=== PATIENT | female | born 1950 | race Caucasian/White ===

== ENCOUNTER 2019-12-23 17:07 | Outpatient (REF) | payer SELFPAY ==
[2019-12-23 19:35] LABS: Abs Immature Grans 0.08 10^3/uL (0.0-0.06); Absolute Basophil Count 0.04 10^3/uL (0.0-0.2); Absolute Eosinophil Count 0.35 10^3/uL (0.0-0.7); Absolute Lymphocyte Count 2.16 10^3/uL (1.2-3.4); Absolute Monocyte Count 0.66 10^3/uL (0.1-0.8); Absolute Neutrophil Count 5.67 10^3/uL (1.2-6.7); Basophils % 0.4; Eosinophils % 3.9; HCT 31.8 % (36.0-46.0); HGB 8.8 g/dL (11.2-15.7); Immature Grans % 0.9; Lymphocytes % 24.1; MCH 26.3 pg (27.0-33.0); MCHC 27.7 % (32.0-36.0); MCV 95.2 fL (80-95); MPV 9.4 fL (8.0-11.0); Monocytes % 7.4; Neutrophils % 63.3; Nucleated RBC 0 %; Platelet Count 336 10^3/uL (130-400); RBC 3.34 10^6/uL (3.93-5.22); RDW 15.7 % (11.7-14.6); RDW-SD 54.4 fL; WBC 8.96 10^3/uL (4.4-10.8)
[2019-12-23 19:51] LABS: Anion Gap 1.3 mmol/L (3-11); BUN 11 mg/dL (7-18); CO2 37.7 mmol/L (21.0-32.0); CREATININE 0.79 mg/dL (0.55-1.02); Calcium 8.9 mg/dL (8.5-10.1); Chloride 99 mmol/L (98-107); Glucose 111 mg/dL (74-106); Potassium 4.7 mmol/L (3.5-5.1); Sodium 138 mmol/L (136-145); TSH (W/Ref FT4) 18.04 uIU/mL (0.36-3.74)
[2019-12-23 20:14] LABS: FREE T4 0.56 ng/dL (0.76-1.46)
[2019-12-23 20:16] LABS: Hypochromasia 2+
[2019-12-24 17:57] LABS: COVID-19 RT-PCR Result Not Detected ((See Note))
== END 2019-12-23 17:27 ==
LOC: LBN 17:07
PROVIDERS: Visit Provider Family Medicine
DX: E11.9 Type 2 diabetes mellitus without complications (principal); R53.1 Weakness; F39 Unspecified mood [affective] disorder; L03.115 Cellulitis of right lower limb; J44.1 Chronic obstructive pulmonary disease with (acute) exacerbation; E66.01 Morbid (severe) obesity due to excess calories; Z11.59 Encounter for screening for other viral diseases
CPT/HCPCS: 80048; U0003; 83036; 84439; 84443; 85025

== ENCOUNTER 2019-12-31 16:10 | Outpatient (REF) | payer SELFPAY ==
[2020-01-01 18:57] LABS: COVID-19 RT-PCR Result Not detected ((See Note))
== END 2019-12-31 16:30 ==
LOC: LBO 16:10
PROVIDERS: Visit Provider Family Medicine
DX: Z11.59 Encounter for screening for other viral diseases (principal)
CPT/HCPCS: U0003

== ENCOUNTER 2020-01-14 11:32 | Inpatient (IN) | payer MEDICARE, MEDICAID, SELFPAY ==
[2020-01-14] VITALS (82 sets, daily range): BP systolic 94–148; BP diastolic 36–122; PULSE 62–111; RESP 10–28; TEMP 36.4–37.4; O2SAT 80–100
--- NOTE | 2020-01-14 11:45 | RT.EKG_ITS ---
APPROVED REPORT Exam: Resting ECG Patient Location: E HR:70 bpm ECG Measurements Heart Rate 70 AXIS LA 203 P 84 QRSd 130 QRS 78 QT 504 T 100 QTc 543 Conclusion Sinus rhythm...normal P axis, V-rate 60- 99 IVCD, consider RBBB...QRSd>120mS, terminal axis(90,270) Consider anterior infarct...Q >30mS in V2-V5 Repol abnrm suggests ischemia, lateral leads...ST dep, T neg, I aVL V5 V6. No old EKG to compare. No acute ST elevation or depression. I have reviewed and interpreted ECG and agree with software generated interpretation.
--- NOTE | 2020-01-14 11:49 | DI.CT_ITS ---
EXAM: CT HEAD WO CLINICAL HISTORY: AMS. TECHNIQUE: Imaging Protocol: Axial computed tomography images with coronal and sagittal reformatted images were created and reviewed COMPARISON: No exams were available for comparison FINDINGS: The examination is limited due to patient motion artifact. Ventricles and Extra axial spaces: Normal in size and morphology for the patient's age. Hemorrhage: None. Cerebral parenchyma: There are areas of decreased attenuation in the white matter most consistent wit h chronic microvascular ischemic change. No evidence of an acute territorial infarct. Midline shift: None. Brainstem/Cerebellum: Normal. Calvarium: Normal. Visualized Paranasal sinuses/Mastoids: Clear. Soft Tissues: Unremarkable. IMPRESSION: No acute intracranial process. Findings were discussed with the emergency department on the date of the examination. RADIATION DOSE DELIVERED: Total DLP DATA REPOSITORY: All CT scans at this facility are submitted to the National Radiology Data Registry (NRDR) Dose Index Registry (DIR) with the [employer] (ACR). RADIATION OPTIMIZATION: All CT scans at this facility use at least one of these dose optimization te chniques: automated exposure control; mA and/or kV adjustment per patient size (includes targeted exa ms where dose is matched to clinical indication); or iterative reconstruction.
[2020-01-14] MEDS: Normal Saline Flush 10 ML SYR IVP (11:50)
--- NOTE | 2020-01-14 11:55 | ED.GENADUL_ITS ---
Discharge Plan Disposition Patient Disposition: [facility] INPATIENT Condition: Serious Discharge Details Clinical Impression: Altered mental status, Pneumonia, Cellulitis Primary Care Provider: Unknown,Unknown ED Provider: Marcel Hadley Home Meds and New Rx's Prescriptions: No Action aspirin [Aspir-Low] 81 mg Tablet,Delayed Release (Dr/Ec) 81 mg PO QAM RF: 0 citalopram 40 mg tablet 40 mg PO QAM RF: 0 diltiazem HCl [DILT-XR] 240 mg capsule,ext.rel 24h degradable 240 mg PO QAM RF: 0 folic acid 1 mg Tablet 1 mg PO QAM RF: 0 omeprazole 40 mg capsule,delayed release(DR/EC) 40 mg PO QAM RF: 0 Spiriva Respimat 2.5 mcg/actuation mist 1 inh INHALATION DAILY RF: 0 tolterodine 4 mg capsule,extended release 24hr 4 mg PO QAM RF: 0 cyanocobalamin (vitamin B-12) [Vitamin B-12] 100 mcg Tablet 100 mcg PO QAM RF: 0 amiodarone 200 mg tablet 200 mg PO BID RF: 0 budesonide-formoterol [Symbicort] 160-4.5 mcg/actuation HFA aerosol inhaler 2 inh INHALATION BID RF: 0 Eliquis 5 mg tablet 5 mg PO BID RF: 0 metoprolol tartrate 25 mg tablet 25 mg PO BID RF: 0 levothyroxine 75 mcg Tablet 37.5 mcg PO QAM RF: 0 furosemide [Lasix] 20 mg Tablet 20 mg PO QAM RF: 0 albuterol sulfate 90 mcg/actuation HFA aerosol inhaler 2 inh INHALATION Q4H PRNRF: 0 tramadol 50 mg Tablet 50 mg PO QID PRNRF: 0 triamcinolone acetonide 0.5 % cream 1 applic TOPICAL BID PRNRF: 0 acetaminophen [Tylenol] 325 mg Tablet 650 mg PO Q4H PRNRF: 0 sodium chloride [Saline Nasal Mist] 0.65 % Aerosol,[place] 2 spray INTRANASAL Q2H PRNRF: 0 Saline Nasal (aloe vera) Gel 1 applic intranasal TID PRNRF: 0 epinephrine [Epi E-Z Pen] 0.3 mg/0.3 mL Auto-Injector 0.3 mg IM PRN PRNRF: 0 polyethylene glycol 3350 [Miralax] 17 gram/dose Powder 17 g PO DIRECTED RF: 0 metformin [Glucophage] 1,000 mg Tablet 1,000 mg PO BID RF: 0 Medical Decision Making This is a 69-year-old female with past medical history that includes diabetes, morbid obesity, COPD, atrial fibrillation, on Eliquis. She has recently been placed into a penitentiary and did complete a 14-day quarantine. Presents to the ER today for decreased mental status that began this morning, did vomit x1 this morning after taking medications, and staff reports low-grade fever of 99.8 and no bowel movement in the past 5 days. Patient currently awake, alert to self, knows that she is at a hospital, and has no complaints. She denies any pain whatsoever. HPI and physical are both limited secondary to her mental status and her body habitus. Will initiate a septic and cardiac work-up. We will give a single liter IV fluid. Clinically she does appear to have mild left lower extremity cellulitis. Will obtain CT of head for altered mental status. Laboratory values reveal a white blood cell count of 34.05 hemoglobin 8.3 hematocrit 28.7 platelet count 295. INR 1.2 potassium 3.9 BUN 18 creatinine 0.94 with a GFR of 58.70. Glucose 177. Magnesium 1.6, will give 1 g IV. BNP 1645. Troponin less than 0.05. TSH 4.91 Free T4 0.74. Urine is clear, negative for blood, negative nitrate, negative leuk esterase. Patient has remained hemodynamically stable under my care. Clinically she does have a mild cellulitis that left lower extremity, it is certainly not impressive, difficult to believe that it explains her white blood cell count of 34.05. Given the limited HPI and physical, will add on CT imaging with contrast of chest, abdomen, pelvis. We will be able to better evaluate for potential infectious process, pneumonia, small bowel obstruction, etc. The CT of head read as no acute intracranial process. CT imaging of chest, abdomen, pelvis read as no acute abdominal or pelvic process. Colonic diverticulosis but no evidence of acute diverticulitis. Mildly enlarged lymph nodes in the axilla and pelvis, these are nonspecific. Small infiltrate medially in the right middle lobe and left lingula, this may represent atelectasis, pneumonia, scarring. Given her decreased mental status, elevated white count, I do believe that admission is prudent. Case was discussed with Dr. Mayfield, potential source of cellulitis and/or pneumonia. She recommends both vancomycin and ceftriaxone, I did write for both of antibiotics. She is agreeable to admission. Medical Records Medical records reviewed: Yes I reviewed the patient's medical records. Lab Data Lab results reviewed: Yes I reviewed the patient's lab results. Lab results narrative: 01/14/20 12:55 Blood Blood Culture - Pending 01/14/20 11:50 Blood Blood Culture - Pending 01/14/20 12:12 Nose MRSA Screen - Pending Laboratory Tests Range/Units 01/14/20 01/14/20 01/14/20 11:50 11:50 11:50 WBC (4.4-10.8) 10^3/uL 34.05 H* RBC (3.93-5.22) 10^6/uL 3.31 L Hgb (11.2-15.7) g/dL 8.3 L Hct (36.0-46.0) % 28.7 L MCV (80-95) fL 86.7 MCH (27.0-33.0) pg 25.1 L MCHC (32.0-36.0) % 28.9 L RDW (11.7-14.6) % 17.5 H Plt Count (130-400) 10^3/uL 295 MPV (8.0-11.0) fL 8.9 Immature Gran % See Differential Neutrophils % 94.0 Lymphocytes % 1.0 Monocytes % 3.0 Eosinophils % 0.0 Basophils % 0.0 Metamyelocytes % 1 Myelocytes % 1 Nucleated RBC % % 0 Absolute Neutrophils (1.2-6.7) 10^3/uL 32.01 H Absolute Lymphocytes (1.2-3.4) 10^3/uL 0.34 L Absolute Monocytes (0.1-0.8) 10^3/uL 1.02 H Absolute Eosinophils (0.0-0.7) 10^3/uL 0.00 Absolute Basophils (0.0-0.2) 10^3/uL 0.00 RBC Morphology See below Polychromasia Present Hypochromasia 2+ Anisocytosis 1+ PT (9.3-11.0) sec 12.1 H INR (0.9-1.1) 1.2 H VBG Lactate (0.6-1.4) mmol/L Sodium (136-145) mmol/L 136 Potassium (3.5-5.1) mmol/L 3.9 Chloride (98-107) mmol/L 96 L Carbon Dioxide (21.0-32.0) mmol/L 32.2 H Anion Gap (3-11) mmol/L 7.8 BUN (7-18) mg/dL 18 Creatinine (0.55-1.02) mg/dL 0.94 Estimated GFR/1.73 m2 (mL/min/1.73m2) 58.70 Glucose (74-106) mg/dL 177 H Calcium (8.5-10.1) mg/dL 8.5 Magnesium (1.8-2.4) mg/dL 1.6 L Total Bilirubin (0.2-1.0) mg/dL 0.3 AST (15-37) U/L 24 ALT (14-59) U/L 21 Alkaline Phosphatase (46-116) U/L 75 Troponin I (<0.06) ng/mL < 0.05 NT-Pro-B Natriuret Pep (<300) pg/mL Total Protein (6.4-8.2) g/dL 6.7 Albumin (3.4-5.0) g/dL 2.7 L TSH (0.36-3.74) uIU/mL 4.62 H Free T4 (0.76-1.46) ng/dL Urine Color (Yellow) Urine Clarity (Clear) Urine pH (5-8) Ur Specific [place] (1.005-1.025) Urine Protein (Negative) mg/dL Urine Ketones (Negative) mg/dL Urine Blood (Negative) Urine Nitrite (Negative) Urine Bilirubin (Negative) Urine Urobilinogen (Up TO 0.2) EU/dL Ur Leukocyte Esterase (Negative) Urine RBC (0-2) HPF Urine WBC (0-5) HPF Ur Epithelial Cells (Negative) HPF Urine Crystals (Negative) HPF Urine Bacteria (Negative) HPF Urine Casts (Negative) LPF Urine Mucus (Negative) Ur Culture Indicated? Urine Glucose (Negative) mg/dL COVID-19 PCR Nasopharyn COVID-19 PCR Ref Test Perform Site Range/Units 01/14/20 01/14/20 01/14/20 11:50 12:12 12:12 WBC (4.4-10.8) 10^3/uL RBC (3.93-5.22) 10^6/uL Hgb (11.2-15.7) g/dL Hct (36.0-46.0) % MCV (80-95) fL MCH (27.0-33.0) pg MCHC (32.0-36.0) % RDW (11.7-14.6) % Plt Count (130-400) 10^3/uL MPV (8.0-11.0) fL Immature Gran % Neutrophils % Lymphocytes % Monocytes % Eosinophils % Basophils % Metamyelocytes % Myelocytes % Nucleated RBC % % Absolute Neutrophils (1.2-6.7) 10^3/uL Absolute Lymphocytes (1.2-3.4) 10^3/uL Absolute Monocytes (0.1-0.8) 10^3/uL Absolute Eosinophils (0.0-0.7) 10^3/uL Absolute Basophils (0.0-0.2) 10^3/uL RBC Morphology Polychromasia Hypochromasia Anisocytosis PT (9.3-11.0) sec INR (0.9-1.1) VBG Lactate (0.6-1.4) mmol/L Sodium (136-145) mmol/L Potassium (3.5-5.1) mmol/L Chloride (98-107) mmol/L Carbon Dioxide (21.0-32.0) mmol/L Anion Gap (3-11) mmol/L BUN (7-18) mg/dL Creatinine (0.55-1.02) mg/dL Estimated GFR/1.73 m2 (mL/min/1.73m2) Glucose (74-106) mg/dL Calcium (8.5-10.1) mg/dL Magnesium (1.8-2.4) mg/dL Total Bilirubin (0.2-1.0) mg/dL AST (15-37) U/L ALT (14-59) U/L Alkaline Phosphatase (46-116) U/L Troponin I (<0.06) ng/mL NT-Pro-B Natriuret Pep (<300) pg/mL 1645 H Total Protein (6.4-8.2) g/dL Albumin (3.4-5.0) g/dL TSH (0.36-3.74) uIU/mL Free T4 (0.76-1.46) ng/dL Urine Color (Yellow) Yellow Urine Clarity (Clear) Clear Urine pH (5-8) 8.5 H Ur Specific [place] (1.005-1.025) 1.020 Urine Protein (Negative) mg/dL Trace H Urine Ketones (Negative) mg/dL Trace H Urine Blood (Negative) Negative Urine Nitrite (Negative) Negative Urine Bilirubin (Negative) Negative Urine Urobilinogen (Up TO 0.2) EU/dL 0.2 Ur Leukocyte Esterase (Negative) Negative Urine RBC (0-2) HPF Negative Urine WBC (0-5) HPF 0-2 Ur Epithelial Cells (Negative) HPF Moderate Urine Crystals (Negative) HPF Negative Urine Bacteria (Negative) HPF Negative Urine Casts (Negative) LPF Negative Urine Mucus (Negative) Trace Ur Culture Indicated? No/sq. contamination Urine Glucose (Negative) mg/dL Negative COVID-19 PCR Cancelled Nasopharyn COVID-19 PCR Cancelled Ref Test Perform Site Cancelled Range/Units 01/14/20 01/14/20 12:55 12:55 WBC (4.4-10.8) 10^3/uL RBC (3.93-5.22) 10^6/uL Hgb (11.2-15.7) g/dL Hct (36.0-46.0) % MCV (80-95) fL MCH (27.0-33.0) pg MCHC (32.0-36.0) % RDW (11.7-14.6) % Plt Count (130-400) 10^3/uL MPV (8.0-11.0) fL Immature Gran % Neutrophils % Lymphocytes % Monocytes % Eosinophils % Basophils % Metamyelocytes % Myelocytes % Nucleated RBC % % Absolute Neutrophils (1.2-6.7) 10^3/uL Absolute Lymphocytes (1.2-3.4) 10^3/uL Absolute Monocytes (0.1-0.8) 10^3/uL Absolute Eosinophils (0.0-0.7) 10^3/uL Absolute Basophils (0.0-0.2) 10^3/uL RBC Morphology Polychromasia Hypochromasia Anisocytosis PT (9.3-11.0) sec INR (0.9-1.1) VBG Lactate (0.6-1.4) mmol/L 1.9 H Sodium (136-145) mmol/L Potassium (3.5-5.1) mmol/L Chloride (98-107) mmol/L Carbon Dioxide (21.0-32.0) mmol/L Anion Gap (3-11) mmol/L BUN (7-18) mg/dL Creatinine (0.55-1.02) mg/dL Estimated GFR/1.73 m2 (mL/min/1.73m2) Glucose (74-106) mg/dL Calcium (8.5-10.1) mg/dL Magnesium (1.8-2.4) mg/dL Total Bilirubin (0.2-1.0) mg/dL AST (15-37) U/L ALT (14-59) U/L Alkaline Phosphatase (46-116) U/L Troponin I (<0.06) ng/mL NT-Pro-B Natriuret Pep (<300) pg/mL Total Protein (6.4-8.2) g/dL Albumin (3.4-5.0) g/dL TSH (0.36-3.74) uIU/mL 4.91 H Free T4 (0.76-1.46) ng/dL 0.74 L Urine Color (Yellow) Urine Clarity (Clear) Urine pH (5-8) Ur Specific [place] (1.005-1.025) Urine Protein (Negative) mg/dL Urine Ketones (Negative) mg/dL Urine Blood (Negative) Urine Nitrite (Negative) Urine Bilirubin (Negative) Urine Urobilinogen (Up TO 0.2) EU/dL Ur Leukocyte Esterase (Negative) Urine RBC (0-2) HPF Urine WBC (0-5) HPF Ur Epithelial Cells (Negative) HPF Urine Crystals (Negative) HPF Urine Bacteria (Negative) HPF Urine Casts (Negative) LPF Urine Mucus (Negative) Ur Culture Indicated? Urine Glucose (Negative) mg/dL COVID-19 PCR Nasopharyn COVID-19 PCR Ref Test Perform Site ECG Data Attestation: I personally reviewed and interpreted this ECG (s) as follows: Interpretation: Please see official report by Dr. Davis. Sinus rhythm, ventricular to 70. No STEMI. HPI General Mode of arrival: EMS . Date/Time Provider Initiated Documentation: 01/14/20 11:49 . Limitations to Documentation: altered mental status . Information obtained by: patient, EMS and old records reviewed . HPI Narrative: This is a 69-year-old female with past medical history atrial fibrillation, bilateral lower extremity cellulitis, COPD, diabetes, mood disorder, obesity, generalized muscle weakness presenting from local [facility] for evaluation. Patient sent to the ER for evaluation of altered mental status that began this morning associate with a temperature of 99.8. Patient is a fairly new resident of this penitentiary and did have to do a 14-day quarantine before going into the general population. Patient at this time denies any pain, is unsure why she is here. She is able to tell me that she does have frequent falls but denies any fall over the past 24 hours or recent injuries from her falls. She denies headache, neck pain, chest pain. She reports that her breathing status is at baseline, typically on 4 L nasal cannula. Denies abdominal pain, nausea, vomiting. Patient is only able to partially partake in her HPI and examination. I did need to review records from her penitentiary. Apparently the patient has been on doxycycline for bilateral lower extremity cellulitis. She is also on Eliquis. We were told from the penitentiary that she has not had a normal bowel movement in 5 days and did vomit once this morning after taking her medications. Related Data Home Medications Medication Instructions Recorded Confirmed acetaminophen [Tylenol] 650 mg PO Q4H PRN 01/14/20 01/14/20 albuterol sulfate 2 inh INHALATION Q4H PRN 01/14/20 01/14/20 amiodarone 200 mg PO BID 01/14/20 01/14/20 apixaban [Eliquis] 5 mg PO BID 01/14/20 01/14/20 aspirin [Aspir-Low] 81 mg PO QAM 01/14/20 01/14/20 budesonide-formoterol [Symbicort] 2 inh INHALATION BID 01/14/20 01/14/20 citalopram 40 mg PO QAM 01/14/20 01/14/20 cyanocobalamin (vitamin B-12) 100 mcg PO QAM 01/14/20 01/14/20 [Vitamin B-12] diltiazem HCl [DILT-XR] 240 mg PO QAM 01/14/20 01/14/20 epinephrine [Epi E-Z Pen] 0.3 mg IM PRN PRN 01/14/20 01/14/20 folic acid 1 mg PO QAM 01/14/20 01/14/20 furosemide [Lasix] 20 mg PO QAM 01/14/20 01/14/20 levothyroxine 37.5 mcg PO QAM 01/14/20 01/14/20 metformin [Glucophage] 1,000 mg PO BID 01/14/20 01/14/20 metoprolol tartrate 25 mg PO BID 01/14/20 01/14/20 omeprazole 40 mg PO QAM 01/14/20 01/14/20 polyethylene glycol 3350 [Miralax] 17 g PO DIRECTED 01/14/20 01/14/20 sodium chloride [Saline Nasal Mist] 2 spray INTRANASAL Q2H PRN 01/14/20 01/14/20 sodium chloride-aloe vera [Saline 1 applic INTRANASAL TID PRN 01/14/20 01/14/20 Nasal (aloe vera)] tiotropium bromide [Spiriva 1 inh INHALATION DAILY 01/14/20 01/14/20 Respimat] tolterodine 4 mg PO QAM 01/14/20 01/14/20 tramadol 50 mg PO QID PRN 01/14/20 01/14/20 triamcinolone acetonide 1 applic TOPICAL BID PRN 01/14/20 01/14/20 Allergies Allergy/AdvReac Type Severity Reaction Status Date / Time bee venom protein (honey bee) Allergy Unknown Unverified 01/14/20 11:44 Penicillins Allergy Unknown Unverified 01/14/20 11:43 strawberry Allergy Unknown Unverified 01/14/20 11:43 General Stated Complaint: AMS/LOC KENDRICK: 2 Review of Systems Constitutional Constitutional: Denies fatigue, Reports fever(s) and Denies headache(s) Eyes Eyes: Denies change in vision ENT Ears, Nose, Mouth, and Throat: Denies headache(s) and Denies neck pain Cardiovascular Cardiovascular: Denies chest pain and Reports dyspnea (At baseline) Respiratory Respiratory: Denies cough and Reports dyspnea (At baseline) Gastrointestinal Gastrointestinal: Denies abdominal pain, Reports constipation, Denies nausea and Reports vomiting Genitourinary Genitourinary: Denies dysuria Musculoskeletal Musculoskeletal: Denies back pain and Denies neck pain Integumentary/Breasts Skin/Breast: Reports erythema and Reports rash Neurologic Neurologic: Denies headache(s) Endocrine Endocrine: Denies fatigue [facility] Medical History Atrial fibrillation Cellulitis bilateral lower extremities COPD (chronic obstructive pulmonary disease) Diabetes mellitus Mood disorder Muscle weakness (generalized) Obesity Social History Smoking risk assessment performed?: No Exam Const General: cooperative, comfortable, in distress, disheveled and ill appearing Nutritional Appearance: obese morbidly obese Orientation: alert, awake, oriented to person, oriented to place (Patient notes that she is in a hospital, [place] [facility] [place] and not oriented to time Limitations: altered mental status HENMT Head: normal to inspection, normocephalic and atraumatic Face and sinus: normal facial exam Mouth: moist mucous membranes Throat: posterior oropharynx normal Eyes General: appearance normal, both eyes and all related structures Alignment and Position: alignment normal Periorbital: periorbital findings normal Eyelids: eyelids normal Conjunctivae: conjunctivae normal Sclera: sclerae normal Cornea: corneas normal Pupils: PERRL EOM: EOM intact bilaterally Direct ophthalmoscopy: normal light reflex Neck Neck: normal visual inspection, full ROM, no lymphadenopathy, no meningeal signs, trachea midline, supple and nontender Resp Effort & Inspection: normal respiratory effort and able to speak in complete sentences Auscultation: diminished lung sounds bilaterally in the lower lung askew Cardio Rate: regular rate Rhythm: regular rhythm GI Inspection: large pannus and obesity Palpation: soft, no guarding and nontender Auscultation: normal bowel sounds Back/Spine/Pelvis Back: No back tenderness Skin Other: Patient does have a rash consistent with candidiasis in her skin folds. Neuro General: patient alert, patient awake, oriented Patient Orientation: Person, Place (Aware this is a hospital, believed [facility] [place] and Time, moves all extremities, no meningeal signs and no focal motor deficits Cranial Nerves: CN's II-XI intact bilaterally Motor: muscle tone normal throughout and strength 5/5 throughout Sensory Exam: no sensory deficits noted Extrem Right upper extremity: normal to inspection, full ROM and normal capillary refill Left upper extremity: normal to inspection, full ROM and normal capillary refill Right lower extremity: full ROM, normal capillary refill and edema Details: 2+ Left lower extremity: full ROM, normal capillary refill and edema Details: 3+ (With weeping and mild surrounding erythema-no warmth) Psych Appearance: grossly normal Mental Status: mental status grossly normal Course Vital Signs Vital signs: Vital Signs Temperature 37.4 C 01/14/20 11:33 Pulse 76 01/14/20 11:33 Respiratory Rate 24 01/14/20 11:33 Blood Pressure 122/54 L 01/14/20 11:33 Pulse Oximetry 97 01/14/20 11:33 Temperature 37.4 C 01/14/20 11:33 Temperature Source Skin 01/14/20 11:33 Pulse 76 01/14/20 11:33 Respiratory Rate 24 01/14/20 11:33 Blood Pressure 122/54 L 01/14/20 11:33 Pulse Oximetry 97 01/14/20 11:33 Oxygen Delivery Method Non-Rebreather 01/14/20 11:33 Pain Level 0 01/14/20 11:33 Comment cellulitis bilateral lower legs 01/14/20 11:33
[2020-01-14 12:24] LABS: Bilirubin Negative (Negative); Blood Negative (Negative); Clarity Clear (Clear); Glucose Negative (Negative); Ketones Trace mg/dL (Negative); Leukocyte Esterase Negative (Negative); Nitrite Negative (Negative); Urobilinogen 0.2 EU/dL (Up TO 0.2); pH 8.5 (5-8)
[2020-01-14 12:28] LABS: Abs Immature Grans 0.64 10^3/uL (0.0-0.06); HCT 28.7 % (36.0-46.0); HGB 8.3 g/dL (11.2-15.7); MCH 25.1 pg (27.0-33.0); MCHC 28.9 % (32.0-36.0); MCV 86.7 fL (80-95); MPV 8.9 fL (8.0-11.0); Nucleated RBC 0 %; Platelet Count 295 10^3/uL (130-400); RBC 3.31 10^6/uL (3.93-5.22); RDW 17.5 % (11.7-14.6); RDW-SD 55.4 fL
[2020-01-14 12:41] LABS: INR 1.2 (0.9-1.1); Prothrombin Time 12.1 sec (9.3-11.0)
[2020-01-14 12:47] LABS: NT-proBNP 1645 pg/mL (<300)
[2020-01-14 12:50] LABS: ALT 21 U/L (14-59); AST 24 U/L (15-37); Albumin 2.7 g/dL (3.4-5.0); Alkaline Phosphatase 75 U/L (46-116); Anion Gap 7.8 mmol/L (3-11); BUN 18 mg/dL (7-18); Bilirubin, Total 0.3 mg/dL (0.2-1.0); CO2 32.2 mmol/L (21.0-32.0); CREATININE 0.94 mg/dL (0.55-1.02); Calcium 8.5 mg/dL (8.5-10.1); Chloride 96 mmol/L (98-107); Glucose 177 mg/dL (74-106); Magnesium 1.6 mg/dL (1.8-2.4); Potassium 3.9 mmol/L (3.5-5.1); Sodium 136 mmol/L (136-145); TSH 4.62 uIU/mL (0.36-3.74); Total Protein 6.7 g/dL (6.4-8.2)
[2020-01-14 12:54] LABS: WBC 34.05 10^3/uL (4.4-10.8)
[2020-01-14 12:55] LABS: Absolute Lymphocyte Count 0.34 10^3/uL (1.2-3.4); Absolute Monocyte Count 1.02 10^3/uL (0.1-0.8); Absolute Neutrophil Count 32.01 10^3/uL (1.2-6.7); Anisocytosis 1+; Diff Comment Manual Differential; Metamyelocytes % 1; Myelocytes % 1
[2020-01-14 12:56] LABS: Hypochromasia 2+; Polychromasia Present
--- NOTE | 2020-01-14 12:59 | DI.CT_ITS ---
EXAM: CT CHEST/ABD/PEL W CLINICAL HISTORY: AMS, WBC 34 TECHNIQUE: Imaging Protocol: Axial computed tomography images with coronal and sagittal reformatted images were created and reviewed CONTRAST MATERIAL: Intravenous: Omnipaque 350 Contrast volume:100 mL Oral: No COMPARISON: No exams were available for comparison FINDINGS: The examination is limited due to patient motion artifact. CHEST: Tracheobronchial tree: Patent where visualized. Mediastinum and Kirsten: No dominant adenopathy or fluid collection. Pulmonary parenchyma: Small infiltrates are seen in the medial aspects of the right middle lobe and t he left lingula. This may represent atelectasis, pneumonia or scarring. No architectural distortion . Pleura: No effusion or pneumothorax. Heart: Cardiomegaly. No coronary artery calcifications are seen. No pericardial effusion. Aorta: Thoracic aorta non-dilated. Atherosclerosis. Calcification of the aortic valve. Lymph nodes: Mildly enlarged lymph nodes in the axilla. Bones:Degenerative changes. Soft tissues: Unremarkable. ABDOMEN: Liver: Normal density. No measurable mass. Portal, Superior Mesenteric, and Splenic Veins: Unremarkable. Gallbladder and Biliary Tract: No radiodense calculus or dilation. Pancreas: Normal density, no abnormal calcifications or inflammatory process. Spleen: Normal. Adrenals: No masses seen. Kidneys: Normal size, contour and axis. No radiodense stones or obstructive uropathy. Simple left nida al cysts. Abdominal Aorta: Abdominal portion non-dilated. Atherosclerosis. Bowel: No obstruction or bowel wall thickening. No evidence of acute appendicitis. Colonic diverticu losis but no evidence of acute diverticulitis. Peritoneal Cavity: No ascites, collection or mesenteric inflammatory response. Lymph Nodes: Mildly enlarged lymph nodes in the pelvis. The largest measures 2.3 x 1.3 cm. It is lo cated in the left external iliac chain. Mildly enlarged lymph nodes in the inguinal region bilateral ly. Bones: Degenerative changes Soft Tissues: Mild edema in the in the subcutaneous tissues of the anterior abdominal wall. PELVIS: Bladder: A Hoffmann catheter within the urinary bladder. Reproductive Organs: Status post hysterectomy. Lymph Nodes: See above. Bones: Within normal limits. IMPRESSION: 1. No acute abdominal or pelvic process. 2. Colonic diverticulosis but no evidence of acute diverticulitis. 3. Mildly enlarged lymph loads in the axilla and pelvis. These are nonspecific. 4. Small infiltrates medially in the right middle lobe and left lingula. This may represent atelecta sis, pneumonia or scarring. 5. Findings were discussed with the emergency department on the date of the examination. RADIATION DOSE DELIVERED: Total DLP DATA REPOSITORY: All CT scans at this facility are submitted to the National Radiology Data Registry (NRDR) Dose Index Registry (DIR) with the [employer] ([employer]). RADIATION OPTIMIZATION: All CT scans at this facility use at least one of these dose optimization te chniques: automated exposure control; mA and/or kV adjustment per patient size (includes targeted exa ms where dose is matched to clinical indication); or iterative reconstruction.
[2020-01-14 13:03] LABS: Troponin I < 0.05 ng/mL (<0.06)
[2020-01-14 13:05] LABS: Bacteria Negative HPF (Negative); C & S Indicated? No/Sq. Contamination; Casts Negative LPF (Negative); Crystals Negative HPF (Negative); Epithelial Cells Moderate HPF (Negative); Mucus Trace (Negative); RBC Negative HPF (0-2); WBC 0-2 HPF (0-5)
[2020-01-14 13:18] LABS: Lactate 1.9 mmol/L (0.6-1.4)
[2020-01-14] MEDS: Omnipaque 350 MG/ML 100 ML BTL IV (13:21)
[2020-01-14 13:43] LABS: TSH (W/Ref FT4) 4.91 uIU/mL (0.36-3.74)
[2020-01-14] MEDS: Normal Saline 1,000 ML 1000 ML IV (13:48)
[2020-01-14] MEDS: MAGNESIUM SULFATE 1 GM/100 ML BAG IVPB ×2 (13:49→17:53)
[2020-01-14 14:00] LABS: FREE T4 0.74 ng/dL (0.76-1.46)
[2020-01-14 15:32] LABS: Procalcitonin 1.8 ng/mL
[2020-01-14] MEDS: cefTRIAXone 2 GM/50 ML BAG IVPB (15:34)
--- NOTE | 2020-01-14 15:56 | W.PM.HP.N ---
Date of service: 01/14/20 Time of Service: 15:56 Assessment and Plan Assessment and plan (1) Sepsis: Status: Acute Assessment and plan: Likely multifactorial, due to PNA and cellulitis LLE, present on admission. Blood cultures are pending. Continue empiric vancomycin/ceftriaxone. Clinically the patient cannot tolerate IVF at this time as she is requiring diuresis. Will attempt to obtain/review past medical records to help guide further antibiotic therapy. (2) Acute on chronic respiratory failure with hypoxia and hypercapnia: Status: Acute Assessment and plan: Due to PNA, acute exacerbation of COPD, suspected OHS. Checking ABG. Admit to the ICU on BiPAP with steroids, scheduled and prn nebs. Repeat ABG in 1 hour. Diurese, treat PNA. (3) Pneumonia: Status: Acute Assessment and plan: As above (4) Cellulitis: Status: Acute Assessment and plan: As above (5) Toxic metabolic encephalopathy: Status: Acute Assessment and plan: Likely combination of septic + CO2 retention (ABG pending to confirm). Monitor mental status with above measures. (6) CHF (congestive heart failure): Status: Chronic Assessment and plan: Acute on chronic. Diurese with IV lasix. Check echo. MOnitor I/O's, daily weights. Has a kebede. Cardiac monitoring to ensure that does not have rapid afib. (7) Hypomagnesemia: Status: Acute Assessment and plan: Replete and recheck in am (8) Obesity: Status: Chronic Assessment and plan: Likely has underlying OHS. ABG is being checked, but it is possible that the patient should not just be on oxygen, but also on BiPAP at night, based on her appearance. (9) DVT prophylaxis: Status: Acute Assessment and plan: On therapeutic eliquis (10) Discharge planning issues: Status: Acute Assessment and plan: Full code per records at the [facility]. Patient cannot cooperate with this conversation at this time Patient is being admitted to the ICU as a PUI. Total Critical Care Time - 1 hour. 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 In the ED, her temperature is 37.4, and reportedly she is A&Ox3. Her imaging shows a possible right middle lobe and left lingular pneumonia. Her WBC count was 34.05, and procalcitonin is 1.8, warranting initiation of empiric antibiotics (vancomycin, ceftriaxone; she is allergic to penicillins). Her UA is negative; blood cultures are pending. We were asked to admit the patient for further care. On my exam, the patient is shaking, lethargic. She arouses with difficulty to both verbal and painful stimuli. She answers yes to feeling cold and being short of breath. She does not answer my other questions. I am unable to get her PMHx from her. She cannot have a code status discussion with me at this time. Review of Systems Narrative: The patient does report feeling cold and short of breath. She is not answering my other questions. All systems reviewed & are unremarkable except as noted in HPI and below and Unobtainable due to mental condition [facility] Medical History Atrial fibrillation Cellulitis bilateral lower extremities Chronic respiratory failure with hypoxia COPD (chronic obstructive pulmonary disease) Diabetes mellitus Family history unobtainable due to patient's condition Mood disorder Muscle weakness (generalized) Obesity Surgical History Surgical history unknown Family History (Updated 01/14/20 @ 16:28 by Tawnya Mayfield MD) Other Family history unobtainable due to patient's condition Social History Smoking risk assessment performed?: No Meds Home Medications and Allergies Home Medications Medication Instructions Recorded Confirmed Type acetaminophen [Tylenol] 650 mg PO Q4H PRN 01/14/20 01/14/20 History albuterol sulfate 2 inh INHALATION Q4H PRN 01/14/20 01/14/20 History amiodarone 200 mg PO BID 01/14/20 01/14/20 History apixaban [Eliquis] 5 mg PO BID 01/14/20 01/14/20 History aspirin [Aspir-Low] 81 mg PO QAM 01/14/20 01/14/20 History budesonide-formoterol [Symbicort] 2 inh INHALATION BID 01/14/20 01/14/20 History citalopram 40 mg PO QAM 01/14/20 01/14/20 History cyanocobalamin (vitamin B-12) 100 mcg PO QAM 01/14/20 01/14/20 History [Vitamin B-12] diltiazem HCl [DILT-XR] 240 mg PO QAM 01/14/20 01/14/20 History epinephrine [Epi E-Z Pen] 0.3 mg IM PRN PRN 01/14/20 01/14/20 History folic acid 1 mg PO QAM 01/14/20 01/14/20 History furosemide [Lasix] 20 mg PO QAM 01/14/20 01/14/20 History levothyroxine 37.5 mcg PO QAM 01/14/20 01/14/20 History metformin [Glucophage] 1,000 mg PO BID 01/14/20 01/14/20 History metoprolol tartrate 25 mg PO BID 01/14/20 01/14/20 History omeprazole 40 mg PO QAM 01/14/20 01/14/20 History polyethylene glycol 3350 [Miralax] 17 g PO DIRECTED 01/14/20 01/14/20 History sodium chloride [Saline Nasal Mist] 2 spray INTRANASAL Q2H PRN 01/14/20 01/14/20 History sodium chloride-aloe vera [Saline 1 applic INTRANASAL TID PRN 01/14/20 01/14/20 History Nasal (aloe vera)] tiotropium bromide [Spiriva 1 inh INHALATION DAILY 01/14/20 01/14/20 History Respimat] tolterodine 4 mg PO QAM 01/14/20 01/14/20 History tramadol 50 mg PO QID PRN 01/14/20 01/14/20 History triamcinolone acetonide 1 applic TOPICAL BID PRN 01/14/20 01/14/20 History Allergies Allergy/AdvReac Type Severity Reaction Status Date / Time bee venom protein (honey bee) Allergy Unknown Unverified 01/14/20 11:44 Penicillins Allergy Unknown Unverified 01/14/20 11:43 strawberry Allergy Unknown Unverified 01/14/20 11:43 Exam Narrative Exam Narrative: General: Obese, tremulous female, confused, lethargic, arousable after some painful/loud verbal stimuli, answers very few questions, grunting on exhalation, tachypneic Neurological: lethargic, arousable, A&Ox1, difficult to perform a full neurological examination due to mental status, but no obvious focal deficits Psychiatric: difficult to examine due to mental status Skin: LLE erythema c/w mild cellulitis HEENT: [place], normocephalic, EOMI, dry MM, patient not coopeartive with opening mouth for exam, large neck diameter, unable to truly tell if she has a goiter or JVD, no lymphadenopathy Cardiovascular: RRR, no m/r/g Lungs: tachypenic, quiet rhonchi/rales on expiration Gastrointestinal: soft, nontender,nondistended Genitourinary: has a kebede Extremities: 2+ BLE edema, no c/c, no lesions on B feet; LLE erythematous c/w cellulitis, 1+ pedal pulses B Results Imaging Additional studies: CT head: No acute intracranial process. CT chest/abdomen/pelvis: 1. No acute abdominal or pelvic process. 2. Colonic diverticulosis but no evidence of acute diverticulitis. 3. Mildly enlarged lymph loads in the axilla and pelvis. These are nonspecific. 4. Small infiltrates medially in the right middle lobe and left lingula. This may represent atelectasis, pneumonia or scarring. 5. Findings were discussed with the emergency department on the date of the examination. EKG: HR 70, RBBB, no acute ischemia, no prior to compare Labs Result diagrams: 01/14/20 11:50 01/14/20 11:50 Labs: Laboratory Results - last 24 hr 01/14/20 01/14/20 01/14/20 11:50 11:50 11:50 WBC 34.05 H* RBC 3.31 L Hgb 8.3 L Hct 28.7 L MCV 86.7 MCH 25.1 L MCHC 28.9 L RDW 17.5 H Plt Count 295 MPV 8.9 Immature Gran % See Differential Neutrophils % 94.0 Lymphocytes % 1.0 Monocytes % 3.0 Eosinophils % 0.0 Basophils % 0.0 Metamyelocytes % 1 Myelocytes % 1 Nucleated RBC % 0 Absolute Neutrophils 32.01 H Absolute Lymphocytes 0.34 L Absolute Monocytes 1.02 H Absolute Eosinophils 0.00 Absolute Basophils 0.00 RBC Morphology See below Polychromasia Present Hypochromasia 2+ Anisocytosis 1+ PT 12.1 H INR 1.2 H VBG Lactate Sodium 136 Potassium 3.9 Chloride 96 L Carbon Dioxide 32.2 H Anion Gap 7.8 BUN 18 Creatinine 0.94 Estimated GFR/1.73 m2 58.70 Glucose 177 H Calcium 8.5 Magnesium 1.6 L Total Bilirubin 0.3 AST 24 ALT 21 Alkaline Phosphatase 75 Troponin I < 0.05 NT-Pro-B Natriuret Pep Total Protein 6.7 Albumin 2.7 L Procalcitonin TSH 4.62 H Free T4 Urine Color Urine Clarity Urine pH Ur Specific [place] Urine Protein Urine Ketones Urine Blood Urine Nitrite Urine Bilirubin Urine Urobilinogen Ur Leukocyte Esterase Urine RBC Urine WBC Ur Epithelial Cells Urine Crystals Urine Bacteria Urine Casts Urine Mucus Ur Culture Indicated? Urine Glucose COVID-19 PCR Nasopharyn COVID-19 PCR Ref Test Perform Site 01/14/20 01/14/20 01/14/20 11:50 12:12 12:12 WBC RBC Hgb Hct MCV MCH MCHC RDW Plt Count MPV Immature Gran % Neutrophils % Lymphocytes % Monocytes % Eosinophils % Basophils % Metamyelocytes % Myelocytes % Nucleated RBC % Absolute Neutrophils Absolute Lymphocytes Absolute Monocytes Absolute Eosinophils Absolute Basophils RBC Morphology Polychromasia Hypochromasia Anisocytosis PT INR VBG Lactate Sodium Potassium Chloride Carbon Dioxide Anion Gap BUN Creatinine Estimated GFR/1.73 m2 Glucose Calcium Magnesium Total Bilirubin AST ALT Alkaline Phosphatase Troponin I NT-Pro-B Natriuret Pep 1645 H Total Protein Albumin Procalcitonin TSH Free T4 Urine Color Yellow Urine Clarity Clear Urine pH 8.5 H Ur Specific [place] 1.020 Urine Protein Trace H Urine Ketones Trace H Urine Blood Negative Urine Nitrite Negative Urine Bilirubin Negative Urine Urobilinogen 0.2 Ur Leukocyte Esterase Negative Urine RBC Negative Urine WBC 0-2 Ur Epithelial Cells Moderate Urine Crystals Negative Urine Bacteria Negative Urine Casts Negative Urine Mucus Trace Ur Culture Indicated? No/sq. contamination Urine Glucose Negative COVID-19 PCR Cancelled Nasopharyn COVID-19 PCR Cancelled Ref Test Perform Site Cancelled 01/14/20 01/14/20 01/14/20 12:55 12:55 12:55 WBC RBC Hgb Hct MCV MCH MCHC RDW Plt Count MPV Immature Gran % Neutrophils % Lymphocytes % Monocytes % Eosinophils % Basophils % Metamyelocytes % Myelocytes % Nucleated RBC % Absolute Neutrophils Absolute Lymphocytes Absolute Monocytes Absolute Eosinophils Absolute Basophils RBC Morphology Polychromasia Hypochromasia Anisocytosis PT INR VBG Lactate 1.9 H Sodium Potassium Chloride Carbon Dioxide Anion Gap BUN Creatinine Estimated GFR/1.73 m2 Glucose Calcium Magnesium Total Bilirubin AST ALT Alkaline Phosphatase Troponin I NT-Pro-B Natriuret Pep Total Protein Albumin Procalcitonin 1.8 TSH 4.91 H Free T4 0.74 L Urine Color Urine Clarity Urine pH Ur Specific [place] Urine Protein Urine Ketones Urine Blood Urine Nitrite Urine Bilirubin Urine Urobilinogen Ur Leukocyte Esterase Urine RBC Urine WBC Ur Epithelial Cells Urine Crystals Urine Bacteria Urine Casts Urine Mucus Ur Culture Indicated? Urine Glucose COVID-19 PCR Nasopharyn COVID-19 PCR Ref Test Perform Site Last Vital Signs Temp 37.2 C 01/14/20 15:00 Pulse 68 01/14/20 15:46 Resp 21 01/14/20 15:50 BP 112/54 L 01/14/20 15:46 Pulse Ox 100 01/14/20 15:50 COVID-19 Screening Have you,or household,traveled outside [place] in last 14 days?: No Had IN PERSON contact w/suspected or confirmed C-19 person: No
[2020-01-14 16:02] LABS: Troponin I < 0.05 ng/mL (<0.06)
[2020-01-14] MEDS: VANCOMYCIN/WATER (PEG) 2 GM/400 ML BAG IVPB (16:31)
[2020-01-14 16:43] LABS: BE 9 mmol/L (-2-3); HCO3 34 mmol/L (22-26); pCO2 58 mmHg (35-45); pH 7.38 (7.35-7.45); pO2 91 mmHg (80-105); sO2 97 % (95-98); tCO2 33 mmol/L (23-27)
[2020-01-14 16:45] LABS: FIO2L 4 L; Site Right Radial
[2020-01-14] MEDS: LORazepam 2 MG/ML VIAL 0.5 MG IVP (17:50)
[2020-01-14] MEDS: methylPREDNISolone SUCC 125 MG VIAL IVP (17:51)
[2020-01-14] MEDS: Furosemide 40 MG/4 ML VIAL IVP (17:54)
[2020-01-14] MEDS: Insulin Aspart 300 UNITS/3 ML PEN SC (18:30)
[2020-01-14 22:55] LABS: Troponin I < 0.05 ng/mL (<0.06)
--- NOTE | 2020-01-14 23:03 | NUR.NOTE ---
evening meds brought into room and attempt made to give to pt but was too sleepy and meds held
[2020-01-15] VITALS (103 sets, daily range): BP systolic 89–146; BP diastolic 45–73; PULSE 67–88; RESP 1–36; TEMP 36.3–37.4; O2SAT 81–100
--- NOTE | 2020-01-15 | DI.US_ITS ---
EXAM: US EXTREMITY VENOUS BI CLINICAL HISTORY: BLE edema, r/o DVT. TECHNIQUE: Bilateral lower extremity venous ultrasound performed using grayscale, color-flow, and sp ectral Doppler analysis. COMPARISON: No exams were available for comparison FINDINGS: The bilateral common femoral, femoral and popliteal veins demonstrate normal compressibility, augment ation, and color Doppler. The posterior tibial veins are patent. The saphenofemoral junctions are unr emarkable. There is no evidence of a Morrissey's cyst. The soft tissues are unremarkable. IMPRESSION: Right: Negative for DVT Left: Negative for DVT DATA REPOSITORY:
[2020-01-15] MEDS: Insulin Aspart 300 UNITS/3 ML PEN SC ×5 (00:15→21:21)
[2020-01-15] MEDS: Albuterol/Ipratropium 3 ML UPD VIAL UPD ×4 (00:16→18:48)
[2020-01-15] MEDS: methylPREDNISolone SUCC 125 MG VIAL 80 MG IVP ×2 (01:13→09:23)
[2020-01-15] MEDS: Normal Saline Flush 10 ML SYR IVP ×6 (01:14→21:53)
[2020-01-15] MEDS: VANCOMYCIN/WATER (PEG) 1.25 GM/250 ML BAG IV ×2 (04:05→16:21)
[2020-01-15] MEDS: Levothyroxine 25 MCG TAB 37.5 MCG PO (05:47)
[2020-01-15 06:46] LABS: Abs Immature Grans 0.78 10^3/uL (0.0-0.06); HGB 8.7 g/dL (11.2-15.7); MCH 24.8 pg (27.0-33.0); MCHC 28.1 % (32.0-36.0); MCV 88.3 fL (80-95); Nucleated RBC 0 %; Platelet Count 299 10^3/uL (130-400); RBC 3.51 10^6/uL (3.93-5.22); RDW 17.3 % (11.7-14.6); RDW-SD 56.1 fL
[2020-01-15 07:11] LABS: Troponin I < 0.05 ng/mL (<0.06)
[2020-01-15 07:12] LABS: Anion Gap 3.7 mmol/L (3-11); BUN 15 mg/dL (7-18); CO2 36.3 mmol/L (21.0-32.0); CREATININE 0.76 mg/dL (0.55-1.02); Calcium 8.8 mg/dL (8.5-10.1); Chloride 101 mmol/L (98-107); Glucose 191 mg/dL (74-106); Potassium 3.5 mmol/L (3.5-5.1); Sodium 141 mmol/L (136-145)
[2020-01-15 07:23] LABS: Absolute Lymphocyte Count 1.91 10^3/uL (1.2-3.4); Absolute Monocyte Count 0.32 10^3/uL (0.1-0.8); Absolute Neutrophil Count 29.28 10^3/uL (1.2-6.7); Bands % 9; WBC 31.83 10^3/uL (4.4-10.8)
[2020-01-15 07:24] LABS: Anisocytosis 1+; Diff Comment Manual Differential; Hypochromasia 2+; Metamyelocytes % 1; Polychromasia Present
--- NOTE | 2020-01-15 08:21 | PGE_ITS ---
Date of Service Date of service: 01/15/20 Time of Service: 11:56 Assessment and Plan Assessment and plan (1) Sepsis: Status: Acute Assessment and plan: Likely multifactorial, due to PNA and cellulitis LLE, present on admission. Has GPC bacteremia. Repeat ordered; echo pending. I think we need to rule out osteomyelitis LLE - ordering XR for tomorrow. If negative, would need an MRI. Continue empiric vancomycin/ceftriaxone. Await blood culture results. No culture data available in [facility] records to help guide our therapy, but she did have cellulitis there and got better with vancomycin. (2) Acute on chronic respiratory failure with hypoxia and hypercapnia: Status: Resolved Assessment and plan: Due to PNA, acute exacerbation of COPD, suspected OHS. The patient is also a PUI for COVID-19 (test pending). The patient tolerated 1 hour of BiPAP last night, but then no longer required it. ABG showed preserved pH, so BiPAP was used primarily because of impending respiratory fatigue and not for CO2 narcosis (which the patient ended up not having). REmains stable on her 4L of O2 by VT, which is her basesline. (3) Pneumonia: Status: Acute Assessment and plan: As above (4) Cellulitis: Status: Acute Assessment and plan: As above (5) Toxic metabolic encephalopathy: Status: Resolved Assessment and plan: Resolved - as above (6) CHF (congestive heart failure): Status: Chronic Assessment and plan: Now appears euvolemic. Echo pending. Continue to monitor I/O's, daily weights. Ok to d/c cardiac monitoring. (7) Hypomagnesemia: Status: Resolved Assessment and plan: Recheck in am (8) Obesity: Status: Chronic Assessment and plan: Likely has underlying OHS. Needs a sleep study as outpatient if she has not had one. (9) DVT prophylaxis: Status: Acute Assessment and plan: On therapeutic eliquis (10) Discharge planning issues: Status: Acute Assessment and plan: Full code. Remains a PUI. Ok to transfer out of ICU. Length of antibiotics and disposition depending on whether this is bacteremia alone or +endocarditis and/or osteomyelitis. Best case scenario: 2 weeks of antibiotics from today. Worst: 6 weeks. Antibiotics may be able to be administered PO, depending on the results of blood culture. Subjective Subjective Interval history since last seen: The patient states she is doing much better today - because she cannot even remember yesterday. She denies dizziness, chest pain, shortness of breath, cough, nausea. Her LLE hurts - that is her biggest complaint today. Afebrile. Wore bipap x 1 hr. Constipated. UOP 4100 cc. Exam Narrative Exam Narrative: General: Obese, slightly tremulous female, A&Ox3, very alert, cooperative, pleasant, looks significantly better than yesterday. HEENT: EOMI, MMM Cardiovascular: RRR, no m/r/g Lungs: Coarse breath sounds B, no rales, slight rhonchi on expiration B Gastrointestinal: soft, nontender,nondistended Genitourinary: has a kebede Extremities: 1+ BLE edema with wrinkles, R>L, erythema LLE is significantly improved from yesterday; chronic venous stasis dermatitis. Objective Last Vital Signs Temp 36.5 C 01/15/20 04:05 Pulse 79 01/15/20 06:30 Resp 17 01/15/20 06:30 BP 124/63 01/15/20 06:30 Pulse Ox 89 L 01/15/20 06:30 Laboratory Results - last 24 hr 01/14/20 01/14/20 01/14/20 11:50 11:50 11:50 WBC 34.05 H* RBC 3.31 L Hgb 8.3 L Hct 28.7 L MCV 86.7 MCH 25.1 L MCHC 28.9 L RDW 17.5 H Plt Count 295 MPV 8.9 Immature Gran % See Differential Neutrophils % 94.0 Band Neutrophils % Lymphocytes % 1.0 Monocytes % 3.0 Eosinophils % 0.0 Basophils % 0.0 Metamyelocytes % 1 Myelocytes % 1 Nucleated RBC % 0 Absolute Neutrophils 32.01 H Absolute Lymphocytes 0.34 L Absolute Monocytes 1.02 H Absolute Eosinophils 0.00 Absolute Basophils 0.00 RBC Morphology See below Polychromasia Present Hypochromasia 2+ Anisocytosis 1+ PT 12.1 H INR 1.2 H ABG Sample Site ABG pH ABG pCO2 ABG pO2 ABG HCO3 ABG Total CO2 ABG O2 Saturation ABG Base Excess VBG Lactate Oxygen Liter Flow FiO2 Sodium 136 Potassium 3.9 Chloride 96 L Carbon Dioxide 32.2 H Anion Gap 7.8 BUN 18 Creatinine 0.94 Estimated GFR/1.73 m2 58.70 Glucose 177 H Calcium 8.5 Magnesium 1.6 L Total Bilirubin 0.3 AST 24 ALT 21 Alkaline Phosphatase 75 Troponin I < 0.05 NT-Pro-B Natriuret Pep Total Protein 6.7 Albumin 2.7 L Procalcitonin TSH 4.62 H Free T4 Urine Color Urine Clarity Urine pH Ur Specific [place] Urine Protein Urine Ketones Urine Blood Urine Nitrite Urine Bilirubin Urine Urobilinogen Ur Leukocyte Esterase Urine RBC Urine WBC Ur Epithelial Cells Urine Crystals Urine Bacteria Urine Casts Urine Mucus Ur Culture Indicated? Urine Glucose COVID-19 PCR Nasopharyn COVID-19 PCR Ref Test Perform Site 01/14/20 01/14/20 01/14/20 11:50 12:12 12:12 WBC RBC Hgb Hct MCV MCH MCHC RDW Plt Count MPV Immature Gran % Neutrophils % Band Neutrophils % Lymphocytes % Monocytes % Eosinophils % Basophils % Metamyelocytes % Myelocytes % Nucleated RBC % Absolute Neutrophils Absolute Lymphocytes Absolute Monocytes Absolute Eosinophils Absolute Basophils RBC Morphology Polychromasia Hypochromasia Anisocytosis PT INR ABG Sample Site ABG pH ABG pCO2 ABG pO2 ABG HCO3 ABG Total CO2 ABG O2 Saturation ABG Base Excess VBG Lactate Oxygen Liter Flow FiO2 Sodium Potassium Chloride Carbon Dioxide Anion Gap BUN Creatinine Estimated GFR/1.73 m2 Glucose Calcium Magnesium Total Bilirubin AST ALT Alkaline Phosphatase Troponin I NT-Pro-B Natriuret Pep 1645 H Total Protein Albumin Procalcitonin TSH Free T4 Urine Color Yellow Urine Clarity Clear Urine pH 8.5 H Ur Specific [place] 1.020 Urine Protein Trace H Urine Ketones Trace H Urine Blood Negative Urine Nitrite Negative Urine Bilirubin Negative Urine Urobilinogen 0.2 Ur Leukocyte Esterase Negative Urine RBC Negative Urine WBC 0-2 Ur Epithelial Cells Moderate Urine Crystals Negative Urine Bacteria Negative Urine Casts Negative Urine Mucus Trace Ur Culture Indicated? No/sq. contamination Urine Glucose Negative COVID-19 PCR Cancelled Nasopharyn COVID-19 PCR Cancelled Ref Test Perform Site Cancelled 01/14/20 01/14/20 01/14/20 12:55 12:55 12:55 WBC RBC Hgb Hct MCV MCH MCHC RDW Plt Count MPV Immature Gran % Neutrophils % Band Neutrophils % Lymphocytes % Monocytes % Eosinophils % Basophils % Metamyelocytes % Myelocytes % Nucleated RBC % Absolute Neutrophils Absolute Lymphocytes Absolute Monocytes Absolute Eosinophils Absolute Basophils RBC Morphology Polychromasia Hypochromasia Anisocytosis PT INR ABG Sample Site ABG pH ABG pCO2 ABG pO2 ABG HCO3 ABG Total CO2 ABG O2 Saturation ABG Base Excess VBG Lactate 1.9 H Oxygen Liter Flow FiO2 Sodium Potassium Chloride Carbon Dioxide Anion Gap BUN Creatinine Estimated GFR/1.73 m2 Glucose Calcium Magnesium Total Bilirubin AST ALT Alkaline Phosphatase Troponin I NT-Pro-B Natriuret Pep Total Protein Albumin Procalcitonin 1.8 TSH 4.91 H Free T4 0.74 L Urine Color Urine Clarity Urine pH Ur Specific [place] Urine Protein Urine Ketones Urine Blood Urine Nitrite Urine Bilirubin Urine Urobilinogen Ur Leukocyte Esterase Urine RBC Urine WBC Ur Epithelial Cells Urine Crystals Urine Bacteria Urine Casts Urine Mucus Ur Culture Indicated? Urine Glucose COVID-19 PCR Nasopharyn COVID-19 PCR Ref Test Perform Site 01/14/20 01/14/20 01/14/20 15:27 16:37 17:30 WBC RBC Hgb Hct MCV MCH MCHC RDW Plt Count MPV Immature Gran % Neutrophils % Band Neutrophils % Lymphocytes % Monocytes % Eosinophils % Basophils % Metamyelocytes % Myelocytes % Nucleated RBC % Absolute Neutrophils Absolute Lymphocytes Absolute Monocytes Absolute Eosinophils Absolute Basophils RBC Morphology Polychromasia Hypochromasia Anisocytosis PT INR ABG Sample Site Right radial Cancelled ABG pH 7.38 Cancelled ABG pCO2 58 H Cancelled ABG pO2 91 Cancelled ABG HCO3 34 H Cancelled ABG Total CO2 33 H Cancelled ABG O2 Saturation 97 Cancelled ABG Base Excess 9 H Cancelled VBG Lactate Oxygen Liter Flow 4 Cancelled FiO2 Cancelled Sodium Potassium Chloride Carbon Dioxide Anion Gap BUN Creatinine Estimated GFR/1.73 m2 Glucose Calcium Magnesium Total Bilirubin AST ALT Alkaline Phosphatase Troponin I < 0.05 NT-Pro-B Natriuret Pep Total Protein Albumin Procalcitonin TSH Free T4 Urine Color Urine Clarity Urine pH Ur Specific [place] Urine Protein Urine Ketones Urine Blood Urine Nitrite Urine Bilirubin Urine Urobilinogen Ur Leukocyte Esterase Urine RBC Urine WBC Ur Epithelial Cells Urine Crystals Urine Bacteria Urine Casts Urine Mucus Ur Culture Indicated? Urine Glucose COVID-19 PCR Nasopharyn COVID-19 PCR Ref Test Perform Site 01/14/20 01/15/20 01/15/20 22:20 06:20 06:20 WBC RBC Hgb Hct MCV MCH MCHC RDW Plt Count MPV Immature Gran % Neutrophils % Band Neutrophils % Lymphocytes % Monocytes % Eosinophils % Basophils % Metamyelocytes % Myelocytes % Nucleated RBC % Absolute Neutrophils Absolute Lymphocytes Absolute Monocytes Absolute Eosinophils Absolute Basophils RBC Morphology Polychromasia Hypochromasia Anisocytosis PT INR ABG Sample Site ABG pH ABG pCO2 ABG pO2 ABG HCO3 ABG Total CO2 ABG O2 Saturation ABG Base Excess VBG Lactate Oxygen Liter Flow FiO2 Sodium 141 Potassium 3.5 Chloride 101 Carbon Dioxide 36.3 H Anion Gap 3.7 BUN 15 Creatinine 0.76 Estimated GFR/1.73 m2 >= 60.00 Glucose 191 H Calcium 8.8 Magnesium 2.0 Total Bilirubin AST ALT Alkaline Phosphatase Troponin I < 0.05 < 0.05 NT-Pro-B Natriuret Pep Total Protein Albumin Procalcitonin TSH Free T4 Urine Color Urine Clarity Urine pH Ur Specific [place] Urine Protein Urine Ketones Urine Blood Urine Nitrite Urine Bilirubin Urine Urobilinogen Ur Leukocyte Esterase Urine RBC Urine WBC Ur Epithelial Cells Urine Crystals Urine Bacteria Urine Casts Urine Mucus Ur Culture Indicated? Urine Glucose COVID-19 PCR Nasopharyn COVID-19 PCR Ref Test Perform Site 01/15/20 06:20 WBC 31.83 H* RBC 3.51 L Hgb 8.7 L Hct 31.0 L MCV 88.3 MCH 24.8 L MCHC 28.1 L RDW 17.3 H Plt Count 299 MPV 9.0 Immature Gran % See Differential Neutrophils % 83.0 Band Neutrophils % 9 Lymphocytes % 6.0 Monocytes % 1.0 Eosinophils % 0.0 Basophils % 0.0 Metamyelocytes % 1 Myelocytes % Nucleated RBC % 0 Absolute Neutrophils 29.28 H Absolute Lymphocytes 1.91 Absolute Monocytes 0.32 Absolute Eosinophils 0.00 Absolute Basophils 0.00 RBC Morphology See below Polychromasia Present Hypochromasia 2+ Anisocytosis 1+ PT INR ABG Sample Site ABG pH ABG pCO2 ABG pO2 ABG HCO3 ABG Total CO2 ABG O2 Saturation ABG Base Excess VBG Lactate Oxygen Liter Flow FiO2 Sodium Potassium Chloride Carbon Dioxide Anion Gap BUN Creatinine Estimated GFR/1.73 m2 Glucose Calcium Magnesium Total Bilirubin AST ALT Alkaline Phosphatase Troponin I NT-Pro-B Natriuret Pep Total Protein Albumin Procalcitonin TSH Free T4 Urine Color Urine Clarity Urine pH Ur Specific [place] Urine Protein Urine Ketones Urine Blood Urine Nitrite Urine Bilirubin Urine Urobilinogen Ur Leukocyte Esterase Urine RBC Urine WBC Ur Epithelial Cells Urine Crystals Urine Bacteria Urine Casts Urine Mucus Ur Culture Indicated? Urine Glucose COVID-19 PCR Nasopharyn COVID-19 PCR Ref Test Perform Site Objective Narrative Objective Narrative: Venous doppler BLE's: Right: Negative for DVT Left: Negative for DVT Echo done; read pending
--- NOTE | 2020-01-15 08:23 | DI.US_ITS ---
APPROVED REPORT EXAM: Comprehensive 2D, Doppler, and color-flow Echocardiogram Patient Location: In-Patient Room/Bed: BWD[facility] Laborer: Katiana Mcpherson RDCS (AE) Indications: Respiratory failure, CHF, A Fib Other Information Technically limited study due to inability to position patient, body habitus. Conclusion This is a technically limited study. Left Ventricle : Left ventricle is mildly dilated. The left ventricular systolic function is normal. The left ventricular ejection fraction is within the normal range. Borderline concentric left ventric ular hypertrophy. LVOT peak gradient is 12 mmHg. There is normal LV segmental wall motion. The left ventricular diastolic function is normal. LVEF is 60%. Right Ventricle : The right ventricle is normal size. The right ventricular systolic function is norm al. The RVSP is 24.8mmHg. Atria : The left atrium size is normal. The right atrium size is normal. Valves: There are no hemodynamically significant valvular lesions. Great Vessels : The aortic root is normal in size. The ascending aorta is moderately dilated (4cm). A ortic arch is normal in caliber. IVC is normal in size and collapses >50% with inspiration. Wall motion Left Ventricle Left ventricle is mildly dilated. The left ventricular systolic function is normal. The left ventricu lar ejection fraction is within the normal range. Borderline concentric left ventricular hypertrophy. LVOT peak gradient is 12 mmHg. The patient was unable to perform Valsalva. There is normal LV segmen elizabeth wall motion. The left ventricular diastolic function is normal. There is no ventricular septal de fect visualized. LVEF is 60%. Right Ventricle The right ventricle is normal size. The right ventricular systolic function is normal. The RVSP is 24 .8mmHg. Atria The left atrium size is normal. The right atrium size is normal. The interatrial septum is intact wit h no evidence for an atrial septal defect. Aortic Valve Aortic valve is calcified. Mild aortic stenosis. Peak aortic valve gradient is 33.1mmHg. Highest mean aortic valve gradient is 16.7mmHg. Calculated KAT by the continuity equation is 1.74cm2. No aortic r egurgitation is present. Mitral Valve Mild mitral annular calcification. No evidence of mitral valve stenosis. Trace mitral regurgitation. Tricuspid Valve The tricuspid valve is normal in structure. There is no tricuspid valve stenosis. Mild tricuspid regu rgitation. Pulmonic Valve The pulmonary valve is normal in structure. There is no pulmonic valvular stenosis. Mild pulmonic reg urgitation. Great Vessels The aortic root is normal in size. The ascending aorta is moderately dilated (4cm). Aortic arch is no rmal in caliber. IVC is normal in size and collapses >50% with inspiration. Pericardium There is no pericardial effusion. 2D Dimensions IVSD d PLAX 1.09 cm F: 0.6-1.0 LV Vol A2C d MOD 157.4 mL LVPW d PLAX 1.10 cm F: 0.6 - 1.0 LV Vol A4C d MOD 167.8 mL LVID d PLAX 5.48 cm F: 3.8 - 5.2 LA vol/ BSA A2C s A-L 30.8 mL/m2 LVDs 3.60 cm F: 2.2 - 3.5 LA vol/ BSA A4C s A-L 26.2 mL/m2 Ao Root d 2.64 cm F: 2.7 - 3.3 LA Vol/ BSA Biplane s A-L 28.8 mL/m2 RA Area A4C 21.53 cm2 LA Area A4C s MOD 22.02 cm2 RA Vol/ BSA A4C s A-L 24.8 mL/m2 LA Area A2C s MOD 24.13 cm2 Ao Asc Diam d 4.04 cm F: 2.3 - 3.1 LV EF A4C MOD 59.5 % LV EF Teichholz 61.6 % LV EF A2C MOD 57.4 % LVEF (Villavicencio's) 57.16 % F: 54 - 74 LV EF Biplane MOD 57.2 % LV Volume 114.20 mL F: 46 - 106 SV 92.53 mL LV Volume Index 46.99 mL/m2 F: 29 - 61 SV Index 38.04 mL/m2 LV Vol Biplane MOD 161.9 mL FS 33.40 % M-Mode TAPSE 3.19 cm (M/F) >1.7 LV Diastology MV E' medial 0.098 (>0.07 m/s) E/A Ratio 0.8 LV E/e MED 15.90 (<14) MV E Vmax 1.56 (0.4-1.3 m/s) MV E' lateral 0.114 (>0.1 m/s) MV A Vmax 2.00 (0.4-1.3 m/s) LV E/e LAT 13.65 (<14) MV E/A Ratio 0.77 MV E/E' medial 15.94 MV E/E' lateral 13.66 Aortic Valve LVOT Area 2.91 cm2 AoV Area Vmax 1.74 cm2 LVOT Vmax 1.72 m/s AoV Area/ BSA (Vmax) 0.72 cm2/m2 LVOT Mean Hollis. 1.20 m/s KAT Mean Hollis. 1.86 cm2 LVOT Peak Grad 11.9 mmHg KAT Mean Hollis. Index 0.76 cm2/m2 LVOT Mean Grad 6.6 mmHg LVOT VTI 0.375 m LVOT Diam s 1.90 cm AoV Vmax 2.88 m/s Velocity Ratio 0.59 AoV Mean Hollis. 1.87 m/s AoV Peak Grad 33.1 mmHg LVOT SV 109.06 mL AoV Mean Grad 16.7 mmHg AoV VTI 0.595 m AoV Area VTI 1.83 cm2 AoV Area/ BSA (VTI) 0.75 cm/m2 Mitral Valve MV DT 180 (160-240 msec) MV PHT 52 msec MV Area PHT 4.21 cm2 MV VTI 0.411 m MV VTI Annulus 0.427 m MV Area VTI 2.75 (4.0-6.0 cm2) Pulmonary Valve PV Vmax 1.66 (0.5-1.5 m/s) RVOT Peak Gr. 5.98 mmHg PV Peak Grad 11.0 mmHg RVOT Mean Gr. 3.05 mmHg PV Mean Grad 5.8 mmHg RVOT VTI 0.224 m PV VTI 0.328 m RVOT Vmax 1.22 m/s Tricuspid Valve TR Peak Grad 21.7 mmHg TR Vmax 2.33 m/s RA Pressure 3.00 mmHg RVSP (TR) 24.8 mmHg
--- NOTE | 2020-01-15 08:48 | NUR.NOTE ---
Medical records requested from [facility]- last admission was 12/14/19 to 12/18/19. Spoke to Selin in medical records.
[2020-01-15] MEDS: Citalopram 20 MG TAB 40 MG PO (09:15)
[2020-01-15] MEDS: Amiodarone 200 MG TAB PO ×2 (09:16→19:39)
[2020-01-15] MEDS: Aspirin E.C. 81 MG TABEC PO (09:16)
[2020-01-15] MEDS: Cyanocobalamin 100 MCG TABLET PO (09:16)
[2020-01-15] MEDS: dilTIAZem CD 120 MG CAPCR 240 MG PO (09:17)
[2020-01-15] MEDS: Folic Acid 1 MG TAB PO (09:17)
[2020-01-15] MEDS: Senna TAB 1 TAB PO ×2 (09:17→19:40)
[2020-01-15] MEDS: Polyethylene Glycol 3350 17 GM PACKET PO (09:17)
[2020-01-15] MEDS: Metoprolol 25 MG TAB PO ×2 (09:17→19:39)
[2020-01-15] MEDS: Furosemide 20 MG TAB PO (09:17)
[2020-01-15] MEDS: Omeprazole 20 MG CAPCR 40 MG PO (09:18)
[2020-01-15] MEDS: Apixaban 5 MG TAB PO ×2 (09:18→19:39)
[2020-01-15] MEDS: Tolterodine 2 MG CAPCR 4 MG PO (09:18)
[2020-01-15] MEDS: Docusate Sodium 100 MG CAP PO ×2 (09:18→19:39)
[2020-01-15] MEDS: Budesonide/Formoterol 160/4.5 6 GM 60 PUFF INH IH ×2 (10:05→19:42)
[2020-01-15] MEDS: Tiotropium Bromide-Respimat 10 PUFF INH IH (10:05)
[2020-01-15] MEDS: cefTRIAXone 2 GM/50 ML BAG IVPB (13:49)
[2020-01-15] MEDS: Nystatin POWDER 60 GM JAR TP ×2 (13:50→19:40)
--- NOTE | 2020-01-15 14:48 | PDOC.CMIN ---
- If Service Date Differs Date of service: 01/15/20 Time of Service: 14:48 Care Management Initial Assess REASON FOR HOSPITALIZATION:: Pneumonia PAST MEDICAL HISTORY/PAST SURGICAL HISTORY:: CHF, COPD, DM, GERD, obsesity, generalized weakness, arthritis, afib. Surgical Hx: hand surgery, hysterectomy, carpal tunnel, appendectomy PREVIOUS FUNCTIONAL STATUS/SOCIAL/FAMILY SUPPORTS:: Marlen is currently at the [facility] for Rehab as a resident she was in an assisted living prior to her admission at the [facility]. Marlen has a daughter and per the [facility] has been notified of admission. CM contacted the [facility] and reviewed her care. CURRENT FUNCTIONAL STATUS:: Marlen is currently in the ICU she is being ruled out for COVID, CM will meet with patient when she is medically clear. CM did contact the [facility] and reviewed her plan, and needs, CM also reviewed plan with MD, and primary nurse. ADVANCE DIRECTIVES:: None on file - CM will request copy from the [facility] Has patient been provided with info about the portal/API?: No Did the patient sign up for the portal?: No CODE STATUS:: Full Code INSURANCE COVERAGE / FINANCIAL ISSUES:: Medicare and Medicaid CURRENT HOME/COMMUNITY SERVICES/EQUIPMENT:: Current services through the [facility] she is on oxygen 2l there and uses a walker and wheelchair for mobility. PRIMARY CARE PHYSICIAN:: at [facility] rehab POTENTIAL DISCHARGE NEEDS:: Return to the [facility], she will need a repeat COVID on Sunday PATIENT/FAMILY EDUCATION NEEDS:: Discharge education, limitations and follow up plan of care ANTICIPATED BARRIERS TO DISCHARGE:: Pending blood cultures and course of abx to be determined. TRANSPORTATION:: Via ambulance vs RCT return to the [facility] PLAN:: Marlen is receiving IV abx, she will return to the [facility] when medically ready. CM contacted the [facility] provided update. CM will continue to assess for discharge needs. She will return to the [facility] as level 1.
[2020-01-15 14:49] LABS: SARS-CoV-2 RNA Not Detected (NotDetected); SARS-CoV-2 RNA Source Nasal/Nares
--- NOTE | 2020-01-15 15:20 | PHA.REVIEW ---
Pharmacy Admission Review - Admission Clinical Review (Last Updated 01/15/20 @ 11:20 by Tawnya Mayfield MD) Discharge planning issues (Acute) DVT prophylaxis (Acute) Sepsis (Acute) Altered mental status (Acute) Pneumonia (Acute) Cellulitis (Acute) bee venom protein (honey bee) Allergy (Unknown, Unverified 01/14/20 11:44) Penicillins Allergy (Unknown, Unverified 01/14/20 11:43) strawberry Allergy (Unknown, Unverified 01/14/20 11:43) Height 5 ft 6 in Weight 139.2 kg SEPSIS, Pneumonia, cellulitis, toxic metabolic encephalopathy - Comments Comments/Follow Ups: Check on Micro results, I/O and weights daily. Follow Procalcitonin, CHF, QTC. Will r/o Osteomyelitis of LLE on Sunday, possible MRI, will transfer to M/S. May need extended duration of Antibiotics because treating Bacteremia, Pneumonia and possible Osteomyelitis, therefore could be 2-6 weeks treatment. Is a resident of The [facility]. Follow WBC, but patient is also on IV Steroids - Renal Dosing Renal Dosing: BUN 15 mg/dL (7-18) 01/15/20 06:20 Creatinine 0.76 mg/dL (0.55-1.02) 01/15/20 06:20 Medications needing adjustments: Reviewed (CrCl~60ml/min) - Anticoagulation Anticoagulation: Hgb 8.7 g/dL (11.2-15.7) L 01/15/20 06:20 Hct 31.0 % (36.0-46.0) L 01/15/20 06:20 Plt Count 299 10^3/uL (130-400) 01/15/20 06:20 INR 1.2 (0.9-1.1) H 01/14/20 11:50 Creatinine 0.76 mg/dL (0.55-1.02) 01/15/20 06:20 DVT Prohphylaxis: Reviewed Therapeutic Anticoagulation: Reviewed Medications: Aspirin (Apixiban for A-fib) - Relevant Labs Sodium 141 mmol/L (136-145) 01/15/20 06:20 Potassium 3.5 mmol/L (3.5-5.1) 01/15/20 06:20 Chloride 101 mmol/L (98-107) 01/15/20 06:20 Magnesium 2.0 mg/dL (1.8-2.4) 01/15/20 06:20 Electrolytes, C-Reactive P, ESR: Reviewed (Procalcitonin 1.8, TSH high-no dose adjustment at this time, WBC 31.83) - DM Control DM Control: Glucose 191 mg/dL (74-106) H 01/15/20 06:20 Finger Stick Blood Glucose 212 Finger Stick Blood Glucose 212 Finger Stick Blood Glucose 191 Finger Stick Blood Glucose 191 Insulin Dosing: Reviewed (Novolog AC&HS) - Heart Failure/ME Heart Failure/ME: Troponin I < 0.05 ng/mL (<0.06) 01/15/20 06:20 NT-Pro-B Natriuret Pep 1645 pg/mL (<300) H 01/14/20 11:50 EF%, FLORI's, B-Blockers, Diuretics: Reviewed (Amiodarone, Diltiazem, Lasix) - BP Control BP Control: Blood Pressure 102/45 Blood Pressure 111/58 Blood Pressure 117/56 Blood Pressure 117/61 Blood Pressure 120/68 Blood Pressure 102/51 Blood Pressure 89/54 Blood Pressure 117/55 Blood Pressure 104/48 Blood Pressure 122/59 Blood Pressure 131/61 Blood Pressure 124/63 Blood Pressure 118/54 Blood Pressure 98/46 Blood Pressure 105/48 Blood Pressure 101/46 Blood Pressure 123/58 Blood Pressure 122/55 If elevated: Reviewed - Qtc Review If Elevated: Intervened (QTC 543 on EKG in ER (meds: Amiodarone, Celexa, Tramadol), notified MD, Patient on continuous monitor and QTC is low today) - IV to PO Switch IV Medications: Reviewed (IV Steroids, Antibiotics) - Home Meds Home Med List reviewed: Reviewed (Metformin not ordered-has Novolog scale) Antibiotic Activity - Pharmacy Antibiotic Review Pharmacy Antibiotic Activity: C/S review (Gram positive cocci bacteremia-Empiric Vanco/Rocephin started 01/14/20) - Antibiotic Information Antibiotic Review Info: Gram positive cocci bacteremia-Empiric Vanco/Rocephin started 01/14/20, in addition to cellulitis of LLE and Pneumonia
[2020-01-15] MEDS: methylPREDNISolone SUCC 40 MG VIAL IVP (16:22)
[2020-01-16] VITALS (15 sets, daily range): BP systolic 114–130; BP diastolic 41–66; PULSE 70–83; RESP 1–22; TEMP 36.4–37.1; O2SAT 95–99
[2020-01-16] MEDS: methylPREDNISolone SUCC 40 MG VIAL IVP ×3 (00:37→16:06)
[2020-01-16] MEDS: Albuterol/Ipratropium 3 ML UPD VIAL UPD ×4 (00:37→17:42)
[2020-01-16] MEDS: Normal Saline Flush 10 ML SYR IVP ×3 (00:37→16:29)
[2020-01-16 04:20] LABS: Abs Immature Grans 0.48 10^3/uL (0.0-0.06); Basophils % 0.1; HGB 7.7 g/dL (11.2-15.7); MCH 24.9 pg (27.0-33.0); MCHC 28.5 % (32.0-36.0); MCV 87.4 fL (80-95); MPV 9.4 fL (8.0-11.0); Nucleated RBC 0 %; Platelet Count 304 10^3/uL (130-400); RBC 3.09 10^6/uL (3.93-5.22); RDW 17.3 % (11.7-14.6); RDW-SD 55.5 fL
[2020-01-16 04:31] LABS: Vancomycin, Trough 10.6 ug/mL (10.0-20.0)
[2020-01-16 04:32] LABS: Iron 7 ug/dL (50-170); Total Iron Binding Capacity 254 ug/dL (250-450); Transferrin Sat 3 % (15-50)
[2020-01-16 04:38] LABS: Hemoglobin A1C 5.8 % (<5.7)
[2020-01-16 04:45] LABS: Absolute Basophil Count 0.03 10^3/uL (0.0-0.2)
[2020-01-16 04:46] LABS: WBC 29.49 10^3/uL (4.4-10.8)
[2020-01-16 04:52] LABS: Absolute Lymphocyte Count 0.59 10^3/uL (1.2-3.4); Absolute Monocyte Count 0.29 10^3/uL (0.1-0.8); Absolute Neutrophil Count 28.31 10^3/uL (1.2-6.7); Anisocytosis 2+; Diff Comment Manual Differential; Metamyelocytes % 1
[2020-01-16 04:53] LABS: Hypochromasia 2+; Polychromasia Present
[2020-01-16 05:02] LABS: Anion Gap 1.3 mmol/L (3-11); BUN 17 mg/dL (7-18); CO2 36.7 mmol/L (21.0-32.0); CREATININE 0.83 mg/dL (0.55-1.02); Calcium 8.6 mg/dL (8.5-10.1); Chloride 100 mmol/L (98-107); Ferritin 90 ng/mL (8-252); Glucose 254 mg/dL (74-106); Potassium 3.4 mmol/L (3.5-5.1); Sodium 138 mmol/L (136-145)
[2020-01-16 05:14] LABS: Folate > 20.0 ng/mL (8.6-20.0); Vitamin B12 > 2000 pg/mL (193-986)
[2020-01-16] MEDS: Levothyroxine 25 MCG TAB 37.5 MCG PO (05:28)
[2020-01-16] MEDS: Water,Injection,Sterile 10 ML VIAL (05:55)
[2020-01-16] MEDS: VANCOMYCIN/WATER (PEG) 1.75 GM/350 ML BAG IV (05:55)
[2020-01-16 05:58] LABS: C-Reactive Protein 13.77 mg/dL (0.0-0.3)
--- NOTE | 2020-01-16 06:45 | DI.RAD_ITS ---
EXAM: XR TIB/FIB LT CLINICAL HISTORY: suspected osteomyelitis. TECHNIQUE: 2D digital imaging was performed COMPARISON: No exams were available for comparison FINDINGS: BONES: No acute fracture is present. No bony destructive lesion is seen. Mild degenerative changes ar e seen in the left knee. The ankle is unremarkable. No radiographic evidence to suggest osteomyelit is. SOFT TISSUE: Edema seen in the soft tissues of the lower leg. IMPRESSION: No radiographic evidence to suggest osteomyelitis. DATA REPOSITORY: RADIATION DOSE DELIVERED:
[2020-01-16] MEDS: Docusate Sodium 100 MG CAP PO ×2 (07:59→20:59)
[2020-01-16] MEDS: Apixaban 5 MG TAB PO ×2 (07:59→20:59)
[2020-01-16] MEDS: Tolterodine 2 MG CAPCR 4 MG PO (07:59)
[2020-01-16] MEDS: dilTIAZem CD 120 MG CAPCR 240 MG PO (08:00)
[2020-01-16] MEDS: Citalopram 20 MG TAB 40 MG PO (08:00)
[2020-01-16] MEDS: Senna TAB 1 TAB PO ×2 (08:00→20:58)
[2020-01-16] MEDS: Folic Acid 1 MG TAB PO (08:00)
[2020-01-16] MEDS: Metoprolol 25 MG TAB PO ×2 (08:00→20:58)
[2020-01-16] MEDS: Furosemide 20 MG TAB PO ×2 (08:00→16:05)
[2020-01-16] MEDS: Budesonide/Formoterol 160/4.5 6 GM 60 PUFF INH IH ×2 (08:00→21:00)
[2020-01-16] MEDS: Omeprazole 20 MG CAPCR 40 MG PO (08:00)
[2020-01-16] MEDS: Cyanocobalamin 100 MCG TABLET PO (08:00)
[2020-01-16] MEDS: Aspirin E.C. 81 MG TABEC PO (08:00)
[2020-01-16] MEDS: Amiodarone 200 MG TAB PO ×2 (08:00→20:59)
[2020-01-16] MEDS: Tiotropium Bromide-Respimat 10 PUFF INH IH (08:01)
[2020-01-16] MEDS: Insulin Aspart 300 UNITS/3 ML PEN SC ×4 (08:04→22:45)
[2020-01-16] MEDS: Nystatin POWDER 60 GM JAR TP ×3 (08:15→21:01)
[2020-01-16] MEDS: Potassium Chloride 20 MEQ TABCR 40 MEQ PO (08:16)
--- NOTE | 2020-01-16 09:31 | PDOC.CMPRO ---
- If Service Date Differs Date of service: 01/16/20 Time of Service: 09:31 Care Management Progress Note S/O: Marlen was sitting up in her chair when CM met with her. She reported that she was doing well, and she was being cared for well since she has been at [facility]. She was moved from the ICU to Med/Surge today. She was working with RT while CM was in the room. CM will continue to follow. A: Marlen is a 69 year old female admitted to [facility] on 01/14/20 with PNA, cellulitis. P: Marlen is receiving IV abx, she will return to the [facility] when medically ready. CM contacted the [facility] provided update. CM will continue to assess for discharge needs. She will return to the [facility] as level 1. She will likely transport via ambulance.
--- NOTE | 2020-01-16 09:44 | DM INPTCON_ITS ---
Date of service: 01/16/20 Time of Service: 09:50 Diabetes Inpatient Consult DESCRIPTION/ASSESSMENT: 69 year old female admitted from The [facility] into ICU for respiratory failure, sepsis, PNA, cellulitis with CHF, COPD, morbid obesity and NIDDM. Following Diabetic diet with excellent intake (>75%) and meeting nutrient and fluid needs. Blood sugars elevated (>250 mg/dl) since admit, correct with sliding scale insulin. A1C wnl at 5.8% (01/16/20). Nutrition education not warranted at this time as will return to SNF and have diabetes management taken care of by nursing. Dm Meds used prior to admit was 1000 mg metformin BID, regime appears to be providing tight glucose control. INTERVENTION: Diabetic Diet Sliding scale insulin PLAN: continue above. Will monitor po intake, labs and weight. Time Spent in Nutritional Counseling and Treatment: 0
--- NOTE | 2020-01-16 14:39 | PGE_ITS ---
Date of Service Date of service: 01/16/20 Time of Service: 14:39 Assessment and Plan Assessment and plan (1) Sepsis: Status: Acute Assessment and plan: Likely multifactorial, due to PNA and cellulitis LLE, present on admission. Original blood cultures with Group A strep. Repeat negative to date. Echo without valvular pathology. LLE XR without osteomyelitis. MRI ordered. D/c vancomycin. Continue ceftriaxone. Await MRI. Continue to monitor CRP, procalcitonin. (2) Streptococcal bacteremia: Status: Acute Assessment and plan: As above (3) Acute on chronic respiratory failure with hypoxia and hypercapnia: Status: Resolved Assessment and plan: Due to PNA, acute exacerbation of COPD, suspected OHS. COVID-19 ruled out by PCR. Back to her 4L of O2 by NC. Will need a sleep study as outpatient. (4) Pneumonia: Status: Acute Assessment and plan: As above (5) Cellulitis: Status: Acute Assessment and plan: As above (6) Toxic metabolic encephalopathy: Status: Resolved Assessment and plan: Resolved - as above (7) CHF (congestive heart failure): Status: Acute Assessment and plan: Acute on chronic diastolic CHF. Now appears e uvolemic. EF 60 % on echo, does have mild-moderate pulmonary hypertension with RVSP of 24.8 mmHg. Continue to monitor I/O's, daily weights. I increased her lasix to BID for now as she does seem slightly more fluid overloaded today. (8) Hypomagnesemia: Status: Resolved Assessment and plan: Recheck in am (9) Obesity: Status: Chronic Assessment and plan: Likely has underlying OHS. Needs a sleep study as outpatient if she has not had one. (10) DVT prophylaxis: Status: Acute Assessment and plan: On therapeutic eliquis (11) Discharge planning issues: Status: Acute Assessment and plan: Full code. COVID-19 ruled out. Ok to transfer out of ICU. Length of antibiotics and disposition depend on whether MRI is positive for osteomyelitis. If negative, will need 14 days of antibiotics from 01/15/2020 - choice would depend on ID recommendations. Subjective Subjective Interval history since last seen: Ms King feels overall better, but her legs hurts more today. Her calf is now weeping yellowish secretions. She denies dizziness, chest pain, states her breathing is 100% back to normal, denies n/v. Exam Narrative Exam Narrative: General: Obese, slightly tremulous female, A&Ox3, sitting up in a chair, looks even better than yesterday HEENT: EOMI, MMM Cardiovascular: RRR, no m/r/g Lungs: slightly coarse breath sounds B, better than yesterday Gastrointestinal: soft, nontender,nondistended Genitourinary: has a kebede Extremities: 2+ BLE edema with wrinkles, R>L, erythema LLE is significantly improved from yesterday; a portion of left lower leg/ankle is dressed - c/d/i; chronic venous stasis dermatitis. Objective Last Vital Signs Temp 36.4 C L 01/16/20 11:10 Pulse 77 01/16/20 13:27 Resp 18 01/16/20 13:27 BP 128/64 01/16/20 11:10 Pulse Ox 99 01/16/20 13:27 Laboratory Results - last 24 hr 01/14/20 01/16/20 01/16/20 12:12 04:00 04:00 WBC RBC Hgb Hct MCV MCH MCHC RDW Plt Count MPV Immature Gran % Neutrophils % Lymphocytes % Monocytes % Eosinophils % Basophils % Metamyelocytes % Nucleated RBC % Absolute Neutrophils Absolute Lymphocytes Absolute Monocytes Absolute Eosinophils Absolute Basophils RBC Morphology Polychromasia Hypochromasia Anisocytosis Sodium 138 Potassium 3.4 L Chloride 100 Carbon Dioxide 36.7 H Anion Gap 1.3 L BUN 17 Creatinine 0.83 Estimated GFR/1.73 m2 >= 60.00 Glucose 254 H Hemoglobin A1c Calcium 8.6 Magnesium 2.0 Iron 7 L TIBC 254 Transferrin % Sat 3 L Ferritin 90 C-Reactive Protein 13.77 H Vitamin B12 > 2000 H Folate > 20.0 H Vancomycin Trough SARS-CoV-2 Source Nasal/nares SARS-CoV-2 (PCR) Not detected 01/16/20 01/16/20 01/16/20 04:00 04:00 04:00 WBC 29.49 H* RBC 3.09 L Hgb 7.7 L Hct 27.0 L MCV 87.4 MCH 24.9 L MCHC 28.5 L RDW 17.3 H Plt Count 304 MPV 9.4 Immature Gran % See Differential Neutrophils % 96.0 Lymphocytes % 2.0 Monocytes % 1.0 Eosinophils % 0.0 Basophils % 0.1 Metamyelocytes % 1 Nucleated RBC % 0 Absolute Neutrophils 28.31 H Absolute Lymphocytes 0.59 L Absolute Monocytes 0.29 Absolute Eosinophils 0.00 Absolute Basophils 0.03 RBC Morphology See below Polychromasia Present Hypochromasia 2+ Anisocytosis 2+ Sodium Potassium Chloride Carbon Dioxide Anion Gap BUN Creatinine Estimated GFR/1.73 m2 Glucose Hemoglobin A1c 5.8 H Calcium Magnesium Iron TIBC Transferrin % Sat Ferritin C-Reactive Protein Vitamin B12 Folate Vancomycin Trough 10.6 SARS-CoV-2 Source SARS-CoV-2 (PCR) XR L tib/fib: No radiographic evidence to suggest osteomyelitis.
[2020-01-16] MEDS: cefTRIAXone 2 GM/50 ML BAG IVPB (14:51)
[2020-01-16] MEDS: Insulin Glargine 300 UNITS/3 ML PEN 10 UNITS SC (20:59)
[2020-01-17] VITALS (8 sets, daily range): BP systolic 111–146; BP diastolic 56–71; PULSE 67–80; RESP 2–20; TEMP 36–36.8; O2SAT 92–97
[2020-01-17] MEDS: methylPREDNISolone SUCC 40 MG VIAL IVP ×2 (00:11→08:39)
[2020-01-17] MEDS: Albuterol/Ipratropium 3 ML UPD VIAL UPD ×4 (00:11→18:50)
[2020-01-17] MEDS: Normal Saline Flush 10 ML SYR IVP ×3 (00:11→17:16)
[2020-01-17] MEDS: Levothyroxine 25 MCG TAB 37.5 MCG PO (06:17)
[2020-01-17 07:37] LABS: Abs Immature Grans 0.37 10^3/uL (0.0-0.06); Basophils % 0.1; HCT 26.7 % (36.0-46.0); HGB 7.6 g/dL (11.2-15.7); Lymphocytes % 6.2; MCHC 28.5 % (32.0-36.0); MCV 87.8 fL (80-95); MPV 9.4 fL (8.0-11.0); Monocytes % 1.7; Nucleated RBC 0 %; Platelet Count 325 10^3/uL (130-400); RBC 3.04 10^6/uL (3.93-5.22); RDW 17.3 % (11.7-14.6); RDW-SD 56.4 fL; WBC 18.44 10^3/uL (4.4-10.8)
[2020-01-17 07:40] LABS: Absolute Basophil Count 0.02 10^3/uL (0.0-0.2); Absolute Lymphocyte Count 1.14 10^3/uL (1.2-3.4); Absolute Monocyte Count 0.31 10^3/uL (0.1-0.8)
[2020-01-17 07:49] LABS: Anion Gap 0.7 mmol/L (3-11); BUN 17 mg/dL (7-18); CO2 38.3 mmol/L (21.0-32.0); CREATININE 0.74 mg/dL (0.55-1.02); Calcium 8.8 mg/dL (8.5-10.1); Chloride 98 mmol/L (98-107); Glucose 316 mg/dL (74-106); Magnesium 1.8 mg/dL (1.8-2.4); Potassium 3.6 mmol/L (3.5-5.1); Sodium 137 mmol/L (136-145)
[2020-01-17 08:10] LABS: Procalcitonin 0.4 ng/mL
[2020-01-17] MEDS: Polyethylene Glycol 3350 17 GM PACKET PO (08:35)
[2020-01-17] MEDS: Acetaminophen 325 MG TAB 650 MG PO (08:35)
[2020-01-17] MEDS: Omeprazole 20 MG CAPCR 40 MG PO (08:36)
[2020-01-17] MEDS: Docusate Sodium 100 MG CAP PO ×2 (08:37→21:01)
[2020-01-17] MEDS: Senna TAB 1 TAB PO ×2 (08:37→21:01)
[2020-01-17] MEDS: Tolterodine 2 MG CAPCR 4 MG PO (08:37)
[2020-01-17] MEDS: Furosemide 20 MG TAB PO (08:37)
[2020-01-17] MEDS: Cyanocobalamin 100 MCG TABLET PO (08:37)
[2020-01-17] MEDS: Amiodarone 200 MG TAB PO ×2 (08:37→21:01)
[2020-01-17] MEDS: dilTIAZem CD 120 MG CAPCR 240 MG PO (08:37)
[2020-01-17] MEDS: Metoprolol 25 MG TAB PO ×2 (08:38→21:01)
[2020-01-17] MEDS: Aspirin E.C. 81 MG TABEC PO (08:38)
[2020-01-17] MEDS: Citalopram 20 MG TAB 40 MG PO (08:38)
[2020-01-17] MEDS: Folic Acid 1 MG TAB PO (08:38)
[2020-01-17] MEDS: Apixaban 5 MG TAB PO ×2 (08:38→21:01)
[2020-01-17] MEDS: Insulin Aspart 300 UNITS/3 ML PEN SC ×5 (08:38→21:03)
[2020-01-17] MEDS: Nystatin POWDER 60 GM JAR TP ×3 (08:39→21:02)
[2020-01-17] MEDS: Budesonide/Formoterol 160/4.5 6 GM 60 PUFF INH IH ×2 (09:24→21:02)
--- NOTE | 2020-01-17 10:39 | PDOC.CMPRO ---
Care Management Progress Note S/O: Marlen remains acute; awaiting medical clearance to return to [facility]. CM will continue to follow. A: Marlen is a 69 year old female admitted to [facility] on 01/14/20 with PNA, cellulitis. P: Marlen is receiving IV abx, she will return to the [facility] when medically ready. CM contacted the [facility] provided update. CM will continue to assess for discharge needs. She will return to the [facility] as level 1. She will likely transport via ambulance.
[2020-01-17] MEDS: traMADol 50 MG TAB PO (12:31)
[2020-01-17] MEDS: cefTRIAXone 2 GM/50 ML BAG IVPB (14:26)
--- NOTE | 2020-01-17 16:33 | PGE_ITS ---
Date of Service Date of service: 01/17/20 Time of Service: 16:33 Assessment and Plan Assessment and plan (1) Sepsis: Status: Acute Assessment and plan: While this may be multifactorial due to underlying pneumonia I think the primary causes secondary to her left leg cellulitis which is led to a group a streptococcal bacteremia. I have added clindamycin to her Rocephin regimen. We will continue to monitor her inflammatory markers. Her sepsis seems to have resolved at this point. She is no longer hypoxemic and she is alert and oriented. Her white count has come down to 18,000. Her procalcitonin remains elevated at 0.4 but is down from the admission level 1.8. Repeat blood cultures taken from January 15, 2020 shows no growth at 48 hours. Initial blood culture from January 14, 2020 had 1 out of 2 cultures positive for group A streptococcus. Patient will require at least 2 weeks of parenteral antibiotics targeted towards group A strep. (2) Streptococcal bacteremia: Status: Acute Assessment and plan: As above (3) Acute on chronic respiratory failure with hypoxia and hypercapnia: Status: Resolved Assessment and plan: Due to PNA, acute exacerbation of COPD, suspected OHS. COVID-19 ruled out by PCR. Back to her 4L of O2 by NC. Will need a sleep study as outpatient. (4) Pneumonia: Status: Acute Assessment and plan: As above (5) Cellulitis: Status: Acute Assessment and plan: As above (6) Toxic metabolic encephalopathy: Status: Resolved Assessment and plan: Resolved - as above (7) CHF (congestive heart failure): Status: Acute Assessment and plan: Acute on chronic diastolic CHF. Now appears euvolemic. EF 60 % on echo, does have mild-moderate pulmonary hypertension with RVSP of 24.8 mmHg. Continue to monitor I/O's, daily weights. I have changed her oral Lasix to IV Lasix 20 mg twice a day. Will monitor her daily weight and intake and output. Will check a BNP in the morning. (8) Hypomagnesemia: Status: Resolved Assessment and plan: Recheck in am (9) Obesity: Status: Chronic Assessment and plan: Likely has underlying OHS. Needs a sleep study as outpatient if she has not had one. (10) DVT prophylaxis: Status: Acute Assessment and plan: On therapeutic eliquis (11) Discharge planning issues: Status: Acute Assessment and plan: Full code. COVID-19 ruled out. Ok to transfer out of ICU. Length of antibiotics and disposition depend on whether MRI is positive for osteomyelitis. If negative, will need 14 days of antibiotics from 01/15/2020 - choice would depend on ID recommendations. Subjective Subjective Interval history since last seen: Patient is afebrile. She is responding to ceftriaxone 2 g IV daily. She has group a strep bacteremia probably due to cellulitis of her left leg. I am adding clindamycin to her regimen to reduce the risk of developing resistance. Per [place] antimicrobial guidelines group A streptococci are rarely resistant to clindamycin. Her diabetes is getting out of control her glucoses in the mid 300s probably exacerbated both by her infection as well as the high-dose IV corticosteroids she has been receiving. I am going to discontinue her methylprednisolone in favor of prednisone. Presumably she was put on the steroids for COPD exacerbation. Patient had presented with acute on chronic respiratory failure with both hypoxemic and hypercapnic respiratory failure. She was treated with BiPAP as well as nebulized aerosol treatments and steroids. We did discontinue the methylprednisolone and put her on prednisone 40 mg daily. As for her CHF patient has gained over 6-1/2 kg since yesterday going up from 139.7 kg to today's weight of 146.4 kg. I will put her on some IV Lasix. Exam Narrative Exam Narrative: Morbidly obese female sitting up in her chair in no acute distress. She is alert and oriented person place time circumstance. Lungs reveal bibasilar rales. Heart is regular Abdomen is obese soft and nontender. Normal active bowel sounds. Left leg is erythematous and tender. She has chronic venous stasis pebbly skin changes. Right leg has a shallow pressure ulcer over the posterior calf for which wound care nurses made some dressing changes. Objective Last Vital Signs Temp 36.8 C 01/17/20 15:25 Pulse 67 01/17/20 15:25 Resp 19 01/17/20 15:25 BP 123/69 01/17/20 15:25 Pulse Ox 96 01/17/20 15:25 Laboratory Results - last 24 hr 01/17/20 01/17/20 01/17/20 07:08 07:08 07:08 WBC 18.44 H D RBC 3.04 L Hgb 7.6 L Hct 26.7 L MCV 87.8 MCH 25.0 L MCHC 28.5 L RDW 17.3 H Plt Count 325 MPV 9.4 Immature Gran % 2.0 Neutrophils % 90.0 Lymphocytes % 6.2 Monocytes % 1.7 Eosinophils % 0.0 Basophils % 0.1 Nucleated RBC % 0 Absolute Neutrophils 16.60 H Absolute Lymphocytes 1.14 L Absolute Monocytes 0.31 Absolute Eosinophils 0.00 Absolute Basophils 0.02 Sodium 137 Potassium 3.6 Chloride 98 Carbon Dioxide 38.3 H Anion Gap 0.7 L BUN 17 Creatinine 0.74 Estimated GFR/1.73 m2 >= 60.00 Glucose 316 H Calcium 8.8 Magnesium 1.8 Procalcitonin 0.4
[2020-01-17] MEDS: Furosemide 20 MG/2 ML VIAL IVP (17:16)
--- NOTE | 2020-01-17 18:46 | WOUNDCONS_ITS ---
- If Service Date Differs Date of service: 01/17/20 Time of Service: 17:06 Wound Initial Evaluation Narrative: 01/17/20- Pt seen for l posterior calf wound. Pt states she has had a problem with that leg for about a year. Pt stated she had an open area on the left posterior calf for about six months. Wound on posterior calf measures 6 cm x 1.3 cm x 0.1 cm. The wound bed is approx 40 percent firmly adherent slough on posterior end. Other 60 percent of wound is red tissue. Skin around periphery of wound is pink, no induration noted, slight increase in warmth on left calf ve rsus right. MD in to see wound at time of this assessment. Second wound is a blister on left great toe. Patient states has been there for a while. Edges slightly pink/ purple. No drainage noted. - Wound Left Posterior Calf Wound Type: Full Thickness Wound General Appearance: Unapproximated Percent of Wound Bed Granulated/Red: 60 Percent of Wound Bed Slough/Yellow: 40 Wound Length: 6 cm Wound Width: 1.3 cm Wound Depth: 0.1 cm Wound Drainage Amount: Minimal Wound Drainage Odor: None/Absent Wound Drainage Description: Serous Wound Topical Solution/Irrigant: Saline Irrigant Wound Debridement Method: Mechanical Wound Debridement Result: Healthy Tissue Revealed Wound Debridement Amount of Tissue Removed: Minimal Left Great toe Wound Type: Partial Thickness - Circulation, Sensation, Motion Edema Degree: 3+ Peripheral Pulse Strength: Normal Capillary Refill: Less than 3 seconds Sensation Description: Pain Skin Temperature: Warm Skin Color: Normal - ROCK Comment:: pt unable to tolerate ROCK - Pain Pain Level: 4 (premedicated with tramadol) Left posterior calf cleaned with NS and debrisoft, revealing more of a red wound base. Attempted ABIs with pt permission, but pt asked to stop d/t pain before result obtained. Pt expressed pain level increased during debridement, however pt was able to tolerate approximately 5 minutes of cleaning with debrisoft. Left great toe blister cleaned with ns, pat dry, dressing applied. Adalberto wraps applied with light tension to secure dressing on left. - Treatment/Dressing Change Topicals/Ointments: None Dressing Types: Other - Recomendation Recomendation:: Left posterior calf- Apply polymem to left posterior calf, wrap with cling wrap and adalberto wrap to secure. Change every other day and PRN. Left great toe- Cleanse with ns, pat dry, apply telfa, wrap with cling to secure. Change daily and PRN. Physcian/Nurse Practioner Notified: Yes (Dr. Willett)
[2020-01-17] MEDS: CLINDAMYCIN 900 MG/50 ML BAG 50 MG IVPB (21:01)
[2020-01-17] MEDS: Potassium Chloride Liquid 20 MEQ PKT PO (21:01)
[2020-01-17] MEDS: Insulin Glargine 300 UNITS/3 ML PEN 20 UNITS SC (21:03)
[2020-01-18] MEDS: Levothyroxine 25 MCG TAB 37.5 MCG PO (05:34)
[2020-01-18] MEDS: traMADol 50 MG TAB PO ×2 (05:35→15:46)
[2020-01-18] MEDS: Albuterol/Ipratropium 3 ML UPD VIAL UPD ×4 (05:45→18:06)
[2020-01-18 07:45] LABS: Absolute Basophil Count 0.03 10^3/uL (0.0-0.2); Absolute Neutrophil Count 12.51 10^3/uL (1.2-6.7); Basophils % 0.2; HCT 28.7 % (36.0-46.0); HGB 8.3 g/dL (11.2-15.7); Immature Grans % 3.1; Lymphocytes % 13.6; MCH 24.8 pg (27.0-33.0); MCHC 28.9 % (32.0-36.0); MCV 85.7 fL (80-95); MPV 9.5 fL (8.0-11.0); Monocytes % 5.9; Neutrophils % 77.2; Nucleated RBC 0 %; Platelet Count 353 10^3/uL (130-400); RBC 3.35 10^6/uL (3.93-5.22); RDW 17.2 % (11.7-14.6); RDW-SD 54.4 fL
[2020-01-18 07:53] LABS: Absolute Monocyte Count 0.96 10^3/uL (0.1-0.8)
[2020-01-18] MEDS: Cyanocobalamin 100 MCG TABLET PO (07:55)
[2020-01-18] MEDS: Amiodarone 200 MG TAB PO ×2 (07:55→19:09)
[2020-01-18] MEDS: Tolterodine 2 MG CAPCR 4 MG PO (07:55)
[2020-01-18] MEDS: Omeprazole 20 MG CAPCR 40 MG PO (07:55)
[2020-01-18] MEDS: Folic Acid 1 MG TAB PO (07:56)
[2020-01-18] MEDS: Apixaban 5 MG TAB PO ×2 (07:56→19:09)
[2020-01-18] MEDS: Citalopram 20 MG TAB 40 MG PO (07:56)
[2020-01-18] MEDS: Aspirin E.C. 81 MG TABEC PO (07:56)
[2020-01-18] MEDS: Metoprolol 25 MG TAB PO ×2 (07:56→19:09)
[2020-01-18] MEDS: Senna TAB 1 TAB PO ×2 (07:56→19:09)
[2020-01-18] MEDS: Docusate Sodium 100 MG CAP PO ×2 (07:56→19:09)
[2020-01-18] MEDS: Budesonide/Formoterol 160/4.5 6 GM 60 PUFF INH IH ×2 (08:01→19:09)
[2020-01-18 08:09] LABS: Anion Gap 3.8 mmol/L (3-11); BUN 16 mg/dL (7-18); CO2 38.2 mmol/L (21.0-32.0); CREATININE 0.79 mg/dL (0.55-1.02); Calcium 9.2 mg/dL (8.5-10.1); Chloride 95 mmol/L (98-107); Glucose 261 mg/dL (74-106); Potassium 3.9 mmol/L (3.5-5.1); Sodium 137 mmol/L (136-145)
[2020-01-18 08:13] VITALS: BP 116/70; PULSE 70; RESP 19; TEMP 36.6; O2SAT 97
[2020-01-18 08:18] LABS: C-Reactive Protein 7.23 mg/dL (0.0-0.3); Magnesium 1.8 mg/dL (1.8-2.4); NT-proBNP 1802 pg/mL (<300)
[2020-01-18] MEDS: diazePAM 10 MG/2 ML SYR 5 MG IM (08:24)
[2020-01-18] MEDS: Insulin Aspart 300 UNITS/3 ML PEN SC ×7 (08:25→21:35)
[2020-01-18] MEDS: dilTIAZem CD 120 MG CAPCR 240 MG PO (09:22)
[2020-01-18] MEDS: predniSONE 20 MG TAB 40 MG PO (09:22)
[2020-01-18] MEDS: Potassium Chloride Liquid 20 MEQ PKT PO ×3 (09:22→17:25)
[2020-01-18] MEDS: Polyethylene Glycol 3350 17 GM PACKET PO (09:22)
[2020-01-18] MEDS: Insulin NPH-Human 300 UNITS/3 ML PEN 20 UNIT SC (09:23)
[2020-01-18] MEDS: Nystatin POWDER 60 GM JAR TP ×2 (09:24→19:10)
--- NOTE | 2020-01-18 09:36 | DI.RAD_ITS ---
EXAM: XR LINE PLACEMENT PICC/CVA INDICATION: post picc line placement. COMPARISON: CT CT CHEST/ABD/PEL W from 01/14/2020 TECHNIQUE: 2D digital imaging was performed. FINDINGS: The heart is enlarged. There may be a small left pleural effusion a question of adjacent atelectasis . Infiltrate is not excluded. A PICC line has been inserted via the right arm. The tip lies in the expected location of the SVC. There is no pneumothorax. The right lung appears clear. IMPRESSION: Satisfactory placement of PICC. DATA REPOSITORY: RADIATION DOSE DELIVERED:
--- NOTE | 2020-01-18 09:39 | DI.VRAD_ITS ---
PROCEDURE INFORMATION: Exam: XR Chest, 1 View Exam date and time: 01/18/2020 9:31 AM Age: 69 years old Clinical indication: Device placement; Patient HX: Picc line TECHNIQUE: Imaging protocol: XR of the chest Views: 1 view. COMPARISON: CT CHEST/ABD/PEL W 01/14/2020 1:20 PM FINDINGS: Tubes, catheters and devices: A right peripherally inserted central venous catheter lies with its tip in the superior vena cava.. Lungs: Opacity in the left base may represent atelectasis or pneumonia. . Pleural space: There may be small left pleural effusion Heart/Mediastinum: Cardiomegaly Bones/joints: Unremarkable. IMPRESSION: 1. A right peripherally inserted central venous catheter lies with its tip in the superior vena cava.. 2. Opacity in the left base may represent atelectasis or pneumonia. . Dictated and Authenticated by: Shukri Hernandez MD. Ordering:WANDA Bowling MD
[2020-01-18] MEDS: Furosemide 20 MG/2 ML VIAL IVP ×2 (09:48→15:41)
[2020-01-18] MEDS: Normal Saline Flush 10 ML SYR IVP ×4 (09:49→17:24)
[2020-01-18] MEDS: CLINDAMYCIN 900 MG/50 ML BAG 50 MG IVPB ×2 (10:13→17:25)
[2020-01-18 12:39] VITALS: PULSE 67; RESP 2; RESP 20; O2SAT 95
[2020-01-18 12:46] VITALS: PULSE 66; RESP 2; RESP 20; O2SAT 95
[2020-01-18] MEDS: cefTRIAXone 2 GM/50 ML BAG IVPB (13:38)
[2020-01-18 15:44] VITALS: BP 121/71; PULSE 63; RESP 18; TEMP 36.3; O2SAT 96
--- NOTE | 2020-01-18 17:19 | W.PM.PROGNOT ---
Date of Service Date of service: 01/18/20 Time of Service: 17:19 Assessment and Plan Assessment and plan (1) Sepsis: Status: Resolved Assessment and plan: She is no longer septic but has been responding to parenteral antibiotics. I do not feel that her sepsis was from pneumonia but rather from strep bacteremia caused by a cellulitis of her left leg. Because of her penicillin allergy she was placed on Rocephin but did not seem to improve significantly until she got started on the clindamycin. She will need it total of 14 days of antibiotic treatment from her first negative blood culture. End date of her antibiotics is January 29, 2020. (2) Cellulitis: Status: Acute Assessment and plan: As above (3) Streptococcal bacteremia: Status: Acute Assessment and plan: As above (4) Acute on chronic respiratory failure with hypoxia and hypercapnia: Status: Resolved Assessment and plan: I believe her acute on chronic respiratory failure with hypoxemia and hypercapnia was secondary to underlying COPD as well as CHF. Since receiving aggressive IV diuretics there is been a significant decrease in her leg edema. She also probably has obstructive sleep apnea and should have an outpatient sleep study. (5) CHF (congestive heart failure): Status: Acute Assessment and plan: Acute on chronic diastolic CHF. Now appears euvolemic. EF 60 % on echo, does have mild-moderate pulmonary hypertension with RVSP of 24.8 mmHg. Continue to monitor I/O's, daily weights. I have changed her oral Lasix to IV Lasix 20 mg twice a day. Will monitor her daily weight and intake and output. Will check a BNP in the morning. (6) DVT prophylaxis: Status: Acute Assessment and plan: On therapeutic eliquis (7) Discharge planning issues: Status: Acute Assessment and plan: Full code. COVID-19 ruled out. Ok to transfer out of ICU. Length of antibiotics and disposition depend on whether MRI is positive for osteomyelitis. If negative, will need 14 days of antibiotics from 01/15/2020 - choice would depend on ID recommendations. Subjective Subjective Interval history since last seen: Patient underwent placement of PICC line for long-term treatment of group A strep bacteremia. Overall she is doing much better. She is afebrile. Leukocytosis continues to improve. White count is down to 16,000. She is currently on Rocephin 2 g IV daily along with clindamycin 900 mg IV every 8 hours. PICC line was placed today after having had repeat negative blood cultures. She will need a minimum of 2 weeks of parenteral antibiotics from the date of her last negative blood culture. Blood cultures were negative on January 15, 2020 therefore her completion date will be January 29, 2020. Because of the frequency of her clindamycin she will likely need swing bed status rather than transfer to a SNF. Exam Narrative Exam Narrative: Morbidly obese female sitting up in her chair in no acute distress. She is alert and oriented person place time circumstance. Lungs clear to auscultation Heart is regular Abdomen is obese soft and nontender. Normal active bowel sounds. Left leg nonedematous and with marked improvement in her erythema. She has a pebbly chronic venous stasis skin changes to both legs. Objective Last Vital Signs Temp 36.3 C L 01/18/20 15:44 Pulse 63 01/18/20 15:44 Resp 18 01/18/20 15:44 BP 121/71 01/18/20 15:44 Pulse Ox 96 01/18/20 15:44 Laboratory Results - last 24 hr 01/18/20 01/18/20 01/18/20 07:00 07:00 07:00 WBC 16.20 H RBC 3.35 L Hgb 8.3 L Hct 28.7 L MCV 85.7 MCH 24.8 L MCHC 28.9 L RDW 17.2 H Plt Count 353 MPV 9.5 Immature Gran % 3.1 Neutrophils % 77.2 Lymphocytes % 13.6 Monocytes % 5.9 Eosinophils % 0.0 Basophils % 0.2 Nucleated RBC % 0 Absolute Neutrophils 12.51 H Absolute Lymphocytes 2.20 Absolute Monocytes 0.96 H Absolute Eosinophils 0.00 Absolute Basophils 0.03 Sodium 137 Potassium 3.9 Chloride 95 L Carbon Dioxide 38.2 H Anion Gap 3.8 BUN 16 Creatinine 0.79 Estimated GFR/1.73 m2 >= 60.00 Glucose 261 H Calcium 9.2 Magnesium 1.8 C-Reactive Protein 7.23 H NT-Pro-B Natriuret Pep 1802 H
[2020-01-18 18:06] VITALS: PULSE 97; RESP 2; O2SAT 62
--- NOTE | 2020-01-18 18:13 | PDOC.CMPRO ---
Care Management Progress Note S/O: Marlen remains acute at this time. Per MD, she will need it total of 14 days of antibiotic treatment from her first negative blood culture. End date of her antibiotics is anticipated as January 29, 2020. [facility] is unlikely to be able to accommodate IV ABX therapy (Q24, Q8). Anticipate she will enter [facility] under her MCR benefit to complete. will continue to follow. A: Marlen is a 69 year old female admitted to [facility] on 01/14/20 with PNA, cellulitis. P: Marlen is receiving IV abx, she will return to the [facility] when medically ready. Anticipate she will enter [facility] under her MCR benefit to complete IV ABX treatment. She will eventually return to the [facility], [facility] for S/T rehab prior to transitioning to LTC. She will transport via EMS.
[2020-01-18] MEDS: Insulin Glargine 300 UNITS/3 ML PEN 20 UNITS SC (21:40)
[2020-01-18 23:20] VITALS: BP 145/68; PULSE 64; RESP 18; TEMP 36.4; O2SAT 97
[2020-01-19] VITALS (8 sets, daily range): BP systolic 95–106; BP diastolic 60–63; PULSE 56–70; RESP 2–20; TEMP 36.3–36.4; O2SAT 96–100
[2020-01-19] MEDS: Albuterol/Ipratropium 3 ML UPD VIAL UPD ×3 (00:27→18:14)
[2020-01-19] MEDS: CLINDAMYCIN 900 MG/50 ML BAG 50 MG IVPB ×3 (02:12→21:06)
[2020-01-19] MEDS: Levothyroxine 25 MCG TAB 37.5 MCG PO (05:45)
[2020-01-19] MEDS: Budesonide/Formoterol 160/4.5 6 GM 60 PUFF INH IH ×2 (08:01→21:06)
--- NOTE | 2020-01-19 08:30 | DI.RAD_ITS ---
EXAM: XR PORTABLE CHEST AP CLINICAL HISTORY: Follow-up CHF TECHNIQUE: COMPARISON: CR,XR XR LINE PLACEMENT PICC/CVA from 01/18/2020 FINDINGS: Single portable view was obtained. A PICC line is again noted, the tip of the PICC line is difficult to visualize but probably lies in the SVC. Previously noted areas of increased radiodensity at the left lung base are again seen, probably slightly less prominent than on prior examination of January 17, this may represent decreasing pleural effusion and/or atelectasis. Again, consolidation not ex cluded. IMPRESSION: Apparent interval improvement in left basilar radiodensities. PA and lateral chest may be obtained f or follow up when clinically indicated. RADIATION DOSE DELIVERED: Total DLP
[2020-01-19] MEDS: Normal Saline Flush 10 ML SYR IVP ×3 (09:21→13:32)
[2020-01-19] MEDS: Furosemide 20 MG/2 ML VIAL IVP ×2 (09:23→15:50)
[2020-01-19] MEDS: Acetaminophen 325 MG TAB 650 MG PO ×2 (09:24→13:31)
[2020-01-19] MEDS: Cyanocobalamin 100 MCG TABLET PO (09:24)
[2020-01-19] MEDS: dilTIAZem CD 120 MG CAPCR 240 MG PO (09:24)
[2020-01-19] MEDS: Tolterodine 2 MG CAPCR 4 MG PO (09:24)
[2020-01-19] MEDS: Docusate Sodium 100 MG CAP PO ×2 (09:25→21:04)
[2020-01-19] MEDS: Amiodarone 200 MG TAB PO ×2 (09:25→21:07)
[2020-01-19] MEDS: Senna TAB 1 TAB PO ×2 (09:25→21:03)
[2020-01-19] MEDS: Citalopram 20 MG TAB 40 MG PO (09:25)
[2020-01-19] MEDS: Omeprazole 20 MG CAPCR 40 MG PO (09:25)
[2020-01-19] MEDS: Potassium Chloride Liquid 20 MEQ PKT PO ×3 (09:25→17:49)
[2020-01-19] MEDS: predniSONE 20 MG TAB 40 MG PO (09:25)
[2020-01-19] MEDS: Apixaban 5 MG TAB PO ×2 (09:26→21:04)
[2020-01-19] MEDS: Metoprolol 25 MG TAB PO ×2 (09:26→21:06)
[2020-01-19] MEDS: Folic Acid 1 MG TAB PO (09:26)
[2020-01-19] MEDS: Polyethylene Glycol 3350 17 GM PACKET PO (09:26)
[2020-01-19] MEDS: Aspirin E.C. 81 MG TABEC PO (09:26)
[2020-01-19] MEDS: Insulin NPH-Human 300 UNITS/3 ML PEN 20 UNIT SC (09:55)
[2020-01-19] MEDS: diazePAM 10 MG/2 ML SYR 5 MG IM (10:50)
[2020-01-19] MEDS: Gadoterate meglumine 20 ML VIAL IVP (11:26)
--- NOTE | 2020-01-19 12:30 | DI.MRI_ITS ---
EXAM: MR LOWER EXTREMITY LT WO/W CLINICAL HISTORY: suspected osteomyelitis tib/fib. TECHNIQUE: Multiplanar multisequence MRI was performed. COMPARISON: No exams were available for comparison FINDINGS: MR examination the lower extremity was performed with multiplanar imaging including pre and post cont rast imaging. Patient reportedly has suspected osteomyelitis of the mid leg. Note is made of an apparent bony defect seen on a couple of images at the extreme superior portion of the imaging field which appears to be associated with the posterior tibia near the posterior cruciat e ligament attachment, correlation requested regarding any acute injury in this region. There is very prominent cellular marrow to the level of the distal tibial diaphysis, in this age grou p the possibility of marrow reconversion or a malignant marrow process would have to be considered, p lease correlate clinically. No cortical signal abnormality seen. No enhancing lesion identified in the bone or soft tissues. No subcutaneous or deep tissue abscess. Unremarkable muscular and tendinous signal throughout. IMPRESSION: No evidence of osteomyelitis at this time. Prominent red marrow in the distal femur and proximal 2/3 of the tibia, question marrow reconversion or malignant process, please correlate clinically. Possible injury of the posterior aspect of the tibia, uncertain age, please correlate clinically, kne e CT or radiographs may be considered for further evaluation if clinically indicated. DATA REPOSITORY:
--- NOTE | 2020-01-19 13:15 | W.PM.PROGNOT ---
Date of Service Date of service: 01/19/20 Time of Service: 13:16 Assessment and Plan Assessment and plan (1) Cellulitis: Status: Acute Assessment and plan: Patient remains on Ceftriaxone 2 gm iv daily along w/ Clindamycin 900 mg IV q8hr to treat Group A Strep bacteremia and cellulitis of her left leg. MRI of her left leg is pending to rule to rule out osteomyelitis. Patient has a pick line and will need to complete at least 14 days of parenteral antibiotics from her last negative blood culture. Projected end date of her antibiotics is 01/29/2020. She probably can enter into swing bed status soon. (2) Streptococcal bacteremia: Status: Acute Assessment and plan: As above (3) Acute on chronic respiratory failure with hypoxia and hypercapnia: Status: Resolved Assessment and plan: I believe her acute on chronic respiratory failure with hypoxemia and hypercapnia was secondary to underlying COPD as well as CHF. Since receiving aggressive IV diuretics there is been a significant decrease in her leg edema. She also probably has obstructive sleep apnea and should have an outpatient sleep study. Patient was on iv corticosteroids, now on oral prednisone at 40 mg daily. Begin to taper to 20 mg daily. (4) CHF (congestive heart failure): Status: Acute Assessment and plan: Acute on chronic diastolic CHF. Now appears euvolemic. EF 60 % on echo, does have mild-moderate pulmonary hypertension with RVSP of 24.8 mmHg. Continue to monitor I/O's, daily weights. Continue Lasix 20 mg twice a day. Will monitor her daily weight and intake and output. Will check a BNP in the morning. Qualifiers: Heart failure type: right-sided Heart failure chronicity: acute on chronic Qualified Code(s): I50.813 - Acute on chronic right heart failure (5) DVT prophylaxis: Status: Acute Assessment and plan: On therapeutic eliquis (6) Type 2 diabetes mellitus: Status: Acute Assessment and plan: On outpatient basis patient is on metformin but d/t her initial presentation w/ sepsis and RAQUEL her metformin was witheld. She is now on high dose sliding scale novolog along w/ CHO coverage and NPH (while she is on steroids). Her glucose is running high probably d/t her bacteremia/cellulitis but also d/t her steroids. I am tapering her off her prednisone. Will continue her NPH while she is on prednisone. I have adjusted her novolog CHO coverage. with her improved renal function, she could go back on metformin. Her CHF is not d/t systolic failure therefore no contraindications to her metformin. She was given iv contrast for her CT of her chest/abdomen/pelvis but this was done on 01/13. Qualifiers: Diabetes mellitus watermaster insulin use: without chcf use Diabetes mellitus complication status: without complication Qualified Code(s): E11.9 - Type 2 diabetes mellitus without complications (7) Discharge planning issues: Status: Acute Assessment and plan: Ok to transfer to swing bed status tomorrow if renal function remains stable. She will need to complete 14 days of parenteral antibiotics for Strep Group A bacteremia and cellulitis. Subjective Subjective Patient reports: no new complaints, feels better, pain is less and no bowel movement; denies shortness of breath Interval history since last seen: Patient underwent placement of PICC line for long-term treatment of group A strep bacteremia. Overall she is doing much better. She is afebrile. Leukocytosis continues to improve. White count is down to 16,000. She is currently on Rocephin 2 g IV daily along with clindamycin 900 mg IV every 8 hours. PICC line was placed today after having had repeat negative blood cultures. She will need a minimum of 2 weeks of parenteral antibiotics from the date of her last negative blood culture. Blood cultures were negative on January 15, 2020 therefore her completion date will be January 29, 2020. Because of the frequency of her clindamycin she will likely need swing bed status rather than transfer to a SNF. Exam Narrative Exam Narrative: Morbidly obese female sitting up in her chair in no acute distress. She is alert and oriented person place time circumstance. Lungs clear to auscultation Heart is regular Abdomen is obese soft and nontender. Normal active bowel sounds. Left leg nonedematous and with marked improvement in her erythema. She has a pebbly chronic venous stasis skin changes to both legs. Objective Last Vital Signs Temp 36.3 C L 01/19/20 07:48 Pulse 62 01/19/20 07:48 Resp 18 01/19/20 07:48 BP 106/63 01/19/20 07:48 Pulse Ox 96 01/19/20 08:00
[2020-01-19] MEDS: Insulin Aspart 300 UNITS/3 ML PEN SC ×5 (13:31→21:05)
[2020-01-19] MEDS: cefTRIAXone 2 GM/50 ML BAG IVPB (13:33)
[2020-01-19] MEDS: Nystatin POWDER 60 GM JAR TP ×2 (14:51→21:07)
[2020-01-19] MEDS: traMADol 50 MG TAB PO (15:50)
[2020-01-19 17:54] LABS: Abs Immature Grans 0.53 10^3/uL (0.0-0.06); MCH 24.5 pg (27.0-33.0); MCHC 27.8 % (32.0-36.0); Nucleated RBC 0 %; Platelet Count 419 10^3/uL (130-400); RBC 3.68 10^6/uL (3.93-5.22); RDW 17.2 % (11.7-14.6); RDW-SD 55.9 fL; WBC 17.32 10^3/uL (4.4-10.8)
[2020-01-19 17:58] LABS: HCT 32.4 % (36.0-46.0)
[2020-01-19 18:04] LABS: Absolute Eosinophil Count 0.17 10^3/uL (0.0-0.7); Absolute Lymphocyte Count 1.04 10^3/uL (1.2-3.4); Absolute Monocyte Count 0.35 10^3/uL (0.1-0.8); Absolute Neutrophil Count 15.76 10^3/uL (1.2-6.7); Bands % 1; Diff Comment Manual Differential; Hypochromasia 2+; Polychromasia Present
[2020-01-19 18:14] LABS: Anion Gap 0.3 mmol/L (3-11); BUN 20 mg/dL (7-18); CO2 41.7 mmol/L (21.0-32.0); CREATININE 0.93 mg/dL (0.55-1.02); Chloride 94 mmol/L (98-107); Estimated GFR 59.43 (mL/min/1.73m2); Glucose 204 mg/dL (74-106); NT-proBNP 1408 pg/mL (<300); Potassium 4.6 mmol/L (3.5-5.1); Sodium 136 mmol/L (136-145)
--- NOTE | 2020-01-19 18:32 | CMPROGNOTE_ITS ---
- If Service Date Differs Date of service: 01/19/20 Time of Service: 18:32 Care Management Progress Note S/O: Marlen was sitting up in her chair when CM met with her. She reported that she was feeling ok, and that she has received excellent care at [facility]. CM discussed Marlen's need for abx therapy, likely for 2 weeks, which she will remain at [facility] for. She is agreeable to transitioning to [facility] once medically cleared. CM will continue to follow. A: Marlen is a 69 year old female admitted to [facility] on 01/14/20 with PNA, cellulitis. P: Marlen is receiving IV abx, she will return to the [facility] when medically ready. Anticipate she will enter [facility] under her MCR benefit to complete IV ABX treatment. She will eventually return to the [facility], [facility] for S/T rehab prior to transitioning to LTC. She will transport via EMS.
--- NOTE | 2020-01-19 18:32 | PDOC.CMPRO ---
- If Service Date Differs Date of service: 01/19/20 Time of Service: 18:32 Care Management Progress Note S/O: Marlen was sitting up in her chair when CM met with her. She reported that she was feeling ok, and that she has received excellent care at [facility]. CM discussed Marlen's need for abx therapy, likely for 2 weeks, which she will remain at [facility] for. She is agreeable to transitioning to [facility] once medically cleared. CM will continue to follow. A: Marlen is a 69 year old female admitted to [facility] on 01/14/20 with PNA, cellulitis. P: Marlen is receiving IV abx, she will return to the [facility] when medically ready. Anticipate she will enter [facility] under her MCR benefit to complete IV ABX treatment. She will eventually return to the [facility], [facility] for S/T rehab prior to transitioning to LTC. She will transport via EMS.
[2020-01-19] MEDS: Insulin Glargine 300 UNITS/3 ML PEN 20 UNITS SC (21:04)
[2020-01-20] VITALS (8 sets, daily range): BP systolic 93–128; BP diastolic 54–67; PULSE 52–70; RESP 1–19; TEMP 35.5–36.6; O2SAT 96–99
[2020-01-20] MEDS: Albuterol/Ipratropium 3 ML UPD VIAL UPD ×2 (00:45→06:11)
[2020-01-20] MEDS: Mylanta Suspension 30 ML CUP PO (04:49)
[2020-01-20] MEDS: traMADol 50 MG TAB PO ×2 (04:49→20:14)
[2020-01-20] MEDS: CLINDAMYCIN 900 MG/50 ML BAG 50 MG IVPB ×3 (06:10→22:18)
[2020-01-20] MEDS: Levothyroxine 25 MCG TAB 37.5 MCG PO (06:10)
[2020-01-20 06:59] LABS: Abs Immature Grans 0.51 10^3/uL (0.0-0.06); Absolute Basophil Count 0.02 10^3/uL (0.0-0.2); Absolute Lymphocyte Count 3.01 10^3/uL (1.2-3.4); Absolute Monocyte Count 1.22 10^3/uL (0.1-0.8); Absolute Neutrophil Count 11.01 10^3/uL (1.2-6.7); Basophils % 0.1; Eosinophils % 0.6; HCT 30.3 % (36.0-46.0); HGB 8.6 g/dL (11.2-15.7); Immature Grans % 3.2; MCH 24.7 pg (27.0-33.0); MCHC 28.4 % (32.0-36.0); MCV 87.1 fL (80-95); MPV 8.9 fL (8.0-11.0); Monocytes % 7.7; Neutrophils % 69.4; Nucleated RBC 0 %; Platelet Count 393 10^3/uL (130-400); RBC 3.48 10^6/uL (3.93-5.22); RDW 17.4 % (11.7-14.6); WBC 15.86 10^3/uL (4.4-10.8)
[2020-01-20 07:13] LABS: Anion Gap -2.4 mmol/L (3-11); BUN 16 mg/dL (7-18); CO2 43.4 mmol/L (21.0-32.0); CREATININE 0.67 mg/dL (0.55-1.02); Chloride 97 mmol/L (98-107); Glucose 122 mg/dL (74-106); Potassium 4.1 mmol/L (3.5-5.1); Sodium 138 mmol/L (136-145)
[2020-01-20] MEDS: Budesonide/Formoterol 160/4.5 6 GM 60 PUFF INH IH ×2 (07:42→20:12)
[2020-01-20] MEDS: Polyethylene Glycol 3350 17 GM PACKET PO (08:59)
[2020-01-20] MEDS: Potassium Chloride Liquid 20 MEQ PKT PO ×2 (08:59→12:11)
[2020-01-20] MEDS: Furosemide 20 MG/2 ML VIAL IVP ×2 (08:59→16:33)
[2020-01-20] MEDS: Omeprazole 20 MG CAPCR 40 MG PO (09:00)
[2020-01-20] MEDS: Tolterodine 2 MG CAPCR 4 MG PO (09:00)
[2020-01-20] MEDS: Cyanocobalamin 100 MCG TABLET PO (09:00)
[2020-01-20] MEDS: Amiodarone 200 MG TAB PO ×2 (09:00→20:14)
[2020-01-20] MEDS: predniSONE 20 MG TAB PO (09:00)
[2020-01-20] MEDS: Senna TAB 1 TAB PO ×2 (09:00→20:13)
[2020-01-20] MEDS: dilTIAZem CD 120 MG CAPCR 240 MG PO (09:00)
[2020-01-20] MEDS: Metoprolol 25 MG TAB PO ×2 (09:00→20:15)
[2020-01-20] MEDS: Docusate Sodium 100 MG CAP PO ×2 (09:00→20:13)
[2020-01-20] MEDS: Apixaban 5 MG TAB PO ×2 (09:01→20:13)
[2020-01-20] MEDS: Citalopram 20 MG TAB 40 MG PO (09:01)
[2020-01-20] MEDS: Folic Acid 1 MG TAB PO (09:01)
[2020-01-20] MEDS: Aspirin E.C. 81 MG TABEC PO (09:01)
[2020-01-20] MEDS: Insulin NPH-Human 300 UNITS/3 ML PEN 20 UNIT SC (09:01)
[2020-01-20] MEDS: Insulin Aspart 300 UNITS/3 ML PEN SC ×5 (09:03→22:19)
[2020-01-20] MEDS: Normal Saline Flush 10 ML SYR IVP ×3 (09:04→16:33)
[2020-01-20] MEDS: Nystatin POWDER 60 GM JAR TP ×3 (09:06→20:15)
--- NOTE | 2020-01-20 10:11 | IN_ITS ---
Date of service: 01/20/20 Time of Service: 09:10 PT Notes Visit Reasons: PNEUMONIA,CELLULITIS,TOXIC METABOLIC ENCEPHALOPATH Inpatient Physical Therapy Evaluation Date: 01/20/20 Referring Doctor: Dr. Willett PT Orders: PT CONSULT: extended stay- weakness Precautions: fall, standard Patient Profile/Admitting Diagnosis: Patient admitted 01/14/20 from the [facility]. She was diagnosed with sepsis, pneumonia, and cellulitis. PMHX: Atrial fibrillation Cellulitis bilateral lower extremities Chronic respiratory failure with hypoxia COPD (chronic obstructive pulmonary disease) Diabetes mellitus Family history unobtainable due to patient's condition Mood disorder Muscle weakness (generalized) Obesity Social History/Home Situation: Patient is a residence of the [facility]. She's been in [facility] supervisor care for approx 8 months. States that she's had multiple falls, estimating about 7 in the past year. She typically ambulates short distances with a FWW, stating she was able to walk about 10 feet with nursing yesterday, which she states felt great. She uses a wheel chair for longer distances. Equipment Owned/DME: FWW, wheelchair, resident of LTC facility Subjective: Marlen is sitting up in her chair at initiation of session. She reports that she is feeling good, and that she has been doing exercises in her chair. She demonstrates shoulder punches, ankle pumps and LAQ. States that she does these every day on her own. Objective: General Observation: Resting in chair, with Hoffmann catheter and nasal cannula for 4LPM supplemental O2. She has both calves bandaged for wound management. Mental Status: A&Ox3 Pain: denies Vital Signs: SaO2 97% on 4LPM ROM: Right Upper Extremity: WFL Left Upper Extremity: WFL Right Lower Extremity: WFL Left Lower Extremity: WFL Strength: Right Upper Extremity: Shoulder flexion 4/5. Biceps 4+/5. Triceps 4/5. Family Practice Physician Assistant strong and equal. Left Upper Extremity: Shoulder flexion 4/5. Biceps 4+/5. Triceps 4/5. Family Practice Physician Assistant strong and equal. Right Lower Extremity: Hip flexion 4+/5. Quads 4/5. Ankle DF 4/5. Left Lower Extremity: Hip flexion 4+/5. Quads 4/5. Ankle DF 4/5. Bed Mobility/Transfers: sit-stand: min A stand-sit: min Ax1 to EOB. Patient requests to sit in chair, and during transfer from standing to sitting to chair, experiences a controlled fall to the ground. She requires max A transfer via Ken lift to bed. Nursing was alerted and was able to assist with transfer and perform patient evaluation. rolling: mod A Gait: Patient ambulates 20' with min A, FWW, WBAT. Balance: Static Sitting: good Dynamic Sitting: fair Static Standing: poor Dynamic Standing: poor Special Tests: Mobility Limitations Standardized Measure [facility] AM-PAC 6 clicks Basic Mobility Inpatient Short Form: Raw Score: 13 CMS Score: 65% deficit Informed Consent/Education: Patient instructed in purpose of PT consult and plan of care. Assessment: Patient is a 69 year old female referred to physical therapy services with the diagnosis of sepsis. Patient presents with clinical signs and symptoms consistent with weakness related to acute medical condition in combination with chronic underlying health conditions, as demonstrated by the following impairment level findings: 1. Decreased UE and LE strength 2. Decreased activity tolerance 3. Decreased safety with transfers 4. High fall risk Impairments are contributing to the following functional limitations: 1. High fall risk 2. decreased safety with transfers 3. unable to ambulate community distances Patient is assessed as Moderate [id number] complexity based on the following: History: 69 year old female admitted for medical management of sepsis. Patient has underlying mobility deficits, and a history of multiple falls. She is currently a resident of LTC facility. She additionally has multiple underlying health conditions. Examination: functional limitations as noted above Presentation: evolving Decision Making: moderate complexity Goals: Goals X1 week 1. Supine-Sit : CGA 2. Sit-Supine : CGA 3. Sit-Stand : CGA 4. Stand-Sit : CGA 5. Bed-Chair : CGA with FWW 6. Chair-Bed : CGA with FWW 7. Gait : CGA with FWW x 25' Plan of Care/Treatment Plan: 1x/day, 7 days/week x 1 week. Plan of care has been reviewed with the [employer] providing the service under Physical Therapy direction. Initiate Physical Therapy intervention for strengthening, bed mobility, transfers, gait, stairs, balance training, use of assistive device. DISCHARGE RECOMMENDATIONS: return to LTC TREATMENT CODE/TIME: 9:20 - 10:10 ([id number]) Lisette Monreal, PT, DPT [facility]
--- NOTE | 2020-01-20 13:05 | W.PM.PROGNOT ---
Date of Service Date of service: 01/20/20 Time of Service: 13:05 Assessment and Plan Assessment and plan (1) Streptococcal bacteremia: Status: Acute Assessment and plan: Day6 of anitibiotics with planned 2 week course of IV tx Clindamycin and Rocephin. Repeat blood cxs have been negative. (2) Type 2 diabetes mellitus: Status: Acute Assessment and plan: Showing improved control today Elevations may in part be due to prednisone; now on 20mg daily. Taper. Cont current insulin regimen Qualifiers: Diabetes mellitus terminal superintendent insulin use: without terminal superintendent use Diabetes mellitus complication status: without complication Qualified Code(s): E11.9 - Type 2 diabetes mellitus without complications (3) CHF (congestive heart failure): Status: Acute Assessment and plan: R heart failure. Stable. Qualifiers: Heart failure type: right-sided Heart failure chronicity: acute on chronic Qualified Code(s): I50.813 - Acute on chronic right heart failure (4) Cellulitis: Status: Acute Assessment and plan: Improving. Resulted in group a strep bacteremia; on Rocephin and Clindamycin. Cont to elevate LLE above heart level as much as possible and FLORI wrap Qualifiers: Site of cellulitis: extremity Site of cellulitis of extremity: lower extremity Laterality: left Qualified Code(s): L03.116 - Cellulitis of left lower limb (5) Acute on chronic respiratory failure with hypoxia and hypercapnia: Status: Resolved Assessment and plan: Resolved acute component Subjective Subjective Patient reports: no new complaints, feels better, tolerating a regular diet, bowel movement and afebrile Exam Const General: cooperative and no acute distress Nutritional Appearance: obese Orientation: alert and oriented x3 Resp Effort & Inspection: normal respiratory effort Auscultation: clear to auscultation bilaterally Cardio Rate: regular rate Rhythm: regular rhythm Heart Sounds: S1 normal and S2 normal GI Palpation: soft and nontender Auscultation: normal bowel sounds Skin General skin exam: other (venous stasis discoloration of BLEs) Other: L ankle with bandage/FLORI in place. Extrem General: edema Laterality: left (LLE) Objective Last Vital Signs Temp 36.1 C L 01/20/20 11:44 Pulse 58 L 01/20/20 11:44 Resp 16 01/20/20 11:44 BP 99/65 L 01/20/20 11:44 Pulse Ox 98 01/20/20 11:44 Laboratory Results - last 24 hr 01/19/20 01/19/20 01/20/20 17:29 17:29 06:06 WBC 17.32 H RBC 3.68 L Hgb 9.0 L Hct 32.4 L MCV 88.0 MCH 24.5 L MCHC 27.8 L RDW 17.2 H Plt Count 419 H MPV 9.0 Immature Gran % See Differential Neutrophils % 90.0 Band Neutrophils % 1 Lymphocytes % 6.0 Monocytes % 2.0 Eosinophils % 1.0 Basophils % 0.0 Nucleated RBC % 0 Absolute Neutrophils 15.76 H Absolute Lymphocytes 1.04 L Absolute Monocytes 0.35 Absolute Eosinophils 0.17 Absolute Basophils 0.00 RBC Morphology See below Polychromasia Present Hypochromasia 2+ Sodium 136 138 Potassium 4.6 4.1 Chloride 94 L 97 L Carbon Dioxide 41.7 H 43.4 H Anion Gap 0.3 L -2.4 L BUN 20 H 16 Creatinine 0.93 0.67 Estimated GFR/1.73 m2 59.43 >= 60.00 Glucose 204 H 122 H D Calcium 9.0 9.0 NT-Pro-B Natriuret Pep 1408 H 01/20/20 06:06 WBC 15.86 H RBC 3.48 L Hgb 8.6 L Hct 30.3 L MCV 87.1 MCH 24.7 L MCHC 28.4 L RDW 17.4 H Plt Count 393 MPV 8.9 Immature Gran % 3.2 Neutrophils % 69.4 Band Neutrophils % Lymphocytes % 19.0 Monocytes % 7.7 Eosinophils % 0.6 Basophils % 0.1 Nucleated RBC % 0 Absolute Neutrophils 11.01 H Absolute Lymphocytes 3.01 Absolute Monocytes 1.22 H Absolute Eosinophils 0.10 Absolute Basophils 0.02 RBC Morphology Polychromasia Hypochromasia Sodium Potassium Chloride Carbon Dioxide Anion Gap BUN Creatinine Estimated GFR/1.73 m2 Glucose Calcium NT-Pro-B Natriuret Pep
[2020-01-20] MEDS: cefTRIAXone 2 GM/50 ML BAG IVPB (13:27)
--- NOTE | 2020-01-20 15:47 | CHAPLAIN ---
Marlen was sitting up in bed when I visited. She told me about a recent fall and said primarily her pride was injured. She said she has received great care. I will continue to visit.
--- NOTE | 2020-01-20 18:15 | CMPROGNOTE_ITS ---
- If Service Date Differs Date of service: 01/20/20 Time of Service: 18:15 Care Management Progress Note S/O: Marlen was sitting up in her chair when CM met with her. She reported that she had a fall today, but was not hurt. Per report, Marlen was not ready to transition to [facility] today, but may be medically ready tomorrow. She will remain at [facility] to complete her IV abx course. CM will continue to follow. A: Marlen is a 69 year old female admitted to [facility] on 01/14/20 with PNA, cellulitis. P: Marlen is receiving IV abx, she will return to the [facility] when medically ready. Anticipate she will enter [facility] under her MCR benefit to complete IV ABX treatment. She will eventually return to the [facility], [facility] for S/T rehab prior to transitioning to LTC. She will transport via EMS.
--- NOTE | 2020-01-20 18:15 | PDOC.CMPRO ---
- If Service Date Differs Date of service: 01/20/20 Time of Service: 18:15 Care Management Progress Note S/O: Marlen was sitting up in her chair when CM met with her. She reported that she had a fall today, but was not hurt. Per report, Marlen was not ready to transition to [facility] today, but may be medically ready tomorrow. She will remain at [facility] to complete her IV abx course. CM will continue to follow. A: Marlen is a 69 year old female admitted to [facility] on 01/14/20 with PNA, cellulitis. P: Marlen is receiving IV abx, she will return to the [facility] when medically ready. Anticipate she will enter [facility] under her MCR benefit to complete IV ABX treatment. She will eventually return to the [facility], [facility] for S/T rehab prior to transitioning to LTC. She will transport via EMS.
[2020-01-20] MEDS: Acetaminophen 325 MG TAB 650 MG PO (20:14)
[2020-01-20] MEDS: Insulin Glargine 300 UNITS/3 ML PEN 20 UNITS SC (22:19)
[2020-01-21] MEDS: Levothyroxine 25 MCG TAB 37.5 MCG PO (05:59)
[2020-01-21] MEDS: Normal Saline Flush 10 ML SYR IVP ×3 (06:00→14:57)
[2020-01-21] MEDS: CLINDAMYCIN 900 MG/50 ML BAG 50 MG IVPB ×2 (06:00→16:17)
[2020-01-21 07:11] VITALS: BP 93/55; PULSE 50; RESP 17; TEMP 36; O2SAT 100
[2020-01-21 07:32] VITALS: BP 110/70
[2020-01-21] MEDS: Insulin NPH-Human 300 UNITS/3 ML PEN 20 UNIT SC (07:37)
[2020-01-21] MEDS: Furosemide 20 MG/2 ML VIAL IVP (07:37)
[2020-01-21] MEDS: Docusate Sodium 100 MG CAP PO (07:38)
[2020-01-21] MEDS: Polyethylene Glycol 3350 17 GM PACKET PO (07:38)
[2020-01-21] MEDS: Omeprazole 20 MG CAPCR 40 MG PO (07:38)
[2020-01-21] MEDS: Senna TAB 1 TAB PO (07:38)
[2020-01-21] MEDS: predniSONE 20 MG TAB PO (07:38)
[2020-01-21] MEDS: Tolterodine 2 MG CAPCR 4 MG PO (07:38)
[2020-01-21] MEDS: Cyanocobalamin 100 MCG TABLET PO (07:38)
[2020-01-21] MEDS: dilTIAZem CD 120 MG CAPCR 240 MG PO (07:39)
[2020-01-21] MEDS: Apixaban 5 MG TAB PO (07:39)
[2020-01-21] MEDS: metFORMIN 500 MG TAB 1000 MG PO (07:39)
[2020-01-21] MEDS: Aspirin E.C. 81 MG TABEC PO (07:39)
[2020-01-21] MEDS: Citalopram 20 MG TAB 40 MG PO (07:39)
[2020-01-21] MEDS: Folic Acid 1 MG TAB PO (07:39)
[2020-01-21] MEDS: Amiodarone 200 MG TAB PO (07:39)
[2020-01-21] MEDS: Nystatin POWDER 60 GM JAR TP ×2 (07:41→14:58)
[2020-01-21] MEDS: Potassium Chloride 10 MEQ CAPCR 20 MEQ PO (07:42)
[2020-01-21] MEDS: Tiotropium Bromide-Respimat 10 PUFF INH IH (08:00)
[2020-01-21] MEDS: Budesonide/Formoterol 160/4.5 6 GM 60 PUFF INH IH (08:02)
[2020-01-21] MEDS: Insulin Aspart 300 UNITS/3 ML PEN SC ×3 (10:31→12:07)
--- NOTE | 2020-01-21 12:33 | W.PM.DS.N ---
Date of service: 01/21/20 Time of Service: 12:34 DS: Diagnosis Discharge Diagnosis (1) Streptococcal bacteremia: Status: Acute (2) Type 2 diabetes mellitus: Status: Acute (3) CHF (congestive heart failure): Status: Acute (4) Cellulitis: Status: Acute (5) Acute on chronic respiratory failure with hypoxia and hypercapnia: Status: Resolved Discharge Plan Disposition Patient Disposition: [facility] SWING BED LEVEL 1 Condition: Fair Discharge Details Reason For Visit: PNEUMONIA,CELLULITIS,TOXIC METABOLIC ENCEPHALOPATH Admit Date/Time: 01/14/20 14:45 Admit Provider: Tawnya Mayfield Attending Provider: Tawnya Mayfield Primary Care Provider: Unknown,Unknown Hospital Course Hospital Course: Ms King is a 69 year old female from the [facility] who has a PMHx of NIDDM2, 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 In the ED, her temperature is 37.4, and reportedly she is A&Ox3. Her imaging shows a possible right middle lobe and left lingular pneumonia. Her WBC count was 34.05, and procalcitonin of 1.8, warranting initiation of empiric antibiotics (vancomycin, ceftriaxone; she is allergic to penicillins). Her UA was negative; blood cultures are pending. We were asked to admit the patient for further care. She was noted to have cellulitis of the LLE/ankle dorsum of foot. On initial exam, she was shaking, lethargic. She aroused with difficulty to both verbal and painful stimuli. She answered yes to feeling cold and being short of breath. She did not answer my other questions. Echocardiogram showed Mildly dilated left ventricular with normal EF of 60%. Mild aortic stenosis otherwise valves were normal. MRI of LLE w/o evidence of osteomyelitis. Blood culture grew Group A strep. Rocephin continued. Vancomycin d/c'd. Clindamycin initiated. She received agressive diuresis and the LE edema improved. Her cellulitis also showed resolution. FLORI wrap to the left ankle employed. Initially, for COPD exacerbation and acute on chronic resp failure with hypoxemia and hypercapnia, IV steroids used. She was subsequently changed to po prednisone, then steroids stopped. Her WBC count improved and was 15.86 on last check and will be monitored while swingbed status. She will continued the IV antibiotics for a total of 14 days. Home Meds and New Rx's Prescriptions: No Action aspirin [Aspir-Low] 81 mg Tablet,Delayed Release (Dr/Ec) 81 mg PO QAM RF: 0 citalopram 40 mg tablet 40 mg PO QAM RF: 0 diltiazem HCl [DILT-XR] 240 mg capsule,ext.rel 24h degradable 240 mg PO QAM RF: 0 folic acid 1 mg Tablet 1 mg PO QAM RF: 0 omeprazole 40 mg capsule,delayed release(DR/EC) 40 mg PO QAM RF: 0 Spiriva Respimat 2.5 mcg/actuation mist 1 inh INHALATION DAILY RF: 0 tolterodine 4 mg capsule,extended release 24hr 4 mg PO QAM RF: 0 cyanocobalamin (vitamin B-12) [Vitamin B-12] 100 mcg Tablet 100 mcg PO QAM RF: 0 amiodarone 200 mg tablet 200 mg PO BID RF: 0 budesonide-formoterol [Symbicort] 160-4.5 mcg/actuation HFA aerosol inhaler 2 inh INHALATION BID RF: 0 Eliquis 5 mg tablet 5 mg PO BID RF: 0 metoprolol tartrate 25 mg tablet 25 mg PO BID RF: 0 levothyroxine 75 mcg Tablet 37.5 mcg PO QAM RF: 0 furosemide [Lasix] 20 mg Tablet 20 mg PO QAM RF: 0 albuterol sulfate 90 mcg/actuation HFA aerosol inhaler 2 inh INHALATION Q4H PRNRF: 0 tramadol 50 mg Tablet 50 mg PO QID PRNRF: 0 triamcinolone acetonide 0.5 % cream 1 applic TOPICAL BID PRNRF: 0 acetaminophen [Tylenol] 325 mg Tablet 650 mg PO Q4H PRNRF: 0 sodium chloride [Saline Nasal Mist] 0.65 % Aerosol,[place] 2 spray INTRANASAL Q2H PRNRF: 0 Saline Nasal (aloe vera) Gel 1 applic intranasal TID PRNRF: 0 epinephrine [Epi E-Z Pen] 0.3 mg/0.3 mL Auto-Injector 0.3 mg IM PRN PRNRF: 0 polyethylene glycol 3350 [Miralax] 17 gram/dose Powder 17 g PO DIRECTED RF: 0 metformin [Glucophage] 1,000 mg Tablet 1,000 mg PO BID RF: 0 Discharge Instructions Activity:: Activity as Tolerated Equipment/Supplies:: No Equipment Needed Diet:: diabetic and low Na DS: Summary Status at Discharge Functional status at discharge: uses cane/walker Overall status at discharge: patient is progressing back to baseline Mental Status: mental status grossly normal Speech and Movement: speech and movement normal Mood: congruent mood Affect: normal affect Exam Const General: cooperative and no acute distress Nutritional Appearance: obese Orientation: alert and oriented x3 Eyes Sclera: sclerae normal Pupils: PERRL Resp Effort & Inspection: normal respiratory effort Auscultation: clear to auscultation bilaterally and diminished lung sounds Cardio Rate: regular rate Rhythm: regular rhythm Heart Sounds: S1 normal, S2 normal and other (distant breath sounds) GI Inspection: obesity Palpation: soft and nontender Auscultation: normal bowel sounds Extrem Right lower extremity: edema Left lower extremity: ankle (FLORI wrap in place. + edema) Psych Mental Status: mental status grossly normal Speech and Movement: speech and movement normal Mood: congruent mood Affect: normal affect DS: Data Vitals/I&O Vitals and I&O: Vital Signs Temperature 36 C L 01/21/20 07:11 Temperature Source Tympanic 01/21/20 07:11 Pulse 50 L 01/21/20 07:11 Pulse Rhythm Regular 01/21/20 07:30 Pulse 78 01/15/20 12:30 Respiratory Rate 17 01/21/20 07:11 Respiratory Effort Non-Labored 01/21/20 07:30 Respiratory Depth Normal 01/21/20 07:30 Respiratory Pattern Normal 01/21/20 07:30 Blood Pressure 110/70 01/21/20 07:32 Blood Pressure Mean 58 01/16/20 09:00 Blood Pressure Position Supine 01/15/20 08:30 Pulse Oximetry 100 01/21/20 07:11 Oxygen Delivery Method Nasal Cannula 01/21/20 07:11 Oxygen Flow Rate 5 01/21/20 07:11 Fraction of Inspired Oxygen (FIO2) 30 01/14/20 19:06 Pain Level 5 01/21/20 07:11 Comment 01/20/20 11:44 Intake & Output 01/20/20 01/21/20 01/21/20 23:59 11:59 23:59 Intake Total 630 / 1470 480 / 480 Output Total 1850 / 4025 1874 Balance -1220 / -2555 -1395 / -1395 Weight 144.8 kg Intake: IV 150 / 200 Oral 480 / 1270 480 / 480 Output: Urine 1849 Other: Urine Color Yellow Dark Milli Urine Appearance Clear Clear Clots Urine Odor Normal Stool Size Moderate Stool Characteristics Soft Formed Brown Voiding Methods Toilet [facility] Medical History Arthritis Atrial fibrillation Cellulitis bilateral lower extremities CHF (congestive heart failure) Chronic respiratory failure with hypoxia COPD (chronic obstructive pulmonary disease) Diabetes mellitus Family history unobtainable due to patient's condition GERD (gastroesophageal reflux disease) Hypercholesterolemia Mood disorder Muscle weakness (generalized) Obesity Plaque psoriasis Type 2 diabetes mellitus Surgical History H/O hand surgery right index finger removal of tendon sheath ganglion H/O: hysterectomy History of carpal tunnel surgery of right wrist History of excision of lesion abdominal cyst removed S/P appendectomy Family History Father Heart disease 2 [place], at 62 Mother Heart disease Social History Smoking/Tobacco Use Status: Unknown Smoking risk assessment performed?: Yes
--- NOTE | 2020-01-21 14:56 | PTTR_ITS ---
Date of service: 01/21/20 Time of Service: 14:57 PT Notes Visit Reasons: PNEUMONIA,CELLULITIS,TOXIC METABOLIC ENCEPHALOPATH 01/21/2020 SUBJECTIVE: Marlen stating she feels fatigued today. She has minor soreness in her knee from fall yesterday but this is minimal. She is agreeable to PT zen atment. She also complains of lightheadedness throughout treatment today. OBJECTIVE: [id number] TRANSFERS Sit to stand: CGA Stand to sit: CGA GAIT Device: FWW Weight bearing: AT Assist: CGA Distance: 15'x2 Deviation: 1 sit rest break THEREX: Light LE strengthening performed in seated position. Discontinued when pt has increased lightheadedness. VITALS: 93% Sa92 ASSESSMENT: Tolerates gait well without LOB. She fatigues quickly through her LE's. She notes she does not walk long distances at baseline. PLAN: Continue to progress mobility and strength as she is able to tolerate. Treatment time: 15 minutes Nubia Jensen PTA Clinic location: [facility] [place], [place]
[2020-01-21] MEDS: cefTRIAXone 2 GM/50 ML BAG IVPB (14:57)
[2020-01-21] MEDS: Acetaminophen 325 MG TAB 650 MG PO (14:58)
--- NOTE | 2020-01-21 15:13 | CMPROGNOTE_ITS ---
- If Service Date Differs Date of service: 01/21/20 Time of Service: 15:13 Care Management Progress Note S/O: Marlen was sitting up in her chair when CM met with her. She reported that she was doing well. CM went over the Swing bed contract and packet, answering any questions she had regarding the change of status. CM called the [facility] and reported that Marlen will remain at [facility] for the duration of her IV antibiotic course, which will be complete on 01/29/20. CM offered cart items to help Marlen pass the time. She reported that she doesn't have her glasses in order to participate in activities. CM will CM will continue to follow. A: Marlen is a 69 year old female admitted to [facility] on 01/14/20 with PNA, Cellulitis. P: Marlen will transition to SWB 1 to complete her IV abx course. She will remain at [facility] through her last dose, which is expected to be 01/29/20. She will return to the [facility] following her abx treatment. She will transport via [facility] w/c van, coordinated by RYAN. CM will continue to follow and support discharge planning considerations.
[2020-01-21] MEDS: Furosemide 20 MG TAB PO (15:44)
--- NOTE | 2020-01-22 08:00 | PT.INDS ---
Date of service: 01/22/20 Time of Service: 08:39 PT Notes Visit Reasons: PNEUMONIA,CELLULITIS,TOXIC METABOLIC ENCEPHALOPATH Physical Therapy Inpatient Discharge Summary Date: 01/22/20 Referring Doctor: Dr. Willett PT Orders: PT CONSULT: extended stay- weakness Precautions: fall, standard Patient Profile/Admitting Diagnosis: Converts to swing bed level 1 as of 01/22/2020 and will be reevaluated for continued physical therapy services. Patient admitted 01/14/20 from the [facility]. She was diagnosed with sepsis, pneumonia, and cellulitis. PMHX: Atrial fibrillation Cellulitis bilateral lower extremities Chronic respiratory failure with hypoxia COPD (chronic obstructive pulmonary disease) Diabetes mellitus Family history unobtainable due to patient's condition Mood disorder Muscle weakness (generalized) Obesity Social History/Home Situation: Patient is a residence of the [facility]. 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 States that she's had multiple falls, estimating about 7 in the past year. She typically ambulates short distances with a FWW, stating she was able to walk about 10 feet with nursing yesterday, which she states felt great. She uses a wheel chair for longer distances. Equipment Owned/DME: FWW, wheelchair, resident of LTC facility Subjective: NT. See most recent CONSTRUCTION PROJECT COORDINATOR notes. Objective: General Observation: NT. See most recent CONSTRUCTION PROJECT COORDINATOR notes. Mental Status: NT. See most recent CONSTRUCTION PROJECT COORDINATOR notes. Pain: NT. See most recent CONSTRUCTION PROJECT COORDINATOR notes. ROM: Right Upper Extremity: WFL Left Upper Extremity: WFL Right Lower Extremity: WFL Left Lower Extremity: WFL Strength: Right Upper Extremity: Shoulder flexion 4/5. Biceps 4+/5. Triceps 4/5. Data Warehousing Specialist strong and equal. Left Upper Extremity: Shoulder flexion 4/5. Biceps 4+/5. Triceps 4/5. Data Warehousing Specialist strong and equal. Right Lower Extremity: Hip flexion 4+/5. Quads 4/5. Ankle DF 4/5. Left Lower Extremity: Hip flexion 4+/5. Quads 4/5. Ankle DF 4/5. Bed Mobility/Transfers: sit-stand: CGA stand-sit: CGA Gait: Patient ambulates 15 feet x 2 with CGA, FWW, WBAT. Balance: Static Sitting: good Dynamic Sitting: fair Static Standing: poor Dynamic Standing: poor Assessment: Patient is a 69 year old female referred to physical therapy services with the diagnosis of sepsis. Patient presents with clinical signs and symptoms consistent with weakness related to acute medical condition in combination with chronic underlying health conditions, as demonstrated by the following impairment level findings: 1. Decreased UE and LE strength 2. Decreased activity tolerance 3. Decreased safety with transfers 4. High fall risk Impairments are continuing to contributing to the following functional limitations: 1. High fall risk 2. decreased safety with transfers 3. unable to ambulate community distances Goals: Goals X1 week 1. Supine-Sit : CGA MET 2. Sit-Supine : CGA MET 3. Sit-Stand : CGA MET 4. Stand-Sit : CGA MET 5. Bed-Chair : CGA with FWW MET 6. Chair-Bed : CGA with FWW MET 7. Gait : CGA with FWW x 25' NOT MET DISCHARGE RECOMMENDATIONS: Return to SNF when medically cleared by hospitalist. TREATMENT CODE/TIME: NC. Thank you for the opportunity to participate in the care of this patient. Pily Myrick PT, DPT, CLT [facility] [place], [place]
--- NOTE | 2020-01-29 17:30 | CMDISCH_ITS ---
- If Service Date Differs Date of service: 01/29/20 Time of Service: 17:30 LACE Index Scoring Tool - Questions: Length of Stay (in days): 14 or more Acuity (Admit via E.D.?): Yes Comorbidities: Diabetes w/o Complication, Congestive Heart Failure E.D. Visits: 1 - Answers: Total Score: 14 Risk of Readmission: High Risk Care Management Discharge Reason for Hospitalization: Pneumonia Discharge Plan: Marlen will return to the [facility], where she resides. She will transfer for short term rehab prior to transitioning to level three residence. She will transport via [employer] wheelchair van, coordinated by CM. She will follow up with her PCP and discharge plan of care. She is happy to be going back, but was very pleased with the care she received at [facility]. Patient/Family Education Needs: Review discharge instructions regarding activity levels and medications with Marlen and staff at the [facility], discussion of self care needs and goals of care. Services Needed at Discharge: Custodial Facility ([facility]), Transportation ([facility] w/c van)
== END 2020-01-21 15:40 | disposition swing bed (61) | DRG 871 ==
LOC: ER 17:02 → ICU 17:23 → MS 01-16 11:45
PROVIDERS: Internal Medicine; Admitting Provider Internal Medicine; Emergency Provider Physician Assistant; Visit Provider Internal Medicine
DX: A40.0 Sepsis due to streptococcus, group A (principal); J96.21 Acute and chronic respiratory failure with hypoxia; J96.22 Acute and chronic respiratory failure with hypercapnia; J18.9 Pneumonia, unspecified organism; G92 Toxic encephalopathy; I50.33 Acute on chronic diastolic (congestive) heart failure; Z68.43 Body mass index [BMI] 50.0-59.9, adult; J44.0 Chronic obstructive pulmonary disease with (acute) lower respiratory infection; L03.116 Cellulitis of left lower limb; J44.1 Chronic obstructive pulmonary disease with (acute) exacerbation; L97.221 Non-pressure chronic ulcer of left calf limited to breakdown of skin; E66.01 Morbid (severe) obesity due to excess calories; I48.91 Unspecified atrial fibrillation; Z79.01 Long term (current) use of anticoagulants; E11.9 Type 2 diabetes mellitus without complications; M62.81 Muscle weakness (generalized); E83.42 Hypomagnesemia; Z11.59 Encounter for screening for other viral diseases; I87.2 Venous insufficiency (chronic) (peripheral); L97.521 Non-pressure chronic ulcer of other part of left foot limited to breakdown of skin; Z99.81 Dependence on supplemental oxygen; I11.0 Hypertensive heart disease with heart failure
CPT/HCPCS: 36569; 36410; 36415; 36573; 74177; 77001; 80048; 80053; 82805; 84145; 87040; 87077; 87081; 93005; 93306; 94640; 96361; 96365; 96366; 96368; 96375; 97162; 99232; 99233; 99239; 99285; 99291; U0003; 36600; 70450; 71045; 71260; 73590; 73720; 80202; 81003; 81015; 82607; 82728; 82746; 83036; 83540; 83550; 83605; 83735; 83880; 84439; 84443; 84484; 85025; 85610; 86140; 93010; 93970; 94660; J1940; J1941; J2060; J2930; J3360; J3475; J3490; J7512; J7620

== ENCOUNTER 2020-01-21 12:55 | Inpatient (IN) | payer MEDICARE, MEDICAID, SELFPAY ==
--- NOTE | 2020-01-21 13:00 | HPE_ITS ---
Date of service: 01/21/20 Time of Service: 13:01 Assessment and Plan Assessment and plan (1) Streptococcal bacteremia: Status: Acute Assessment and plan: 14 days of IV antibiotics planned; Rocephin and Clindamycin Today is day 8. (2) Type 2 diabetes mellitus: Status: Acute Assessment and plan: glucose readings improving; no longer on steroids. Cont Lantus, NPH and SS insulin corrective dose. Cont diabetic diet. 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 Low Na diet. Qualifiers: Heart failure type: right-sided Heart failure chronicity: acute on chronic Qualified Code(s): I50.813 - Acute on chronic right heart failure (4) Acute on chronic respiratory failure with hypoxia and hypercapnia: Status: Resolved Assessment and plan: Acute componenet has resolved. Now on 4 L supplemental O2; baseline. (5) Cellulitis: Status: Acute Assessment and plan: Resolved. Continuing on antibiotics for group A strep bacteremia. 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 ED today for decreased level of alertness/altered mental status. In the ED, her temperature is 37.4, and reportedly she is A&Ox3. Her imaging shows a possible right middle lobe and left lingular pneumonia. Her WBC count was 34.05, and procalcitonin of 1.8, warranting initiation of empiric antibiotics (vancomycin, ceftriaxone; she is allergic to penicillins). Her UA was negative; blood cultures are pending. We were asked to admit the patient for further care. She was noted to have cellulitis of the LLE/ankle dorsum of foot. On initial exam, she was shaking, lethargic. She aroused with difficulty to both verbal and painful stimuli. She answered yes to feeling cold and being short of breath. She did not answer my other questions. Echocardiogram showed Mildly dilated left ventricular with normal EF of 60%. Mild aortic stenosis otherwise valves were normal. MRI of LLE w/o evidence of osteomyelitis. Blood culture grew Group A strep. Rocephin continued. Vancomycin d/c'd. Clindamycin initiated. She received agressive diuresis and the LE edema improved. Her cellulitis also showed resolution. FLORI wrap to the left ankle employed. Initially, for COPD exacerbation and acute on chronic resp failure with hypoxemia and hypercapnia, IV steroids used. She was subsequently changed to po prednisone, then steroids stopped. Her WBC count improved and was 15.86 on last check and will be monitored while swingbed status. She will continued the IV antibiotics for a total of 14 days. She currently endorses feeling better overall. No CP, palpitations, F/C. Stools more frequent and softner than usual. Review of Systems Constitutional Constitutional: Reports as per [facility] Medical History Arthritis Atrial fibrillation Cellulitis bilateral lower extremities CHF (congestive heart failure) Chronic respiratory failure with hypoxia COPD (chronic obstructive pulmonary disease) Diabetes mellitus Family history unobtainable due to patient's condition GERD (gastroesophageal reflux disease) Hypercholesterolemia Mood disorder Muscle weakness (generalized) Obesity Plaque psoriasis Type 2 diabetes mellitus Surgical History H/O hand surgery right index finger removal of tendon sheath ganglion H/O: hysterectomy History of carpal tunnel surgery of right wrist History of excision of lesion abdominal cyst removed S/P appendectomy Family History Father Heart disease 2 [place], at 62 Mother Heart disease Social History Smoking/Tobacco Use Status: Unknown Smoking risk assessment performed?: Yes Meds Home Medications and Allergies Home Medications Medication Instructions Recorded Confirmed Type acetaminophen [Tylenol] 650 mg PO Q4H PRN 01/14/20 01/14/20 History albuterol sulfate 2 inh INHALATION Q4H PRN 01/14/20 01/14/20 History amiodarone 200 mg PO BID 01/14/20 01/14/20 History apixaban [Eliquis] 5 mg PO BID 01/14/20 01/14/20 History aspirin [Aspir-Low] 81 mg PO QAM 01/14/20 01/14/20 History budesonide-formoterol [Symbicort] 2 inh INHALATION BID 01/14/20 01/14/20 History citalopram 40 mg PO QAM 01/14/20 01/14/20 History cyanocobalamin (vitamin B-12) 100 mcg PO QAM 01/14/20 01/14/20 History [Vitamin B-12] diltiazem HCl [DILT-XR] 240 mg PO QAM 01/14/20 01/14/20 History epinephrine [Epi E-Z Pen] 0.3 mg IM PRN PRN 01/14/20 01/14/20 History folic acid 1 mg PO QAM 01/14/20 01/14/20 History furosemide [Lasix] 20 mg PO QAM 01/14/20 01/14/20 History levothyroxine 37.5 mcg PO QAM 01/14/20 01/14/20 History metformin [Glucophage] 1,000 mg PO BID 01/14/20 01/14/20 History metoprolol tartrate 25 mg PO BID 01/14/20 01/14/20 History omeprazole 40 mg PO QAM 01/14/20 01/14/20 History polyethylene glycol 3350 [Miralax] 17 g PO DIRECTED 01/14/20 01/14/20 History sodium chloride [Saline Nasal Mist] 2 spray INTRANASAL Q2H PRN 01/14/20 01/14/20 History sodium chloride-aloe vera [Saline 1 applic INTRANASAL TID PRN 01/14/20 01/14/20 History Nasal (aloe vera)] tiotropium bromide [Spiriva 1 inh INHALATION DAILY 01/14/20 01/14/20 History Respimat] tolterodine 4 mg PO QAM 01/14/20 01/14/20 History tramadol 50 mg PO QID PRN 01/14/20 01/14/20 History triamcinolone acetonide 1 applic TOPICAL BID PRN 01/14/20 01/14/20 History Allergies Allergy/AdvReac Type Severity Reaction Status Date / Time bee venom protein (honey bee) Allergy Unknown Unverified 01/14/20 11:44 Penicillins Allergy Unknown Unverified 01/14/20 11:43 strawberry Allergy Unknown Unverified 01/14/20 11:43 Exam Const General: cooperative and no acute distress Nutritional Appearance: obese Orientation: alert and oriented x3 Eyes Sclera: sclerae normal Pupils: PERRL Resp Effort & Inspection: normal respiratory effort Auscultation: clear to auscultation bilaterally and diminished lung sounds Cardio Rate: regular rate Rhythm: regular rhythm Heart Sounds: S1 normal and S2 normal Other: Distant heart sounds. GI Palpation: soft and nontender Auscultation: normal bowel sounds Skin Full body images: 1. FLORI wrap in place. Extrem General: no calf tenderness and edema (LLE with edema / 1+.) COVID-19 Screening Have you, or household traveled for leisure in last 14 days?: No
[2020-01-21 15:30] VITALS: BP 105/66; PULSE 62; RESP 16; TEMP 36.6; O2SAT 96
[2020-01-21] MEDS: CLINDAMYCIN 900 MG/50 ML BAG 50 MG IVPB ×2 (16:18→21:48)
--- NOTE | 2020-01-21 16:58 | PDOC.CMPRO ---
- If Service Date Differs Date of service: 01/21/20 Time of Service: 16:59 Care Management Progress Note S/O: Marlen was sitting up in her chair when CM met with her. She reported that she was doing well. CM went over the Swing bed contract and packet, answering any questions she had regarding the change of status. CM called the [facility] and reported that Marlen will remain at [facility] for the duration of her IV antibiotic course, which will be complete on 01/29/20. CM offered cart items to help Marlen pass the time. She reported that she doesn't have her glasses in order to participate in activities. CM will CM will continue to follow. A: Marlen is a 69 year old female admitted to [facility] on 01/14/20 with PNA, Cellulitis. P: Marlen will transition to SWB 1 to complete her IV abx course. She will remain at [facility] through her last dose, which is expected to be 01/29/20. She will return to the [facility] following her abx treatment. She will transport via [facility] w/c van, coordinated by RYAN. CM will continue to follow and support discharge planning considerations.
--- NOTE | 2020-01-21 16:59 | CMSCP_ITS ---
- If Service Date Differs Date of service: 01/21/20 Time of Service: 16:59 Swingbed Plan of Care Plan of care: SWING BED PROGRAM ACTIVITIES/DISCHARGE PLAN OF CARE ACTIVITIES PLAN Date: 01/21/20 Identified Need: Individualized plan for activities while Marlen remains on SWB1 for her abx course. Intervention/Plan: CM will offer cart items, TV in room. Initials KM DISCHARGE PLAN Date: 01/21/20 Identified Need: Marlen is at [facility] with cellulitis which requires IV abx for two weeks. Intervention/Plan: Marlen will remain on swb1 for the duration of her IV abx course. Her last dose is expected to be 01/29/20. She will also receive PT/OT during her swb stay. Initials MILADIS
--- NOTE | 2020-01-21 17:03 | CMSA_ITS ---
- If Service Date Differs Date of service: 01/21/20 Time of Service: 17:03 SB Psychosocial/Act.Assessment - Hospital Admission Admission Date: 01/14/20 Admission From:: The [facility] Diagnosis:: Pneumonia, Cellulitis - Swing Bed Admission Swing Bed Admit Date:: 01/21/20 Swing Bed Level of Care: Level 1/SNF - Social Supports PREVIOUS FUNCTIONAL STATUS/SOCIAL/FAMILY SUPPORTS:: Marlen is currently at the [facility] for Rehab as a resident she was in an assisted living prior to her admission at the [facility]. Marlen has a daughter and per the [facility] has been notified of admission. CM contacted the [facility] and reviewed her care. - Prior to Admission Living Arrangements/Environment Prior to Admission:: Marlen has been at the [facility] for approximately three weeks. She was previously at a level three facility in [place], [place], but it recently closed. She was moved to the [facility], which she states that she is still adjusting to. - Education Highest Grade Completed:: 12th - Work History Employment Status:: Retired [employer]:: Marlen's most recent job was at the [employer], which she enjoyed. - : No 's Spouse: No - Benefits Financial: Social Security, Medicare, Medicaid - Mu-Ism Active Jewish Member:: No - Advance Directives for Healthcare If no AD, do you want more information:: Yes - Community Community Supports/Involvement: Marlen likes to play Bingo but she hasn't had the opportunity to since being at the [facility], due to Covid. - Present Functional Status Physical Abilities:: Per PT, Poor/Fair ability. Cognitive:: Intact, AOx3 Communication:: Very good Behavior:: Appropriate, pleasant - Medical History PAST MEDICAL HISTORY/PAST SURGICAL HISTORY:: CHF, COPD, DM, GERD, obsesity, generalized weakness, arthritis, afib. Surgical Hx: hand surgery, hysterectomy, carpal tunnel, appendectomy - Admission Data Reason for Swing Bed Admission:: IV abx course, two weeks total Discharge Plan:: Marlen will return to the [facility] once her abx treatment is complete. She will be transported home via [facility] w/c van, coordinated by CM. CM will continue to update the [facility] as needed. Assessment: Marlen will remain at [facility] on SWB1 for IV abx, her last dose expected to be 01/29/20. She will also receive PT/OT. Once her abx course is complete, she will return to the [facility], where she will be level 1 before transitioning to level 3. She will transport via [facility] w/c van, which CM will coordinate. CM will continue to follow and support discharge planning considerations. Child Life Assistant: Sameera Hendricks Date Assessment was completed:: 01/21/20
[2020-01-21] MEDS: metFORMIN 500 MG TAB 1000 MG PO (17:57)
[2020-01-21] MEDS: Insulin Aspart 300 UNITS/3 ML PEN SC ×3 (17:58→21:49)
[2020-01-21] MEDS: traMADol 50 MG TAB PO (18:02)
[2020-01-21] MEDS: Senna TAB 1 TAB PO (19:43)
[2020-01-21] MEDS: Amiodarone 200 MG TAB PO (19:43)
[2020-01-21] MEDS: Docusate Sodium 100 MG CAP PO (19:43)
[2020-01-21] MEDS: Metoprolol 25 MG TAB PO (19:43)
[2020-01-21] MEDS: Apixaban 5 MG TAB PO (19:43)
[2020-01-21] MEDS: Budesonide/Formoterol 160/4.5 6 GM 60 PUFF INH IH (19:44)
[2020-01-21] MEDS: Nystatin POWDER 60 GM JAR TP (19:44)
[2020-01-21] MEDS: Normal Saline Flush 10 ML SYR 20 ML IVP (19:54)
[2020-01-21] MEDS: Insulin Glargine 300 UNITS/3 ML PEN 20 UNITS SC (21:49)
[2020-01-21 23:32] VITALS: BP 96/58; PULSE 74; RESP 18; TEMP 36.7; O2SAT 99
[2020-01-22] MEDS: Acetaminophen 325 MG TAB 650 MG PO (02:39)
[2020-01-22] MEDS: traMADol 50 MG TAB PO ×2 (02:39→10:27)
[2020-01-22 05:05] VITALS: BP 114/61; PULSE 54; RESP 18; TEMP 36; O2SAT 97
[2020-01-22] MEDS: CLINDAMYCIN 900 MG/50 ML BAG 50 MG IVPB ×3 (05:58→22:02)
[2020-01-22] MEDS: Levothyroxine 25 MCG TAB 37.5 MCG PO (05:58)
[2020-01-22] MEDS: Normal Saline Flush 10 ML SYR IVP ×2 (05:59→14:32)
--- NOTE | 2020-01-22 07:05 | OT.INIE ---
Occupational Therapy Notes Inpatient Occupational Therapy Evaluation Date: 01/23/20 Referring Doctor:Navin Davidson MD OT Orders: Non-URgent Precautions: Fall, Standard, Full PATIENT PROFILE/ADMITTING DIAGNOSIS: Pt is a 69 year old female who was admitted throughout the ED on 01/14/20 after presenting with altered mental status, pneumonia and cellulitis. She is admitted to Med Surg with a dx of CHF, cellulitis, TYpe II DM. Past Medical History: Medical History Arthritis Atrial fibrillation Cellulitis bilateral lower extremities CHF (congestive heart failure) Chronic respiratory failure with hypoxia COPD (chronic obstructive pulmonary disease) Diabetes mellitus Family history unobtainable due to patient's condition GERD (gastroesophageal reflux disease) Hypercholesterolemia Mood disorder Muscle weakness (generalized) Obesity Plaque psoriasis Type 2 diabetes mellitus Surgical History H/O hand surgery right index finger removal of tendon sheath ganglion H/O: hysterectomy History of carpal tunnel surgery of right wrist History of excision of lesion abdominal cyst removed S/P appendectomy Social History/Home Situation: Pt is a resident of the [facility]. She states that she has (A) with bathing and dressing at baseline. She also reports that she has had multiple frequent falls 5+ in the past couple months. She is discouraged with this and notes that she would like to be more functionally (I) with her walking. Equipment owned/DME: DME needs met per SNF SUBJECTIVE: Pt was going into chair when OT arrived. She was agreeable to OT session and reports that she is at her baseline level of function at this time in terms of her ADL routines. OBJECTIVE: General Observation: Pleasant and agreeable, willing to participate and receptive to training, IV (R) UE Mental Status: A&Ox3 Pain: no c/o pain ROM: RUE AROM WFL L UE AROM WFL STRENGTH: RUE 5/5 throughout globally LUE 5/5 throughout globally SENSATION: Intact (B) UE FUNCTIONAL MOBILITY/ADLS: Transfers with FWW Supine-sit (I) Sit-supine (I) BATHING Pt had just finished performing this prior to OT arrival which she was able to perform (I) with max (A) set up/clean up and max (A) for (B) feet. DRESSING sitting in bed Dressing UE (I) don [facility] gown Dressing LE OT educates and trains pt in use of sock aid as pt reports that she is typically max (A) at baseline with socks. PT was an active participant and receptive to this training. OT also trains pt in long handled shoe horn to facilitate (I). GROOMING Sitting in bed pt was (I) with brushing her hair and teeth with ideal techniques. She does require set up (A) but notes that this is her baseline. TOILETING NT EATING Pt denies any issues with hand ot mouth translation, chewing, swallowing or using utensils to cut her food. BALANCE: Static sitting Normal Dynamic Sitting Normal SPECIAL TESTS: Daily Activity Limitations Standardized Measure [facility] AM -PAC ?6 clicks? Daily Activity Inpatient Short Form: Raw score: 22 Standardized score: 47.10 CMS score: 25.80% INFORMED CONSENT/EDUCATION: Pt instructed in purpose of OT Consult and plan of care. ASSESSMENT: Patient is a 69-year-old female referred to occupational therapy services with diagnosis of CHF, Cellulitis, Type II DM, streptococcal Bact. Patient presents with clinical signs and symptoms consistent with dx. OT went in to consult with pt who reports that she is at her baseline level of function. She notes that she requires (A) with her ADLs and uses adaptive equipment at baseline to increase her functional activity tolerance. OT was able to provide and educate pt with sock aid and long handled shoe horn which she was an active participant in. Pt denies the need for skilled OT services and notes that her biggest limitation at this time is her functional mobility and her frequent falls. AMPAC score 22 Patient is assessed as a Moderate 45991 complexity based on the following: History: see above Examination:see functional limitations as noted above Presentation: evolving Decision Making: AMPAC score 22 GOALS N/A PLAN OF CARE/TREATMENT PLAN: Seen for OT consult only as pt denies the need for further skilled services at this time. DISCHARGE RECOMMENDATIONS REturn to SNF when medically cleared per MD. TREATMENT TIME/MINUTES/CODES 59932, 15 minutes (07:05) [facility]
[2020-01-22 07:40] VITALS: BP 121/67; PULSE 72; RESP 18; TEMP 36.8; O2SAT 96
[2020-01-22] MEDS: Budesonide/Formoterol 160/4.5 6 GM 60 PUFF INH IH ×2 (07:55→19:24)
[2020-01-22 08:01] VITALS: O2SAT 96
[2020-01-22] MEDS: Cyanocobalamin 100 MCG TABLET PO (08:37)
[2020-01-22] MEDS: Potassium Chloride 10 MEQ CAPCR 20 MEQ PO (08:37)
[2020-01-22] MEDS: dilTIAZem CD 120 MG CAPCR 240 MG PO (08:37)
[2020-01-22] MEDS: Apixaban 5 MG TAB PO ×2 (08:38→19:23)
[2020-01-22] MEDS: Metoprolol 25 MG TAB PO ×2 (08:38→19:23)
[2020-01-22] MEDS: metFORMIN 500 MG TAB 1000 MG PO ×2 (08:38→17:14)
[2020-01-22] MEDS: Folic Acid 1 MG TAB PO (08:38)
[2020-01-22] MEDS: Amiodarone 200 MG TAB PO ×2 (08:39→19:23)
[2020-01-22] MEDS: Furosemide 20 MG TAB PO ×2 (08:39→15:41)
[2020-01-22] MEDS: Tolterodine 2 MG CAPCR 4 MG PO (08:39)
[2020-01-22] MEDS: Senna TAB 1 TAB PO ×2 (08:39→19:24)
--- NOTE | 2020-01-22 08:39 | PT.INIE ---
Date of service: 01/22/20 Time of Service: 08:39 PT Notes Visit Reasons: SB1 Inpatient Physical Swing Bed Level 1 Physical Therapy Evaluation Date: 01/22/20 Referring Doctor: Navin Davidson MD PT Orders: PT CONSULT: extended stay- weakness Precautions: Fall. Standard. Activity as tolearted. Patient Profile/Admitting Diagnosis: Marlen converted to swing bed level 1 as of 01/22/2020 and is re-evalauted today for continued physical therapy services. Patient admitted 01/14/20 from the [facility]. She was diagnosed with sepsis, pneumonia, and cellulitis. PMHX: Medical History Arthritis Atrial fibrillation Cellulitis bilateral lower extremities CHF (congestive heart failure) Chronic respiratory failure with hypoxia COPD (chronic obstructive pulmonary disease) Diabetes mellitus Family history unobtainable due to patient's condition GERD (gastroesophageal reflux disease) Hypercholesterolemia Mood disorder Muscle weakness (generalized) Obesity Plaque psoriasis Type 2 diabetes mellitus Surgical History H/O hand surgery right index finger removal of tendon sheath ganglion H/O: hysterectomy History of carpal tunnel surgery of right wrist History of excision of lesion abdominal cyst removed S/P appendectomy Social History/Home Situation: Patient is a residence of the [facility]. She's been in care home care for approx 8 months. States that she's had multiple falls, estimating about 7 in the past year. She typically ambulates short distances with a FWW, stating she was able to walk about 10 feet with nursing yesterday, which she states felt great. She uses a wheel chair for longer distances. Equipment Owned/DME: FWW, wheelchair, resident of LTC facility Subjective: Reports feeling a lot better today. Agreeable to PT consult. Hopes to go back to the [facility] whenever she is ready to. Objective: General Observation: Resting in chair, with Hoffmann catheter and nasal cannula for 4LPM supplemental O2. FLORI wraps to B legs. Patchy erythema seen on bilateral thighs. Mental Status: Comes for Pain: None reported Vital Signs: 97% on 4 L of oxygen per minute ROM: Right Upper Extremity: WFL Left Upper Extremity: WFL Right Lower Extremity: WFL Left Lower Extremity: WFL Strength: Right Upper Extremity: Shoulder flexion 4/5. Biceps 4+/5. Triceps 4/5. Contracting Analyst strong and equal. Left Upper Extremity: Shoulder flexion 4/5. Biceps 4+/5. Triceps 4/5. Contracting Analyst strong and equal. Right Lower Extremity: Hip flexion 3-/5. Quads 4/5. Ankle DF 4/5. Left Lower Extremity: Hip flexion 3-/5. Quads 4/5. Ankle DF 4/5. Bed Mobility/Transfers: Sit to stand standby assist Stand to sit standby assist Bed to chair standby assist Chair to bed standby assist Gait: 250 feet using front wheeled walker with full weightbearing requiring only standby assist demonstrating reciprocal gait pattern but with decreased josh and decreased step height on the left. SaO2 at 96% on 5 L of oxygen per minute with reduction to 91% on 4 liters of oxygen per minute at rest. Balance: Static Sitting: Normal Dynamic Sitting: Normal Static Standing: Fair Dynamic Standing: Fair Special Tests: Mobility Limitations Standardized Measure [facility] AM-PAC 6 clicks Basic Mobility Inpatient Short Form: Raw Score: 22 CMS Score: 21% deficit Informed Consent/Education: Patient instructed in purpose of PT consult and plan of care. Assessment: Marlen ortega with Singh requiring the use of wheeled walker and assistance of 1. Referral mobility ADL performance, impairment in gait, decreased balance skills, difficulty with walking, and increased risk of falls due to admitting diagnoses and co-morbidities. Patient continues to present with clinical signs and symptoms consistent with weakness related to acute medical condition in combination with chronic underlying health conditions, as demonstrated by the following impairment level findings: 1. Decreased UE and LE strength 2. Decreased activity tolerance 3. Decreased safety with transfers 4. High fall risk 5. Swelling in B legs Impairments are continuing to contributing to the following functional limitations: 1. High fall risk 2. decreased safety with transfers 3. unable to ambulate community distances Patient is assessed as Moderate 97485 complexity based on the following: History: 69-year-old female with functional limitations, impairment level findings, and medical history as listed above Examination: Demonstrable impairment in strength, balance, and mobility level with underlying impairments and functional limitations as documented above Presentation: Evolving Decision Making: moderate complexity Goals: Goals X1 week 1. Supine-Sit independent 2. Sit-Supine independent 3. Sit-Stand independent 4. Stand-Sit independent 5. Bed-Chair independent 6. Chair-Bed independent 7. Independent gait on level surface with use of least restrictive device for at least 300 feet without report of pain nor dyspnea 8. Good static and dynamic standing balance/tolerance Plan of Care/Treatment Plan: 1x/day, 7 days/week x 1 week. Plan of care has been reviewed with the CARE MANAGEMENT ASSOCIATE providing the service under Physical Therapy direction. Initiate Physical Therapy intervention for strengthening, bed mobility, transfers, gait, stairs, balance training, use of assistive device. DISCHARGE RECOMMENDATIONS: Return to SNF when medically cleared by hospitalist. TREATMENT CODE/TIME: 04986 x 25 minutes, 47347 x 16 minutes beginning at 8:39 AM. Thank you for the opportunity to participate in the care of this patient. Pily Myrick PT, DPT, CLT [facility] [place], [place]
[2020-01-22] MEDS: predniSONE 20 MG TAB PO (08:40)
[2020-01-22] MEDS: Docusate Sodium 100 MG CAP PO ×2 (08:40→19:23)
[2020-01-22] MEDS: Aspirin E.C. 81 MG TABEC PO (08:40)
[2020-01-22] MEDS: Citalopram 20 MG TAB 40 MG PO (08:40)
[2020-01-22] MEDS: Insulin Aspart 300 UNITS/3 ML PEN SC ×5 (08:41→22:02)
[2020-01-22] MEDS: Normal Saline Flush 10 ML SYR 20 ML IVP ×2 (08:42→19:23)
[2020-01-22] MEDS: Nystatin POWDER 60 GM JAR TP ×2 (08:43→19:24)
[2020-01-22] MEDS: Insulin NPH-Human 300 UNITS/3 ML PEN 20 UNIT SC (08:45)
[2020-01-22] MEDS: Tiotropium Bromide-Respimat 10 PUFF INH IH (09:57)
--- NOTE | 2020-01-22 13:10 | PT.INTREAT ---
Date of service: 01/22/20 Time of Service: 13:10 PT Notes Visit Reasons: SB1 Inpatient Physical Therapy Swing Bed Level 1 Treatment Note Date: 01/22/20 Precautions: Fall. Standard. Activity as tolearted. Subjective: Feel very sleepy but is agreeable to finishing Pt session first. Reported good response from this morning's session. Bed Mobility/Transfers: Sit to stand standby assist Stand to sit standby assist Bed to chair standby assist Chair to bed standby assist Gait: 250 feet using front wheeled walker with full weight bearing requiring only standby assist demonstrating reciprocal gait pattern but with decreased josh and decreased step height on the left. SaO2 at 94% on 5 L of oxygen per minute with reduction to 90% on 4 liters of oxygen per minute at rest. Balance: Static Sitting: Normal Dynamic Sitting: Normal Static Standing: Fair Dynamic Standing: Fair Assessment: Marlen malhotra has performed her best today so far since day of admission with distance covered during ambulation activity with minimal shortness of breath. DISCHARGE RECOMMENDATIONS: Return to SNF when medically cleared by hospitalist. TREATMENT CODE/TIME: 43588 x 20 minutes beginning at 13:10 PM.
[2020-01-22] MEDS: cefTRIAXone 2 GM/50 ML BAG IVPB (15:41)
[2020-01-22 15:59] VITALS: BP 117/69; PULSE 55; RESP 17; TEMP 36.2; O2SAT 96
[2020-01-22 16:08] LABS: Absolute Basophil Count 0.01 10^3/uL (0.0-0.2); Absolute Lymphocyte Count 1.66 10^3/uL (1.2-3.4); Absolute Monocyte Count 0.53 10^3/uL (0.1-0.8); Basophils % 0.1; Eosinophils % 2.2; HCT 31.3 % (36.0-46.0); HGB 8.8 g/dL (11.2-15.7); Immature Grans % 2.9; Lymphocytes % 11.9; MCH 24.4 pg (27.0-33.0); MCHC 28.1 % (32.0-36.0); MCV 86.7 fL (80-95); MPV 9.1 fL (8.0-11.0); Monocytes % 3.8; Neutrophils % 79.1; Nucleated RBC 0 %; Platelet Count 382 10^3/uL (130-400); RBC 3.61 10^6/uL (3.93-5.22); RDW 17.8 % (11.7-14.6); RDW-SD 56.4 fL; WBC 13.95 10^3/uL (4.4-10.8)
[2020-01-22 16:27] LABS: Absolute Eosinophil Count 0.31 10^3/uL (0.0-0.7); Absolute Neutrophil Count 11.03 10^3/uL (1.2-6.7)
[2020-01-22 19:28] VITALS: PULSE 72
[2020-01-22] MEDS: Insulin Glargine 300 UNITS/3 ML PEN 20 UNITS SC (22:03)
[2020-01-22 23:15] VITALS: BP 130/68; PULSE 63; RESP 17; TEMP 36.2; O2SAT 99
[2020-01-23] MEDS: Levothyroxine 25 MCG TAB 37.5 MCG PO (06:14)
[2020-01-23] MEDS: CLINDAMYCIN 900 MG/50 ML BAG 50 MG IVPB ×3 (06:15→21:45)
[2020-01-23] MEDS: Normal Saline Flush 10 ML SYR IVP ×2 (06:15→15:15)
[2020-01-23] MEDS: Acetaminophen 325 MG TAB 650 MG PO (06:15)
[2020-01-23] MEDS: traMADol 50 MG TAB PO ×2 (06:15→21:59)
[2020-01-23 07:47] VITALS: BP 109/60; PULSE 55; RESP 16; TEMP 36; O2SAT 98
[2020-01-23] MEDS: Tiotropium Bromide-Respimat 10 PUFF INH IH (07:49)
[2020-01-23] MEDS: Budesonide/Formoterol 160/4.5 6 GM 60 PUFF INH IH ×2 (07:49→19:41)
[2020-01-23] MEDS: Insulin Aspart 300 UNITS/3 ML PEN SC ×2 (08:37→17:03)
[2020-01-23] MEDS: Insulin NPH-Human 300 UNITS/3 ML PEN 20 UNIT SC (08:39)
[2020-01-23] MEDS: Normal Saline Flush 10 ML SYR 20 ML IVP ×2 (08:43→19:42)
[2020-01-23] MEDS: Citalopram 20 MG TAB 40 MG PO (08:43)
[2020-01-23] MEDS: Potassium Chloride 10 MEQ CAPCR 20 MEQ PO (08:43)
[2020-01-23] MEDS: Aspirin E.C. 81 MG TABEC PO (08:43)
[2020-01-23] MEDS: Apixaban 5 MG TAB PO ×2 (08:43→19:41)
[2020-01-23] MEDS: metFORMIN 500 MG TAB 1000 MG PO ×2 (08:44→17:01)
[2020-01-23] MEDS: dilTIAZem CD 120 MG CAPCR 240 MG PO (08:44)
[2020-01-23] MEDS: Docusate Sodium 100 MG CAP PO ×2 (08:44→19:41)
[2020-01-23] MEDS: Tolterodine 2 MG CAPCR 4 MG PO (08:44)
[2020-01-23] MEDS: Amiodarone 200 MG TAB PO ×2 (08:44→19:41)
[2020-01-23] MEDS: Senna TAB 1 TAB PO ×2 (08:45→19:41)
[2020-01-23] MEDS: Furosemide 20 MG TAB PO ×2 (08:45→17:01)
[2020-01-23] MEDS: Folic Acid 1 MG TAB PO (08:45)
[2020-01-23] MEDS: Cyanocobalamin 100 MCG TABLET PO (08:46)
--- NOTE | 2020-01-23 11:52 | PT.INTREAT ---
Date of service: 01/23/20 Time of Service: 10:30 PT Notes Visit Reasons: SB1 Inpatient Physical Therapy Treatment Note [facility] Date: 01/23/2020 PRECAUTIONS: Fall SUBJECTIVE: Marlen is pleasant and agreeable to participating in PT. OBJECTIVE: PAIN: No c/o pain BED MOBILITY/TRANSFERS Sit-stand: S Stand-sit: S GAIT Assistive Device: FWW Weight bearing: Full Assist: SBA Distance: 200' Deviation: 4L O2 via NC THEREX: Patient was instructed in a resisted UE and LE strengthening program, completed in a seated position, as per flow sheet. TOILETING: Patient toileted with assist ASSESSMENT: Patient tolerated session well, with complaint of fatigue. She was able to tolerate a progression in ther ex program. She would benefit from continued global strengthening for continued progression toward baseline level of function. PLAN: Continue with global strengthening for continued progression toward baseline level of function TREATMENT CODE/TIME: Session 1: 30 minutes; 05787, 75875
[2020-01-23 12:02] VITALS: BP 97/55; PULSE 65; TEMP 36.6; O2SAT 97
--- NOTE | 2020-01-23 12:21 | RESPIRATORY ---
Pt has home o2 order currently for 2-4L. Pt does admit that she does not always wear o2 for work, and upon ambulation she drops to mid 80's on 6L nc. Ear probe and finger probe give varying results even on different machines.(pt's hands are warm, nothing seems to help with a good reading) ABG was done at 1130am 01/23/20 on 4L nc at rest to get a baseline. While resting and not moving pulse ox read 90% spo2 and abg correlated perfectly.
--- NOTE | 2020-01-23 13:01 | PHA.REVIEW ---
Pharmacy Admission Review - Admission Clinical Review (Last Reviewed 01/21/20 @ 13:01 by Navin Davidson MD) Streptococcal bacteremia (Acute) Type 2 diabetes mellitus (Acute) CHF (congestive heart failure) (Acute) Cellulitis (Acute) bee venom protein (honey bee) Allergy (Unknown, Unverified 01/14/20 11:44) Penicillins Allergy (Unknown, Unverified 01/14/20 11:43) strawberry Allergy (Unknown, Unverified 01/14/20 11:43) Height 5 ft 6.14 in Weight 138.9 kg - Renal Dosing Medications needing adjustments: Reviewed List of meds needing interventions: eCrCl is ~111ml/min using adjusted bodyweight - Anticoagulation Anticoagulation: Hgb 8.8 g/dL (11.2-15.7) L 01/22/20 15:38 Hct 31.3 % (36.0-46.0) L 01/22/20 15:38 Plt Count 382 10^3/uL (130-400) 01/22/20 15:38 Therapeutic Anticoagulation: Reviewed Medications: Apixaban - Opiate Usage Evaluate Pain Scale/Pains Meds: Reviewed - Relevant Labs Electrolytes, C-Reactive P, ESR: N/A - DM Control DM Control: Finger Stick Blood Glucose 118 Finger Stick Blood Glucose 127 Finger Stick Blood Glucose 93 Finger Stick Blood Glucose 93 Finger Stick Blood Glucose 93 Finger Stick Blood Glucose 93 Insulin Dosing: Reviewed (aspart per ss, glargine 10u HS, NPH 20u AM) - Heart Failure/WA EF%, FLORI's, B-Blockers, Diuretics: Reviewed - BP Control BP Control: Blood Pressure 97/55 Blood Pressure 109/60 If elevated: Reviewed (some soft pressures - 97/55 today @1202) - Qtc Review If Elevated: N/A - IV to PO Switch IV Medications: Reviewed - Home Meds Home Med List reviewed: Intervened (weren't confirmed -- verified against current orders and ext med hx) Relevent Home Meds Not ordered & why?: all ordered - Current meds Current Medication Order Review: Reviewed
[2020-01-23 13:52] VITALS: BP 119/66; PULSE 63; RESP 19; TEMP 37; O2SAT 96
[2020-01-23 15:17] VITALS: BP 100/60; PULSE 62; RESP 18; TEMP 36.1; O2SAT 98
[2020-01-23] MEDS: Nystatin POWDER 60 GM JAR TP ×2 (15:30→19:42)
[2020-01-23] MEDS: cefTRIAXone 2 GM/50 ML BAG IVPB (17:01)
[2020-01-23] MEDS: Metoprolol 25 MG TAB PO (19:41)
[2020-01-23 19:43] VITALS: BP 106/68; PULSE 66; RESP 19; TEMP 36.8; O2SAT 94
[2020-01-23] MEDS: Insulin Glargine 300 UNITS/3 ML PEN 20 UNITS SC (21:45)
[2020-01-23 23:25] VITALS: BP 119/68; PULSE 62; RESP 18; TEMP 36.3; O2SAT 97
[2020-01-24] MEDS: CLINDAMYCIN 900 MG/50 ML BAG 50 MG IVPB ×3 (06:20→21:58)
[2020-01-24] MEDS: Levothyroxine 25 MCG TAB 37.5 MCG PO (06:20)
[2020-01-24] MEDS: Budesonide/Formoterol 160/4.5 6 GM 60 PUFF INH IH ×2 (07:45→20:16)
[2020-01-24] MEDS: Tiotropium Bromide-Respimat 10 PUFF INH IH (07:46)
[2020-01-24 07:53] VITALS: BP 102/60; PULSE 62; RESP 18; TEMP 36.6; O2SAT 94
[2020-01-24] MEDS: Insulin Aspart 300 UNITS/3 ML PEN SC ×2 (08:06→16:54)
[2020-01-24] MEDS: Potassium Chloride 10 MEQ CAPCR 20 MEQ PO (08:08)
[2020-01-24] MEDS: Insulin NPH-Human 300 UNITS/3 ML PEN 20 UNIT SC (08:08)
[2020-01-24] MEDS: Aspirin E.C. 81 MG TABEC PO (08:10)
[2020-01-24] MEDS: Cyanocobalamin 100 MCG TABLET PO (08:11)
[2020-01-24] MEDS: Tolterodine 2 MG CAPCR 4 MG PO (08:11)
[2020-01-24] MEDS: Docusate Sodium 100 MG CAP PO ×2 (08:11→20:16)
[2020-01-24] MEDS: dilTIAZem CD 120 MG CAPCR 240 MG PO (08:11)
[2020-01-24] MEDS: Citalopram 20 MG TAB 40 MG PO (08:11)
[2020-01-24] MEDS: metFORMIN 500 MG TAB 1000 MG PO ×2 (08:11→16:54)
[2020-01-24] MEDS: Senna TAB 1 TAB PO ×2 (08:11→20:16)
[2020-01-24] MEDS: Folic Acid 1 MG TAB PO (08:12)
[2020-01-24] MEDS: Normal Saline Flush 10 ML SYR 20 ML IVP ×2 (08:12→20:17)
[2020-01-24] MEDS: Furosemide 20 MG TAB PO ×2 (08:12→16:08)
[2020-01-24] MEDS: Amiodarone 200 MG TAB PO ×2 (08:12→20:16)
[2020-01-24] MEDS: Apixaban 5 MG TAB PO ×2 (08:12→20:16)
[2020-01-24] MEDS: Nystatin POWDER 60 GM JAR TP ×3 (08:14→20:16)
--- NOTE | 2020-01-24 10:34 | PT.INTREAT ---
Date of service: 01/24/20 Time of Service: 10:34 PT Notes Visit Reasons: STREP BACTEREMIA 01/24/2020 SUBJECTIVE: Marlen stating that her throat is very sore today and she feels she has sores in her mouth. This is making it difficult for her to eat. She is fatigued today. OBJECTIVE: [id number] TRANSFERS SIt to stand: CGA Stand to sit: CGA GAIT Device: FWW Weight bearing: Full Assist: CGA Distance: 200' Deviation: 4 L NC, wheel chair follow and 2 rest breaks required. THEREX: Defer due to pt's fatigue level and throat discomfort. ASSESSMENT: Does appear more fatigued today and requires several sit rest breaks during our treatment. She continually complains of throat soreness. PLAN: Continue current POC. Treatment time: 20 minutes Nubia Jensen PTA Clinic location: [facility] [place], [place]
--- NOTE | 2020-01-24 10:40 | WOUNDCONS_ITS ---
- If Service Date Differs Date of service: 01/24/20 Time of Service: 10:40 Wound Initial Evaluation Narrative: this a follow up to a wound consult that was performed by the [facility] team last week. Patients H&P, allergies, Labs and other data were reviewed, and patient consented to the follow up. Patient stated that the injury to the left calf has been ongoing for up to a year. there is rafael blood in the base of the wound, with granulation noted, and a significant decrease in the amount of slough noted in the base of the wound. Wound is still very sensitive to touch, and patient declined rock d/t pain in the extremity. - Wound Left Posterior Calf Wound Type: Statis Ulcer Wound General Appearance: Draining, Bleeding, Healing Well Wound Bed Greatest Portion: Red (Granulation) Wound Bed Lesser Portion: Yellow (Slough) Wound Surrounding Tissue Appearance: [place] Percent of Wound Bed Granulated/Red: 90 Percent of Wound Bed Slough/Yellow: 10 Wound Length: 3.2 cm Wound Width: 1.3 cm Wound Depth: 0.1 cm Wound Drainage Amount: Moderate (with debridement) Wound Drainage Odor: None/Absent Wound Drainage Description: Bloody Wound Topical Solution/Irrigant: Saline Irrigant Wound Debridement Method: Mechanical Wound Debridement Result: Healthy Tissue Revealed, Yellow Sloughing Remains Wound Debridement Amount of Tissue Removed: Minimal Left Great toe Wound Type: Other (blister) Wound General Appearance: Clean/Dry, Healing Well Wound Bed Greatest Portion: Pale [place] Percent of Wound Bed Granulated/Red: 100 Percent of Wound Bed Slough/Yellow: 0 Wound Length: 0.6 cm Wound Width: 1.2 cm Wound Depth: 0.1 cm (less than) Wound Drainage Odor: None/Absent Wound Drainage Description: No drainage Wound Topical Solution/Irrigant: Saline Irrigant Wound Debridement Method: Mechanical Wound Debridement Result: Healthy Tissue Revealed Wound Debridement Amount of Tissue Removed: None - Circulation, Sensation, Motion Edema Degree: 2+ Peripheral Pulse Strength: Weak (present bilaterally equally weak) Capillary Refill: Less than 3 seconds Skin Temperature: Warm Skin Color: [place] - ROCK Comment:: refused ROCK D/T pain - Pain Pain Level: 6 (with debridement) Pain Scale Used: Visual Analog Scale 0-10 Pain Description: Sharp Pain Duration/Frequency: With Palpation Wound bed shows sharp improvement when compared to the picture taken last week. While pain noted with debridement patient is tolerating treatment and compression applied with the carlton wrap. - Treatment/Dressing Change Topicals/Ointments: None Cleanse With: Saline Dressing Types: Elastic Bandage, Other (polymem) - Recomendation Recomendation:: Continue current ordered treatment for another week. Physcian/Nurse Practioner Notified: Yes () Treatment Time - Time Total Time Spent with Patient: 30 minutes - Patient Will be Seen Weekly Treatment: daily - For: For:: 1 week
[2020-01-24] MEDS: traMADol 50 MG TAB PO ×2 (11:12→22:18)
[2020-01-24 16:01] VITALS: BP 109/63; PULSE 68; RESP 18; TEMP 36.4; O2SAT 97
[2020-01-24] MEDS: Normal Saline Flush 10 ML SYR IVP (16:09)
[2020-01-24] MEDS: cefTRIAXone 2 GM/50 ML BAG IVPB (16:09)
[2020-01-24] MEDS: Metoprolol 25 MG TAB PO (20:16)
[2020-01-24] MEDS: Insulin Glargine 300 UNITS/3 ML PEN 15 UNITS SC (21:59)
[2020-01-24 23:18] VITALS: BP 107/67; PULSE 72; RESP 19; TEMP 36.1; O2SAT 98
[2020-01-25] MEDS: Levothyroxine 25 MCG TAB 37.5 MCG PO (06:31)
[2020-01-25] MEDS: CLINDAMYCIN 900 MG/50 ML BAG 50 MG IVPB ×3 (06:32→22:14)
[2020-01-25] MEDS: Normal Saline Flush 10 ML SYR IVP ×2 (06:32→16:11)
[2020-01-25] MEDS: Budesonide/Formoterol 160/4.5 6 GM 60 PUFF INH IH ×2 (07:36→20:08)
[2020-01-25] MEDS: Tiotropium Bromide-Respimat 10 PUFF INH IH (07:36)
[2020-01-25 07:45] VITALS: BP 115/70; PULSE 64; RESP 18; TEMP 36; O2SAT 97
[2020-01-25] MEDS: Normal Saline Flush 10 ML SYR 20 ML IVP ×2 (08:06→20:09)
[2020-01-25] MEDS: Nystatin POWDER 60 GM JAR TP ×3 (08:06→20:10)
[2020-01-25] MEDS: Insulin Aspart 300 UNITS/3 ML PEN SC ×3 (08:06→17:01)
[2020-01-25] MEDS: Insulin NPH-Human 300 UNITS/3 ML PEN 10 UNIT SC (08:08)
[2020-01-25] MEDS: Potassium Chloride 10 MEQ CAPCR 20 MEQ PO (08:08)
[2020-01-25] MEDS: Aspirin E.C. 81 MG TABEC PO (08:09)
[2020-01-25] MEDS: Tolterodine 2 MG CAPCR 4 MG PO (08:09)
[2020-01-25] MEDS: Cyanocobalamin 100 MCG TABLET PO (08:09)
[2020-01-25] MEDS: dilTIAZem CD 120 MG CAPCR 240 MG PO (08:09)
[2020-01-25] MEDS: Metoprolol 25 MG TAB PO ×2 (08:09→20:08)
[2020-01-25] MEDS: Docusate Sodium 100 MG CAP PO ×2 (08:09→20:08)
[2020-01-25] MEDS: Senna TAB 1 TAB PO ×2 (08:10→20:08)
[2020-01-25] MEDS: Amiodarone 200 MG TAB PO ×2 (08:10→20:08)
[2020-01-25] MEDS: metFORMIN 500 MG TAB 1000 MG PO ×2 (08:10→17:06)
[2020-01-25] MEDS: Apixaban 5 MG TAB PO ×2 (08:10→20:08)
[2020-01-25] MEDS: Folic Acid 1 MG TAB PO (08:10)
[2020-01-25] MEDS: Citalopram 20 MG TAB 40 MG PO (08:10)
[2020-01-25] MEDS: Furosemide 20 MG TAB PO ×2 (08:10→16:11)
--- NOTE | 2020-01-25 10:45 | PTTR_ITS ---
Date of service: 01/25/20 Time of Service: 10:45 PT Notes Visit Reasons: STREP BACTEREMIA 01/25/2020 SUBJECTIVE: Marlen stating she is doing okay today. Her throat and mouth continues to be uncomfortable. OBJECTIVE: [id number] TRANSFERS Sit to stand: SBA Stand to sit: SBA GAIT Device: FWW Weight bearing: Full Assist: SBA Distance: 200' Deviation: 1 seated rest break, 4 L NC THEREX: Defer as nursing is present and needing to assist pt with washing. ASSESSMENT: Tolerating ambulation well today with only 1 seated rest break required due to LE fatigue. Pt could benefit from continued physical therapy services to increase her LE strength and endurance. PLAN: Continue per POC. Treatment time: 15 minutes Nubia Jensen PTA Clinic location: [facility] [place], [place]
[2020-01-25] MEDS: traMADol 50 MG TAB PO (14:00)
[2020-01-25 15:16] VITALS: BP 95/60; PULSE 58; RESP 18; TEMP 36.7; O2SAT 98
[2020-01-25] MEDS: cefTRIAXone 2 GM/50 ML BAG IVPB (16:11)
[2020-01-25] MEDS: Insulin Glargine 300 UNITS/3 ML PEN 15 UNITS SC (22:15)
[2020-01-25 23:35] VITALS: BP 103/59; PULSE 63; RESP 18; TEMP 36.9; O2SAT 98
[2020-01-26] MEDS: Levothyroxine 25 MCG TAB 37.5 MCG PO (06:19)
[2020-01-26] MEDS: CLINDAMYCIN 900 MG/50 ML BAG 50 MG IVPB ×3 (06:20→22:01)
[2020-01-26] MEDS: traMADol 50 MG TAB PO (06:39)
[2020-01-26 07:29] VITALS: BP 103/65; PULSE 61; RESP 18; TEMP 36.8; O2SAT 98
[2020-01-26] MEDS: Potassium Chloride 10 MEQ CAPCR 20 MEQ PO (08:02)
[2020-01-26] MEDS: Docusate Sodium 100 MG CAP PO ×2 (08:02→19:51)
[2020-01-26] MEDS: metFORMIN 500 MG TAB 1000 MG PO ×2 (08:03→16:37)
[2020-01-26] MEDS: Cyanocobalamin 100 MCG TABLET PO (08:03)
[2020-01-26] MEDS: Tolterodine 2 MG CAPCR 4 MG PO (08:03)
[2020-01-26] MEDS: Senna TAB 1 TAB PO ×2 (08:04→19:52)
[2020-01-26] MEDS: dilTIAZem CD 120 MG CAPCR 240 MG PO (08:04)
[2020-01-26] MEDS: Metoprolol 25 MG TAB PO ×2 (08:04→19:52)
[2020-01-26] MEDS: Folic Acid 1 MG TAB PO (08:04)
[2020-01-26] MEDS: Furosemide 20 MG TAB PO ×2 (08:05→16:37)
[2020-01-26] MEDS: Apixaban 5 MG TAB PO ×2 (08:05→19:52)
[2020-01-26] MEDS: Citalopram 20 MG TAB 40 MG PO (08:05)
[2020-01-26] MEDS: Amiodarone 200 MG TAB PO ×2 (08:05→19:52)
[2020-01-26] MEDS: Aspirin E.C. 81 MG TABEC PO (08:06)
[2020-01-26] MEDS: Insulin Aspart 300 UNITS/3 ML PEN SC ×3 (08:10→17:18)
[2020-01-26] MEDS: Insulin NPH-Human 300 UNITS/3 ML PEN 10 UNIT SC (08:12)
[2020-01-26] MEDS: Budesonide/Formoterol 160/4.5 6 GM 60 PUFF INH IH ×2 (08:16→19:50)
[2020-01-26] MEDS: Tiotropium Bromide-Respimat 10 PUFF INH IH (08:16)
[2020-01-26] MEDS: Normal Saline Flush 10 ML SYR 20 ML IVP ×2 (09:22→19:51)
[2020-01-26] MEDS: Nystatin POWDER 60 GM JAR TP ×3 (10:32→19:51)
--- NOTE | 2020-01-26 11:08 | W.NUTRFU ---
Date of service: 01/26/20 Time of Service: 11:08 Nutritional Follow up NOTE: Marlen remains on Diabetic Diet with excellent intake. Meeting nutrient and fluid needs by mouth. Not at nutritional risk. Will continue to follow. Time Spent in Nutritional Counseling and Treatment: 0
--- NOTE | 2020-01-26 11:22 | CMPROGNOTE_ITS ---
- If Service Date Differs Date of service: 01/26/20 Time of Service: 11:22 Care Management Progress Note S/O: Marlen was sitting up in her chair when CM met with her today. She reported that she had an uneventful weekend, and she is very pleased with the care she is receiving at [facility]. CM discussed her discharge plan, which is for her to receive her last dose of abx on 01/29/20 at 10am. She will then return to the [facility], around 11:30 am. CM to coordinate [facility] w/c van transportation. CM called the [facility] to update them and discuss discharge. The [facility] requested early discharge, before lunch if possible. CM will continue to follow. A: Marlen is a 69 year old female admitted to [facility] on 01/14/20 with PNA, Cellulitis. P: Marlen will remain in B 1 to complete her IV abx course. She will remain at [facility] through her last dose, which is expected to be 01/29/20. She will return to the [facility] following her abx treatment. She will transport via [facility] w/c van, coordinated by CM. CM will continue to follow and support discharge planning considerations.
--- NOTE | 2020-01-26 11:22 | PDOC.CMPRO ---
- If Service Date Differs Date of service: 01/26/20 Time of Service: 11:22 Care Management Progress Note S/O: Marlen was sitting up in her chair when CM met with her today. She reported that she had an uneventful weekend, and she is very pleased with the care she is receiving at [facility]. CM discussed her discharge plan, which is for her to receive her last dose of abx on 01/29/20 at 10am. She will then return to the [facility], around 11:30 am. CM to coordinate [facility] [[email or web address] w/c van transportation. CM called the [facility] to update them and discuss discharge. The [facility] requested early discharge, before lunch if possible. CM will continue to follow. A: Marlen is a 69 year old female admitted to [facility] on 01/14/20 with PNA, Cellulitis. P: Marlen will remain in B 1 to complete her IV abx course. She will remain at [facility] through her last dose, which is expected to be 01/29/20. She will return to the [facility] following her abx treatment. She will transport via [facility] w/[facility] van, coordinated by CM. CM will continue to follow and support discharge planning considerations.
[2020-01-26] MEDS: cefTRIAXone 2 GM/50 ML BAG IVPB (13:56)
[2020-01-26] MEDS: Normal Saline Flush 10 ML SYR IVP ×2 (14:29→22:04)
--- NOTE | 2020-01-26 15:26 | CHAPLAIN ---
Marlen was sitting up in the chair when I visited. She didn't remember me from last week. She said she expects to return to the [facility] on unless it is determined that she needs another six weeks of IV antibiotics that the [facility] can't administer. Marlen thinks she'll hear today if that is the case. She shared some personal history, telling me about all the places she's lived, [place], [place], [facility], [place], [place].
[2020-01-26 15:32] VITALS: BP 101/51; PULSE 63; RESP 18; TEMP 37.2; O2SAT 99
--- NOTE | 2020-01-26 15:54 | PT.INTREAT ---
Date of service: 01/26/20 Time of Service: 11:30 PT Notes Visit Reasons: STREP BACTEREMIA Inpatient Physical Therapy Treatment Note [facility] Date: 01/26/2020 PRECAUTIONS: Fall SUBJECTIVE: Marlen reports that she is feeling a little better than yesterday, although continues to have stiff and sore lower extremities. OBJECTIVE: PAIN: Patient complained of soreness in the LE with gait training BED MOBILITY/TRANSFERS Sit-stand: S Stand-sit: SBA GAIT Assistive Device: FWW Weight bearing: Full Assist: SBA Distance: 100' Deviation: 4L O2 via NC, complained of B LE stiffness, soreness, and weakness THEREX: Patient was instructed in a lower extremity and resisted upper extremity strengthening program, in a seated position, as per flow sheet. She utilized 3#dumbbells with upper extremity exercises. ASSESSMENT: Patient tolerated session with complaint of increased soreness in B LE with gait training. She would benefit from continued global strengthening as well as gait training for improved mobility and continued progression towards baseline level of function. PLAN: Continue with global strengthening and gait training TREATMENT CODE/TIME: 25 minutes; 37702, [id number]
[2020-01-26] MEDS: Insulin Glargine 300 UNITS/3 ML PEN 15 UNITS SC (22:01)
[2020-01-26 23:10] VITALS: BP 106/55; PULSE 64; RESP 20; TEMP 36.1; O2SAT 97
[2020-01-27] MEDS: Normal Saline Flush 10 ML SYR IVP ×3 (00:16→11:53)
[2020-01-27] MEDS: traMADol 50 MG TAB PO ×3 (00:33→22:22)
[2020-01-27] MEDS: Levothyroxine 25 MCG TAB 37.5 MCG PO (05:22)
[2020-01-27] MEDS: CLINDAMYCIN 900 MG/50 ML BAG 50 MG IVPB ×3 (05:22→22:24)
[2020-01-27 07:37] VITALS: BP 112/60; PULSE 62; RESP 15; TEMP 36.3; O2SAT 98
[2020-01-27] MEDS: Budesonide/Formoterol 160/4.5 6 GM 60 PUFF INH IH ×2 (08:29→20:04)
[2020-01-27] MEDS: Tiotropium Bromide-Respimat 10 PUFF INH IH (08:29)
[2020-01-27] MEDS: Aspirin E.C. 81 MG TABEC PO (08:37)
[2020-01-27] MEDS: Cyanocobalamin 100 MCG TABLET PO (08:37)
[2020-01-27] MEDS: Folic Acid 1 MG TAB PO (08:37)
[2020-01-27] MEDS: Docusate Sodium 100 MG CAP PO ×2 (08:37→20:04)
[2020-01-27] MEDS: Tolterodine 2 MG CAPCR 4 MG PO (08:38)
[2020-01-27] MEDS: Metoprolol 25 MG TAB PO ×2 (08:38→20:04)
[2020-01-27] MEDS: dilTIAZem CD 120 MG CAPCR 240 MG PO (08:38)
[2020-01-27] MEDS: Potassium Chloride 10 MEQ CAPCR 20 MEQ PO (08:38)
[2020-01-27] MEDS: Normal Saline Flush 10 ML SYR 20 ML IVP ×2 (08:38→20:04)
[2020-01-27] MEDS: Furosemide 20 MG TAB PO ×2 (08:38→17:05)
[2020-01-27] MEDS: metFORMIN 500 MG TAB 1000 MG PO ×2 (08:38→17:04)
[2020-01-27] MEDS: Apixaban 5 MG TAB PO ×2 (08:38→20:04)
[2020-01-27] MEDS: Amiodarone 200 MG TAB PO ×2 (08:38→20:04)
[2020-01-27] MEDS: Insulin Aspart 300 UNITS/3 ML PEN SC ×3 (08:39→17:05)
[2020-01-27] MEDS: Insulin NPH-Human 300 UNITS/3 ML PEN 10 UNIT SC (08:48)
[2020-01-27] MEDS: Senna TAB 1 TAB PO ×2 (09:11→20:04)
[2020-01-27] MEDS: Nystatin POWDER 60 GM JAR TP ×3 (09:24→20:04)
[2020-01-27] MEDS: Citalopram 20 MG TAB 40 MG PO (09:25)
--- NOTE | 2020-01-27 10:26 | PT.INTREAT ---
Date of service: 01/28/20 Time of Service: 10:26 PT Notes Visit Reasons: STREP BACTEREMIA Inpatient Physical Therapy Treatment Note [facility] Date: 01/27/2020 PRECAUTIONS: Fall. Standard. Activity as tolerated. SUBJECTIVE: Complained about B knees being tiff and B legs being in pain with L more painful than the R. [facility] [place] [facility]. OBJECTIVE: PAIN: Complained of soreness in the LE with gait training with 4-5/10. BED MOBILITY LEVELS/TRANSFERS: Rolling supervision Supine to sit supervision Sit to supine supervision Sit to stand supervision Stand to sit supervision Bed to chair supervision Chair to bed supervision GAIT Assistive Device: FWW Weight bearing: Full Assist: SBA Distance: 250 feet Deviation: 4L O2 via NC, complained of B LE stiffness initially but subsided with ambulation activity. Reported mild shortness of breath at end of activity but was able to tolerate seated exercises after about 3-5 minutes of rest. THEREX: Instructed and trained on seated level exercises using 3 lb DB for UE exercises and orange theraband for LE exercises with intermittent deep breathing exercises: 1. Seated LAQs x 15 with TB around thighs 2. Seated hip fexion x 15 with TB around thighs 3. Seated hip abduction x 15 with TB around distal legs 4. Alternate punch ups x 10 5. Alternate punch outs x 10 6. Alternate elbow flexion and extension ASSESSMENT: Shortness of breath subsided with rest. No undue fatigue with today's activity. Also rewrapped FLORI wraps in B legs to minimize pain. Nurse Sagar aware. Progressing well. PLAN: Progress mobility ADL level with FWW and strength level. TREATMENT CODE/TIME: 30623 x 25 minutes, 50442 x 14 minutes beginning at 10:26 AM.
[2020-01-27] MEDS: Acetaminophen 325 MG TAB 650 MG PO (10:41)
[2020-01-27] MEDS: cefTRIAXone 2 GM/50 ML BAG IVPB (11:52)
[2020-01-27 15:18] VITALS: BP 108/56; PULSE 59; RESP 14; TEMP 35.7; O2SAT 98
[2020-01-27] MEDS: Insulin Glargine 300 UNITS/3 ML PEN 10 UNITS SC (22:23)
[2020-01-27 23:20] VITALS: BP 108/64; PULSE 70; RESP 18; TEMP 36.8; O2SAT 98
[2020-01-28] MEDS: CLINDAMYCIN 900 MG/50 ML BAG 50 MG IVPB ×3 (06:29→21:04)
[2020-01-28] MEDS: Levothyroxine 25 MCG TAB 37.5 MCG PO (06:29)
[2020-01-28 07:30] VITALS: BP 131/69; PULSE 63; RESP 18; TEMP 36.2; O2SAT 98
[2020-01-28] MEDS: Budesonide/Formoterol 160/4.5 6 GM 60 PUFF INH IH ×2 (07:53→19:47)
[2020-01-28] MEDS: Tiotropium Bromide-Respimat 10 PUFF INH IH (07:53)
[2020-01-28] MEDS: Normal Saline Flush 10 ML SYR 20 ML IVP ×2 (08:27→19:49)
[2020-01-28] MEDS: Nystatin POWDER 60 GM JAR TP ×3 (08:28→19:52)
[2020-01-28] MEDS: Insulin Aspart 300 UNITS/3 ML PEN SC ×5 (08:28→17:31)
[2020-01-28] MEDS: metFORMIN 500 MG TAB 1000 MG PO ×2 (08:30→17:02)
[2020-01-28] MEDS: dilTIAZem CD 120 MG CAPCR 240 MG PO (08:30)
[2020-01-28] MEDS: Tolterodine 2 MG CAPCR 4 MG PO (08:30)
[2020-01-28] MEDS: Potassium Chloride 10 MEQ CAPCR 20 MEQ PO (08:30)
[2020-01-28] MEDS: Aspirin E.C. 81 MG TABEC PO (08:31)
[2020-01-28] MEDS: Folic Acid 1 MG TAB PO (08:31)
[2020-01-28] MEDS: Apixaban 5 MG TAB PO ×2 (08:31→19:48)
[2020-01-28] MEDS: Senna TAB 1 TAB PO ×2 (08:31→19:48)
[2020-01-28] MEDS: Citalopram 20 MG TAB 40 MG PO (08:31)
[2020-01-28] MEDS: Cyanocobalamin 100 MCG TABLET PO (08:31)
[2020-01-28] MEDS: Docusate Sodium 100 MG CAP PO ×2 (08:31→19:48)
[2020-01-28] MEDS: Metoprolol 25 MG TAB PO ×2 (08:31→19:48)
[2020-01-28] MEDS: Furosemide 20 MG TAB PO ×2 (08:32→17:02)
[2020-01-28] MEDS: Amiodarone 200 MG TAB PO ×2 (08:32→19:48)
[2020-01-28 09:20] LABS: COVID-19 RT-PCR UVMMC Result Negative (Negative)
[2020-01-28] MEDS: Normal Saline Flush 10 ML SYR IVP (09:47)
[2020-01-28] MEDS: cefTRIAXone 2 GM/50 ML BAG IVPB (09:47)
--- NOTE | 2020-01-28 10:19 | DSE_ITS ---
Date of service: 01/29/20 Time of Service: 16:12 DS: Diagnosis Discharge Diagnosis (1) Streptococcal bacteremia: Status: Acute (2) Type 2 diabetes mellitus: Status: Acute (3) CHF (congestive heart failure): Status: Acute (4) Acute on chronic respiratory failure with hypoxia and hypercapnia: Status: Resolved (5) Cellulitis: Status: Acute Discharge Plan Disposition Patient Disposition: SNF (LEVEL 1) [facility] Condition: Improving Discharge Details Reason For Visit: STREP BACTEREMIA Admit Date/Time: 01/21/20 12:55 Admit Provider: Navin Davidson Attending Provider: Navin Davidson Primary Care Provider: Unknown,Unknown Hospital Course Hospital Course: This is a 69 year old female from the [facility] who has a history of diabetes mellitus type II, 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 In the ED, her work up concerning for pneu monia. She was started on empiric antibiotics (vancomycin, ceftriaxone; she is allergic to penicillins). Her UA was negative; blood cultures are pending. She was noted to have cellulitis of the LLE/ankle dorsum of foot. Blood culture grew Group A strep. Rocephin continued. Vancomycin d/c'd. Clindamycin initiated. Echocardiogram showed Mildly dilated left ventricular with normal EF of 60%. M ild aortic stenosis otherwise valves were normal. MRI of LLE w/o evidence of osteomyelitis. She received agressive diuresis and the LE edema improved. Her cellulitis also showed resolution. FLORI wrap to the left ankle employed. Initially, for COPD exacerbation and acute on chronic resp failure with hypoxemia and hypercapnia, IV steroids used. She was subsequently changed to po prednisone, then steroids stopped. Her WBC count improved and was 13.95 on last check on 01/21, thought to be elevated d/t steroid use. She completed the IV antibiotics for a total of 14 days to treat her bacteremia. She reports feeling back to baseline. No ongoing respiratory symptoms, hemodynamically stable with no fevers. She has had no abdominal pain or nausea. she is tolerating a regular diet. plan is for discharge to the [facility] on level 1 rehab today. Her kebede will be discontinued prior to discharge. she should be observed for signs of urinary retention. discharge plan discussed with DR Mayfield. Home Meds and New Rx's Prescriptions: Continued aspirin 81 mg Tablet,Delayed Release (Dr/Ec) 81 mg PO QAM RF: 0 citalopram 40 mg tablet 40 mg PO QAM RF: 0 diltiazem HCl [DILT-XR] 240 mg capsule,ext.rel 24h degradable 240 mg PO QAM RF: 0 folic acid 1 mg Tablet 1 mg PO QAM RF: 0 omeprazole 40 mg capsule,delayed release(DR/EC) 40 mg PO QAM RF: 0 Spiriva Respimat 2.5 mcg/actuation mist 1 inh INHALATION DAILY RF: 0 tolterodine 4 mg capsule,extended release 24hr 4 mg PO QAM RF: 0 cyanocobalamin (vitamin B-12) [Vitamin B-12] 100 mcg Tablet 100 mcg PO QAM RF: 0 amiodarone 200 mg tablet 200 mg PO BID RF: 0 budesonide-formoterol [Symbicort] 160-4.5 mcg/actuation HFA aerosol inhaler 2 inh INHALATION BID RF: 0 Eliquis 5 mg tablet 5 mg PO BID RF: 0 metoprolol tartrate 25 mg tablet 25 mg PO BID RF: 0 levothyroxine 75 mcg Tablet 37.5 mcg PO QAM RF: 0 furosemide [Lasix] 20 mg Tablet 20 mg PO BID RF: 0 albuterol sulfate 90 mcg/actuation HFA aerosol inhaler 2 inh INHALATION Q4H PRNRF: 0 tramadol 50 mg Tablet 50 mg PO QID PRNRF: 0 triamcinolone acetonide 0.5 % cream 1 applic TOPICAL BID PRNRF: 0 acetaminophen [Tylenol] 325 mg Tablet 650 mg PO Q4H PRNRF: 0 sodium chloride [Saline Nasal Mist] 0.65 % Aerosol,[place] 2 spray INTRANASAL Q2H PRNRF: 0 Saline Nasal (aloe vera) Gel 1 applic intranasal TID PRNRF: 0 epinephrine 0.3 mg/0.3 mL Auto-Injector 0.3 mg IM PRN PRNRF: 0 polyethylene glycol 3350 [Miralax] 17 gram/dose Powder 17 g PO DIRECTED RF: 0 metformin [Glucophage] 1,000 mg Tablet 1,000 mg PO BID RF: 0 glyburide 5 mg tablet 5 mg PO BID RF: 0 celecoxib 200 mg capsule 200 mg PO BID RF: 0 Discharge Instructions Instructions: Bacteremia (DC) Additional Instructions: resume usual medications as directed. drink at least 6-8 glasses daily to stay well hydrated. Stand Alone Forms: Nursing Discharge Form Referrals: Unknown,Unknown [Primary Care Provider] - (pcp follow up on discharge) Activity:: Activity as Tolerated Equipment/Supplies:: No Equipment Needed Diet:: Carb Counting Discharge Orders Discharge Orders: Discharge Order (Routine); Ordered 01/29/20 Ordered By: Shalini George Discharge Data Discharge Date/Time-TO BE ENTERED AT DEPARTURE: 01/29/20 11:50 DS: Summary Status at Discharge Functional status at discharge: uses cane/walker Overall status at discharge: patient is progressing back to baseline Mental Status: mental status grossly normal Speech and Movement: speech and movement normal Mood: congruent mood Affect: normal affect Exam Const General: cooperative and no acute distress Nutritional Appearance: obese Orientation: alert and oriented x3 Eyes Sclera: sclerae normal Pupils: PERRL Resp Effort & Inspection: normal respiratory effort Auscultation: clear to auscultation bilaterally and diminished lung sounds Cardio Rate: regular rate Rhythm: regular rhythm Heart Sounds: S1 normal and S2 normal GI Palpation: soft and nontender Auscultation: normal bowel sounds Extrem General: no calf tenderness and edema (LLE with edema / 1+.) Psych Mental Status: mental status grossly normal Speech and Movement: speech and movement normal Mood: congruent mood Affect: normal affect DS: Data Vitals/I&O Vitals and I&O: Vital Signs Temperature 36.2 C L 01/28/20 07:30 Temperature Source Temporal Artery Scan 01/28/20 07:30 Pulse 63 01/28/20 07:30 Pulse Rhythm Regular 01/28/20 09:04 Respiratory Rate 18 01/28/20 07:30 Respiratory Effort Non-Labored 01/28/20 09:04 Respiratory Depth Normal 01/28/20 09:04 Respiratory Pattern Normal 01/28/20 09:04 Blood Pressure 131/69 01/28/20 07:30 Pulse Oximetry 98 01/28/20 07:30 Oxygen Delivery Method Nasal Cannula 01/28/20 07:30 Oxygen Flow Rate 4 01/28/20 07:30 Pain Level 0 01/27/20 23:20 Comment 01/27/20 15:18 Intake & Output 01/27/20 01/27/20 01/28/20 11:59 23:59 11:59 Intake Total 310 / 940 630 / 940 240 / 240 Output Total 1300 / 3150 1850 / 3150 Balance -990 / -2210 -1220 / -2210 240 / 240 Weight 131.8 kg 131.1 kg Intake: IV 70 / 220 150 / 220 Oral 240 / 720 480 / 720 240 / 240 Output: Urine 1300 / 3150 1850 / 3150 Other: Urine Color Light [place] Yellow Fish Urine Appearance Clear Hematuria Hematuria Comment urine in tubing yellow, bag is pink/fish blood saw in line, urine collected was clear Stool Size Moderate Stool Characteristics Soft Formed Data Completed and Pending Labs on day of discharge: Labs from last 24 hours 01/27/20 07:35 COVID-19 PCR Negative Nasopharyn COVID-19 PCR Not Applicable Ref Test Perform Site [facility] Medical History Arthritis Atrial fibrillation Cellulitis bilateral lower extremities CHF (congestive heart failure) Chronic respiratory failure with hypoxia COPD (chronic obstructive pulmonary disease) Diabetes mellitus Family history unobtainable due to patient's condition GERD (gastroesophageal reflux disease) Hypercholesterolemia Mood disorder Muscle weakness (generalized) Obesity Plaque psoriasis Type 2 diabetes mellitus Surgical History H/O hand surgery right index finger removal of tendon sheath ganglion H/O: hysterectomy History of carpal tunnel surgery of right wrist History of excision of lesion abdominal cyst removed S/P appendectomy Family History Father Heart disease 2 LA, at 62 Mother Heart disease Social History Smoking/Tobacco Use Status: Unknown Smoking risk assessment performed?: Yes
[2020-01-28 11:06] LABS: Abs Immature Grans 0.09 10^3/uL (0.0-0.06); Absolute Basophil Count 0.03 10^3/uL (0.0-0.2); Absolute Eosinophil Count 0.33 10^3/uL (0.0-0.7); Absolute Lymphocyte Count 1.83 10^3/uL (1.2-3.4); Basophils % 0.4; Eosinophils % 4.5; HCT 28.3 % (36.0-46.0); Immature Grans % 1.2; Lymphocytes % 24.8; MCH 24.5 pg (27.0-33.0); MCHC 28.3 % (32.0-36.0); MCV 86.5 fL (80-95); MPV 9.2 fL (8.0-11.0); Monocytes % 9.5; Neutrophils % 59.6; Nucleated RBC 0 %; Platelet Count 290 10^3/uL (130-400); RBC 3.27 10^6/uL (3.93-5.22); RDW 18.5 % (11.7-14.6); RDW-SD 59.1 fL; WBC 7.38 10^3/uL (4.4-10.8)
[2020-01-28 11:13] LABS: Anion Gap 7.8 mmol/L (3-11); BUN 10 mg/dL (7-18); CO2 36.2 mmol/L (21.0-32.0); Calcium 8.8 mg/dL (8.5-10.1); Chloride 94 mmol/L (98-107); Glucose 163 mg/dL (74-106); Potassium 3.9 mmol/L (3.5-5.1); Sodium 138 mmol/L (136-145)
[2020-01-28 11:27] LABS: Anisocytosis 2+; Diff Comment RBC Morph Reviewed; Hypochromasia 2+; Macrocytosis 1+
[2020-01-28 11:28] LABS: Poikilocytes 1+; Polychromasia Present; Stomatocytes 2+
[2020-01-28 15:08] VITALS: BP 101/66; PULSE 60; RESP 19; TEMP 36.7; O2SAT 98
--- NOTE | 2020-01-28 15:38 | PT.INTREAT ---
Date of service: 01/28/20 Time of Service: 11:30 PT Notes Visit Reasons: STREP BACTEREMIA Inpatient Physical Therapy Treatment Note [facility] Date: 01/28/2020 PRECAUTIONS: Fall SUBJECTIVE: Marlen states that she is very tired today, and that she would like to hold on walking today. She is agreeable to chair-level exercises. OBJECTIVE: PAIN: No c/o pain BED MOBILITY/TRANSFERS/GAIT: Refused THEREX: Patient was instructed in a resisted UE and LE strengthening program, completed in a seated position, as per flow sheet. She utilizes 3# dumbbells for UE exercise completion and orange Theraband for LE exercise completion. She tolerated a progression in her ther ex program, tolerating increased reps for each exercise. ASSESSMENT: Patient was able to tolerate a progression in her ther ex program, tolerating increased reps. She would benefit from continued gait training and global strengthening for improved mobility and continued progression towards baseline level of function. PLAN: Continue with gait and stair trainin TREATMENT CODE/TIME: 15 minutes; [id number]
[2020-01-28] MEDS: Insulin Glargine 300 UNITS/3 ML PEN 10 UNITS SC (21:06)
[2020-01-28] MEDS: traMADol 50 MG TAB PO (22:56)
[2020-01-28 23:35] VITALS: BP 110/58; PULSE 65; RESP 17; TEMP 37.1; O2SAT 99
[2020-01-29] MEDS: Levothyroxine 25 MCG TAB 37.5 MCG PO (05:36)
[2020-01-29] MEDS: Normal Saline Flush 10 ML SYR IVP (05:37)
[2020-01-29] MEDS: CLINDAMYCIN 900 MG/50 ML BAG 50 MG IVPB (05:37)
[2020-01-29 07:38] VITALS: BP 133/55; PULSE 64; RESP 16; TEMP 36.7; O2SAT 98
[2020-01-29] MEDS: Tiotropium Bromide-Respimat 10 PUFF INH IH (07:57)
[2020-01-29] MEDS: Budesonide/Formoterol 160/4.5 6 GM 60 PUFF INH IH (07:57)
[2020-01-29] MEDS: Insulin Aspart 300 UNITS/3 ML PEN SC ×2 (08:09)
[2020-01-29] MEDS: Senna TAB 1 TAB PO (08:10)
[2020-01-29] MEDS: Metoprolol 25 MG TAB PO (08:10)
[2020-01-29] MEDS: Apixaban 5 MG TAB PO (08:10)
[2020-01-29] MEDS: Nystatin POWDER 60 GM JAR TP (08:10)
[2020-01-29] MEDS: Furosemide 20 MG TAB PO (08:11)
[2020-01-29] MEDS: Citalopram 20 MG TAB 40 MG PO (08:11)
[2020-01-29] MEDS: Potassium Chloride 10 MEQ CAPCR 20 MEQ PO (08:11)
[2020-01-29] MEDS: dilTIAZem CD 120 MG CAPCR 240 MG PO (08:11)
[2020-01-29] MEDS: Folic Acid 1 MG TAB PO (08:11)
[2020-01-29] MEDS: Aspirin E.C. 81 MG TABEC PO (08:11)
[2020-01-29] MEDS: metFORMIN 500 MG TAB 1000 MG PO (08:11)
[2020-01-29] MEDS: Tolterodine 2 MG CAPCR 4 MG PO (08:12)
[2020-01-29] MEDS: Cyanocobalamin 100 MCG TABLET PO (08:12)
[2020-01-29] MEDS: Docusate Sodium 100 MG CAP PO (08:12)
[2020-01-29] MEDS: Amiodarone 200 MG TAB PO (08:12)
[2020-01-29] MEDS: Normal Saline Flush 10 ML SYR 20 ML IVP (08:13)
[2020-01-29] MEDS: cefTRIAXone 2 GM/50 ML BAG IVPB (09:23)
--- NOTE | 2020-01-30 13:04 | INDS_ITS ---
Date of service: 01/30/20 Time of Service: 13:04 PT Notes Visit Reasons: STREP BACTEREMIA Physical Therapy Inpatient Discharge Summary Date: 01/30/20 Dates of Service: 01/22/2020 through 01/28/2020 This is a clinical summary of care provided on the duration of dates listed above. No charge was made in the completion of this documentation. Referring Doctor: Navin Davidson MD PT Orders: PT CONSULT: extended stay- weakness Precautions: Fall. Standard. Activity as tolearted. Patient Profile/Admitting Diagnosis: Marlen converted to swing bed level 1 as of 01/22/2020 and is re-evalauted today for continued physical therapy services. Patient admitted 01/14/20 from the [facility]. She was diagnosed with sepsis, pneumonia, and cellulitis. PMHX: Medical History Arthritis Atrial fibrillation Cellulitis bilateral lower extremities CHF (congestive heart failure) Chronic respiratory failure with hypoxia COPD (chronic obstructive pulmonary disease) Diabetes mellitus Family history unobtainable due to patient's condition GERD (gastroesophageal reflux disease) Hypercholesterolemia Mood disorder Muscle weakness (generalized) Obesity Plaque psoriasis Type 2 diabetes mellitus Surgical History H/O hand surgery right index finger removal of tendon sheath ganglion H/O: hysterectomy History of carpal tunnel surgery of right wrist History of excision of lesion abdominal cyst removed S/P appendectomy Social History/Home Situation: Patient is a residence of the [facility]. 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 States that she's had multiple falls, estimating about 7 in the past year. She typically ambulates short distances with a FWW, stating she was able to walk about 10 feet with nursing yesterday, which she states felt great. She uses a wheel chair for longer distances. Equipment Owned/DME: FWW, wheelchair, resident of LTC facility Subjective: NT. See most recent ASSISTANT PROFESSOR OF ANTHROPOLOGY notes. Objective: General Observation: NT. See most recent ASSISTANT PROFESSOR OF ANTHROPOLOGY notes. Mental Status: NT. See most recent ASSISTANT PROFESSOR OF ANTHROPOLOGY notes. Pain: NT. See most recent ASSISTANT PROFESSOR OF ANTHROPOLOGY notes. Vital Signs: NT. See most recent ASSISTANT PROFESSOR OF ANTHROPOLOGY notes. ROM: Right Upper Extremity: WFL Left Upper Extremity: WFL Right Lower Extremity: WFL Left Lower Extremity: WFL Strength: Right Upper Extremity: Shoulder flexion 4/5. Biceps 4+/5. Triceps 4/5. Alarm Investigator strong and equal. Left Upper Extremity: Shoulder flexion 4/5. Biceps 4+/5. Triceps 4/5. Alarm Investigator strong and equal. Right Lower Extremity: Hip flexion 3-/5. Quads 4/5. Ankle DF 4/5. Left Lower Extremity: Hip flexion 3-/5. Quads 4/5. Ankle DF 4/5. Bed Mobility/Transfers: Sit to stand supervision Stand to sit supervision Bed to chair supervision Chair to bed supervision Gait: 250 feet using front wheeled walker with full weight bearing requiring onl y standby assist demonstrating reciprocal gait pattern but with decreased josh and decreased step height on the left. O2 supplementation of 4 L/minute. Reported B leg stiffness initially but subsided with activity. Balance: Static Sitting: Normal Dynamic Sitting: Normal Static Standing: Fair Dynamic Standing: Fair Assessment: Marlen has demonstrated functional mobility improvement for this e pisode of care as evidenced by the current mobility level above. She will continue to benefit from PT services at the SNF in order to facilitate return to independent mobility level using the FWW. Goals: Goals X1 week 1. Supine-Sit independent NOT MET 2. Sit-Supine independent NOT MET 3. Sit-Stand independent NOT MET 4. Stand-Sit independent NOT MET 5. Bed-Chair independent NOT MET 6. Chair-Bed independent NOT MET 7. Independent gait on level surface with use of least restrictive device for at least 300 feet without report of pain nor dyspnea NOT MET 8. Good static and dynamic standing balance/tolerance NOT MET DISCHARGE RECOMMENDATIONS: Return to SNF when medically cleared by hospitalist. TREATMENT CODE/TIME: NC. Thank you for the opportunity to participate in the care of this patient. Pily Myrick PT, DPT, CLT [facility] [place], [place]
== END 2020-01-29 11:50 | disposition skilled nursing facility (03) | DRG 871 ==
PROVIDERS: Internal Medicine; Nurse Practitioner Acute Care; Admitting Provider Family Medicine; Visit Provider Family Medicine
DX: R78.81 Bacteremia (principal); J96.22 Acute and chronic respiratory failure with hypercapnia; J96.21 Acute and chronic respiratory failure with hypoxia; L03.116 Cellulitis of left lower limb; Z68.42 Body mass index [BMI] 45.0-49.9, adult; Z99.81 Dependence on supplemental oxygen; I48.91 Unspecified atrial fibrillation; Z79.01 Long term (current) use of anticoagulants; B95.0 Streptococcus, group A, as the cause of diseases classified elsewhere; Z79.4 Long term (current) use of insulin; I50.813 Acute on chronic right heart failure; K21.9 Gastro-esophageal reflux disease without esophagitis; E78.00 Pure hypercholesterolemia, unspecified; E66.9 Obesity, unspecified; L40.0 Psoriasis vulgaris; M62.81 Muscle weakness (generalized); I11.0 Hypertensive heart disease with heart failure
CPT/HCPCS: 36415; 80048; 90662; 94640; 97110; 97162; 97166; 97530; 97535; 99305; 99316; U0003; 85025; 94667; J7512

== ENCOUNTER 2020-02-09 11:17 | Outpatient (REF) | payer SELFPAY ==
[2020-02-09 13:21] LABS: Anion Gap 0.9 mmol/L (3-11); BUN 11 mg/dL (7-18); CO2 36.1 mmol/L (21.0-32.0); CREATININE 0.74 mg/dL (0.55-1.02); Calcium 8.8 mg/dL (8.5-10.1); Chloride 103 mmol/L (98-107); Glucose 121 mg/dL (74-106); Potassium 4.2 mmol/L (3.5-5.1); Sodium 140 mmol/L (136-145)
[2020-02-09 13:44] LABS: Abs Immature Grans 0.06 10^3/uL (0.0-0.06); Absolute Basophil Count 0.05 10^3/uL (0.0-0.2); Absolute Lymphocyte Count 2.46 10^3/uL (1.2-3.4); Absolute Neutrophil Count 3.37 10^3/uL (1.2-6.7); Basophils % 0.7; HCT 30.6 % (36.0-46.0); HGB 8.6 g/dL (11.2-15.7); Immature Grans % 0.8; Lymphocytes % 34.5; MCH 24.5 pg (27.0-33.0); MCHC 28.1 % (32.0-36.0); MCV 87.2 fL (80-95); MPV 9.8 fL (8.0-11.0); Monocytes % 9.8; Neutrophils % 47.2; Nucleated RBC 0 %; Platelet Count 335 10^3/uL (130-400); RBC 3.51 10^6/uL (3.93-5.22); RDW 18.7 % (11.7-14.6); RDW-SD 58.7 fL; WBC 7.14 10^3/uL (4.4-10.8)
== END 2020-02-09 11:37 ==
LOC: NCHCN 11:17
PROVIDERS: Visit Provider Family Medicine
DX: I10 Essential (primary) hypertension (principal); I87.302 Chronic venous hypertension (idiopathic) without complications of left lower extremity; J44.1 Chronic obstructive pulmonary disease with (acute) exacerbation; B95.0 Streptococcus, group A, as the cause of diseases classified elsewhere
CPT/HCPCS: 80048; 85025

== ENCOUNTER 2020-02-19 21:41 | Outpatient (REF) | payer SELFPAY ==
[2020-02-19 16:19] LABS: Anion Gap 4.8 mmol/L (3-11); BUN 12 mg/dL (7-18); CO2 33.2 mmol/L (21.0-32.0); CREATININE 0.73 mg/dL (0.55-1.02); Chloride 100 mmol/L (98-107); Glucose 119 mg/dL (74-106); Potassium 4.2 mmol/L (3.5-5.1); Sodium 138 mmol/L (136-145)
== END 2020-02-19 22:01 ==
LOC: LBN 21:41
PROVIDERS: PCP Family Medicine; Visit Provider Family Medicine
DX: E11.9 Type 2 diabetes mellitus without complications (principal); I50.9 Heart failure, unspecified; I87.302 Chronic venous hypertension (idiopathic) without complications of left lower extremity; J44.1 Chronic obstructive pulmonary disease with (acute) exacerbation
CPT/HCPCS: 80048

== ENCOUNTER 2020-03-07 07:10 | Outpatient (REF) | payer MEDICARE, MEDICAID, SELFPAY ==
[2020-03-07 07:25] LABS: Abs Immature Grans 0.25 10^3/uL (0.0-0.06); HCT 30.8 % (36.0-46.0); HGB 9.4 g/dL (11.2-15.7); MCHC 30.5 % (32.0-36.0); MCV 88.5 fL (80-95); MPV 9.7 fL (8.0-11.0); Nucleated RBC 0 %; RBC 3.48 10^6/uL (3.93-5.22); RDW 20.3 % (11.7-14.6); RDW-SD 66.3 fL; WBC 23.91 10^3/uL (4.4-10.8)
[2020-03-07 07:31] LABS: BUN 32 mg/dL (7-18); CREATININE 1.05 mg/dL (0.55-1.02); Calcium 8.9 mg/dL (8.5-10.1); Estimated GFR 51.66 (mL/min/1.73m2); Glucose 154 mg/dL (74-106)
[2020-03-07 07:50] LABS: Anion Gap 4.4 mmol/L (3-11); CO2 33.6 mmol/L (21.0-32.0); Chloride 97 mmol/L (98-107); Potassium 4.8 mmol/L (3.5-5.1); Sodium 135 mmol/L (136-145)
[2020-03-07 07:58] LABS: Platelet Count 307 10^3/uL (130-400)
[2020-03-07 07:59] LABS: Absolute Eosinophil Count 0.48 10^3/uL (0.0-0.7); Absolute Lymphocyte Count 1.43 10^3/uL (1.2-3.4); Absolute Monocyte Count 0.48 10^3/uL (0.1-0.8); Absolute Neutrophil Count 21.04 10^3/uL (1.2-6.7); Anisocytosis 3+; Bands % 8; Hypochromasia 2+; Metamyelocytes % 2; Microcytosis 1+
[2020-03-07 08:00] LABS: Polychromasia Present
[2020-03-07 08:01] LABS: Diff Comment Manual Differential
== END 2020-03-07 07:30 ==
LOC: LBN 07:10
PROVIDERS: PCP Family Medicine; Visit Provider Family Medicine
DX: L03.116 Cellulitis of left lower limb (principal); I50.9 Heart failure, unspecified; I87.302 Chronic venous hypertension (idiopathic) without complications of left lower extremity; E66.01 Morbid (severe) obesity due to excess calories; M62.81 Muscle weakness (generalized)
CPT/HCPCS: 80048; 85025

== ENCOUNTER 2020-03-07 08:09 | Inpatient (IN) | payer MEDICARE, MEDICAID, SELFPAY ==
--- NOTE | 2020-03-07 | DI.CT_ITS ---
EXAM: CT LOWER EXTREMITY LT W CLINICAL HISTORY: cellulitis, r/o osteo. TECHNIQUE: Imaging Protocol: Axial computed tomography images with coronal and sagittal reformatted images were created and reviewed. CONTRAST MATERIAL: Intravenous: Omnipaque 350 Contrast volume:100 contrast route:IV - Oral: No COMPARISON: MR MR LOWER EXTREMITY LT WO/W from 01/19/2020 MR MR LOWER EXTREMITY LT WO/W from 01/19/2020 FINDINGS: Cutaneous/soft tissues: There is thickening of the skin over the anterior and medial aspect of the le ft thigh. This extends inferiorly beyond the knee into the anterior calf to the lower field of view of this study which is region of the ankle and this extends into the for foot. Subcutaneous edema is noted and this becomes more confluent on the anterior-lateral aspect of left knee and extending down anterior to the patellar ligament. Also noted to be somewhat confluent fluid intensity in the deep anterior calf just anterior to the tibialis anterior muscle. There appears to be a small left knee joint effusion in the lateral aspect of the suprapatellar bursa . There is no heard cyst in the popliteal fossa. There are a few slightly prominent lymph nodes in the ipsilateral groin. Osseous: There is no obvious hip fracture.. No other fractures identified, including the visualized ipsilateral foot and ankle. Degenerative changes in the knee noted almost evident in the medial comp artment. There are no lytic osseous lesions identified on CT scan. IMPRESSION: There is extensive left lower extremity skin thickening and edema which is somewhat confluent in the pretibial region. No fractures nor obvious bone lesions evident. However, please note the abnormal osseous findings on recent MRI scan of 01/19/2020. RADIATION DOSE DELIVERED: 1,020.48mGy.cm Total DLP DATA REPOSITORY: All CT scans at this facility are submitted to the National Radiology Data Registry (NRDR) Dose Index Registry (DIR) with the [employer] ([employer]). RADIATION OPTIMIZATION: All CT scans at this facility use at least one of these dose optimization te chniques: automated exposure control; mA and/or kV adjustment per patient size (includes targeted exa ms where dose is matched to clinical indication); or iterative reconstruction.
[2020-03-07 08:17] VITALS: BP 117/40; PULSE 79; RESP 20; TEMP 37.8; O2SAT 97
--- NOTE | 2020-03-07 08:27 | ED.GENADUL_ITS ---
Discharge Plan Disposition Patient Disposition: [facility] INPATIENT Condition: Serious Discharge Details Chief Complaint: Cellulitis Clinical Impression: Cellulitis of left lower leg Primary Care Provider: Evi Cloud ED Provider: Marcel Hadley [place] Meds and New Rx's Prescriptions: No Action aspirin 81 mg Tablet,Delayed Release (Dr/Ec) 81 mg PO QAM RF: 0 citalopram 40 mg tablet 40 mg PO QAM RF: 0 diltiazem HCl [DILT-XR] 240 mg capsule,ext.rel 24h degradable 240 mg PO QAM RF: 0 folic acid 1 mg Tablet 1 mg PO QAM RF: 0 omeprazole 40 mg capsule,delayed release(DR/EC) 40 mg PO QAM RF: 0 Spiriva Respimat 2.5 mcg/actuation mist 1 inh INHALATION DAILY RF: 0 tolterodine 4 mg capsule,extended release 24hr 4 mg PO QAM RF: 0 cyanocobalamin (vitamin B-12) [Vitamin B-12] 100 mcg Tablet 100 mcg PO QAM RF: 0 amiodarone 200 mg tablet 200 mg PO BID RF: 0 budesonide-formoterol [Symbicort] 160-4.5 mcg/actuation HFA aerosol inhaler 2 inh INHALATION BID RF: 0 Eliquis 5 mg tablet 5 mg PO BID RF: 0 metoprolol tartrate 25 mg tablet 25 mg PO BID RF: 0 levothyroxine 75 mcg Tablet 37.5 mcg PO QAM RF: 0 furosemide [Lasix] 20 mg Tablet 20 mg PO DAILY RF: 0 albuterol sulfate 90 mcg/actuation HFA aerosol inhaler 2 inh INHALATION Q4H PRNRF: 0 tramadol 50 mg Tablet 50 mg PO QID PRNRF: 0 triamcinolone acetonide 0.5 % cream 1 applic TOPICAL BID PRNRF: 0 acetaminophen [Tylenol] 325 mg Tablet 650 mg PO Q4H PRNRF: 0 sodium chloride [Saline Nasal Mist] 0.65 % Aerosol,Raymond 2 spray INTRANASAL Q2H PRNRF: 0 Saline Nasal (aloe vera) Gel 1 applic intranasal TID PRNRF: 0 epinephrine 0.3 mg/0.3 mL Auto-Injector 0.3 mg IM PRN PRNRF: 0 metformin [Glucophage] 1,000 mg Tablet 1,000 mg PO BID RF: 0 celecoxib 200 mg capsule 200 mg PO BID RF: 0 sulfamethoxazole-trimethoprim [Bactrim DS] 800-160 mg Tablet 1 tab PO BID RF: 0 ascorbic acid (vitamin C) [Vitamin C] 500 mg Tablet 500 mg PO BID RF: 0 ferrous sulfate 325 mg (65 mg iron) Tablet 325 mg PO BID RF: 0 hydrocortisone acetate [Javier Dricort] 1 % Cream 1 applic TOPICAL .SUNDAY RF: 0 Eucerin Cream 1 applic TOPICAL BID RF: 0 T Gel Shampoo 1 applic topical .SUNDAY RF: 0 nystatin 100,000 unit/gram powder 1 applic TOPICAL TID RF: 0 Medical Decision Making 69-year-old female with past medical history of diabetes, COPD, obesity, CHF, A. fib, anticoagulation, presents for worsening cellulitis to the left lower leg. She was admitted to our facility on January 13 for a similar presentation and was admitted for over 2 weeks. She states her symptoms have been worsening over the past few days, initiated Bactrim oral therapy this morning around 2:30 AM. She was noted to have a low-grade fever. Denies any headache, chest pain, shortness of breath, abdominal pain, dysuria, diarrhea. CBC and CMP were drawn as an outpatient already today, white blood cell count noted to be 23.91, creatinine 1.05 with a estimated GFR of 51.66. Patient appears ill but not toxic at the moment. Heart rate in the 70s, blood pressure was 117/40. Temperature of 37.8. Will initiate IV access, give 250 cc/h of normal saline, add on a chest x-ray, urinalysis, lactate, blood cultures, and Covid test. Unfortunately, unable to obtain ultrasound today however leg appears clinically to be infected, likely can obtain ultrasound tomorrow if indicated. Reviewing her recent admission it appears as though she screened negative for MRSA, blood cultures grew out Streptococcus. Initially vancomycin had been started but then discontinued for clindamycin. Will initiate 2 g IV Rocephin and contact our hospitalist team for admission. Lactate of 1.1. Urinalysis unremarkable. Chest x-ray one-view portable reviewed by radiology and read as demonstrated left lower lung opacities and possible small left pleural effusion along with cardiomegaly. Findings may represent pneumonia, atelectasis, and/or pulmonary edema. I was able to discuss the case with Dr. Willett recommend adding on vancomycin, obtaining CRP and procalcitonin. Laboratory values were obtained and vancomycin given per pharmacy protocol. Medical Records Medical records reviewed: Yes I reviewed the patient's medical records. Lab Data Lab results reviewed: Yes I reviewed the patient's lab results. Labs: 03/07/20 09:16 Nose MRSA Screen - Pending 03/07/20 09:09 Blood Blood Culture - Pending 03/07/20 08:50 Blood Blood Culture - Pending Laboratory Tests Range/Units 03/07/20 03/07/20 03/07/20 08:40 08:50 09:18 VBG Lactate (0.6-1.4) mmol/L 1.1 C-Reactive Protein (0.0-0.3) mg/dL > 25.00 H Urine Color (Yellow) Yellow Urine Clarity (Clear) Clear Urine pH (5-8) 5.5 Ur Specific Mead (1.005-1.025) 1.020 Urine Protein (Negative) mg/dL Negative Urine Ketones (Negative) mg/dL Negative Urine Blood (Negative) Negative Urine Nitrite (Negative) Negative Urine Bilirubin (Negative) Negative Urine Urobilinogen (Up TO 0.2) EU/dL 0.2 Ur Leukocyte Esterase (Negative) Negative Urine Glucose (Negative) mg/dL Negative HPI General Mode of arrival: EMS . Date/Time Provider Initiated Documentation: 03/07/20 08:24 . Limitations to Documentation: no limitations . Information obtained by: patient and EMS . HPI Narrative: This is a 69-year-old female, full code, who has a past medical history that includes A. fib, anticoagulation, CHF, COPD, O2 dependent at baseline 4 L nasal cannula, diabetes, obesity, presenting for evaluation. She was admitted to our facility on January 13 and subsequently discharged on the . She states that she has been doing well up until the last few days when she noticed left leg swelling, pain, fever. She denies any headache, neck pain, chest pain, shortness of breath abdominal pain, nausea, vomiting, dysuria, diarrhea, weakness or numbness. They initiated a single dose of p.o. Bactrim at 0230 this morning and she had blood work as an outpatient completed. Her white blood cell count was noted to be elevated. Subsequently sent to the ER for further evaluation. Related Data Home Medications Medication Instructions Recorded Confirmed Eliquis 5 mg PO BID 01/14/20 03/07/20 Saline Nasal (aloe vera) 1 applic INTRANASAL TID PRN 01/14/20 03/07/20 Spiriva Respimat 1 inh INHALATION DAILY 01/14/20 03/07/20 acetaminophen [Tylenol] 650 mg PO Q4H PRN 01/14/20 03/07/20 albuterol sulfate 2 inh INHALATION Q4H PRN 01/14/20 03/07/20 amiodarone 200 mg PO BID 01/14/20 03/07/20 aspirin 81 mg PO QAM 01/14/20 03/07/20 budesonide-formoterol [Symbicort] 2 inh INHALATION BID 01/14/20 03/07/20 citalopram 40 mg PO QAM 01/14/20 03/07/20 cyanocobalamin (vitamin B-12) 100 mcg PO QAM 01/14/20 03/07/20 [Vitamin B-12] diltiazem HCl [DILT-XR] 240 mg PO QAM 01/14/20 03/07/20 epinephrine 0.3 mg IM PRN PRN 01/14/20 03/07/20 folic acid 1 mg PO QAM 01/14/20 03/07/20 furosemide [Lasix] 20 mg PO DAILY 01/14/20 03/07/20 levothyroxine 37.5 mcg PO QAM 01/14/20 03/07/20 metformin [Glucophage] 1,000 mg PO BID 01/14/20 03/07/20 metoprolol tartrate 25 mg PO BID 01/14/20 03/07/20 omeprazole 40 mg PO QAM 01/14/20 03/07/20 sodium chloride [Saline Nasal Mist] 2 spray INTRANASAL Q2H PRN 01/14/20 03/07/20 tolterodine 4 mg PO QAM 01/14/20 03/07/20 tramadol 50 mg PO QID PRN 01/14/20 03/07/20 triamcinolone acetonide 1 applic TOPICAL BID PRN 01/14/20 03/07/20 celecoxib 200 mg PO BID 01/23/20 03/07/20 T Gel Shampoo 1 applic TOPICAL .Sunday03/07/20 ascorbic acid (vitamin C) [Vitamin 500 mg PO BID 03/07/20 03/07/20 C] ferrous sulfate 325 mg PO BID 03/07/20 03/07/20 hydrocortisone acetate [Javier 1 applic TOPICAL .Sunday03/07/20 03/07/20 Dricort] lanolin [id number]-a.pet-ceres 1 applic TOPICAL BID 03/07/20 03/07/20 [Eucerin] nystatin 1 applic TOPICAL TID 03/07/20 03/07/20 sulfamethoxazole-trimethoprim 1 tab PO BID 03/07/20 03/07/20 [Bactrim DS] Allergies Allergy/AdvReac Type Severity Reaction Status Date / Time bee venom protein (honey bee) Allergy Unknown Unverified 03/07/20 08:45 Penicillins Allergy Unknown Unverified 03/07/20 08:45 strawberry Allergy Unknown Unverified 03/07/20 08:45 General Stated Complaint: Cellulitis KENDRICK: 2 Review of Systems Constitutional Constitutional: Denies fatigue, Denies fever(s) and Denies headache(s) Eyes Eyes: Denies eye discharge ENT Ears, Nose, Mouth, and Throat: Denies headache(s) and Denies neck pain Cardiovascular Cardiovascular: Denies chest pain and Denies dyspnea Respiratory Respiratory: Denies cough and Denies dyspnea Gastrointestinal Gastrointestinal: Denies abdominal pain, Denies diarrhea, Denies nausea and Denies vomiting Genitourinary Genitourinary: Denies dysuria Musculoskeletal Musculoskeletal: Denies back pain and Denies neck pain Integumentary/Breasts Skin/Breast: Reports erythema Neurologic Neurologic: Denies headache(s) Endocrine Endocrine: Denies fatigue Hematologic/Lymphatic Hematologic/Lymphatic: Reports easy bleeding and Reports easy bruising [facility] Medical History (Updated 03/07/20 @ 09:52 by JOEL Stokes) Acute on chronic respiratory failure with hypoxia and hypercapnia Altered mental status Arthritis Atrial fibrillation Cellulitis bilateral lower extremities Cellulitis CHF (congestive heart failure) Chronic respiratory failure with hypoxia COPD (chronic obstructive pulmonary disease) Diabetes mellitus Family history unobtainable due to patient's condition GERD (gastroesophageal reflux disease) Hypercholesterolemia Mood disorder Muscle weakness (generalized) Obesity Plaque psoriasis Pneumonia Streptococcal bacteremia Toxic metabolic encephalopathy Type 2 diabetes mellitus Surgical History H/O hand surgery right index finger removal of tendon sheath ganglion H/O: hysterectomy History of carpal tunnel surgery of right wrist History of excision of lesion abdominal cyst removed S/P appendectomy Family History Father Heart disease 2 SD, at 62 Mother Heart disease Social History Smoking/Tobacco Use Status: Former Tobacco Use Smoking risk assessment performed?: Yes Alcohol Intake: never Drug use: Never Exam Const General: cooperative and other (Appears uncomfortable. ) Nutritional Appearance: obese Orientation: alert, awake and oriented x3 HENMT Head: normal to inspection, normocephalic and atraumatic Face and sinus: normal facial exam Mouth: moist mucous membranes abnormal (Slightly dry) Eyes General: appearance normal, both eyes and all related structures Conjunctivae: conjunctivae normal Sclera: sclerae normal Neck Neck: normal visual inspection, full ROM, no lymphadenopathy, no meningeal signs, trachea midline, supple and nontender Resp Effort & Inspection: normal respiratory effort and able to speak in complete sentences Auscultation: diminished lung sounds bilaterally (Bases, more so on the left) Cardio Rate: regular rate Rhythm: regular rhythm GI Inspection: obesity Palpation: soft and nontender Auscultation: normal bowel sounds Back/Spine/Pelvis Back: No back tenderness Skin General skin exam: erythema Other: Below breast and the bilateral skin folds, there is diffuse erythema, weeping, tenderness. Neuro General: patient alert, patient awake, moves all extremities and no focal motor deficits Cognition: normal cognition Speech: speech normal Motor: muscle tone normal throughout Sensory Exam: no sensory deficits noted Extrem Right upper extremity: normal to inspection, full ROM and normal capillary refill Left upper extremity: normal to inspection, full ROM and normal capillary refill Right lower extremity: full ROM, normal capillary refill and edema Details: 1+ (Baseline per patient.) Other: The left lower extremity is most impressively circumferentially erythematous, swollen, tender, warm below the knee all the way to the toes however does extend up the leg and to the groin. I am able to feel a pedal pulse and capillary refill does appear to be normal. She does have a couple intact blisters to her lower leg. Psych Appearance: grossly normal Mental Status: mental status grossly normal Course Vital Signs Vital signs: Vital Signs Temperature 37.8 C H 03/07/20 08:17 Pulse 79 03/07/20 08:17 Respiratory Rate 20 03/07/20 08:17 Blood Pressure 117/40 L 03/07/20 08:17 Pulse Oximetry 97 03/07/20 08:17 Temperature 37.8 C H 03/07/20 08:17 Temperature Source Oral 03/07/20 08:17 Pulse 79 03/07/20 08:17 Respiratory Rate 20 03/07/20 08:17 Respiratory Effort Non-Labored 03/07/20 08:21 Blood Pressure 117/40 L 03/07/20 08:17 Blood Pressure Position Supine 03/07/20 08:17 Pulse Oximetry 97 03/07/20 08:17 Oxygen Delivery Method Nasal Cannula 03/07/20 08:17 Oxygen Flow Rate 4 03/07/20 08:17 Pain Level 8 03/07/20 08:17
--- NOTE | 2020-03-07 08:30 | DI.RAD_ITS ---
EXAM: XR PORTABLE CHEST AP CLINICAL HISTORY: cellulitis TECHNIQUE: 2D digital imaging was performed. COMPARISON: CT CT CHEST/ABD/PEL W from 01/14/2020 CR,XR XR LINE PLACEMENT PICC/CVA from 01/18/2020 CR XR PORTABLE CHEST AP from 01/19/2020 CR XR PORTABLE CHEST AP from 01/19/2020 FINDINGS: The exam is limited by patient body habitus and rotation. The heart is again noted to be enlarged, n ot grossly changed. The lungs appear clear where visualized. The left lower lung field is obscured by the cardiac silhouette. There is a prominent epicardial fat pad. IMPRESSION: No acute pulmonary findings. DATA REPOSITORY: RADIATION DOSE DELIVERED:
[2020-03-07 08:47] LABS: Bilirubin Negative (Negative); Blood Negative (Negative); Clarity Clear (Clear); Glucose Negative (Negative); Ketones Negative (Negative); Leukocyte Esterase Negative (Negative); Nitrite Negative (Negative); Urobilinogen 0.2 EU/dL (Up TO 0.2); pH 5.5 (5-8)
[2020-03-07 09:21] LABS: Lactate 1.1 mmol/L (0.6-1.4)
[2020-03-07 09:42] LABS: C-Reactive Protein > 25.00 mg/dL (0.0-0.3)
[2020-03-07] MEDS: cefTRIAXone 2 GM/50 ML BAG IVPB (09:46)
[2020-03-07] MEDS: Normal Saline 1,000 ML 250 ML IV (09:47)
--- NOTE | 2020-03-07 09:49 | DI.VRAD_ITS ---
PROCEDURE INFORMATION: Exam: XR Chest, 1 View Exam date and time: 03/07/2020 8:37 AM Age: 69 years old Clinical indication: Other: Cellulitis TECHNIQUE: Imaging protocol: XR of the chest Views: 1 view. COMPARISON: CR XR PORTABLE CHEST AP 01/19/2020 12:36 PM FINDINGS: Lungs: Redemonstrated left lower lung opacities. Pleural space: Possibly small left pleural effusion. Heart/Mediastinum: Cardiomegaly. Bones/joints: Unremarkable. IMPRESSION: Redemonstrated left lower lung opacities and possibly small left pleural effusion along with cardiomegaly. Findings may represent pneumonia, atelectasis and/or pulmonary edema. Dictated and Authenticated by: Omid Chirinos MD. Ordering:ABDI Rod MD
[2020-03-07] MEDS: Normal Saline 1,000 ML 100 ML IV ×2 (10:43→23:38)
[2020-03-07 10:47] VITALS: BP 93/61; PULSE 70; RESP 24; TEMP 37.2; O2SAT 95
--- NOTE | 2020-03-07 10:51 | HPE_ITS ---
Date of service: 03/07/20 Time of Service: 10:51 Assessment and Plan Assessment and plan (1) Cellulitis of left lower leg: Start date: 03/07/20 Start time: 11:58 Status: Acute Assessment and plan: LLE cellulities with erythema, warmth, edema, blistering, WBC 23.91, CRP greater 25 with procal 4.0. Initiated on vanco and ceftrixone 2 gm. Blood cultures pending, wound culture pending, Will consult wound, Trend CRP, CBC, CT scan to r/o osteo or abscess due to reoccurrence pending at this time (2) RAQUEL (acute kidney injury): Start date: 03/07/20 Start time: 12:21 Status: Acute Assessment and plan: Elevated BUN and Creatinine, will hold nephrotoxic medication IVF overnight and monitor renal function (3) Atrial fibrillation: Start date: 03/07/20 Start time: 12:20 Status: Chronic Assessment and plan: On eliquis, regular rate and rhythm continue BB, CCB Qualifiers: Atrial fibrillation type: unspecified Qualified Code(s): I48.91 - Unspecified atrial fibrillation (4) GERD (gastroesophageal reflux disease): Start date: 03/07/20 Start time: 12:23 Status: Chronic Assessment and plan: Continue omeprazole Qualifiers: Esophagitis presence: esophagitis presence not specified Qualified Code(s): K21.9 - Gastro-esophageal reflux disease without esophagitis (5) Type 2 diabetes mellitus: Start date: 03/07/20 Start time: 12:24 Status: Acute Assessment and plan: Will hold metformin and glipizide while in the hospital SSI with AChs fingersticks Sensitive sliding scale Qualifiers: Diabetes mellitus jail insulin use: without manager long term care use Diabetes mellitus complication status: without complication Qualified Code(s): E11.9 - Type 2 diabetes mellitus without complications (6) CHF (congestive heart failure): Start date: 03/07/20 Start time: 12:25 Status: Chronic Assessment and plan: Does not appear to be in failure at this time, will monitor for volume overload Qualifiers: Heart failure type: right-sided Heart failure chronicity: acute on chronic Qualified Code(s): I50.813 - Acute on chronic right heart failure (7) Obesity: Start date: 03/07/20 Start time: 12:27 Status: Chronic Assessment and plan: Nutrition consult Qualifiers: Body mass index: BMI 45.0-49.9 Obesity type: due to excess calories Obesity classification: adult class 3 (BMI >= 40) Serious obesity comorbidity presence: with serious comorbidity Qualified Code(s): E66.01 - Morbid (severe) obesity due to excess calories; Z68.42 - Body mass index [BMI] 45.0-49.9, adult (8) Discharge planning issues: Start date: 03/07/20 Start time: 12: Status: Acute Assessment and plan: Will be discharged back to [facility] when medically cleared (9) DVT prophylaxis: Start date: 03/07/20 Start time: 12: Status: Acute Assessment and plan: Eliquis above case discussed with Dr. 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 She presented to ED today after noticing her LLE turning erythemic with labs drawn yesterday revealing an elevated WBC count of 23.91. B/C of 32/1.05, in the ED procalcitonin was 4.0 and CRP greater than 25. She was asked to be admitted for further management. She is being admitted for antibiotic therapy, ceftriaxone 2 gm with vanco, wound culture pending, blood culture pending, will obtain CT of LLE to evaluate for osteo in a type 2 diabetic with reoccurring cellulitis. She denies CP, SOB other than baseline. Review of Systems All systems reviewed & are unremarkable except as noted in HPI and below PFSH Medical History Acute on chronic respiratory failure with hypoxia and hypercapnia Altered mental status Arthritis Atrial fibrillation Cellulitis bilateral lower extremities Cellulitis CHF (congestive heart failure) Chronic respiratory failure with hypoxia COPD (chronic obstructive pulmonary disease) Diabetes mellitus Family history unobtainable due to patient's condition GERD (gastroesophageal reflux disease) Hypercholesterolemia Mood disorder Muscle weakness (generalized) Obesity Plaque psoriasis Pneumonia Streptococcal bacteremia Toxic metabolic encephalopathy Type 2 diabetes mellitus Surgical History H/O hand surgery right index finger removal of tendon sheath ganglion H/O: hysterectomy History of carpal tunnel surgery of right wrist History of excision of lesion abdominal cyst removed S/P appendectomy Family History Father Heart disease 2 [place], at 62 Mother Heart disease Social History Smoking/Tobacco Use Status: Former Tobacco Use Smoking risk assessment performed?: Yes Alcohol Intake: never Drug use: Never Meds Home Medications and Allergies Home Medications Medication Instructions Recorded Confirmed Type Eliquis 5 mg PO BID 01/14/20 03/07/20 History Saline Nasal (aloe vera) 1 applic INTRANASAL TID PRN 01/14/20 03/07/20 History Spiriva Respimat 1 inh INHALATION DAILY 01/14/20 03/07/20 History acetaminophen [Tylenol] 650 mg PO Q4H PRN 01/14/20 03/07/20 History albuterol sulfate 2 inh INHALATION Q4H PRN 01/14/20 03/07/20 History amiodarone 200 mg PO BID 01/14/20 03/07/20 History aspirin 81 mg PO QAM 01/14/20 03/07/20 History budesonide-formoterol [Symbicort] 2 inh INHALATION BID 01/14/20 03/07/20 History citalopram 40 mg PO QAM 01/14/20 03/07/20 History cyanocobalamin (vitamin B-12) 100 mcg PO QAM 01/14/20 03/07/20 History [Vitamin B-12] diltiazem HCl [DILT-XR] 240 mg PO QAM 01/14/20 03/07/20 History epinephrine 0.3 mg IM PRN PRN 01/14/20 03/07/20 History folic acid 1 mg PO QAM 01/14/20 03/07/20 History furosemide [Lasix] 20 mg PO DAILY 01/14/20 03/07/20 History levothyroxine 37.5 mcg PO QAM 01/14/20 03/07/20 History metformin [Glucophage] 1,000 mg PO BID 01/14/20 03/07/20 History metoprolol tartrate 25 mg PO BID 01/14/20 03/07/20 History omeprazole 40 mg PO QAM 01/14/20 03/07/20 History sodium chloride [Saline Nasal Mist] 2 spray INTRANASAL Q2H PRN 01/14/20 03/07/20 History tolterodine 4 mg PO QAM 01/14/20 03/07/20 History tramadol 50 mg PO QID PRN 01/14/20 03/07/20 History triamcinolone acetonide 1 applic TOPICAL BID PRN 01/14/20 03/07/20 History celecoxib 200 mg PO BID 01/23/20 03/07/20 History T Gel Shampoo 1 applic TOPICAL .Sunday03/07/20 History ascorbic acid (vitamin C) [Vitamin 500 mg PO BID 03/07/20 03/07/20 History C] ferrous sulfate 325 mg PO BID 03/07/20 03/07/20 History hydrocortisone acetate [[place] 1 applic TOPICAL .Sunday03/07/20 03/07/20 History Dricort] lanolin jvvmshc-vr-j.pet-ceres 1 applic TOPICAL BID 03/07/20 03/07/20 History [Eucerin] nystatin 1 applic TOPICAL TID 03/07/20 03/07/20 History sulfamethoxazole-trimethoprim 1 tab PO BID 03/07/20 03/07/20 History [Bactrim DS] Allergies Allergy/AdvReac Type Severity Reaction Status Date / Time bee venom protein (honey bee) Allergy Unknown Unverified 03/07/20 08:45 Penicillins Allergy Unknown Unverified 03/07/20 08:45 strawberry Allergy Unknown Unverified 03/07/20 08:45 Exam Const General: cooperative, comfortable, no acute distress and ill appearing chronically Nutritional Appearance: obese morbidly obese Orientation: alert, awake and oriented x3 HENMT Head: normal to inspection, normocephalic and atraumatic Ears: hearing grossly normal bilaterally Eyes Sclera: sclerae normal Pupils: PERRL EOM: EOM intact bilaterally Neck Neck: normal visual inspection, full ROM and no JVD Lymphatic: no lymphadenopathy noted and no lymphedema noted Chest Chest: normal inspection of the chest Resp Effort & Inspection: able to speak in complete sentences and abnormal respiratory pattern (baseline SOB) Auscultation: clear to auscultation bilaterally Cardio Jugular venous pressure: no JVD Rate: regular rate Rhythm: regular rhythm GI Inspection: large pannus and obesity Palpation: soft and no hepatosplenomegaly Auscultation: normal bowel sounds General: deferred Back/Spine/Pelvis Back: no CVA tenderness Skin General skin exam: erythema and excoriation Wounds: wound noted and wounds noted (large blister to wound on calf with small areas below distal to ankle ) left lower leg drainage, without odor and with surrounding erythema Other: excoriation to periarea and pannus with erythema and warmth surrounding Neuro General: patient alert, patient awake and patient oriented x3 Cognition: normal cognition Speech: speech normal Extrem General: normal to inspection, full ROM and clubbing, cyanosis or edema noted Right lower extremity: normal to inspection Psych Appearance: grossly normal Mental Status: mental status grossly normal Speech and Movement: speech and movement normal Mood: congruent mood Affect: normal affect Attitude: cooperative Results Labs Labs: Laboratory Results - last 24 hr 03/07/20 03/07/20 03/07/20 08:40 08:50 09:18 VBG Lactate 1.1 C-Reactive Protein > 25.00 H Procalcitonin 4.0 Urine Color Yellow Urine Clarity Clear Urine pH 5.5 Ur Specific Sargeant 1.020 Urine Protein Negative Urine Ketones Negative Urine Blood Negative Urine Nitrite Negative Urine Bilirubin Negative Urine Urobilinogen 0.2 Ur Leukocyte Esterase Negative Urine Glucose Negative Last Vital Signs Temp 37.8 C H 03/07/20 08:17 Pulse 79 03/07/20 08:17 Resp 20 03/07/20 08:17 BP 117/40 L 03/07/20 08:17 Pulse Ox 97 03/07/20 08:17 COVID-19 Screening Have you, or household traveled for leisure in last 14 days?: No Had IN PERSON contact w/suspected or confirmed C-19 person: No
[2020-03-07 11:10] VITALS: BP 93/61; PULSE 70; RESP 24; TEMP 37.2; O2SAT 95
[2020-03-07] MEDS: VANCOMYCIN/WATER (PEG) 2 GM/400 ML BAG IVPB (11:13)
[2020-03-07] MEDS: Normal Saline - Diluent 50 ML VIAL IV (12:20)
[2020-03-07] MEDS: Omnipaque 350 MG/ML 100 ML BTL IJ (12:20)
[2020-03-07] MEDS: Insulin Aspart 300 UNITS/3 ML PEN SC ×2 (12:30→17:03)
[2020-03-07] MEDS: Polyethylene Glycol 3350 17 GM PACKET PO (12:30)
[2020-03-07] MEDS: traMADol 50 MG TAB PO ×2 (12:30→20:45)
--- NOTE | 2020-03-07 13:16 | DI.VRAD_ITS ---
PROCEDURE INFORMATION: Exam: CT Left Lower Extremity With Contrast Exam date and time: 03/07/2020 12:08 PM Age: 69 years old Clinical indication: Pain; Other: Hip to toe per PT TECHNIQUE: Imaging protocol: CT of the Left lower extremity with intravenous contrast was performed. Contrast material: OMNI 350; Contrast volume: 100 ml; Contrast route: INTRAVENOUS (IV); COMPARISON: MR LOWER EXTREMITY LT WO/W 01/19/2020 11:10 AM FINDINGS: Please note that the distal tibia and fibula are excluded from the field of view on axial images. There is extensive surrounding distal lower extremity edema (predominant pretibial) with surrounding skin thickening. There is no definitive cortical erosion of the visualized anterior tibia. No fracture. There are moderate degenerative changes of the knee joint, predominantly involving the medial joint compartment. Left inguinal and iliac chain lymph nodes are present. Several morphologically unusual lymph nodes are demonstrated and are prominent (series 4, images 113 and image 43; for example). Sagittal imaging demonstrates an exophytic skin lesion measuring almost 4.8 cm in the craniocaudal dimension. There is no mention of this on history and excluded from the field of view on axial images. Prominent greater saphenous vein. Moderate fat containing umbilical hernia. Decompressed urinary bladder with Hoffmann catheter. IMPRESSION: Given history/indication is pretty nonspecific. Limited evaluation as the distal tibia and fibula are excluded from the field of view on axial images. Previous MRI of the left lower extremity dated 01/19/2020 characterizes the bone marrow of the distal femur and proximal tibia with mention of marrow reconversion or malignant process (clinical correlation was requested). There is extensive surrounding distal lower extremity edema (predominantly pretibial) with significant surrounding skin thickening throughout the lower extremity without any particular areas of osseous cortical erosion within the visualized bones. Recommend clinical correlation for cellulitis/edema. Sagittal imaging demonstrates an exophytic skin lesion measuring almost 4.8 cm in the craniocaudal dimension. There is no mention of this on history and excluded from the field of view on axial images. Recommend physical examination correlation. Left inguinal and iliac chain lymph nodes are prominent with several morphologically unusual lymph nodes described above. Other findings as above. Dictated and Authenticated by: Omid Chirinos MD. Ordering:LASHONDA Barrow MD
[2020-03-07] MEDS: Nystatin POWDER 15 GM JAR TP ×2 (13:53→20:17)
[2020-03-07] MEDS: CLINDAMYCIN 900 MG/50 ML BAG 50 MG IVPB ×2 (14:34→21:40)
--- NOTE | 2020-03-07 14:43 | WOUNDCONS ---
- If Service Date Differs Date of service: 03/07/20 Time of Service: 13:30 Wound Initial Evaluation Narrative: Patient is a 69 yof, who has been a patient here before. She presents to the ED today, after the left extremity started becoming more painful and swollen starting on Javy Teresita. Patient stated she has been in bed for roughly 2 weeks to this point. Her allergies, labs and H&P and anything else pertinent to the wound was reviewed prior to the consult. Patient agreed that she understood what needed to be done, and signed the consent - Wound Left Lower Tib/Fib(lower leg) Wound Type: Other (left loer leg cellulitis) Wound General Appearance: Reddened, Draining Wound Bed Greatest Portion: Dusky Red Wound Surrounding Tissue Appearance: Dark Red, Edematous, Weeping Percent of Wound Bed Granulated/Red: 100 Wound Length: 47.5 cm Wound Width: 44 cm Wound Depth: 0.1 cm Wound Drainage Amount: Moderate Wound Drainage Odor: Foul Odor Wound Drainage Description: Serous Wound Topical Solution/Irrigant: Antibiotic Irrigant Wound Debridement Method: Mechanical Wound Debridement Result: Healthy Tissue Revealed Wound Debridement Amount of Tissue Removed: Minimal - Circulation, Sensation, Motion Edema Degree: 2+ Peripheral Pulse Strength: Weak Capillary Refill: Less than 3 seconds Sensation Description: Numbness, Tingling, Pain Skin Temperature: Hot Skin Color: Pale (Patient is pale other than affected area) - Pain Pain Level: 8 (with cleaning) Pain Scale Used: Visual Analog Scale 0-10 Pain Description: Burning Patient who has been treated here before for cellulitis, returns again with a left lower extremity cellulitis. Posterior aspect has a large oozing blister, and a small open area that is oozing as well. Area is warm to hot to touch, and very painful with cleaning. Current plan is too clean wound daily with a topical fish cleaner machine tender to knockdown the surface bacteria, and dressings to control the exudate. - Treatment/Dressing Change Cleanse With: Anasept, Debrisoft Dressing Types: Adaptic (Contact Layer), Kerlix (Gauze Roll), Opti-Lock - Recomendation Recomendation:: Clean with Anasept spray and Debrisoft sponge, then pat dry. Apply Optiloc dressing to the open and blistered area on the posterior aspect of the leg. Secure dressings with Sandra. Change daily or PRN. Physcian/Nurse Practioner Notified: Yes (Pushpa Levy NP) Treatment Time - Time Total Time Spent with Patient: 60 minutes - Patient Will be Seen Weekly Treatment: daily - For: For:: 1 week
[2020-03-07 16:20] VITALS: BP 95/56; PULSE 69; RESP 22; TEMP 36.6; O2SAT 96
[2020-03-07] MEDS: CEFEPIME 2 GM in Normal Saline 100 ML IVPB ×2 (17:03→23:38)
[2020-03-07] MEDS: Amiodarone 200 MG TAB PO (20:15)
[2020-03-07] MEDS: Acetaminophen 500 MG TAB 1000 MG PO (20:15)
[2020-03-07] MEDS: Metoprolol 25 MG TAB PO (20:15)
[2020-03-07] MEDS: Apixaban 5 MG TAB PO (20:15)
[2020-03-07] MEDS: Ferrous Sulfate 325 MG TAB PO (20:15)
[2020-03-07] MEDS: Ascorbic Acid 500 MG TAB PO (20:16)
[2020-03-07] MEDS: Budesonide/Formoterol 160/4.5 6 GM 60 PUFF INH IH (20:16)
[2020-03-07 23:25] VITALS: BP 132/73; PULSE 72; RESP 20; TEMP 37.1; O2SAT 96
[2020-03-08] VITALS (8 sets, daily range): BP systolic 101–131; BP diastolic 57–74; PULSE 54–74; RESP 17–22; TEMP 36–37.4; O2SAT 93–96
[2020-03-08] MEDS: CLINDAMYCIN 900 MG/50 ML BAG 50 MG IVPB ×3 (05:27→21:38)
[2020-03-08] MEDS: Levothyroxine 75 MCG TAB 37.5 MCG PO (05:27)
[2020-03-08 07:05] LABS: Abs Immature Grans 0.31 10^3/uL (0.0-0.06); Absolute Eosinophil Count 0.43 10^3/uL (0.0-0.7); Basophils % 0.3; Eosinophils % 1.9; HCT 30.9 % (36.0-46.0); HGB 9.1 g/dL (11.2-15.7); Immature Grans % 1.4; Lymphocytes % 8.3; MCHC 29.4 % (32.0-36.0); MCV 88.3 fL (80-95); MPV 9.5 fL (8.0-11.0); Monocytes % 4.6; Neutrophils % 83.5; Nucleated RBC 0 %; Platelet Count 309 10^3/uL (130-400); RDW 20.5 % (11.7-14.6); RDW-SD 66.6 fL; WBC 22.84 10^3/uL (4.4-10.8)
[2020-03-08 07:11] LABS: Anion Gap 4.3 mmol/L (3-11); BUN 25 mg/dL (7-18); CO2 32.7 mmol/L (21.0-32.0); Calcium 8.7 mg/dL (8.5-10.1); Chloride 100 mmol/L (98-107); Glucose 126 mg/dL (74-106); Magnesium 1.8 mg/dL (1.8-2.4); Potassium 4.8 mmol/L (3.5-5.1); Sodium 137 mmol/L (136-145)
[2020-03-08 07:35] LABS: Absolute Basophil Count 0.07 10^3/uL (0.0-0.2); Absolute Monocyte Count 1.05 10^3/uL (0.1-0.8); Absolute Neutrophil Count 19.07 10^3/uL (1.2-6.7)
[2020-03-08 07:36] LABS: Anisocytosis 1+; Microcytosis 1+; Polychromasia Present
[2020-03-08] MEDS: Budesonide/Formoterol 160/4.5 6 GM 60 PUFF INH IH ×2 (08:04→19:59)
[2020-03-08] MEDS: Tiotropium Bromide-Respimat 10 PUFF INH IH (08:05)
[2020-03-08] MEDS: Polyethylene Glycol 3350 17 GM PACKET PO (08:43)
[2020-03-08] MEDS: dilTIAZem CD 120 MG CAPCR 240 MG PO (08:43)
[2020-03-08] MEDS: Tolterodine 2 MG CAPCR 4 MG PO (08:43)
[2020-03-08] MEDS: Amiodarone 200 MG TAB PO ×2 (08:44→20:02)
[2020-03-08] MEDS: Ascorbic Acid 500 MG TAB PO ×2 (08:44→19:59)
[2020-03-08] MEDS: Apixaban 5 MG TAB PO ×2 (08:44→20:01)
[2020-03-08] MEDS: Aspirin E.C. 81 MG TABEC PO (08:44)
[2020-03-08] MEDS: Metoprolol 25 MG TAB PO ×2 (08:44→21:37)
[2020-03-08] MEDS: Folic Acid 1 MG TAB PO (08:44)
[2020-03-08] MEDS: Docusate Sodium 100 MG CAP PO (08:44)
[2020-03-08] MEDS: Citalopram 20 MG TAB 40 MG PO (08:44)
[2020-03-08] MEDS: Cyanocobalamin 100 MCG TABLET PO (08:44)
[2020-03-08] MEDS: Omeprazole 20 MG CAPCR 40 MG PO (08:44)
[2020-03-08] MEDS: Ferrous Sulfate 325 MG TAB PO ×2 (08:45→20:02)
[2020-03-08] MEDS: CEFEPIME 2 GM in Normal Saline 100 ML IVPB ×3 (08:45→23:35)
[2020-03-08] MEDS: Acetaminophen 500 MG TAB 1000 MG PO (08:45)
[2020-03-08] MEDS: Nystatin POWDER 15 GM JAR TP ×3 (08:57→21:37)
[2020-03-08] MEDS: traMADol 50 MG TAB PO ×2 (09:36→18:33)
--- NOTE | 2020-03-08 11:19 | W.PM.PROGNOT ---
Date of Service Date of service: 03/08/20 Time of Service: 11:19 Assessment and Plan Assessment and plan (1) Cellulitis of left lower leg: Start date: 03/08/20 Start time: 11:24 Status: Acute Assessment and plan: LLE cellulities with erythema, warmth, edema, blistering, WBC 23.91 on admission 22.84 today , CRP greater 25 with procal 4.0; will continue to monitor .Wound culture with group A strep. Dcd vanco initiated on cefepime with ceftriaxone 2 gm. Day 2 Wound nurse to care for wound. Trend CRP, CBC, Procal CT scan reveals: FINDINGS: Cutaneous/soft tissues: There is thickening of the skin over the anterior and medial aspect of the left thigh. This extends inferiorly beyond the knee into the anterior calf to the lower field of view of this study which is region of the ankle and this extends into the for foot. Subcutaneous edema is noted and this becomes more confluent on the anterior-lateral aspect of left knee and extending down anterior to the patellar ligament. Also noted to be somewhat confluent fluid intensity in the deep anterior calf just anterior to the tibialis anterior muscle. There appears to be a small left knee joint effusion in the lateral aspect of the suprapatellar bursa. There is no heard cyst in the popliteal fossa. There are a few slightly prominent lymph nodes in the ipsilateral groin. Osseous: There is no obvious hip fracture.. No other fractures identified, including the visualized ipsilateral foot and ankle. Degenerative changes in the knee noted almost evident in the medial compartment. There are no lytic osseous lesions identified on CT scan. IMPRESSION: There is extensive left lower extremity skin thickening and edema which is somewhat confluent in the pretibial region. No fractures nor obvious bone lesions evident. However, please note the abnormal osseous findings on recent MRI scan of 01/19/2020. She did have an MRI on 01/13 without evidence osteomyelitis. (2) RAQUEL (acute kidney injury): Start date: 03/08/20 Start time: Status: Resolved Assessment and plan: Renal function improved. Continue to monitor (3) Atrial fibrillation: Start date: 03/08/20 Start time: : Status: Chronic Assessment and plan: On eliquis, regular rate and rhythm continue BB, CCB Qualifiers: Atrial fibrillation type: unspecified Qualified Code(s): I48.91 - Unspecified atrial fibrillation (4) GERD (gastroesophageal reflux disease): Start date: 03/08/20 Start time: : Status: Chronic Assessment and plan: Continue omeprazole Qualifiers: Esophagitis presence: esophagitis presence not specified Qualified Code(s): K21.9 - Gastro-esophageal reflux disease without esophagitis (5) Type 2 diabetes mellitus: Start date: 03/08/20 Start time: 11: Status: Acute Assessment and plan: Will hold metformin and glipizide while in the hospital bgl this am 89 SSI with AChs fingersticks Sensitive sliding scale Qualifiers: Diabetes mellitus correction insulin use: without computer terminal operator use Diabetes mellitus complication status: without complication Qualified Code(s): E11.9 - Type 2 diabetes mellitus without complications (6) CHF (congestive heart failure): Start date: 03/08/20 Start time: Status: Chronic Assessment and plan: Does not appear to be in failure at this time, will monitor for volume overload daily wts, low sodium diet Qualifiers: Heart failure type: right-sided Heart failure chronicity: acute on chronic Qualified Code(s): I50.813 - Acute on chronic right heart failure (7) Obesity: Start date: 03/08/20 Start time: 11: Status: Chronic Assessment and plan: Nutrition consult Qualifiers: Obesity type: due to excess calories Obesity classification: adult class 3 (BMI >= 40) Serious obesity comorbidity presence: with serious comorbidity Body mass index: BMI 45.0-49.9 Qualified Code(s): E66.01 - Morbid (severe) obesity due to excess calories; Z68.42 - Body mass index [BMI] 45.0-49.9, adult (8) Discharge planning issues: Start date: 03/08/20 Start time: : Status: Acute Assessment and plan: Will be discharged back to [facility] when medically cleared Palliative care consult to discuss goals of care (9) DVT prophylaxis: Start date: 03/08/20 Start time: : Status: Acute Assessment and plan: Janeth above case discussed with Dr. Willett who is in agreement Subjective Subjective Patient reports: still having pain and other Interval history since last seen: Ms. King states she felt better today, she slept overall well last night with one episode of waking up feeling like she could not breath. She takes 4 L at all times. Will order ativan for increasing anxiety and SOB. Otherwise wound appears the same, WBC slight improvement. Wound culture with strep A. Continue cefepime and Rocephin 2 gm. Afebrile. continue to trend CRP, cbc. she denies CP, worsening SOB, n/v/d Exam Const General: cooperative, comfortable, no acute distress and ill appearing chronically Nutritional Appearance: obese morbidly obese Orientation: alert, awake and oriented x3 HENMT Head: normal to inspection, normocephalic and atraumatic Ears: hearing grossly normal bilaterally Eyes Sclera: sclerae normal Pupils: PERRL EOM: EOM intact bilaterally Neck Neck: normal visual inspection, full ROM and no JVD Lymphatic: no lymphadenopathy noted and no lymphedema noted Chest Chest: normal inspection of the chest Resp Effort & Inspection: able to speak in complete sentences and abnormal respiratory pattern (baseline SOB) Auscultation: clear to auscultation bilaterally and diminished lung sounds Cardio Jugular venous pressure: no JVD Rate: regular rate Rhythm: regular rhythm GI Inspection: large pannus and obesity Palpation: soft and no hepatosplenomegaly Auscultation: normal bowel sounds General: deferred Back/Spine/Pelvis Back: no CVA tenderness Skin General skin exam: erythema and excoriation Wounds: wound noted and wounds noted (large blister to wound on calf with small areas below distal to ankle ) Neuro General: patient alert, patient awake and patient oriented x3 Cognition: normal cognition Speech: speech normal Extrem General: normal to inspection, full ROM and clubbing, cyanosis or edema noted Right lower extremity: normal to inspection Psych Appearance: grossly normal Mental Status: mental status grossly normal Speech and Movement: speech and movement normal Mood: congruent mood Affect: normal affect Attitude: cooperative Objective Last Vital Signs Temp 36.9 C 03/08/20 11:12 Pulse 73 03/08/20 11:12 Resp 17 03/08/20 11:12 BP 111/61 03/08/20 11:12 Pulse Ox 94 03/08/20 11:12 Laboratory Results - last 24 hr 03/08/20 03/08/20 06:25 06:25 WBC 22.84 H RBC 3.50 L Hgb 9.1 L Hct 30.9 L MCV 88.3 MCH 26.0 L MCHC 29.4 L RDW 20.5 H Plt Count 309 MPV 9.5 Immature Gran % 1.4 Neutrophils % 83.5 Lymphocytes % 8.3 Monocytes % 4.6 Eosinophils % 1.9 Basophils % 0.3 Nucleated RBC % 0 Absolute Neutrophils 19.07 H Absolute Lymphocytes 1.90 Absolute Monocytes 1.05 H Absolute Eosinophils 0.43 Absolute Basophils 0.07 RBC Morphology See below Polychromasia Present Anisocytosis 1+ Microcytosis 1+ Sodium 137 Potassium 4.8 Chloride 100 Carbon Dioxide 32.7 H Anion Gap 4.3 BUN 25 H Creatinine 0.90 Estimated GFR/1.73 m2 >= 60.00 Glucose 126 H Calcium 8.7 Magnesium 1.8
[2020-03-08] MEDS: Insulin Aspart 300 UNITS/3 ML PEN SC ×2 (11:37→16:53)
--- NOTE | 2020-03-08 12:23 | W.NUTCONSULT ---
Date of service: 03/08/20 Time of Service: 12:23 Nutritional Consult ASSESSMENT: 69 year old female admitted with RAQUEL, cellulitis of left lower leg with hx of DM2, morbid obesity (BMI 45) and CHF. Medical chart indicates 24 lbs weight loss in last 8 weeks (-8% weight loss) which may be due to fluid fluctuations/medications for CHF or from poor po intake. Unable to meet with pt today due to covid 19 precautions. Home meds include metformin 1000 mg BID, most recent A1C: 5.8% (01/30/20) indicates well controlled DM.Will meet with pt when able to discuss recent weight loss and to ascertain if she needs education for DM management. Following diabetic diet. No information available on po intake. NUTRITIONAL DIAGNOSIS: Morbid obesity as evidenced by BMI of 45- class 3 obesity INTERVENTION: Diabetic Diet MONITORING AND EVALUATION: po intake, labs, wound healing, weight Time Spent in Nutritional Counseling and Treatment: 0 time
[2020-03-08] MEDS: Normal Saline 500 ML 100 ML IV (14:16)
--- NOTE | 2020-03-08 14:45 | CHAPLAIN ---
Marlen was sitting up in her chair when I visited. She said she is waiting the results of several tests to know what the plan will be for her care, and that it's frustrating waiting to learn what the care plan will be. She said she has three wounds on her stomach which are painful when the nurses do wound care, but she knows they are not purposefully hurting her, she said, and she tells them that when they apologize. Marlen asked how to reach me if she'd like further visits and I let her know that nurses can page me at anytime.
[2020-03-08] MEDS: Normal Saline Flush 10 ML SYR IVP ×3 (16:53→23:34)
--- NOTE | 2020-03-08 17:47 | INITIAL_ITS ---
- If Service Date Differs Date of service: 03/08/20 Time of Service: 17:47 Care Management Initial Assess REASON FOR HOSPITALIZATION:: Cellulitis PAST MEDICAL HISTORY/PAST SURGICAL HISTORY:: Medical History. Acute on chronic respiratory failure with hypoxia and hypercapnia. Altered mental status. Arthritis. Atrial fibrillation. Cellulitis. bilateral lower extremities. Cellulitis. CHF (congestive heart failure). Chronic respiratory failure with h ypoxia. COPD (chronic obstructive pulmonary disease). Diabetes mellitus. Family history unobtainable due to patient's condition. GERD (gastroesophageal reflux disease). Hypercholesterolemia. Mood disorder. Muscle weakness (generalized). Obesity. Plaque psoriasis. Pneumonia. Streptococcal bacteremia. Toxic metabolic encephalopathy. Type 2 diabetes mellitus. Surgical History. H/O hand surgery. right index finger removal of tendon sheath ganglion. H/O: hysterectomy. History of carpal tunnel surgery of right wrist. History of excision of lesion. abdominal cyst removed. S/P london endectomy PREVIOUS FUNCTIONAL STATUS/SOCIAL/FAMILY SUPPORTS:: Marlen is a resident of the [facility]. She previously was living in a level three facility in [place], [place], but when it closed she was relocated. 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 She has a daughter, Karlie, who lives locally and is supportive. She needs assistance with her ADL's CURRENT FUNCTIONAL STATUS:: Marlen was sitting up in her chair when CM met with her. She stated that unlike her previous admission, she has more pain in her leg, in the area of her infection today. She reported that she is still settling in to the [facility], but overall it has been a nice place to live. She stated that she is unclear of how long her admission will be at this point. CM discussed scenarios, including the possibility of halfway antibiotics, given the fact that she recently was admitted for 2+ weeks of IV abx, and is now back in such a short time. CM will continue to follow. ADVANCE DIRECTIVES:: COLST on file Has patient been provided with info about the portal/API?: Yes Did the patient sign up for the portal?: No CODE STATUS:: Full Code INSURANCE COVERAGE / FINANCIAL ISSUES:: [facility] CURRENT HOME/COMMUNITY SERVICES/EQUIPMENT:: Marlen currently lives at the [facility] where she receives assistance with her care. PRIMARY CARE PHYSICIAN:: Evi Radha[facility] POTENTIAL DISCHARGE NEEDS:: Possible remote computer terminal operator IV abx, may need B stay, follow up appointments. PATIENT/FAMILY EDUCATION NEEDS:: Review discharge instructions with pt and staff at the [facility], discussion of self care needs including ask me three and goals of care. ANTICIPATED BARRIERS TO DISCHARGE:: Need for IV abx, possibly halfway TRANSPORTATION:: Via [facility] w/c van when ready. PLAN:: Marlen continues to be closely monitored and her abx course was adjusted today. She may need remote computer terminal operator abx treatment, which she will likely remain at [facility] for, depending on the course. She will return to the [facility] when medically cleared. She will transport via [facility] w/[facility] van, coordinated by CM. CM will continue to follow.
[2020-03-08] MEDS: LORazepam 0.5 MG TAB PO (20:01)
--- NOTE | 2020-03-08 20:14 | PCNE_ITS ---
Date of service: 03/08/20 Time of Service: 18:14 History of Present Illness Narrative: Marlen is a 69-year-old woman who lives at the [facility]. She has left leg cellulitis. She was in [facility] went back to the [facility] and then returned recently. She is now on IV antibiotics. Her long-range plan is to stay at the [facility]. She is unable to live at home alone. She does have an involved daughte r. Unfortunately her daughter has a sick and she herself has MS. Marlen's care is complicated by morbid obesity, atrial fibrillation, reflux, type 2 diabetes, congestive heart failure. I was asked by hospitalist to speak with Marlen about her goals of care. Her main goal is to return to the [facility]. She does not know if she has designated anyone as her DPOA legally. She is willing to do that today. She feels that her daughter Karlie Salazar would be the best at determining what how 1 would want if Marlen was not able to speak for herself. Marlen is also a full code. She understands that full code means that she would receive CPR if her heart was not beating or she was not breathing. In discussing CPR she was quite vocal saying she would not want intubation, she does not want electricity to restart her heart, and she does not want people pushing on her chest to move the blood around. Still she would like to talk to her daughter about this before she signs any legal documents stating this. 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 She is a 69-year-old vibrant woman who has capacity and knows her own mind. She enjoys her life at the [facility] and plans to live out her life at the [facility]. Her mom lived into her 90s and she is expecting the same. Regarding DPOA?we did fill out the appropriate forms and Karlie Salazar is her DPOA. This was signed and witnessed. She was not able to do an alternative agent. Regarding COLST?she was very vocal that she does not want intubation, electrical impulses to restart her heart or changed rhythm, or chest compressions. Still she would like to talk to her daughter prior to putting this down in writing. She does not want to overburden her daughter because of her daughters problems at home. She does think that she could have this done by Sunday. I plan to return at that time and hopefully she will be ready to complete the COLST form I reviewed the present COVID 19 protocol with the patient. Review of Systems Narrative: States that she has multiple body aches. She also has pain from what she thinks is a yeast infection under her breasts and in her groin from the IV antibiotics. It is difficult for her to move at baseline. She now has a catheter which makes it even more difficult to move. Her leg pain from the cellulitis is better but not good. Constitutional Constitutional: Reports body ache(s) Cardiovascular Cardiovascular: Reports dyspnea Respiratory Respiratory: Reports dyspnea Integumentary/Breasts Skin/Breast: Reports change in pigmentation, Reports skin swelling and Reports skin ulcer PFSH Medical History Acute on chronic respiratory failure with hypoxia and hypercapnia Altered mental status Arthritis Atrial fibrillation Cellulitis bilateral lower extremities Cellulitis CHF (congestive heart failure) Chronic respiratory failure with hypoxia COPD (chronic obstructive pulmonary disease) Diabetes mellitus Family history unobtainable due to patient's condition GERD (gastroesophageal reflux disease) Hypercholesterolemia Mood disorder Muscle weakness (generalized) Obesity Plaque psoriasis Pneumonia Streptococcal bacteremia Toxic metabolic encephalopathy Type 2 diabetes mellitus Surgical History H/O hand surgery right index finger removal of tendon sheath ganglion H/O: hysterectomy History of carpal tunnel surgery of right wrist History of excision of lesion abdominal cyst removed S/P appendectomy Family History Father Heart disease 2 DC, at 62 Mother Heart disease Social History Smoking/Tobacco Use Status: Former Tobacco Use Smoking risk assessment performed?: Yes Alcohol Intake: never Drug use: Never Exam Narrative Exam Narrative: I did not take down her dressing that was around her left leg. It is quite edematous. There are blisters that show through the dressing. Her toes are swollen and red. She does have redness which extends above the proximal line drawn previously for her cellulitis. Const General: cooperative and no acute distress Nutritional Appearance: obese Orientation: oriented x3 HENMT Head: normal to inspection Ears: hearing grossly normal bilaterally General nose exam: external nose normal Eyes Alignment and Position: alignment normal Chest Other: skin under the breasts was red w/ white cream Resp Effort & Inspection: normal respiratory effort and able to speak in complete sentences Auscultation: crackles on the left in the lower lung askew and 1/[address] up Cardio Heart Sounds: murmur GI Palpation: soft and no hepatosplenomegaly Auscultation: normal bowel sounds Rectal Exam - female: visual inspection normal Results Last Vital Signs Temp 96.8 F L 03/08/20 19:53 Pulse 65 03/08/20 19:53 Resp 22 03/08/20 19:53 BP 101/64 03/08/20 19:53 Pulse Ox 96 03/08/20 19:53 Labs Result diagrams: 03/09/20 06:29 03/09/20 06:29 Labs: Laboratory Results - last 24 hr 03/08/20 03/08/20 06:25 06:25 WBC 22.84 H RBC 3.50 L Hgb 9.1 L Hct 30.9 L MCV 88.3 MCH 26.0 L MCHC 29.4 L RDW 20.5 H Plt Count 309 MPV 9.5 Immature Gran % 1.4 Neutrophils % 83.5 Lymphocytes % 8.3 Monocytes % 4.6 Eosinophils % 1.9 Basophils % 0.3 Nucleated RBC % 0 Absolute Neutrophils 19.07 H Absolute Lymphocytes 1.90 Absolute Monocytes 1.05 H Absolute Eosinophils 0.43 Absolute Basophils 0.07 RBC Morphology See below Polychromasia Present Anisocytosis 1+ Microcytosis 1+ Sodium 137 Potassium 4.8 Chloride 100 Carbon Dioxide 32.7 H Anion Gap 4.3 BUN 25 H Creatinine 0.90 Estimated GFR/1.73 m2 >= 60.00 Glucose 126 H Calcium 8.7 Magnesium 1.8
--- NOTE | 2020-03-08 21:04 | NUR.NOTE ---
reviewed scheduled cardiac meds and vitals with pts RN d/t pt RN's concerns about risk of low HR BP after admin. Nursing Note:
[2020-03-09 00:33] LABS: COVID-19 RT-PCR UVMMC Result Negative (Negative)
[2020-03-09] MEDS: Levothyroxine 75 MCG TAB 37.5 MCG PO (06:23)
[2020-03-09] MEDS: CLINDAMYCIN 900 MG/50 ML BAG 50 MG IVPB ×3 (06:24→22:02)
[2020-03-09] MEDS: Normal Saline Flush 10 ML SYR IVP (06:24)
[2020-03-09 06:52] LABS: Abs Immature Grans 0.66 10^3/uL (0.0-0.06); HCT 31.5 % (36.0-46.0); HGB 9.4 g/dL (11.2-15.7); MCHC 29.8 % (32.0-36.0); MCV 87.3 fL (80-95); Nucleated RBC 0 %; Platelet Count 346 10^3/uL (130-400); RBC 3.61 10^6/uL (3.93-5.22); RDW 20.2 % (11.7-14.6); RDW-SD 64.5 fL; WBC 16.77 10^3/uL (4.4-10.8)
[2020-03-09 06:57] LABS: Anion Gap 2.4 mmol/L (3-11); BUN 18 mg/dL (7-18); CO2 32.6 mmol/L (21.0-32.0); CREATININE 0.84 mg/dL (0.55-1.02); Calcium 8.8 mg/dL (8.5-10.1); Chloride 100 mmol/L (98-107); Glucose 127 mg/dL (74-106); Potassium 4.6 mmol/L (3.5-5.1); Sodium 135 mmol/L (136-145)
[2020-03-09 07:11] LABS: C-Reactive Protein 14.25 mg/dL (0.0-0.3)
[2020-03-09 07:23] LABS: Absolute Eosinophil Count 0.67 10^3/uL (0.0-0.7); Absolute Lymphocyte Count 2.18 10^3/uL (1.2-3.4); Absolute Monocyte Count 1.01 10^3/uL (0.1-0.8); Absolute Neutrophil Count 12.41 10^3/uL (1.2-6.7); Atypical Lymphocytes % 1
[2020-03-09 07:24] LABS: Anisocytosis 2+; Diff Comment Manual Differential; Hypochromasia 2+; Metamyelocytes % 3; Myelocytes % 1; Poikilocytes 1+; Polychromasia Present
[2020-03-09 07:30] VITALS: O2SAT 97
[2020-03-09 07:35] VITALS: BP 103/62; PULSE 69; RESP 18; TEMP 36.5; O2SAT 96
[2020-03-09] MEDS: Tiotropium Bromide-Respimat 10 PUFF INH IH (07:36)
[2020-03-09] MEDS: Budesonide/Formoterol 160/4.5 6 GM 60 PUFF INH IH ×2 (07:36→20:34)
[2020-03-09] MEDS: Citalopram 20 MG TAB 40 MG PO (08:00)
[2020-03-09] MEDS: Apixaban 5 MG TAB PO ×2 (08:01→20:20)
[2020-03-09] MEDS: traMADol 50 MG TAB PO (08:01)
[2020-03-09] MEDS: Aspirin E.C. 81 MG TABEC PO (08:01)
[2020-03-09] MEDS: Cyanocobalamin 100 MCG TABLET PO (08:01)
[2020-03-09] MEDS: Tolterodine 2 MG CAPCR 4 MG PO (08:02)
[2020-03-09] MEDS: Folic Acid 1 MG TAB PO (08:03)
[2020-03-09] MEDS: Metoprolol 25 MG TAB PO ×2 (08:03→20:20)
[2020-03-09] MEDS: Ascorbic Acid 500 MG TAB PO ×2 (08:03→20:20)
[2020-03-09] MEDS: dilTIAZem CD 120 MG CAPCR 240 MG PO (08:03)
[2020-03-09] MEDS: Ferrous Sulfate 325 MG TAB PO ×2 (08:04→20:20)
[2020-03-09] MEDS: Amiodarone 200 MG TAB PO ×2 (08:04→20:20)
[2020-03-09] MEDS: Omeprazole 20 MG CAPCR 40 MG PO (08:04)
[2020-03-09] MEDS: Nystatin POWDER 15 GM JAR TP ×3 (10:09→20:35)
--- NOTE | 2020-03-09 10:40 | W.NUTRFU ---
Date of service: 03/09/20 Time of Service: 10:40 Nutritional Follow up NOTE: Met with Marlen today. PO intake has been excellent. Educated pt on importance of protein intake for optimal healing. Marlen refuses to take protein supplements, ensure or glucerna to supplement intake. Willing to eat cottage cheese daily with high protein meals. Will meet nutrient intake if able to consume 3 meals daily and extra serving of cottage cheese daily. Will continue to follow. Time Spent in Nutritional Counseling and Treatment: 15
--- NOTE | 2020-03-09 11:15 | DI.RAD_ITS ---
EXAM: XR PORTABLE CHEST AP POST LINE CLINICAL HISTORY: post picc TECHNIQUE: 2D digital imaging was performed. COMPARISON: CR,XR XR PORTABLE CHEST AP from 03/07/2020 FINDINGS: A PICC line has been inserted via the left arm. The tip projects in the SVC. There is no pneumothor ax. The heart is again noted to be enlarged. The lung bases suboptimally penetrated. No gross infi ltrate is seen. IMPRESSION: Satisfactory position of PICC line. DATA REPOSITORY: RADIATION DOSE DELIVERED:
--- NOTE | 2020-03-09 11:57 | PGE_ITS ---
Date of Service Date of service: 03/09/20 Time of Service: 11:57 Assessment and Plan Assessment and plan (1) Cellulitis of left lower leg: Status: Acute Assessment and plan: feeling better with decreased pain redness and swelling Wound culture with group A strep. On cefepime and clindamycin Day 3 Wound care referral for dressing changes/recs placed Continue to trend CRP, CBC CT scan reveals: There is extensive left lower extremity skin thickening and edema which is somewhat confluent in the pretibial region. No fractures nor obvious bone lesions evident. However, please note the abnormal osseous findings on recent MRI scan of 01/19/2020. She did have an MRI on 01/13 without evidence osteomyelitis. (2) Atrial fibrillation: Status: Chronic Assessment and plan: On eliquis, regular rate and rhythm continue BB, CCB Qualifiers: Atrial fibrillation type: unspecified Qualified Code(s): I48.91 - Unspecified atrial fibrillation (3) Type 2 diabetes mellitus: Status: Acute Assessment and plan: Will hold metformin and glipizide while in the hospital bgl this am 123 SSI with AChs fingersticks Sensitive sliding scale Qualifiers: Diabetes mellitus complication status: without complication Diabetes mellitus alf insulin use: without alf use Qualified Code(s): E11.9 - Type 2 diabetes mellitus without complications (4) Discharge planning issues: Status: Acute Assessment and plan: case management following for discharge planning discussed with Dr Lane Subjective Subjective Patient reports: no new complaints, feels better, pain is less, tolerating liquids well, tolerating a regular diet and afebrile Interval history since last seen: continues with kebede to gravity drainage, white count and inflammatory markers improving. Exam Const General: cooperative, comfortable, no acute distress and ill appearing chronically Nutritional Appearance: obese morbidly obese Orientation: alert, awake and oriented x3 HENMT Head: normal to inspection, normocephalic and atraumatic Eyes Sclera: sclerae normal Pupils: PERRL EOM: EOM intact bilaterally Neck Neck: normal visual inspection, full ROM and no JVD Chest Chest: normal inspection of the chest Resp Effort & Inspection: normal respiratory effort and able to speak in complete sentences Auscultation: clear to auscultation bilaterally, crackles on the left in the lower lung askew and 1/[address] up and diminished lung sounds Cardio Jugular venous pressure: no JVD Rate: regular rate Rhythm: regular rhythm Heart Sounds: murmur GI Inspection: large pannus and obesity Palpation: soft and no hepatosplenomegaly Auscultation: normal bowel sounds Skin General skin exam: erythema and excoriation Lesions: other (sacral wound not assessed. ) Wounds: wound noted and wounds noted (large blister to wound on calf with small areas below distal to ankle ) Neuro General: patient alert, patient awake and patient oriented x3 Cognition: normal cognition Speech: speech normal Extrem General: normal to inspection, full ROM and clubbing, cyanosis or edema noted Right lower extremity: normal to inspection Psych Appearance: grossly normal Mental Status: mental status grossly normal Speech and Movement: speech and movement normal Mood: congruent mood Affect: normal affect Attitude: cooperative Objective Last Vital Signs Temp 36.5 C 03/09/20 07:35 Pulse 69 03/09/20 07:35 Resp 18 03/09/20 07:35 BP 103/62 03/09/20 07:35 Pulse Ox 96 03/09/20 07:35 Laboratory Results - last 24 hr 03/07/20 03/09/20 03/09/20 09:30 06:29 06:29 WBC 16.77 H RBC 3.61 L Hgb 9.4 L Hct 31.5 L MCV 87.3 MCH 26.0 L MCHC 29.8 L RDW 20.2 H Plt Count 346 MPV 9.0 Immature Gran % See Differential Neutrophils % 74.0 Lymphocytes % 12.0 Atypical Lymphs % 1 Monocytes % 6.0 Eosinophils % 4.0 Basophils % 0.0 Metamyelocytes % 3 Myelocytes % 1 Nucleated RBC % 0 Absolute Neutrophils 12.41 H Absolute Lymphocytes 2.18 Absolute Monocytes 1.01 H Absolute Eosinophils 0.67 Absolute Basophils 0.00 RBC Morphology See below Polychromasia Present Hypochromasia 2+ Poikilocytosis 1+ Anisocytosis 2+ Sodium 135 L Potassium 4.6 Chloride 100 Carbon Dioxide 32.6 H Anion Gap 2.4 L BUN 18 D Creatinine 0.84 Estimated GFR/1.73 m2 >= 60.00 Glucose 127 H Calcium 8.8 C-Reactive Protein 14.25 H SARS-CoV-2 (PCR) Negative Nasopharyn COVID-19 PCR Not Applicable Ref Test Perform Site [place] [facility]
[2020-03-09] MEDS: Normal Saline 500 ML 30 ML IV (12:04)
[2020-03-09] MEDS: CEFEPIME 2 GM in Normal Saline 100 ML IVPB ×2 (12:04→20:34)
[2020-03-09] MEDS: Insulin Aspart 300 UNITS/3 ML PEN SC (12:14)
--- NOTE | 2020-03-09 15:07 | PDOC.CMPRO ---
- If Service Date Differs Date of service: 03/09/20 Time of Service: 15:07 Care Management Progress Note S/O: Marlen was sitting up in her chair when CM met with her. She stated that she was starting to feel better, but it is very painful when she has dressing changes. She said that she is hoping to see the MD soon about her plan, as she would like to know how long she will need to be on antibiotics before she will return to the [facility]. CM spoke to AWILDA Guerrero at the [facility], who expressed concern about a comment from Marlen that she has been in bed for two weeks. Yolanda stated that she has been up walking with PT and has been doing well. CM reassured her, stating that Marlen reported things going well at the [facility], although she is still adjusting to being there. CM will continue to follow. A: Marlen is a 69 year old female admitted to [facility] on 03/07/20 with Cellulitis. P: Marlen continues to be closely monitored. She may need long-term abx treatment, which she will likely remain at [facility] for, depending on the course. She will return to the [facility] when medically cleared. She will transport via [facility] w/c van, coordinated by CM. CM will continue to follow.
[2020-03-09 15:20] VITALS: BP 116/58; PULSE 66; RESP 20; TEMP 36.6; O2SAT 96
[2020-03-09] MEDS: Normal Saline Flush 10 ML SYR 20 ML IVP (20:19)
[2020-03-09 23:33] VITALS: BP 124/70; PULSE 68; RESP 20; TEMP 36.6; O2SAT 94
[2020-03-10] MEDS: CEFEPIME 2 GM in Normal Saline 100 ML IVPB ×3 (03:46→19:56)
[2020-03-10] MEDS: Levothyroxine 75 MCG TAB 37.5 MCG PO (06:06)
[2020-03-10] MEDS: CLINDAMYCIN 900 MG/50 ML BAG 50 MG IVPB ×3 (06:07→21:42)
[2020-03-10 07:37] VITALS: BP 105/51; PULSE 69; RESP 17; TEMP 37.2; O2SAT 97
[2020-03-10] MEDS: Budesonide/Formoterol 160/4.5 6 GM 60 PUFF INH IH ×2 (07:53→20:01)
[2020-03-10] MEDS: Tiotropium Bromide-Respimat 10 PUFF INH IH (07:53)
[2020-03-10] MEDS: Nystatin POWDER 15 GM JAR TP ×3 (08:09→20:02)
[2020-03-10] MEDS: Omeprazole 20 MG CAPCR 40 MG PO (08:09)
[2020-03-10] MEDS: Folic Acid 1 MG TAB PO (08:10)
[2020-03-10] MEDS: Apixaban 5 MG TAB PO ×2 (08:10→20:00)
[2020-03-10] MEDS: Ferrous Sulfate 325 MG TAB PO ×2 (08:10→20:00)
[2020-03-10] MEDS: Amiodarone 200 MG TAB PO ×2 (08:10→20:00)
[2020-03-10] MEDS: dilTIAZem CD 120 MG CAPCR 240 MG PO (08:10)
[2020-03-10] MEDS: Tolterodine 2 MG CAPCR 4 MG PO (08:10)
[2020-03-10] MEDS: Cyanocobalamin 100 MCG TABLET PO (08:10)
[2020-03-10] MEDS: Metoprolol 25 MG TAB PO ×2 (08:10→20:51)
[2020-03-10] MEDS: Aspirin E.C. 81 MG TABEC PO (08:10)
[2020-03-10] MEDS: Ascorbic Acid 500 MG TAB PO ×2 (08:10→19:59)
[2020-03-10] MEDS: Citalopram 20 MG TAB 40 MG PO (08:11)
[2020-03-10] MEDS: Normal Saline Flush 10 ML SYR 20 ML IVP ×2 (08:11→20:02)
[2020-03-10] MEDS: traMADol 50 MG TAB PO ×2 (09:06→20:51)
[2020-03-10] MEDS: Insulin Aspart 300 UNITS/3 ML PEN SC (11:42)
--- NOTE | 2020-03-10 13:59 | PHACLINREV_ITS ---
Pharmacy Admission Review - Admission Clinical Review (Last Reviewed 03/07/20 @ 11:11 by Pushpa Levy NP) Palliative care patient (Acute) Cellulitis of left lower leg (Acute) Type 2 diabetes mellitus (Acute) Discharge planning issues (Acute) DVT prophylaxis (Acute) bee venom protein (honey bee) Allergy (Unknown, Unverified 03/07/20 08:45) Penicillins Allergy (Unknown, Unverified 03/07/20 08:45) strawberry Allergy (Unknown, Unverified 03/07/20 08:45) Height 5 ft 5.35 in Weight 134.3 kg - Renal Dosing Renal Dosing: BUN 18 mg/dL (7-18) D 03/09/20 06: Creatinine 0.84 mg/dL (0.55-1.02) 03/09/20 06:29 Medications needing adjustments: Reviewed (eCrCl 85.8ml/min using adjusted body weight) - Anticoagulation Anticoagulation: Hgb 9.4 g/dL (11.2-15.7) L 03/09/20 06:29 Hct 31.5 % (36.0-46.0) L 03/09/20 06:29 Plt Count 346 10^3/uL (130-400) 03/09/20 06: Creatinine 0.84 mg/dL (0.55-1.02) 03/09/20 06:29 DVT Prohphylaxis: Reviewed Medications: Aspirin Therapeutic Anticoagulation: Reviewed Medications: Apixaban - Opiate Usage Evaluate Pain Scale/Pains Meds: N/A - Relevant Labs Sodium 135 mmol/L (136-145) L 03/09/20 06:29 Potassium 4.6 mmol/L (3.5-5.1) 03/09/20 06:29 Chloride 100 mmol/L (98-107) 03/09/20 06: Magnesium 1.8 mg/dL (1.8-2.4) 03/08/20 06:25 C-Reactive Protein 14.25 mg/dL (0.0-0.3) H 03/09/20 06:29 Electrolytes, C-Reactive P, ESR: Reviewed - DM Control DM Control: Glucose 127 mg/dL (74-106) H 03/09/20 06:29 Finger Stick Blood Glucose 166 Finger Stick Blood Glucose 166 Finger Stick Blood Glucose 136 Finger Stick Blood Glucose 132 Insulin Dosing: Reviewed (aspart per SS) - Heart Failure/MO EF%, FLORI's, B-Blockers, Diuretics: Reviewed - BP Control BP Control: Blood Pressure 105/51 If elevated: Reviewed - IV to PO Switch IV Medications: Reviewed - Home Meds Home Med List reviewed: Intervened Relevent Home Meds Not ordered & why?: Celecoxib, furosemide, metformin (aspart ordered); Confirmed med list with MAR sent from the [employer]. - Current meds Current Medication Order Review: Reviewed - Comments Comments/Follow Ups: Cefepime 2mg q8h + Clindamycin 900mg q8h for cellulitis
--- NOTE | 2020-03-10 14:17 | PCPN_ITS ---
Date of service: 03/10/20 Time of Service: 08:17 Assessment and Plan Assessment and plan (1) Cellulitis of left lower leg: Status: Acute (2) Atrial fibrillation: Status: Chronic Qualifiers: Atrial fibrillation type: unspecified Qualified Code(s): I48.91 - Unspecified atrial fibrillation (3) Type 2 diabetes mellitus: Status: Acute Qualifiers: Diabetes mellitus contract processor insulin use: without longterm use Diabetes mellitus complication status: without complication Qualified Code(s): E11.9 - Type 2 diabetes mellitus without complications (4) Palliative care patient: Status: Acute Assessment and plan: We did speak about her diabetes. Her most recent A1c is 5.8 which is excellent. Today's blood sugar was 130 6 in the morning. We talked about the reasoning behind staff keeping such a close eye on it and how it was very important to keep her sugars down in order to heal Herson and I did go over her wound. He is going to remark the new area on the lateral aspect. She may feel less discomfort with a little bit of triamcinolone to help to reduce some of the inflammation. Discussion again about COLST form. She has not yet had a good discussion with her daughter although she knows its important and actually use the words that it is a gift to her daughter. Her daughter does not want her mom to and so wants to do everything possible. 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 she really does not want anything to do with chest compressions, electricity, or intubation. She does not yet want to sign this because she wants to first of all discussed this with her daughter. I will stop back in a few days. Please note there were 2 nurses in the room while we had the discussion about what she wanted on her COLST form I have spent more than 50% of time in counseling with this patient. Subjective Subjective Interval history since last seen: Marlen is a 69-year-old woman who is in the hospital due to cellulitis. She is presently on IV antibiotics. She does have a Hoffmann in place due to immobility. She also has yeast infection under both breasts and in the groin. She states that she is feeling better. She has less pain with her rashes. She still has a lot of pain in the back of her leg. At one point when she got up from the bed she felt that her catheter had come loose because of the amount of drainage she had in the back of her leg. She states that she has not yet had a conversation with her daughter. When she broached the conversation regarding CODE STATUS her daughter said she did not want to talk about it at that time. Marlen states that one of her fears is that she might lose her leg. She was happy to hear that her leg did not have osteomyelitis and was less likely to lose it at this point. Exam Narrative Exam Narrative: Laboratory Tests 01/16/20 04:00 Hemoglobin A1c 5.8 H Marlen is sitting in her chair. She is quite uncomfortable as she just moved over from the bed and the pillows were not adjusted quite right. She has less redness in the leg, but there is extension of above the marker line in the lateral aspect. It is still fiery red distally. She does have a large 10 cm blister on the back of her leg and several other small blisters on the front of her leg. There is oozing of serous fluid. Her feet do not look as swollen as they did 2 days ago. Objective Last Vital Signs Temp 99.0 F 03/10/20 07:37 Pulse 69 03/10/20 07:37 Resp 17 03/10/20 07:37 BP 105/51 L 03/10/20 07:37 Pulse Ox 97 03/10/20 07:37
--- NOTE | 2020-03-10 14:44 | PGE_ITS ---
Date of Service Date of service: 03/10/20 Time of Service: 14:44 Assessment and Plan Assessment and plan (1) Cellulitis of left lower leg: Status: Acute Assessment and plan: feeling better with decreased pain redness and swelling Wound culture with group A strep. On cefepime and clindamycin Day 4 Wound care referral for dressing changes/recs placed Continue to trend CRP, CBC weekly CT scan reveals: There is extensive left lower extremity skin thickening and edema which is somewhat confluent in the pretibial region. No fractures nor obvious bone lesions evident. However, please note the abnormal osseous findings on recent MRI scan of 01/19/2020. She did have an MRI on 01/13 without evidence osteomyelitis. (2) Atrial fibrillation: Status: Chronic Assessment and plan: On eliquis, regular rate and rhythm continue BB, CCB Qualifiers: Atrial fibrillation type: unspecified Qualified Code(s): I48.91 - Unspecified atrial fibrillation (3) Type 2 diabetes mellitus: Status: Acute Assessment and plan: Will hold metformin and glipizide while in the hospital bgl this am 132-166 SSI with ACHS fingersticks Sensitive sliding scale Qualifiers: Diabetes mellitus exterminator helper termite insulin use: without exterminator helper termite use Diabetes mellitus complication status: without complication Qualified Code(s): E11.9 - Type 2 diabetes mellitus without complications (4) Discharge planning issues: Status: Acute Assessment and plan: case management following for discharge planning discussed with Dr Lane Subjective Subjective Patient reports: no new complaints, feels better, tolerating liquids well, tolerating a regular diet and afebrile; denies shortness of breath Interval history since last seen: continues to maintain kebede, no BM which she states is typical to go 4-5 days, today day 5. Exam Const General: cooperative, comfortable, no acute distress and ill appearing chronically Nutritional Appearance: obese morbidly obese Orientation: alert, awake and oriented x3 HENMT Head: normal to inspection, normocephalic and atraumatic Eyes Sclera: sclerae normal Pupils: PERRL EOM: EOM intact bilaterally Neck Neck: normal visual inspection, full ROM and no JVD Chest Chest: normal inspection of the chest Resp Effort & Inspection: normal respiratory effort and able to speak in complete sentences Auscultation: clear to auscultation bilaterally, crackles on the left in the lower lung askew and 1/[address] up and diminished lung sounds Cardio Jugular venous pressure: no JVD Rate: regular rate Rhythm: regular rhythm Heart Sounds: murmur GI Inspection: large pannus and obesity Palpation: soft and no hepatosplenomegaly Auscultation: normal bowel sounds Skin General skin exam: erythema and excoriation Lesions: other (sacral wound not assessed. ) Wounds: wound noted and wounds noted (large blister to wound on calf with small areas below distal to ankle ) Neuro General: patient alert, patient awake and patient oriented x3 Cognition: normal cognition Speech: speech normal Extrem General: normal to inspection, full ROM and clubbing, cyanosis or edema noted Right lower extremity: normal to inspection Psych Appearance: grossly normal Mental Status: mental status grossly normal Speech and Movement: speech and movement normal Mood: congruent mood Affect: normal affect Attitude: cooperative Objective Last Vital Signs Temp 37.2 C 03/10/20 07:37 Pulse 69 03/10/20 07:37 Resp 17 03/10/20 07:37 BP 105/51 L 03/10/20 07:37 Pulse Ox 97 03/10/20 07:37
[2020-03-10 15:43] VITALS: BP 138/57; PULSE 69; RESP 16; TEMP 36.8; O2SAT 98
--- NOTE | 2020-03-10 16:06 | CHAPLAIN ---
Marlen was in bed when I visited. We didn't discuss her health or her emotions about her health issues, although she said she believes she 'll be here a while. From Dr. Shetty's Palliative Care note, Marlen has been struggling to talk with her daughter about Marlen's code status. I haven't talked with Marlen about her daughter, but will approach that topic on my next visit.
--- NOTE | 2020-03-10 17:22 | PDOC.CMPRO ---
- If Service Date Differs Date of service: 03/10/20 Time of Service: 17:22 Care Management Progress Note S/O: Marlen was sitting up in her chair when CM met with her. She stated that she continues to have pain in her leg, and that her dressing changes are very painful. She stated that she is worried about losing her leg, so she is willing to deal with the pain that she is experiencing in order to properly treat her cellulitis. She met with Dr. Shetty regarding her goals of care, and she would like to consult her daughter before signing a COLST form, but she does not want chest compressions, electricity, or intubation. She remains on IV abx, the course of this treatment has yet to be identified. If she needs terminal block assembler IV abx, she will transition to [facility], but at this time she is not medically cleared for that transition, as she still requires daily visits from the provider. CM will continue to follow. A: Marlen is a 69 year old female admitted to [facility] on 03/07/20 with Cellulitis. P: Marlen continues to be closely monitored. She may need group home abx treatment, which she will likely remain at [facility] for, depending on the course. She will return to the [facility] when medically cleared. She will transport via [facility] w/c van, coordinated by CM. CM will continue to follow.
[2020-03-10] MEDS: Normal Saline Flush 10 ML SYR IVP ×2 (21:43→22:51)
[2020-03-10 21:51] VITALS: BP 101/60; PULSE 68; RESP 20; TEMP 36.8; O2SAT 98
[2020-03-11] MEDS: Acetaminophen 500 MG TAB 1000 MG PO ×2 (00:02→04:48)
[2020-03-11] MEDS: traMADol 50 MG TAB PO ×3 (02:05→18:48)
[2020-03-11] MEDS: Normal Saline Flush 10 ML SYR IVP ×2 (04:48→16:30)
[2020-03-11] MEDS: CEFEPIME 2 GM in Normal Saline 100 ML IVPB ×3 (04:49→19:21)
[2020-03-11 05:03] VITALS: BP 115/69; PULSE 63; RESP 16; TEMP 36; O2SAT 94
[2020-03-11] MEDS: Levothyroxine 75 MCG TAB 37.5 MCG PO (05:43)
[2020-03-11] MEDS: CLINDAMYCIN 900 MG/50 ML BAG 50 MG IVPB ×3 (05:44→21:29)
[2020-03-11] MEDS: Budesonide/Formoterol 160/4.5 6 GM 60 PUFF INH IH ×2 (08:07→19:21)
[2020-03-11] MEDS: Tiotropium Bromide-Respimat 10 PUFF INH IH (08:07)
[2020-03-11 08:18] VITALS: BP 105/62; PULSE 64; RESP 20; TEMP 35.9; O2SAT 97
[2020-03-11] MEDS: Ferrous Sulfate 325 MG TAB PO ×2 (08:21→19:20)
[2020-03-11] MEDS: Apixaban 5 MG TAB PO ×2 (08:21→19:20)
[2020-03-11] MEDS: Tolterodine 2 MG CAPCR 4 MG PO (08:22)
[2020-03-11] MEDS: dilTIAZem CD 120 MG CAPCR 240 MG PO (08:22)
[2020-03-11] MEDS: Aspirin E.C. 81 MG TABEC PO (08:23)
[2020-03-11] MEDS: Omeprazole 20 MG CAPCR 40 MG PO (08:23)
[2020-03-11] MEDS: Ascorbic Acid 500 MG TAB PO ×2 (08:23→19:20)
[2020-03-11] MEDS: Citalopram 20 MG TAB 40 MG PO (08:23)
[2020-03-11] MEDS: Cyanocobalamin 100 MCG TABLET PO (08:23)
[2020-03-11] MEDS: Metoprolol 25 MG TAB PO ×2 (08:23→19:20)
[2020-03-11] MEDS: Folic Acid 1 MG TAB PO (08:24)
[2020-03-11] MEDS: Amiodarone 200 MG TAB PO ×2 (08:24→19:20)
--- NOTE | 2020-03-11 08:25 | CMPROGNOTE_ITS ---
Care Management Progress Note S/O: Marlen remains on IV abx, with a plan of switching to oral antibiotics on 03/14/20. She will return to the [facility] on 03/15/20, if oral coverage proves to be adequate. Covid to be re-swabbed on Sunday for anticipated return to the [facility]. CM notified [facility] admissions personnel; Lizbeth of current discharge plan. CM will continue to follow. A: Marlen is a 69 year old female admitted to [facility] on 03/07/20 with Cellulitis. P: Marlen continues to be closely monitored. She will return to the [facility] when medically cleared. She will transport via [facility] w/c van, coordinated by RYAN. CM will continue to follow.
--- NOTE | 2020-03-11 08:25 | PDOC.CMPRO ---
Care Management Progress Note S/O: Marlen remains on IV abx, with a plan of switching to oral antibiotics on 03/14/20. She will return to the [facility] on 03/15/20, if oral coverage proves to be adequate. Covid to be re-swabbed on Sunday for anticipated return to the [facility]. CM notified [facility] admissions personnel; Lizbeth of current discharge plan. CM will continue to follow. A: Marlen is a 69 year old female admitted to [facility] on 03/07/20 with Cellulitis. P: Malren continues to be closely monitored. She will return to the [facility] when medically cleared. She will transport via [facility] w/c van, coordinated by RYAN. CM will continue to follow.
[2020-03-11] MEDS: Normal Saline Flush 10 ML SYR 20 ML IVP ×2 (09:46→19:21)
[2020-03-11] MEDS: Nystatin POWDER 15 GM JAR TP ×3 (09:46→19:23)
--- NOTE | 2020-03-11 09:52 | PGE_ITS ---
Date of Service Date of service: 03/11/20 Time of Service: 09:52 Assessment and Plan Assessment and plan (1) Cellulitis of left lower leg: Status: Acute Assessment and plan: continues feeling better with decreased pain redness and swelling Wound culture growing group A strep and MRSA On cefepime and clindamycin Day 5, will downstep to augmentin and oral clinda on day 7 (Sunday) and if remains improved on orals will discharge back to the [facility] on Sunday. Wound care referral for dressing changes/recs placed Continue to trend CRP, CBC weekly CT scan reveals: There is extensive left lower extremity skin thickening and edema which is somewhat confluent in the pretibial region. No fractures nor obvious bone lesions evident. However, please note the abnormal osseous findings on recent MRI scan of 01/19/2020. She did have an MRI on 01/13 without evidence osteomyelitis. (2) Atrial fibrillation: Status: Chronic Assessment and plan: On eliquis, regular rate and rhythm continue BB, CCB Qualifiers: Atrial fibrillation type: unspecified Qualified Code(s): I48.91 - Unspecified atrial fibrillation (3) Type 2 diabetes mellitus: Status: Acute Assessment and plan: metformin and glipizide on hold while in the hospital, will resume at discharge blood sugars last 24 hours 129-166 SSI with ACHS fingersticks Sensitive sliding scale Qualifiers: Diabetes mellitus complication status: without complication Diabetes mellitus intermediate insulin use: without intermediate use Qualified Code(s): E11.9 - Type 2 diabetes mellitus without complications (4) Discharge planning issues: Status: Acute Assessment and plan: case management following for discharge planning plan to discharge Sunday if stable on oral antibiotics Covid testing ordered for SundayMar 14 in anticipation of discharge SundayMar [address] Subjective Subjective Patient reports: no new complaints, feels better, tolerating liquids well, tolerating a regular diet and afebrile Interval history since last seen: continues to improve. Exam Const General: cooperative, comfortable, no acute distress and ill appearing chronically Nutritional Appearance: obese morbidly obese Orientation: alert, awake and oriented x3 HENMT Head: normal to inspection, normocephalic and atraumatic Eyes Sclera: sclerae normal Pupils: PERRL EOM: EOM intact bilaterally Neck Neck: normal visual inspection, full ROM and no JVD Chest Chest: normal inspection of the chest Resp Effort & Inspection: normal respiratory effort and able to speak in complete sentences Auscultation: clear to auscultation bilaterally, crackles on the left in the lower lung askew and 1/3 way up and diminished lung sounds Cardio Jugular venous pressure: no JVD Rate: regular rate Rhythm: regular rhythm Heart Sounds: murmur GI Inspection: large pannus and obesity Palpation: soft and no hepatosplenomegaly Auscultation: normal bowel sounds Skin General skin exam: erythema and excoriation Lesions: other (sacral wound not assessed. ) Wounds: wound noted and wounds noted (large blister to wound on calf with small areas below distal to ankle ) Neuro General: patient alert, patient awake and patient oriented x3 Cognition: normal cognition Speech: speech normal Extrem General: normal to inspection, full ROM and clubbing, cyanosis or edema noted Right lower extremity: normal to inspection Psych Appearance: grossly normal Mental Status: mental status grossly normal Speech and Movement: speech and movement normal Mood: congruent mood Affect: normal affect Attitude: cooperative Objective Last Vital Signs Temp 35.9 C L 03/11/20 08:18 Pulse 64 03/11/20 08:18 Resp 20 03/11/20 08:18 BP 105/62 03/11/20 08:18 Pulse Ox 97 03/11/20 08:18
[2020-03-11 10:28] VITALS: O2SAT 37
[2020-03-11] MEDS: Docusate Sodium 100 MG CAP PO ×2 (10:44→19:20)
[2020-03-11] MEDS: Polyethylene Glycol 3350 17 GM PACKET PO (10:44)
[2020-03-11] MEDS: Insulin Aspart 300 UNITS/3 ML PEN SC (11:36)
--- NOTE | 2020-03-11 12:37 | W.NUTRFU ---
Date of service: 03/11/20 Time of Service: 12:37 Nutritional Follow up NOTE: Met with Marlen today to discuss meal options and ways to increase protein intake. She continues to refuse liquid protein, ensure clear, glucerna and double protein portions. She is wiling to complete most of her meals and add a 1/2 cup portion daily of cottage cheese (23 g protein). Reviewed increased nutrient needs for optimal healing. Taking MVI for repletion. Blood sugars have been in good control and should support healing. will continue to follow. Time Spent in Nutritional Counseling and Treatment: 15
[2020-03-11 15:44] VITALS: BP 111/57; PULSE 62; RESP 15; TEMP 36.7; O2SAT 98
[2020-03-11] MEDS: Milk of Magnesia 30 ML CUP PO (16:30)
[2020-03-11 23:48] VITALS: BP 123/71; PULSE 64; RESP 18; TEMP 36.4; O2SAT 96
[2020-03-12] MEDS: CEFEPIME 2 GM in Normal Saline 100 ML IVPB ×3 (03:35→20:45)
[2020-03-12] MEDS: Levothyroxine 75 MCG TAB 37.5 MCG PO (05:23)
[2020-03-12] MEDS: CLINDAMYCIN 900 MG/50 ML BAG 50 MG IVPB ×3 (05:23→21:48)
[2020-03-12 07:37] VITALS: BP 135/60; PULSE 66; RESP 16; TEMP 37; O2SAT 98
[2020-03-12] MEDS: Tiotropium Bromide-Respimat 10 PUFF INH IH (07:48)
[2020-03-12] MEDS: Budesonide/Formoterol 160/4.5 6 GM 60 PUFF INH IH ×2 (07:49→20:46)
[2020-03-12] MEDS: Apixaban 5 MG TAB PO ×2 (08:33→20:45)
[2020-03-12] MEDS: Docusate Sodium 100 MG CAP PO ×2 (08:33→20:45)
[2020-03-12] MEDS: Amiodarone 200 MG TAB PO ×2 (08:33→20:45)
[2020-03-12] MEDS: Cyanocobalamin 100 MCG TABLET PO (08:33)
[2020-03-12] MEDS: Folic Acid 1 MG TAB PO (08:33)
[2020-03-12] MEDS: Metoprolol 25 MG TAB PO ×2 (08:33→20:45)
[2020-03-12] MEDS: Tolterodine 2 MG CAPCR 4 MG PO (08:33)
[2020-03-12] MEDS: Ascorbic Acid 500 MG TAB PO ×2 (08:33→20:45)
[2020-03-12] MEDS: Ferrous Sulfate 325 MG TAB PO ×2 (08:33→20:45)
[2020-03-12] MEDS: Omeprazole 20 MG CAPCR 40 MG PO (08:34)
[2020-03-12] MEDS: Citalopram 20 MG TAB 40 MG PO (08:34)
[2020-03-12] MEDS: Aspirin E.C. 81 MG TABEC PO (08:34)
[2020-03-12] MEDS: dilTIAZem CD 120 MG CAPCR 240 MG PO (08:34)
[2020-03-12] MEDS: Polyethylene Glycol 3350 17 GM PACKET PO (08:34)
[2020-03-12] MEDS: Normal Saline Flush 10 ML SYR 20 ML IVP ×2 (08:35→20:45)
[2020-03-12] MEDS: Nystatin POWDER 15 GM JAR TP ×3 (08:40→20:50)
[2020-03-12] MEDS: Acetaminophen 500 MG TAB 1000 MG PO (11:50)
[2020-03-12] MEDS: traMADol 50 MG TAB PO ×3 (11:51→21:48)
[2020-03-12] MEDS: Insulin Aspart 300 UNITS/3 ML PEN SC (11:54)
[2020-03-12] MEDS: Normal Saline Flush 10 ML SYR IVP (14:00)
--- NOTE | 2020-03-12 14:25 | CMPROGNOTE_ITS ---
- If Service Date Differs Date of service: 03/12/20 Time of Service: 14:25 Care Management Progress Note S/O: Marlen is on day 6 of a 7 day course of IV abx. The plan is to switch her to oral antibiotics on 03/14/20, and for her to return to the [facility] on 03/15/2020, as long as oral abx coverage proves to be adequate. A covid test is to be done on Sunday for anticipated return to the [facility]. CM will continue to follow. A: Marlen is a 69 year old female admitted to [facility] on 03/07/20 with cellulitis. P: Plan remains for Marlen to return to the [facility] when medically cleared. She will transport via [facility] wheelchair van, coordinated by CM. CM will continue to support patient and discharge planning needs.
--- NOTE | 2020-03-12 15:20 | W.PM.PROGNOT ---
Date of Service Date of service: 03/12/20 Time of Service: 15:20 Assessment and Plan Assessment and plan (1) Cellulitis of left lower leg: Status: Acute Assessment and plan: continues feeling better with decreased pain redness and swelling Wound culture growing group A strep and MRSA On cefepime and clindamycin Day 6 of 7, will transition to augmentin and oral clindamycin on day 7 (Sunday) and if remains improved on orals will discharge back to the [facility] on Sunday. Wound care referral for dressing changes/recs placed Continue to trend CRP, CBC weekly CT scan reveals: There is extensive left lower extremity skin thickening and edema which is somewhat confluent in the pretibial region. No fractures nor obvious bone lesions evident. However, please note the abnormal osseous findings on recent MRI scan of 01/19/2020. She did have an MRI on 01/13 without evidence osteomyelitis. (2) Atrial fibrillation: Status: Chronic Assessment and plan: On eliquis, regular rate and rhythm continue BB, CCB (diltiazem CD 240 mg every morning and Lopressor 25 mg p.o. twice daily) Qualifiers: Atrial fibrillation type: unspecified Qualified Code(s): I48.91 - Unspecified atrial fibrillation (3) Type 2 diabetes mellitus: Status: Acute Assessment and plan: metformin and glipizide on hold while in the hospital, will resume at discharge blood sugars last 24 hours 129-166 SSI with ACHS fingersticks Sensitive sliding scale Qualifiers: Diabetes mellitus assistant terminal manager insulin use: without assistant terminal manager use Diabetes mellitus complication status: without complication Qualified Code(s): E11.9 - Type 2 diabetes mellitus without complications (4) Discharge planning issues: Status: Acute Assessment and plan: case management following for discharge planning plan to discharge Sunday if stable on oral antibiotics Covid testing ordered for SundayMar 14 in anticipation of discharge SundayMar [address] Subjective Subjective Interval history since last seen: Patient continues to improve she remains afebrile. 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 She is tolerating her diet. She has no other complaints. Exam Narrative Exam Narrative: Nursing reports improvement in her cellulitis. I examined her leg with the patient's primary nurse and the wound care nurse as they were changing the dressing and debriding the skin. The area of erythema has receded considerably. At its peak it was just below the patella and leading down to the dorsum of her foot to her toes. The area of intense erythema has receded to about half the size but it had been. She is having some desquamation of the skin blisters. She still have some induration of the skin but her wound care nurse is reluctant to start Adalberto wraps yet just yet Objective Last Vital Signs Temp 37 C 03/12/20 07:37 Pulse 66 03/12/20 07:37 Resp 16 03/12/20 07:37 BP 135/60 03/12/20 07:37 Pulse Ox 98 03/12/20 07:37
--- NOTE | 2020-03-12 16:05 | WOUNDCONS ---
- If Service Date Differs Date of service: 03/12/20 Time of Service: 15:30 Wound Initial Evaluation Narrative: This is a follow up to the wound consult of March 07. Patient still c/o pain in the leg, and it is apparent that pain is present with palpation and debridement. Rationale for follow up with wound consult is discussed with patient and she agrees to have this wound nurse look at the leg. - Wound Left Lower Tib/Fib(lower leg) Wound Type: Other (cellulitis) Wound General Appearance: Unapproximated, Healing Well Wound Bed Greatest Portion: Blanched/Dull Wound Bed Lesser Portion: Red (Granulation) Wound Surrounding Tissue Appearance: Bright Red Percent of Wound Bed Granulated/Red: 0 Percent of Wound Bed Slough/Yellow: 0 Percent of Wound Bed Eschar/Black: 0 Wound Length: 23.5 cm Wound Width: 42 cm Wound Depth: 0.3 cm Wound Drainage Amount: Large Wound Drainage Odor: Strong Wound Drainage Description: Serous Wound Topical Solution/Irrigant: Saline Irrigant Wound Debridement Method: Mechanical Wound Debridement Result: Healthy Tissue Revealed Wound Debridement Amount of Tissue Removed: Moderate ( and calloused skin removed) - Circulation, Sensation, Motion Edema Degree: 2+ Peripheral Pulse Strength: Weak Capillary Refill: Less than 3 seconds Sensation Description: [place], Pain Skin Color: Erythema (erythema greatly decreased) - Pain Pain Level: 7 Pain Scale Used: Visual Analog Scale 0-10 Pain Description: Acute Pain Duration (Hours): 1 (with palpation and debridement) Pain Duration/Frequency: Intermittent, With Palpation area of erythema has decreased, and diameter of leg decreasing. Still needs to have prn medication for pain , pins and needles, very intense with debriding and palpation. Dr. Willett agrees nd/t blister still present on the back of the leg though open with depth, that manual compression should still not be applied yet.He agrees that current treatment is working, he suggested increasing elevation with pillows - Treatment/Dressing Change Topicals/Ointments: None Cleanse With: Anasept, Debrisoft Dressing Types: Kerlix (Gauze Roll), Opti-Lock - Recomendation Recomendation:: continue current dressing change for one more week Physcian/Nurse Practioner Notified: Yes (Dr. Willett) Treatment Time - Time Total Time Spent with Patient: 30 minute - Patient Will be Seen Weekly Treatment: daily - For: For:: 1 week
[2020-03-12 16:29] VITALS: BP 127/77; PULSE 59; RESP 17; TEMP 36.8; O2SAT 97
[2020-03-12 20:45] VITALS: O2SAT 97
[2020-03-12 23:56] VITALS: BP 129/60; PULSE 64; RESP 18; TEMP 36.7; O2SAT 94
[2020-03-13] MEDS: CEFEPIME 2 GM in Normal Saline 100 ML IVPB ×3 (03:37→20:06)
[2020-03-13] MEDS: Normal Saline Flush 10 ML SYR IVP ×3 (03:38→07:42)
[2020-03-13] MEDS: Levothyroxine 75 MCG TAB 37.5 MCG PO (05:57)
[2020-03-13] MEDS: CLINDAMYCIN 900 MG/50 ML BAG 50 MG IVPB ×3 (05:57→21:32)
[2020-03-13 06:14] VITALS: BP 114/65; PULSE 64; RESP 16; TEMP 36.2; O2SAT 97
[2020-03-13 07:39] VITALS: BP 116/66; PULSE 70; RESP 14; TEMP 37.2; O2SAT 93
[2020-03-13] MEDS: Aspirin E.C. 81 MG TABEC PO (07:41)
[2020-03-13] MEDS: Apixaban 5 MG TAB PO ×2 (07:41→20:04)
[2020-03-13] MEDS: dilTIAZem CD 120 MG CAPCR 240 MG PO (07:41)
[2020-03-13] MEDS: Metoprolol 25 MG TAB PO ×2 (07:41→20:04)
[2020-03-13] MEDS: Docusate Sodium 100 MG CAP PO ×2 (07:41→20:04)
[2020-03-13] MEDS: Citalopram 20 MG TAB 40 MG PO (07:41)
[2020-03-13] MEDS: Ascorbic Acid 500 MG TAB PO ×2 (07:41→20:04)
[2020-03-13] MEDS: Omeprazole 20 MG CAPCR 40 MG PO (07:41)
[2020-03-13] MEDS: Amiodarone 200 MG TAB PO ×2 (07:41→20:05)
[2020-03-13] MEDS: Folic Acid 1 MG TAB PO (07:41)
[2020-03-13] MEDS: Ferrous Sulfate 325 MG TAB PO ×2 (07:41→20:04)
[2020-03-13] MEDS: Tolterodine 2 MG CAPCR 4 MG PO (07:41)
[2020-03-13] MEDS: Cyanocobalamin 100 MCG TABLET PO (07:41)
[2020-03-13] MEDS: Nystatin POWDER 15 GM JAR TP ×3 (07:42→20:06)
[2020-03-13] MEDS: Normal Saline Flush 10 ML SYR 20 ML IVP ×2 (07:42→20:05)
[2020-03-13 08:11] VITALS: O2SAT 98
[2020-03-13] MEDS: Tiotropium Bromide-Respimat 10 PUFF INH IH (08:11)
[2020-03-13] MEDS: Budesonide/Formoterol 160/4.5 6 GM 60 PUFF INH IH ×2 (08:11→20:05)
--- NOTE | 2020-03-13 10:48 | W.PM.PROGNOT ---
Date of Service Date of service: 03/13/20 Time of Service: 10:48 Assessment and Plan Assessment and plan (1) Cellulitis of left lower leg: Start date: 03/13/20 Start time: 11:15 Status: Acute Assessment and plan: continues feeling better with decreased pain redness and swelling Wound culture growing group A strep and MRSA On cefepime and clindamycin Day 7 of 7, will transition to augmentin and oral clindamycin on day 7 (Sunday) and if remains improved on orals will discharge back to the [facility] on Sunday. Wound care referral for dressing changes/recs placed Continue to trend CRP, CBC weekly CT scan reveals: There is extensive left lower extremity skin thickening and edema which is somewhat confluent in the pretibial region. No fractures nor obvious bone lesions evident. However, please note the abnormal osseous findings on recent MRI scan of 01/19/2020. (2) Atrial fibrillation: Start date: 03/13/20 Start time: 11:16 Status: Chronic Assessment and plan: On eliquis, regular rate and rhythm continue BB, CCB Qualifiers: Atrial fibrillation type: unspecified Qualified Code(s): I48.91 - Unspecified atrial fibrillation (3) GERD (gastroesophageal reflux disease): Start date: 03/13/20 Start time: 11:17 Status: Chronic Assessment and plan: Continue omeprazole Qualifiers: Esophagitis presence: esophagitis presence not specified Qualified Code(s): K21.9 - Gastro-esophageal reflux disease without esophagitis (4) Type 2 diabetes mellitus: Start date: 03/13/20 Start time: 11:17 Status: Acute Assessment and plan: Will hold metformin and glipizide while in the hospital SSI with AChs fingersticks Sensitive sliding scale Qualifiers: Diabetes mellitus complication status: without complication Diabetes mellitus terminal make up operator insulin use: without senior care use Qualified Code(s): E11.9 - Type 2 diabetes mellitus without complications (5) Discharge planning issues: Start date: 03/13/20 Start time: 11:17 Status: Acute Assessment and plan: case management following for discharge planning plan to discharge Sunday if stable on oral antibiotics Covid testing ordered for SundayMar 13 in anticipation of discharge SundayMar [address] Davidson Subjective Subjective Patient reports: feels better Interval history since last seen: Feels great looks well sitting up in chair. Nursing concerned for rash she does have plaque psoriasis which is broken out on her back, otherwise no erythema or itching. Repeat covid for the [place] on Sunday Exam Narrative Exam Narrative: Nursing reports improvement in her cellulitis. Did not examine wound. The area of erythema has receded considerably. At its peak it was just below the patella and leading down to the dorsum of her foot to her toes. The area of intense erythema has receded to about half the size it had been. She is having some desquamation of the skin blisters. She still have some induration of the skin but her wound care nurse is reluctant to start Adalberto wraps just yet. Objective Last Vital Signs Temp 37.2 C 03/13/20 07:39 Pulse 70 03/13/20 07:39 Resp 14 03/13/20 07:39 BP 116/66 03/13/20 07:39 Pulse Ox 98 03/13/20 08:11
[2020-03-13] MEDS: traMADol 50 MG TAB PO ×2 (11:38→20:03)
[2020-03-13] MEDS: Acetaminophen 500 MG TAB 1000 MG PO (11:38)
--- NOTE | 2020-03-13 14:08 | PDOC.CMPRO ---
- If Service Date Differs Date of service: 03/13/20 Time of Service: 14:08 Care Management Progress Note S/O: Marlen was sleeping when CM attempted to visit with her. Per report, her IV abx course will be completed today, and she will be changed to oral abx today. If she continues to improve on oral abx, she will be ready for discharge on Sunday, and will return to the [facility]. CM will continue to follow. A: Marlen is a 69 year old female admitted to [facility] on 03/07/20 with cellulitis. P: Plan remains for Marlen to return to the [facility] when medically cleared. She will transport via [facility] wheelchair van, coordinated by CM. CM will continue to support patient and discharge planning needs.
[2020-03-13 15:25] VITALS: BP 111/62; PULSE 60; RESP 16; TEMP 36.1; O2SAT 96
[2020-03-14] VITALS: BP 142/67; PULSE 66; RESP 17; TEMP 36.2; O2SAT 92
[2020-03-14 02:30] LABS: COVID-19 RT-PCR UVMMC Result Negative (Negative)
[2020-03-14] MEDS: Levothyroxine 75 MCG TAB 37.5 MCG PO (06:17)
[2020-03-14 08:01] VITALS: BP 125/77; PULSE 72; RESP 17; TEMP 36; O2SAT 96
[2020-03-14] MEDS: Amoxicillin 875/Clav. 125 TAB PO ×2 (08:05→21:08)
[2020-03-14] MEDS: Omeprazole 20 MG CAPCR 40 MG PO (08:05)
[2020-03-14] MEDS: Aspirin E.C. 81 MG TABEC PO (08:05)
[2020-03-14] MEDS: Tolterodine 2 MG CAPCR 4 MG PO (08:05)
[2020-03-14] MEDS: Apixaban 5 MG TAB PO ×2 (08:06→21:09)
[2020-03-14] MEDS: Folic Acid 1 MG TAB PO (08:06)
[2020-03-14] MEDS: Amiodarone 200 MG TAB PO ×2 (08:06→21:09)
[2020-03-14] MEDS: Docusate Sodium 100 MG CAP PO ×2 (08:06→21:09)
[2020-03-14] MEDS: Ferrous Sulfate 325 MG TAB PO ×2 (08:06→21:10)
[2020-03-14] MEDS: Ascorbic Acid 500 MG TAB PO ×2 (08:06→21:09)
[2020-03-14] MEDS: Citalopram 20 MG TAB 40 MG PO (08:06)
[2020-03-14] MEDS: dilTIAZem CD 120 MG CAPCR 240 MG PO (08:06)
[2020-03-14] MEDS: Cyanocobalamin 100 MCG TABLET PO (08:06)
[2020-03-14] MEDS: Clindamycin 150 MG CAP 450 MG PO ×3 (08:06→21:11)
[2020-03-14] MEDS: Metoprolol 25 MG TAB PO ×2 (08:06→21:10)
[2020-03-14] MEDS: Acetaminophen 500 MG TAB 1000 MG PO (08:06)
[2020-03-14] MEDS: Normal Saline Flush 10 ML SYR IVP (08:07)
[2020-03-14] MEDS: Normal Saline Flush 10 ML SYR 20 ML IVP ×2 (08:07→21:11)
[2020-03-14] MEDS: Nystatin POWDER 15 GM JAR TP ×3 (08:07→21:11)
[2020-03-14 08:23] LABS: Abs Immature Grans 1.98 10^3/uL (0.0-0.06); HCT 32.4 % (36.0-46.0); HGB 9.5 g/dL (11.2-15.7); MCH 26.4 pg (27.0-33.0); MCHC 29.3 % (32.0-36.0); MPV 8.4 fL (8.0-11.0); Nucleated RBC 0 %; Platelet Count 427 10^3/uL (130-400); RDW 20.8 % (11.7-14.6); RDW-SD 67.9 fL; WBC 14.14 10^3/uL (4.4-10.8)
[2020-03-14 08:33] LABS: Anion Gap 0 mmol/L (3-11); BUN 11 mg/dL (7-18); CREATININE 0.64 mg/dL (0.55-1.02); Calcium 9.3 mg/dL (8.5-10.1); Chloride 99 mmol/L (98-107); Glucose 136 mg/dL (74-106); Potassium 4.5 mmol/L (3.5-5.1); Sodium 136 mmol/L (136-145)
[2020-03-14 08:52] LABS: C-Reactive Protein 4.63 mg/dL (0.0-0.3)
[2020-03-14 08:59] LABS: Absolute Neutrophil Count 9.47 10^3/uL (1.2-6.7); Bands % 4
[2020-03-14 09:00] LABS: Absolute Monocyte Count 0.99 10^3/uL (0.1-0.8)
[2020-03-14 09:01] LABS: Absolute Eosinophil Count 0.99 10^3/uL (0.0-0.7)
[2020-03-14 09:03] LABS: Anisocytosis 1+; Diff Comment Manual Differential; Hypochromasia 1+; Metamyelocytes % 2; Myelocytes % 5; Polychromasia Present
[2020-03-14] MEDS: Budesonide/Formoterol 160/4.5 6 GM 60 PUFF INH IH ×2 (09:03→21:13)
[2020-03-14] MEDS: Tiotropium Bromide-Respimat 10 PUFF INH IH (09:04)
[2020-03-14 09:06] VITALS: O2SAT 97
[2020-03-14 09:46] LABS: Procalcitonin 0.1 ng/mL
[2020-03-14] MEDS: traMADol 50 MG TAB PO ×2 (10:30→21:08)
--- NOTE | 2020-03-14 10:47 | W.PM.PROGNOT ---
Date of Service Date of service: 03/14/20 Time of Service: 10:47 Assessment and Plan Assessment and plan (1) Cellulitis of left lower leg: Start date: 03/14/20 Start time: 10:50 Status: Acute Assessment and plan: Finished 7 day course clindamycin with cefepime, tranistioned to augmentin today. Wound culture with group A strep. Recommend 14 day course of augmentin and with possible subsequent 1-2 week dosing will defer to PCP for further antibiotic regimen as wound heals. Continue wound care CRP trending down nicely from greater than 25 to 4.63, with procal from 4.0 to 0.1 Discharge to [facility] tomorrow Repeat COVID negative (2) Atrial fibrillation: Start date: 03/14/20 Start time: 10:53 Status: Chronic Assessment and plan: On eliquis, regular rate and rhythm continue BB, CCB Qualifiers: Atrial fibrillation type: unspecified Qualified Code(s): I48.91 - Unspecified atrial fibrillation (3) GERD (gastroesophageal reflux disease): Start date: 03/14/20 Start time: 10:54 Status: Chronic Assessment and plan: Continue omeprazole Qualifiers: Esophagitis presence: esophagitis presence not specified Qualified Code(s): K21.9 - Gastro-esophageal reflux disease without esophagitis (4) Type 2 diabetes mellitus: Start date: 03/14/20 Start time: 10:54 Status: Acute Assessment and plan: Will hold metformin and glipizide while in the hospital SSI with AChs fingersticks Sensitive sliding scale Qualifiers: Diabetes mellitus shelter insulin use: without shelter use Diabetes mellitus complication status: without complication Qualified Code(s): E11.9 - Type 2 diabetes mellitus without complications (5) Discharge planning issues: Start date: 03/14/20 Start time: 10:54 Status: Acute Assessment and plan: case management following for discharge planning plan to discharge Sunday if stable on oral antibiotics discussed with Dr. Davidson Subjective Subjective Patient reports: feels better Interval history since last seen: Feeling well. Sitting up in chair. BM yesterday. Looking forward to going back to the [facility] tomorrow. Transitioned to oral today. Labs improving, would obtain CRP and CBC weekly to trend, denies CP, SOB, N/V/D. Negative COVID Exam Narrative Exam Narrative: Nursing reports improvement in her cellulitis. The area of erythema has receded considerably. At its peak it was just below the patella and leading down to the dorsum of her foot to her toes. The area of intense erythema has receded to about half the size it had been. She is having some desquamation of the skin blisters. She still does have some induration of the skin but her wound care nurse is reluctant to start Adalberto wraps just yet. LSC on oxygen at baseline RRR, no JVD, GI obese with BS x 4 quads Objective Last Vital Signs Temp 36.0 C L 03/14/20 08:01 Pulse 72 03/14/20 08:01 Resp 17 03/14/20 08:01 BP 125/77 03/14/20 08:01 Pulse Ox 97 03/14/20 09:06 Laboratory Results - last 24 hr 03/13/20 03/14/20 03/14/20 09:30 08:15 08:15 WBC 14.14 H RBC 3.60 L Hgb 9.5 L Hct 32.4 L MCV 90.0 MCH 26.4 L MCHC 29.3 L RDW 20.8 H Plt Count 427 H MPV 8.4 Immature Gran % Neutrophils % 63.0 Band Neutrophils % 4 Lymphocytes % 12.0 Monocytes % 7.0 Eosinophils % 7.0 Basophils % 0.0 Metamyelocytes % 2 Myelocytes % 5 Nucleated RBC % 0 Absolute Neutrophils 9.47 H Absolute Lymphocytes 1.70 Absolute Monocytes 0.99 H Absolute Eosinophils 0.99 H Absolute Basophils 0.00 RBC Morphology See below Polychromasia Present Hypochromasia 1+ Anisocytosis 1+ Sodium 136 Potassium 4.5 Chloride 99 Carbon Dioxide 37.0 H Anion Gap 0 L BUN 11 Creatinine 0.64 Estimated GFR/1.73 m2 >= 60.00 Glucose 136 H Calcium 9.3 C-Reactive Protein 4.63 H Procalcitonin SARS-CoV-2 (PCR) Negative Nasopharyn COVID-19 PCR Not Applicable Ref Test Perform Site [facility] 03/14/20 08:15 WBC RBC Hgb Hct MCV MCH MCHC RDW Plt Count MPV Immature Gran % Neutrophils % Band Neutrophils % Lymphocytes % Monocytes % Eosinophils % Basophils % Metamyelocytes % Myelocytes % Nucleated RBC % Absolute Neutrophils Absolute Lymphocytes Absolute Monocytes Absolute Eosinophils Absolute Basophils RBC Morphology Polychromasia Hypochromasia Anisocytosis Sodium Potassium Chloride Carbon Dioxide Anion Gap BUN Creatinine Estimated GFR/1.73 m2 Glucose Calcium C-Reactive Protein Procalcitonin 0.1 SARS-CoV-2 (PCR) Nasopharyn COVID-19 PCR Ref Test Perform Site
[2020-03-14] MEDS: Insulin Aspart 300 UNITS/3 ML PEN SC (11:56)
--- NOTE | 2020-03-14 15:01 | CMPROGNOTE_ITS ---
- If Service Date Differs Date of service: 03/14/20 Time of Service: 15:01 Care Management Progress Note S/O: Marlen was sitting up in her chair when CM met with her. She reported that her abx have been changed to oral, and she is so happy that this means she will return home, to the [facility], soon. She reported that she has had her repeat Covid test, and shared how many times she has been tested at this point. She is very understanding about the protocols that are in place for her safety, and the safety of others. She shared that she is feeling much better, and that her wounds have been healing, although she still has pain in her leg. CM will coordinate her transportation via [facility] van tomorrow, if she is ready for discharge. CM will continue to follow. A: Marlen is a 69 year old female admitted to [facility] on 03/07/20 with cellulitis. P: Plan remains for Marlen to return to the [facility] when medically cleared. She will transport via [facility] wheelchair van, coordinated by CM. CM will continue to support patient and discharge planning needs.
[2020-03-14 15:16] VITALS: BP 132/73; PULSE 58; RESP 17; TEMP 36.5; O2SAT 98
--- NOTE | 2020-03-14 18:41 | WOUNDCARE ---
Wound Care Report Pt's primary nurse asked this scribe to assess LLE. Leg has 3-4+ edema, redness and open area on posterior calf from blister that has popped. Recommend changing treatment plan r/t dressing orders @ this time to help manage edema and subsequent serous drainage coming from LLE. Dr. Willett called, discussed with him who is in agreement and gave verbal order to change dressing to the following: Cleanse LLE with Anasept spray. Pat dry. Apply foam w/Ag WITHOUT border to open area. Apply 2 layer compression to LLE. Change Q3 days and PRN.
[2020-03-14 21:05] VITALS: O2SAT 98
[2020-03-14 21:27] VITALS: BP 136/79; PULSE 65; RESP 18; TEMP 36.5; O2SAT 98
[2020-03-15 02:49] VITALS: O2SAT 97
[2020-03-15 03:25] VITALS: BP 114/64; PULSE 63; RESP 18; TEMP 36; O2SAT 94
[2020-03-15] MEDS: Levothyroxine 75 MCG TAB 37.5 MCG PO (05:54)
[2020-03-15] MEDS: Tiotropium Bromide-Respimat 10 PUFF INH IH (07:48)
[2020-03-15] MEDS: Budesonide/Formoterol 160/4.5 6 GM 60 PUFF INH IH (07:48)
[2020-03-15 07:54] VITALS: BP 118/67; PULSE 65; RESP 20; TEMP 36.8; O2SAT 94
[2020-03-15] MEDS: Polyethylene Glycol 3350 17 GM PACKET PO (08:20)
[2020-03-15] MEDS: Normal Saline Flush 10 ML SYR 20 ML IVP (08:20)
[2020-03-15] MEDS: Insulin Aspart 300 UNITS/3 ML PEN SC (08:21)
[2020-03-15] MEDS: Nystatin POWDER 15 GM JAR TP (08:21)
[2020-03-15] MEDS: Tolterodine 2 MG CAPCR 4 MG PO (08:22)
[2020-03-15] MEDS: Amoxicillin 875/Clav. 125 TAB PO (08:22)
[2020-03-15] MEDS: Omeprazole 20 MG CAPCR 40 MG PO (08:22)
[2020-03-15] MEDS: dilTIAZem CD 120 MG CAPCR 240 MG PO (08:22)
[2020-03-15] MEDS: Apixaban 5 MG TAB PO (08:22)
[2020-03-15] MEDS: Ascorbic Acid 500 MG TAB PO (08:22)
[2020-03-15] MEDS: Citalopram 20 MG TAB 40 MG PO (08:22)
[2020-03-15] MEDS: Clindamycin 150 MG CAP 450 MG PO (08:22)
[2020-03-15] MEDS: Docusate Sodium 100 MG CAP PO (08:22)
[2020-03-15] MEDS: Amiodarone 200 MG TAB PO (08:23)
[2020-03-15] MEDS: Metoprolol 25 MG TAB PO (08:23)
[2020-03-15] MEDS: Aspirin E.C. 81 MG TABEC PO (08:23)
[2020-03-15] MEDS: Folic Acid 1 MG TAB PO (08:23)
[2020-03-15] MEDS: Cyanocobalamin 100 MCG TABLET PO (08:23)
[2020-03-15] MEDS: Ferrous Sulfate 325 MG TAB PO (08:23)
--- NOTE | 2020-03-15 08:29 | W.PM.DS.N ---
Date of service: 03/15/20 Time of Service: 08:30 DS: Diagnosis Discharge Diagnosis (1) Cellulitis of left lower leg: Start date: 03/15/20 Start time: 09:03 Status: Acute Asessment and Plan: Patient was admitted for cellulitis, wound culture grew strep A. Wound is improving with receding erythema, edema. WBC are improving. CRP down from 25 to 4 on admission with procal down from 4.0 to 0.1 from admission. She finished a 7 day course of cefepime with clindamycin. She was transitioned to augmentin BID and oral clindamycin, will treat for 2 weeks with possible additional 2 week course following initial 2 weeks. Trend weekly labs, cbc, crp Will defer to outpatient provider if Marlen needs additional antibiotics after 2 weeks of oral augmentin/clindamycin as they will be following her wound care. Continue wound care at [facility] per wound orders: *Sacrum- apply mepilex sacral for protection, change every 7 days or prn. *Left lower leg- 03/14-Cleanse LLE with Anasept spray. Pat dry. Apply foam w/Ag WITHOUT border to open area. Apply 2 layer compression to LLE. Change Q3 days and PRN. (2) Atrial fibrillation: Start date: 03/15/20 Start time: 09:07 Status: Chronic Asessment and Plan: RRR while inpatient. will continue outpatient BB and CCB, asa and elliquis (3) GERD (gastroesophageal reflux disease): Start date: 03/15/20 Start time: 09:07 Status: Chronic Asessment and Plan: Continue omeprazole (4) Type 2 diabetes mellitus: Start date: 03/15/20 Start time: 09:07 Status: Acute Asessment and Plan: Restart glipizide and metformin as an outpatient, continue Carb counting/heart healthy diet. above case discussed with Dr. Davidson who is in agreement. 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 She presented to ED on 03/07 after noticing her LLE turning erythemic with labs drawn 02/04 revealing an elevated WBC count of 23.91. ED procalcitonin was 4.0 and CRP greater than 25. She was asked to be admitted for further management. CT revealed here is extensive left lower extremity skin thickening and edema which is somewhat confluent in the pretibial region.No fractures nor obvious bone lesions evident. However, please note the abnormal osseous findings on recent MRI scan of 01/19/2020.She did have an MRI on 01/13 without evidence osteomyelitis. During course of hospitalization wound Culture grew strep A; she completed a 7 day regimen of clindamycin and cefepime IV. She was transitioned to augmentin and clindamycin PO on day 8 and doing well. CRP trended down from 25 to 4 and procal from 4.0 to 0.1. Her wound is improving with erythema receding from thigh to below the knee. She is having desquamation of the skin blisters and wound nurse now recommends compression wraps that have helped with pain. She is being discharged home to the [facility], will trend weekly CRP and CBC with procal. Continue wound orders: *Sacrum- apply mepilex sacral for protection, change every 7 days or prn. *Left lower leg- 03/14-Cleanse LLE with Anasept spray. Pat dry. Apply foam w/Ag WITHOUT border to open area. Apply 2 layer compression to LLE. Change Q3 days and PRN. Will prescribe 2 weeks additional augmentin/clindamycin, however she may require an additional 1-2 weeks following her 2 week course depending on labs and improvement of wound; I will defer the additional 1-2 weeks of antibiotics to her PCP as this will be followed as an outpatient and her wound will be monitored at the [facility]. Also she has a fungual rash to periarea and under breasts, continue compound of zinc, clotrimazole and a/d to helga area with nystatin under breasts. She denies CP, worsening SOB, n/v/d. She is in good spirits and ready to be home. Total time discharging with patient evaluation and plan approx 60 mins Home Meds and New Rx's Prescriptions: New nystatin 100,000 unit/gram Powder 1 applic topical TID Qty: 30 RF: 0 amoxicillin-pot clavulanate 875-125 mg Tablet 1 tab PO BID Qty: 25 RF: 0 clindamycin HCl 150 mg Capsule 450 mg PO TID Qty: 25 RF: 0 Bio-K plus 50 billion cell Capsule,Delayed Release(Dr/Ec) 1 cap PO DAILY Qty: 60 RF: 0 lorazepam 0.5 mg Tablet 0.5 mg PO TID PRN PRNQty: 10 RF: 0 Continued aspirin 81 mg Tablet,Delayed Release (Dr/Ec) 81 mg PO QAM RF: 0 citalopram 40 mg tablet 40 mg PO QAM RF: 0 diltiazem HCl [DILT-XR] 240 mg capsule,ext.rel 24h degradable 240 mg PO QAM RF: 0 folic acid 1 mg Tablet 1 mg PO QAM RF: 0 omeprazole 40 mg capsule,delayed release(DR/EC) 40 mg PO QAM RF: 0 Spiriva Respimat 2.5 mcg/actuation mist 1 inh INHALATION DAILY RF: 0 tolterodine 4 mg capsule,extended release 24hr 4 mg PO QAM RF: 0 cyanocobalamin (vitamin B-12) [Vitamin B-12] 100 mcg Tablet 1,000 mcg PO QAM RF: 0 amiodarone 200 mg tablet 200 mg PO BID RF: 0 budesonide-formoterol [Symbicort] 160-4.5 mcg/actuation HFA aerosol inhaler 2 inh INHALATION BID RF: 0 Eliquis 5 mg tablet 5 mg PO BID RF: 0 metoprolol tartrate 25 mg tablet 25 mg PO BID RF: 0 levothyroxine 75 mcg Tablet 37.5 mcg PO QAM RF: 0 furosemide [Lasix] 20 mg Tablet 20 mg PO DAILY RF: 0 albuterol sulfate 90 mcg/actuation HFA aerosol inhaler 2 inh INHALATION Q4H PRNRF: 0 tramadol 50 mg Tablet 50 mg PO QID PRNRF: 0 acetaminophen [Tylenol] 325 mg Tablet 650 mg PO Q4H PRNRF: 0 sodium chloride [Saline Nasal Mist] 0.65 % Aerosol,Ferriday 2 spray INTRANASAL Q2H PRNRF: 0 epinephrine 0.3 mg/0.3 mL Auto-Injector 0.3 mg IM PRN PRNRF: 0 metformin [Glucophage] 1,000 mg Tablet 1,000 mg PO BID RF: 0 celecoxib 200 mg capsule 200 mg PO BID RF: 0 ascorbic acid (vitamin C) [Vitamin C] 500 mg Tablet 500 mg PO BID RF: 0 ferrous sulfate 325 mg (65 mg iron) Tablet 325 mg PO BID RF: 0 T Gel Shampoo 1 applic topical .SUNDAY RF: 0 Discontinued sulfamethoxazole-trimethoprim [Bactrim DS] 800-160 mg Tablet 1 tab PO BID RF: 0 Discharge Instructions Instructions: Antifungals (On the skin), Cellulitis (DC), Antibiotic Resistant Bacteria (GEN) Additional Instructions: See note Wound care instructions and antibiotic plan with weekly lab trends Stand Alone Forms: Nursing Discharge Form Referrals: Evi Cloud [Primary Care Provider] - Activity:: Activity as Tolerated Equipment/Supplies:: No Equipment Needed Diet:: Carb Counting Discharge Orders Discharge Orders: Discharge Order (Routine); Ordered 03/15/20 Ordered By: Pushpa Levy Other Ambulatory Orders: Complete Blood Count w/Diff (Routine) Location: None Selected Ordered By: Pushpa Levy Procalcitonin (DAILY AM) Location: None Selected Ordered By: Pushpa Levy C-Reactive Protein (Routine) Location: None Selected Ordered By: Pushpa Levy DS: Summary Status at Discharge Functional status at discharge: independent ambulation Overall status at discharge: patient is progressing back to baseline Mental Status: mental status grossly normal Speech and Movement: speech and movement normal Mood: congruent mood Affect: normal affect Exam Narrative Exam Narrative: improvement in her cellulitis. The area of erythema has receded considerably below the knee down below the patella and leading down to the dorsum of her foot to her toes. The area of intense erythema has receded to about half the size it had been. She is having desquamation of the skin blisters. Compression started today LSC/ diminished on oxygen at baseline RRR, no JVD, GI obese with BS x 4 quads AAOx3. Feeling well. Looking well Psych Mental Status: mental status grossly normal Speech and Movement: speech and movement normal Mood: congruent mood Affect: normal affect DS: Data Vitals/I&O Vitals and I&O: Vital Signs Temperature 36.8 C 03/15/20 07:54 Temperature Source Tympanic 03/15/20 07:54 Pulse 65 03/15/20 07:54 Pulse Rhythm Regular 03/15/20 02:49 Respiratory Rate 20 03/15/20 07:54 Respiratory Effort Non-Labored 03/15/20 02:49 Respiratory Depth Normal 03/15/20 02:49 Respiratory Pattern Normal 03/15/20 02:49 Blood Pressure 118/67 03/15/20 07:54 Blood Pressure Position Supine 03/07/20 08:17 Pulse Oximetry 94 03/15/20 07:54 Oxygen Delivery Method Nasal Cannula 03/15/20 07:54 Oxygen Flow Rate 3 03/15/20 07:54 Fraction of Inspired Oxygen (FIO2) 3 03/10/20 07:37 Pain Level 5 03/15/20 07:54 Comment 03/11/20 23:48 Intake & Output 03/14/20 03/14/20 03/15/20 11:59 23:59 11:59 Intake Total 410 / 910 500 / 910 Output Total 900 / 1900 1000 / 1900 1750 / 1750 Balance -490 / -990 -500 / -990 -1750 / -1750 Weight 132.7 kg 127.4 kg Intake: IV Oral 390 / 890 500 / 890 Output: Urine 900 / 1900 1000 / 1900 1750 / 1750 Other: Urine Color Pale Straw Pale Yellow Yellow Urine Appearance Clear Cloudy Clear Comment Sediment was found in catheter bag. Stool Size Moderate Stool Characteristics Soft Data Completed and Pending Completed studies during hospitalization [Text1]: FINDINGS: Cutaneous/soft tissues: There is thickening of the skin over the anterior and medial aspect of the left thigh. This extends inferiorly beyond the knee into the anterior calf to the lower field of view of this study which is region of the ankle and this extends into the for foot. Subcutaneous edema is noted and this becomes more confluent on the anterior-lateral aspect of left knee and extending down anterior to the patellar ligament. Also noted to be somewhat confluent fluid intensity in the deep anterior calf just anterior to the tibialis anterior muscle. There appears to be a small left knee joint effusion in the lateral aspect of the suprapatellar bursa. There is no heard cyst in the popliteal fossa. There are a few slightly prominent lymph nodes in the ipsilateral groin. Osseous: There is no obvious hip fracture.. No other fractures identified, including the visualized ipsilateral foot and ankle. Degenerative changes in the knee noted almost evident in the medial compartment. There are no lytic osseous lesions identified on CT scan. IMPRESSION: There is extensive left lower extremity skin thickening and edema which is somewhat confluent in the pretibial region. No fractures nor obvious bone lesions evident. However, please note the abnormal osseous findings on recent MRI scan of 01/19/2020. RADIATION DOSE DELIVERED: 1,020.48mGy.cm Total DLP DATA REPOSITORY: All CT scans at this facility are submitted to the National Radiology Data Registry (NRDR) Dose Index Registry (DIR) with the [employer] (A[employer]). TECHNIQUE: 2D digital imaging was performed. COMPARISON: CT CT CHEST/ABD/PEL W from 01/14/2020 CR,XR XR LINE PLACEMENT PICC/CVA from 01/18/2020 CR XR PORTABLE CHEST AP from 01/19/2020 CR XR PORTABLE CHEST AP from 01/19/2020 FINDINGS: The exam is limited by patient body habitus and rotation. The heart is again noted to be enlarged, not grossly changed. The lungs appear clear where visualized. The left lower lung field is obscured by the cardiac silhouette. There is a prominent epicardial fat pad. IMPRESSION: No acute pulmonary findings. COMPARISON: CR XR PORTABLE CHEST AP 01/19/2020 12:36 PM FINDINGS: Lungs: Redemonstrated left lower lung opacities. Pleural space: Possibly small left pleural effusion. Heart/Mediastinum: Cardiomegaly. Bones/joints: Unremarkable. IMPRESSION: Redemonstrated left lower lung opacities and possibly small left pleural effusion along with cardiomegaly. Findings may represent pneumonia, atelectasis and/or pulmonary edema. Dictated and Authenticated by: Omid Chirinos MD. Labs on day of discharge: Labs from last 24 hours 03/14/20 03/14/20 03/14/20 08:15 08:15 08:15 Immature Gran % Neutrophils % 63.0 Band Neutrophils % 4 Lymphocytes % 12.0 Monocytes % 7.0 Eosinophils % 7.0 Basophils % 0.0 Metamyelocytes % 2 Myelocytes % 5 Absolute Neutrophils 9.47 H Absolute Lymphocytes 1.70 Absolute Monocytes 0.99 H Absolute Eosinophils 0.99 H Absolute Basophils 0.00 RBC Morphology See below Polychromasia Present Hypochromasia 1+ Anisocytosis 1+ Sodium 136 Potassium 4.5 Chloride 99 Carbon Dioxide 37.0 H Anion Gap 0 L BUN 11 Creatinine 0.64 Estimated GFR/1.73 m2 >= 60.00 Glucose 136 H Calcium 9.3 C-Reactive Protein 4.63 H Procalcitonin 0.1 PFSH Medical History Acute on chronic respiratory failure with hypoxia and hypercapnia Altered mental status Arthritis Atrial fibrillation Cellulitis bilateral lower extremities Cellulitis CHF (congestive heart failure) Chronic respiratory failure with hypoxia COPD (chronic obstructive pulmonary disease) Diabetes mellitus Family history unobtainable due to patient's condition GERD (gastroesophageal reflux disease) Hypercholesterolemia Mood disorder Muscle weakness (generalized) Obesity Plaque psoriasis Pneumonia Streptococcal bacteremia Toxic metabolic encephalopathy Type 2 diabetes mellitus Surgical History H/O hand surgery right index finger removal of tendon sheath ganglion H/O: hysterectomy History of carpal tunnel surgery of right wrist History of excision of lesion abdominal cyst removed S/P appendectomy Family History Father Heart disease 2 ND, at 62 Mother Heart disease Social History Smoking/Tobacco Use Status: Former Tobacco Use Smoking risk assessment performed?: Yes Alcohol Intake: never Drug use: Never
[2020-03-15] MEDS: Bacitracin 1 PACKET (09:03)
--- NOTE | 2020-03-15 14:26 | PDOC.CMDIS ---
- If Service Date Differs Date of service: 03/15/20 Time of Service: 14:26 LACE Index Scoring Tool - Questions: Length of Stay (in days): 7 - 13 Acuity (Admit via E.D.?): Yes Comorbidities: Diabetes w/o Complication, Congestive Heart Failure E.D. Visits: 2 - Answers: Total Score: 13 Risk of Readmission: High Risk Care Management Discharge Reason for Hospitalization: Cellulitis Discharge Plan: Marlen will return to the [facility], where she resides. She will continue her oral abx course, as well as the dressing changes that were initiated at [facility]. She will transport via [employer] w/c [employer], coordinated by CM. She will follow up with her PCP and discharge plan of care. She is happy to be going back home. Patient/Family Education Needs: Review discharge instructions regarding activity levels and medications, discussion of self care needs and goals of care. Services Needed at Discharge: Long Term Facility (The [facility]), Transportation ([employer] w[facility] [employer])
== END 2020-03-15 10:52 | disposition intermediate care facility (04) | DRG 603 ==
LOC: ER 09:55 → MS 09:57
PROVIDERS: Nurse Practitioner Family; Admitting Provider Internal Medicine; Emergency Provider Physician Assistant; PCP Family Medicine; Visit Provider Internal Medicine
DX: L03.116 Cellulitis of left lower limb (principal); N17.9 Acute kidney failure, unspecified; I48.20 Chronic atrial fibrillation, unspecified; Z68.42 Body mass index [BMI] 45.0-49.9, adult; J96.11 Chronic respiratory failure with hypoxia; J96.12 Chronic respiratory failure with hypercapnia; I50.813 Acute on chronic right heart failure; K21.9 Gastro-esophageal reflux disease without esophagitis; E11.9 Type 2 diabetes mellitus without complications; E66.01 Morbid (severe) obesity due to excess calories; J44.9 Chronic obstructive pulmonary disease, unspecified; I11.0 Hypertensive heart disease with heart failure; F39 Unspecified mood [affective] disorder; L40.0 Psoriasis vulgaris; Z99.81 Dependence on supplemental oxygen; Z79.01 Long term (current) use of anticoagulants; Z79.84 Long term (current) use of oral hypoglycemic drugs; B95.0 Streptococcus, group A, as the cause of diseases classified elsewhere; B95.62 Methicillin resistant Staphylococcus aureus infection as the cause of diseases classified elsewhere; B37.2 Candidiasis of skin and nail
CPT/HCPCS: 36415; 36573; 51702; 71045; 80048; 84145; 87040; 87077; 87081; 94640; 96374; 99223; 99232; 99233; 99239; 99255; 99285; U0003; 73701; 81003; 83605; 83735; 85025; 86140; 87070; 87186; 87205; J3490

== ENCOUNTER 2020-03-17 18:14 | Outpatient (REF) | payer MEDICARE, MEDICAID, SELFPAY ==
[2020-03-19 08:19] LABS: COVID-19 RT-PCR Result Not Detected ((See Note))
== END 2020-03-17 18:34 ==
LOC: LBN 18:14
PROVIDERS: PCP Family Medicine; Visit Provider Family Medicine
DX: Z11.59 Encounter for screening for other viral diseases (principal)
CPT/HCPCS: U0003

== ENCOUNTER 2020-03-23 10:55 | Outpatient (REF) | payer SELFPAY ==
[2020-03-24 15:33] LABS: Anion Gap 5.4 mmol/L (3-11); BUN 10 mg/dL (7-18); C-Reactive Protein 0.73 mg/dL (0.0-0.3); CO2 33.6 mmol/L (21.0-32.0); CREATININE 0.69 mg/dL (0.55-1.02); Calcium 9.2 mg/dL (8.5-10.1); Chloride 100 mmol/L (98-107); Glucose 107 mg/dL (74-106); Potassium 4.4 mmol/L (3.5-5.1); Sodium 139 mmol/L (136-145)
== END 2020-03-23 11:15 ==
LOC: NCHCN 10:55
PROVIDERS: PCP Family Medicine; Visit Provider Family Medicine
DX: L03.116 Cellulitis of left lower limb (principal); B95.62 Methicillin resistant Staphylococcus aureus infection as the cause of diseases classified elsewhere; J96.22 Acute and chronic respiratory failure with hypercapnia
CPT/HCPCS: 80048; 85025; 86140

== ENCOUNTER 2020-03-24 14:42 | Outpatient (REF) | payer MEDICARE, MEDICAID, SELFPAY ==
[2020-03-25 16:47] LABS: COVID-19 RT-PCR Result Not Detected ((See Note))
== END 2020-03-24 15:02 ==
LOC: LBN 14:42
PROVIDERS: PCP Family Medicine; Visit Provider Family Medicine
DX: Z11.52 Encounter for screening for COVID-19 (principal)
CPT/HCPCS: U0003

== ENCOUNTER 2020-03-30 12:22 | Outpatient (REF) | payer SELFPAY ==
[2020-03-30 12:43] LABS: Abs Immature Grans 0.04 10^3/uL (0.0-0.06); Absolute Basophil Count 0.08 10^3/uL (0.0-0.2); Absolute Eosinophil Count 0.96 10^3/uL (0.0-0.7); Absolute Lymphocyte Count 2.43 10^3/uL (1.2-3.4); Absolute Monocyte Count 0.74 10^3/uL (0.1-0.8); Absolute Neutrophil Count 4.04 10^3/uL (1.2-6.7); Eosinophils % 11.6; HCT 33.4 % (36.0-46.0); HGB 9.8 g/dL (11.2-15.7); Immature Grans % 0.5; Lymphocytes % 29.3; MCH 27.2 pg (27.0-33.0); MCHC 29.3 % (32.0-36.0); MCV 92.8 fL (80-95); MPV 9.8 fL (8.0-11.0); Monocytes % 8.9; Neutrophils % 48.7; Nucleated RBC 0 %; Platelet Count 308 10^3/uL (130-400); RDW 20.6 % (11.7-14.6); WBC 8.29 10^3/uL (4.4-10.8)
[2020-03-30 12:52] LABS: Anion Gap 1.4 mmol/L (3-11); BUN 14 mg/dL (7-18); C-Reactive Protein 1.02 mg/dL (0.0-0.3); CO2 35.6 mmol/L (21.0-32.0); CREATININE 0.68 mg/dL (0.55-1.02); Calcium 9.2 mg/dL (8.5-10.1); Chloride 101 mmol/L (98-107); Glucose 109 mg/dL (74-106); Potassium 4.2 mmol/L (3.5-5.1); Sodium 138 mmol/L (136-145)
== END 2020-03-30 12:42 ==
LOC: LBN 12:22
PROVIDERS: PCP Family Medicine; Visit Provider Family Medicine
DX: L03.116 Cellulitis of left lower limb (principal); B95.62 Methicillin resistant Staphylococcus aureus infection as the cause of diseases classified elsewhere; I50.813 Acute on chronic right heart failure; I87.302 Chronic venous hypertension (idiopathic) without complications of left lower extremity
CPT/HCPCS: 80048; 85025; 86140

== ENCOUNTER 2020-04-07 20:02 | Outpatient (REF) | payer SELFPAY ==
[2020-04-07 15:40] LABS: Abs Immature Grans 0.12 10^3/uL (0.0-0.06); Absolute Eosinophil Count 0.73 10^3/uL (0.0-0.7); Absolute Lymphocyte Count 2.87 10^3/uL (1.2-3.4); Absolute Monocyte Count 0.85 10^3/uL (0.1-0.8); Absolute Neutrophil Count 7.16 10^3/uL (1.2-6.7); Basophils % 0.8; Eosinophils % 6.2; HCT 34.5 % (36.0-46.0); HGB 10.3 g/dL (11.2-15.7); Lymphocytes % 24.3; MCH 28.4 pg (27.0-33.0); MCHC 29.9 % (32.0-36.0); MPV 9.9 fL (8.0-11.0); Monocytes % 7.2; Neutrophils % 60.5; Nucleated RBC 0 %; Platelet Count 317 10^3/uL (130-400); RBC 3.63 10^6/uL (3.93-5.22); RDW 19.4 % (11.7-14.6); RDW-SD 68.1 fL; WBC 11.83 10^3/uL (4.4-10.8)
[2020-04-07 15:41] LABS: Absolute Basophil Count 0.09 10^3/uL (0.0-0.2)
[2020-04-07 16:01] LABS: BUN 15 mg/dL (7-18); C-Reactive Protein 0.94 mg/dL (0.0-0.3); CREATININE 0.85 mg/dL (0.55-1.02); Chloride 98 mmol/L (98-107); Glucose 184 mg/dL (74-106); Potassium 4.4 mmol/L (3.5-5.1); Sodium 138 mmol/L (136-145)
== END 2020-04-07 20:22 ==
LOC: NCHCN 20:02
PROVIDERS: PCP Family Medicine; Visit Provider Family Medicine
DX: L03.116 Cellulitis of left lower limb (principal); J96.22 Acute and chronic respiratory failure with hypercapnia; B95.62 Methicillin resistant Staphylococcus aureus infection as the cause of diseases classified elsewhere; I50.813 Acute on chronic right heart failure
CPT/HCPCS: 80048; 85025; 86140

== ENCOUNTER 2020-04-14 20:43 | Outpatient (REF) | payer MEDICARE, MEDICAID, SELFPAY ==
[2020-04-14 17:55] LABS: Abs Immature Grans 0.13 10^3/uL (0.0-0.06); Absolute Basophil Count 0.06 10^3/uL (0.0-0.2); Absolute Eosinophil Count 0.76 10^3/uL (0.0-0.7); Absolute Lymphocyte Count 2.63 10^3/uL (1.2-3.4); Absolute Monocyte Count 0.82 10^3/uL (0.1-0.8); Absolute Neutrophil Count 6.66 10^3/uL (1.2-6.7); Basophils % 0.5; Eosinophils % 6.9; HCT 31.4 % (36.0-46.0); HGB 9.5 g/dL (11.2-15.7); Immature Grans % 1.2; Lymphocytes % 23.8; MCH 28.5 pg (27.0-33.0); MCHC 30.3 % (32.0-36.0); MCV 94.3 fL (80-95); Monocytes % 7.4; Neutrophils % 60.2; Nucleated RBC 0 %; Platelet Count 268 10^3/uL (130-400); RBC 3.33 10^6/uL (3.93-5.22); RDW 18.7 % (11.7-14.6); RDW-SD 64.9 fL; WBC 11.06 10^3/uL (4.4-10.8)
[2020-04-14 17:56] LABS: Anion Gap 4.9 mmol/L (3-11); BUN 16 mg/dL (7-18); C-Reactive Protein 0.68 mg/dL (0.0-0.3); CO2 33.1 mmol/L (21.0-32.0); CREATININE 0.8 mg/dL (0.55-1.02); Calcium 9.1 mg/dL (8.5-10.1); Chloride 100 mmol/L (98-107); Glucose 159 mg/dL (74-106); Potassium 4.3 mmol/L (3.5-5.1); Sodium 138 mmol/L (136-145)
== END 2020-04-14 20:44 | disposition home or self-care (01) ==
LOC: NCHCN 20:43
PROVIDERS: PCP Family Medicine; Visit Provider Family Medicine
DX: L03.116 Cellulitis of left lower limb (principal); B95.62 Methicillin resistant Staphylococcus aureus infection as the cause of diseases classified elsewhere; J96.22 Acute and chronic respiratory failure with hypercapnia
CPT/HCPCS: 80048; 85025; 86140

== ENCOUNTER 2020-04-15 11:03 | Outpatient (REF) | payer MEDICARE, MEDICAID, SELFPAY ==
[2020-04-15 11:15] LABS: Abs Immature Grans 0.11 10^3/uL (0.0-0.06); Absolute Basophil Count 0.08 10^3/uL (0.0-0.2); Absolute Eosinophil Count 0.78 10^3/uL (0.0-0.7); Absolute Lymphocyte Count 2.72 10^3/uL (1.2-3.4); Absolute Monocyte Count 0.61 10^3/uL (0.1-0.8); Absolute Neutrophil Count 5.93 10^3/uL (1.2-6.7); Basophils % 0.8; Eosinophils % 7.6; HCT 33.2 % (36.0-46.0); HGB 9.9 g/dL (11.2-15.7); Immature Grans % 1.1; Lymphocytes % 26.6; MCH 28.5 pg (27.0-33.0); MCHC 29.8 % (32.0-36.0); MCV 95.7 fL (80-95); MPV 9.7 fL (8.0-11.0); Neutrophils % 57.9; Nucleated RBC 0 %; Platelet Count 268 10^3/uL (130-400); RBC 3.47 10^6/uL (3.93-5.22); RDW 18.4 % (11.7-14.6); WBC 10.23 10^3/uL (4.4-10.8)
== END 2020-04-15 11:04 | disposition home or self-care (01) ==
LOC: LBN 11:03
PROVIDERS: PCP Family Medicine; Visit Provider Family Medicine
DX: L03.116 Cellulitis of left lower limb (principal); B95.62 Methicillin resistant Staphylococcus aureus infection as the cause of diseases classified elsewhere; J96.22 Acute and chronic respiratory failure with hypercapnia; J44.9 Chronic obstructive pulmonary disease, unspecified
CPT/HCPCS: 85025

== ENCOUNTER 2020-04-21 21:54 | Outpatient (REF) | payer MEDICARE, MEDICAID, SELFPAY ==
[2020-04-21 15:08] LABS: Abs Immature Grans 0.09 10^3/uL (0.0-0.06); Absolute Basophil Count 0.05 10^3/uL (0.0-0.2); Absolute Eosinophil Count 0.68 10^3/uL (0.0-0.7); Absolute Lymphocyte Count 2.32 10^3/uL (1.2-3.4); Absolute Monocyte Count 0.73 10^3/uL (0.1-0.8); Absolute Neutrophil Count 4.83 10^3/uL (1.2-6.7); Basophils % 0.6; Eosinophils % 7.8; HCT 33.1 % (36.0-46.0); HGB 9.8 g/dL (11.2-15.7); Lymphocytes % 26.7; MCH 28.3 pg (27.0-33.0); MCHC 29.6 % (32.0-36.0); MCV 95.7 fL (80-95); MPV 9.7 fL (8.0-11.0); Monocytes % 8.4; Neutrophils % 55.5; Nucleated RBC 0 %; Platelet Count 292 10^3/uL (130-400); RBC 3.46 10^6/uL (3.93-5.22); RDW 17.5 % (11.7-14.6); RDW-SD 61.1 fL
[2020-04-21 15:18] LABS: Anion Gap 6.2 mmol/L (3-11); BUN 14 mg/dL (7-18); C-Reactive Protein 0.81 mg/dL (0.0-0.3); CO2 33.8 mmol/L (21.0-32.0); CREATININE 0.6 mg/dL (0.55-1.02); Calcium 8.8 mg/dL (8.5-10.1); Chloride 100 mmol/L (98-107); Glucose 124 mg/dL (74-106); Potassium 4.5 mmol/L (3.5-5.1); Sodium 140 mmol/L (136-145); TSH (W/Ref FT4) 5.51 uIU/mL (0.36-3.74)
[2020-04-21 15:28] LABS: Hemoglobin A1C 5.6 % (<5.7)
[2020-04-21 15:34] LABS: FREE T4 0.68 ng/dL (0.76-1.46)
== END 2020-04-21 21:55 | disposition home or self-care (01) ==
LOC: LBN 21:54
PROVIDERS: PCP Family Medicine; Visit Provider Family Medicine
DX: L03.116 Cellulitis of left lower limb (principal); B95.62 Methicillin resistant Staphylococcus aureus infection as the cause of diseases classified elsewhere; E11.9 Type 2 diabetes mellitus without complications; I10 Essential (primary) hypertension; I50.813 Acute on chronic right heart failure; I48.91 Unspecified atrial fibrillation; I87.302 Chronic venous hypertension (idiopathic) without complications of left lower extremity; Z51.81 Encounter for therapeutic drug level monitoring
CPT/HCPCS: 80048; 80151; 83036; 84439; 84443; 85025; 86140

== ENCOUNTER 2020-04-27 15:21 | Outpatient (REF) | payer MEDICARE, MEDICAID, SELFPAY ==
[2020-04-27 15:56] LABS: Abs Immature Grans 0.14 10^3/uL (0.0-0.06); Absolute Basophil Count 0.05 10^3/uL (0.0-0.2); Absolute Eosinophil Count 0.71 10^3/uL (0.0-0.7); Absolute Lymphocyte Count 2.79 10^3/uL (1.2-3.4); Basophils % 0.5; Eosinophils % 6.7; HGB 9.9 g/dL (11.2-15.7); Immature Grans % 1.3; Lymphocytes % 26.3; MCV 96.8 fL (80-95); MPV 9.8 fL (8.0-11.0); Monocytes % 7.6; Neutrophils % 57.6; Nucleated RBC 0 %; Platelet Count 304 10^3/uL (130-400); RBC 3.41 10^6/uL (3.93-5.22); RDW 17.1 % (11.7-14.6); RDW-SD 59.7 fL
[2020-04-27 15:58] LABS: WBC 10.59 10^3/uL (4.4-10.8)
[2020-04-27 16:41] LABS: BUN 13 mg/dL (7-18); C-Reactive Protein 0.94 mg/dL (0.0-0.3); CREATININE 0.7 mg/dL (0.55-1.02); Chloride 99 mmol/L (98-107); Glucose 135 mg/dL (74-106); Potassium 4.2 mmol/L (3.5-5.1); Sodium 140 mmol/L (136-145)
== END 2020-04-27 15:22 | disposition home or self-care (01) ==
LOC: LBN 15:21
PROVIDERS: PCP Family Medicine; Visit Provider Family Medicine
DX: L03.116 Cellulitis of left lower limb (principal); I50.813 Acute on chronic right heart failure; I87.302 Chronic venous hypertension (idiopathic) without complications of left lower extremity; J96.22 Acute and chronic respiratory failure with hypercapnia
CPT/HCPCS: 80048; 85025; 86140

== ENCOUNTER 2020-04-29 14:22 | Outpatient (REF) | payer MEDICARE, MEDICAID, SELFPAY ==
[2020-04-29 15:32] LABS: Absolute Basophil Count 0.06 10^3/uL (0.0-0.2); Absolute Eosinophil Count 0.59 10^3/uL (0.0-0.7); Absolute Lymphocyte Count 2.46 10^3/uL (1.2-3.4); Absolute Monocyte Count 0.74 10^3/uL (0.1-0.8); Absolute Neutrophil Count 4.17 10^3/uL (1.2-6.7); Basophils % 0.7; Eosinophils % 7.3; HCT 31.9 % (36.0-46.0); HGB 9.5 g/dL (11.2-15.7); Immature Grans % 1.2; Lymphocytes % 30.3; MCH 29.1 pg (27.0-33.0); MCHC 29.8 % (32.0-36.0); MCV 97.9 fL (80-95); MPV 9.7 fL (8.0-11.0); Monocytes % 9.1; Neutrophils % 51.4; Nucleated RBC 0 %; Platelet Count 279 10^3/uL (130-400); RBC 3.26 10^6/uL (3.93-5.22); RDW 17.1 % (11.7-14.6); RDW-SD 60.8 fL; WBC 8.12 10^3/uL (4.4-10.8)
[2020-04-29 15:51] LABS: Anion Gap 4.3 mmol/L (3-11); BUN 11 mg/dL (7-18); C-Reactive Protein 1.81 mg/dL (0.0-0.3); CO2 33.7 mmol/L (21.0-32.0); CREATININE 0.7 mg/dL (0.55-1.02); Calcium 9.3 mg/dL (8.5-10.1); Chloride 101 mmol/L (98-107); Glucose 164 mg/dL (74-106); Potassium 4.3 mmol/L (3.5-5.1); Sodium 139 mmol/L (136-145)
== END 2020-04-29 14:23 | disposition home or self-care (01) ==
LOC: LBN 14:22
PROVIDERS: PCP Family Medicine; Visit Provider Family Medicine
DX: L03.116 Cellulitis of left lower limb (principal); B95.62 Methicillin resistant Staphylococcus aureus infection as the cause of diseases classified elsewhere; I50.813 Acute on chronic right heart failure; E66.01 Morbid (severe) obesity due to excess calories
CPT/HCPCS: 80048; 85025; 86140

== ENCOUNTER 2020-05-13 17:07 | Outpatient (REF) | payer MEDICARE, MEDICAID, SELFPAY ==
[2020-05-13 17:23] LABS: Abs Immature Grans 0.07 10^3/uL (0.0-0.06); Absolute Basophil Count 0.06 10^3/uL (0.0-0.2); Absolute Eosinophil Count 0.53 10^3/uL (0.0-0.7); Absolute Lymphocyte Count 2.57 10^3/uL (1.2-3.4); Absolute Monocyte Count 0.75 10^3/uL (0.1-0.8); Absolute Neutrophil Count 5.56 10^3/uL (1.2-6.7); Basophils % 0.6; Eosinophils % 5.6; HCT 35.4 % (36.0-46.0); HGB 10.7 g/dL (11.2-15.7); Immature Grans % 0.7; Lymphocytes % 26.9; MCH 30.1 pg (27.0-33.0); MCHC 30.2 % (32.0-36.0); MCV 99.7 fL (80-95); MPV 9.9 fL (8.0-11.0); Monocytes % 7.9; Neutrophils % 58.3; Nucleated RBC 0 %; Platelet Count 290 10^3/uL (130-400); RBC 3.55 10^6/uL (3.93-5.22); RDW 16.1 % (11.7-14.6); RDW-SD 58.7 fL; WBC 9.54 10^3/uL (4.4-10.8)
[2020-05-13 17:38] LABS: Hemoglobin A1C 5.6 % (<5.7)
[2020-05-13 17:59] LABS: Anion Gap 6.8 mmol/L (3-11); BUN 14 mg/dL (7-18); CO2 32.2 mmol/L (21.0-32.0); CREATININE 0.7 mg/dL (0.55-1.02); Chloride 101 mmol/L (98-107); Glucose 163 mg/dL (74-106); Potassium 4.7 mmol/L (3.5-5.1); Sodium 140 mmol/L (136-145); TSH (W/Ref FT4) 4.01 uIU/mL (0.36-3.74); Vitamin B12 1453 pg/mL (193-986)
[2020-05-13 18:26] LABS: C-Reactive Protein 1.08 mg/dL (0.0-0.3); FREE T4 0.73 ng/dL (0.76-1.46)
== END 2020-05-13 17:08 | disposition home or self-care (01) ==
LOC: LBN 17:07
PROVIDERS: PCP Family Medicine; Visit Provider Family Medicine
DX: I10 Essential (primary) hypertension (principal); E11.9 Type 2 diabetes mellitus without complications; E03.9 Hypothyroidism, unspecified; L03.116 Cellulitis of left lower limb; B95.62 Methicillin resistant Staphylococcus aureus infection as the cause of diseases classified elsewhere; I50.812 Chronic right heart failure; I48.91 Unspecified atrial fibrillation
CPT/HCPCS: 80048; 82607; 83036; 84439; 84443; 85025; 86140

== ENCOUNTER 2020-06-02 16:14 | Outpatient (REF) | payer MEDICARE, MEDICAID, SELFPAY ==
[2020-06-02 15:54] LABS: Abs Immature Grans 0.17 10^3/uL (0.0-0.06); Absolute Basophil Count 0.08 10^3/uL (0.0-0.2); Absolute Eosinophil Count 0.61 10^3/uL (0.0-0.7); Absolute Lymphocyte Count 2.39 10^3/uL (1.2-3.4); Absolute Monocyte Count 0.73 10^3/uL (0.1-0.8); Absolute Neutrophil Count 6.25 10^3/uL (1.2-6.7); Basophils % 0.8; HCT 36.7 % (36.0-46.0); HGB 11.3 g/dL (11.2-15.7); Immature Grans % 1.7; Lymphocytes % 23.4; MCH 30.6 pg (27.0-33.0); MCHC 30.8 % (32.0-36.0); MCV 99.5 fL (80-95); MPV 9.6 fL (8.0-11.0); Monocytes % 7.1; Nucleated RBC 0 %; Platelet Count 294 10^3/uL (130-400); RBC 3.69 10^6/uL (3.93-5.22); RDW 14.4 % (11.7-14.6); RDW-SD 51.8 fL; WBC 10.23 10^3/uL (4.4-10.8)
[2020-06-02 16:04] LABS: Anion Gap 4.5 mmol/L (3-11); BUN 18 mg/dL (7-18); C-Reactive Protein 0.66 mg/dL (0.0-0.3); CO2 34.5 mmol/L (21.0-32.0); CREATININE 0.6 mg/dL (0.55-1.02); Chloride 99 mmol/L (98-107); Glucose 177 mg/dL (74-106); Potassium 4.3 mmol/L (3.5-5.1); Sodium 138 mmol/L (136-145)
== END 2020-06-02 16:15 | disposition home or self-care (01) ==
LOC: LBN 16:14
PROVIDERS: PCP Family Medicine; Visit Provider Family Medicine
DX: I50.813 Acute on chronic right heart failure (principal); E03.9 Hypothyroidism, unspecified; E66.8 Other obesity; E11.9 Type 2 diabetes mellitus without complications; L03.116 Cellulitis of left lower limb
CPT/HCPCS: 80048; 85025; 86140

== ENCOUNTER 2020-06-04 09:49 | Outpatient (CLI) | payer MEDICARE, MEDICAID, SELFPAY ==
--- NOTE | 2020-06-04 09:45 | RT.EKG_ITS ---
APPROVED REPORT Exam: Resting ECG Patient Location: O HR:61 bpm ECG Measurements Heart Rate 61 AXIS RI 213 P 40 QRSd 111 QRS -67 QT 459 T 42 QTc 463 Conclusion Sinus rhythm...normal P axis, V-rate 50- 99 Borderline prolonged RI interval...RI >212, V-rate 50- 90 Incomplete RBBB and LAFB...axis(240,-40), S>R II III aVF Probable lateral infarct, old...Q>35mS, abnormal ST-T, V5-6 I aVL Anteroseptal infarct, old...Q >40mS, V1-V2
== END 2020-06-04 09:50 | disposition home or self-care (01) ==
LOC: DI.CARD 09:51
PROVIDERS: PCP Family Medicine; Referring Provider Family Medicine; Visit Provider Internal Medicine Cardiovascular Disease
DX: I48.91 Unspecified atrial fibrillation (principal)
CPT/HCPCS: 93010

== ENCOUNTER → 2020-06-04 09:49 | Outpatient (BNVA) | payer MEDICARE, MEDICAID, SELFPAY | PROVIDERS: PCP Family Medicine; Referring Provider Family Medicine; Visit Provider Internal Medicine Cardiovascular Disease | DX: I48.91 Unspecified atrial fibrillation (principal); J44.9 Chronic obstructive pulmonary disease, unspecified; Z99.81 Dependence on supplemental oxygen; I50.813 Acute on chronic right heart failure | CPT/HCPCS: 99204; 99215 ==

== ENCOUNTER 2020-06-08 10:33 | Outpatient (REF) | payer MEDICARE, MEDICAID, SELFPAY ==
[2020-06-08 10:48] LABS: Abs Immature Grans 0.13 10^3/uL (0.0-0.06); Absolute Basophil Count 0.06 10^3/uL (0.0-0.2); Absolute Eosinophil Count 0.64 10^3/uL (0.0-0.7); Absolute Lymphocyte Count 2.39 10^3/uL (1.2-3.4); Absolute Neutrophil Count 6.75 10^3/uL (1.2-6.7); Basophils % 0.6; HCT 34.6 % (36.0-46.0); HGB 10.6 g/dL (11.2-15.7); Immature Grans % 1.2; Lymphocytes % 22.4; MCHC 30.6 % (32.0-36.0); MCV 101.2 fL (80-95); MPV 9.2 fL (8.0-11.0); Monocytes % 6.6; Neutrophils % 63.2; Nucleated RBC 0 %; Platelet Count 263 10^3/uL (130-400); RBC 3.42 10^6/uL (3.93-5.22); RDW 14.5 % (11.7-14.6); RDW-SD 52.7 fL; WBC 10.67 10^3/uL (4.4-10.8)
[2020-06-08 10:53] LABS: Anion Gap 2.9 mmol/L (3-11); BUN 17 mg/dL (7-18); C-Reactive Protein 1.06 mg/dL (0.0-0.3); CO2 35.1 mmol/L (21.0-32.0); CREATININE 0.8 mg/dL (0.55-1.02); Calcium 8.7 mg/dL (8.5-10.1); Chloride 100 mmol/L (98-107); Glucose 207 mg/dL (74-106); Potassium 4.3 mmol/L (3.5-5.1); Sodium 138 mmol/L (136-145)
== END 2020-06-08 10:34 | disposition home or self-care (01) ==
LOC: LBN 10:33
PROVIDERS: PCP Family Medicine; Visit Provider Family Medicine
DX: L03.116 Cellulitis of left lower limb (principal); E03.9 Hypothyroidism, unspecified; I50.813 Acute on chronic right heart failure; J96.22 Acute and chronic respiratory failure with hypercapnia
CPT/HCPCS: 80048; 85025; 86140

== ENCOUNTER 2020-06-14 13:43 | Outpatient (REF) | payer MEDICARE, MEDICAID, SELFPAY ==
[2020-06-14 14:40] LABS: Abs Immature Grans 0.13 10^3/uL (0.0-0.06); Absolute Basophil Count 0.07 10^3/uL (0.0-0.2); Absolute Eosinophil Count 0.58 10^3/uL (0.0-0.7); Absolute Lymphocyte Count 2.14 10^3/uL (1.2-3.4); Absolute Monocyte Count 0.75 10^3/uL (0.1-0.8); Absolute Neutrophil Count 5.95 10^3/uL (1.2-6.7); Basophils % 0.7; HCT 35.8 % (36.0-46.0); HGB 10.9 g/dL (11.2-15.7); Immature Grans % 1.4; Lymphocytes % 22.2; MCH 30.6 pg (27.0-33.0); MCHC 30.4 % (32.0-36.0); MCV 100.6 fL (80-95); MPV 9.5 fL (8.0-11.0); Monocytes % 7.8; Neutrophils % 61.9; Nucleated RBC 0 %; Platelet Count 296 10^3/uL (130-400); RBC 3.56 10^6/uL (3.93-5.22); RDW 14.6 % (11.7-14.6); RDW-SD 53.4 fL; WBC 9.62 10^3/uL (4.4-10.8)
[2020-06-14 14:46] LABS: Anion Gap 4.2 mmol/L (3-11); BUN 17 mg/dL (7-18); C-Reactive Protein 1.32 mg/dL (0.0-0.3); CO2 36.8 mmol/L (21.0-32.0); CREATININE 0.7 mg/dL (0.55-1.02); Calcium 8.9 mg/dL (8.5-10.1); Chloride 99 mmol/L (98-107); Glucose 177 mg/dL (74-106); Potassium 4.2 mmol/L (3.5-5.1); Sodium 140 mmol/L (136-145)
== END 2020-06-14 13:44 | disposition home or self-care (01) ==
LOC: LBN 13:43
PROVIDERS: PCP Family Medicine; Visit Provider Family Medicine
DX: L03.116 Cellulitis of left lower limb (principal); E03.9 Hypothyroidism, unspecified; I50.813 Acute on chronic right heart failure
CPT/HCPCS: 80048; 85025; 86140

== ENCOUNTER 2020-06-22 13:31 | Outpatient (REF) | payer MEDICARE, MEDICAID, SELFPAY ==
[2020-06-22 13:48] LABS: Abs Immature Grans 0.12 10^3/uL (0.0-0.06); Absolute Basophil Count 0.08 10^3/uL (0.0-0.2); Absolute Lymphocyte Count 1.86 10^3/uL (1.2-3.4); Absolute Monocyte Count 0.75 10^3/uL (0.1-0.8); Absolute Neutrophil Count 6.85 10^3/uL (1.2-6.7); Basophils % 0.8; Eosinophils % 5.8; HCT 36.9 % (36.0-46.0); HGB 11.1 g/dL (11.2-15.7); Immature Grans % 1.2; Lymphocytes % 18.1; MCH 30.9 pg (27.0-33.0); MCHC 30.1 % (32.0-36.0); MCV 102.8 fL (80-95); MPV 9.1 fL (8.0-11.0); Monocytes % 7.3; Neutrophils % 66.8; Nucleated RBC 0 %; Platelet Count 306 10^3/uL (130-400); RBC 3.59 10^6/uL (3.93-5.22); RDW 14.5 % (11.7-14.6); RDW-SD 54.4 fL; WBC 10.26 10^3/uL (4.4-10.8)
[2020-06-22 13:51] LABS: Anion Gap 1.6 mmol/L (3-11); BUN 17 mg/dL (7-18); C-Reactive Protein 1.53 mg/dL (0.0-0.3); CO2 38.4 mmol/L (21.0-32.0); CREATININE 0.8 mg/dL (0.55-1.02); Chloride 100 mmol/L (98-107); Glucose 168 mg/dL (74-106); Potassium 4.3 mmol/L (3.5-5.1); Sodium 140 mmol/L (136-145)
[2020-06-22 14:00] LABS: ESR 22 mm//hr (0-30)
== END 2020-06-22 13:32 | disposition home or self-care (01) ==
LOC: LBN 13:31
PROVIDERS: PCP Family Medicine; Visit Provider Family Medicine
DX: I50.22 Chronic systolic (congestive) heart failure (principal); R60.0 Localized edema; L03.116 Cellulitis of left lower limb; E66.01 Morbid (severe) obesity due to excess calories
CPT/HCPCS: 80048; 85652; 85025; 86140

== ENCOUNTER 2020-06-25 10:56 | Outpatient (REF) | payer MEDICARE, MEDICAID, SELFPAY ==
[2020-06-25 11:15] LABS: BUN 16 mg/dL (7-18); CREATININE 0.8 mg/dL (0.55-1.02); Calcium 8.6 mg/dL (8.5-10.1); Chloride 101 mmol/L (98-107); Glucose 262 mg/dL (74-106); Potassium 4.4 mmol/L (3.5-5.1); Sodium 139 mmol/L (136-145)
[2020-06-25 11:17] LABS: Abs Immature Grans 0.13 10^3/uL (0.0-0.06); Absolute Basophil Count 0.08 10^3/uL (0.0-0.2); Absolute Eosinophil Count 0.52 10^3/uL (0.0-0.7); Absolute Lymphocyte Count 1.85 10^3/uL (1.2-3.4); Absolute Neutrophil Count 5.38 10^3/uL (1.2-6.7); Basophils % 0.9; Eosinophils % 6.1; HCT 35.1 % (36.0-46.0); HGB 10.5 g/dL (11.2-15.7); Immature Grans % 1.5; Lymphocytes % 21.6; MCH 30.9 pg (27.0-33.0); MCHC 29.9 % (32.0-36.0); MCV 103.2 fL (80-95); MPV 9.4 fL (8.0-11.0); Neutrophils % 62.9; Nucleated RBC 0 %; RDW 14.6 % (11.7-14.6); RDW-SD 55.2 fL; WBC 8.56 10^3/uL (4.4-10.8)
[2020-06-25 11:41] LABS: Platelet Count 229 10^3/uL (130-400)
[2020-06-25 11:42] LABS: Diff Comment Diff Reviewed; Macrocytosis 1+
== END 2020-06-25 10:57 | disposition home or self-care (01) ==
LOC: LBN 10:56
PROVIDERS: PCP Family Medicine; Visit Provider Family Medicine
DX: L03.116 Cellulitis of left lower limb (principal); E03.9 Hypothyroidism, unspecified; R60.0 Localized edema; I50.22 Chronic systolic (congestive) heart failure; E66.01 Morbid (severe) obesity due to excess calories
CPT/HCPCS: 80048; 85025; 86140

== ENCOUNTER 2020-06-28 10:18 | Outpatient (REF) | payer MEDICARE, MEDICAID, SELFPAY ==
[2020-06-28 11:14] LABS: Absolute Basophil Count 0.08 10^3/uL (0.0-0.2); Absolute Eosinophil Count 0.68 10^3/uL (0.0-0.7); Absolute Lymphocyte Count 2.89 10^3/uL (1.2-3.4); Absolute Monocyte Count 0.63 10^3/uL (0.1-0.8); Anion Gap 0 mmol/L (3-11); BUN 15 mg/dL (7-18); Basophils % 0.7; C-Reactive Protein 1.35 mg/dL (0.0-0.3); CREATININE 0.7 mg/dL (0.55-1.02); Chloride 101 mmol/L (98-107); Eosinophils % 6.2; Glucose 230 mg/dL (74-106); HCT 36.9 % (36.0-46.0); HGB 11.1 g/dL (11.2-15.7); Immature Grans % 1.8; Lymphocytes % 26.3; MCH 31.4 pg (27.0-33.0); MCHC 30.1 % (32.0-36.0); MCV 104.5 fL (80-95); MPV 9.2 fL (8.0-11.0); Monocytes % 5.7; Neutrophils % 59.3; Nucleated RBC 0 %; Platelet Count 283 10^3/uL (130-400); Potassium 4.4 mmol/L (3.5-5.1); RBC 3.53 10^6/uL (3.93-5.22); RDW 14.7 % (11.7-14.6); RDW-SD 56.9 fL; Sodium 139 mmol/L (136-145); WBC 10.97 10^3/uL (4.4-10.8)
[2020-06-28 11:17] LABS: Absolute Neutrophil Count 6.51 10^3/uL (1.2-6.7)
== END 2020-06-28 10:19 | disposition home or self-care (01) ==
LOC: LBN 10:18
PROVIDERS: PCP Family Medicine; Visit Provider Family Medicine
DX: L03.116 Cellulitis of left lower limb (principal); E11.9 Type 2 diabetes mellitus without complications; I50.813 Acute on chronic right heart failure; B95.62 Methicillin resistant Staphylococcus aureus infection as the cause of diseases classified elsewhere
CPT/HCPCS: 80048; 85025; 86140

== ENCOUNTER 2020-06-29 09:59 | Emergency (ER) | payer MEDICARE, MEDICAID, SELFPAY ==
--- NOTE | 2020-06-29 09:45 | RT.EKG_ITS ---
APPROVED REPORT Exam: Resting ECG Patient Location: E HR:82 bpm ECG Measurements Heart Rate 82 AXIS TX 222 P 78 QRSd 115 QRS -65 QT 433 T 28 QTc 507 Conclusion Sinus rhythm...normal P axis, V-rate 60- 99 Prolonged TX interval...TX >220, V-rate 50- 90 Probable left atrial enlargement...P >50mS, <-0.10mV V1 Incomplete RBBB and LAFB...axis(240,-40), S>R II III aVF Low voltage, extremity and precordial leads...extremity<0.5mV, precordial<1.0mV Consider anterior infarct...Q >30mS in V2-V5 Prolonged QT interval...QTc >500mS I have reviewed and interpreted ECG and agree with software generated interpretation.
--- NOTE | 2020-06-29 09:51 | ED.GENADUL_ITS ---
Discharge Plan Disposition Patient Disposition: HOME Condition: Stable Discharge Details Clinical Impression: Acute exacerbation of chronic obstructive pulmonary disease, Bilateral cellulitis of lower leg Primary Care Provider: Evi Cloud ED Provider: Isabel Davis Home Meds and New Rx's Prescriptions: New prednisone 20 mg tablet See Rx Instructions .ROUTE .COMPLEX Qty: 12 RF: 0 Continued aspirin 81 mg Tablet,Delayed Release (Dr/Ec) 81 mg PO QAM RF: 0 citalopram 40 mg tablet 40 mg PO QAM RF: 0 diltiazem HCl [DILT-XR] 240 mg capsule,ext.rel 24h degradable 240 mg PO QAM RF: 0 folic acid 1 mg Tablet 1 mg PO QAM RF: 0 omeprazole 40 mg capsule,delayed release(DR/EC) 40 mg PO QAM RF: 0 Spiriva Respimat 2.5 mcg/actuation mist 1 inh INHALATION DAILY RF: 0 tolterodine 4 mg capsule,extended release 24hr 4 mg PO QAM RF: 0 cyanocobalamin (vitamin B-12) [Vitamin B-12] 100 mcg Tablet 1,000 mcg PO QAM RF: 0 amiodarone 200 mg tablet 200 mg PO BID RF: 0 budesonide-formoterol [Symbicort] 160-4.5 mcg/actuation HFA aerosol inhaler 2 inh INHALATION BID RF: 0 Eliquis 5 mg tablet 5 mg PO BID RF: 0 metoprolol tartrate 25 mg tablet 25 mg PO BID RF: 0 albuterol sulfate 90 mcg/actuation HFA aerosol inhaler 2 inh INHALATION Q4H PRNRF: 0 tramadol 50 mg Tablet 50 mg PO QID PRNRF: 0 acetaminophen [Tylenol] 325 mg Tablet 650 mg PO Q4H PRNRF: 0 sodium chloride [Saline Nasal Mist] 0.65 % Aerosol,[employer] 2 spray INTRANASAL Q2H PRNRF: 0 epinephrine 0.3 mg/0.3 mL Auto-Injector 0.3 mg IM PRN PRNRF: 0 metformin [Glucophage] 1,000 mg Tablet 1,000 mg PO BID RF: 0 furosemide [Lasix] 20 mg tablet 40 mg PO AC RF: 0 levothyroxine 75 mcg tablet 50 mcg PO QAM RF: 0 celecoxib 200 mg capsule 200 mg PO BID RF: 0 furosemide [Lasix] 20 mg Tablet 30 mg PO QACLUNCH RF: 0 ascorbic acid (vitamin C) [Vitamin C] 500 mg Tablet 500 mg PO BID RF: 0 ferrous sulfate 325 mg (65 mg iron) Tablet 325 mg PO BID RF: 0 T Gel Shampoo 1 applic topical .SUNDAY RF: 0 nystatin 100,000 unit/gram Powder 1 applic topical TID Qty: 30 RF: 0 amoxicillin-pot clavulanate 875-125 mg Tablet 1 tab PO BID Qty: 25 RF: 0 clindamycin HCl 150 mg Capsule 450 mg PO TID Qty: 25 RF: 0 Bio-K plus 50 billion cell Capsule,Delayed Release(Dr/Ec) 1 cap PO DAILY Qty: 60 RF: 0 Discharge Instructions Instructions: Cellulitis (ED), COPD (Chronic Obstructive Pulmonary Disease) (ED) Additional Instructions: Use your albuterol inhaler as needed and directed for shortness of breath. Take the steroids as directed until finished. Take your antibiotics as directed until finished. Follow-up with your primary care doctor within the next few days for reevaluation of your shortness of breath and leg cellulitis. Follow-up with wound care for recommendations for dressings on your legs as ne eded. Continue the Coflex TLC as directed for now. Continue to elevate your legs as much as possible. You can try compression stockings to help with edema. Return to the emergency department with any worsening or new concerning symptoms. Discharge Data Discharge Date/Time-TO BE ENTERED AT DEPARTURE: 06/29/20 15:09 Discharge Physician: Isabel Davis Medical Decision Making 69-year-old female with a history of morbid obesity, COPD chronically on 2 L nasal cannula oxygen, GERD, CHF, chronic leg cellulitis currently on oral antibiotics presents for worsening shortness of breath and left leg pain for the past 5 days. EKG on arrival notes a rate of 82, sinus, no STEMI, nondiagnostic. Patient appears comfortable and nontoxic. Respiratory rate and oxygen saturation within normal limits, on 2 L nasal cannula oxygen. She has diminished breath sounds throughout but no wheezing or crackles. She has bilateral lower extremity edema and erythema, worse on the left side, appears consistent with chronic venous status changes with potentially an overlying cellulitis. Differential diagnosis includes acute COPD exacerbation, pneumonia, CHF, ACS, electrolyte abnormality, arrhythmia, leg cellulitis. We will check screening labs, bilateral leg Doppler ultrasounds, CT chest to rule out PE, pneumonia, CHF. Labs and imaging reviewed. White blood cell count 11. No bands. Lactate normal at 1.1. Troponin negative. Covid negative. Doppler ultrasound negative. CT chest negative for PE or pneumonia. Patient reassessed and she feels better. Oxygen saturation 98% on 2 L. Breath sounds improved with improved movement throughout and some scattered wheezing. Patient is declining any additional neb treatments. Patient is currently on clindamycin and Augmentin x 48 hours per Yolanda nurse practitioner at the [facility]. Plan is to continue these oral antibiotics as directed until finished. We will add oral steroids for potential COPD exacerbation. Case also discussed any recommendations for dressing of patient's legs, as they were using Coflex TLC per her last admission and discharge. Discussed with second-floor regarding any potential wound care recommendations. Incidentally there was noted a 7 mm nodule in the right lower lobe with recommendation for follow-up CT chest in 12 months. This report was faxed to patient's primary care provider Dr. Lynn at the [facility]. Medical Records Medical records reviewed: Yes I reviewed the patient's medical records. Imaging Data Radiologic Study: Radiologist's impression: US EXTREMITY VENOUS BI CLINICAL HISTORY: b/l leg swelling, redness, r/o dvt. TECHNIQUE: Ultrasound performed using standard protocol. COMPARISON: US US ECHOCARDIOGRAM from 01/15/2020 FINDINGS: Duplex venous ultrasound was performed according to the usual protocol. The deep veins are freely compressible throughout and there is normal flow augmentation with manual calf compression. 2D and Doppler evaluation are unremarkable. IMPRESSION: No evidence of deep venous thrombosis of the right or left lower extremity. CT CHEST PE CTA CLINICAL HISTORY: shortness of breath, r/o PE, pneumonia. TECHNIQUE: Imaging Protocol: Axial CT angiography was performed with multi- slice acquisition and multi-planar and/or 3D reconstructions. CONTRAST MATERIAL: Intravenous: Omnipaque 350 Contrast volume:structured data in ml COMPARISON: CT CT CHEST/ABD/PEL W from 01/14/2020 FINDINGS: CT angiography of the chest was performed with intravenous infusion of 125 cc of Omnipaque 350. The heart is enlarged. There is probable coronary artery calcification. There is no pericardial effusion. There are multiple calcified thyroid nodules. The lungs are predominantly clear. Note is made of a 7 millimeter in diameter noncalcified well-circumscribed right lower lobe pulmonary nodule, unchanged from January 2020. Follow-up chest CT recommended in 12 months.. No pleural effusion. Tracheobronchial tree appears intact. No evidence of pulmonary embolic disease. Thoracic aorta is of normal diameter, no thoracic aortic aneurysm or dissection, major branch vessels appear intact. No mediastinal or hilar adenopathy. Images obtained through the upper abdomen show unremarkable appearance of the visualized portions of the liver, spleen, pancreas, adrenals, and kidneys. IMPRESSION: No evidence of pulmonary embolic disease. 7 millimeter in diameter right lower lobe noncalcified intrapulmonary nodule, follow-up chest CT recommended in 12 months. Lab Data Lab results reviewed: Yes I reviewed the patient's lab results. ECG Data Attestation: I personally reviewed and interpreted this ECG (s) as follows: Interpretation: Rate of 82, sinus, prolonged VT 222. Prolonged QT at 507. QRS 115. No STEMI. HPI General Mode of arrival: EMS . Date/Time Provider Initiated Documentation: 06/29/20 10:20 . Limitations to Documentation: no limitations . Information obtained by: patient . HPI Narrative: Patient is a 69-year-old female with a history of morbid obesity, COPD chronically on 2 L nasal cannula oxygen, CHF, atrial fibrillation on Eliquis, diabetes, GERD presents to the ED with a complaint of worsening shortness of breath and left leg pain and redness for the past 5 days. She is currently on 2 oral antibiotics, clindamycin and ceftriaxone for her leg cellulitis. She finished treatment with Augmentin prior to this dual antibiotic regimen. She states her shortness of breath is worse with exertion. She states she does ambulate with a walker. she denies any known fever, cough, chest pain, nausea, vomiting, diarrhea, abdominal pain or urinary symptoms. Related Data Home Medications Medication Instructions Recorded Confirmed Eliquis 5 mg PO BID 01/14/20 06/29/20 Spiriva Respimat 1 inh INHALATION DAILY 01/14/20 06/29/20 acetaminophen [Tylenol] 650 mg PO Q4H PRN 01/14/20 06/29/20 albuterol sulfate 2 inh INHALATION Q4H PRN 01/14/20 06/29/20 amiodarone 200 mg PO BID 01/14/20 06/29/20 aspirin 81 mg PO QAM 01/14/20 06/29/20 budesonide-formoterol [Symbicort] 2 inh INHALATION BID 01/14/20 06/29/20 citalopram 40 mg PO QAM 01/14/20 06/29/20 cyanocobalamin (vitamin B-12) 1,000 mcg PO QAM 01/14/20 06/29/20 [Vitamin B-12] diltiazem HCl [DILT-XR] 240 mg PO QAM 01/14/20 06/29/20 epinephrine 0.3 mg IM PRN PRN 01/14/20 06/29/20 folic acid 1 mg PO QAM 01/14/20 06/29/20 metformin [Glucophage] 1,000 mg PO BID 01/14/20 03/07/20 metoprolol tartrate 25 mg PO BID 01/14/20 06/29/20 omeprazole 40 mg PO QAM 01/14/20 06/29/20 sodium chloride [Saline Nasal Mist] 2 spray INTRANASAL Q2H PRN 01/14/20 06/29/20 tolterodine 4 mg PO QAM 01/14/20 06/29/20 tramadol 50 mg PO QID PRN 01/14/20 03/07/20 celecoxib 200 mg PO BID 01/23/20 06/29/20 T Gel Shampoo 1 applic TOPICAL .Sunday03/07/20 ascorbic acid (vitamin C) [Vitamin 500 mg PO BID 03/07/20 06/29/20 C] ferrous sulfate 325 mg PO BID 03/07/20 06/29/20 Bio-K plus 1 cap PO DAILY #60 cap 03/15/20 06/29/20 amoxicillin-pot clavulanate 1 tab PO BID #25 tab 03/15/20 clindamycin HCl 450 mg PO TID #25 cap 03/15/20 06/29/20 nystatin 1 applic TOPICAL TID #30 g 03/15/20 06/29/20 furosemide 20 mg tablet 40 mg PO AC tab 06/04/20 levothyroxine 75 mcg tablet 50 mcg PO QAM tab 06/04/20 06/29/20 furosemide [Lasix] 30 mg PO QACLUNCH 06/29/20 06/29/20 prednisone See Rx Instructions .ROUTE 06/29/20 .COMPLEX #12 tab Previous Rx's Medication Instructions Recorded Bio-K plus 1 cap PO DAILY #60 cap 03/15/20 amoxicillin-pot clavulanate 1 tab PO BID #25 tab 03/15/20 clindamycin HCl 450 mg PO TID #25 cap 03/15/20 nystatin 1 applic TOPICAL TID #30 g 03/15/20 prednisone See Rx Instructions .ROUTE 06/29/20 .COMPLEX #12 tab Allergies Allergy/AdvReac Type Severity Reaction Status Date / Time bee venom protein (honey bee) Allergy Unknown Unverified 06/04/20 10:07 Penicillins Allergy Unknown Unverified 06/04/20 10:07 strawberry Allergy Unknown Unverified 06/04/20 10:07 General KENDRICK: 2 Review of Systems All systems reviewed & are unremarkable except as noted in HPI and below Constitutional Constitutional: Reports as per HPI, Denies chills and Denies fever(s) Eyes Eyes: Denies blurry vision ENT Ears, Nose, Mouth, and Throat: Denies dizziness, Denies sore throat and Denies throat swelling Cardiovascular Cardiovascular: Denies chest pain and Reports dyspnea Respiratory Respiratory: Reports cough and Reports dyspnea Gastrointestinal Gastrointestinal: Denies abdominal pain, Denies diarrhea and Denies vomiting Genitourinary Genitourinary: Denies hematuria and Denies dysuria Musculoskeletal Musculoskeletal: Denies back pain, Denies numbness and Reports other (b/l leg pain, swelling) Integumentary/Breasts Skin/Breast: Denies lesions and Denies rash Neurologic Neurologic: Denies dizziness, Denies localized weakness and Denies numbness Allergic/Immunologic Allergic/Immunologic: Denies throat swelling [facility] Medical History Acute on chronic respiratory failure with hypoxia and hypercapnia Altered mental status Arthritis Atrial fibrillation Cellulitis bilateral lower extremities Cellulitis CHF (congestive heart failure) Chronic respiratory failure with hypoxia COPD (chronic obstructive pulmonary disease) Diabetes mellitus Family history unobtainable due to patient's condition GERD (gastroesophageal reflux disease) Hypercholesterolemia Mood disorder Muscle weakness (generalized) Obesity Plaque psoriasis Pneumonia Streptococcal bacteremia Toxic metabolic encephalopathy Type 2 diabetes mellitus Surgical History H/O hand surgery right index finger removal of tendon sheath ganglion H/O: hysterectomy History of carpal tunnel surgery of right wrist History of excision of lesion abdominal cyst removed S/P appendectomy Family History Father Heart disease 2 NH, at 62 Mother Heart disease Social History Smoking/Tobacco Use Status: Former Tobacco Use Smoking risk assessment performed?: Yes Alcohol Intake: never Drug use: Never Do you feel safe at home: Yes Do you feel safe in your relationship?: Yes Exam Const General: cooperative and no acute distress Nutritional Appearance: obese morbidly obese [facility] Head: normal to inspection Face and sinus: normal facial exam Eyes General: appearance normal, both eyes and all related structures EOM: EOM intact bilaterally Neck Neck: normal visual inspection and No submandibular swelling Lymphatic: no lymphadenopathy noted Chest Chest: normal inspection of the chest and no tenderness Resp Effort & Inspection: normal respiratory effort and able to speak in complete sentences Auscultation: diminished lung sounds bilaterally throughout Cardio Rate: regular rate Rhythm: regular rhythm GI Inspection: obesity Palpation: soft, not firm, not rigid and nontender Skin General skin exam: no rashes or lesions noted Neuro General: patient alert, patient awake and patient oriented x3 Cognition: normal cognition Speech: speech normal Motor: muscle tone normal throughout Sensory Exam: no sensory deficits noted Psych Appearance: grossly normal Mental Status: mental status grossly normal Speech and Movement: speech and movement normal Affect: normal affect
[2020-06-29 10:06] VITALS: BP 115/73; PULSE 89; RESP 17; TEMP 36.5; O2SAT 99
[2020-06-29 10:43] LABS: Abs Immature Grans 0.16 10^3/uL (0.0-0.06); Absolute Basophil Count 0.08 10^3/uL (0.0-0.2); Absolute Eosinophil Count 0.67 10^3/uL (0.0-0.7); Absolute Neutrophil Count 7.84 10^3/uL (1.2-6.7); Basophils % 0.7; Eosinophils % 5.8; HGB 11.4 g/dL (11.2-15.7); Immature Grans % 1.4; Lymphocytes % 18.1; MCH 31.5 pg (27.0-33.0); MCHC 30.8 % (32.0-36.0); MCV 102.2 fL (80-95); MPV 8.6 fL (8.0-11.0); Monocytes % 6.5; Neutrophils % 67.5; Nucleated RBC 0 %; Platelet Count 279 10^3/uL (130-400); RBC 3.62 10^6/uL (3.93-5.22); RDW 14.3 % (11.7-14.6); RDW-SD 53.9 fL; WBC 11.61 10^3/uL (4.4-10.8)
[2020-06-29 10:44] LABS: Absolute Monocyte Count 0.75 10^3/uL (0.1-0.8)
[2020-06-29 10:46] LABS: Lactate 1.1 mmol/L (0.6-1.4)
[2020-06-29 10:51] VITALS: PULSE 82; RESP 22; O2SAT 99
[2020-06-29 10:59] LABS: INR 0.9 (0.9-1.1); PTT Activated 22.3 sec (21.0-27.5); Prothrombin Time 9.5 sec (9.3-11.0)
--- NOTE | 2020-06-29 11:00 | DI.CT_ITS ---
EXAM: CT CHEST PE CTA CLINICAL HISTORY: shortness of breath, r/o PE, pneumonia. TECHNIQUE: Imaging Protocol: Axial CT angiography was performed with multi-slice acquisition and mu lti-planar and/or 3D reconstructions. CONTRAST MATERIAL: Intravenous: Omnipaque 350 Contrast volume:structured data in ml COMPARISON: CT CT CHEST/ABD/PEL W from 01/14/2020 FINDINGS: CT angiography of the chest was performed with intravenous infusion of 125 cc of Omnipaque 350. The heart is enlarged. There is probable coronary artery calcification. There is no pericardial eff usion. There are multiple calcified thyroid nodules. The lungs are predominantly clear. Note is made of a 7 millimeter in diameter noncalcified well-circ umscribed right lower lobe pulmonary nodule, unchanged from January 2020. Follow-up chest CT recomm ended in 12 months.. No pleural effusion. Tracheobronchial tree appears intact. No evidence of pulmonary embolic disease. Thoracic aorta is of normal diameter, no thoracic aortic an eurysm or dissection, major branch vessels appear intact. No mediastinal or hilar adenopathy. Images obtained through the upper abdomen show unremarkable appearance of the visualized portions of the liver, spleen, pancreas, adrenals, and kidneys. IMPRESSION: No evidence of pulmonary embolic disease. 7 millimeter in diameter right lower lobe noncalcified intrapulmonary nodule, follow-up chest CT esha mmended in 12 months. RADIATION DOSE DELIVERED: 716.38mGy.cm Total DLP 716.38mGy.cm Total DLP DATA REPOSITORY: All CT scans at this facility are submitted to the National Radiology Data Registry (NRDR) Dose Index Registry (DIR) with the [employer] ([employer]). RADIATION OPTIMIZATION: All CT scans at this facility use at least one of these dose optimization te chniques: automated exposure control; mA and/or kV adjustment per patient size (includes targeted exa ms where dose is matched to clinical indication); or iterative reconstruction.
--- NOTE | 2020-06-29 11:00 | DI.US_ITS ---
EXAM: US EXTREMITY VENOUS BI CLINICAL HISTORY: b/l leg swelling, redness, r/o dvt. TECHNIQUE: Ultrasound performed using standard protocol. COMPARISON: US US ECHOCARDIOGRAM from 01/15/2020 FINDINGS: Duplex venous ultrasound was performed according to the usual protocol. The deep veins are freely com pressible throughout and there is normal flow augmentation with manual calf compression. 2D and Doppl er evaluation are unremarkable. IMPRESSION: No evidence of deep venous thrombosis of the right or left lower extremity. DATA REPOSITORY:
[2020-06-29 11:06] LABS: ALT 27 U/L (14-59); AST 16 U/L (15-37); Albumin 2.6 g/dL (3.4-5.0); Alkaline Phosphatase 53 U/L (46-116); BUN 17 mg/dL (7-18); Bilirubin, Total 0.2 mg/dL (0.2-1.0); CREATININE 0.8 mg/dL (0.55-1.02); Calcium 8.7 mg/dL (8.5-10.1); Chloride 97 mmol/L (98-107); Glucose 211 mg/dL (74-106); Magnesium 1.8 mg/dL (1.8-2.4); Potassium 4.2 mmol/L (3.5-5.1); Sodium 140 mmol/L (136-145); Total Protein 5.9 g/dL (6.4-8.2)
[2020-06-29 11:09] LABS: Troponin I < 0.05 ng/mL (<0.06)
[2020-06-29] MEDS: methylPREDNISolone SUCC 125 MG VIAL IVP (11:15)
[2020-06-29 11:30] LABS: COVID-19 PCR Negative (Negative)
[2020-06-29] MEDS: Normal Saline - Diluent 50 ML VIAL IV (11:51)
[2020-06-29] MEDS: Albuterol/Ipratropium 3 ML UPD VIAL UPD (12:18)
[2020-06-29 13:04] VITALS: BP 126/47; PULSE 79; O2SAT 94
[2020-06-29 13:10] VITALS: O2SAT 94
[2020-06-29 14:58] VITALS: BP 132/59; PULSE 83; RESP 16; TEMP 36.8; O2SAT 95
--- NOTE | 2020-06-30 08:31 | NUR.NOTE ---
Nursing Note: Per Dr. Davis, an incidental finding on CT for PE report to fax to the [facility]. Spoke with BENNIE Taylor and he will forward this to Dr. Cloud. Report was faxed. Stephanie Urbina
== END 2020-06-29 15:09 | disposition home or self-care (01) ==
PROVIDERS: Emergency Provider Physician Assistant; PCP Family Medicine
DX: J44.1 Chronic obstructive pulmonary disease with (acute) exacerbation (principal); L03.115 Cellulitis of right lower limb; L03.116 Cellulitis of left lower limb; Z99.81 Dependence on supplemental oxygen; Z03.818 Encounter for observation for suspected exposure to other biological agents ruled out
CPT/HCPCS: 36415; 71275; 80053; 87635; 93005; 94640; 96374; 99285; 83605; 83735; 84484; 85025; 85610; 85730; 93010; 93970; J2930; J7620

== ENCOUNTER 2020-07-02 13:17 | Outpatient (REF) | payer MEDICARE, MEDICAID, SELFPAY ==
[2020-07-02 14:26] LABS: Abs Immature Grans 0.14 10^3/uL (0.0-0.06); Absolute Basophil Count 0.07 10^3/uL (0.0-0.2); Absolute Lymphocyte Count 1.58 10^3/uL (1.2-3.4); Absolute Neutrophil Count 11.88 10^3/uL (1.2-6.7); Basophils % 0.5; Eosinophils % 0.8; HCT 36.1 % (36.0-46.0); HGB 11.2 g/dL (11.2-15.7); Lymphocytes % 10.9; MCH 31.5 pg (27.0-33.0); MCV 101.7 fL (80-95); MPV 9.2 fL (8.0-11.0); Monocytes % 4.6; Neutrophils % 82.2; Nucleated RBC 0 %; Platelet Count 309 10^3/uL (130-400); RBC 3.55 10^6/uL (3.93-5.22); RDW 14.6 % (11.7-14.6); RDW-SD 54.4 fL; WBC 14.45 10^3/uL (4.4-10.8)
[2020-07-02 14:29] LABS: Absolute Eosinophil Count 0.12 10^3/uL (0.0-0.7); Absolute Monocyte Count 0.66 10^3/uL (0.1-0.8)
[2020-07-02 15:41] LABS: Anion Gap 3.6 mmol/L (3-11); BUN 22 mg/dL (7-18); C-Reactive Protein 0.54 mg/dL (0.0-0.3); CO2 36.4 mmol/L (21.0-32.0); CREATININE 0.9 mg/dL (0.55-1.02); Calcium 8.9 mg/dL (8.5-10.1); Chloride 99 mmol/L (98-107); Glucose 213 mg/dL (74-106); Potassium 3.9 mmol/L (3.5-5.1); Sodium 139 mmol/L (136-145)
== END 2020-07-02 13:18 | disposition home or self-care (01) ==
LOC: LBN 13:17
PROVIDERS: PCP Family Medicine; Visit Provider Family Medicine
DX: L03.116 Cellulitis of left lower limb (principal); E11.9 Type 2 diabetes mellitus without complications; B95.62 Methicillin resistant Staphylococcus aureus infection as the cause of diseases classified elsewhere; I50.813 Acute on chronic right heart failure
CPT/HCPCS: 80048; 85025; 86140

== ENCOUNTER 2020-07-08 09:04 | Outpatient (REF) | payer MEDICARE, MEDICAID, SELFPAY ==
[2020-07-08 09:30] LABS: Absolute Basophil Count 0.09 10^3/uL (0.0-0.2); Absolute Eosinophil Count 0.63 10^3/uL (0.0-0.7); Absolute Lymphocyte Count 2.76 10^3/uL (1.2-3.4); Absolute Monocyte Count 1.18 10^3/uL (0.1-0.8); Absolute Neutrophil Count 10.03 10^3/uL (1.2-6.7); Basophils % 0.6; Eosinophils % 4.2; HCT 31.4 % (36.0-46.0); HGB 9.7 g/dL (11.2-15.7); Lymphocytes % 18.4; MCH 31.7 pg (27.0-33.0); MCHC 30.9 % (32.0-36.0); MCV 102.6 fL (80-95); MPV 9.1 fL (8.0-11.0); Monocytes % 7.9; Neutrophils % 66.9; Nucleated RBC 0 %; Platelet Count 320 10^3/uL (130-400); RBC 3.06 10^6/uL (3.93-5.22); RDW 14.4 % (11.7-14.6); WBC 14.99 10^3/uL (4.4-10.8)
[2020-07-08 09:44] LABS: Anion Gap 3.2 mmol/L (3-11); BUN 17 mg/dL (7-18); C-Reactive Protein 1.65 mg/dL (0.0-0.3); CO2 39.8 mmol/L (21.0-32.0); CREATININE 0.7 mg/dL (0.55-1.02); Calcium 8.8 mg/dL (8.5-10.1); Chloride 96 mmol/L (98-107); Creatine Kinase 34 U/L (26-192); Glucose 168 mg/dL (74-106); Potassium 4.2 mmol/L (3.5-5.1); Sodium 139 mmol/L (136-145)
== END 2020-07-08 09:05 | disposition home or self-care (01) ==
LOC: LBN 09:04
PROVIDERS: PCP Family Medicine; Visit Provider Family Medicine
DX: L03.116 Cellulitis of left lower limb (principal); E11.9 Type 2 diabetes mellitus without complications; B95.62 Methicillin resistant Staphylococcus aureus infection as the cause of diseases classified elsewhere; I50.813 Acute on chronic right heart failure
CPT/HCPCS: 80048; 82550; 85025; 86140

== ENCOUNTER 2020-07-12 19:08 | Outpatient (REF) | payer MEDICARE, MEDICAID, SELFPAY ==
[2020-07-12 20:02] LABS: Abs Immature Grans 0.31 10^3/uL (0.0-0.06); Absolute Basophil Count 0.05 10^3/uL (0.0-0.2); Absolute Eosinophil Count 0.54 10^3/uL (0.0-0.7); Absolute Lymphocyte Count 1.89 10^3/uL (1.2-3.4); Absolute Monocyte Count 0.78 10^3/uL (0.1-0.8); Absolute Neutrophil Count 8.96 10^3/uL (1.2-6.7); Basophils % 0.4; Eosinophils % 4.3; HCT 33.5 % (36.0-46.0); HGB 9.9 g/dL (11.2-15.7); Immature Grans % 2.5; Lymphocytes % 15.1; MCH 31.4 pg (27.0-33.0); MCHC 29.6 % (32.0-36.0); MCV 106.3 fL (80-95); MPV 9.4 fL (8.0-11.0); Monocytes % 6.2; Neutrophils % 71.5; Nucleated RBC 0 %; Platelet Count 363 10^3/uL (130-400); RBC 3.15 10^6/uL (3.93-5.22); RDW 14.7 % (11.7-14.6); RDW-SD 57.2 fL; WBC 12.53 10^3/uL (4.4-10.8)
[2020-07-12 20:06] LABS: Anion Gap 6.4 mmol/L (3-11); BUN 13 mg/dL (7-18); CO2 36.6 mmol/L (21.0-32.0); CREATININE 0.7 mg/dL (0.55-1.02); Calcium 8.6 mg/dL (8.5-10.1); Chloride 98 mmol/L (98-107); Glucose 234 mg/dL (74-106); Potassium 4.3 mmol/L (3.5-5.1); Sodium 141 mmol/L (136-145)
[2020-07-12 20:29] LABS: Anisocytosis 1+; Diff Comment Agrees w/ Instrument; Macrocytosis 1+
== END 2020-07-12 19:09 | disposition home or self-care (01) ==
LOC: LBN 19:08
PROVIDERS: PCP Family Medicine; Visit Provider Family Medicine
DX: E11.9 Type 2 diabetes mellitus without complications (principal); L03.116 Cellulitis of left lower limb; B95.62 Methicillin resistant Staphylococcus aureus infection as the cause of diseases classified elsewhere; I50.813 Acute on chronic right heart failure
CPT/HCPCS: 80048; 85025

== ENCOUNTER 2020-07-19 15:40 | Outpatient (REF) | payer MEDICARE, MEDICAID, SELFPAY ==
[2020-07-19 14:18] LABS: Abs Immature Grans 0.21 10^3/uL (0.0-0.06); Absolute Basophil Count 0.07 10^3/uL (0.0-0.2); Absolute Eosinophil Count 0.55 10^3/uL (0.0-0.7); Absolute Monocyte Count 0.62 10^3/uL (0.1-0.8); Absolute Neutrophil Count 6.79 10^3/uL (1.2-6.7); Basophils % 0.7; Eosinophils % 5.4; HGB 9.7 g/dL (11.2-15.7); Immature Grans % 2.1; Lymphocytes % 19.5; MCH 30.5 pg (27.0-33.0); MCHC 29.4 % (32.0-36.0); MCV 103.8 fL (80-95); MPV 8.9 fL (8.0-11.0); Monocytes % 6.1; Neutrophils % 66.2; Nucleated RBC 0 %; Platelet Count 328 10^3/uL (130-400); RBC 3.18 10^6/uL (3.93-5.22); RDW 14.7 % (11.7-14.6); RDW-SD 55.3 fL; WBC 10.24 10^3/uL (4.4-10.8)
[2020-07-19 14:40] LABS: Anion Gap 2.6 mmol/L (3-11); BUN 12 mg/dL (7-18); C-Reactive Protein 2.59 mg/dL (0.0-0.3); CO2 40.4 mmol/L (21.0-32.0); CREATININE 0.8 mg/dL (0.55-1.02); Calcium 8.4 mg/dL (8.5-10.1); Chloride 98 mmol/L (98-107); Glucose 197 mg/dL (74-106); Potassium 3.9 mmol/L (3.5-5.1); Sodium 141 mmol/L (136-145)
== END 2020-07-19 15:41 | disposition home or self-care (01) ==
LOC: LBN 15:40
PROVIDERS: PCP Family Medicine; Visit Provider Family Medicine
DX: L03.116 Cellulitis of left lower limb (principal); B95.62 Methicillin resistant Staphylococcus aureus infection as the cause of diseases classified elsewhere; E11.9 Type 2 diabetes mellitus without complications; I50.9 Heart failure, unspecified
CPT/HCPCS: 80048; 85025; 86140

== ENCOUNTER 2020-07-26 15:42 | Outpatient (REF) | payer MEDICARE, MEDICAID, SELFPAY ==
[2020-07-26 15:55] LABS: Abs Immature Grans 0.11 10^3/uL (0.0-0.06); Absolute Basophil Count 0.06 10^3/uL (0.0-0.2); Absolute Eosinophil Count 0.42 10^3/uL (0.0-0.7); Absolute Lymphocyte Count 1.97 10^3/uL (1.2-3.4); Absolute Monocyte Count 0.64 10^3/uL (0.1-0.8); Absolute Neutrophil Count 5.62 10^3/uL (1.2-6.7); Basophils % 0.7; Eosinophils % 4.8; HCT 34.6 % (36.0-46.0); HGB 10.1 g/dL (11.2-15.7); Immature Grans % 1.2; Lymphocytes % 22.3; MCH 31.2 pg (27.0-33.0); MCHC 29.2 % (32.0-36.0); MCV 106.8 fL (80-95); MPV 8.9 fL (8.0-11.0); Monocytes % 7.3; Neutrophils % 63.7; Nucleated RBC 0 %; Platelet Count 317 10^3/uL (130-400); RBC 3.24 10^6/uL (3.93-5.22); RDW 15.4 % (11.7-14.6); RDW-SD 60.8 fL; WBC 8.82 10^3/uL (4.4-10.8)
[2020-07-26 16:10] LABS: Anion Gap 2.3 mmol/L (3-11); BUN 13 mg/dL (7-18); C-Reactive Protein 1.84 mg/dL (0.0-0.3); CO2 37.7 mmol/L (21.0-32.0); CREATININE 0.9 mg/dL (0.55-1.02); Calcium 8.8 mg/dL (8.5-10.1); Chloride 99 mmol/L (98-107); Glucose 243 mg/dL (74-106); Potassium 4.2 mmol/L (3.5-5.1); Sodium 139 mmol/L (136-145)
[2020-07-26 16:14] LABS: Diff Comment RBC Morph Reviewed; Macrocytosis 1+; Polychromasia Present
== END 2020-07-26 15:43 | disposition home or self-care (01) ==
LOC: LBN 15:42
PROVIDERS: PCP Family Medicine; Visit Provider Family Medicine
DX: L03.116 Cellulitis of left lower limb (principal); E11.9 Type 2 diabetes mellitus without complications; I50.813 Acute on chronic right heart failure; J96.22 Acute and chronic respiratory failure with hypercapnia; B95.62 Methicillin resistant Staphylococcus aureus infection as the cause of diseases classified elsewhere
CPT/HCPCS: 80048; 85025; 86140

== ENCOUNTER 2020-08-05 15:11 | Outpatient (REF) | payer MEDICARE, MEDICAID, SELFPAY ==
[2020-08-05 15:47] LABS: Abs Immature Grans 0.17 10^3/uL (0.0-0.06); Absolute Eosinophil Count 0.38 10^3/uL (0.0-0.7); Absolute Lymphocyte Count 2.76 10^3/uL (1.2-3.4); Absolute Neutrophil Count 8.44 10^3/uL (1.2-6.7); Basophils % 0.8; HCT 38.7 % (36.0-46.0); HGB 11.8 g/dL (11.2-15.7); Immature Grans % 1.3; Lymphocytes % 21.8; MCH 31.1 pg (27.0-33.0); MCHC 30.5 % (32.0-36.0); MCV 101.8 fL (80-95); MPV 9.5 fL (8.0-11.0); Monocytes % 6.3; Neutrophils % 66.8; Nucleated RBC 0 %; Platelet Count 366 10^3/uL (130-400); RDW 14.5 % (11.7-14.6); RDW-SD 53.6 fL; WBC 12.64 10^3/uL (4.4-10.8)
[2020-08-05 17:10] LABS: Anion Gap 3.9 mmol/L (3-11); BUN 15 mg/dL (7-18); C-Reactive Protein 2.16 mg/dL (0.0-0.3); CO2 38.1 mmol/L (21.0-32.0); CREATININE 0.9 mg/dL (0.55-1.02); Calcium 9.3 mg/dL (8.5-10.1); Chloride 98 mmol/L (98-107); Glucose 200 mg/dL (74-106); Potassium 4.2 mmol/L (3.5-5.1); Sodium 140 mmol/L (136-145)
== END 2020-08-05 15:12 | disposition home or self-care (01) ==
LOC: LBN 15:11
PROVIDERS: PCP Family Medicine; Visit Provider Family Medicine
DX: I50.813 Acute on chronic right heart failure (principal); L03.116 Cellulitis of left lower limb; E11.9 Type 2 diabetes mellitus without complications; B95.62 Methicillin resistant Staphylococcus aureus infection as the cause of diseases classified elsewhere
CPT/HCPCS: 80048; 85025; 86140

== ENCOUNTER 2020-08-10 14:13 | Outpatient (REF) | payer MEDICARE, MEDICAID, SELFPAY ==
[2020-08-10 14:20] LABS: Abs Immature Grans 0.12 10^3/uL (0.0-0.06); Absolute Basophil Count 0.08 10^3/uL (0.0-0.2); Absolute Eosinophil Count 0.33 10^3/uL (0.0-0.7); Absolute Monocyte Count 0.69 10^3/uL (0.1-0.8); Basophils % 0.7; Eosinophils % 2.9; HCT 37.9 % (36.0-46.0); HGB 11.4 g/dL (11.2-15.7); Lymphocytes % 18.3; MCH 30.8 pg (27.0-33.0); MCHC 30.1 % (32.0-36.0); MCV 102.4 fL (80-95); MPV 9.3 fL (8.0-11.0); Neutrophils % 71.1; Nucleated RBC 0 %; Platelet Count 321 10^3/uL (130-400); RDW 14.2 % (11.7-14.6); RDW-SD 54.1 fL
[2020-08-10 14:21] LABS: Absolute Neutrophil Count 8.18 10^3/uL (1.2-6.7)
[2020-08-10 14:48] LABS: C-Reactive Protein 1.59 mg/dL (0.0-0.3)
== END 2020-08-10 14:14 | disposition home or self-care (01) ==
LOC: LBN 14:13
PROVIDERS: Nurse Practitioner Gerontology; PCP Family Medicine; Visit Provider Family Medicine
DX: L03.116 Cellulitis of left lower limb (principal); E11.9 Type 2 diabetes mellitus without complications; B95.62 Methicillin resistant Staphylococcus aureus infection as the cause of diseases classified elsewhere; I50.813 Acute on chronic right heart failure
CPT/HCPCS: 85025; 86140

== ENCOUNTER 2020-09-14 17:01 | Outpatient (REF) | payer MEDICARE, MEDICAID, SELFPAY ==
[2020-09-14 15:06] LABS: Absolute Basophil Count 0.08 10^3/uL (0.0-0.2); Absolute Eosinophil Count 0.29 10^3/uL (0.0-0.7); Absolute Lymphocyte Count 2.03 10^3/uL (1.2-3.4); Absolute Monocyte Count 0.66 10^3/uL (0.1-0.8); Absolute Neutrophil Count 6.45 10^3/uL (1.2-6.7); Basophils % 0.8; HCT 39.1 % (36.0-46.0); HGB 11.5 g/dL (11.2-15.7); Lymphocytes % 21.1; MCH 30.8 pg (27.0-33.0); MCHC 29.4 % (32.0-36.0); MCV 104.8 fL (80-95); MPV 9.4 fL (8.0-11.0); Monocytes % 6.9; Neutrophils % 67.2; Nucleated RBC 0 %; Platelet Count 337 10^3/uL (130-400); RBC 3.73 10^6/uL (3.93-5.22); RDW 13.6 % (11.7-14.6); RDW-SD 52.8 fL; WBC 9.61 10^3/uL (4.4-10.8)
[2020-09-14 15:18] LABS: BUN 14 mg/dL (7-18); CREATININE 0.9 mg/dL (0.55-1.02); Chloride 97 mmol/L (98-107); Glucose 202 mg/dL (74-106); Potassium 4.3 mmol/L (3.5-5.1); Sodium 140 mmol/L (136-145)
== END 2020-09-14 17:02 | disposition home or self-care (01) ==
LOC: LBN 17:01
PROVIDERS: PCP Family Medicine; Visit Provider Nurse Practitioner Gerontology
DX: L03.116 Cellulitis of left lower limb (principal); I50.813 Acute on chronic right heart failure; R60.0 Localized edema
CPT/HCPCS: 80048; 85025; 86140

== ENCOUNTER 2020-09-28 12:55 | Outpatient (REF) | payer MEDICARE, MEDICAID, SELFPAY ==
[2020-09-28 13:41] LABS: Absolute Basophil Count 0.08 10^3/uL (0.0-0.2); Absolute Eosinophil Count 0.29 10^3/uL (0.0-0.7); Absolute Lymphocyte Count 2.03 10^3/uL (1.2-3.4); Absolute Monocyte Count 0.68 10^3/uL (0.1-0.8); Absolute Neutrophil Count 8.47 10^3/uL (1.2-6.7); Basophils % 0.7; Eosinophils % 2.5; HCT 39.6 % (36.0-46.0); HGB 11.9 g/dL (11.2-15.7); Immature Grans % 0.9; Lymphocytes % 17.4; MCHC 30.1 % (32.0-36.0); MCV 103.1 fL (80-95); MPV 9.2 fL (8.0-11.0); Monocytes % 5.8; Neutrophils % 72.7; Nucleated RBC 0 %; Platelet Count 333 10^3/uL (130-400); RBC 3.84 10^6/uL (3.93-5.22); RDW 13.2 % (11.7-14.6); RDW-SD 50.4 fL; WBC 11.65 10^3/uL (4.4-10.8)
[2020-09-28 13:58] LABS: Anion Gap 2.1 mmol/L (3-11); BUN 17 mg/dL (7-18); C-Reactive Protein 2.01 mg/dL (0.0-0.3); CO2 39.9 mmol/L (21.0-32.0); CREATININE 0.8 mg/dL (0.55-1.02); Calcium 8.8 mg/dL (8.5-10.1); Chloride 98 mmol/L (98-107); Glucose 184 mg/dL (74-106); Potassium 3.9 mmol/L (3.5-5.1); Sodium 140 mmol/L (136-145)
== END 2020-09-28 12:56 | disposition home or self-care (01) ==
LOC: LBN 12:55
PROVIDERS: PCP Family Medicine; Visit Provider Internal Medicine
DX: L03.116 Cellulitis of left lower limb (principal); I48.91 Unspecified atrial fibrillation; Z79.01 Long term (current) use of anticoagulants
CPT/HCPCS: 80048; 85025; 86140

== ENCOUNTER 2020-09-30 21:02 | Outpatient (REF) | payer MEDICARE, MEDICAID, SELFPAY ==
[2020-09-30 13:04] LABS: Absolute Basophil Count 0.08 10^3/uL (0.0-0.2); Absolute Eosinophil Count 0.36 10^3/uL (0.0-0.7); Absolute Monocyte Count 0.77 10^3/uL (0.1-0.8); Basophils % 0.7; Eosinophils % 3.1; HCT 39.8 % (36.0-46.0); HGB 11.9 g/dL (11.2-15.7); Immature Grans % 0.9; Lymphocytes % 19.8; MCH 30.8 pg (27.0-33.0); MCHC 29.9 % (32.0-36.0); MCV 103.1 fL (80-95); MPV 9.5 fL (8.0-11.0); Monocytes % 6.6; Neutrophils % 68.9; Nucleated RBC 0 %; Platelet Count 335 10^3/uL (130-400); RBC 3.86 10^6/uL (3.93-5.22); RDW 13.2 % (11.7-14.6); RDW-SD 50.5 fL; WBC 11.61 10^3/uL (4.4-10.8)
== END 2020-09-30 21:03 | disposition home or self-care (01) ==
LOC: LBN 21:02
PROVIDERS: PCP Family Medicine; Visit Provider Nurse Practitioner Gerontology
DX: L03.116 Cellulitis of left lower limb (principal)
CPT/HCPCS: 85025

== ENCOUNTER 2020-10-01 04:39 | Outpatient (CLI) | payer MEDICARE, MEDICAID, SELFPAY ==
--- NOTE | 2020-10-01 14:32 | DI.RAD_ITS ---
Exam(s) XR ABDOMEN FLAT PLATE EXAM: 2D digital imaging was performed. CLINICAL HISTORY: RT SIDED PAIN, ? KIDNEY STONE. COMPARISON: CT CT CHEST PE CTA from 06/29/[address] CHEST PE CTA from 06/29/2020 TECHNIQUE: Upright views of the abdomen performed. FINDINGS: Exam is severely limited by patient body habitus. The patient could not lie flat. The entire abdome n is not included on the exam. There is a large quantity of stool seen throughout the colon. There is no abnormal small bowel distention or evidence of free air. The heart appears enlarged. The visu alized portions of the lung bases are clear. No large renal calcifications are seen. Exam is quite limited for evaluation of renal calculi IMPRESSION: 1. Nonobstructive bowel gas pattern. Large quantity of stool. 2. No radiopaque calculi are visible however the exam is quite limited.. DATA REPOSITORY: RADIATION DOSE DELIVERED:
== END 2020-10-01 04:59 ==
PROVIDERS: PCP Family Medicine; Visit Provider Nurse Practitioner Gerontology
DX: R10.9 Unspecified abdominal pain (principal)
CPT/HCPCS: 74018

== ENCOUNTER 2020-10-26 18:35 | Outpatient (REF) | payer MEDICARE, MEDICAID, SELFPAY ==
[2020-10-26 19:31] LABS: Absolute Basophil Count 0.07 10^3/uL (0.0-0.2); Absolute Monocyte Count 0.77 10^3/uL (0.1-0.8); Absolute Neutrophil Count 6.21 10^3/uL (1.2-6.7); Basophils % 0.7; Eosinophils % 3.1; HCT 39.3 % (36.0-46.0); HGB 11.6 g/dL (11.2-15.7); Lymphocytes % 22.8; MCHC 29.5 % (32.0-36.0); MCV 105.1 fL (80-95); MPV 9.4 fL (8.0-11.0); Neutrophils % 64.4; Nucleated RBC 0 %; Platelet Count 315 10^3/uL (130-400); RBC 3.74 10^6/uL (3.93-5.22); RDW-SD 54.8 fL; WBC 9.65 10^3/uL (4.4-10.8)
[2020-10-26 20:04] LABS: Anion Gap -0.1 mmol/L (3-11); BUN 16 mg/dL (7-18); C-Reactive Protein 2.18 mg/dL (0.0-0.3); CO2 42.1 mmol/L (21.0-32.0); CREATININE 0.8 mg/dL (0.55-1.02); Calcium 9.3 mg/dL (8.5-10.1); Chloride 101 mmol/L (98-107); Glucose 142 mg/dL (74-106); NT-proBNP 114 pg/mL (<300); Potassium 4.4 mmol/L (3.5-5.1); Sodium 143 mmol/L (136-145); TSH (W/Ref FT4) 7.03 uIU/mL (0.36-3.74)
[2020-10-26 20:32] LABS: FREE T4 0.76 ng/dL (0.76-1.46)
== END 2020-10-26 18:36 | disposition home or self-care (01) ==
LOC: LBN 18:35
PROVIDERS: PCP Family Medicine; Visit Provider Nurse Practitioner Gerontology
DX: E03.9 Hypothyroidism, unspecified (principal); I50.813 Acute on chronic right heart failure; B95.62 Methicillin resistant Staphylococcus aureus infection as the cause of diseases classified elsewhere
CPT/HCPCS: 80048; 83880; 84439; 84443; 85025; 86140

== ENCOUNTER 2020-10-27 11:25 | Emergency (ER) | payer MEDICARE, MEDICAID, SELFPAY ==
--- NOTE | 2020-10-27 11:45 | DI.US_ITS ---
Exam(s) US EXTREMITY VENOUS BI EXAM: US EXTREMITY VENOUS BI CLINICAL HISTORY: leg swelling TECHNIQUE: Grayscale, color, and doppler imaging of the deep venous system of both lower extremities was performed. COMPARISON: US US EXTREMITY VENOUS BI from 06/29/2020 FINDINGS: There is no evidence of intraluminal thrombus and there is normal compression and augmentation demons trated within the common femoral veins, femoral veins, and popliteal veins of both lower extremities. In the calves the interrogated veins also exhibit normal compression/ augmentation properties. The greater saphenous veins also appear patent as do the saphenofemoral junctions bilaterally.. IMPRESSION: 1. No ultrasound evidence of DVT in either lower extremity. DATA REPOSITORY:
--- NOTE | 2020-10-27 11:46 | ED.GENADUL_ITS ---
Discharge Plan Disposition Patient Disposition: [facility] (LEVEL 2) [facility] Condition: Stable Discharge Details Chief Complaint: Orthopedic Clinical Impression: Localized swelling of both lower legs Primary Care Provider: Evi Cloud ED Provider: Andrew England [place] Meds and New Rx's Prescriptions: Continued aspirin 81 mg Tablet,Delayed Release (Dr/Ec) 81 mg PO QAM RF: 0 citalopram 40 mg tablet 40 mg PO QAM RF: 0 diltiazem HCl [DILT-XR] 240 mg capsule,ext.rel 24h degradable 240 mg PO QAM RF: 0 folic acid 1 mg Tablet 1 mg PO QAM RF: 0 omeprazole 40 mg capsule,delayed release(DR/EC) 40 mg PO QAM RF: 0 Spiriva Respimat 2.5 mcg/actuation mist 1 inh INHALATION DAILY RF: 0 tolterodine 4 mg capsule,extended release 24hr 4 mg PO QAM RF: 0 cyanocobalamin (vitamin B-12) [Vitamin B-12] 100 mcg Tablet 1,000 mcg PO QAM RF: 0 amiodarone 200 mg tablet 200 mg PO BID RF: 0 budesonide-formoterol [Symbicort] 160-4.5 mcg/actuation HFA aerosol inhaler 2 inh INHALATION BID RF: 0 Eliquis 5 mg tablet 5 mg PO BID RF: 0 metoprolol tartrate 25 mg tablet 25 mg PO BID RF: 0 albuterol sulfate 90 mcg/actuation HFA aerosol inhaler 2 inh INHALATION Q4H PRNRF: 0 tramadol 50 mg Tablet 50 mg PO QID PRNRF: 0 acetaminophen [Tylenol] 325 mg Tablet 650 mg PO Q4H PRNRF: 0 sodium chloride [Saline Nasal Mist] 0.65 % Aerosol,[place] 2 spray INTRANASAL Q2H PRNRF: 0 epinephrine 0.3 mg/0.3 mL Auto-Injector 0.3 mg IM PRN PRNRF: 0 metformin [Glucophage] 1,000 mg Tablet 1,000 mg PO BID RF: 0 furosemide [Lasix] 20 mg tablet 40 mg PO AC RF: 0 levothyroxine 75 mcg tablet 50 mcg PO QAM RF: 0 celecoxib 200 mg capsule 200 mg PO BID RF: 0 furosemide [Lasix] 20 mg Tablet 30 mg PO QACLUNCH RF: 0 prednisone 20 mg tablet See Rx Instructions .ROUTE .COMPLEX Qty: 12 RF: 0 ascorbic acid (vitamin C) [Vitamin C] 500 mg Tablet 500 mg PO BID RF: 0 ferrous sulfate 325 mg (65 mg iron) Tablet 325 mg PO BID RF: 0 T Gel Shampoo 1 applic topical .SUNDAY RF: 0 nystatin 100,000 unit/gram Powder 1 applic topical TID Qty: 30 RF: 0 amoxicillin-pot clavulanate 875-125 mg Tablet 1 tab PO BID Qty: 25 RF: 0 clindamycin HCl 150 mg Capsule 450 mg PO TID Qty: 25 RF: 0 Bio-K plus 50 billion cell Capsule,Delayed Release(Dr/Ec) 1 cap PO DAILY Qty: 60 RF: 0 Discharge Instructions Additional Instructions: your ultrasound did not show a blot clot follow up with your primary care provider within a week if you feel more ill, have severe worsening pain or shortness of breath return to the emergency department Medical Decision Making 70 yo female who has numerous medical problems and resides at the [facility] comes in with calf pain. She has chronic swelling of her legs and apparently started augmentin yesterday for a left leg cellulitis. She has had pain in her right calf intermittent the past month and was sent here for an u/s. Her legs both have edema to the knees bilaterally. Has no erythema or warmth on exam to suggest cellulitis at this time or more serious infections such as nec fasc. She does have right calf tenderness. No dyspnea or chest pain. I suspect this is chronic lymphedema but will obtain u/s to evaluate for dvt u/s negative for dvt remains stable and still no erythema or warmth of the legs. Stable for d/c and return precautions given Differential Diagnosis Differential Diagnosis: lymphedema, dvt, venous stasis Medical Records Medical records reviewed: Yes I reviewed the patient's medical records. Imaging Data Radiologic Study: Attestation: I personally reviewed and interpreted this imaging study as follows: Imaging: Ultrasound Radiologist's impression: no dvt HPI General Mode of arrival: EMS . Date/Time Provider Initiated Documentation: 10/27/20 11:41 . Limitations to Documentation: no limitations . Information obtained by: patient . History of Present Illness 70 year old F presents to the emergency department with the chief complaint of right calf pain, described as moderate, Quality is described as aching, and is localized to the left, right and lower extremity. Patient reports no radiation. Patient started experiencing this week(s) (4) and it has been intermittent. No relieving factors improve symptom(s), No exacerbating factors reported . Patient notes no other symptoms.. Related Data Home Medications Medication Instructions Recorded Confirmed Eliquis 5 mg PO BID 01/14/20 06/29/20 Spiriva Respimat 1 inh INHALATION DAILY 01/14/20 06/29/20 acetaminophen [Tylenol] 650 mg PO Q4H PRN 01/14/20 06/29/20 albuterol sulfate 2 inh INHALATION Q4H PRN 01/14/20 06/29/20 amiodarone 200 mg PO BID 01/14/20 06/29/20 aspirin 81 mg PO QAM 01/14/20 06/29/20 budesonide-formoterol [Symbicort] 2 inh INHALATION BID 01/14/20 06/29/20 citalopram 40 mg PO QAM 01/14/20 06/29/20 cyanocobalamin (vitamin B-12) 1,000 mcg PO QAM 01/14/20 06/29/20 [Vitamin B-12] diltiazem HCl [DILT-XR] 240 mg PO QAM 01/14/20 06/29/20 epinephrine 0.3 mg IM PRN PRN 01/14/20 06/29/20 folic acid 1 mg PO QAM 01/14/20 06/29/20 metformin [Glucophage] 1,000 mg PO BID 01/14/20 03/07/20 metoprolol tartrate 25 mg PO BID 01/14/20 06/29/20 omeprazole 40 mg PO QAM 01/14/20 06/29/20 sodium chloride [Saline Nasal Mist] 2 spray INTRANASAL Q2H PRN 01/14/20 06/29/20 tolterodine 4 mg PO QAM 01/14/20 06/29/20 tramadol 50 mg PO QID PRN 01/14/20 03/07/20 celecoxib 200 mg PO BID 01/23/20 06/29/20 T Gel Shampoo 1 applic TOPICAL .Sunday03/07/20 ascorbic acid (vitamin C) [Vitamin 500 mg PO BID 03/07/20 06/29/20 C] ferrous sulfate 325 mg PO BID 03/07/20 06/29/20 Bio-K plus 1 cap PO DAILY #60 cap 03/15/20 06/29/20 amoxicillin-pot clavulanate 1 tab PO BID #25 tab 03/15/20 clindamycin HCl 450 mg PO TID #25 cap 03/15/20 06/29/20 nystatin 1 applic TOPICAL TID #30 g 03/15/20 06/29/20 furosemide 20 mg tablet 40 mg PO AC tab 06/04/20 levothyroxine 75 mcg tablet 50 mcg PO QAM tab 06/04/20 06/29/20 furosemide [Lasix] 30 mg PO QACLUNCH 06/29/20 06/29/20 prednisone See Rx Instructions .ROUTE 06/29/20 .COMPLEX #12 tab Previous Rx's Medication Instructions Recorded Bio-K plus 1 cap PO DAILY #60 cap 03/15/20 amoxicillin-pot clavulanate 1 tab PO BID #25 tab 03/15/20 clindamycin HCl 450 mg PO TID #25 cap 03/15/20 nystatin 1 applic TOPICAL TID #30 g 03/15/20 prednisone See Rx Instructions .ROUTE 06/29/20 .COMPLEX #12 tab Allergies Allergy/AdvReac Type Severity Reaction Status Date / Time bee venom protein (honey bee) Allergy Unknown Unverified 10/27/20 11:41 Penicillins Allergy Unknown Unverified 10/27/20 11:41 strawberry Allergy Unknown Unverified 10/27/20 11:41 General Stated Complaint: Orthopedic KENDRICK: 3 Review of Systems All systems reviewed & are unremarkable except as noted in HPI and below Constitutional Constitutional: Denies chills, Denies fever(s) and Denies weakness Cardiovascular Cardiovascular: Denies chest pain and Denies dyspnea Respiratory Respiratory: Denies cough and Denies dyspnea Gastrointestinal Gastrointestinal: Denies abdominal pain, Denies nausea and Denies vomiting Neurologic Neurologic: Denies weakness [facility] [place] Medical History Acute on chronic respiratory failure with hypoxia and hypercapnia Altered mental status Arthritis Atrial fibrillation Cellulitis bilateral lower extremities Cellulitis CHF (congestive heart failure) Chronic respiratory failure with hypoxia COPD (chronic obstructive pulmonary disease) Diabetes mellitus Family history unobtainable due to patient's condition GERD (gastroesophageal reflux disease) Hypercholesterolemia Mood disorder Muscle weakness (generalized) Obesity Plaque psoriasis Pneumonia Streptococcal bacteremia Toxic metabolic encephalopathy Type 2 diabetes mellitus Surgical History H/O hand surgery right index finger removal of tendon sheath ganglion H/O: hysterectomy History of carpal tunnel surgery of right wrist History of excision of lesion abdominal cyst removed S/P appendectomy Family History Father Heart disease 2 [place], at 62 Mother Heart disease Social History Smoking/Tobacco Use Status: Former Tobacco Use Smoking risk assessment performed?: Yes Alcohol Intake: never Drug use: Never Do you feel safe at home: Yes Do you feel safe in your relationship?: Yes Exam Const General: no acute distress Orientation: alert HENMT Head: normal to inspection Ears: external ears normal General nose exam: external nose normal Mouth: moist mucous membranes Eyes General: appearance normal, both eyes and all related structures Neck Neck: normal visual inspection Resp Effort & Inspection: normal respiratory effort and able to speak in complete sentences Cardio Rate: regular rate Skin General skin exam: no rashes or lesions noted Neuro General: patient alert and patient oriented x3 Extrem General: full ROM and capillary refill normal Psych Mental Status: mental status grossly normal Course Vital Signs Vital signs: Vital Signs Temperature 36.4 C L 10/27/20 11:32 Pulse 69 10/27/20 11:32 Respiratory Rate 14 10/27/20 11:32 Blood Pressure 157/74 H 10/27/20 11:32 Pulse Oximetry 98 10/27/20 11:32 Temperature 36.4 C L 10/27/20 11:32 Temperature Source Skin 10/27/20 11:32 Pulse 69 10/27/20 11:32 Respiratory Rate 14 10/27/20 11:32 Respiratory Effort Non-Labored 10/27/20 11:43 Blood Pressure 157/74 H 10/27/20 11:32 Blood Pressure Position Supine 10/27/20 11:32 Pulse Oximetry 98 10/27/20 11:32 Oxygen Delivery Method Room Air 10/27/20 11:32 Oxygen Flow Rate 0 10/27/20 11:32 Pain Level 6 10/27/20 11:43
[2020-10-27 11:54] VITALS: BP 123/54; PULSE 78; RESP 20; TEMP 36.6; O2SAT 97
[2020-10-27 12:47] VITALS: BP 130/55; PULSE 79; TEMP 36.8; O2SAT 96
== END 2020-10-27 13:05 | disposition intermediate care facility (04) ==
LOC: ER 12:48
PROVIDERS: Emergency Provider Emergency Medicine; PCP Family Medicine
DX: M79.661 Pain in right lower leg (principal); R60.0 Localized edema; E11.9 Type 2 diabetes mellitus without complications; J44.9 Chronic obstructive pulmonary disease, unspecified; Z79.84 Long term (current) use of oral hypoglycemic drugs
CPT/HCPCS: 99284; 93970; 99283

== ENCOUNTER 2020-11-03 14:42 | Outpatient (REF) | payer MEDICARE, MEDICAID, SELFPAY ==
[2020-11-03 16:52] LABS: Abs Immature Grans 0.12 10^3/uL (0.0-0.06); Absolute Basophil Count 0.07 10^3/uL (0.0-0.2); Absolute Eosinophil Count 0.29 10^3/uL (0.0-0.7); Absolute Lymphocyte Count 1.99 10^3/uL (1.2-3.4); Absolute Monocyte Count 0.61 10^3/uL (0.1-0.8); Absolute Neutrophil Count 6.46 10^3/uL (1.2-6.7); Basophils % 0.7; HCT 40.2 % (36.0-46.0); HGB 11.8 g/dL (11.2-15.7); Immature Grans % 1.3; Lymphocytes % 20.9; MCH 30.6 pg (27.0-33.0); MCHC 29.4 % (32.0-36.0); MCV 104.4 fL (80-95); MPV 9.8 fL (8.0-11.0); Monocytes % 6.4; Neutrophils % 67.7; Nucleated RBC 0 %; Platelet Count 278 10^3/uL (130-400); RBC 3.85 10^6/uL (3.93-5.22); RDW 14.4 % (11.7-14.6); RDW-SD 55.2 fL; WBC 9.54 10^3/uL (4.4-10.8)
[2020-11-03 17:09] LABS: Anion Gap 3.3 mmol/L (3-11); BUN 14 mg/dL (7-18); CO2 40.7 mmol/L (21.0-32.0); CREATININE 0.9 mg/dL (0.55-1.02); Calcium 8.9 mg/dL (8.5-10.1); Chloride 97 mmol/L (98-107); Glucose 237 mg/dL (74-106); Potassium 4.1 mmol/L (3.5-5.1); Sodium 141 mmol/L (136-145)
[2020-11-03 18:13] LABS: Hemoglobin A1C 6.9 % (<5.7)
[2020-11-04 01:56] LABS: Vitamin D 25 Total < 5 ng/mL (30-100)
== END 2020-11-03 14:43 | disposition home or self-care (01) ==
LOC: LBN 14:42
PROVIDERS: PCP Family Medicine; Visit Provider Nurse Practitioner Gerontology
DX: E11.9 Type 2 diabetes mellitus without complications (principal); I50.813 Acute on chronic right heart failure; M62.81 Muscle weakness (generalized); L03.116 Cellulitis of left lower limb; Z79.4 Long term (current) use of insulin
CPT/HCPCS: 80048; 82306; 83036; 85025

== ENCOUNTER 2020-12-01 18:10 | Outpatient (REF) | payer MEDICARE, MEDICAID, SELFPAY ==
[2020-12-01 19:01] LABS: TSH (W/Ref FT4) 2.02 uIU/mL (0.36-3.74)
== END 2020-12-01 18:11 | disposition home or self-care (01) ==
LOC: LBN 18:10
PROVIDERS: PCP Family Medicine; Visit Provider Internal Medicine
DX: E11.9 Type 2 diabetes mellitus without complications (principal); E03.9 Hypothyroidism, unspecified; E66.01 Morbid (severe) obesity due to excess calories; E21.3 Hyperparathyroidism, unspecified
CPT/HCPCS: 84443

== ENCOUNTER → 2020-12-02 09:55 | Outpatient (BNVA) | payer MEDICARE, MEDICAID, SELFPAY | PROVIDERS: PCP Family Medicine; Referring Provider Family Medicine; Visit Provider Internal Medicine Cardiovascular Disease | DX: I48.91 Unspecified atrial fibrillation (principal); I50.813 Acute on chronic right heart failure; J96.21 Acute and chronic respiratory failure with hypoxia; J96.22 Acute and chronic respiratory failure with hypercapnia; R22.43 Localized swelling, mass and lump, lower limb, bilateral; Z79.01 Long term (current) use of anticoagulants; J44.9 Chronic obstructive pulmonary disease, unspecified; Z99.81 Dependence on supplemental oxygen | CPT/HCPCS: 99214 ==

== ENCOUNTER 2020-12-08 18:41 | Outpatient (REF) | payer MEDICARE, MEDICAID, SELFPAY ==
[2020-12-08 19:06] LABS: Abs Immature Grans 0.09 10^3/uL (0.0-0.06); Absolute Basophil Count 0.04 10^3/uL (0.0-0.2); Absolute Eosinophil Count 0.01 10^3/uL (0.0-0.7); Absolute Lymphocyte Count 1.03 10^3/uL (1.2-3.4); Absolute Monocyte Count 0.22 10^3/uL (0.1-0.8); Absolute Neutrophil Count 10.78 10^3/uL (1.2-6.7); Basophils % 0.3; Eosinophils % 0.1; HCT 39.8 % (36.0-46.0); HGB 11.7 g/dL (11.2-15.7); Immature Grans % 0.7; Lymphocytes % 8.5; MCH 30.9 pg (27.0-33.0); MCHC 29.4 % (32.0-36.0); MPV 9.5 fL (8.0-11.0); Monocytes % 1.8; Neutrophils % 88.6; Nucleated RBC 0 %; Platelet Count 274 10^3/uL (130-400); RBC 3.79 10^6/uL (3.93-5.22); RDW-SD 54.6 fL; WBC 12.17 10^3/uL (4.4-10.8)
== END 2020-12-08 18:42 | disposition home or self-care (01) ==
LOC: LBN 18:41
PROVIDERS: PCP Family Medicine; Visit Provider Internal Medicine
DX: L03.116 Cellulitis of left lower limb (principal); J96.21 Acute and chronic respiratory failure with hypoxia
CPT/HCPCS: 85025

== ENCOUNTER 2020-12-12 20:07 | Inpatient (IN) | payer MEDICARE, MEDICAID, SELFPAY ==
[2020-12-12] VITALS (30 sets, daily range): BP systolic 90–178; BP diastolic 43–138; PULSE 81–109; RESP 15–58; TEMP 36.8–39.3; O2SAT 88–98
--- NOTE | 2020-12-12 20:15 | DI.RAD_ITS ---
Exam(s) XR PORTABLE CHEST AP EXAM: XR PORTABLE CHEST AP CLINICAL HISTORY: sob, hypoxic, febrile, chf. copd TECHNIQUE: 2D digital imaging was performed. COMPARISON: CR XR PORTABLE CHEST AP POST LINE from 03/09/2020 CR XR PORTABLE CHEST AP POST LINE from 03/09/[address] CHEST PE CTA from 06/29/2020 FINDINGS: Exam is extremely limited due to positioning and patient body habitus. Soft tissues overlie the left lung base. The lungs are not well inflated. There is vascular prominence and question of increased interstitial markings bilaterally which could indicate CHF. IMPRESSION: Severely limited exam. Probable CHF. DATA REPOSITORY: RADIATION DOSE DELIVERED:
--- NOTE | 2020-12-12 20:22 | W.ED.GENAD ---
Discharge Plan Disposition Patient Disposition: [facility] INPATIENT Condition: Serious Discharge Details Clinical Impression: Sepsis, HCAP (healthcare-associated pneumonia), Acute respiratory distress Primary Care Provider: Evi Cloud ED Provider: Ruperto Manning Home Meds and New Rx's Prescriptions: No Action pantoprazole 20 mg tablet,delayed release (DR/EC) 20 mg PO BID RF: 0 aspirin 81 mg Tablet,Delayed Release (Dr/Ec) 81 mg PO QAM RF: 0 diltiazem HCl [DILT-XR] 240 mg capsule,ext.rel 24h degradable 240 mg PO QAM RF: 0 folic acid 1 mg Tablet 1 mg PO QAM RF: 0 Spiriva Respimat 2.5 mcg/actuation mist 1 inh INHALATION DAILY RF: 0 tolterodine 4 mg capsule,extended release 24hr 4 mg PO QAM RF: 0 cyanocobalamin (vitamin B-12) [Vitamin B-12] 100 mcg Tablet 1,000 mcg PO QAM RF: 0 budesonide-formoterol [Symbicort] 160-4.5 mcg/actuation HFA aerosol inhaler 2 inh INHALATION BID RF: 0 Eliquis 5 mg tablet 5 mg PO BID RF: 0 albuterol sulfate 90 mcg/actuation HFA aerosol inhaler 2 inh INHALATION Q4H PRNRF: 0 tramadol 50 mg Tablet 50 mg PO QID PRNRF: 0 acetaminophen [Tylenol] 325 mg Tablet 650 mg PO Q4H PRNRF: 0 sodium chloride [Saline Nasal Mist] 0.65 % Aerosol,[place] 2 spray INTRANASAL Q2H PRNRF: 0 epinephrine 0.3 mg/0.3 mL Auto-Injector 0.3 mg IM PRN PRNRF: 0 amiodarone 200 mg tablet 200 mg PO DAILY RF: 0 citalopram 40 mg tablet 20 mg PO QAM RF: 0 levothyroxine 75 mcg tablet 100 mcg PO QAM RF: 0 metformin [Glucophage] 1,000 mg tablet 750 mg PO TID RF: 0 celecoxib 200 mg capsule 100 mg PO BID RF: 0 furosemide [Lasix] 20 mg tablet 80 mg PO BID RF: 0 ascorbic acid (vitamin C) [Vitamin C] 500 mg Tablet 500 mg PO BID RF: 0 ferrous sulfate 325 mg (65 mg iron) Tablet 325 mg PO BID RF: 0 T Gel Shampoo 1 applic topical .SUNDAY RF: 0 nystatin 100,000 unit/gram Powder 1 applic topical TID Qty: 30 RF: 0 Bio-K plus 50 billion cell Capsule,Delayed Release(Dr/Ec) 1 cap PO DAILY Qty: 60 RF: 0 Medical Decision Making This is a 70-year-old female with a past medical history of COPD, A. fib on Eliquis, CHF, diabetes mellitus, GERD, high cholesterol, morbid obesity, psoriasis, appendectomy, who presents today from the [facility] for shortness of breath, fever, cough. Patient states that for the last 3 days she has had a cough and has had increased difficulty breathing. She does have positional dyspnea, stating she feels much worse when she lies back. She has chronic edema of the lower extremities, as well as chronic leg binders to help with the swelling and is uncertain if she has had increased swelling lately. She developed a fever today. She denies any hemoptysis. She denies any abdominal pain, vomiting, or chest pain. No urinary complaints. Physical exam demonstrates notably concerning lung sounds with crackles rales and rhonchi. Mild pitting edema in the lower extremities however she is wearing her leg wraps. She is febrile. Mildly hypoxic but she is on chronic oxygen. Patient's lactate is elevated at 2.3, PCO2 of 74 but pH is 7.43, she is currently saturating at 95 at 3 L. pH is stable though suggestive of a chronic component. However her work of breathing is notably increased, which I feel secondary to a combination of pneumonia and potential CHF. As the patient is septic, with the elevated lactate and elevated white count and fever we will start broad-spectrum antibiotics with vancomycin, aztreonam, and doxycycline. We will test for Covid. Chest x-ray shows notable infiltrate and edema. We will hold off on large fluid boluses out of concern for CHF component as well. We will get a proBNP for further evaluation. Will monitor closely and reassess. 10:03 PM Patient's laboratory work-up has returned, patient demonstrate white count of 14, notable left shift, electrolytes are stable aside for potassium being slightly low at 3.3, troponin negative, proBNP is normal. Explains an atypical clinical picture with her notable peripheral edema, her positional dyspnea, and her infiltrative versus edematous appearing lungs. Review of echo demonstrates a good ejection fraction last year, perhaps we can gently rehydrate moving forward, that being said she has received 3 antibiotics and no commands which is a fluid volume in itself. Covid test is negative, influenza is negative. Patient will be started on BiPAP for work of breathing, oxygenation remained stable currently. She did have minimal improvement of her breathing with DuoNeb. Discussed the case with hospitalist Dr. Toussaint, he agrees with the assessment and plan. Patient will be admitted for healthcare associated pneumonia, sepsis, and difficulty breathing. I have extensively reviewed the treatment plan with the patient. I have addressed all patient concerns at this time. I have also discussed the plan with the admitting physician and they agree with the current assessment and plan and have agreed to assume responsibility for the patient. All parties demonstrate verbal understanding and agreement with our assessment and plan at this time. The documentation in this chart was dictated using [employer] dictation software. Please excuse any dictation errors. FINDINGS: Lungs: There are bilateral interstitial and airspace opacities. Pleural spaces: No pleural effusion. No pneumothorax. Heart/Mediastinum: The heart and mediastinum are stable in appearance. Diaphragm: There is elevation of the left hemidiaphragm. Bones/joints: Unremarkable. IMPRESSION: Bilateral infiltrates or edema. Thank you for allowing us to participate in the care of your patient. Dictated and Authenticated by: Westley Mejia MD 12/12/2020 9:18 PM Eastern Time ([place] & [place]) HPI General Date/Time Provider Initiated Documentation: 12/12/20 20:20. HPI Narrative: This is a 70-year-old female with a past medical history of COPD, A. fib on Eliquis, CHF, diabetes mellitus, GERD, high cholesterol, morbid obesity, psoriasis, appendectomy, who presents today from the [facility] for shortness of breath, fever, cough. Patient states that for the last 3 days she has had a cough and has had increased difficulty breathing. She does have positional dyspnea, stating she feels much worse when she lies back. She has chronic edema of the lower extremities, as well as chronic leg binders to help with the swelling and is uncertain if she has had increased swelling lately. She developed a fever today. She denies any hemoptysis. She denies any abdominal pain, vomiting, or chest pain. No urinary complaints. Related Data Home Medications Medication Instructions Recorded Confirmed Eliquis 5 mg PO BID 01/14/20 12/02/20 Spiriva Respimat 1 inh INHALATION DAILY 01/14/20 12/02/20 acetaminophen [Tylenol] 650 mg PO Q4H PRN 01/14/20 12/02/20 albuterol sulfate 2 inh INHALATION Q4H PRN 01/14/20 12/02/20 aspirin 81 mg PO QAM 01/14/20 12/02/20 budesonide-formoterol [Symbicort] 2 inh INHALATION BID 01/14/20 12/02/20 cyanocobalamin (vitamin B-12) 1,000 mcg PO QAM 01/14/20 12/02/20 [Vitamin B-12] diltiazem HCl [DILT-XR] 240 mg PO QAM 01/14/20 12/02/20 epinephrine 0.3 mg IM PRN PRN 01/14/20 12/02/20 folic acid 1 mg PO QAM 01/14/20 12/02/20 sodium chloride [Saline Nasal Mist] 2 spray INTRANASAL Q2H PRN 01/14/20 12/02/20 tolterodine 4 mg PO QAM 01/14/20 12/02/20 tramadol 50 mg PO QID PRN 01/14/20 12/02/20 T Gel Shampoo 1 applic TOPICAL .Sunday03/07/20 12/02/20 ascorbic acid (vitamin C) [Vitamin 500 mg PO BID 03/07/20 12/02/20 C] ferrous sulfate 325 mg PO BID 03/07/20 12/02/20 Bio-K plus 1 cap PO DAILY #60 cap 03/15/20 12/02/20 nystatin 1 applic TOPICAL TID #30 g 03/15/20 12/02/20 amiodarone 200 mg tablet 200 mg PO DAILY tab 12/02/20 12/02/20 celecoxib 200 mg capsule 100 mg PO BID cap 12/02/20 12/02/20 citalopram 40 mg tablet 20 mg PO QAM tab 12/02/20 12/02/20 furosemide 20 mg tablet 80 mg PO BID tab 12/02/20 12/02/20 levothyroxine 75 mcg tablet 100 mcg PO QAM tab 12/02/20 12/02/20 metformin 1,000 mg tablet 750 mg PO TID tab 12/02/20 12/02/20 pantoprazole 20 mg tablet,delayed 20 mg PO BID tab 12/02/20 12/02/20 release Previous Rx's Medication Instructions Recorded Bio-K plus 1 cap PO DAILY #60 cap 03/15/20 nystatin 1 applic TOPICAL TID #30 g 03/15/20 Allergies Allergy/AdvReac Type Severity Reaction Status Date / Time bee venom protein (honey bee) Allergy Unknown Verified 12/12/20 20:22 Penicillins Allergy Unknown Verified 12/12/20 20:22 strawberry Allergy Unknown Verified 12/12/20 20:22 Review of Systems All systems reviewed & are unremarkable except as noted in HPI and below PFSH Medical History Acute on chronic respiratory failure with hypoxia and hypercapnia Altered mental status Arthritis Atrial fibrillation Cellulitis bilateral lower extremities Cellulitis CHF (congestive heart failure) Chronic respiratory failure with hypoxia COPD (chronic obstructive pulmonary disease) Diabetes mellitus Family history unobtainable due to patient's condition GERD (gastroesophageal reflux disease) Hypercholesterolemia Mood disorder Muscle weakness (generalized) Obesity Plaque psoriasis Pneumonia Streptococcal bacteremia Toxic metabolic encephalopathy Type 2 diabetes mellitus Surgical History H/O hand surgery right index finger removal of tendon sheath ganglion H/O: hysterectomy History of carpal tunnel surgery of right wrist History of excision of lesion abdominal cyst removed S/P appendectomy Family History Father Heart disease 2 [place], at 62 Mother Heart disease Social History Smoking/Tobacco Use Status: Former Tobacco Use Smoking risk assessment performed?: Yes Alcohol Intake: never Drug use: Never Do you feel safe at home: Yes Do you feel safe in your relationship?: Yes Exam Narrative Exam Narrative: 1.Const: Well-nourished, Well-developed, appearing stated age 2.Eyes: PERRL, no conjunctival injection, and symmetrical lids. 3.ENT: Atraumatic external nose and ears. Moist MM. Neck: Symmetric, trachea midline, No thyromegaly. 4.CVS: +S1/S2, No murmurs or gallops. Peripheral pulses 2+ and equal in all extremities. Brisk capillary refill in all extremities. 5.RESP: Crackles throughout, mild wheezes throughout. Mild rhonchi throughout. 6.GI: Soft, Nontender/Nondistended, No hepatosplenomegaly. No guarding or rebound. 7.MSK: Normocephalic/Atraumatic, Extremities w/o deformity or ttp No cyanosis or clubbing, Normal movement of all extremities, chronic pitting edema in vascular congestion of the lower extremities. Chronic venous stasis is present. +1 pitting edema bilaterally. 8.Skin: Warm, Dry. No rashes or lesions. 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 Sensation grossly intact, no focal neurologic deficits. 10.Psych: (AAO) x3. Appropriate mood and affect
[2020-12-12 20:52] LABS: Source Nasal/Nares
[2020-12-12 20:59] LABS: Abs Immature Grans 0.09 10^3/uL (0.0-0.06); Absolute Basophil Count 0.04 10^3/uL (0.0-0.2); Absolute Eosinophil Count 0.19 10^3/uL (0.0-0.7); Absolute Monocyte Count 0.79 10^3/uL (0.1-0.8); Absolute Neutrophil Count 11.23 10^3/uL (1.2-6.7); Basophils % 0.3; Eosinophils % 1.3; HCT 38.3 % (36.0-46.0); HGB 11.5 g/dL (11.2-15.7); Immature Grans % 0.6; Lymphocytes % 14.4; MCH 31.3 pg (27.0-33.0); MCV 104.1 fL (80-95); Monocytes % 5.5; Neutrophils % 77.9; Nucleated RBC 0 %; Platelet Count 252 10^3/uL (130-400); RBC 3.68 10^6/uL (3.93-5.22); RDW 14.4 % (11.7-14.6); RDW-SD 55.5 fL; WBC 14.41 10^3/uL (4.4-10.8)
[2020-12-12 21:00] LABS: HCO3 (Venous) 49 mmol/L (23-28); O2 Sat (Venous) 86 %; TCO2 (Venous) 44 mmol/L (24-29); pH (Venous) 7.43 (7.31-7.41); pO2 (Venous) 52 mmHg
[2020-12-12] MEDS: ACETAMINOPHEN 1,000 MG/100 ML BTL 400 MG IVPB (21:02)
[2020-12-12 21:04] LABS: pCO2 (Venous) 74 mmHg (41-51)
[2020-12-12 21:05] LABS: BE (Venous) > 15 mmol/L (-2-3)
[2020-12-12 21:06] LABS: Lactate 2.3 mmol/L (0.6-1.4)
[2020-12-12 21:07] LABS: Absolute Lymphocyte Count 2.08 10^3/uL (1.2-3.4)
[2020-12-12] MEDS: DOXYCYCLINE 100 MG in Normal Saline 100 ML IVPB (21:12)
--- NOTE | 2020-12-12 21:19 | DI.VRAD_ITS ---
PROCEDURE INFORMATION: Exam: XR Chest Exam date and time: 12/12/2020 8:24 PM Age: 70 years old Clinical indication: Other: SOB, hypoxic, febrile, chf. Copd TECHNIQUE: Imaging protocol: XR of the chest. Views: 1 view. COMPARISON: CR XR PORTABLE CHEST AP POST LINE 03/09/2020 11:26 AM FINDINGS: Lungs: There are bilateral interstitial and airspace opacities. Pleural spaces: No pleural effusion. No pneumothorax. Heart/Mediastinum: The heart and mediastinum are stable in appearance. Diaphragm: There is elevation of the left hemidiaphragm. Bones/joints: Unremarkable. IMPRESSION: Bilateral infiltrates or edema. Dictated and Authenticated by: Westley Mejia MD. Ordering:KRISTINE Hickey MD
[2020-12-12] MEDS: Albuterol/Ipratropium 3 ML UPD VIAL UPD (21:26)
[2020-12-12 21:27] LABS: ALT 16 U/L (14-59); AST 15 U/L (15-37); Albumin 2.7 g/dL (3.4-5.0); Alkaline Phosphatase 68 U/L (46-116); BUN 16 mg/dL (7-18); Bilirubin, Total 0.3 mg/dL (0.2-1.0); Calcium 8.9 mg/dL (8.5-10.1); Chloride 97 mmol/L (98-107); Glucose 205 mg/dL (74-106); Potassium 3.3 mmol/L (3.5-5.1); Sodium 140 mmol/L (136-145); Total Protein 6.2 g/dL (6.4-8.2)
[2020-12-12 21:31] LABS: Anion Gap -2.00001 mmol/L (3-11); CO2 > 45.0 mmol/L (21.0-32.0)
[2020-12-12 21:38] LABS: NT-proBNP 117 pg/mL (<300)
[2020-12-12 21:39] LABS: Troponin I < 0.05 ng/mL (<0.06)
[2020-12-12 22:01] LABS: COVID-19 PCR Negative (Negative)
[2020-12-12] MEDS: AZTREONAM 2,000 MG in Normal Saline 100 ML 200 MG IVPB (22:07)
--- NOTE | 2020-12-12 22:11 | NUR.NOTE ---
pt insisted on sitting on the commode, she was too big and weak and it took 4 people to get her back on the bed Nursing Note:
--- NOTE | 2020-12-12 22:19 | W.PM.HP.N ---
Date of service: 12/12/20 Time of Service: 22:19 Assessment and Plan Assessment and plan (1) HCAP (healthcare-associated pneumonia): Status: Acute Assessment and plan: HCAP with COPD exacerbation. Will continue triple antibiotics as above, with scheduled duonebs and steroids. Will target O2 sats to low 90s due to evident chronic CO2 retention. History of Present Illness History of Present Illness Chief Complaint: SOB, cough Narrative: 70 female resident of [facility] with multiple problems, including COPD, morbid obesity and chronic hypoventilation on home O2. Here with several days of cough and one day SOB. In ER findings of note for fever (39.3), leukocytosis and CXR shoing bilateral infiltrates. Lactate 2.3. Started on Vanco, Aztreonam and Doxy. States she feels a little better, and as long as she keeps head of bed up. VBG of note for pCO2 74, but pH 7.43, with HCO3 pegged on high end -- indicating hypoventilation as chronic. Review of Systems All systems reviewed & are unremarkable except as noted in HPI and below PFSH Medical History Acute on chronic respiratory failure with hypoxia and hypercapnia Altered mental status Arthritis Atrial fibrillation Cellulitis bilateral lower extremities Cellulitis CHF (congestive heart failure) Chronic respiratory failure with hypoxia COPD (chronic obstructive pulmonary disease) Diabetes mellitus Family history unobtainable due to patient's condition GERD (gastroesophageal reflux disease) Hypercholesterolemia Mood disorder Muscle weakness (generalized) Obesity Plaque psoriasis Pneumonia Streptococcal bacteremia Toxic metabolic encephalopathy Type 2 diabetes mellitus Surgical History H/O hand surgery right index finger removal of tendon sheath ganglion H/O: hysterectomy History of carpal tunnel surgery of right wrist History of excision of lesion abdominal cyst removed S/P appendectomy Family History Father Heart disease 2 HI, at 62 Mother Heart disease Social History Smoking/Tobacco Use Status: Former Tobacco Use Smoking risk assessment performed?: Yes Alcohol Intake: never Drug use: Never Do you feel safe at home: Yes Do you feel safe in your relationship?: Yes Meds Allergies and Home Medications Allergies Allergy/AdvReac Type Severity Reaction Status Date / Time bee venom protein (honey bee) Allergy Unknown Verified 12/12/20 20:22 Penicillins Allergy Unknown Verified 12/12/20 20:22 strawberry Allergy Unknown Verified 12/12/20 20:22 Home Medications Medication Instructions Recorded Confirmed Type Eliquis 5 mg PO BID 01/14/20 12/02/20 History Spiriva Respimat 1 inh INHALATION DAILY 01/14/20 12/02/20 History acetaminophen [Tylenol] 650 mg PO Q4H PRN 01/14/20 12/02/20 History albuterol sulfate 2 inh INHALATION Q4H PRN 01/14/20 12/02/20 History aspirin 81 mg PO QAM 01/14/20 12/02/20 History budesonide-formoterol [Symbicort] 2 inh INHALATION BID 01/14/20 12/02/20 History cyanocobalamin (vitamin B-12) 1,000 mcg PO QAM 01/14/20 12/02/20 History [Vitamin B-12] diltiazem HCl [DILT-XR] 240 mg PO QAM 01/14/20 12/02/20 History epinephrine 0.3 mg IM PRN PRN 01/14/20 12/02/20 History folic acid 1 mg PO QAM 01/14/20 12/02/20 History sodium chloride [Saline Nasal Mist] 2 spray INTRANASAL Q2H PRN 01/14/20 12/02/20 History tolterodine 4 mg PO QAM 01/14/20 12/12/20 History tramadol 50 mg PO QID PRN 01/14/20 12/02/20 History T Gel Shampoo 1 applic TOPICAL .Sunday03/07/20 12/02/20 History ascorbic acid (vitamin C) [Vitamin 500 mg PO BID 03/07/20 12/02/20 History C] ferrous sulfate 325 mg PO BID 03/07/20 12/02/20 History Bio-K plus 1 cap PO DAILY #60 cap 03/15/20 12/02/20 Rx nystatin 1 applic TOPICAL TID #30 g 03/15/20 12/02/20 Rx amiodarone 200 mg tablet 200 mg PO DAILY tab 12/02/20 12/02/20 History celecoxib 200 mg capsule 100 mg PO BID cap 12/02/20 12/02/20 History citalopram 40 mg tablet 20 mg PO QAM tab 12/02/20 12/02/20 History furosemide 20 mg tablet 80 mg PO BID tab 12/02/20 12/12/20 History levothyroxine 75 mcg tablet 100 mcg PO QAM tab 12/02/20 12/02/20 History metformin 1,000 mg tablet 750 mg PO TID tab 12/02/20 12/02/20 History pantoprazole 20 mg tablet,delayed 20 mg PO BID tab 12/02/20 12/02/20 History release tolterodine 4 mg PO DAILY AM 12/12/20 12/12/20 History Exam Narrative Exam Narrative: 127/80, 90, 36.8 (39.3 max), 19, 96% 3L. HEENT atraumatic; neck supple; lungs diffuse wheeze, heart distant/RRR; abdomen soft and NT; extremities LEs wrapped, chronic lymphedema; neuro Ox3, lucid, moves all 4s Results Labs Result diagrams: 12/12/20 20:45 12/12/20 20:45 Labs: Laboratory Results - last 24 hr 12/12/20 12/12/20 12/12/20 20:40 20:45 20:45 WBC RBC Hgb Hct MCV MCH MCHC RDW Plt Count MPV Immature Gran % Neutrophils % Lymphocytes % Monocytes % Eosinophils % Basophils % Nucleated RBC % Absolute Neutrophils Absolute Lymphocytes Absolute Monocytes Absolute Eosinophils Absolute Basophils VBG pH 7.43 H VBG pCO2 74 H* VBG pO2 52 VBG HCO3 49 H VBG Total CO2 44 H VBG O2 Saturation 86 VBG Base Excess > 15 H VBG Lactate Sodium Potassium Chloride Carbon Dioxide Anion Gap BUN Creatinine Estimated GFR/1.73 m2 Glucose Calcium Total Bilirubin AST ALT Alkaline Phosphatase Troponin I < 0.05 NT-Pro-B Natriuret Pep 117 Total Protein Albumin COVID-19 Source Nasal/Nares SARS-CoV-2 (PCR) Negative 12/12/20 12/12/20 12/12/20 20:45 20:45 20:45 WBC 14.41 H RBC 3.68 L Hgb 11.5 Hct 38.3 MCV 104.1 H MCH 31.3 MCHC 30.0 L RDW 14.4 Plt Count 252 MPV 9.0 Immature Gran % 0.6 Neutrophils % 77.9 Lymphocytes % 14.4 Monocytes % 5.5 Eosinophils % 1.3 Basophils % 0.3 Nucleated RBC % 0 Absolute Neutrophils 11.23 H Absolute Lymphocytes 2.08 Absolute Monocytes 0.79 Absolute Eosinophils 0.19 Absolute Basophils 0.04 VBG pH VBG pCO2 VBG pO2 VBG HCO3 VBG Total CO2 VBG O2 Saturation VBG Base Excess VBG Lactate 2.3 H* Sodium 140 Potassium 3.3 L Chloride 97 L Carbon Dioxide > 45.0 H Anion Gap -2.78314 L BUN 16 Creatinine 1.0 Estimated GFR/1.73 m2 54.50 Glucose 205 H Calcium 8.9 Total Bilirubin 0.3 AST 15 ALT 16 Alkaline Phosphatase 68 Troponin I NT-Pro-B Natriuret Pep Total Protein 6.2 L Albumin 2.7 L COVID-19 Source SARS-CoV-2 (PCR) Last Vital Signs Temp 36.8 C 12/12/20 21:48 Pulse 90 12/12/20 21:48 Resp 19 12/12/20 22:09 BP 127/80 12/12/20 21:48 Pulse Ox 96 12/12/20 22:12 PAWSS Pt Consumed Any Amount of Alcohol Within the Last 30 days OR had positive GRAYSON Upon Admission: No
[2020-12-12] MEDS: VANCOMYCIN 2,000 MG in Normal Saline 500 ML 333.3333 MG IVPB (22:42)
[2020-12-12] MEDS: LORazepam 2 MG/ML VIAL 0.5 MG IVP (22:42)
[2020-12-12 23:33] LABS: Bilirubin Negative (Negative); Blood Moderate (Negative); Clarity Sl Cloudy (Clear); Glucose Negative (Negative); Ketones Negative (Negative); Leukocyte Esterase Negative (Negative); Nitrite Negative (Negative); Urobilinogen 0.2 EU/dL (Up TO 0.2); pH 5.5 (5-8)
[2020-12-12 23:40] LABS: Bacteria Few HPF (Negative); Crystals Negative HPF (Negative); Epithelial Cells Few HPF (Negative); Mucus Negative (Negative); WBC 0-2 HPF (0-5)
[2020-12-12 23:41] LABS: C & S Indicated? No; Casts Negative LPF (Negative)
[2020-12-12 23:48] LABS: Troponin I < 0.05 ng/mL (<0.06)
[2020-12-13] VITALS (11 sets, daily range): BP systolic 102–142; BP diastolic 57–74; PULSE 71–91; RESP 1–20; TEMP 36.3–37.3; O2SAT 90–902
--- NOTE | 2020-12-13 | DI.US_ITS ---
Exam(s) US EXTREMITY VENOUS BI EXAM: US EXTREMITY VENOUS BI CLINICAL HISTORY: BLE edema. TECHNIQUE: Bilateral lower extremity venous ultrasound performed using grayscale, color-flow, and sp ectral Doppler analysis. COMPARISON: No exams were available for comparison FINDINGS: Exam is limited by patient body habitus and lower extremity edema. The bilateral common femoral, fem oral and popliteal veins demonstrate normal compressibility, augmentation, and color Doppler. The pos terior tibial veins are patent where visualized. IMPRESSION: Right: Negative for DVT Left: Negative for DVT DATA REPOSITORY:
[2020-12-13] MEDS: methylPREDNISolone SUCC 40 MG VIAL IVP ×3 (01:17→15:35)
[2020-12-13 01:32] LABS: Lactate 1.8 mmol/L (0.6-1.4)
[2020-12-13] MEDS: Normal Saline 500 ML 100 ML IV ×2 (04:30→15:36)
[2020-12-13] MEDS: Albuterol/Ipratropium 3 ML UPD VIAL UPD ×2 (05:52→19:43)
[2020-12-13] MEDS: Levothyroxine 100 MCG TAB PO (05:52)
[2020-12-13] MEDS: Nystatin POWDER 60 GM JAR TP ×3 (08:03→19:43)
[2020-12-13] MEDS: Normal Saline Flush 10 ML SYR (08:04)
[2020-12-13] MEDS: Aspirin E.C. 81 MG TABEC PO (08:05)
[2020-12-13] MEDS: Ferrous Sulfate 325 MG TAB PO ×2 (08:05→19:43)
[2020-12-13] MEDS: Amiodarone 200 MG TAB PO (08:05)
[2020-12-13] MEDS: Apixaban 5 MG TAB PO ×2 (08:05→19:43)
[2020-12-13] MEDS: dilTIAZem CD 120 MG CAPCR 240 MG PO (08:05)
[2020-12-13] MEDS: Furosemide 20 MG TAB 80 MG PO (08:05)
[2020-12-13] MEDS: metFORMIN 500 MG TAB 750 MG PO ×3 (08:05→16:41)
[2020-12-13] MEDS: Pantoprazole 20 MG TABCR PO ×2 (08:05→19:43)
[2020-12-13] MEDS: Folic Acid 1 MG TAB PO (08:05)
[2020-12-13] MEDS: Citalopram 20 MG TAB PO (08:05)
[2020-12-13] MEDS: Insulin Aspart 300 UNITS/3 ML PEN SC ×3 (08:16→16:41)
[2020-12-13] MEDS: Tolterodine 2 MG CAPCR 4 MG PO (09:05)
--- NOTE | 2020-12-13 09:52 | PDOC.CMIN ---
- If Service Date Differs Date of service: 12/13/20 Time of Service: 09:52 Care Management Initial Assess REASON FOR HOSPITALIZATION:: Pneumonia, COPD PAST MEDICAL HISTORY/PAST SURGICAL HISTORY:: Medical History . Acute on chronic respiratory failure with hypoxia and hypercapnia. Altered mental status. Arthritis. Atrial fibrillation. Cellulitis. bilateral lower extremities. Cellulitis. CHF (congestive heart failure). Chronic respiratory failure with hypoxia. COPD (chronic obstructive pulmonary disease). Diabetes mellitus. Family history unobtainable due to patient's condition. GERD (gastroesophageal reflux disease). Hypercholesterolemia. Mood disorder. Muscle weakness (generalized). Obesity. Plaque psoriasis. Pneumonia. Streptococcal bacteremia. Toxic metabolic encephalopathy. Type 2 diabetes mellitus. Surgical History . H/O hand surgery. right index finger removal of tendon sheath ganglion. H/O: hysterectomy. History of carpal tunnel surgery of right wrist. History of excision of lesion. abdominal cyst removed. S/P appendectomy PREVIOUS FUNCTIONAL STATUS/SOCIAL/FAMILY SUPPORTS:: Marlen is a resident of the [facility]. She previously was living in a level three facility in [place], [place], but when it closed she was relocated. She has a daughter, Karlie, who lives locally and is supportive. She needs assistance with her ADL's which is provided by the [facility]. CURRENT FUNCTIONAL STATUS:: spoke with Marlen over the phone due her precautions. She was pleasant and eaily engaged in conversation. Marlen reports that she is feeling better but is exhausted and is hoping to get some rest tonight. Marlen has no concerns at this time and is content watching TV and has a phone at her bedside. ADVANCE DIRECTIVES:: [facility]- Karlie Salazar. [facility] on file, wants CPR Has patient been provided with info about the portal/API?: Yes Did the patient sign up for the portal?: No CODE STATUS:: Full Code ([facility] on File) INSURANCE COVERAGE / FINANCIAL ISSUES:: Medicaid. Medicare CURRENT HOME/COMMUNITY SERVICES/EQUIPMENT:: Goes between a front wheeled walker and wheelchair. She currently lives at the [facility] where she receives assistance with her care. PRIMARY CARE PHYSICIAN:: Evi Cloud PATIENT/FAMILY EDUCATION NEEDS:: Review discharge instructions, limitations and plan to follow up with community providers. ask me three. TRANSPORTATION:: via RCT w/c van PLAN:: Marlen will remain inpatient on triple antibiotic therapy, duonebs and steroids while cultures are pending for pneumonia and COPD exaceration. Anticipate Marlen will discharge back to the [facility] when medically cleared by MD via RCT w/c van. Follow up with discharge plan of care and community providers.
[2020-12-13 10:34] LABS: Abs Immature Grans 0.11 10^3/uL (0.0-0.06); Absolute Basophil Count 0.03 10^3/uL (0.0-0.2); Absolute Lymphocyte Count 0.57 10^3/uL (1.2-3.4); Absolute Monocyte Count 0.06 10^3/uL (0.1-0.8); Absolute Neutrophil Count 10.79 10^3/uL (1.2-6.7); Basophils % 0.3; HCT 41.9 % (36.0-46.0); HGB 12.5 g/dL (11.2-15.7); Lymphocytes % 4.9; MCH 31.1 pg (27.0-33.0); MCHC 29.8 % (32.0-36.0); MCV 104.2 fL (80-95); MPV 8.8 fL (8.0-11.0); Monocytes % 0.5; Neutrophils % 93.3; Nucleated RBC 0 %; Platelet Count 251 10^3/uL (130-400); RBC 4.02 10^6/uL (3.93-5.22); RDW 14.1 % (11.7-14.6); RDW-SD 54.9 fL; WBC 11.56 10^3/uL (4.4-10.8)
[2020-12-13] MEDS: Senna TAB 1 TAB PO ×2 (10:39→19:43)
[2020-12-13] MEDS: Docusate Sodium 100 MG CAP PO ×2 (10:39→19:43)
[2020-12-13 10:41] LABS: Anion Gap 1.5 mmol/L (3-11); BUN 16 mg/dL (7-18); CO2 43.5 mmol/L (21.0-32.0); CREATININE 1.1 mg/dL (0.55-1.02); Calcium 8.8 mg/dL (8.5-10.1); Chloride 95 mmol/L (98-107); Estimated GFR 48.82 (mL/min/1.73m2); Glucose 383 mg/dL (74-106); Magnesium 1.9 mg/dL (1.8-2.4); Potassium 3.6 mmol/L (3.5-5.1); Sodium 140 mmol/L (136-145)
[2020-12-13] MEDS: Normal Saline Flush 10 ML SYR IVP ×5 (10:44→21:11)
[2020-12-13] MEDS: DOXYCYCLINE 100 MG in Normal Saline 100 ML IVPB ×2 (10:45→21:08)
--- NOTE | 2020-12-13 14:41 | PGE_ITS ---
Date of Service Date of service: 12/13/20 Time of Service: 14:42 Assessment and Plan Assessment and plan (1) HCAP (healthcare-associated pneumonia): Status: Acute Assessment and plan: HCAP with COPD exacerbation. Will continue triple antibiotics with vanco, aztreonam and doxycycline day 2 while awaiting cultures., continue scheduled duonebs and steroids. Will target O2 sats to low 90s incentive spirometer (2) Localized swelling of both lower legs: Status: Acute Assessment and plan: likely dependent edema. will give extra lasix today and monitor output] elevate legs ultrasound pending but less likely DVT in setting of full anticoagulation. she is super morbid obese so possible treatment failure on doac should be considered if positive (3) Atrial fibrillation: Status: Chronic Assessment and plan: rate controlled. fully anticoagulated on eliquis continue home medication Qualifiers: Atrial fibrillation type: unspecified Qualified Code(s): I48.91 - Unspecified atrial fibrillation (4) Type 2 diabetes mellitus: Status: Acute Assessment and plan: A1C in October of 2020 was 6.9. continue carb controlled diet sliding scale coverage ac/hs and home medication as previously directed. 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 echo from today pending. will continue furosemide, given afternoon IV dose today. monitor I&O, will place kebede for accurate measurement while diuresing. follow kidney function and electrolytes closely. Qualifiers: Heart failure type: right-sided Heart failure chronicity: acute on chronic Qualified Code(s): I50.813 - Acute on chronic right heart failure (6) Hypothyroidism: Status: Chronic Assessment and plan: TSH dec 01, 2020 was 2.02 will continue home dosing. (7) DVT prophylaxis: Status: Acute Assessment and plan: fully anticoagulated on apixaban (8) Discharge planning issues: Status: Acute Assessment and plan: will discharge back to the [facility] when medically stable. discussed with DR Mayfield Subjective Subjective Patient reports: no new complaints, feels better, tolerating liquids well, tolerating a regular diet, shortness of breath and afebrile Interval history since last seen: still SOB but improving. Exam Const General: cooperative and no acute distress Nutritional Appearance: obese Orientation: alert, awake and oriented x3 HENMT Head: normal to inspection, normocephalic and atraumatic Mouth: oral mucosae normal Resp Effort & Inspection: normal respiratory effort Auscultation: diminished lung sounds on the right, rhonchi (coarse scattered throughout) and no wheezes Cardio Rate: regular rate Rhythm: regular rhythm GI Inspection: normal to inspection and obesity Skin General skin exam: no rashes or lesions noted Extrem General: edema (right greater than left. chronic discoloration from venous stasis) Laterality: bilateral Objective Last Vital Signs Temp 36.6 C 12/13/20 08:39 Pulse 71 12/13/20 08:39 Resp 20 12/13/20 08:39 BP 142/58 H 12/13/20 08:39 Pulse Ox 93 12/13/20 08:39 Laboratory Results - last 24 hr 12/12/20 12/12/20 12/12/20 20:40 20:45 20:45 WBC RBC Hgb Hct MCV MCH MCHC RDW Plt Count MPV Immature Gran % Neutrophils % Lymphocytes % Monocytes % Eosinophils % Basophils % Nucleated RBC % Absolute Neutrophils Absolute Lymphocytes Absolute Monocytes Absolute Eosinophils Absolute Basophils VBG pH 7.43 H VBG pCO2 74 H* VBG pO2 52 VBG HCO3 49 H VBG Total CO2 44 H VBG O2 Saturation 86 VBG Base Excess > 15 H VBG Lactate Sodium Potassium Chloride Carbon Dioxide Anion Gap BUN Creatinine Estimated GFR/1.73 m2 Glucose Calcium Magnesium Total Bilirubin AST ALT Alkaline Phosphatase Troponin I < 0.05 NT-Pro-B Natriuret Pep 117 Total Protein Albumin Urine Color Urine Clarity Urine pH Ur Specific [place] Urine Protein Urine Ketones Urine Blood Urine Nitrite Urine Bilirubin Urine Urobilinogen Ur Leukocyte Esterase Urine RBC Urine WBC Ur Epithelial Cells Urine Crystals Urine Bacteria Urine Casts Urine Mucus Ur Culture Indicated? Urine Glucose COVID-19 Source Nasal/Nares SARS-CoV-2 (PCR) Negative 12/12/20 12/12/20 12/12/20 20:45 20:45 20:45 WBC 14.41 H RBC 3.68 L Hgb 11.5 Hct 38.3 MCV 104.1 H MCH 31.3 MCHC 30.0 L RDW 14.4 Plt Count 252 MPV 9.0 Immature Gran % 0.6 Neutrophils % 77.9 Lymphocytes % 14.4 Monocytes % 5.5 Eosinophils % 1.3 Basophils % 0.3 Nucleated RBC % 0 Absolute Neutrophils 11.23 H Absolute Lymphocytes 2.08 Absolute Monocytes 0.79 Absolute Eosinophils 0.19 Absolute Basophils 0.04 VBG pH VBG pCO2 VBG pO2 VBG HCO3 VBG Total CO2 VBG O2 Saturation VBG Base Excess VBG Lactate 2.3 H* Sodium 140 Potassium 3.3 L Chloride 97 L Carbon Dioxide > 45.0 H Anion Gap -2.11537 L BUN 16 Creatinine 1.0 Estimated GFR/1.73 m2 54.50 Glucose 205 H Calcium 8.9 Magnesium Total Bilirubin 0.3 AST 15 ALT 16 Alkaline Phosphatase 68 Troponin I NT-Pro-B Natriuret Pep Total Protein 6.2 L Albumin 2.7 L Urine Color Urine Clarity Urine pH Ur Specific [place] Urine Protein Urine Ketones Urine Blood Urine Nitrite Urine Bilirubin Urine Urobilinogen Ur Leukocyte Esterase Urine RBC Urine WBC Ur Epithelial Cells Urine Crystals Urine Bacteria Urine Casts Urine Mucus Ur Culture Indicated? Urine Glucose COVID-19 Source SARS-CoV-2 (PCR) 12/12/20 12/12/20 12/12/20 23:20 23:20 23:20 WBC RBC Hgb Hct MCV MCH MCHC RDW Plt Count MPV Immature Gran % Neutrophils % Lymphocytes % Monocytes % Eosinophils % Basophils % Nucleated RBC % Absolute Neutrophils Absolute Lymphocytes Absolute Monocytes Absolute Eosinophils Absolute Basophils VBG pH VBG pCO2 VBG pO2 VBG HCO3 VBG Total CO2 VBG O2 Saturation VBG Base Excess VBG Lactate Sodium Potassium Chloride Carbon Dioxide Anion Gap BUN Creatinine Estimated GFR/1.73 m2 Glucose Calcium Magnesium Total Bilirubin AST ALT Alkaline Phosphatase Troponin I Cancelled < 0.05 NT-Pro-B Natriuret Pep Total Protein Albumin Urine Color Yellow Urine Clarity Sl Cloudy Urine pH 5.5 Ur Specific [place] 1.020 Urine Protein Negative Urine Ketones Negative Urine Blood Moderate H Urine Nitrite Negative Urine Bilirubin Negative Urine Urobilinogen 0.2 Ur Leukocyte Esterase Negative Urine RBC 10-20 H Urine WBC 0-2 Ur Epithelial Cells Few Urine Crystals Negative Urine Bacteria Few Urine Casts Negative Urine Mucus Negative Ur Culture Indicated? No Urine Glucose Negative COVID-19 Source SARS-CoV-2 (PCR) 12/13/20 12/13/20 12/13/20 01:25 10:20 10:20 WBC 11.56 H RBC 4.02 Hgb 12.5 Hct 41.9 MCV 104.2 H MCH 31.1 MCHC 29.8 L RDW 14.1 Plt Count 251 MPV 8.8 Immature Gran % 1.0 Neutrophils % 93.3 Lymphocytes % 4.9 Monocytes % 0.5 Eosinophils % 0.0 Basophils % 0.3 Nucleated RBC % 0 Absolute Neutrophils 10.79 H Absolute Lymphocytes 0.57 L Absolute Monocytes 0.06 L Absolute Eosinophils 0.00 Absolute Basophils 0.03 VBG pH VBG pCO2 VBG pO2 VBG HCO3 VBG Total CO2 VBG O2 Saturation VBG Base Excess VBG Lactate 1.8 H Sodium 140 Potassium 3.6 Chloride 95 L Carbon Dioxide 43.5 H Anion Gap 1.5 L BUN 16 Creatinine 1.1 H Estimated GFR/1.73 m2 48.82 Glucose 383 H D Calcium 8.8 Magnesium 1.9 Total Bilirubin AST ALT Alkaline Phosphatase Troponin I NT-Pro-B Natriuret Pep Total Protein Albumin Urine Color Urine Clarity Urine pH Ur Specific [place] Urine Protein Urine Ketones Urine Blood Urine Nitrite Urine Bilirubin Urine Urobilinogen Ur Leukocyte Esterase Urine RBC Urine WBC Ur Epithelial Cells Urine Crystals Urine Bacteria Urine Casts Urine Mucus Ur Culture Indicated? Urine Glucose COVID-19 Source SARS-CoV-2 (PCR) PAWSS Pt Consumed Any Amount of Alcohol Within the Last 30 days OR had positive GRAYSON Upon Admission: No
--- NOTE | 2020-12-13 15:26 | DM INPTCON_ITS ---
Date of service: 12/13/20 Time of Service: 15:26 Diabetes Inpatient Consult DESCRIPTION/ASSESSMENT: 70 year old resident of [facility] admitted with PNA with hx of morbid obesity, CHF, COPD, DM2. Most recent A1C 6.9% indicates well controlled Dm. Following Diabetic/heart healthy diet with excellent intake. No education needed at this time. PLAN: will follow po intake, labs, weight Time Spent in Nutritional Counseling and Treatment: 0
[2020-12-13] MEDS: Furosemide 100 MG/10 ML VIAL IVP (15:35)
[2020-12-13] MEDS: VANCOMYCIN/WATER (PEG) 1.25 GM/250 ML BAG IV (15:36)
[2020-12-14] VITALS (9 sets, daily range): BP systolic 100–131; BP diastolic 36–71; PULSE 84–90; RESP 2–94; TEMP 35.8–36.6; O2SAT 17–98
[2020-12-14] MEDS: methylPREDNISolone SUCC 40 MG VIAL IVP ×2 (00:30→07:49)
[2020-12-14] MEDS: Albuterol/Ipratropium 3 ML UPD VIAL UPD ×4 (00:31→18:52)
[2020-12-14] MEDS: Normal Saline Flush 10 ML SYR IVP ×6 (00:31→19:52)
[2020-12-14] MEDS: VANCOMYCIN/WATER (PEG) 1.25 GM/250 ML BAG IV ×2 (05:25→18:03)
[2020-12-14] MEDS: Levothyroxine 100 MCG TAB PO (06:07)
[2020-12-14 07:17] LABS: Abs Immature Grans 0.09 10^3/uL (0.0-0.06); Absolute Basophil Count 0.03 10^3/uL (0.0-0.2); Absolute Lymphocyte Count 1.31 10^3/uL (1.2-3.4); Absolute Monocyte Count 0.33 10^3/uL (0.1-0.8); Absolute Neutrophil Count 11.25 10^3/uL (1.2-6.7); Basophils % 0.2; HCT 36.8 % (36.0-46.0); HGB 11.2 g/dL (11.2-15.7); Immature Grans % 0.7; Lymphocytes % 10.1; MCH 31.1 pg (27.0-33.0); MCHC 30.4 % (32.0-36.0); MCV 102.2 fL (80-95); MPV 9.3 fL (8.0-11.0); Monocytes % 2.5; Neutrophils % 86.5; Nucleated RBC 0 %; Platelet Count 260 10^3/uL (130-400); RDW 13.9 % (11.7-14.6); RDW-SD 52.7 fL; WBC 13.01 10^3/uL (4.4-10.8)
[2020-12-14 07:33] LABS: Anion Gap -1.7 mmol/L (3-11); BUN 19 mg/dL (7-18); CO2 44.7 mmol/L (21.0-32.0); CREATININE 0.9 mg/dL (0.55-1.02); Chloride 96 mmol/L (98-107); Glucose 416 mg/dL (74-106); Magnesium 1.8 mg/dL (1.8-2.4); Potassium 3.5 mmol/L (3.5-5.1); Sodium 139 mmol/L (136-145)
[2020-12-14] MEDS: Tolterodine 2 MG CAPCR 4 MG PO (07:50)
[2020-12-14] MEDS: Acetaminophen 325 MG TAB 650 MG PO (07:50)
[2020-12-14] MEDS: Ferrous Sulfate 325 MG TAB PO ×2 (07:51→19:51)
[2020-12-14] MEDS: Docusate Sodium 100 MG CAP PO ×2 (07:51→19:51)
[2020-12-14] MEDS: Senna TAB 1 TAB PO ×2 (07:51→19:51)
[2020-12-14] MEDS: Amiodarone 200 MG TAB PO (07:51)
[2020-12-14] MEDS: Folic Acid 1 MG TAB PO (07:51)
[2020-12-14] MEDS: Aspirin E.C. 81 MG TABEC PO (07:51)
[2020-12-14] MEDS: Apixaban 5 MG TAB PO ×2 (07:52→19:51)
[2020-12-14] MEDS: Furosemide 20 MG TAB 80 MG PO ×2 (07:52→16:11)
[2020-12-14] MEDS: dilTIAZem CD 120 MG CAPCR 240 MG PO (07:52)
[2020-12-14] MEDS: metFORMIN 500 MG TAB 750 MG PO (07:54)
[2020-12-14] MEDS: Pantoprazole 20 MG TABCR PO ×2 (08:03→19:51)
[2020-12-14] MEDS: Nystatin POWDER 60 GM JAR TP ×3 (08:04→19:51)
[2020-12-14] MEDS: Citalopram 20 MG TAB PO (08:12)
[2020-12-14] MEDS: Insulin Aspart 300 UNITS/3 ML PEN SC ×3 (08:13→16:55)
[2020-12-14] MEDS: Insulin Aspart 300 UNITS/3 ML PEN 10 UNITS SC ×2 (09:50→12:06)
[2020-12-14] MEDS: DOXYCYCLINE 100 MG in Normal Saline 100 ML IVPB ×2 (10:20→21:19)
[2020-12-14] MEDS: Insulin Glargine 300 UNITS/3 ML PEN 10 UNITS SC ×2 (12:05→21:19)
--- NOTE | 2020-12-14 12:13 | CMPROGNOTE_ITS ---
- If Service Date Differs Date of service: 12/14/20 Time of Service: 12:13 Care Management Progress Note S/O: Marlen was sitting in her chair when CM met with her. She was pleasant and easily engaged in conversation. She feels better overall, but shares that her blood sugars have been consistently high. She is contributing this to the steroids she's on. Her sugars are being closely monitored by nursing. She also reports that she has quite a bit of left leg pain which is currently 4 out of 10 . She shares that she gets tramadol PRN at the [facility] and wondered if she could get it while she's here. RYAN communicated request to nursing. A: 70 year old female admitted to [facility] on 12/13/20 for pneumonia and COPD P:Marlen will remain inpatient on antibiotics, duonebs and steroids. Anticipate Marlen will discharge back to the [facility] when medically cleared by MD via RCT w/c van. Follow up with discharge plan of care and community providers.
--- NOTE | 2020-12-14 12:23 | PGE_ITS ---
Date of Service Date of service: 12/14/20 Time of Service: 12:25 Assessment and Plan Assessment and plan (1) HCAP (healthcare-associated pneumonia): Start date: 12/14/20 Start time: 12:37 Status: Acute Assessment and plan: HCAP with COPD exacerbation. Will continue triple antibiotics with vanco, aztreonam and doxycycline day 3 while awaiting cultures., continue scheduled duonebs and steroids, symbicort, Will target O2 sats to low 90s incentive spirometery (2) Localized swelling of both lower legs: Start time: 12:39 Status: Acute Assessment and plan: likely dependent edema. will give extra lasix today and monitor output] elevate legs ultrasound pending but less likely DVT in setting of full anticoagulation. she is super morbid obese so possible treatment failure on doac should be considered if positive (3) Atrial fibrillation: Start date: 12/14/20 Start time: 12:40 Status: Chronic Assessment and plan: rate controlled. fully anticoagulated on eliquis continue home medication Qualifiers: Atrial fibrillation type: unspecified Qualified Code(s): I48.91 - Unspecified atrial fibrillation (4) Type 2 diabetes mellitus: Start date: 12/14/20 Start time: 12:40 Status: Acute Assessment and plan: A1C in October of 2020 was 6.9. Fingersticks of over 400 given an additional dose of 10 units aspart increase to resistant will also give Lantus 10 units at HS continue carb controlled diet sliding scale coverage ac/hs and home medication as previously directed. Qualifiers: Diabetes mellitus prison insulin use: without prison use Diabetes mellitus complication status: without complication Qualified Code(s): E11.9 - Type 2 diabetes mellitus without complications (5) CHF (congestive heart failure): Start date: 12/14/20 Start time: 12:41 Status: Chronic Assessment and plan: last echo 01/2020 shows EF 60% with normal right ventricular size, function and RVSP of 24, no sign valvular disease, ascending aorta 4 cm. echo from yesterday is still pending read will continue furosemide, given afternoon IV dose today. monitor I&O, will place kebede for accurate measurement while diuresing. Renal function is stable. Qualifiers: Heart failure type: right-sided Heart failure chronicity: acute on chronic Qualified Code(s): I50.813 - Acute on chronic right heart failure (6) Hypothyroidism: Start date: 12/14/20 Start time: 12:46 Status: Chronic Assessment and plan: TSH dec 01, 2020 was 2.02 will continue home dosing. Qualifiers: Hypothyroidism type: unspecified Qualified Code(s): E03.9 - Hypothyroidism, unspecified (7) DVT prophylaxis: Start date: 12/14/20 Start time: 12:46 Status: Acute Assessment and plan: fully anticoagulated on apixaban (8) Discharge planning issues: Start date: 12/14/20 Start time: 12:46 Status: Acute Assessment and plan: will discharge back to the [facility] when medically stable. discussed with DR Mayfield Subjective Subjective Patient reports: shortness of breath Interval history since last seen: Patient feels SOB, having pain to lower extremities, not quite baseline oxygen requirements. Positive MRSA screens, BCNGTD, Sitting up in chair. Fingersticks have been over 400's ordered 10 units insulin in addition to increasing to resistant scale. Also added lantus to PM, will continue to monitor. She is on steroids. Exam Const General: cooperative and no acute distress Nutritional Appearance: obese Orientation: alert, awake and oriented x3 HENMT Head: normal to inspection, normocephalic and atraumatic Mouth: oral mucosae normal Resp Effort & Inspection: able to speak in complete sentences and labored Auscultation: diminished lung sounds on the right, no rhonchi (coarse scattered throughout) and no wheezes Cardio Jugular venous pressure: no JVD Rate: regular rate Rhythm: regular rhythm GI Inspection: normal to inspection and obesity Skin General skin exam: no rashes or lesions noted, erythema (bilateral lower ex tremities) and hypertrophy Extrem General: edema (right greater than left. chronic discoloration from venous stasis) Laterality: bilateral Objective Last Vital Signs Temp 36.6 C 12/14/20 07:13 Pulse 85 12/14/20 07:13 Resp 18 12/14/20 07:13 BP 116/55 L 12/14/20 07:13 Pulse Ox 91 L 12/14/20 08:00 Laboratory Results - last 24 hr 12/14/20 12/14/20 06:45 06:45 WBC 13.01 H RBC 3.60 L Hgb 11.2 Hct 36.8 MCV 102.2 H MCH 31.1 MCHC 30.4 L RDW 13.9 Plt Count 260 MPV 9.3 Immature Gran % 0.7 Neutrophils % 86.5 Lymphocytes % 10.1 Monocytes % 2.5 Eosinophils % 0.0 Basophils % 0.2 Nucleated RBC % 0 Absolute Neutrophils 11.25 H Absolute Lymphocytes 1.31 Absolute Monocytes 0.33 Absolute Eosinophils 0.00 Absolute Basophils 0.03 Sodium 139 Potassium 3.5 Chloride 96 L Carbon Dioxide 44.7 H Anion Gap -1.7 L BUN 19 H Creatinine 0.9 Estimated GFR/1.73 m2 >= 60.00 Glucose 416 H Calcium 9.0 Magnesium 1.8 PAWSS Pt Consumed Any Amount of Alcohol Within the Last 30 days OR had positive GRAYSON Upon Admission: No
[2020-12-14] MEDS: traMADol 50 MG TAB PO (15:18)
[2020-12-14] MEDS: Ascorbic Acid 500 MG TAB PO (19:51)
[2020-12-14] MEDS: Gabapentin 300 MG CAP PO (21:19)
[2020-12-15] VITALS (11 sets, daily range): BP systolic 124–130; BP diastolic 60–79; PULSE 78–90; RESP 2–20; TEMP 36–36.9; O2SAT 90–98
[2020-12-15] MEDS: Albuterol/Ipratropium 3 ML UPD VIAL UPD ×5 (00:28→23:51)
[2020-12-15] MEDS: Levothyroxine 100 MCG TAB PO (05:34)
[2020-12-15] MEDS: Normal Saline Flush 10 ML SYR IVP ×4 (05:35→20:23)
[2020-12-15 07:11] LABS: Absolute Monocyte Count 0.79 10^3/uL (0.1-0.8); Absolute Neutrophil Count 11.07 10^3/uL (1.2-6.7); Basophils % 0.1; HCT 36.2 % (36.0-46.0); HGB 10.8 g/dL (11.2-15.7); Immature Grans % 0.7; Lymphocytes % 12.6; MCH 30.7 pg (27.0-33.0); MCHC 29.8 % (32.0-36.0); MCV 102.8 fL (80-95); MPV 9.3 fL (8.0-11.0); Monocytes % 5.8; Neutrophils % 80.8; Nucleated RBC 0 %; Platelet Count 296 10^3/uL (130-400); RBC 3.52 10^6/uL (3.93-5.22); RDW 14.4 % (11.7-14.6); RDW-SD 54.6 fL
[2020-12-15 07:17] LABS: Absolute Basophil Count 0.01 10^3/uL (0.0-0.2); Absolute Lymphocyte Count 1.73 10^3/uL (1.2-3.4)
[2020-12-15 07:27] LABS: BUN 23 mg/dL (7-18); CREATININE 0.9 mg/dL (0.55-1.02); Calcium 8.7 mg/dL (8.5-10.1); Glucose 308 mg/dL (74-106); Vancomycin, Trough 11.4 ug/mL (10.0-20.0)
[2020-12-15 07:28] LABS: CO2 > 45.0 mmol/L (21.0-32.0); Chloride 99 mmol/L (98-107); Sodium 143 mmol/L (136-145)
[2020-12-15 07:30] LABS: Potassium 2.8 mmol/L (3.5-5.1)
[2020-12-15] MEDS: Potassium Chloride 20 MEQ TABCR 40 MEQ PO ×3 (07:55→20:24)
[2020-12-15] MEDS: Tolterodine 2 MG CAPCR 4 MG PO (08:13)
[2020-12-15] MEDS: Citalopram 20 MG TAB PO (08:14)
[2020-12-15] MEDS: Amiodarone 200 MG TAB PO (08:14)
[2020-12-15] MEDS: predniSONE 20 MG TAB 40 MG PO (08:14)
[2020-12-15] MEDS: Aspirin E.C. 81 MG TABEC PO (08:14)
[2020-12-15] MEDS: Furosemide 20 MG TAB 80 MG PO ×2 (08:14→15:32)
[2020-12-15] MEDS: Senna TAB 1 TAB PO ×2 (08:14→20:25)
[2020-12-15] MEDS: Docusate Sodium 100 MG CAP PO ×2 (08:14→20:25)
[2020-12-15] MEDS: Potassium Chloride 10 MEQ TABCR PO (08:15)
[2020-12-15] MEDS: Ferrous Sulfate 325 MG TAB PO ×2 (08:15→20:24)
[2020-12-15] MEDS: Nystatin POWDER 60 GM JAR TP ×3 (08:15→20:25)
[2020-12-15] MEDS: Pantoprazole 20 MG TABCR PO ×2 (08:15→20:25)
[2020-12-15] MEDS: Ascorbic Acid 500 MG TAB PO ×2 (08:15→20:25)
[2020-12-15] MEDS: Folic Acid 1 MG TAB PO (08:15)
[2020-12-15] MEDS: Apixaban 5 MG TAB PO ×2 (08:15→20:24)
[2020-12-15] MEDS: dilTIAZem CD 120 MG CAPCR 240 MG PO (08:15)
[2020-12-15] MEDS: Insulin Aspart 300 UNITS/3 ML PEN SC ×3 (08:16→17:03)
[2020-12-15 08:40] LABS: Magnesium 1.8 mg/dL (1.8-2.4)
[2020-12-15] MEDS: Normal Saline 500 ML 100 ML IV (08:51)
[2020-12-15] MEDS: VANCOMYCIN/WATER (PEG) 1.25 GM/250 ML BAG IV ×2 (08:52→18:28)
--- NOTE | 2020-12-15 10:02 | CMPROGNOTE_ITS ---
- If Service Date Differs Date of service: 12/15/20 Time of Service: 10:02 Care Management Progress Note S/O: Marlen was sitting in a reclined chair when CM met with her. She was pleasant and easily engaged in conversation. She shares that she is feeling better and slept good for the most part last night, despite getting woken up periodically so the nurse could get her vitals. CM notes some hematuria in her catheter bag and reported the finding with nursing. Marlen reports no needs at this time and has a phone within reach. A: 70 year old female admitted to [facility] on 12/13/20 for pneumonia and COPD P: Marlen will remain inpatient on antibiotics, duonebs and steroids. Anticipate Marlen will discharge back to the [facility] when medically cleared by MD via RCT w/c van. Follow up with discharge plan of care and community providers.
[2020-12-15] MEDS: DOXYCYCLINE 100 MG in Normal Saline 100 ML IVPB ×2 (10:54→21:58)
--- NOTE | 2020-12-15 14:09 | PGE_ITS ---
Date of Service Date of service: 12/15/20 Time of Service: 14:09 Assessment and Plan Assessment and plan (1) Hypokalemia: Status: Acute Assessment and plan: potassium 2.8, d/t diuresis. will replete and follow. magnesium level checked and normal 1.8 (2) HCAP (healthcare-associated pneumonia): Status: Acute Assessment and plan: HCAP with COPD exacerbation. Will continue triple antibiotics with vanco, aztreonam and doxycycline day 4 cultures negative, continue scheduled duonebs and steroids, symbicort, Will target O2 sats to low 90s incentive spirometery (3) Localized swelling of both lower legs: Status: Acute Assessment and plan: likely dependent edema. will give extra lasix today and monitor output] elevate legs ultrasound pending but less likely DVT in setting of full anticoagulation. she is super morbid obese so possible treatment failure on doac should be considered if positive (4) Atrial fibrillation: Status: Chronic Assessment and plan: rate controlled. fully anticoagulated on eliquis continue home medication Qualifiers: Atrial fibrillation type: unspecified Qualified Code(s): I48.91 - Unspecified atrial fibrillation (5) Type 2 diabetes mellitus: Status: Acute Assessment and plan: A1C in October of 2020 was 6.9. Fingersticks continue to remain elevated which is anticipated while on steroids and active infection, continue resistant scale and increase HS Lantus to 20 units continue carb controlled diet Qualifiers: Diabetes mellitus [facility] insulin use: without meterman use Diabetes mellitus complication status: without complication Qualified Code(s): E11.9 - Type 2 diabetes mellitus without complications (6) CHF (congestive heart failure): Status: Chronic Assessment and plan: last echo 01/2020 shows EF 60% with normal right ventricular size, function and RVSP of 24, no sign valvular disease, ascending aorta 4 cm. echo from yesterday is still pending read will continue furosemide, given afternoon IV dose today. monitor I&O, will place kebede for accurate measurement while diuresing. Renal function is stable. Qualifiers: Heart failure type: right-sided Heart failure chronicity: acute on chronic Qualified Code(s): I50.813 - Acute on chronic right heart failure (7) Hypothyroidism: Status: Chronic Assessment and plan: TSH dec 01, 2020 was 2.02 will continue home dosing. Qualifiers: Hypothyroidism type: unspecified Qualified Code(s): E03.9 - Hypo thyroidism, unspecified (8) DVT prophylaxis: Status: Acute Assessment and plan: fully anticoagulated on apixaban (9) Discharge planning issues: Status: Acute Assessment and plan: will [facility] when medically stable. discussed with DR Mayfield Subjective Subjective Patient reports: no new complaints, feels better, tolerating liquids well, tolerating a regular diet, flatus, no bowel movement, shortness of breath and afebrile Exam Const General: cooperative and no acute distress Nutritional Appearance: obese Orientation: alert, awake and oriented x3 HENMT Head: normal to inspection, normocephalic and atraumatic Mouth: oral mucosae normal Resp Effort & Inspection: normal respiratory effort Auscultation: diminished lung sounds on the right, rhonchi (coarse scattered throughout) and no wheezes Cardio Rate: regular rate Rhythm: regular rhythm GI Inspection: normal to inspection and obesity Skin General skin exam: no rashes or lesions noted Extrem General: edema (right greater than left. chronic discoloration from venous stasis) Laterality: bilateral Objective Last Vital Signs Temp 36 C L 12/15/20 05:44 Pulse 88 12/15/20 13:56 Resp 18 12/15/20 13:56 BP 130/73 12/15/20 05:44 Pulse Ox 98 12/15/20 13:56 Laboratory Results - last 24 hr 12/15/20 12/15/20 12/15/20 06:45 06:45 06:45 WBC 13.70 H RBC 3.52 L Hgb 10.8 L Hct 36.2 MCV 102.8 H MCH 30.7 MCHC 29.8 L RDW 14.4 Plt Count 296 MPV 9.3 Immature Gran % 0.7 Neutrophils % 80.8 Lymphocytes % 12.6 Monocytes % 5.8 Eosinophils % 0.0 Basophils % 0.1 Nucleated RBC % 0 Absolute Neutrophils 11.07 H Absolute Lymphocytes 1.73 Absolute Monocytes 0.79 Absolute Eosinophils 0.00 Absolute Basophils 0.01 Sodium 143 Potassium 2.8 L* Chloride 99 Carbon Dioxide > 45.0 H Anion Gap BUN 23 H Creatinine 0.9 Estimated GFR/1.73 m2 >= 60.00 Glucose 308 H D Calcium 8.7 Magnesium 1.8 Vancomycin Trough 11.4 PAWSS Pt Consumed Any Amount of Alcohol Within the Last 30 days OR had positive GRAYSON Upon Admission: No
--- NOTE | 2020-12-15 15:22 | DM INPTCON_ITS ---
Date of service: 12/15/20 Time of Service: 15:22 Diabetes Inpatient Consult DESCRIPTION/ASSESSMENT: Assessment: Received diabetic nutrition education consult on Marlen, recently admitted for acute respiratory distress. DMII, CHF, hypothyroid also pertinent conditions in her medical Hx. Excellent po intake despite limited dentition (no bottom teeth or dentures). After adjusting bodyweight for morbid obesity (82.5Kg), needs estimated to be 1736 kcals (REE X1.3 PAL for sedentary/ambulatory), 92-99 protein (1.12-1.2 g/Kg), and 1736mL fluid (1 mL/kg). Marlen relates that she has most her meals made at the [facility]. Diagnosis: Current BMI congruent with morbid obesity. At risk for inadequate nutrition intake and low fiber intake secondary to chewing limitations as evidenced by missing dentition. Intervention: Although Marlen has most of her meals and snacks prepared for her under nutrition staff supervision we reviewed CHO exchanges for her needs (11 servings of starches, fruits, and dairy per day) so she can compare with her actual intake and make modifications as needed. Monitoring /evaluation: Will continue to be available for nutrition education support while admitted. Monitor PO intake, weight changes and significant nutrition-related labs. Time Spent in Nutritional Counseling and Treatment: 20
[2020-12-15] MEDS: traMADol 50 MG TAB PO (19:02)
[2020-12-15] MEDS: Gabapentin 300 MG CAP PO (21:56)
[2020-12-15] MEDS: Insulin Glargine 300 UNITS/3 ML PEN 20 UNITS SC (21:59)
[2020-12-16] MEDS: Normal Saline Flush 10 ML SYR IVP (03:29)
[2020-12-16] MEDS: VANCOMYCIN/WATER (PEG) 1.25 GM/250 ML BAG IV (04:32)
[2020-12-16] MEDS: Levothyroxine 100 MCG TAB PO (06:15)
[2020-12-16] MEDS: Albuterol/Ipratropium 3 ML UPD VIAL UPD ×2 (06:15→12:33)
[2020-12-16 07:31] LABS: Abs Immature Grans 0.18 10^3/uL (0.0-0.06); Absolute Eosinophil Count 0.09 10^3/uL (0.0-0.7); Absolute Lymphocyte Count 2.81 10^3/uL (1.2-3.4); Absolute Monocyte Count 0.96 10^3/uL (0.1-0.8); Basophils % 0.3; Eosinophils % 0.8; HCT 38.5 % (36.0-46.0); HGB 11.2 g/dL (11.2-15.7); Immature Grans % 1.5; Lymphocytes % 23.9; MCH 30.6 pg (27.0-33.0); MCHC 29.1 % (32.0-36.0); MCV 105.2 fL (80-95); MPV 8.8 fL (8.0-11.0); Monocytes % 8.2; Neutrophils % 65.3; Nucleated RBC 0 %; Platelet Count 305 10^3/uL (130-400); RBC 3.66 10^6/uL (3.93-5.22); RDW 14.4 % (11.7-14.6); RDW-SD 56.5 fL; WBC 11.75 10^3/uL (4.4-10.8)
[2020-12-16 07:37] LABS: Absolute Basophil Count 0.04 10^3/uL (0.0-0.2); Absolute Neutrophil Count 7.67 10^3/uL (1.2-6.7)
[2020-12-16 07:42] LABS: CO2 > 45.0 mmol/L (21.0-32.0)
[2020-12-16 07:44] LABS: BUN 24 mg/dL (7-18); CREATININE 0.9 mg/dL (0.55-1.02); Glucose 206 mg/dL (74-106); Potassium 3.3 mmol/L (3.5-5.1); Sodium 143 mmol/L (136-145)
[2020-12-16 07:45] LABS: Chloride 100 mmol/L (98-107); Magnesium 1.9 mg/dL (1.8-2.4)
[2020-12-16 07:49] VITALS: BP 106/68; PULSE 80; RESP 20; TEMP 36.6; O2SAT 94
[2020-12-16 07:57] LABS: Diff Comment RBC Morph Reviewed; Macrocytosis 1+
[2020-12-16] MEDS: Folic Acid 1 MG TAB PO (09:31)
[2020-12-16] MEDS: Senna TAB 1 TAB PO (09:31)
[2020-12-16] MEDS: Docusate Sodium 100 MG CAP PO (09:31)
[2020-12-16] MEDS: Tolterodine 2 MG CAPCR 4 MG PO (09:31)
[2020-12-16] MEDS: Ferrous Sulfate 325 MG TAB PO (09:31)
[2020-12-16] MEDS: Pantoprazole 20 MG TABCR PO (09:31)
[2020-12-16] MEDS: Aspirin E.C. 81 MG TABEC PO (09:31)
[2020-12-16] MEDS: predniSONE 20 MG TAB 40 MG PO (09:32)
[2020-12-16] MEDS: Citalopram 20 MG TAB PO (09:33)
[2020-12-16] MEDS: Amiodarone 200 MG TAB PO (09:33)
[2020-12-16] MEDS: Apixaban 5 MG TAB PO (09:33)
[2020-12-16] MEDS: Furosemide 20 MG TAB 80 MG PO (09:39)
[2020-12-16] MEDS: Nystatin POWDER 60 GM JAR TP (09:40)
[2020-12-16] MEDS: dilTIAZem CD 120 MG CAPCR 240 MG PO (09:40)
[2020-12-16] MEDS: Insulin Aspart 300 UNITS/3 ML PEN SC ×2 (09:40→12:34)
[2020-12-16] MEDS: Ascorbic Acid 500 MG TAB PO (10:45)
[2020-12-16] MEDS: DOXYCYCLINE 100 MG in Normal Saline 100 ML IVPB (10:45)
--- NOTE | 2020-12-16 11:22 | DSE_ITS ---
Date of service: 12/16/20 Time of Service: 11:22 DS: Diagnosis Discharge Diagnosis (1) Hypokalemia: Status: Acute (2) HCAP (healthcare-associated pneumonia): Status: Acute (3) Localized swelling of both lower legs: Status: Acute (4) Atrial fibrillation: Status: Chronic (5) Type 2 diabetes mellitus: Status: Acute (6) CHF (congestive heart failure): Status: Chronic (7) Hypothyroidism: Status: Chronic Discharge Plan Disposition Patient Disposition: SNF (LEVEL 1) [facility] Condition: Improving Discharge Details Reason For Visit: Pneumonia, COPD Admit Date/Time: 12/12/20 22:30 Admit Provider: Shaka Toussaint Attending Provider: Shaka Toussaint Primary Care Provider: Evi Cloud Hospital Course Hospital Course: This is a 70 female resident of [facility] with complex medical history including not limited to COPD, super morbid obesity and chronic hypoventilation on home O2. she presented to the ED with several days of cough and one day SOB. Work up in ED of note for fever (39.3), leukocytosis and CXR showing bilateral infiltrates. Lactate 2.3. She was started on Vanco, Aztreonam and Doxy. Her covid PCR was negative. She was also given IV lasix and started on steroids. she was admitted to medical/surgical unit and continued to improve with this treatment. She remained stable on her home oxygen delivery of 3 liters/nc. she was eating and drinking well. a kebede catheter was placed for accurate I&O while diuresising. this was discontinued on discharge. also her course complicated with hyperglycemia d/t steroids. Her HS dose of lantus was increased from 10 units to 20 units. she has 3 more days of prednisone to complete her burst. she needs 3 more days of doxycycline to complete 5 days and 3 more days of levaquin to complete a 7 day course. she should check her blood sugars as/hs and may need further adjustment in her basal insulin. Her potassium was 3.3 and she was given 40 meq po prior to discharge. she is being discharged by ground EMS back to the [facility], she could benefit from rehab following her hospitalization. discharge discussed with Dr Mayfield Home Meds and New Rx's Prescriptions: New prednisone 20 mg Tablet 40 mg PO DAILY Qty: 6 RF: 0 doxycycline hyclate 100 mg tablet 100 mg PO BID Qty: 3 RF: 0 levofloxacin 750 mg tablet 750 mg PO DAILY Qty: 3 RF: 0 Continued pantoprazole 20 mg tablet,delayed release (DR/EC) 20 mg PO BID RF: 0 aspirin 81 mg Tablet,Delayed Release (Dr/Ec) 81 mg PO QAM RF: 0 diltiazem HCl [DILT-XR] 240 mg capsule,ext.rel 24h degradable 240 mg PO QAM RF: 0 folic acid 1 mg Tablet 1 mg PO QAM RF: 0 cyanocobalamin (vitamin B-12) [Vitamin B-12] 100 mcg Tablet 1,000 mcg PO QAM RF: 0 budesonide-formoterol [Symbicort] 160-4.5 mcg/actuation HFA aerosol inhaler 2 inh INHALATION BID RF: 0 Eliquis 5 mg tablet 5 mg PO BID RF: 0 albuterol sulfate 90 mcg/actuation HFA aerosol inhaler 2 inh INHALATION .Q4H,PRN PRNRF: 0 tramadol 50 mg Tablet 50 mg PO QID PRNRF: 0 acetaminophen [Tylenol] 325 mg Tablet 650 mg PO Q4H PRNRF: 0 epinephrine 0.3 mg/0.3 mL Auto-Injector 0.3 mg IM PRN PRNRF: 0 amiodarone 200 mg tablet 200 mg PO DAILY RF: 0 citalopram 40 mg tablet 20 mg PO QAM RF: 0 levothyroxine 75 mcg tablet 100 mcg PO QAM RF: 0 metformin [Glucophage] 1,000 mg tablet 750 mg PO BID RF: 0 furosemide [Lasix] 20 mg tablet 80 mg PO BID RF: 0 tolterodine 4 mg capsule,extended release 24hr 4 mg PO DAILY AM RF: 0 potassium chloride 10 mEq tablet extended release 10 meq PO DAILY AM RF: 0 insulin aspart U-100 [Novolog Flexpen U-100 Insulin] 100 unit/mL (3 mL) insu papa pen See Rx Instructions .ROUTE .COMPLEX RF: 0 Spiriva with HandiHaler 18 mcg Capsule, W/Inhalation Device 1 cap INHALATION DAILY RF: 0 ascorbic acid (vitamin C) [Vitamin C] 500 mg Tablet 500 mg PO BID RF: 0 gabapentin 300 mg Capsule 300 mg PO HS RF: 0 Clyman Saline Gel [place],Non-Aerosol 1 spray INTRANASAL DAILY RF: 0 cholecalciferol (vitamin D3) 1,250 mcg (50,000 unit) Capsule 50,000 unit PO .1X/WEEK RF: 0 ferrous sulfate 325 mg (65 mg iron) Tablet 325 mg PO BID RF: 0 T Gel Shampoo 1 applic topical .SUNDAY RF: 0 Changed Lantus Solostar U-100 Insulin 100 unit/mL (3 mL) Insulin Pen 20 unit SUBCUT HS Qty: 0 RF: 0 Discharge Instructions Instructions: COPD (Chronic Obstructive Pulmonary Disease) (DC), Community Acquired Pneumonia (DC) Additional Instructions: continue increased lantus while on steroids. when steroid course complete should readjust as needed. continue to monitor blood sugars before meals and at bedtime and record for primary care provider to review. you need 3 more days of Levaquin and prednisone to complete a 7 day course. you need one more day of doxycycline to complete 5 days. take medication as directed. drink at least 6-8 glasses of water daily to stay well hydrated. Stand Alone Forms: Nursing Discharge Form Referrals: Evi Cloud [Primary Care Provider] - Activity:: Activity as Tolerated Equipment/Supplies:: No Equipment Needed Diet:: Carb Counting Discharge Orders Discharge Orders: Discharge Order (Routine); Ordered 12/16/20 Ordered By: Shalini George DS: Summary Time Spent with Patient providing and/or coordinating discharge services: Greater than 30 minutes Status at Discharge Functional status at discharge: uses cane/walker Overall status at discharge: patient is progressing back to baseline Mental Status: mental status grossly normal Speech and Movement: speech and movement normal Mood: congruent mood Affect: normal affect Exam Const General: cooperative and no acute distress Nutritional Appearance: obese Orientation: alert, awake and oriented x3 HENMT Head: normal to inspection, normocephalic and atraumatic Mouth: oral mucosae normal Resp Effort & Inspection: normal respiratory effort Auscultation: diminished lung sounds on the right, rhonchi (coarse scattered throughout) and no wheezes Cardio Rate: regular rate Rhythm: regular rhythm GI Inspection: normal to inspection and obesity Skin General skin exam: no rashes or lesions noted Extrem General: edema (right greater than left. chronic discoloration from venous stasis) Laterality: bilateral Psych Mental Status: mental status grossly normal Speech and Movement: speech and movement normal Mood: congruent mood Affect: normal affect DS: Data Vitals/I&O Vitals and I&O: Vital Signs Temperature 36.6 C 12/16/20 07:49 Temperature Source Tympanic 12/16/20 07:49 Pulse 80 12/16/20 07:49 Pulse Rhythm Irregular 12/16/20 02:37 Pulse 88 12/12/20 23:31 Respiratory Rate 20 12/16/20 07:49 Respiratory Effort 12/16/20 02:37 Respiratory Depth Normal 12/16/20 02:37 Respiratory Pattern Normal 12/16/20 02:37 Blood Pressure 106/68 12/16/20 07:49 Blood Pressure Mean 60 12/12/20 23:30 Blood Pressure Position Supine 12/12/20 20:18 Pulse Oximetry 94 12/16/20 07:49 Oxygen Delivery Method Nasal Cannula 12/16/20 07:49 Oxygen Flow Rate 3 12/16/20 07:49 Fraction of Inspired Oxygen (FIO2) 30 12/13/20 08:00 Pain Level 0 12/16/20 07:49 Comment 12/13/20 15:30 Intake & Output 12/15/20 12/15/20 12/16/20 11:59 23:59 11:59 Intake Total 1136.667 / 2000.000 863.333 / 2000.000 320 / 320 Output Total 1900 / 6300 4400 / 6300 150 / 150 Balance -763.333 / -4300.000 -3536.667 / -4300.000 170 / 170 Weight 151.6 kg Intake: IV 471.667 / 855.000 383.333 / 855.000 200 / 200 Oral 665 / 1145 480 / 1145 120 / 120 Output: Urine 1900 / 6300 4400 / 6300 150 / 150 Other: Urine Color Fish Goodwell Goodwell Urine Appearance Cloudy Clear Clear Comment RN reported emptying this amount earlier today pT kebede is leaking, RN notified. Stool Size Smear Stool Characteristics Black Data Completed and Pending Labs on day of discharge: Labs from last 24 hours 12/16/20 12/16/20 07:00 07:00 WBC 11.75 H RBC 3.66 L Hgb 11.2 Hct 38.5 MCV 105.2 H MCH 30.6 MCHC 29.1 L RDW 14.4 Plt Count 305 MPV 8.8 Immature Gran % 1.5 Neutrophils % 65.3 Lymphocytes % 23.9 Monocytes % 8.2 Eosinophils % 0.8 Basophils % 0.3 Nucleated RBC % 0 Absolute Neutrophils 7.67 H Absolute Lymphocytes 2.81 Absolute Monocytes 0.96 H Absolute Eosinophils 0.09 Absolute Basophils 0.04 RBC Morphology See Below Macrocytosis 1+ Sodium 143 Potassium 3.3 L Chloride 100 Carbon Dioxide > 45.0 H Anion Gap BUN 24 H Creatinine 0.9 Estimated GFR/1.73 m2 >= 60.00 Glucose 206 H D Calcium 9.0 Magnesium 1.9 Preliminary micro results at discharge 12/12/20 20:40 Blood Culture - Preliminary Blood NO GROWTH 72 HOURS 12/12/20 21:20 Blood Culture - Preliminary Blood NO GROWTH 72 HOURS [facility] Medical History Acute on chronic respiratory failure with hypoxia and hypercapnia Altered mental status Arthritis Atrial fibrillation Cellulitis bilateral lower extremities Cellulitis CHF (congestive heart failure) Chronic respiratory failure with hypoxia COPD (chronic obstructive pulmonary disease) Diabetes mellitus Family history unobtainable due to patient's condition GERD (gastroesophageal reflux disease) Hypercholesterolemia Mood disorder Muscle weakness (generalized) Obesity Plaque psoriasis Pneumonia Streptococcal bacteremia Toxic metabolic encephalopathy Type 2 diabetes mellitus Surgical History H/O hand surgery right index finger removal of tendon sheath ganglion H/O: hysterectomy History of carpal tunnel surgery of right wrist History of excision of lesion abdominal cyst removed S/P appendectomy Family History Father Heart disease 2 [facility], at 62 Mother Heart disease Social History Smoking/Tobacco Use Status: Former Tobacco Use Smoking risk assessment performed?: Yes Alcohol Intake: never Drug use: Never Do you feel safe at home: Yes Do you feel safe in your relationship?: Yes
[2020-12-16] MEDS: Potassium Chloride 20 MEQ TABCR 40 MEQ PO (12:35)
[2020-12-16] MEDS: Bacitracin 1 PACKET TP (13:05)
--- NOTE | 2020-12-16 13:49 | NUR.NOTE ---
Nursing Note: Report was given to the [facility]
--- NOTE | 2020-12-16 17:16 | PDOC.CMDIS ---
- If Service Date Differs Date of service: 12/16/20 Time of Service: 17:16 LACE Index Scoring Tool - Questions: Length of Stay (in days): 4 - 6 Acuity (Admit via E.D.?): Yes Comorbidities: Diabetes w/o Complication, Congestive Heart Failure, Chronic Pulmonary Disease, Mild Liver/Renal Disease E.D. Visits: 5 - Answers: Total Score: 16 Risk of Readmission: High Risk Care Management Discharge Reason for Hospitalization: Pneumonia, COPD Discharge Plan: Marlen will return to the [facility] today, coordinated by CM. She will be transported via [facility]. She will follow up with her PCP and discharge plan of care. She is happy to be going home. Patient/Family Education Needs: Review discharge instructions regarding activity levels and medications, discussion of self care needs including ask me three and goals of care. Services Needed at Discharge: Assisted Facility, Transportation
== END 2020-12-16 13:44 | disposition skilled nursing facility (03) | DRG 190 ==
LOC: ER 22:34 → MS 23:43
PROVIDERS: Internal Medicine; Nurse Practitioner Acute Care; Nurse Practitioner Family; Admitting Provider General Practice; Emergency Provider Student in an Organized Health Care Education/Training Program; PCP Family Medicine; Visit Provider General Practice
DX: J44.0 Chronic obstructive pulmonary disease with (acute) lower respiratory infection (principal); J18.9 Pneumonia, unspecified organism; Z68.43 Body mass index [BMI] 50.0-59.9, adult; E66.2 Morbid (severe) obesity with alveolar hypoventilation; J96.11 Chronic respiratory failure with hypoxia; J96.12 Chronic respiratory failure with hypercapnia; I48.20 Chronic atrial fibrillation, unspecified; J44.1 Chronic obstructive pulmonary disease with (acute) exacerbation; Z99.81 Dependence on supplemental oxygen; I50.9 Heart failure, unspecified; K21.9 Gastro-esophageal reflux disease without esophagitis; E78.00 Pure hypercholesterolemia, unspecified; F39 Unspecified mood [affective] disorder; R53.1 Weakness; L40.0 Psoriasis vulgaris; Z20.822 Contact with and (suspected) exposure to COVID-19; R60.0 Localized edema; Z79.01 Long term (current) use of anticoagulants; I50.813 Acute on chronic right heart failure; E87.6 Hypokalemia; E11.65 Type 2 diabetes mellitus with hyperglycemia; T38.0X5A Adverse effect of glucocorticoids and synthetic analogues, initial encounter; Z79.84 Long term (current) use of oral hypoglycemic drugs
CPT/HCPCS: 36410; 36415; 36416; 80048; 80053; 82805; 82962; 87040; 87081; 87449; 87635; 94640; 96365; 96366; 96367; 96368; 96375; 99285; 71045; 80202; 81003; 81015; 83605; 83735; 83880; 84484; 85025; 87086; 93306; 93970; 94660; 99222; 99232; 99233; 99239; J0131; J1940; J2060; J7512; J7620

== ENCOUNTER 2020-12-22 15:44 | Outpatient (REF) | payer MEDICARE, MEDICAID, SELFPAY ==
[2020-12-22 15:27] LABS: Anion Gap 1.1 mmol/L (3-11); BUN 16 mg/dL (7-18); CO2 43.9 mmol/L (21.0-32.0); Calcium 9.2 mg/dL (8.5-10.1); Chloride 94 mmol/L (98-107); Glucose 316 mg/dL (74-106); Potassium 3.4 mmol/L (3.5-5.1); Sodium 139 mmol/L (136-145)
[2020-12-22 15:55] LABS: Iron 33 ug/dL (50-170); Total Iron Binding Capacity 263 ug/dL (250-450); Transferrin Sat 13 % (15-50)
[2020-12-23 04:59] LABS: Vitamin D 25 Total 22.7 ng/mL (30-100)
== END 2020-12-22 15:45 | disposition home or self-care (01) ==
LOC: LBN 15:44
PROVIDERS: PCP Family Medicine; Visit Provider Nurse Practitioner Gerontology
DX: I48.91 Unspecified atrial fibrillation (principal); J96.22 Acute and chronic respiratory failure with hypercapnia
CPT/HCPCS: 80048; 80151; 82306; 83540; 83550

== ENCOUNTER 2021-01-02 10:33 | Inpatient (IN) | payer MEDICARE, MEDICAID, SELFPAY ==
[2021-01-02] VITALS (48 sets, daily range): BP systolic 100–143; BP diastolic 48–106; PULSE 70–142; RESP 1–30; TEMP 36.5–37.2; O2SAT 70–100
--- NOTE | 2021-01-02 10:30 | ED.GENADUL_ITS ---
Discharge Plan Disposition Patient Disposition: [facility] INPATIENT Condition: Stable Discharge Details Clinical Impression: HCAP (healthcare-associated pneumonia), Acute respiratory distress, Hypoxia Admit Date/Time: 01/02/21 14:05 Admit Provider: Tawnya Mayfield Attending Provider: Tawnya Mayfield Primary Care Provider: Evi Cloud ED Provider: Isabel Davis Medical Decision Making 70yo F w/ a h/o morbid obesity, COPD chronically on 2 L nasal cannula oxygen, GERD, CHF, chronic leg lymphedema presents from the [facility] for increasing shortness of breath for the past 3 weeks. She was discharged from the floor earlier this month where she was admitted for pneumonia and CHF and COPD exacerbation and treated with antibiotics and steroids. Report for EMS was that patient had oxygen saturations mid 80s on her 2 to 3 L nasal cannula oxygen which improved to low 90s after neb treatment in route. Oxygen saturation 90% on 4 L on arrival. She has diminished breath sounds throughout. Chronic lower extremity lymphedema without signs of acute cellulitis. Differential diagnosis includes acute COPD exacerbation, acute CHF exacerbation, pneumonia, etc. Will place an IV, screening labs, DuoNeb, steroids and chest x- ray and reassess. Thank you labs and imaging reviewed. White blood cell count 11. Hemoglobin 10. Potassium 3.4. Bicarb greater than 45. Troponin negative. BNP normal at 236. Chest x-ray notes right-sided multifocal infiltrates which have worsened since the previous chest x-ray. ABG notes a pH of 7.3. PCO2 82. PO2 79. Will give additional duo nebs and place on BiPAP. Patient tolerating BiPAP. She did take off the BiPAP to eat. She remained on 2L nasal cannula with oxygen saturation 88%. Will place back on BiPAP. She does not appear in any acute respiratory distress. Her breath sounds appear improved. Will start broad-spectrum antibiotics to cover for HCAP. Case discussed with hospitalist who accepts patient for admission. Will give vancomycin and cefepime as she has tolerated cephalosporins in the past per pharmacy. Medical Records Medical records reviewed: Yes I reviewed the patient's medical records. Imaging Data Radiologic Study: Radiologist's impression: XR CHEST 2V PA LATERAL CLINICAL HISTORY: shortness of breath, r/o acute disease TECHNIQUE: 2D digital imaging was performed. COMPARISON: CR,XR XR PORTABLE CHEST AP from 12/12/2020 FINDINGS: The exam is limited by patient body habitus and under penetration. Leads overlie the chest. The heart is enlarged. There are right-sided infiltrates greater in the lower lobe. No effusions are present. IMPRESSION: Right-sided multifocal infiltrates. The findings have worsened when compared with the previous exam. Lab Data Lab results reviewed: Yes I reviewed the patient's lab results. Labs: 01/02/21 11:01 Blood Blood Culture - Pending 01/02/21 13:12 Blood Blood Culture - Pending Laboratory Tests Range/Units 01/02/21 01/02/21 01/02/21 10:57 11:01 11:01 WBC (4.4-10.8) 10^3/uL 11.19 H RBC (3.93-5.22) 10^6/uL 3.50 L Hgb (11.2-15.7) g/dL 10.9 L Hct (36.0-46.0) % 37.2 MCV (80-95) fL 106.3 H MCH (27.0-33.0) pg 31.1 MCHC (32.0-36.0) % 29.3 L RDW (11.7-14.6) % 14.3 Plt Count (130-400) 10^3/uL 308 MPV (8.0-11.0) fL 8.8 Immature Gran % 0.8 Neutrophils % 70.0 Lymphocytes % 19.4 Monocytes % 7.2 Eosinophils % 2.3 Basophils % 0.3 Nucleated RBC % % 0 Absolute Neutrophils (1.2-6.7) 10^3/uL 7.83 H Absolute Lymphocytes (1.2-3.4) 10^3/uL 2.17 Absolute Monocytes (0.1-0.8) 10^3/uL 0.81 H Absolute Eosinophils (0.0-0.7) 10^3/uL 0.26 Absolute Basophils (0.0-0.2) 10^3/uL 0.03 ABG Sample Site ABG pH (7.35-7.45) ABG pCO2 (35-45) mmHg ABG pO2 (80-105) mmHg ABG HCO3 (22-26) mmol/L ABG Total CO2 (23-27) mmol/L ABG O2 Saturation (95-98) % ABG Base Excess (-2-3) mmol/L VBG Lactate (0.6-1.4) mmol/L Oxygen Liter Flow L Sodium (136-145) mmol/L 141 Potassium (3.5-5.1) mmol/L 3.4 L Chloride (98-107) mmol/L 96 L Carbon Dioxide (21.0-32.0) mmol/L > 45.0 H Anion Gap (3-11) mmol/L -0.17106 L BUN (7-18) mg/dL 13 Creatinine (0.55-1.02) mg/dL 1.0 Estimated GFR/1.73 m2 (mL/min/1.73m2) 54.50 Glucose (74-106) mg/dL 250 H Calcium (8.5-10.1) mg/dL 8.7 Magnesium (1.8-2.4) mg/dL 1.8 Total Bilirubin (0.2-1.0) mg/dL 0.2 AST (15-37) U/L 12 L ALT (14-59) U/L 15 Alkaline Phosphatase (46-116) U/L 97 Troponin I (<0.06) ng/mL < 0.05 NT-Pro-B Natriuret Pep (<300) pg/mL Total Protein (6.4-8.2) g/dL 6.8 Albumin (3.4-5.0) g/dL 2.5 L Procalcitonin ng/mL Urine Color (Yellow) Yellow Urine Clarity (Clear) Clear Urine pH (5-8) 7.0 Ur Specific [place] (1.005-1.025) 1.020 Urine Protein (Negative) mg/dL Negative Urine Ketones (Negative) mg/dL Negative Urine Blood (Negative) Negative Urine Nitrite (Negative) Negative Urine Bilirubin (Negative) Negative Urine Urobilinogen (Up TO 0.2) EU/dL 0.2 Ur Leukocyte Esterase (Negative) Trace H Urine RBC (0-2) HPF Negative Urine WBC (0-5) HPF 0-2 Ur Epithelial Cells (Negative) HPF Moderate Urine Crystals (Negative) HPF Negative Urine Bacteria (Negative) HPF Rare Urine Casts (Negative) LPF Negative Urine Mucus (Negative) Negative Ur Culture Indicated? No/Sq. Contamination Urine Glucose (Negative) mg/dL Negative COVID-19 Source SARS-CoV-2 (PCR) (Negative) Range/Units 01/02/21 01/02/21 01/02/21 11:01 12:20 12:25 WBC (4.4-10.8) 10^3/uL RBC (3.93-5.22) 10^6/uL Hgb (11.2-15.7) g/dL Hct (36.0-46.0) % MCV (80-95) fL MCH (27.0-33.0) pg MCHC (32.0-36.0) % RDW (11.7-14.6) % Plt Count (130-400) 10^3/uL MPV (8.0-11.0) fL Immature Gran % Neutrophils % Lymphocytes % Monocytes % Eosinophils % Basophils % Nucleated RBC % % Absolute Neutrophils (1.2-6.7) 10^3/uL Absolute Lymphocytes (1.2-3.4) 10^3/uL Absolute Monocytes (0.1-0.8) 10^3/uL Absolute Eosinophils (0.0-0.7) 10^3/uL Absolute Basophils (0.0-0.2) 10^3/uL ABG Sample Site Left Radial ABG pH (7.35-7.45) 7.39 ABG pCO2 (35-45) mmHg 82 H* ABG pO2 (80-105) mmHg 79 L ABG HCO3 (22-26) mmol/L 50 H ABG Total CO2 (23-27) mmol/L 46 H ABG O2 Saturation (95-98) % 95 ABG Base Excess (-2-3) mmol/L > 15 H VBG Lactate (0.6-1.4) mmol/L Oxygen Liter Flow L 3 Sodium (136-145) mmol/L Potassium (3.5-5.1) mmol/L Chloride (98-107) mmol/L Carbon Dioxide (21.0-32.0) mmol/L Anion Gap (3-11) mmol/L BUN (7-18) mg/dL Creatinine (0.55-1.02) mg/dL Estimated GFR/1.73 m2 (mL/min/1.73m2) Glucose (74-106) mg/dL Calcium (8.5-10.1) mg/dL Magnesium (1.8-2.4) mg/dL Total Bilirubin (0.2-1.0) mg/dL AST (15-37) U/L ALT (14-59) U/L Alkaline Phosphatase (46-116) U/L Troponin I (<0.06) ng/mL NT-Pro-B Natriuret Pep (<300) pg/mL 236 Total Protein (6.4-8.2) g/dL Albumin (3.4-5.0) g/dL Procalcitonin ng/mL Urine Color (Yellow) Urine Clarity (Clear) Urine pH (5-8) Ur Specific [place] (1.005-1.025) Urine Protein (Negative) mg/dL Urine Ketones (Negative) mg/dL Urine Blood (Negative) Urine Nitrite (Negative) Urine Bilirubin (Negative) Urine Urobilinogen (Up TO 0.2) EU/dL Ur Leukocyte Esterase (Negative) Urine RBC (0-2) HPF Urine WBC (0-5) HPF Ur Epithelial Cells (Negative) HPF Urine Crystals (Negative) HPF Urine Bacteria (Negative) HPF Urine Casts (Negative) LPF Urine Mucus (Negative) Ur Culture Indicated? Urine Glucose (Negative) mg/dL COVID-19 Source Nasal/Nares SARS-CoV-2 (PCR) (Negative) Negative Range/Units 01/02/21 13:12 WBC (4.4-10.8) 10^3/uL RBC (3.93-5.22) 10^6/uL Hgb (11.2-15.7) g/dL Hct (36.0-46.0) % MCV (80-95) fL MCH (27.0-33.0) pg MCHC (32.0-36.0) % RDW (11.7-14.6) % Plt Count (130-400) 10^3/uL MPV (8.0-11.0) fL Immature Gran % Neutrophils % Lymphocytes % Monocytes % Eosinophils % Basophils % Nucleated RBC % % Absolute Neutrophils (1.2-6.7) 10^3/uL Absolute Lymphocytes (1.2-3.4) 10^3/uL Absolute Monocytes (0.1-0.8) 10^3/uL Absolute Eosinophils (0.0-0.7) 10^3/uL Absolute Basophils (0.0-0.2) 10^3/uL ABG Sample Site ABG pH (7.35-7.45) ABG pCO2 (35-45) mmHg ABG pO2 (80-105) mmHg ABG HCO3 (22-26) mmol/L ABG Total CO2 (23-27) mmol/L ABG O2 Saturation (95-98) % ABG Base Excess (-2-3) mmol/L VBG Lactate (0.6-1.4) mmol/L 2.3 H* Oxygen Liter Flow L Sodium (136-145) mmol/L Potassium (3.5-5.1) mmol/L Chloride (98-107) mmol/L Carbon Dioxide (21.0-32.0) mmol/L Anion Gap (3-11) mmol/L BUN (7-18) mg/dL Creatinine (0.55-1.02) mg/dL Estimated GFR/1.73 m2 (mL/min/1.73m2) Glucose (74-106) mg/dL Calcium (8.5-10.1) mg/dL Magnesium (1.8-2.4) mg/dL Total Bilirubin (0.2-1.0) mg/dL AST (15-37) U/L ALT (14-59) U/L Alkaline Phosphatase (46-116) U/L Troponin I (<0.06) ng/mL NT-Pro-B Natriuret Pep (<300) pg/mL Total Protein (6.4-8.2) g/dL Albumin (3.4-5.0) g/dL Procalcitonin ng/mL < 0.1 Urine Color (Yellow) Urine Clarity (Clear) Urine pH (5-8) Ur Specific [place] (1.005-1.025) Urine Protein (Negative) mg/dL Urine Ketones (Negative) mg/dL Urine Blood (Negative) Urine Nitrite (Negative) Urine Bilirubin (Negative) Urine Urobilinogen (Up TO 0.2) EU/dL Ur Leukocyte Esterase (Negative) Urine RBC (0-2) HPF Urine WBC (0-5) HPF Ur Epithelial Cells (Negative) HPF Urine Crystals (Negative) HPF Urine Bacteria (Negative) HPF Urine Casts (Negative) LPF Urine Mucus (Negative) Ur Culture Indicated? Urine Glucose (Negative) mg/dL COVID-19 Source SARS-CoV-2 (PCR) (Negative) ECG Data Attestation: I personally reviewed and interpreted this ECG (s) as follows: Interpretation: Rate of 98, sinus, incomplete right bundle branch block and left anterior fascicular block. Prolonged QT at 523. No STEMI. HPI General Mode of arrival: EMS . Date/Time Provider Initiated Documentation: 01/02/21 12:05 . Limitations to Documentation: no limitations and physical limitation . Information obtained by: patient, RN/MD and EMS . HPI Narrative: Pt is s 70yo F w/ a h/o morbid obesity, COPD chronically on 2-4 L nasal cannula oxygen, GERD, CHF, chronic leg cellulitis presents from the [facility] for shortness of breath for the past 3 weeks, worse with the past week. She states she has had a dry cough and denies any fever. She has been ambulating with use of a walker and states she becomes more short of breath with exertion. She denies any chest pain, change in appetite, vomiting or diarrhea. Patient was discharged from the floor earlier this month where she was treated for CHF, COPD and pneumonia with antibiotics and steroids. Related Data Home Medications Medication Instructions Recorded Confirmed Eliquis 5 mg PO BID 01/14/20 01/02/21 acetaminophen [Tylenol] 650 mg PO Q4H PRN 01/14/20 01/02/21 albuterol sulfate 2 inh INHALATION .Q4H,PRN PRN 01/14/20 01/02/21 aspirin 81 mg PO QAM 01/14/20 01/02/21 budesonide-formoterol [Symbicort] 2 inh INHALATION BID 01/14/20 01/02/21 cyanocobalamin (vitamin B-12) 1,000 mcg PO QAM 01/14/20 01/02/21 [Vitamin B-12] diltiazem HCl [DILT-XR] 240 mg PO QAM 01/14/20 01/02/21 epinephrine 0.3 mg IM PRN PRN 01/14/20 01/02/21 folic acid 1 mg PO QAM 01/14/20 01/02/21 tramadol 50 mg PO QID PRN 01/14/20 01/02/21 T Gel Shampoo 1 applic TOPICAL .Sunday03/07/20 01/02/21 ferrous sulfate 325 mg PO BID 03/07/20 01/02/21 amiodarone 200 mg tablet 200 mg PO DAILY tab 12/02/20 01/02/21 citalopram 40 mg tablet 20 mg PO QAM tab 12/02/20 01/02/21 furosemide 20 mg tablet 80 mg PO BID tab 12/02/20 01/02/21 metformin 1,000 mg tablet 750 mg PO BID tab 12/02/20 01/02/21 pantoprazole 20 mg tablet,delayed 20 mg PO BID tab 12/02/20 01/02/21 release potassium chloride 10 meq PO DAILY AM 12/12/20 01/02/21 tolterodine 4 mg PO DAILY AM 12/12/20 01/02/21 [place] Saline Gel 1 spray INTRANASAL DAILY 12/14/20 01/02/21 Spiriva with HandiHaler 1 cap INHALATION DAILY 12/14/20 01/02/21 ascorbic acid (vitamin C) [Vitamin 500 mg PO BID 12/14/20 01/02/21 C] cholecalciferol (vitamin D3) 50,000 unit PO .1X/WEEK 12/14/20 01/02/21 gabapentin 300 mg PO HS 12/14/20 01/02/21 Lantus Solostar U-100 Insulin 20 unit SUBCUT HS #0 ml 12/16/20 01/02/21 insulin aspart U-100 1 sliding scale dose SUBCUT 01/02/21 01/02/21 USEASDIRECTD levothyroxine 100 mcg PO DAILY 01/02/21 01/02/21 polyethylene glycol 3350 [Miralax] 17 g PO DAILY 01/02/21 01/02/21 Previous Rx's Medication Instructions Recorded Lantus Solostar U-100 Insulin 20 unit SUBCUT HS #0 ml 12/16/20 Allergies Allergy/AdvReac Type Severity Reaction Status Date / Time bee venom protein (honey bee) Allergy Unknown Verified 01/02/21 14:33 Penicillins Allergy Unknown Verified 01/02/21 14:33 strawberry Allergy Unknown Verified 01/02/21 14:33 General KENDRICK: 2 Review of Systems All systems reviewed & are unremarkable except as noted in HPI and below Constitutional Constitutional: Reports as per HPI, Denies chills and Denies fever(s) Eyes Eyes: Denies blurry vision ENT Ears, Nose, Mouth, and Throat: Denies dizziness, Denies sore throat and Denies throat swelling Cardiovascular Cardiovascular: Denies chest pain and Reports dyspnea Respiratory Respiratory: Reports cough and Reports dyspnea Gastrointestinal Gastrointestinal: Denies abdominal pain, Denies diarrhea and Denies vomiting Genitourinary Genitourinary: Denies hematuria and Denies dysuria Musculoskeletal Musculoskeletal: Denies back pain and Denies numbness Integumentary/Breasts Skin/Breast: Denies lesions and Denies rash Neurologic Neurologic: Denies dizziness, Denies localized weakness and Denies numbness Allergic/Immunologic Allergic/Immunologic: Denies throat swelling [facility] Medical History Acute on chronic respiratory failure with hypoxia and hypercapnia Altered mental status Arthritis Atrial fibrillation Cellulitis bilateral lower extremities Cellulitis CHF (congestive heart failure) Chronic respiratory failure with hypoxia COPD (chronic obstructive pulmonary disease) Diabetes mellitus Family history unobtainable due to patient's condition GERD (gastroesophageal reflux disease) Hypercholesterolemia Mood disorder Muscle weakness (generalized) Obesity Plaque psoriasis Pneumonia Streptococcal bacteremia Toxic metabolic encephalopathy Type 2 diabetes mellitus Surgical History H/O hand surgery right index finger removal of tendon sheath ganglion H/O: hysterectomy History of carpal tunnel surgery of right wrist History of excision of lesion abdominal cyst removed S/P appendectomy Family History Father Heart disease 2 [place], at 62 Mother Heart disease Social History Smoking/Tobacco Use Status: Former Tobacco Use Smoking risk assessment performed?: Yes Alcohol Intake: never Drug use: Never Substance use type: does not use Do you feel safe at home: Yes Do you feel safe in your relationship?: Yes Exam Const General: cooperative and no acute distress Nutritional Appearance: obese morbidly obese Orientation: alert, awake and oriented x3 HENMT Head: normal to inspection Face and sinus: normal facial exam Eyes General: appearance normal, both eyes and all related structures EOM: EOM intact bilaterally Neck Neck: normal visual inspection and No submandibular swelling Lymphatic: no lymphadenopathy noted Chest Chest: normal inspection of the chest and no tenderness Resp Effort & Inspection: normal respiratory effort and able to speak in complete sentences Auscultation: diminished lung sounds bilaterally throughout Cardio Rate: regular rate Rhythm: regular rhythm GI Inspection: normal to inspection and obesity Palpation: soft, not firm, not rigid and nontender Auscultation: hypoactive bowel sounds Back/Spine/Pelvis Thoracic/Lumbar Spine: thoracic and lumbar spine normal to inspection Pelvis: no pain with anterior-posterior compression Skin General skin exam: no rashes or lesions noted Neuro General: patient alert, patient awake and patient oriented x3 Cognition: normal cognition Speech: speech normal Motor: muscle tone normal throughout Sensory Exam: no sensory deficits noted Extrem General: capillary refill normal and no calf tenderness bilaterally Other: Lymphedema with indurated erythematous b/l lower extremities. No obvious signs of acute cellulitis of b/l lower extremities Psych Appearance: grossly normal Mental Status: mental status grossly normal Speech and Movement: speech and movement normal Affect: normal affect
--- NOTE | 2021-01-02 10:30 | RT.EKG_ITS ---
APPROVED REPORT Exam: Resting ECG Reason for Exam: shortness of breath Patient Location: E HR:98 bpm ECG Measurements Heart Rate 98 AXIS KS 59 P 0 QRSd 114 QRS 2 QT 425 T 8 QTc 523 Conclusion Sinus rhythm...normal P axis, V-rate 60- 99 Ventricular premature complex...V complex w/ short R-R interval Probable left atrial enlargement...P >50mS, <-0.10mV V1 Incomplete RBBB and LAFB...axis(240,-40), S>R II III aVF Low voltage, extremity and precordial leads...extremity<0.5mV, precordial<1.0mV Probable anterolateral infarct, old...Q>35mS, abnrm ST-T, V2-V6,I,aVL Prolonged QT interval...QTc >500mS. I have reviewed and interpreted ECG and agree with software generated interpretation. No STEMI.
--- NOTE | 2021-01-02 11:00 | DI.RAD_ITS ---
Exam(s) XR CHEST 2V PA LATERAL EXAM: XR CHEST 2V PA LATERAL CLINICAL HISTORY: shortness of breath, r/o acute disease TECHNIQUE: 2D digital imaging was performed. COMPARISON: CR,XR XR PORTABLE CHEST AP from 12/12/2020 FINDINGS: The exam is limited by patient body habitus and under penetration. Leads overlie the chest. The hea rt is enlarged. There are right-sided infiltrates greater in the lower lobe. No effusions are prese nt. IMPRESSION: Right-sided multifocal infiltrates. The findings have worsened when compared with the previous exam. DATA REPOSITORY: RADIATION DOSE DELIVERED:
[2021-01-02 11:05] LABS: Bilirubin Negative (Negative); Blood Negative (Negative); Clarity Clear (Clear); Glucose Negative (Negative); Ketones Negative (Negative); Leukocyte Esterase Trace (Negative); Nitrite Negative (Negative); Urobilinogen 0.2 EU/dL (Up TO 0.2)
[2021-01-02 11:15] LABS: Abs Immature Grans 0.09 10^3/uL (0.0-0.06); Absolute Basophil Count 0.03 10^3/uL (0.0-0.2); Absolute Eosinophil Count 0.26 10^3/uL (0.0-0.7); Absolute Lymphocyte Count 2.17 10^3/uL (1.2-3.4); Absolute Monocyte Count 0.81 10^3/uL (0.1-0.8); Absolute Neutrophil Count 7.83 10^3/uL (1.2-6.7); Basophils % 0.3; Eosinophils % 2.3; HCT 37.2 % (36.0-46.0); HGB 10.9 g/dL (11.2-15.7); Immature Grans % 0.8; Lymphocytes % 19.4; MCH 31.1 pg (27.0-33.0); MCHC 29.3 % (32.0-36.0); MCV 106.3 fL (80-95); MPV 8.8 fL (8.0-11.0); Monocytes % 7.2; Nucleated RBC 0 %; Platelet Count 308 10^3/uL (130-400); RDW 14.3 % (11.7-14.6); RDW-SD 56.6 fL; WBC 11.19 10^3/uL (4.4-10.8)
[2021-01-02 11:18] LABS: Bacteria Rare HPF (Negative); Casts Negative LPF (Negative); Crystals Negative HPF (Negative); Epithelial Cells Moderate HPF (Negative); Mucus Negative (Negative); RBC Negative HPF (0-2); WBC 0-2 HPF (0-5)
[2021-01-02 11:19] LABS: C & S Indicated? No/Sq. Contamination
[2021-01-02 11:31] LABS: ALT 15 U/L (14-59); AST 12 U/L (15-37); Albumin 2.5 g/dL (3.4-5.0); Alkaline Phosphatase 97 U/L (46-116); Anion Gap -0.00001 mmol/L (3-11); BUN 13 mg/dL (7-18); Bilirubin, Total 0.2 mg/dL (0.2-1.0); CO2 > 45.0 mmol/L (21.0-32.0); Calcium 8.7 mg/dL (8.5-10.1); Chloride 96 mmol/L (98-107); Glucose 250 mg/dL (74-106); Magnesium 1.8 mg/dL (1.8-2.4); Potassium 3.4 mmol/L (3.5-5.1); Sodium 141 mmol/L (136-145); Total Protein 6.8 g/dL (6.4-8.2); Troponin I < 0.05 ng/mL (<0.06)
[2021-01-02 11:37] LABS: NT-proBNP 236 pg/mL (<300)
[2021-01-02] MEDS: Albuterol/Ipratropium 3 ML UPD VIAL UPD ×2 (12:02→18:14)
[2021-01-02] MEDS: methylPREDNISolone SUCC 125 MG VIAL IVP (12:03)
--- NOTE | 2021-01-02 12:16 | DI.VRAD_ITS ---
PROCEDURE INFORMATION: Exam: XR Chest Exam date and time: 01/02/2021 11:15 AM Age: 70 years old Clinical indication: Other: Shortness of breath, R/O acute disease TECHNIQUE: Imaging protocol: XR of the chest. Views: 2 views. COMPARISON: CR XR PORTABLE CHEST AP 12/12/2020 8:32 PM FINDINGS: Tubes, catheters and devices: Overlying EKG wires Lungs: Diffuse opacities in the right hemithorax may represent multifocal pneumonia including COVID-19. Pleural spaces: Unremarkable. No pleural effusion. No pneumothorax. Heart/Mediastinum: Cardiomegaly Bones/joints: Unremarkable. IMPRESSION: Diffuse opacities in the right hemithorax may represent multifocal pneumonia including COVID-19. Dictated and Authenticated by: Shukri Hernandez MD. Ordering:SACHA Hall MD
[2021-01-02 12:21] LABS: HCO3 50 mmol/L (22-26); pH 7.39 (7.35-7.45); pO2 79 mmHg (80-105); sO2 95 % (95-98); tCO2 46 mmol/L (23-27)
[2021-01-02 12:24] LABS: BE > 15 mmol/L (-2-3); FIO2L 3 L; Site Left Radial; pCO2 82 mmHg (35-45)
[2021-01-02 12:36] LABS: Source Nasal/Nares
[2021-01-02] MEDS: Albuterol 2.5 MG/3 ML INH SOLN VIAL 5 MG UPD (12:45)
[2021-01-02 13:21] LABS: Lactate 2.3 mmol/L (0.6-1.4)
--- NOTE | 2021-01-02 13:27 | NUR.NOTE ---
Nursing Note:PT removed herself from CPAP machine to eat dinner. Reports I want to eat my dinner. I have informed her that due to severe shortness of breath this is not recommended. PT aware. Respiratory therapy notified. Pt will be placed back on CPAP after finishing her meal.
[2021-01-02 13:30] LABS: COVID-19 PCR Negative (Negative)
[2021-01-02 13:49] LABS: Procalcitonin < 0.1 ng/mL
[2021-01-02] MEDS: Normal Saline 500 ML IV (14:15)
[2021-01-02] MEDS: VANCOMYCIN/WATER (PEG) 2 GM/400 ML BAG IV (14:15)
--- NOTE | 2021-01-02 14:15 | W.PM.HP.N ---
Date of service: 01/02/21 Time of Service: 15:38 Assessment and Plan Assessment and plan (1) Acute on chronic respiratory failure with hypoxia and hypercapnia: Status: Acute Assessment and plan: Can get off BiPAP soon. Treat with scheduled/prn nebs, symbicort, systemic steroids, antibiotics. Needs pulm follow up as outpatient (2) HCAP (healthcare-associated pneumonia): Status: Acute Assessment and plan: As above. Obtain MRSA nares - if negative, would d/c empiric vancomycin. Continue cefepime. Await blood culture results and obtain sputum cx. Consider swallow eval as findings are R-sided. (3) Acute exacerbation of chronic obstructive pulmonary disease: Status: Acute Assessment and plan: As above (4) Hypokalemia: Status: Acute Assessment and plan: Replete, recheck in am (5) Type 2 diabetes mellitus: Status: Acute Assessment and plan: I anticipate some steroid induced hyperglycemia. Continue outpatient lantus. Add SSI and titrate as BGs dictate. Qualifiers: Diabetes mellitus complication status: without complication Diabetes mellitus manager terminal insulin use: without senior living use Qualified Code(s): E11.9 - Type 2 diabetes mellitus without complications (6) DVT prophylaxis: Status: Acute Assessment and plan: On therapeutic eliquis (for Afib) (7) Discharge planning issues: Status: Acute Assessment and plan: Full code Consult PT. History of Present Illness History of Present Illness Chief Complaint: Shortness of breath Narrative: Ms King is a 70 year old female with PMHx of chronic hypoxic hypercapnic respiratory failure (normally on 2-3 L of O2 by IA) due to COPD, OHS, pulmonary hypertension, Afib on eliquis, IDDM2, HTN, who is a resident of the [facility] and who was discharged from [facility] hospitalist service on 12/16/20 after an admission for HCAP, who was brought to [facility] ED today after about 3 weeks of shortness of breath, worse over the last couple of days, now requiring 4L of O2. Per the ED provider, The patient was saturating in low 80s on her usual 2-3L of O2 at the [facility]. She received nebs x 2 en route to the hospital and on arrival to [facility] was saturating in the 90s on 4L. She did appear mildly dyspneic and was placed on BiPAP with improvement of her sx. Her ABG showed pH of 7.39, pCO2 of 82, pO2 of 79, O2 sat of 95 % on 3L. ABG done 3 hrs later, on BiPAP showed pH of 7.40, pCO2 of 79, pO2 of 81, bicarb of 48, O2 sat of 96% on BIPAP 12/5 and 35% FiO2. Her imaging (CXR) showed worsening right sided multifocal infiltrates. She tested negative for COVID-19. She was initiated on vancomycin/cefepime. Hospitalist admission was requested. Review of Systems Narrative: Denies fevers, productive cough, endorses DESAI. Sleeps in a recliner. Edema at its baseline. Erythema BLEs at its baseline. All systems reviewed & are unremarkable except as noted in HPI and below PFSH Medical History Acute on chronic respiratory failure with hypoxia and hypercapnia Altered mental status Arthritis Atrial fibrillation Cellulitis bilateral lower extremities Cellulitis CHF (congestive heart failure) Chronic respiratory failure with hypoxia COPD (chronic obstructive pulmonary disease) Diabetes mellitus Family history unobtainable due to patient's condition GERD (gastroesophageal reflux disease) Hypercholesterolemia Mood disorder Muscle weakness (generalized) Obesity Plaque psoriasis Pneumonia Streptococcal bacteremia Toxic metabolic encephalopathy Type 2 diabetes mellitus Surgical History H/O hand surgery right index finger removal of tendon sheath ganglion H/O: hysterectomy History of carpal tunnel surgery of right wrist History of excision of lesion abdominal cyst removed S/P appendectomy Family History Father Heart disease 2 MS, at 62 Mother Heart disease Social History Smoking/Tobacco Use Status: Former Tobacco Use Smoking risk assessment performed?: Yes Alcohol Intake: never Drug use: Never Substance use type: does not use Do you feel safe at home: Yes Do you feel safe in your relationship?: Yes Meds Allergies and Home Medications Allergies Allergy/AdvReac Type Severity Reaction Status Date / Time bee venom protein (honey bee) Allergy Unknown Verified 01/02/21 14:33 Penicillins Allergy Unknown Verified 01/02/21 14:33 strawberry Allergy Unknown Verified 01/02/21 14:33 Home Medications Medication Instructions Recorded Confirmed Type Eliquis 5 mg PO BID 01/14/20 01/02/21 History acetaminophen [Tylenol] 650 mg PO Q4H PRN 01/14/20 01/02/21 History albuterol sulfate 2 inh INHALATION .Q4H,PRN PRN 01/14/20 01/02/21 History aspirin 81 mg PO QAM 01/14/20 01/02/21 History budesonide-formoterol [Symbicort] 2 inh INHALATION BID 01/14/20 01/02/21 History cyanocobalamin (vitamin B-12) 1,000 mcg PO QAM 01/14/20 01/02/21 History [Vitamin B-12] diltiazem HCl [DILT-XR] 240 mg PO QAM 01/14/20 01/02/21 History epinephrine 0.3 mg IM PRN PRN 01/14/20 01/02/21 History folic acid 1 mg PO QAM 01/14/20 01/02/21 History tramadol 50 mg PO QID PRN 01/14/20 01/02/21 History T Gel Shampoo 1 applic TOPICAL .Sunday03/07/20 01/02/21 History ferrous sulfate 325 mg PO BID 03/07/20 01/02/21 History amiodarone 200 mg tablet 200 mg PO DAILY tab 12/02/20 01/02/21 History citalopram 40 mg tablet 20 mg PO QAM tab 12/02/20 01/02/21 History furosemide 20 mg tablet 80 mg PO BID tab 12/02/20 01/02/21 History metformin 1,000 mg tablet 750 mg PO BID tab 12/02/20 01/02/21 History pantoprazole 20 mg tablet,delayed 20 mg PO BID tab 12/02/20 01/02/21 History release potassium chloride 10 meq PO DAILY AM 12/12/20 01/02/21 History tolterodine 4 mg PO DAILY AM 12/12/20 01/02/21 History [place] Saline Gel 1 spray INTRANASAL DAILY 12/14/20 01/02/21 History Spiriva with HandiHaler 1 cap INHALATION DAILY 12/14/20 01/02/21 History ascorbic acid (vitamin C) [Vitamin 500 mg PO BID 12/14/20 01/02/21 History C] cholecalciferol (vitamin D3) 50,000 unit PO .1X/WEEK 12/14/20 01/02/21 History gabapentin 300 mg PO HS 12/14/20 01/02/21 History Lantus Solostar U-100 Insulin 20 unit SUBCUT HS #0 ml 12/16/20 01/02/21 Rx insulin aspart U-100 1 sliding scale dose SUBCUT 01/02/21 01/02/21 History USEASDIRECTD levothyroxine 100 mcg PO DAILY 01/02/21 01/02/21 History polyethylene glycol 3350 [Miralax] 17 g PO DAILY 01/02/21 01/02/21 History Exam Narrative Exam Narrative: General: Pleasant obese female who is on BiPAP, A&Ox3, appears comfortable, no obvious dyspnea/tachypnea. No cyanosis. Neurological: A&Ox3, no focal deficits Psychiatric: Appropriate speech pattern/content Skin: chronic venous stasis dermatitis BLEs, mild erythema L posterior thigh HEENT: Atraumatic, normocephalic, EOMI, MMM, unable to examine oropharynx due to patient being on BIPAP, no submandibular or cervical lymphadenopathy, no goiter or JVD Cardiovascular: RRR, quiet ABEL Lungs: Dull respiratory sounds, mild rhonchi B Gastrointestinal: soft, obese, nontender Genitourinary: deferred Extremities: 2+ woody edema BLEs, chronic venous stasis dermatitis, 1+ pedal pulses B Results Imaging Additional studies: CXR: Right-sided multifocal infiltrates. The findings have worsened when compared with the previous exam. EKG: SR, HR 98, poor quality EKG, RBBB/LAFB, no acute ischemia Labs Result diagrams: 01/02/21 11:01 01/02/21 11:01 Labs: Laboratory Results - last 24 hr 01/02/21 01/02/21 01/02/21 10:57 11:01 11:01 WBC 11.19 H RBC 3.50 L Hgb 10.9 L Hct 37.2 MCV 106.3 H MCH 31.1 MCHC 29.3 L RDW 14.3 Plt Count 308 MPV 8.8 Immature Gran % 0.8 Neutrophils % 70.0 Lymphocytes % 19.4 Monocytes % 7.2 Eosinophils % 2.3 Basophils % 0.3 Nucleated RBC % 0 Absolute Neutrophils 7.83 H Absolute Lymphocytes 2.17 Absolute Monocytes 0.81 H Absolute Eosinophils 0.26 Absolute Basophils 0.03 ABG Sample Site ABG pH ABG pCO2 ABG pO2 ABG HCO3 ABG Total CO2 ABG O2 Saturation ABG Base Excess VBG Lactate Oxygen Liter Flow Sodium 141 Potassium 3.4 L Chloride 96 L Carbon Dioxide > 45.0 H Anion Gap -0.48307 L BUN 13 Creatinine 1.0 Estimated GFR/1.73 m2 54.50 Glucose 250 H Calcium 8.7 Magnesium 1.8 Total Bilirubin 0.2 AST 12 L ALT 15 Alkaline Phosphatase 97 Troponin I < 0.05 NT-Pro-B Natriuret Pep Total Protein 6.8 Albumin 2.5 L Procalcitonin Urine Color Yellow Urine Clarity Clear Urine pH 7.0 Ur Specific [place] 1.020 Urine Protein Negative Urine Ketones Negative Urine Blood Negative Urine Nitrite Negative Urine Bilirubin Negative Urine Urobilinogen 0.2 Ur Leukocyte Esterase Trace H Urine RBC Negative Urine WBC 0-2 Ur Epithelial Cells Moderate Urine Crystals Negative Urine Bacteria Rare Urine Casts Negative Urine Mucus Negative Ur Culture Indicated? No/Sq. Contamination Urine Glucose Negative COVID-19 Source SARS-CoV-2 (PCR) 01/02/21 01/02/21 01/02/21 11:01 12:20 12:25 WBC RBC Hgb Hct MCV MCH MCHC RDW Plt Count MPV Immature Gran % Neutrophils % Lymphocytes % Monocytes % Eosinophils % Basophils % Nucleated RBC % Absolute Neutrophils Absolute Lymphocytes Absolute Monocytes Absolute Eosinophils Absolute Basophils ABG Sample Site Left Radial ABG pH 7.39 ABG pCO2 82 H* ABG pO2 79 L ABG HCO3 50 H ABG Total CO2 46 H ABG O2 Saturation 95 ABG Base Excess > 15 H VBG Lactate Oxygen Liter Flow 3 Sodium Potassium Chloride Carbon Dioxide Anion Gap BUN Creatinine Estimated GFR/1.73 m2 Glucose Calcium Magnesium Total Bilirubin AST ALT Alkaline Phosphatase Troponin I NT-Pro-B Natriuret Pep 236 Total Protein Albumin Procalcitonin Urine Color Urine Clarity Urine pH Ur Specific [place] Urine Protein Urine Ketones Urine Blood Urine Nitrite Urine Bilirubin Urine Urobilinogen Ur Leukocyte Esterase Urine RBC Urine WBC Ur Epithelial Cells Urine Crystals Urine Bacteria Urine Casts Urine Mucus Ur Culture Indicated? Urine Glucose COVID-19 Source Nasal/Nares SARS-CoV-2 (PCR) Negative 01/02/21 13:12 WBC RBC Hgb Hct MCV MCH MCHC RDW Plt Count MPV Immature Gran % Neutrophils % Lymphocytes % Monocytes % Eosinophils % Basophils % Nucleated RBC % Absolute Neutrophils Absolute Lymphocytes Absolute Monocytes Absolute Eosinophils Absolute Basophils ABG Sample Site ABG pH ABG pCO2 ABG pO2 ABG HCO3 ABG Total CO2 ABG O2 Saturation ABG Base Excess VBG Lactate 2.3 H* Oxygen Liter Flow Sodium Potassium Chloride Carbon Dioxide Anion Gap BUN Creatinine Estimated GFR/1.73 m2 Glucose Calcium Magnesium Total Bilirubin AST ALT Alkaline Phosphatase Troponin I NT-Pro-B Natriuret Pep Total Protein Albumin Procalcitonin < 0.1 Urine Color Urine Clarity Urine pH Ur Specific [place] Urine Protein Urine Ketones Urine Blood Urine Nitrite Urine Bilirubin Urine Urobilinogen Ur Leukocyte Esterase Urine RBC Urine WBC Ur Epithelial Cells Urine Crystals Urine Bacteria Urine Casts Urine Mucus Ur Culture Indicated? Urine Glucose COVID-19 Source SARS-CoV-2 (PCR) Last Vital Signs Temp 37.2 C 01/02/21 10:40 Pulse 87 01/02/21 13:58 Resp 19 01/02/21 13:58 BP 119/52 L 01/02/21 12:48 Pulse Ox 90 L 01/02/21 13:58
[2021-01-02 15:07] LABS: HCO3 49 mmol/L (22-26); pO2 81 mmHg (80-105); sO2 96 % (95-98); tCO2 45 mmol/L (23-27)
[2021-01-02 15:09] LABS: BE > 15 mmol/L (-2-3); FIO2 35 %; Site Left Radial; pCO2 79 mmHg (35-45)
[2021-01-02 16:12] LABS: Lactate 1.9 mmol/L (0.6-1.4)
[2021-01-02] MEDS: Insulin Aspart 300 UNITS/3 ML PEN SC ×2 (17:13→22:17)
[2021-01-02] MEDS: Potassium Chloride 20 MEQ TABCR 40 MEQ PO (17:20)
[2021-01-02] MEDS: Furosemide 100 MG/10 ML VIAL 80 MG IVP (17:55)
[2021-01-02] MEDS: CEFEPIME 2 GM in Normal Saline 100 ML IVPB (17:56)
[2021-01-02] MEDS: Ferrous Sulfate 325 MG TAB PO (20:28)
[2021-01-02] MEDS: Pantoprazole 20 MG TABCR PO (20:28)
[2021-01-02] MEDS: Budesonide/Formoterol 160/4.5 6 GM 60 PUFF INH IH (20:28)
[2021-01-02] MEDS: Ascorbic Acid 500 MG TAB PO (20:28)
[2021-01-02] MEDS: Apixaban 5 MG TAB PO (20:29)
[2021-01-02] MEDS: Insulin Glargine 300 UNITS/3 ML PEN 20 UNITS SC (22:16)
[2021-01-02] MEDS: Gabapentin 300 MG CAP PO (22:16)
[2021-01-03] VITALS (7 sets, daily range): BP systolic 110–136; BP diastolic 67–76; PULSE 83–90; RESP 4–20; TEMP 36.4–36.8; O2SAT 88–94
[2021-01-03] MEDS: Albuterol/Ipratropium 3 ML UPD VIAL UPD ×5 (00:46→23:53)
[2021-01-03] MEDS: CEFEPIME 2 GM in Normal Saline 100 ML IVPB ×3 (00:47→23:46)
[2021-01-03] MEDS: VANCOMYCIN/WATER (PEG) 1.25 GM/250 ML BAG IV ×2 (05:13→18:09)
[2021-01-03] MEDS: Levothyroxine 100 MCG TAB PO (05:13)
[2021-01-03] MEDS: Normal Saline Flush 10 ML SYR IVP ×4 (05:13→23:46)
[2021-01-03 07:12] LABS: Abs Immature Grans 0.11 10^3/uL (0.0-0.06); Absolute Basophil Count 0.02 10^3/uL (0.0-0.2); Absolute Lymphocyte Count 1.18 10^3/uL (1.2-3.4); Absolute Monocyte Count 0.32 10^3/uL (0.1-0.8); Absolute Neutrophil Count 10.28 10^3/uL (1.2-6.7); Basophils % 0.2; HCT 35.2 % (36.0-46.0); HGB 10.3 g/dL (11.2-15.7); Immature Grans % 0.9; Lymphocytes % 9.9; MCH 30.4 pg (27.0-33.0); MCHC 29.3 % (32.0-36.0); MCV 103.8 fL (80-95); MPV 9.3 fL (8.0-11.0); Monocytes % 2.7; Neutrophils % 86.3; Nucleated RBC 0 %; Platelet Count 319 10^3/uL (130-400); RBC 3.39 10^6/uL (3.93-5.22); RDW 13.9 % (11.7-14.6); RDW-SD 53.1 fL; WBC 11.91 10^3/uL (4.4-10.8)
[2021-01-03 07:24] LABS: Anion Gap 0.2 mmol/L (3-11); BUN 14 mg/dL (7-18); CO2 44.8 mmol/L (21.0-32.0); CREATININE 0.8 mg/dL (0.55-1.02); Calcium 8.9 mg/dL (8.5-10.1); Chloride 95 mmol/L (98-107); Glucose 300 mg/dL (74-106); Magnesium 1.9 mg/dL (1.8-2.4); Potassium 3.7 mmol/L (3.5-5.1); Sodium 140 mmol/L (136-145)
[2021-01-03] MEDS: dilTIAZem CD 120 MG CAPCR 240 MG PO (08:00)
[2021-01-03] MEDS: Amiodarone 200 MG TAB PO (08:00)
[2021-01-03] MEDS: Ferrous Sulfate 325 MG TAB PO ×2 (08:00→21:09)
[2021-01-03] MEDS: Ascorbic Acid 500 MG TAB PO ×2 (08:00→21:09)
[2021-01-03] MEDS: Aspirin E.C. 81 MG TABEC PO (08:00)
[2021-01-03] MEDS: predniSONE 20 MG TAB 40 MG PO (08:00)
[2021-01-03] MEDS: Potassium Chloride 10 MEQ TABCR PO (08:01)
[2021-01-03] MEDS: Apixaban 5 MG TAB PO ×2 (08:01→21:08)
[2021-01-03] MEDS: Citalopram 20 MG TAB PO (08:01)
[2021-01-03] MEDS: Pantoprazole 20 MG TABCR PO ×2 (08:01→21:08)
[2021-01-03] MEDS: Cyanocobalamin 500 MCG TAB 1000 MCG PO (08:01)
[2021-01-03] MEDS: Insulin Aspart 300 UNITS/3 ML PEN SC ×4 (08:01→21:10)
[2021-01-03] MEDS: Folic Acid 1 MG TAB PO (08:01)
[2021-01-03] MEDS: Furosemide 40 MG TAB 80 MG PO ×2 (09:28→16:42)
[2021-01-03] MEDS: Tolterodine 2 MG CAPCR 4 MG PO (09:28)
--- NOTE | 2021-01-03 10:44 | PT.INIE ---
Date of service: 01/03/21 Time of Service: 10:44 PT Notes Visit Reasons: acute on chronic hypoxic hypercapnic resp failure Inpatient Physical Therapy Initial Evaluation Date: 01/03/21 Referring Doctor: Tawnya Mayfield MD PT Orders: PT CONSULT: Limited ability Precautions: Fall. Standard. Activity as tolearted. Patient Profile/Admitting Diagnosis: Patient is a 70-year-old female LTC resident of the [facility] who presented to the ED on 01/02/2021 for increasing shortness of breath and worsening for the past three weeks prior to admission. Patient has new diagnoses of HCV, acute on chronic respiratory failure, COPD exacerbation, hypokalemia and type 2 diabetes mellitus. PMHX: Medical History Arthritis Atrial fibrillation Cellulitis bilateral lower extremities CHF (congestive heart failure) Chronic respiratory failure with hypoxia COPD (chronic obstructive pulmonary disease) Diabetes mellitus Family history unobtainable due to patient's condition GERD (gastroesophageal reflux disease) Hypercholesterolemia Mood disorder Muscle weakness (generalized) Obesity Plaque psoriasis Type 2 diabetes mellitus Surgical History H/O hand surgery right index finger removal of tendon sheath ganglion H/O: hysterectomy History of carpal tunnel surgery of right wrist History of excision of lesion abdominal cyst removed S/P appendectomy Social History/Home Situation: Patient is a resident of the [facility] for over a year now. States that has not fallen for the past year. She typically ambulates short distances with a FWW of about 30 feet with no significant shortness of breath. Equipment Owned/DME: FWW, wheelchair, resident of LT facility Subjective: Reports feeling a lot better today. Agreeable to PT consult. Hopes to go back to the [facility] whenever she is medically cleared. reports that she has compression garments that she uses at the SNF but have not been brought with her here. Reports new weakness in B LE. Objective: General Observation: Resting in chair, with Hoffmann catheter and nasal cannula for 2 LPM supplemental O2. FLORI wraps to B legs. Beginning fibrosis in bilateral legs but with no skin breakdown. Mental Status: Alert and oriented x 4 Pain: None reported Vital Signs: 97% on 4 L of oxygen per minute ROM: Right Upper Extremity: Shoulder Flexion WFL. Shoulder abduction WFL. Elbow flexion WFL. Wrist flexion WFL. Functional opening and closing of hand WFL. Left Upper Extremity: Shoulder Flexion WFL. Shoulder abduction WFL. Elbow flexion WFL. Wrist flexion WFL. Functional opening and closing of hand WFL. Right Lower Extremity: Hip flexion WFL. Hip abduction WFL. Knee flexion WFL. Ankle dorsiflexion WFL. Ankle plantarflexion WFL. Left Lower Extremity: Hip flexion WFL. Hip abduction WFL. Knee flexion WFL. Ankle dorsiflexion WFL. Ankle plantarflexion WFL. Strength: Right Upper Extremity: Shoulder flexors 4-/5. Shoulder abductors 4-/5. Elbow flexors 4-/5. Elbow extensors 4-/5. Coremaker Apprentice strong. Left Upper Extremity: Shoulder flexors 4-/5. Shoulder abductors 4-/5. Elbow flexors 4-/5. Elbow extensors 4-/5. Coremaker Apprentice strong. Right Lower Extremity: Hip flexors 4-/5. Hip abductors 4-/5. Knee flexors 4-/5. Knee extensors 4-/5. Ankle dorsiflexors 4-/5. Ankle plantarflexors 4-/5. Left Lower Extremity: Hip flexors 4-/5. Hip abductors 4-/5. Knee flexors 4-/5. Knee extensors 4-/5. Ankle dorsiflexors 4-/5. Ankle plantarflexors 4-/5. Bed Mobility/Transfers: Sit to stand supervision Stand to sit supervision Bed to chair supervision Chair to bed supervision Gait: 80 feet x 2 using front wheeled walker with full weight bearing requiring only standby assist demonstrating reciprocal gait pattern but with decreased josh and decreased step height on the left. Desaturated to 83% on 2 L and needing increase of oxygen supplementation 3 which are outpatient to saturate back to at least 90%. Balance: Static Sitting: Normal Dynamic Sitting: Normal Static Standing: Fair Dynamic Standing: Fair Special Tests: Mobility Limitations Standardized Measure [facility] AM-PAC 6 clicks Basic Mobility Inpatient Short Form: Raw Score: 23 CMS Score: 11% deficit Informed Consent/Education: Patient was instructed in purpose of PT consult and plan of care. Agreeable to proceed with established PT POC to achieve personal goals. Assessment: Marlen demonstrates functional mobility decline impacted by shortness of breath and decreased activity tolerance. She requires the use of wheeled walker and standby assist of 1. Patient continues to present with clinical signs and symptoms consistent with weakness related to acute medical condition in combination with chronic underlying health conditions, as demonstrated by the following impairment level findings: 1. Decreased UE and LE strength 2. Decreased activity tolerance 3. Decreased safety with transfers 4. High fall risk 5. Swelling in B legs from chronic lymphedema Impairments are continuing to contributing to the following functional limitations: 1. High fall risk 2. decreased safety with transfers 3. Increased risk for B LE skin infection breakdown Patient is assessed as Moderate 15032 moderate complexity based on the following: History: 70-year-old female with functional limitations, impairment level findings, and medical history as listed above Examination: Demonstrable impairment in strength, balance, and mobility level with underlying impairments and functional limitations as documented above Presentation: Evolving Decision Makin moderate complexity Goals: Goals X1 week 1. Supine-Sit independent 2. Sit-Supine independent 3. Sit-Stand independent 4. Stand-Sit independent 5. Bed-Chair independent 6. Chair-Bed independent 7. Independent gait on level surface with use of least restrictive device for at least 300 feet without report of pain nor dyspnea 8. Good static and dynamic standing balance/tolerance Plan of Care/Treatment Plan: 1x/day, 7 days/week x 1 week. Plan of care has been reviewed with the ENERGY EFFICIENCY FINANCE MANAGER providing the service under Physical Therapy direction. Initiate Physical Therapy intervention for strengthening, bed mobility, transfers, gait, stairs, balance training, use of assistive device. DISCHARGE RECOMMENDATIONS: Return to SNF when medically cleared by hospitalist. Continue with functional mobility progression as tolerated. Continue use of bilateral lower extremity compression garments for continued containment of B LE lymphedema. TREATMENT CODE/TIME: 46009 x 25 minutes, 47497 x 17 minutes beginning at 10:44 AM. Thank you for the opportunity to participate in the care of this patient. Pily Myrick PT, DPT, CLT [facility] [place], [place]
[2021-01-03] MEDS: Budesonide/Formoterol 160/4.5 6 GM 60 PUFF INH IH ×2 (10:49→21:09)
--- NOTE | 2021-01-03 13:09 | W.INDIABCONS ---
Date of service: 01/03/21 Time of Service: 13:09 Diabetes Inpatient Consult DESCRIPTION/ASSESSMENT: Excellent PO intake on CHO consistent/low sodium diet. Weight has been stable for the past two months. BMI is 54.1 kg/m2 c/w class 3 obesity. Blood glucose consistently well above target. Prednisone likely increasing blood sugar as well. Getting correction insulin at meal times. Also getting 20 units of Glargine daily. INTERVENTION: Given her weight of 152 kg, she may likely require up to 76 units of which 38 could be the Glargine. Would recommend starting by increasing Glargine to 24 units per day as well as adding sliding scale to cover carbohydrate intake. PLAN: Will continue to follow progress, blood sugars, PO, weight. Time Spent in Nutritional Counseling and Treatment: 0
--- NOTE | 2021-01-03 15:22 | W.PM.PROGNOT ---
Date of Service Date of service: 01/03/21 Time of Service: 15:00 Assessment and Plan Assessment and plan (1) Acute on chronic respiratory failure with hypoxia and hypercapnia: Status: Acute Assessment and plan: Due to PNA, COPD exacerbation, mild component of fluid overload. Doing better than baseline as far as her O2 requirement. Continue scheduled/prn nebs, symbicort, systemic steroids, antibiotics. Needs pulm follow up as outpatient (2) HCAP (healthcare-associated pneumonia): Status: Acute Assessment and plan: As above. MRSA nares +. Continue vancomycin/ cefepime. Sputum C&S not collected. Blood cultures pending. (3) Acute exacerbation of chronic obstructive pulmonary disease: Status: Acute Assessment and plan: As above (4) Hypokalemia: Status: Resolved Assessment and plan: Recheck in am (5) Type 2 diabetes mellitus: Status: Chronic Assessment and plan: With steroid induced hyperglycemia. Titrate basal insulin up. Continue SSI. 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 Subjective Subjective Interval history since last seen: Ms King reports feeling a little bit better. She endorses dizziness when laying down, but not sitting in a chair. Endorses some shortness of breath. Endorses feeling anxious. Denies chest pain, nausea (sometimes does get nausea after eating). MRSA screen positive. Requests a midline. States that when she is having a panic attack, she does not know what she is saying. This made her talking to me today difficult. Exam Narrative Exam Narrative: General: Pleasant obese female on 2L of O2, anxious and has a hard time expressing herself until she calms down, A&Ox3, no obvious dyspnea/tachypnea until she gets anxious. HEENT: EOMI, MMM Cardiovascular: RRR, no m/r/g Lungs: mild rhonchi B upper lung askew Gastrointestinal: soft, obese, nontender Extremities: 2+ woody edema BLEs, chronic venous stasis dermatitis, 1+ pedal pulses B Objective Last Vital Signs Temp 36.8 C 01/03/21 07:45 Pulse 83 01/03/21 07:45 Resp 16 01/03/21 07:45 BP 110/70 01/03/21 07:45 Pulse Ox 90 L 01/03/21 07:45 Laboratory Results - last 24 hr 01/02/21 01/03/21 01/03/21 16:03 06:15 06:15 WBC 11.91 H RBC 3.39 L Hgb 10.3 L Hct 35.2 L MCV 103.8 H MCH 30.4 MCHC 29.3 L RDW 13.9 Plt Count 319 MPV 9.3 Immature Gran % 0.9 Neutrophils % 86.3 Lymphocytes % 9.9 Monocytes % 2.7 Eosinophils % 0.0 Basophils % 0.2 Nucleated RBC % 0 Absolute Neutrophils 10.28 H Absolute Lymphocytes 1.18 L Absolute Monocytes 0.32 Absolute Eosinophils 0.00 Absolute Basophils 0.02 VBG Lactate 1.9 H Sodium 140 Potassium 3.7 Chloride 95 L Carbon Dioxide 44.8 H Anion Gap 0.2 L BUN 14 Creatinine 0.8 Estimated GFR/1.73 m2 >= 60.00 Glucose 300 H Calcium 8.9 Magnesium 1.9
--- NOTE | 2021-01-03 17:17 | INITIAL_ITS ---
- If Service Date Differs Date of service: 01/03/21 Time of Service: 17:17 Care Management Initial Assess REASON FOR HOSPITALIZATION:: acute on chronic hypoxic hypercapnic resp failure PAST MEDICAL HISTORY/PAST SURGICAL HISTORY:: Medical History . Acute on chronic respiratory failure with hypoxia and hypercapnia. Altered mental status. Arthritis. Atrial fibrillation. Cellulitis. bilateral lower extremities. Cellulitis. CHF (congestive heart failure). Chronic respiratory failure with hypoxia. COPD (chronic obstructive pulmonary disease). Diabetes mellitus. Family history unobtainable due to pat ient's condition. GERD (gastroesophageal reflux disease). Hypercholesterolemia. Mood disorder. Muscle weakness (generalized). Obesity. Plaque psoriasis. Pneumonia. Streptococcal bacteremia. Toxic metabolic encephalopathy. Type 2 diabetes mellitus. Surgical History . H/O hand surgery. right index finger removal of tendon sheath ganglion. H/O: hysterectomy. History of carpal tunnel surgery of right wrist. History of excision of lesion. abdominal cyst removed. S/P appendectomy PREVIOUS FUNCTIONAL STATUS/SOCIAL/FAMILY SUPPORTS:: Marlen is a resident of the [facility]. She previously was living in a level three facility in [place], [place], but when it closed she was relocated. She has a daughter, Karlie, who lives locally and is supportive. She needs assistance with her ADL's which is provided by the [facility]. CURRENT FUNCTIONAL STATUS:: Marlen was sitting up in her chair when CM met with her. She reported that she has had a tough day, as she is not feeling well, and the TV in her room is not working. She expected someone to come fix it, but they have not been back today. CM brought her a puzzle book and reading glasses, which she was appreciative of. Per report, she is at her baseline O2 currently and is 90% on 2L. CM will continue to follow. ADVANCE DIRECTIVES:: [facility]- Karlie Salazar. DEB on file, wants CPR Has patient been provided with info about the portal/API?: Yes Did the patient sign up for the portal?: No CODE STATUS:: DNI INSURANCE COVERAGE / FINANCIAL ISSUES:: Medicaid. Medicare CURRENT HOME/COMMUNITY SERVICES/EQUIPMENT:: Marlen goes between using a front wheeled walker and wheelchair. She currently lives at the [facility] where she receives assistance with her care. PRIMARY CARE PHYSICIAN:: Evi Cloud POTENTIAL DISCHARGE NEEDS:: Coordinated return to the [facility]. PATIENT/FAMILY EDUCATION NEEDS:: Review discharge instructions, limitations and plan to follow up with community providers. ask me three. ANTICIPATED BARRIERS TO DISCHARGE:: None identified. TRANSPORTATION:: via [facility] w/c van PLAN:: Marlen will return to the [facility] when medically cleared. She will travel by [facility] w/c van , coordinated by CM. She will follow up with her PCP and discharge p soheila of care. CM will continue to follow.
[2021-01-03 17:48] LABS: Glucose 359 mg/dL (74-106)
[2021-01-03 18:07] LABS: Legionella Ag Detection Urine Negative (Negative)
[2021-01-03] MEDS: Gabapentin 300 MG CAP PO (21:09)
[2021-01-03] MEDS: Insulin Glargine 300 UNITS/3 ML PEN 25 UNITS SC (21:18)
[2021-01-03] MEDS: Docusate Sodium 100 MG CAP 200 MG PO (21:18)
[2021-01-04] VITALS (9 sets, daily range): BP systolic 106–157; BP diastolic 68–79; PULSE 80–90; RESP 8–20; TEMP 36.1–36.9; O2SAT 90–98
[2021-01-04] MEDS: Albuterol/Ipratropium 3 ML UPD VIAL UPD ×2 (05:55→11:59)
[2021-01-04] MEDS: Levothyroxine 100 MCG TAB PO (05:55)
[2021-01-04] MEDS: Budesonide/Formoterol 160/4.5 6 GM 60 PUFF INH IH ×2 (07:54→22:19)
[2021-01-04] MEDS: Polyethylene Glycol 3350 17 GM PACKET PO (08:17)
[2021-01-04] MEDS: Potassium Chloride 10 MEQ TABCR PO (08:18)
[2021-01-04] MEDS: Ferrous Sulfate 325 MG TAB PO ×2 (08:19→22:22)
[2021-01-04] MEDS: Normal Saline Flush 10 ML SYR IVP ×3 (08:19→22:13)
[2021-01-04] MEDS: Insulin Aspart 300 UNITS/3 ML PEN SC ×4 (08:19→22:24)
[2021-01-04] MEDS: Folic Acid 1 MG TAB PO (08:20)
[2021-01-04] MEDS: Citalopram 20 MG TAB PO (08:20)
[2021-01-04] MEDS: Apixaban 5 MG TAB PO ×2 (08:20→22:22)
[2021-01-04] MEDS: predniSONE 20 MG TAB 40 MG PO (08:20)
[2021-01-04] MEDS: Cyanocobalamin 500 MCG TAB 1000 MCG PO (08:20)
[2021-01-04] MEDS: Pantoprazole 20 MG TABCR PO ×2 (08:20→22:22)
[2021-01-04] MEDS: Tolterodine 2 MG CAPCR 4 MG PO (08:21)
[2021-01-04] MEDS: CEFEPIME 2 GM in Normal Saline 100 ML IVPB ×2 (08:21→17:19)
[2021-01-04] MEDS: Ascorbic Acid 500 MG TAB PO ×2 (08:21→22:23)
[2021-01-04] MEDS: Amiodarone 200 MG TAB PO (08:21)
[2021-01-04] MEDS: dilTIAZem CD 120 MG CAPCR 240 MG PO (08:21)
[2021-01-04] MEDS: Aspirin E.C. 81 MG TABEC PO (08:21)
[2021-01-04] MEDS: Furosemide 40 MG TAB 80 MG PO (08:21)
[2021-01-04] MEDS: VANCOMYCIN/WATER (PEG) 1.25 GM/250 ML BAG IV ×2 (09:58→22:13)
--- NOTE | 2021-01-04 13:58 | PGE_ITS ---
Date of Service Date of service: 01/04/21 Time of Service: 13:58 Assessment and Plan Assessment and plan (1) Acute on chronic respiratory failure with hypoxia and hypercapnia: Status: Acute Assessment and plan: Due to PNA, COPD exacerbation, fluid overload. Change lasix to IV and diurese, monitoring I/O's and daily weights. O2 requirement is better than baseline. Continue scheduled/prn nebs, symbicort, systemic steroids, antibiotics. Needs pulm follow up as outpatient (2) HCAP (healthcare-associated pneumonia): Status: Acute Assessment and plan: As above. MRSA nares +. Continue vancomycin/ cefepime. Sputum C&S not collected. Blood cultures w/ NGTD. (3) Acute exacerbation of chronic obstructive pulmonary disease: Status: Acute Assessment and plan: As above (4) Hypokalemia: Status: Resolved Assessment and plan: Recheck in am (5) Type 2 diabetes mellitus: Status: Chronic Assessment and plan: With steroid induced hyperglycemia. Titrate basal insulin up and increase prandial insulin. Continue SSI. Qualifiers: Diabetes mellitus extermination inspector insulin use: without snf use Diabetes mellitus complication status: without complication Qualified Code(s): E11.9 - Type 2 diabetes mellitus without complications (6) DVT prophylaxis: Status: Acute Assessment and plan: On therapeutic eliquis (for Afib) (7) Discharge planning issues: Status: Acute Assessment and plan: Full code Continues to require hospitalization. Anticipate discharge back to the [facility] on 01/07/21. Subjective Subjective Interval history since last seen: Ms King states that her breathing feels a little heavy today, not better than yesterday, but it feels less crackly, so that part is better. Reports chest pain on cough. Denies dizziness, nausea. Exam Narrative Exam Narrative: General: Pleasant obese female on 1.5L of O2, less anxious and looks better overall HEENT: EOMI, MMM Cardiovascular: RRR, no m/r/g Lungs: subtle rales at bases as well as rhonchi on expiration Gastrointestinal: soft, obese, nontender Extremities: 3+ woody edema BLE - worse today, chronic venous stasis dermatitis, 1+ pedal pulses B Objective Last Vital Signs Temp 36.2 C L 01/04/21 11:45 Pulse 90 01/04/21 12:00 Resp 19 01/04/21 12:00 BP 119/68 01/04/21 11:45 Pulse Ox 98 01/04/21 12:00 Laboratory Results - last 24 hr 01/03/21 01/03/21 05:25 17:30 Glucose 359 H Urine Legionella Ag Negative
--- NOTE | 2021-01-04 14:25 | TELEFU_ITS ---
Date of service: 01/04/21 Time of Service: 14:25 Nutritional Follow up NOTE: Assessment: 70yo female resident of the [facility] admitted for exacerbation of COPD and PMH significant for DMII, RAQUEL, AFib, obesity, hypercholesterolemia, hypomagnesemia and sepsis. Meds: Insulin glargine at 25units HS and sensitive protocol for insulin aspart at meals ? glucose finger sticks are high (with prednisone contributing), however A1C this past October was 6.9 (good range). Low vitamin D level on 12/22/20 (22.7ng/mL) taking 50,000IU per week of cholecalciferol at home to help correct. Denies any intentional or unintentional weight loss, N/V/D/C. Estimated nutrition needs: 2456kcals (REEX1.2) for weight maintenance, 101-135g protein (1.5-2g/kg IBW) and 3480mL (obese adult pt method). Diagnosis: Stage III obesity AEB current BMI >50. Vitamin D deficiency r/t obesity, low exposure to sunlight, and insufficient dietary intake AEB 25-OH Vitamin D on 12/22/20. Intervention: Reviewed diet order of low sodium/CHO consistent diet. Monitoring/intervention: Will be monitoring labs, intake and any nutrition status changes Oc Dickson NDTR ? Mortuary Operations Manager Time Spent in Nutritional Counseling and Treatment: 0
[2021-01-04] MEDS: Furosemide 100 MG/10 ML VIAL 80 MG IVP (16:16)
--- NOTE | 2021-01-04 18:57 | PDOC.CMPRO ---
- If Service Date Differs Date of service: 01/04/21 Time of Service: 18:57 Care Management Progress Note S/O: Marlen was watching TV today happily, as her TV was not working yesterday which was upsetting to her. Per report, she will receive IV lasix today, and her I/O's and weights will be closely monitored. Her O2 requirements are better than baseline. She will remain at [facility] to complete her 5 day IV course of antibiotics, and will likely be ready for discharge back to the [facility] on Sunday. CM will continue to follow. A: Marlen is a 70 year old female admitted to [facility] on 01/02/21 with acute on chronic hypoxic hypercapnic resp failure. P: Marlen will return to the [facility] when medically cleared. She will travel [place] , coordinated by RYAN. She will follow up with her PCP and discharge plan of care. CM will continue to follow.
--- NOTE | 2021-01-04 19:55 | WOUNDCONS_ITS ---
- If Service Date Differs Date of service: 01/04/21 Time of Service: 16:00 Wound Initial Evaluation Narrative: Patient who is being seen here for acute hypoxic hypercapnic resp failure. She has had a previous hx of having wounds on her legs, and presents with a dark area on her posterior left thigh. Discussed with patient goals of treatment, she consents to the consult. Labs, H&P , allergies and other pertinent information were reviewed. Camera failed today and a picture was not able to be taken at that time. Dr. Mayfield stated she had visualized the area and was not concerned about the lack of a picture. - Wound Left Posterior Thigh Wound Type: Other Wound General Appearance: Open to air, Unapproximated Wound Bed Greatest Portion: Red (Granulation) Wound Surrounding Tissue Appearance: [place], Edematous Percent of Wound Bed Granulated/Red: 100 Wound Length: 7.5 cm Wound Width: 4.8 cm Wound Depth: 0.1 cm (less than) Wound Drainage Amount: None Wound Drainage Odor: None/Absent Wound Drainage Description: No drainage Wound Topical Solution/Irrigant: Saline Irrigant Wound Debridement Method: Mechanical Wound Debridement Result: Healthy Tissue Revealed - Circulation, Sensation, Motion Edema Degree: 3+ Peripheral Pulse Strength: Weak Capillary Refill: Less than 3 seconds Sensation Description: Within Normal Limits Skin Temperature: Warm Skin Color: Normal - Treatment/Dressing Change Topicals/Ointments: Other (Eucerin) Cleanse With: Other (soap and water) Dressing Comment: Reccomend to Dr. Mayfield to apply Eucerin Bid, she agrees that this a good treatment and has ordered it through the [facility]. Mention's brawny edema of both lower extremities and she agrees with wound nursing to use carlton wraps for compression - Recomendation Recomendation:: Wash area with soap and water, pat dry, Apply Eucerin cream to the affected area Perform twice daily. Physcian/Nurse Practioner Notified: Yes ()
[2021-01-04] MEDS: Gabapentin 300 MG CAP PO (22:20)
[2021-01-04] MEDS: Docusate Sodium 100 MG CAP 200 MG PO (22:20)
[2021-01-04] MEDS: Insulin Glargine 300 UNITS/3 ML PEN 30 UNITS SC (22:23)
[2021-01-05] MEDS: Albuterol/Ipratropium 3 ML UPD VIAL UPD ×3 (00:12→18:40)
[2021-01-05] MEDS: CEFEPIME 2 GM in Normal Saline 100 ML IVPB ×3 (00:13→16:38)
[2021-01-05 03:23] VITALS: BP 122/74; PULSE 79; RESP 18; TEMP 36.5; O2SAT 91
[2021-01-05] MEDS: Levothyroxine 100 MCG TAB PO (05:39)
[2021-01-05 07:13] LABS: Absolute Basophil Count 0.04 10^3/uL (0.0-0.2); Absolute Eosinophil Count 0.11 10^3/uL (0.0-0.7); Absolute Lymphocyte Count 2.42 10^3/uL (1.2-3.4); Basophils % 0.3; Eosinophils % 0.9; HCT 35.3 % (36.0-46.0); HGB 10.5 g/dL (11.2-15.7); Immature Grans % 0.8; Lymphocytes % 20.4; MCH 30.4 pg (27.0-33.0); MCHC 29.7 % (32.0-36.0); MCV 102.3 fL (80-95); MPV 8.7 fL (8.0-11.0); Monocytes % 8.4; Neutrophils % 69.2; Nucleated RBC 0 %; Platelet Count 383 10^3/uL (130-400); RBC 3.45 10^6/uL (3.93-5.22); RDW 14.6 % (11.7-14.6); RDW-SD 54.8 fL; WBC 11.86 10^3/uL (4.4-10.8)
[2021-01-05 07:20] LABS: Absolute Neutrophil Count 8.21 10^3/uL (1.2-6.7)
[2021-01-05 07:45] LABS: CO2 > 45.0 mmol/L (21.0-32.0); Calcium 8.9 mg/dL (8.5-10.1)
[2021-01-05 07:46] LABS: BUN 18 mg/dL (7-18); Chloride 97 mmol/L (98-107); Glucose 172 mg/dL (74-106); Magnesium 2.2 mg/dL (1.8-2.4); Sodium 142 mmol/L (136-145)
[2021-01-05] MEDS: Furosemide 100 MG/10 ML VIAL 80 MG IVP ×2 (08:13→16:37)
[2021-01-05] MEDS: Polyethylene Glycol 3350 17 GM PACKET PO (08:13)
[2021-01-05] MEDS: Normal Saline Flush 10 ML SYR IVP ×3 (08:14→21:37)
[2021-01-05] MEDS: Insulin Aspart 300 UNITS/3 ML PEN SC ×4 (08:14→21:38)
[2021-01-05] MEDS: Apixaban 5 MG TAB PO ×2 (08:16→21:36)
[2021-01-05] MEDS: Pantoprazole 20 MG TABCR PO ×2 (08:16→21:35)
[2021-01-05] MEDS: Citalopram 20 MG TAB PO (08:16)
[2021-01-05] MEDS: Folic Acid 1 MG TAB PO (08:16)
[2021-01-05] MEDS: Ferrous Sulfate 325 MG TAB PO ×2 (08:16→21:35)
[2021-01-05] MEDS: Aspirin E.C. 81 MG TABEC PO (08:16)
[2021-01-05] MEDS: predniSONE 20 MG TAB 40 MG PO (08:16)
[2021-01-05] MEDS: Tolterodine 2 MG CAPCR 4 MG PO (08:17)
[2021-01-05] MEDS: Potassium Chloride 10 MEQ TABCR PO (08:17)
[2021-01-05] MEDS: Cyanocobalamin 500 MCG TAB 1000 MCG PO (08:17)
[2021-01-05] MEDS: dilTIAZem CD 120 MG CAPCR 240 MG PO (08:17)
[2021-01-05] MEDS: Amiodarone 200 MG TAB PO (08:17)
[2021-01-05 08:30] VITALS: BP 113/71; PULSE 80; RESP 18; TEMP 35.8; O2SAT 93
[2021-01-05] MEDS: Budesonide/Formoterol 160/4.5 6 GM 60 PUFF INH IH ×2 (09:07→21:34)
--- NOTE | 2021-01-05 10:35 | PTTR_ITS ---
PT Notes Visit Reasons: acute on chronic hypoxic hypercapnic resp failure 01/05/2021 SUBJECTIVE: Feels like her cough is loosening up. Agreeable to PT treatment. OBJECTIVE: TRANSFERS Sit to stand: I Stand to sit: I GAIT Device: B FWW Weight bearing: Full Assist: S Distance: 125'+75' Deviation: 2 L NC, 1 seated rest break Vitals: Sa02 on 2 L NC 84%-95% Pt education: Instruct pt in seated LE/UE movement patterns and light strengthening that can be performed throughout the day including LAQ, seated march, UE shoulder flexion and abduction. ASSESSMENT: No LOB noted during gait. She does require one sit rest break due to SOB. Encouraged pt to completes seated LE strengthening exercises throughout the day. PLAN: Per current POC. Treatment time: 25 minutes [id number] Nubia Jensen PTA Clinic location: [facility] [place], [place]
[2021-01-05] MEDS: Ascorbic Acid 500 MG TAB PO ×2 (11:05→21:36)
[2021-01-05] MEDS: Potassium Chloride 20 MEQ TABCR 40 MEQ PO ×3 (11:06→21:36)
[2021-01-05 11:11] VITALS: BP 117/83; PULSE 87; RESP 22; TEMP 36.2; O2SAT 92
[2021-01-05 12:03] LABS: Vancomycin, Trough 13.9 ug/mL (10.0-20.0)
[2021-01-05] MEDS: VANCOMYCIN/WATER (PEG) 1.25 GM/250 ML BAG IV (12:15)
[2021-01-05 15:54] VITALS: BP 120/72; PULSE 76; RESP 16; TEMP 36.7; O2SAT 93
--- NOTE | 2021-01-05 18:56 | PDOC.CMPRO ---
- If Service Date Differs Date of service: 01/05/21 Time of Service: 18:56 Care Management Progress Note S/O: Marlen was sitting up in her chair, watching TV when CM met with her. She stated that she was feeling a little better today. CM later coordinated a zoom visit with the Sleep Study clinic, which was previously scheduled while she was at the [facility], her resident. She stated that she is nervous about having a sleep study because she does not sleep well at night. CM updated the [facility] today, indicating that Marlen will finish her abx course, and will likely be ready for discharge on sunday. CM will continue to follow. A: Marlen is a 70 year old female admitted to [facility] on 01/02/21 with acute on chronic hypoxic hypercapnic resp failure. P: Marlen will return to the [facility] when medically cleared. She will travel by [facility] w/c [place] , coordinated by CM. She will follow up with her PCP and discharge plan of care. CM will continue to follow.
[2021-01-05 19:40] VITALS: BP 117/67; PULSE 84; RESP 20; TEMP 36.5; O2SAT 93
[2021-01-05] MEDS: Docusate Sodium 100 MG CAP 200 MG PO (21:35)
[2021-01-05] MEDS: Gabapentin 300 MG CAP PO (21:36)
[2021-01-05] MEDS: Insulin Glargine 300 UNITS/3 ML PEN 30 UNITS SC (21:37)
[2021-01-06 00:03] VITALS: BP 122/70; PULSE 78; RESP 18; TEMP 36.4; O2SAT 94
[2021-01-06] MEDS: Albuterol/Ipratropium 3 ML UPD VIAL UPD ×4 (00:26→23:26)
[2021-01-06] MEDS: Normal Saline Flush 10 ML SYR IVP ×4 (00:27→19:17)
[2021-01-06] MEDS: CEFEPIME 2 GM in Normal Saline 100 ML IVPB ×4 (00:30→23:28)
[2021-01-06] MEDS: VANCOMYCIN/WATER (PEG) 1.25 GM/250 ML BAG IV ×2 (01:15→12:38)
[2021-01-06 03:30] VITALS: BP 115/75; PULSE 79; RESP 18; TEMP 31.7; O2SAT 95
[2021-01-06] MEDS: Levothyroxine 100 MCG TAB PO (05:29)
[2021-01-06 07:32] LABS: BUN 22 mg/dL (7-18); CREATININE 0.9 mg/dL (0.55-1.02); Chloride 99 mmol/L (98-107); Glucose 188 mg/dL (74-106); Magnesium 2.1 mg/dL (1.8-2.4); Sodium 141 mmol/L (136-145)
[2021-01-06] MEDS: Amiodarone 200 MG TAB PO (08:40)
[2021-01-06] MEDS: Ascorbic Acid 500 MG TAB PO ×2 (08:41→19:13)
[2021-01-06] MEDS: Apixaban 5 MG TAB PO ×2 (08:41→19:14)
[2021-01-06] MEDS: Aspirin E.C. 81 MG TABEC PO (08:42)
[2021-01-06] MEDS: dilTIAZem CD 120 MG CAPCR 240 MG PO (08:43)
[2021-01-06] MEDS: Citalopram 20 MG TAB PO (08:43)
[2021-01-06] MEDS: Cyanocobalamin 500 MCG TAB 1000 MCG PO (08:43)
[2021-01-06] MEDS: Ferrous Sulfate 325 MG TAB PO ×2 (08:44→19:13)
[2021-01-06] MEDS: Folic Acid 1 MG TAB PO (08:44)
[2021-01-06] MEDS: Furosemide 100 MG/10 ML VIAL 80 MG IVP ×2 (08:45→16:48)
[2021-01-06] MEDS: Insulin Aspart 300 UNITS/3 ML PEN SC ×4 (08:45→22:27)
[2021-01-06] MEDS: Pantoprazole 20 MG TABCR PO ×2 (08:48→19:13)
[2021-01-06] MEDS: Polyethylene Glycol 3350 17 GM PACKET PO (08:48)
[2021-01-06] MEDS: predniSONE 20 MG TAB 40 MG PO (08:49)
[2021-01-06] MEDS: Potassium Chloride 10 MEQ TABCR PO (08:49)
[2021-01-06] MEDS: Tolterodine 2 MG CAPCR 4 MG PO (08:50)
[2021-01-06] MEDS: Budesonide/Formoterol 160/4.5 6 GM 60 PUFF INH IH ×2 (09:57→19:16)
[2021-01-06 11:00] LABS: Source Nasal/Nares
--- NOTE | 2021-01-06 12:01 | PDOC.CMPRO ---
- If Service Date Differs Date of service: 01/06/21 Time of Service: 12:01 Care Management Progress Note S/O: Marlen was sitting up in her chair when CM met with her. She reported that she is feeling much better today. CM asked about how her meeting with the sleep clinic went yesterday. Marlen stated that she feels much more comfortable about having the sleep study done now, after talking things over. She reported that the sleep clinic will get in touch with staff at the [facility] in a few days to schedule her sleep study. Per report, Marlen will finish her antibiotic course today, and will likely be ready for discharge back to the [facility] tomorrow. CM scheduled an RCT w/c van for 11 am, pending her discharge. CM will continue to follow. A: Marlen is a 70 year old female admitted to [facility] on 01/02/21 with acute on chronic hypoxic hypercapnic resp failure. P: Marlen will return to the [facility] when medically cleared. She will travel by [facility] w/[facility] van , coordinated by CM. She will follow up with her PCP and discharge plan of care. CM will continue to follow.
--- NOTE | 2021-01-06 13:34 | PGE_ITS ---
Date of Service Date of service: 01/06/21 Time of Service: 13:35 Assessment and Plan Assessment and plan (1) Acute on chronic respiratory failure with hypoxia and hypercapnia: Status: Acute Assessment and plan: Due to PNA, COPD exacerbation, fluid overload. Change lasix to IV and diurese, monitoring I/O's and daily weights. O2 requirement is better than baseline. Continue scheduled/prn nebs, symbicort, systemic steroids, antibiotics. Needs pulm follow up as outpatient (2) HCAP (healthcare-associated pneumonia): Status: Acute Assessment and plan: As above. MRSA nares +. Continue vancomycin/ cefepime will complete 5 day course today Sputum C&S not collected. Blood cultures w/ NGTD. (3) Acute exacerbation of chronic obstructive pulmonary disease: Status: Acute Assessment and plan: As above (4) Hypokalemia: Status: Resolved Assessment and plan: improved with repletion (5) Type 2 diabetes mellitus: Status: Chronic Assessment and plan: With steroid induced hyperglycemia. Titrate basal insulin up and increase prandial insulin. Continue SSI. Qualifiers: Diabetes mellitus group home insulin use: without unix administrator use Diabetes mellitus complication status: without complication Qualified Code(s): E11.9 - Type 2 diabetes mellitus without complications (6) DVT prophylaxis: Status: Acute Assessment and plan: On therapeutic eliquis (for Afib) (7) Discharge planning issues: Status: Acute Assessment and plan: Full code Continues to require hospitalization. Anticipate discharge back to the [facility] on 01/07/21. discharge discussed with DR Mayfield Subjective Subjective Patient reports: no new complaints, feels better, tolerating liquids well, tolerating a regular diet and afebrile; denies shortness of breath (at baseline) Exam Const General: cooperative and no acute distress Nutritional Appearance: obese morbidly obese Orientation: alert, awake and oriented x3 HENMT Head: normal to inspection Face and sinus: normal facial exam Eyes General: appearance normal, both eyes and all related structures EOM: EOM intact bilaterally Neck Neck: normal visual inspection Chest Chest: normal inspection of the chest Resp Effort & Inspection: normal respiratory effort and able to speak in complete sentences Auscultation: diminished lung sounds bilaterally throughout Cardio Rate: regular rate Rhythm: regular rhythm GI Inspection: normal to inspection and obesity Palpation: soft, not firm, not rigid and nontender Auscultation: hypoactive bowel sounds Skin General skin exam: no rashes or lesions noted Neuro General: patient alert, patient awake and patient oriented x3 Cognition: normal cognition Speech: speech normal Motor: muscle tone normal throughout Sensory Exam: no sensory deficits noted Extrem General: capillary refill normal and no calf tenderness bilaterally Psych Appearance: grossly normal Mental Status: mental status grossly normal Speech and Movement: speech and movement normal Affect: normal affect Objective Last Vital Signs Temp 31.7 C L 01/06/21 03:30 Pulse 79 01/06/21 03:30 Resp 18 01/06/21 03:30 BP 115/75 01/06/21 03:30 Pulse Ox 95 01/06/21 03:30 Laboratory Results - last 24 hr 01/06/21 01/06/21 06:15 10:50 Sodium 141 Potassium 4.0 D Chloride 99 Carbon Dioxide 44.0 H Anion Gap -2.0 L BUN 22 H Creatinine 0.9 Estimated GFR/1.73 m2 >= 60.00 Glucose 188 H Calcium 9.0 Magnesium 2.1 COVID-19 Source Nasal/Nares
[2021-01-06 13:39] LABS: COVID-19 PCR Negative (Negative)
--- NOTE | 2021-01-06 13:40 | W.PM.PROGNOT ---
Date of Service Date of service: 01/05/21 Time of Service: 16:00 Assessment and Plan Assessment and plan (1) Acute on chronic respiratory failure with hypoxia and hypercapnia: Status: Acute Assessment and plan: Due to PNA, COPD exacerbation, fluid overload. Change lasix to IV and diurese, monitoring I/O's and daily weights. O2 requirement is better than baseline. Continue scheduled/prn nebs, symbicort, systemic steroids, antibiotics. Needs pulm follow up as outpatient (2) HCAP (healthcare-associated pneumonia): Status: Acute Assessment and plan: As above. MRSA nares +. Continue vancomycin/ cefepime day 4/ Sputum C&S not collected. Blood cultures w/ NGTD. (3) Acute exacerbation of chronic obstructive pulmonary disease: Status: Acute Assessment and plan: As above (4) Hypokalemia: Status: Resolved Assessment and plan: improved with repletion (5) Type 2 diabetes mellitus: Status: Chronic Assessment and plan: With steroid induced hyperglycemia. Titrate basal insulin up and increase prandial insulin. Continue SSI. Qualifiers: Diabetes mellitus half-way insulin use: without extermination supervisor use Diabetes mellitus complication status: without complication Qualified Code(s): E11.9 - Type 2 diabetes mellitus without complications (6) DVT prophylaxis: Status: Acute Assessment and plan: On therapeutic eliquis (for Afib) (7) Discharge planning issues: Status: Acute Assessment and plan: Full code Continues to require hospitalization. Anticipate discharge back to the [facility] on 01/07/21. discharge discussed with DR Mayfield Subjective Subjective Patient reports: no new complaints, feels better, tolerating liquids well, tolerating a regular diet and afebrile Exam Const General: cooperative and no acute distress Nutritional Appearance: obese morbidly obese Orientation: alert, awake and oriented x3 HENMT Head: normal to inspection Face and sinus: normal facial exam Eyes General: appearance normal, both eyes and all related structures EOM: EOM intact bilaterally Neck Neck: normal visual inspection Chest Chest: normal inspection of the chest Resp Effort & Inspection: normal respiratory effort and able to speak in complete sentences Auscultation: diminished lung sounds bilaterally throughout Cardio Rate: regular rate Rhythm: regular rhythm GI Inspection: normal to inspection and obesity Palpation: soft, not firm, not rigid and nontender Auscultation: hypoactive bowel sounds Skin General skin exam: no rashes or lesions noted Neuro General: patient alert, patient awake and patient oriented x3 Cognition: normal cognition Speech: speech normal Motor: muscle tone normal throughout Sensory Exam: no sensory deficits noted Extrem General: capillary refill normal and no calf tenderness bilaterally Psych Appearance: grossly normal Mental Status: mental status grossly normal Speech and Movement: speech and movement normal Affect: normal affect Objective Last Vital Signs Temp 31.7 C L 01/06/21 03:30 Pulse 79 01/06/21 03:30 Resp 18 01/06/21 03:30 BP 115/75 01/06/21 03:30 Pulse Ox 95 01/06/21 03:30 Laboratory Results - last 24 hr 01/06/21 01/06/21 06:15 10:50 Sodium 141 Potassium 4.0 D Chloride 99 Carbon Dioxide 44.0 H Anion Gap -2.0 L BUN 22 H Creatinine 0.9 Estimated GFR/1.73 m2 >= 60.00 Glucose 188 H Calcium 9.0 Magnesium 2.1 COVID-19 Source Nasal/Nares
[2021-01-06 14:52] VITALS: BP 139/76; PULSE 74; RESP 16; TEMP 36.4; O2SAT 97
[2021-01-06] MEDS: Acetaminophen 325 MG TAB PO (14:56)
--- NOTE | 2021-01-06 15:08 | CHAPLAIN ---
Marlen was trying to nap in her chair when I visited. She said she will be returning to the [facility] when she is medically cleared to go. I explained my role and offered support.
--- NOTE | 2021-01-06 15:38 | PT.INNT ---
Date of service: 01/06/21 Time of Service: 15:38 PT Notes Visit Reasons: acute on chronic hypoxic hypercapnic resp failure 01/06/2021 Patient refused PT services due to significant SOB at rest. SaO2: 92-93% on 2L O2, however, labored breathing observed. Will attempt to resume PT services tomorrow morning.
[2021-01-06] MEDS: Bisacodyl 10 MG SUPP PR (16:49)
--- NOTE | 2021-01-06 18:00 | INDS_ITS ---
Date of service: 01/10/21 Time of Service: 09:12 PT Notes Visit Reasons: Acute on Chronic Hypoxic Hypercapnic Resp Failure Physical Therapy Inpatient Discharge Summary Date: 01/06/21 Dates of Service: 01/03/2021 through 01/06/2021 This is a clinical summary of care provided for the duration of dates listed above. No charge was made in the completion of this documentation. Referring Doctor: Tawnya Mayfield MD PT Orders: PT CONSULT: Limited ability Precautions: Fall. Standard. Activity as tolearted. Patient Profile/Admitting Diagnosis: Patient is a 70-year-old female LTC resident of the [facility] who presented to the ED on 01/02/2021 for increasing shortness of breath and worsening for the past three weeks prior to admission. Patient has new diagnoses of HCV, acute on chronic respiratory failure, COPD exacerbation, hypokalemia and type 2 diabetes mellitus. PMHX: Medical History Arthritis Atrial fibrillation Cellulitis bilateral lower extremities CHF (congestive heart failure) Chronic respiratory failure with hypoxia COPD (chronic obstructive pulmonary disease) Diabetes mellitus Family history unobtainable due to patient's condition GERD (gastroesophageal reflux disease) Hypercholesterolemia Mood disorder Muscle weakness (generalized) Obesity Plaque psoriasis Type 2 diabetes mellitus Surgical History H/O hand surgery right index finger removal of tendon sheath ganglion H/O: hysterectomy History of carpal tunnel surgery of right wrist History of excision of lesion abdominal cyst removed S/P appendectomy Social History/Home Situation: Patient is a resident of the [facility] for over a year now. States that has not fallen for the past year. She typically ambulates short distances with a FWW of about 30 feet with no significant shortness of breath. Equipment Owned/DME: FWW, wheelchair, resident of LT facility Subjective: NT. See most recent [employer]ACH[employer] notes. Objective: General Observation: Running starting steroid NT. Mental Status: NT. See most recent M[employer] notes. Pain: NT. See most recent [employer] notes. Vital Signs: NT. See most recent M[employer] notes. ROM: Right Upper Extremity: Shoulder Flexion WFL. Shoulder abduction WFL. Elbow flexion WFL. Wrist flexion WFL. Functional opening and closing of hand WFL. Left Upper Extremity: Shoulder Flexion WFL. Shoulder abduction WFL. Elbow flexion WFL. Wrist flexion WFL. Functional opening and closing of hand WFL. Right Lower Extremity: Hip flexion WFL. Hip abduction WFL. Knee flexion WFL. Ankle dorsiflexion WFL. Ankle plantarflexion WFL. Left Lower Extremity: Hip flexion WFL. Hip abduction WFL. Knee flexion WFL. Ankle dorsiflexion WFL. Ankle plantarflexion WFL. Strength: Right Upper Extremity: Shoulder flexors 4-/5. Shoulder abductors 4-/5. Elbow flexors 4-/5. Elbow extensors 4-/5. Supervisor Area strong. Left Upper Extremity: Shoulder flexors 4-/5. Shoulder abductors 4-/5. Elbow flexors 4-/5. Elbow extensors 4-/5. Supervisor Area strong. Right Lower Extremity: Hip flexors 4-/5. Hip abductors 4-/5. Knee flexors 4-/5. Knee extensors 4-/5. Ankle dorsiflexors 4-/5. Ankle plantarflexors 4-/5. Left Lower Extremity: Hip flexors 4-/5. Hip abductors 4-/5. Knee flexors 4-/5. Knee extensors 4-/5. Ankle dorsiflexors 4-/5. Ankle plantarflexors 4-/5. Bed Mobility/Transfers: Sit to stand independent Stand to sit independent Bed to chair independent Chair to bed independent gait Gait: Up to 125 feet using front wheeled walker with full weight bearing requiring only supervision demonstrating reciprocal gait pattern but with decreased josh and decreased step height on the left. Saturates between 84%- 95% on 3L/minute. Balance: Static Sitting: Normal Dynamic Sitting: Normal Static Standing: Fair Dynamic Standing: Fair Assessment: Marlen is now at baseline functional mobility level using the FWW. She returns to the SNF whenever she is cleared medically by hospitalist. Patient continues to present with clinical signs and symptoms consistent with weakness related to acute medical condition in combination with chronic underlying health conditions, as demonstrated by the following impairment level findings: 1. Decreased UE and LE strength 2. Swelling in B legs from chronic lymphedema Impairments are continuing to contributing to the following functional limitations: 1. Increased risk for B LE skin infection breakdown Goals: Goals X1 week 1. Supine-Sit independent MET 2. Sit-Supine independent MET 3. Sit-Stand independent MET 4. Stand-Sit independent MET 5. Bed-Chair independent MET 6. Chair-Bed independent MET 7. Independent gait on level surface with use of least restrictive device for at least 300 feet without report of pain nor dyspnea MET 8. Good static and dynamic standing balance/tolerance MET DISCHARGE RECOMMENDATIONS: Return to SNF when medically cleared by hospitalist. Continue with functional mobility progression as tolerated. Continue use of bilateral lower extremity compression garments for continued containment of B LE lymphedema. TREATMENT CODE/TIME: [place] Thank you for the opportunity to participate in the care of this patient. Pily Myrick PT, DPT, CLT [facility] [place], [place]
[2021-01-06] MEDS: traMADol 50 MG TAB PO (19:13)
[2021-01-06 19:39] VITALS: BP 117/66; PULSE 79; RESP 20; TEMP 36.8; O2SAT 93
[2021-01-06] MEDS: Insulin Glargine 300 UNITS/3 ML PEN 30 UNITS SC (22:25)
[2021-01-06] MEDS: Docusate Sodium 100 MG CAP 200 MG PO (22:25)
[2021-01-06] MEDS: Gabapentin 300 MG CAP PO (22:25)
[2021-01-06 23:12] VITALS: BP 126/66; PULSE 74; RESP 18; TEMP 36.4; O2SAT 94
[2021-01-06 23:26] VITALS: RESP 18; RESP 4
[2021-01-07] MEDS: VANCOMYCIN/WATER (PEG) 1.25 GM/250 ML BAG 1.66 GM IV (00:19)
[2021-01-07 03:27] VITALS: BP 125/68; PULSE 72; RESP 18; TEMP 36.5; O2SAT 92
[2021-01-07] MEDS: Albuterol/Ipratropium 3 ML UPD VIAL UPD (06:30)
[2021-01-07] MEDS: Levothyroxine 100 MCG TAB PO (06:30)
[2021-01-07 07:40] VITALS: BP 128/64; PULSE 74; RESP 16; TEMP 36.6; O2SAT 92
[2021-01-07] MEDS: Folic Acid 1 MG TAB PO (08:04)
[2021-01-07] MEDS: Potassium Chloride 10 MEQ TABCR PO (08:04)
[2021-01-07] MEDS: dilTIAZem CD 120 MG CAPCR 240 MG PO (08:04)
[2021-01-07] MEDS: Ascorbic Acid 500 MG TAB PO (08:05)
[2021-01-07] MEDS: Ferrous Sulfate 325 MG TAB PO (08:05)
[2021-01-07] MEDS: Apixaban 5 MG TAB PO (08:05)
[2021-01-07] MEDS: Amiodarone 200 MG TAB PO (08:05)
[2021-01-07] MEDS: Citalopram 20 MG TAB PO (08:06)
[2021-01-07] MEDS: Pantoprazole 20 MG TABCR PO (08:07)
[2021-01-07] MEDS: predniSONE 20 MG TAB 40 MG PO (08:07)
[2021-01-07] MEDS: Aspirin E.C. 81 MG TABEC PO (08:07)
[2021-01-07] MEDS: Cyanocobalamin 500 MCG TAB 1000 MCG PO (08:07)
[2021-01-07] MEDS: Docusate Sodium 100 MG CAP PO (08:07)
[2021-01-07] MEDS: Furosemide 100 MG/10 ML VIAL 80 MG IVP (08:08)
[2021-01-07] MEDS: Polyethylene Glycol 3350 17 GM PACKET PO (08:08)
[2021-01-07] MEDS: Tolterodine 2 MG CAPCR 4 MG PO (08:08)
[2021-01-07] MEDS: Normal Saline Flush 10 ML SYR IVP (08:12)
[2021-01-07] MEDS: Insulin Aspart 300 UNITS/3 ML PEN SC (08:12)
[2021-01-07] MEDS: Budesonide/Formoterol 160/4.5 6 GM 60 PUFF INH IH (08:13)
[2021-01-07] MEDS: CEFEPIME 2 GM in Normal Saline 100 ML IVPB (08:27)
--- NOTE | 2021-01-07 10:02 | DSE_ITS ---
Date of service: 01/07/21 Time of Service: 10:03 DS: Diagnosis Discharge Diagnosis (1) Acute on chronic respiratory failure with hypoxia and hypercapnia: Status: Acute (2) HCAP (healthcare-associated pneumonia): Status: Acute (3) Acute exacerbation of chronic obstructive pulmonary disease: Status: Acute (4) Hypokalemia: Status: Resolved (5) Type 2 diabetes mellitus: Status: Chronic Discharge Plan Disposition Patient Disposition: SNF (LEVEL 1) [facility] Condition: Stable Discharge Details Reason For Visit: Acute on Chronic Hypoxic Hypercapnic Resp Failure Admit Date/Time: 01/02/21 14:05 Admit Provider: Tawnya Mayfield Attending Provider: Tawnya Mayfield Primary Care Provider: Evi Cloud Hospital Course Hospital Course: Ms King is a 70 year old female with history of chronic hypoxic hypercapnic respiratory failure (normally on 2-3 L of O2 by [place]) due to COPD, OHS, pulmonary hypertension, Afib on eliquis, IDDM2, hypertension, who resides at the [facility]. She was discharged from [facility] hospitalist service on 12/16/20 after an admission for HCAP, who was brought to [facility] ED again after about 3 weeks of shortness of breath, worsening and requiring 4L of O2. She was saturating in low 80s on her usual 2-3L of O2 at the SNF. She received nebs x 2 en route to the hospital and on arrival to [facility] was saturating in the 90s on 4L. She was placed on BiPAP with improvement of her sx. Her ABG showed pH of 7.39, pCO2 of 82, pO2 of 79, O2 sat of 95 % on 3L. ABG done 3 hrs later, on BiPAP showed pH of 7.40, pCO2 of 79, pO2 of 81, bicarb of 48, O2 sat of 96% on BIPAP 12/5 and 35% FiO2. Her imaging (CXR) showed worsening right sided multifocal infiltrates. She tested negative for COVID-19. She was initiated on vancomycin/cefepime and admitted to hospitalist services. she was also diuresed while admitted. she improved with treatment and completed 5 day course of broad spectrum antibiotics. she was back to her baseline. Her cultures remained negative. She was eating and drinking and is stable for discharge back to the [facility]. She will not require any further antibiotics or steroids at discharge. discharge discussed with Dr Mayfield. Home Meds and New Rx's Prescriptions: Continued pantoprazole 20 mg tablet,delayed release (DR/EC) 20 mg PO BID RF: 0 aspirin 81 mg Tablet,Delayed Release (Dr/Ec) 81 mg PO QAM RF: 0 diltiazem HCl [DILT-XR] 240 mg capsule,ext.rel 24h degradable 240 mg PO QAM RF: 0 folic acid 1 mg Tablet 1 mg PO QAM RF: 0 cyanocobalamin (vitamin B-12) [Vitamin B-12] 100 mcg Tablet 1,000 mcg PO QAM RF: 0 budesonide-formoterol [Symbicort] 160-4.5 mcg/actuation HFA aerosol inhaler 2 inh INHALATION BID RF: 0 Eliquis 5 mg tablet 5 mg PO BID RF: 0 albuterol sulfate 90 mcg/actuation HFA aerosol inhaler 2 inh INHALATION .Q4H,PRN PRNRF: 0 tramadol 50 mg Tablet 50 mg PO QID PRNRF: 0 acetaminophen [Tylenol] 325 mg Tablet 650 mg PO Q4H PRNRF: 0 epinephrine 0.3 mg/0.3 mL Auto-Injector 0.3 mg IM PRN PRNRF: 0 amiodarone 200 mg tablet 200 mg PO DAILY RF: 0 citalopram 40 mg tablet 20 mg PO QAM RF: 0 furosemide [Lasix] 20 mg tablet 80 mg PO BID RF: 0 tolterodine 4 mg capsule,extended release 24hr 4 mg PO DAILY AM RF: 0 potassium chloride 10 mEq tablet extended release 10 meq PO DAILY AM RF: 0 Spiriva with HandiHaler 18 mcg Capsule, W/Inhalation Device 1 cap INHALATION DAILY RF: 0 ascorbic acid (vitamin C) [Vitamin C] 500 mg Tablet 500 mg PO BID RF: 0 gabapentin 300 mg Capsule 300 mg PO HS RF: 0 Ericson Saline Gel Harrison,Non-Aerosol 1 spray INTRANASAL DAILY RF: 0 cholecalciferol (vitamin D3) 1,250 mcg (50,000 unit) Capsule 50,000 unit PO .1X/WEEK RF: 0 Lantus Solostar U-100 Insulin 100 unit/mL (3 mL) Insulin Pen 20 unit SUBCUT HS Qty: 0 RF: 0 levothyroxine 100 mcg Tablet 100 mcg PO DAILY RF: 0 polyethylene glycol 3350 [Miralax] 17 gram/dose Powder 17 g PO DAILY RF: 0 insulin aspart U-100 100 unit/mL (3 mL) Insulin Pen 1 sliding scale dose SUBCUT USEASDIRECTD RF: 0 metformin 500 mg tablet 500 mg PO TID RF: 0 triamcinolone acetonide 0.025 % cream 0 applic TOPICAL DIRECTED RF: 0 Trulicity 0.75 mg/0.5 mL pen injector 0.75 mg SUBCUT DIRECTED RF: 0 Trulicity 1.5 mg/0.5 mL pen injector 1.5 mg SUBCUT DIRECTED RF: 0 ferrous sulfate 325 mg (65 mg iron) Tablet 325 mg PO BID RF: 0 T Gel Shampoo 1 applic topical .SUNDAY RF: 0 Discharge Instructions Instructions: Pneumonia (DC) Stand Alone Forms: Nursing Discharge Form Referrals: Evi Cloud [Primary Care Provider] - Activity:: Activity as Tolerated Equipment/Supplies:: No Equipment Needed Diet:: As Tolerated Discharge Orders Discharge Orders: Discharge Order (Routine); Ordered 01/07/21 Ordered By: Shalini George DS: Summary Time Spent with Patient providing and/or coordinating discharge services: Greater than 30 minutes Status at Discharge Functional status at discharge: uses cane/walker Overall status at discharge: patient is back to baseline Mental Status: mental status grossly normal Speech and Movement: speech and movement normal Mood: congruent mood Affect: normal affect Exam Const General: cooperative and no acute distress Nutritional Appearance: obese morbidly obese Orientation: alert, awake and oriented x3 HENMT Head: normal to inspection Face and sinus: normal facial exam Eyes General: appearance normal, both eyes and all related structures EOM: EOM intact bilaterally Neck Neck: normal visual inspection Chest Chest: normal inspection of the chest Resp Effort & Inspection: normal respiratory effort and able to speak in complete sentences Auscultation: diminished lung sounds bilaterally throughout Cardio Rate: regular rate Rhythm: regular rhythm GI Inspection: normal to inspection and obesity Palpation: soft, not firm, not rigid and nontender Auscultation: hypoactive bowel sounds Skin General skin exam: no rashes or lesions noted Neuro General: patient alert, patient awake and patient oriented x3 Cognition: normal cognition Speech: speech normal Motor: muscle tone normal throughout Sensory Exam: no sensory deficits noted Extrem General: capillary refill normal and no calf tenderness bilaterally Psych Appearance: grossly normal Mental Status: mental status grossly normal Speech and Movement: speech and movement normal Mood: congruent mood Affect: normal affect DS: Data Vitals/I&O Vitals and I&O: Vital Signs Temperature 36.6 C 01/07/21 07:40 Temperature Source Tympanic 01/07/21 07:40 Pulse 74 01/07/21 07:40 Pulse Rhythm Regular 01/07/21 08:35 Pulse 85 01/02/21 15:01 Respiratory Rate 16 01/07/21 07:40 Respiratory Effort Non-Labored 01/07/21 08:35 Respiratory Depth Normal 01/07/21 08:35 Respiratory Pattern Normal 01/07/21 08:35 Blood Pressure 128/64 01/07/21 07:40 Blood Pressure Mean 62 01/02/21 15:01 Blood Pressure Position Sitting 01/02/21 10:40 Pulse Oximetry 92 01/07/21 07:40 Oxygen Delivery Method Nasal Cannula 01/07/21 07:40 Oxygen Flow Rate 1 01/07/21 07:40 Fraction of Inspired Oxygen (FIO2) 28 01/02/21 15:57 Pain Level 0 01/07/21 07:40 Comment 01/06/21 03:30 Intake & Output 01/06/21 01/06/21 01/07/21 11:59 23:59 11:59 Intake Total 940 / 1390 450 / 1390 Output Total 1650 / 4075 2425 / 4075 850 / 850 Balance -710 / -2685 -1975 / -2685 -850 / -850 Weight 151.8 kg Intake: IV 450 / 900 450 / 900 Oral 490 / 490 Output: Urine 1650 / 4075 2425 / 4075 850 / 850 Other: Urine Color Yellow Yellow Light Milli Urine Appearance Clear Cloudy Clear Urine Odor Strong Stool Size Smear Stool Characteristics Soft Voiding Methods Indwelling Catheter Data Completed and Pending Labs on day of discharge: Labs from last 24 hours 01/06/21 10:50 COVID-19 Source Nasal/Nares SARS-CoV-2 (PCR) Negative Preliminary micro results at discharge 01/02/21 11:01 Blood Culture - Preliminary Blood NO GROWTH 96 HOURS 01/02/21 13:12 Blood Culture - Preliminary Blood NO GROWTH 96 HOURS [facility] History Acute on chronic respiratory failure with hypoxia and hypercapnia Altered mental status Arthritis Atrial fibrillation Cellulitis bilateral lower extremities Cellulitis CHF (congestive heart failure) Chronic respiratory failure with hypoxia COPD (chronic obstructive pulmonary disease) Diabetes mellitus Family history unobtainable due to patient's condition GERD (gastroesophageal reflux disease) Hypercholesterolemia Mood disorder Muscle weakness (generalized) Obesity Plaque psoriasis Pneumonia Streptococcal bacteremia Toxic metabolic encephalopathy Type 2 diabetes mellitus Surgical History H/O hand surgery right index finger removal of tendon sheath ganglion H/O: hysterectomy History of carpal tunnel surgery of right wrist History of excision of lesion abdominal cyst removed S/P appendectomy Family History Father Heart disease 2 MO, at 62 Mother Heart disease Social History Smoking/Tobacco Use Status: Former Tobacco Use Smoking risk assessment performed?: Yes Alcohol Intake: never Drug use: Never Substance use type: does not use Do you feel safe at home: Yes Do you feel safe in your relationship?: Yes
--- NOTE | 2021-01-07 10:49 | CMDISCH_ITS ---
- If Service Date Differs Date of service: 01/07/21 Time of Service: 10:49 LACE Index Scoring Tool - Questions: Length of Stay (in days): 4 - 6 Acuity (Admit via E.D.?): Yes Comorbidities: Diabetes w/o Complication, Congestive Heart Failure, Chronic Pulmonary Disease E.D. Visits: 6 - Answers: Total Score: 16 Risk of Readmission: High Risk Care Management Discharge Reason for Hospitalization: acute on chronic hypoxic hypercapnic resp failure Discharge Plan: Discharge back to the [facility] via wheelchair van arranged by CM. Follow up with community providers and discharge plan of care as prescribed. Patient/Family Education Needs: Review discharge instructions, limitations and plan to follow up with community providers, ask me three. Services Needed at Discharge: [facility] Facility (Discharged back to the [facility] Transportation (via wheelchair van arranged by CM)
[2021-01-07] MEDS: Bacitracin 1 PACKET (11:31)
[2021-01-11 13:07] LABS: Streptococcus Pneumoniae Ag, U Negative (Negative)
== END 2021-01-07 11:16 | disposition skilled nursing facility (03) | DRG 193 ==
LOC: ER 14:24 → MS 15:23
PROVIDERS: Admitting Provider Internal Medicine; Emergency Provider Physician Assistant; PCP Family Medicine; Visit Provider Internal Medicine
DX: J18.9 Pneumonia, unspecified organism (principal); J96.21 Acute and chronic respiratory failure with hypoxia; J96.22 Acute and chronic respiratory failure with hypercapnia; J44.0 Chronic obstructive pulmonary disease with (acute) lower respiratory infection; J44.1 Chronic obstructive pulmonary disease with (acute) exacerbation; Z68.43 Body mass index [BMI] 50.0-59.9, adult; I27.20 Pulmonary hypertension, unspecified; I48.91 Unspecified atrial fibrillation; E11.9 Type 2 diabetes mellitus without complications; I50.9 Heart failure, unspecified; I11.0 Hypertensive heart disease with heart failure; K21.9 Gastro-esophageal reflux disease without esophagitis; E78.00 Pure hypercholesterolemia, unspecified; F39 Unspecified mood [affective] disorder; R53.1 Weakness; E66.9 Obesity, unspecified; L40.0 Psoriasis vulgaris; S71.102A Unspecified open wound, left thigh, initial encounter; X58.XXXA Exposure to other specified factors, initial encounter; E87.6 Hypokalemia; Z99.81 Dependence on supplemental oxygen; Z79.84 Long term (current) use of oral hypoglycemic drugs; Z79.01 Long term (current) use of anticoagulants; Z79.4 Long term (current) use of insulin
CPT/HCPCS: 36410; 36415; 80048; 80053; 82805; 82947; 84145; 87040; 87081; 87449; 87635; 93005; 94640; 96361; 96365; 96375; 97162; 97530; 99285; 36600; 71046; 80202; 81003; 81015; 83605; 83735; 83880; 84484; 85025; 87899; 93010; 94660; 99223; 99232; 99233; 99239; J1940; J2930; J3490; J7512; J7613; J7620

== ENCOUNTER 2021-01-13 08:54 | Inpatient (IN) | payer MEDICARE, MEDICAID, SELFPAY ==
[2021-01-13] VITALS (50 sets, daily range): BP systolic 88–151; BP diastolic 54–103; PULSE 86–122; RESP 4–28; TEMP 36.3–36.8; O2SAT 80–98
--- NOTE | 2021-01-13 08:45 | RT.EKG_ITS ---
APPROVED REPORT Exam: Resting ECG Reason for Exam: dyspnea Patient Location: E HR:88 bpm ECG Measurements Heart Rate 88 AXIS MD 198 P 86 QRSd 107 QRS -49 QT 413 T 44 QTc 501 Conclusion Sinus rhythm...normal P axis, V-rate 60- 99 Inferolateral infarct, old...Q >40mS, inf-lat leads Prolonged QT interval...QTc >500mS. Sinus. No STEMI. I have reviewed and interpreted ECG and agree with software generated interpretation.
--- NOTE | 2021-01-13 08:49 | ED.GENADUL_ITS ---
Discharge Plan Disposition Patient Disposition: [facility] INPATIENT Condition: Fair Discharge Details Clinical Impression: Acute and chronic respiratory failure with hypercapnia, HCAP (healthcare- associated pneumonia), Morbid obesity Admit Date/Time: 01/13/21 11:43 Admit Provider: Marcel Willett Attending Provider: Marcel Willett Primary Care Provider: Evi Cloud ED Provider: Isabel Davis Discharge Data Discharge Date/Time-TO BE ENTERED AT DEPARTURE: 01/13/21 12:37 Medical Decision Making 70yo F from the [facility] w/ a h/o morbid obesity, chronic hypoxic hypercapnic respiratory failure on 3L NC due to COPD, OHS, pulmonary hypertension, Afib on eliquis, IDDM2, hypertension presents for shortness of breath and increasing nasal cannula oxygen requirements who is being sent for BiPAP. She was discharged from here last week for pneumonia. This was her second admission for pneumonia in the past month. Recent Covid test negative. Report per Dr. Shetty with that her oxygen saturation were in the 80s on 5 L and that she needed BiPAP and potentially admission. Oxygen saturation on 5 L here in the ED 97%. She was decreased to 4 L and her oxygen saturation is mid 90s. She does admit to shortness of breath. She has audible wheezing. She has diminished breath sounds in her left chest. Differential diagnosis includes acute on chronic hypercapnic respiratory failure, worsening pneumonia, acute COPD exacerbation, acute CHF, COVID-19, or a combination of her multiple comorbidities complicating her respiratory status. I do not feel like she needs BiPAP at this time. Per recent discussion with Dr. Shetty, patient is DNI. Per my discussion with patient in room, she is DNR/DNI. Labs and imaging reviewed. White blood cell count 12, increased from 11. ABG notes a normal pH with a PCO2 of 91 with compensation of bicarb in the 50s. She has become more somnolent so we will place her on BiPAP. Remainder of labs unremarkable. Troponin negative. Procalcitonin negative. Covid negative. Chest x-ray read as slight worsening compared to previous. Case discussed with hospitalist accepts patient for admission. Case also discussed with Dr. Shetty who evaluated patient and discussed long-term goals and plan for obtaining BiPAP for her when she returns to the [facility]. Per discussion with hospitalist, will like to cover with antibiotics. She has a history of MRSA so we will add vancomycin to Rocephin and doxycycline. Case, results and plan discussed with patient's daughter over the phone. Medical Records Medical records reviewed: Yes I reviewed the patient's medical records. Imaging Data Radiologic Study: Radiologist's impression: XR PORTABLE CHEST AP CLINICAL HISTORY: shortness of breath, r/o acute disease. TECHNIQUE: 2D digital imaging was performed. COMPARISON: CR,XR XR CHEST 2V PA LATERAL from 01/02/2021 FINDINGS: Study is limited by body habitus and patient being rotated towards the left side.. Cardiomegaly is again noted. Mediastinum appears unchanged. There are now air bronchograms in the left lower lobe retrocardiac region, not previously present, consistent with infiltrate. Also persistent infiltrate throughout the right lung. No large pleural effusions evident. IMPRESSION: Further deterioration when compared to 01/02/2021.If clinically indicated further study with CT scan can be performed, given the limitations of this portable view. Lab Data Lab results reviewed: Yes I reviewed the patient's lab results. Labs: 01/13/21 12:00 Nose MRSA Screen - Pending 01/13/21 10:55 Blood Blood Culture - Pending 01/13/21 09:08 Blood Blood Culture - Pending Laboratory Tests Range/Units 01/13/21 01/13/21 01/13/21 09:03 09:08 09:08 WBC (4.4-10.8) 10^3/uL RBC (3.93-5.22) 10^6/uL Hgb (11.2-15.7) g/dL Hct (36.0-46.0) % MCV (80-95) fL MCH (27.0-33.0) pg MCHC (32.0-36.0) % RDW (11.7-14.6) % Plt Count (130-400) 10^3/uL MPV (8.0-11.0) fL Immature Gran % Neutrophils % Lymphocytes % Monocytes % Eosinophils % Basophils % Nucleated RBC % % Absolute Neutrophils (1.2-6.7) 10^3/uL Absolute Lymphocytes (1.2-3.4) 10^3/uL Absolute Monocytes (0.1-0.8) 10^3/uL Absolute Eosinophils (0.0-0.7) 10^3/uL Absolute Basophils (0.0-0.2) 10^3/uL ABG Sample Site Left Radial ABG pH (7.35-7.45) 7.38 ABG pCO2 (35-45) mmHg 91 H* ABG pO2 (80-105) mmHg 77 L ABG HCO3 (22-26) mmol/L 53 H ABG Total CO2 (23-27) mmol/L 50 H ABG O2 Saturation (95-98) % 95 ABG Base Excess (-2-3) mmol/L > 15 H VBG Lactate (0.6-1.4) mmol/L 1.1 Oxygen Liter Flow L 5 Sodium (136-145) mmol/L 140 Potassium (3.5-5.1) mmol/L 3.5 Chloride (98-107) mmol/L 93 L Carbon Dioxide (21.0-32.0) mmol/L > 45.0 H Anion Gap (3-11) mmol/L 1.32923 L BUN (7-18) mg/dL 11 Creatinine (0.55-1.02) mg/dL 0.8 Estimated GFR/1.73 m2 (mL/min/1.73m2) >= 60.00 Glucose (74-106) mg/dL 223 H Calcium (8.5-10.1) mg/dL 9.3 Magnesium (1.8-2.4) mg/dL 1.8 Total Bilirubin (0.2-1.0) mg/dL 0.4 AST (15-37) U/L 13 L ALT (14-59) U/L 16 Alkaline Phosphatase (46-116) U/L 85 Troponin I (<0.06) ng/mL < 0.05 Total Protein (6.4-8.2) g/dL 7.4 Albumin (3.4-5.0) g/dL 2.6 L Procalcitonin ng/mL COVID-19 Source SARS-CoV-2 (PCR) (Negative) Range/Units 01/13/21 01/13/21 01/13/21 09:08 09:08 09:08 WBC (4.4-10.8) 10^3/uL 12.79 H RBC (3.93-5.22) 10^6/uL 3.58 L Hgb (11.2-15.7) g/dL 10.7 L Hct (36.0-46.0) % 37.4 MCV (80-95) fL 104.5 H MCH (27.0-33.0) pg 29.9 MCHC (32.0-36.0) % 28.6 L RDW (11.7-14.6) % 14.4 Plt Count (130-400) 10^3/uL 360 MPV (8.0-11.0) fL 8.8 Immature Gran % 1.5 Neutrophils % 74.8 Lymphocytes % 15.6 Monocytes % 6.9 Eosinophils % 0.9 Basophils % 0.3 Nucleated RBC % % 0 Absolute Neutrophils (1.2-6.7) 10^3/uL 9.57 H Absolute Lymphocytes (1.2-3.4) 10^3/uL 2.00 Absolute Monocytes (0.1-0.8) 10^3/uL 0.88 H Absolute Eosinophils (0.0-0.7) 10^3/uL 0.12 Absolute Basophils (0.0-0.2) 10^3/uL 0.04 ABG Sample Site ABG pH (7.35-7.45) ABG pCO2 (35-45) mmHg ABG pO2 (80-105) mmHg ABG HCO3 (22-26) mmol/L ABG Total CO2 (23-27) mmol/L ABG O2 Saturation (95-98) % ABG Base Excess (-2-3) mmol/L VBG Lactate (0.6-1.4) mmol/L Oxygen Liter Flow L Sodium (136-145) mmol/L Potassium (3.5-5.1) mmol/L Chloride (98-107) mmol/L Carbon Dioxide (21.0-32.0) mmol/L Anion Gap (3-11) mmol/L BUN (7-18) mg/dL Creatinine (0.55-1.02) mg/dL Estimated GFR/1.73 m2 (mL/min/1.73m2) Glucose (74-106) mg/dL Calcium (8.5-10.1) mg/dL Magnesium (1.8-2.4) mg/dL Total Bilirubin (0.2-1.0) mg/dL AST (15-37) U/L ALT (14-59) U/L Alkaline Phosphatase (46-116) U/L Troponin I (<0.06) ng/mL Total Protein (6.4-8.2) g/dL Albumin (3.4-5.0) g/dL Procalcitonin ng/mL < 0.1 COVID-19 Source Nasal/Nares SARS-CoV-2 (PCR) (Negative) Negative ECG Data Attestation: I personally reviewed and interpreted this ECG (s) as follows: Interpretation: Rate of 88, sinus, no acute ST elevation or depression. IN 198. QRS 107. QTc 501 HPI General Date/Time Provider Initiated Documentation: 01/13/21 09:13 . HPI Narrative: Patient is a 70-year-old female with a history of morbid obesity, chronic hypoxic hypercapnic respiratory failure on 3 L nasal cannula at baseline due to COPD, OHS, pulmonary hypertension, Afib on eliquis, IDDM2, hypertension presents from the [facility] for increasing oxygen requirements with request for BiPAP. Dr. Shetty called the ED stating she was notified by the nursing staff that patient is needing increasing nasal cannula oxygen requirement and her oxygen saturation is remaining in the 80s. Her her recent palliative care visit, it was thought reasonable to keep her 84 to 88% due to her hypercapnea and to increase to 4L nasal cannula if needed. She is being sent for potential for needing BiPAP for her hypercapnia. Patient does admit to increasing shortness of breath. She denies any fever or chest pain. Related Data Home Medications Medication Instructions Recorded Confirmed Eliquis 5 mg PO BID 01/14/20 01/13/21 acetaminophen [Tylenol] 650 mg PO Q4H PRN 01/14/20 01/13/21 albuterol sulfate 2 inh INHALATION .Q4H,PRN PRN 01/14/20 01/13/21 aspirin 81 mg PO QAM 01/14/20 01/13/21 budesonide-formoterol [Symbicort] 2 inh INHALATION BID 01/14/20 01/13/21 cyanocobalamin (vitamin B-12) 1,000 mcg PO QAM 01/14/20 01/13/21 [Vitamin B-12] diltiazem HCl [DILT-XR] 240 mg PO QAM 01/14/20 01/13/21 epinephrine 0.3 mg IM PRN PRN 01/14/20 01/13/21 folic acid 1 mg PO QAM 01/14/20 01/13/21 tramadol 50 mg PO QID PRN 01/14/20 01/13/21 T Gel Shampoo 1 applic TOPICAL .Sunday03/07/20 01/12/21 ferrous sulfate 325 mg PO BID 03/07/20 01/13/21 amiodarone 200 mg tablet 200 mg PO DAILY tab 12/02/20 01/13/21 citalopram 40 mg tablet 20 mg PO QAM tab 12/02/20 01/12/21 furosemide 20 mg tablet 80 mg PO BID tab 12/02/20 01/13/21 pantoprazole 20 mg tablet,delayed 20 mg PO BID tab 12/02/20 01/13/21 release potassium chloride 10 meq PO DAILY AM 12/12/20 01/13/21 tolterodine 4 mg PO DAILY AM 12/12/20 01/13/21 [place] Saline Gel 1 spray INTRANASAL DAILY 12/14/20 01/12/21 Spiriva with HandiHaler 1 cap INHALATION DAILY 12/14/20 01/13/21 ascorbic acid (vitamin C) [Vitamin 500 mg PO BID 12/14/20 01/13/21 C] cholecalciferol (vitamin D3) 50,000 unit PO .1X/WEEK 12/14/20 01/13/21 gabapentin 300 mg PO HS 12/14/20 01/13/21 Lantus Solostar U-100 Insulin 20 unit SUBCUT HS #0 ml 12/16/20 01/12/21 insulin aspart U-100 1 sliding scale dose SUBCUT 01/02/21 01/13/21 USEASDIRECTD levothyroxine 100 mcg PO DAILY 01/02/21 01/13/21 polyethylene glycol 3350 [Miralax] 17 g PO DAILY 01/02/21 01/13/21 Trulicity 0.75 mg SUBCUT QWEEK 01/06/21 01/12/21 Trulicity 1.5 mg SUBCUT QWEEK 01/06/21 01/13/21 metformin 750 mg PO BID 01/06/21 01/13/21 triamcinolone acetonide 0 applic TOPICAL DIRECTED 01/06/21 01/12/21 Previous Rx's Medication Instructions Recorded Lantus Solostar U-100 Insulin 20 unit SUBCUT HS #0 ml 12/16/20 Allergies Allergy/AdvReac Type Severity Reaction Status Date / Time bee venom protein (honey bee) Allergy Unknown Verified 01/13/21 09:20 Penicillins Allergy Unknown Verified 01/13/21 09:20 strawberry Allergy Unknown Verified 01/13/21 09:20 General KENDRICK: 2 Review of Systems All systems reviewed & are unremarkable except as noted in HPI and below Constitutional Constitutional: Reports as per HPI, Denies chills and Denies fever(s) Eyes Eyes: Denies blurry vision ENT Ears, Nose, Mouth, and Throat: Denies dizziness, Denies sore throat and Denies throat swelling Cardiovascular Cardiovascular: Denies chest pain and Reports dyspnea Respiratory Respiratory: Denies cough and Reports dyspnea Gastrointestinal Gastrointestinal: Denies abdominal pain, Denies diarrhea and Denies vomiting Genitourinary Genitourinary: Denies hematuria and Denies dysuria Musculoskeletal Musculoskeletal: Denies back pain and Denies numbness Integumentary/Breasts Skin/Breast: Denies lesions and Denies rash Neurologic Neurologic: Denies dizziness, Denies localized weakness and Denies numbness Allergic/Immunologic Allergic/Immunologic: Denies throat swelling [facility] Medical History Acute on chronic respiratory failure with hypoxia and hypercapnia Altered mental status Arthritis Atrial fibrillation Cellulitis bilateral lower extremities Cellulitis CHF (congestive heart failure) Chronic respiratory failure with hypoxia COPD (chronic obstructive pulmonary disease) Diabetes mellitus Family history unobtainable due to patient's condition GERD (gastroesophageal reflux disease) Hypercholesterolemia Mood disorder Muscle weakness (generalized) Obesity Plaque psoriasis Pneumonia Streptococcal bacteremia Toxic metabolic encephalopathy Type 2 diabetes mellitus Surgical History H/O hand surgery right index finger removal of tendon sheath ganglion H/O: hysterectomy History of carpal tunnel surgery of right wrist History of excision of lesion abdominal cyst removed S/P appendectomy Family History Father Heart disease 2 [place], at 62 Mother Heart disease Social History Smoking/Tobacco Use Status: Former Tobacco Use Smoking risk assessment performed?: Yes Alcohol Intake: never Drug use: Never Substance use type: does not use Do you feel safe at home: Yes Do you feel safe in your relationship?: Yes Exam Const General: cooperative and no acute distress Nutritional Appearance: obese morbidly obese Orientation: alert, awake and oriented x3 HENMT Head: normal to inspection Face and sinus: normal facial exam Eyes General: appearance normal, both eyes and all related structures Pupils: PERRL EOM: EOM intact bilaterally Neck Neck: normal visual inspection and No submandibular swelling Lymphatic: no lymphadenopathy noted Chest Chest: normal inspection of the chest Resp Effort & Inspection: normal respiratory effort and able to speak in complete sen tences Auscultation: diminished lung sounds on the left in the upper lung askew and wheezes scattered wheezes Cardio Rate: regular rate Rhythm: regular rhythm GI Inspection: normal to inspection and obesity Palpation: soft, not firm, not rigid and nontender Auscultation: hypoactive bowel sounds Skin General skin exam: no rashes or lesions noted Neuro General: patient alert, patient awake and patient oriented x3 Cognition: normal cognition Speech: speech normal Motor: muscle tone normal throughout Sensory Exam: no sensory deficits noted Extrem General: normal to inspection, full ROM, capillary refill normal, no calf tenderness bilaterally and no edema Psych Appearance: grossly normal Mental Status: mental status grossly normal Speech and Movement: speech and movement normal Affect: normal affect Critical Care Time Critical Care Time Critical Care Time: Yes Total Critical Care Time: 30 Attestation: I spent 30 minutes of critical care time with this patient. This does not include time spent on separately reported billable procedures.
[2021-01-13 09:07] LABS: HCO3 53 mmol/L (22-26); pH 7.38 (7.35-7.45); pO2 77 mmHg (80-105); sO2 95 % (95-98); tCO2 50 mmol/L (23-27)
[2021-01-13 09:09] LABS: pCO2 91 mmHg (35-45)
[2021-01-13 09:10] LABS: BE > 15 mmol/L (-2-3); FIO2L 5 L; Site Left Radial
[2021-01-13 09:13] LABS: Source Nasal/Nares
--- NOTE | 2021-01-13 09:15 | DI.RAD_ITS ---
Exam(s) XR PORTABLE CHEST AP EXAM: XR PORTABLE CHEST AP CLINICAL HISTORY: shortness of breath, r/o acute disease. TECHNIQUE: 2D digital imaging was performed. COMPARISON: CR,XR XR CHEST 2V PA LATERAL from 01/02/2021 FINDINGS: Study is limited by body habitus and patient being rotated towards the left side.. Cardiomegaly is again noted. Mediastinum appears unchanged. There are now air bronchograms in the left lower lobe retrocardiac region, not previously present, co nsistent with infiltrate. Also persistent infiltrate throughout the right lung. No large pleural ef fusions evident. IMPRESSION: Further deterioration when compared to 01/02/2021.If clinically indicated further study with CT scan can be performed, given the limitations of this portable view. DATA REPOSITORY: RADIATION DOSE DELIVERED: All CT scans at this facility use at least one of these dose optimization techniques: automated exposure control; mA and/or kV adjustment per patient size (includes targeted e xams where dose is matched to clinical indication); or iterative reconstruction.
[2021-01-13 09:21] LABS: Abs Immature Grans 0.19 10^3/uL (0.0-0.06); Absolute Basophil Count 0.04 10^3/uL (0.0-0.2); Absolute Monocyte Count 0.88 10^3/uL (0.1-0.8); Basophils % 0.3; Eosinophils % 0.9; HCT 37.4 % (36.0-46.0); HGB 10.7 g/dL (11.2-15.7); Immature Grans % 1.5; Lactate 1.1 mmol/L (0.6-1.4); Lymphocytes % 15.6; MCH 29.9 pg (27.0-33.0); MCHC 28.6 % (32.0-36.0); MCV 104.5 fL (80-95); MPV 8.8 fL (8.0-11.0); Monocytes % 6.9; Neutrophils % 74.8; Nucleated RBC 0 %; Platelet Count 360 10^3/uL (130-400); RBC 3.58 10^6/uL (3.93-5.22); RDW 14.4 % (11.7-14.6); RDW-SD 55.3 fL; WBC 12.79 10^3/uL (4.4-10.8)
[2021-01-13 09:22] LABS: Absolute Eosinophil Count 0.12 10^3/uL (0.0-0.7); Absolute Neutrophil Count 9.57 10^3/uL (1.2-6.7)
[2021-01-13] MEDS: Albuterol/Ipratropium 3 ML UPD VIAL UPD ×4 (09:31→23:44)
[2021-01-13] MEDS: Albuterol 2.5 MG/3 ML INH SOLN VIAL 5 MG UPD (09:32)
[2021-01-13 09:39] LABS: ALT 16 U/L (14-59); AST 13 U/L (15-37); Albumin 2.6 g/dL (3.4-5.0); Alkaline Phosphatase 85 U/L (46-116); Anion Gap 1.99999 mmol/L (3-11); BUN 11 mg/dL (7-18); Bilirubin, Total 0.4 mg/dL (0.2-1.0); CO2 > 45.0 mmol/L (21.0-32.0); CREATININE 0.8 mg/dL (0.55-1.02); Calcium 9.3 mg/dL (8.5-10.1); Chloride 93 mmol/L (98-107); Glucose 223 mg/dL (74-106); Magnesium 1.8 mg/dL (1.8-2.4); Potassium 3.5 mmol/L (3.5-5.1); Sodium 140 mmol/L (136-145); Total Protein 7.4 g/dL (6.4-8.2)
[2021-01-13 09:40] LABS: Troponin I < 0.05 ng/mL (<0.06)
[2021-01-13] MEDS: methylPREDNISolone SUCC 125 MG VIAL IVP (09:40)
[2021-01-13 09:55] LABS: Procalcitonin < 0.1 ng/mL
[2021-01-13 10:27] LABS: COVID-19 PCR Negative (Negative)
[2021-01-13] MEDS: cefTRIAXone 2 GM/50 ML BAG IVPB (12:12)
[2021-01-13 13:02] LABS: NT-proBNP 228 pg/mL (<300)
[2021-01-13] MEDS: VANCOMYCIN/WATER (PEG) 2 GM/400 ML BAG IV (13:32)
[2021-01-13] MEDS: Normal Saline 500 ML 30 ML IV (13:33)
[2021-01-13] MEDS: Normal Saline Flush 10 ML SYR IVP ×4 (13:34→23:46)
[2021-01-13 14:26] LABS: Bilirubin Negative (Negative); Blood Trace-intact (Negative); Clarity Clear (Clear); Glucose Negative (Negative); Ketones Negative (Negative); Leukocyte Esterase Negative (Negative); Nitrite Negative (Negative); Specific Gravity >= 1.030 (1.005-1.025); Urobilinogen 0.2 EU/dL (Up TO 0.2); WBC Negative HPF (0-5); pH 6.5 (5-8)
[2021-01-13 14:27] LABS: Bacteria Negative HPF (Negative); C & S Indicated? No; Casts 0-2 Hyaline LPF (Negative); Crystals Negative HPF (Negative); Epithelial Cells Moderate HPF (Negative); Mucus Negative (Negative)
--- NOTE | 2021-01-13 14:52 | HPE_ITS ---
Date of service: 01/13/21 Time of Service: 14:53 Assessment and Plan Assessment and plan (1) HCAP (healthcare-associated pneumonia): Status: Acute Assessment and plan: Attempt to obtain sputum culture., Check urine for strep antigen, check Legionella studies, check mycoplasma studies, continue broad-spectrum antibiotics with ceftriaxone and doxycycline and vancomycin. Titrate her oxygen to maintain SPO2 of 88 to 92%. Patient has appt. w/ sleep lab in the next week according to RT. Patient needs to be qualified for BIPAP for treatment of her COPD as well as for hypoventilation syndrome d/t her morbid obesity as well as probable sleep apnea. Encourage use of IS and acapella. Will treat w/ bronchodilators and corticosteroids (2) Acute and chronic respiratory failure with hypercapnia: Status: Acute Assessment and plan: as above. Hopefully she can get qualified for BIPAP. She would benefit from a Trilogy device. (3) MRSA (methicillin resistant staph aureus) culture positive: Status: Acute Assessment and plan: treat w/ Vancomycin; add bactroban to reduce colonization of her upper airway (nares) (4) Atrial fibrillation: Status: Chronic Assessment and plan: cont. Cardizem and Eliquis Qualifiers: Atrial fibrillation type: unspecified Qualified Code(s): I48.91 - Unspecified atrial fibrillation (5) Type 2 diabetes mellitus: Status: Chronic Assessment and plan: basal/bolus insulin w/ CHO coverage and SSI for coverage of excess glucose levels. cardiac/diabetic diet. Qualifiers: Diabetes mellitus terminal carman insulin use: without [place] [facility] use Diabetes mellitus complication status: without complication Qualified Code(s): E11.9 - Type 2 diabetes mellitus without complications History of Present Illness History of Present Illness Chief Complaint: dyspnea, hypoxemia Narrative: 70-year-old female resident of [facility] in [facility] who has a history of hypercapnic and hypoxemic respiratory failure secondary to COPD (normally on 2 to 3 LPM O2 per NC), pulmonary hypertension, probable sleep apnea, who also has comorbidities including atrial fibrillation anticoagulated with Eliquis, type 2 diabetes mellitus on insulin, essential hypertension who has had multiple admissions to [facility] for HCAP and COPD exacerbation w/ hypercapneic respiratory failure. She was hospitalized 12/16 and again on 01/02. She has been found to be MRSA positive per screening. During her last admission she wsa treated w/ cefepime and vancomycin from 01/02 through 01/07 and her respiratory failure responded to BIPAP. She now presents from the [facility] to the ED because of recurrent hypercapneic and hypoxemic respiratory failure. At the [facility] today, the patient was on 5 LPM oxygen and her SPO2 was reportedly in the 80's% and her attending, Dr. Shetty spoke w/ the ED provider Dr. Marv escalona and indicated that the patient needs BIPAP. On arrival to the ED the patient's SPO2 was 97%, her oxygen was titrated down to 4 LPM and her SPO2 remained in the mid 90's%. Per Dr. Davis discussion w/ the patient, she is a DNR/DNI. Workup in the ED included CXR that demonstrated cardiomegaly, air bronchograms in the left lower lobe, not previously seen and a persistent infiltrate throughout the right lung. Labs were remarkable for WBC 14,000, stable chronic anemia of Hb11 gm. VBC while on 5 L/min per nasal cannula, pH 7.38, PCO2 91 mm, PO2 77 mm, bicarbonate 53, base excess greater than 15. Repeat ABG was ordered to be done while on BiPAP but was unable to be obtained. CMP was remarkable for carbon dioxide level greater than 45, LFTs were normal and troponin was normal. Procalcitonin was also normal at less than 0.1. SARS-CoV-2 PCR was negative. While in the ED, the patient was placed on BIPAP and became more alert and responsive and was able to answer questions for Dr. Davis, she was then switched to nasal cannula and admitted to medical/surgical floor for further treatment of her pneumonia, and COPD. He was started on ceftriaxone and doxycycline and because of her previous MRSA status vancomycin was added to the regimen. Review of Systems All systems reviewed & are unremarkable except as noted in HPI and below [facility] Medical History Acute on chronic respiratory failure with hypoxia and hypercapnia Altered mental status Arthritis Atrial fibrillation Cellulitis bilateral lower extremities Cellulitis CHF (congestive heart failure) Chronic respiratory failure with hypoxia COPD (chronic obstructive pulmonary disease) Diabetes mellitus Family history unobtainable due to patient's condition GERD (gastroesophageal reflux disease) Hypercholesterolemia Mood disorder Muscle weakness (generalized) Obesity Plaque psoriasis Pneumonia Streptococcal bacteremia Toxic metabolic encephalopathy Type 2 diabetes mellitus Surgical History H/O hand surgery right index finger removal of tendon sheath ganglion H/O: hysterectomy History of carpal tunnel surgery of right wrist History of excision of lesion abdominal cyst removed S/P appendectomy Family History Father Heart disease 2 [place], at 62 Mother Heart disease Social History Smoking/Tobacco Use Status: Former Tobacco Use Smoking risk assessment performed?: Yes Alcohol Intake: never Drug use: Never Substance use type: does not use Do you feel safe at home: Yes Do you feel safe in your relationship?: Yes Meds Allergies and Home Medications Allergies Allergy/AdvReac Type Severity Reaction Status Date / Time bee venom protein (honey bee) Allergy Unknown Verified 01/13/21 09:20 Penicillins Allergy Unknown Verified 01/13/21 09:20 strawberry Allergy Unknown Verified 01/13/21 09:20 Home Medications Medication Instructions Recorded Confirmed Type Eliquis 5 mg PO BID 01/14/20 01/13/21 History acetaminophen [Tylenol] 650 mg PO Q4H PRN 01/14/20 01/13/21 History albuterol sulfate 2 inh INHALATION .Q4H,PRN PRN 01/14/20 01/13/21 History aspirin 81 mg PO QAM 01/14/20 01/13/21 History budesonide-formoterol [Symbicort] 2 inh INHALATION BID 01/14/20 01/13/21 History cyanocobalamin (vitamin B-12) 1,000 mcg PO QAM 01/14/20 01/13/21 History [Vitamin B-12] diltiazem HCl [DILT-XR] 240 mg PO QAM 01/14/20 01/13/21 History epinephrine 0.3 mg IM PRN PRN 01/14/20 01/13/21 History folic acid 1 mg PO QAM 01/14/20 01/13/21 History tramadol 50 mg PO QID PRN 01/14/20 01/13/21 History T Gel Shampoo 1 applic TOPICAL .Sunday03/07/20 01/12/21 History ferrous sulfate 325 mg PO BID 03/07/20 01/13/21 History amiodarone 200 mg tablet 200 mg PO DAILY tab 12/02/20 01/13/21 History citalopram 40 mg tablet 20 mg PO QAM tab 12/02/20 01/12/21 History furosemide 20 mg tablet 80 mg PO BID tab 12/02/20 01/13/21 History pantoprazole 20 mg tablet,delayed 20 mg PO BID tab 12/02/20 01/13/21 History release potassium chloride 10 meq PO DAILY AM 12/12/20 01/13/21 History tolterodine 4 mg PO DAILY AM 12/12/20 01/13/21 History [place] Saline Gel 1 spray INTRANASAL DAILY 12/14/20 01/12/21 History Spiriva with HandiHaler 1 cap INHALATION DAILY 12/14/20 01/13/21 History ascorbic acid (vitamin C) [Vitamin 500 mg PO BID 12/14/20 01/13/21 History C] cholecalciferol (vitamin D3) 50,000 unit PO .1X/WEEK 12/14/20 01/13/21 History gabapentin 300 mg PO HS 12/14/20 01/13/21 History Lantus Solostar U-100 Insulin 20 unit SUBCUT HS #0 ml 12/16/20 01/12/21 Rx insulin aspart U-100 1 sliding scale dose SUBCUT 01/02/21 01/13/21 History USEASDIRECTD levothyroxine 100 mcg PO DAILY 01/02/21 01/13/21 History polyethylene glycol 3350 [Miralax] 17 g PO DAILY 01/02/21 01/13/21 History Trulicity 0.75 mg SUBCUT QWEEK 01/06/21 01/12/21 History Trulicity 1.5 mg SUBCUT QWEEK 01/06/21 01/13/21 History metformin 750 mg PO BID 01/06/21 01/13/21 History triamcinolone acetonide 0 applic TOPICAL DIRECTED 01/06/21 01/12/21 History Exam Narrative Exam Narrative: Morbidly obese white female who is somnolent but arousable. She denies any chest pain or pressure. She admits to dyspnea and a nonproductive cough. HEENT is unremarkable. Neck is obese and difficult to discern any JVD. Carotid pulses are normal. No adenopathy. Lungs with diffuse expiratory wheezing and bibasilar rales with diminished breath sounds over the right lung base Heart is irregularly irregular at a controlled rate Abdomen is morbidly obese soft but nontender Lower extremities are very edematous with 3+ pitting edema with palpable pedal pulses Neuro: No focal motor deficits. No facial asymmetry and no dysarthric speech Results Labs Result diagrams: 01/14/21 06:10 01/14/21 06:10 Labs: Laboratory Results - last 24 hr 01/13/21 01/13/21 01/13/21 09:03 09:08 09:08 WBC RBC Hgb Hct MCV MCH MCHC RDW Plt Count MPV Immature Gran % Neutrophils % Lymphocytes % Monocytes % Eosinophils % Basophils % Nucleated RBC % Absolute Neutrophils Absolute Lymphocytes Absolute Monocytes Absolute Eosinophils Absolute Basophils ABG Sample Site Left Radial ABG pH 7.38 ABG pCO2 91 H* ABG pO2 77 L ABG HCO3 53 H ABG Total CO2 50 H ABG O2 Saturation 95 ABG Base Excess > 15 H VBG Lactate 1.1 Oxygen Liter Flow 5 Sodium 140 Potassium 3.5 Chloride 93 L Carbon Dioxide > 45.0 H Anion Gap 1.62085 L BUN 11 Creatinine 0.8 Estimated GFR/1.73 m2 >= 60.00 Glucose 223 H Calcium 9.3 Magnesium 1.8 Total Bilirubin 0.4 AST 13 L ALT 16 Alkaline Phosphatase 85 Troponin I < 0.05 NT-Pro-B Natriuret Pep 228 Total Protein 7.4 Albumin 2.6 L Procalcitonin Urine Color Urine Clarity Urine pH Ur Specific [place] Urine Protein Urine Ketones Urine Blood Urine Nitrite Urine Bilirubin Urine Urobilinogen Ur Leukocyte Esterase Urine RBC Urine WBC Ur Epithelial Cells Urine Crystals Urine Bacteria Urine Casts Urine Mucus Ur Culture Indicated? Urine Glucose COVID-19 Source SARS-CoV-2 (PCR) 01/13/21 01/13/21 01/13/21 09:08 09:08 09:08 WBC 12.79 H RBC 3.58 L Hgb 10.7 L Hct 37.4 MCV 104.5 H MCH 29.9 MCHC 28.6 L RDW 14.4 Plt Count 360 MPV 8.8 Immature Gran % 1.5 Neutrophils % 74.8 Lymphocytes % 15.6 Monocytes % 6.9 Eosinophils % 0.9 Basophils % 0.3 Nucleated RBC % 0 Absolute Neutrophils 9.57 H Absolute Lymphocytes 2.00 Absolute Monocytes 0.88 H Absolute Eosinophils 0.12 Absolute Basophils 0.04 ABG Sample Site ABG pH ABG pCO2 ABG pO2 ABG HCO3 ABG Total CO2 ABG O2 Saturation ABG Base Excess VBG Lactate Oxygen Liter Flow Sodium Potassium Chloride Carbon Dioxide Anion Gap BUN Creatinine Estimated GFR/1.73 m2 Glucose Calcium Magnesium Total Bilirubin AST ALT Alkaline Phosphatase Troponin I NT-Pro-B Natriuret Pep Total Protein Albumin Procalcitonin < 0.1 Urine Color Urine Clarity Urine pH Ur Specific [place] Urine Protein Urine Ketones Urine Blood Urine Nitrite Urine Bilirubin Urine Urobilinogen Ur Leukocyte Esterase Urine RBC Urine WBC Ur Epithelial Cells Urine Crystals Urine Bacteria Urine Casts Urine Mucus Ur Culture Indicated? Urine Glucose COVID-19 Source Nasal/Nares SARS-CoV-2 (PCR) Negative 01/13/21 13:55 WBC RBC Hgb Hct MCV MCH MCHC RDW Plt Count MPV Immature Gran % Neutrophils % Lymphocytes % Monocytes % Eosinophils % Basophils % Nucleated RBC % Absolute Neutrophils Absolute Lymphocytes Absolute Monocytes Absolute Eosinophils Absolute Basophils ABG Sample Site ABG pH ABG pCO2 ABG pO2 ABG HCO3 ABG Total CO2 ABG O2 Saturation ABG Base Excess VBG Lactate Oxygen Liter Flow Sodium Potassium Chloride Carbon Dioxide Anion Gap BUN Creatinine Estimated GFR/1.73 m2 Glucose Calcium Magnesium Total Bilirubin AST ALT Alkaline Phosphatase Troponin I NT-Pro-B Natriuret Pep Total Protein Albumin Procalcitonin Urine Color Yellow Urine Clarity Clear Urine pH 6.5 Ur Specific [place] >= 1.030 H Urine Protein 30 H Urine Ketones Negative Urine Blood Trace-intact H Urine Nitrite Negative Urine Bilirubin Negative Urine Urobilinogen 0.2 Ur Leukocyte Esterase Negative Urine RBC 5-10 H Urine WBC Negative Ur Epithelial Cells Moderate Urine Crystals Negative Urine Bacteria Negative Urine Casts 0-2 Hyaline Urine Mucus Negative Ur Culture Indicated? No Urine Glucose Negative COVID-19 Source SARS-CoV-2 (PCR) Last Vital Signs Temp 36.7 C 01/13/21 13:05 Pulse 88 01/13/21 14:13 Resp 19 01/13/21 14:13 BP 102/64 01/13/21 13:05 Pulse Ox 94 01/13/21 14:13
[2021-01-13] MEDS: Furosemide 100 MG/10 ML VIAL 80 MG IVP (16:29)
[2021-01-13] MEDS: methylPREDNISolone SUCC 125 MG VIAL 80 MG IVP ×2 (16:30→23:44)
[2021-01-13] MEDS: DOXYCYCLINE 100 MG in Normal Saline 100 ML IVPB (16:31)
[2021-01-13] MEDS: Insulin Aspart 300 UNITS/3 ML PEN SC ×2 (17:38→23:44)
--- NOTE | 2021-01-13 18:18 | W.PALLCONSUL ---
Date of service: 01/13/21 Time of Service: 18:19 History of Present Illness History of Present Illness Chief Complaint: hypoxia Narrative: From H and P History of Present Illness Chief Complaint: dyspnea, hypoxemia Narrative: 70-year-old female resident of the [facility] in [facility] who has a history of hypercapnic and hypoxemic respiratory failure secondary to COPD (normally on 2 to 3 LPM O2 per NC), pulmonary hypertension, probable sleep apnea, who also has comorbidities including atrial fibrillation anticoagulated with Eliquis, type 2 diabetes mellitus on insulin, essential hypertension who has had multiple admissions to [facility] for HCAP and COPD exacerbation w/ hypercapneic respiratory failure. She was hospitalized 12/16 and again on 01/02. She has been found to be MRSA positive per screening. During her last admission she wsa treated w/ cefepime and vancomycin from 01/02 through 01/07 and her respiratory failure responded to BIPAP. She now presents from the [facility] to the ED because of recurrent hypercapneic and hypoxemic respiratory failure. At the [facility] today, the patient was on 5 LPM oxygen and her SPO2 was reportedly in the 80's% and her attending, Dr. Shetty spoke w/ the ED provider Dr. Davis and indicated that the patient needs BIPAP. On arrival to the ED the patient's SPO2 was 97%, her oxygen was titrated down to 4 LPM and her SPO2 remained in the mid 90's%. Per Dr. Davis discussion w/ the patient, she is a DNR/DNI. Workup in the ED included CXR that demonstrated cardiomegaly, air bronchograms in the left lower lobe, not previously seen and a persistent infiltrate throughout the right lung. Labs were remarkable for WBC 14,000, stable chronic anemia of Hb11 gm. VBC while on 5 L/min per nasal cannula, pH 7.38, PCO2 91 mm, PO2 77 mm, bicarbonate 53, base excess greater than 15. Repeat ABG was ordered to be done while on BiPAP but was unable to be obtained. CMP was remarkable for carbon dioxide level greater than 45, LFTs were normal and troponin was normal. Procalcitonin was also normal at less than 0.1. SARS-CoV-2 PCR was negative. While in the ED, the patient was placed on BIPAP and became more alert and responsive and was able to answer questions for Dr. Davis, she was then switched to nasal cannula and admitted to medical/surgical floor for further treatment of her pneumonia, and COPD. He was started on ceftriaxone and doxycycline and because of her previous MRSA status vancomycin was added to the regimen. Interim Hx: I saw Marlen yesterday at the [facility]. I was called by the nurse practitioner Yolanda this morning reporting severe hypoxia and somnolence. Marlen is a known CO2 retainer. Her comorbidities include morbid obesity, diabetes, COPD. She does clear with BiPAP, unfortunately this is not yet available to her at the [facility]. Due to her somnolence and inability to gain control over her oxygen saturations, she was sent to the emergency room and then admitted for further care. I am seeing Marlen in her room this afternoon. I have had discussions with AWILDA Guerrero at the [facility] and also Dr. Davis. Marlen states she is feeling much better. She presently is off the BiPAP but the plan is for her to have another ABG which is not yet been able to be obtained. She understands and looks forward to going back to the [facility] once her condition has stabilized Consults Consult date: 01/13/21 Requesting physician: Isabel Davis Assessment and Plan Assessment and plan (1) Acute and chronic respiratory failure with hypercapnia: Status: Acute (2) HCAP (healthcare-associated pneumonia): Status: Acute (3) Morbid obesity: Status: Acute (4) Palliative care patient: Status: Acute Assessment and plan: She is doing well off the bipap at this time. Hopefully an ABG will be obtained to determine her degree of retention when she is feeling good. It would be beneficial if there was a way to expedite getting her a Bipap machine. Hopefully a Pulmonary Consult can be obtained during this admission Regarding her pneumonia?hospitalists are investigating this further and administering antibiotics. Additionally she will get steroids etc. Nursing will be applying Adalberto bandages to her legs to help with the edema We will continue to cover Marlen, but the most important thing is for Marlen to be able to ventilate which will require BiPAP. CODE STATUS I have spoken to her about this last February, yesterday at the [facility] and today. She is DNR/DNI. Review of Systems Narrative: Chronic shortness of breath, no recent chest pain, some abdominal discomfort but not pain, difficult ambulation secondary to elevated BMI, diabetes [facility] Medical History Acute on chronic respiratory failure with hypoxia and hypercapnia Altered mental status Arthritis Atrial fibrillation Cellulitis bilateral lower extremities Cellulitis CHF (congestive heart failure) Chronic respiratory failure with hypoxia COPD (chronic obstructive pulmonary disease) Diabetes mellitus Family history unobtainable due to patient's condition GERD (gastroesophageal reflux disease) Hypercholesterolemia Mood disorder Muscle weakness (generalized) Obesity Plaque psoriasis Pneumonia Streptococcal bacteremia Toxic metabolic encephalopathy Type 2 diabetes mellitus Surgical History H/O hand surgery right index finger removal of tendon sheath ganglion H/O: hysterectomy History of carpal tunnel surgery of right wrist History of excision of lesion abdominal cyst removed S/P appendectomy Family History Father Heart disease 2 [place], at 62 Mother Heart disease Social History Smoking/Tobacco Use Status: Former Tobacco Use Smoking risk assessment performed?: Yes Alcohol Intake: never Drug use: Never Substance use type: does not use Do you feel safe at home: Yes Do you feel safe in your relationship?: Yes Exam Narrative Exam Narrative: Marlen is sitting in a chair. Her eyes look bright and awake. This is in sharp contrast to yesterday when she was fairly sleepy when I saw her at the [facility]. She is able to relate her history, but did not have full insight into how sick she was. She herself did not feel that she was that sick and needed to come to the hospital. She has little air movement in her lung askew. Her heart is regular. Her abdomen is nontender with good bowel sounds. She does have significant edema in both legs. Results Last Vital Signs Temp 98.2 F 01/13/21 15:59 Pulse 90 01/13/21 15:59 Resp 20 01/13/21 15:59 BP 111/68 01/13/21 15:59 Pulse Ox 91 L 01/13/21 15:59 Labs Result diagrams: 01/15/21 06:30 01/15/21 06:30 Labs: Laboratory Results - last 24 hr 11/04/21 11/04/21 11/04/21 09:03 09:08 09:08 WBC RBC Hgb Hct MCV MCH MCHC RDW Plt Count MPV Immature Gran % Neutrophils % Lymphocytes % Monocytes % Eosinophils % Basophils % Nucleated RBC % Absolute Neutrophils Absolute Lymphocytes Absolute Monocytes Absolute Eosinophils Absolute Basophils ABG Sample Site Left Radial ABG pH 7.38 ABG pCO2 91 H* ABG pO2 77 L ABG HCO3 53 H ABG Total CO2 50 H ABG O2 Saturation 95 ABG Base Excess > 15 H VBG Lactate 1.1 Oxygen Liter Flow 5 Sodium 140 Potassium 3.5 Chloride 93 L Carbon Dioxide > 45.0 H Anion Gap 1.68778 L BUN 11 Creatinine 0.8 Estimated GFR/1.73 m2 >= 60.00 Glucose 223 H Calcium 9.3 Magnesium 1.8 Total Bilirubin 0.4 AST 13 L ALT 16 Alkaline Phosphatase 85 Troponin I < 0.05 NT-Pro-B Natriuret Pep 228 Total Protein 7.4 Albumin 2.6 L Procalcitonin Urine Color Urine Clarity Urine pH Ur Specific [place] Urine Protein Urine Ketones Urine Blood Urine Nitrite Urine Bilirubin Urine Urobilinogen Ur Leukocyte Esterase Urine RBC Urine WBC Ur Epithelial Cells Urine Crystals Urine Bacteria Urine Casts Urine Mucus Ur Culture Indicated? Urine Glucose COVID-19 Source SARS-CoV-2 (PCR) 01/13/21 01/13/21 01/13/21 09:08 09:08 09:08 WBC 12.79 H RBC 3.58 L Hgb 10.7 L Hct 37.4 MCV 104.5 H MCH 29.9 MCHC 28.6 L RDW 14.4 Plt Count 360 MPV 8.8 Immature Gran % 1.5 Neutrophils % 74.8 Lymphocytes % 15.6 Monocytes % 6.9 Eosinophils % 0.9 Basophils % 0.3 Nucleated RBC % 0 Absolute Neutrophils 9.57 H Absolute Lymphocytes 2.00 Absolute Monocytes 0.88 H Absolute Eosinophils 0.12 Absolute Basophils 0.04 ABG Sample Site ABG pH ABG pCO2 ABG pO2 ABG HCO3 ABG Total CO2 ABG O2 Saturation ABG Base Excess VBG Lactate Oxygen Liter Flow Sodium Potassium Chloride Carbon Dioxide Anion Gap BUN Creatinine Estimated GFR/1.73 m2 Glucose Calcium Magnesium Total Bilirubin AST ALT Alkaline Phosphatase Troponin I NT-Pro-B Natriuret Pep Total Protein Albumin Procalcitonin < 0.1 Urine Color Urine Clarity Urine pH Ur Specific [place] Urine Protein Urine Ketones Urine Blood Urine Nitrite Urine Bilirubin Urine Urobilinogen Ur Leukocyte Esterase Urine RBC Urine WBC Ur Epithelial Cells Urine Crystals Urine Bacteria Urine Casts Urine Mucus Ur Culture Indicated? Urine Glucose COVID-19 Source Nasal/Nares SARS-CoV-2 (PCR) Negative 01/13/21 13:55 WBC RBC Hgb Hct MCV MCH MCHC RDW Plt Count MPV Immature Gran % Neutrophils % Lymphocytes % Monocytes % Eosinophils % Basophils % Nucleated RBC % Absolute Neutrophils Absolute Lymphocytes Absolute Monocytes Absolute Eosinophils Absolute Basophils ABG Sample Site ABG pH ABG pCO2 ABG pO2 ABG HCO3 ABG Total CO2 ABG O2 Saturation ABG Base Excess VBG Lactate Oxygen Liter Flow Sodium Potassium Chloride Carbon Dioxide Anion Gap BUN Creatinine Estimated GFR/1.73 m2 Glucose Calcium Magnesium Total Bilirubin AST ALT Alkaline Phosphatase Troponin I NT-Pro-B Natriuret Pep Total Protein Albumin Procalcitonin Urine Color Yellow Urine Clarity Clear Urine pH 6.5 Ur Specific [place] >= 1.030 H Urine Protein 30 H Urine Ketones Negative Urine Blood Trace-intact H Urine Nitrite Negative Urine Bilirubin Negative Urine Urobilinogen 0.2 Ur Leukocyte Esterase Negative Urine RBC 5-10 H Urine WBC Negative Ur Epithelial Cells Moderate Urine Crystals Negative Urine Bacteria Negative Urine Casts 0-2 Hyaline Urine Mucus Negative Ur Culture Indicated? No Urine Glucose Negative COVID-19 Source SARS-CoV-2 (PCR)
[2021-01-13] MEDS: Ferrous Sulfate 325 MG TAB PO (19:58)
[2021-01-13] MEDS: Pantoprazole 20 MG TABCR PO (19:58)
[2021-01-13] MEDS: Apixaban 5 MG TAB PO (19:59)
[2021-01-13] MEDS: Budesonide/Formoterol 160/4.5 6 GM 60 PUFF INH IH (20:00)
[2021-01-13] MEDS: Ascorbic Acid 500 MG TAB PO (20:00)
[2021-01-13 23:16] LABS: Legionella Ag Detection Urine Negative (Negative)
[2021-01-13] MEDS: Valsartan 40 MG TAB 20 MG PO (23:41)
[2021-01-13] MEDS: Gabapentin 300 MG CAP PO (23:43)
[2021-01-13] MEDS: Insulin Glargine 300 UNITS/3 ML PEN 20 UNITS SC (23:45)
[2021-01-14] VITALS (11 sets, daily range): BP systolic 102–147; BP diastolic 62–77; PULSE 85–98; RESP 8–22; TEMP 36.4–36.8; O2SAT 88–93
[2021-01-14] MEDS: VANCOMYCIN/WATER (PEG) 1.25 GM/250 ML BAG IVPB ×2 (03:54→16:18)
[2021-01-14] MEDS: DOXYCYCLINE 100 MG in Normal Saline 100 ML IVPB ×2 (03:55→16:17)
[2021-01-14] MEDS: Levothyroxine 100 MCG TAB PO (05:37)
[2021-01-14] MEDS: Albuterol/Ipratropium 3 ML UPD VIAL UPD ×4 (05:38→23:20)
[2021-01-14 06:53] LABS: Abs Immature Grans 0.23 10^3/uL (0.0-0.06); Absolute Basophil Count 0.03 10^3/uL (0.0-0.2); Absolute Lymphocyte Count 1.05 10^3/uL (1.2-3.4); Absolute Monocyte Count 0.23 10^3/uL (0.1-0.8); Basophils % 0.2; HCT 37.1 % (36.0-46.0); Immature Grans % 1.6; Lymphocytes % 7.3; MCH 29.6 pg (27.0-33.0); MCHC 29.6 % (32.0-36.0); MPV 9.5 fL (8.0-11.0); Monocytes % 1.6; Neutrophils % 89.3; Nucleated RBC 0 %; Platelet Count 372 10^3/uL (130-400); RBC 3.71 10^6/uL (3.93-5.22); RDW-SD 50.9 fL; WBC 14.34 10^3/uL (4.4-10.8)
[2021-01-14 07:04] LABS: Absolute Neutrophil Count 12.81 10^3/uL (1.2-6.7)
[2021-01-14 07:14] LABS: Albumin 2.5 g/dL (3.4-5.0); Alkaline Phosphatase 79 U/L (46-116); BUN 13 mg/dL (7-18); Bilirubin, Total 0.3 mg/dL (0.2-1.0); CO2 > 45.0 mmol/L (21.0-32.0); CREATININE 0.7 mg/dL (0.55-1.02); Calcium 9.5 mg/dL (8.5-10.1); Chloride 92 mmol/L (98-107); Glucose 282 mg/dL (74-106); Potassium 3.1 mmol/L (3.5-5.1); Sodium 140 mmol/L (136-145); Total Protein 7.1 g/dL (6.4-8.2)
[2021-01-14 07:15] LABS: ALT 13 U/L (14-59); AST 13 U/L (15-37); Magnesium 1.8 mg/dL (1.8-2.4)
[2021-01-14] MEDS: methylPREDNISolone SUCC 125 MG VIAL 80 MG IVP ×2 (08:25→16:16)
[2021-01-14] MEDS: Furosemide 100 MG/10 ML VIAL 80 MG IVP (08:25)
[2021-01-14] MEDS: Valsartan 40 MG TAB 20 MG PO (08:26)
[2021-01-14] MEDS: Ascorbic Acid 500 MG TAB PO ×2 (08:27→20:40)
[2021-01-14] MEDS: acetaZOLAMIDE 250 MG TAB PO (08:27)
[2021-01-14] MEDS: Cyanocobalamin 500 MCG TAB 1000 MCG PO (08:27)
[2021-01-14] MEDS: Aspirin E.C. 81 MG TABEC PO (08:27)
[2021-01-14] MEDS: Pantoprazole 20 MG TABCR PO ×2 (08:27→20:39)
[2021-01-14] MEDS: Apixaban 5 MG TAB PO ×2 (08:28→20:39)
[2021-01-14] MEDS: Tolterodine 2 MG CAPCR 4 MG PO (08:28)
[2021-01-14] MEDS: Insulin Aspart 300 UNITS/3 ML PEN SC ×7 (08:28→23:20)
[2021-01-14] MEDS: Citalopram 20 MG TAB PO (08:28)
[2021-01-14] MEDS: dilTIAZem CD 120 MG CAPCR 240 MG PO (08:28)
[2021-01-14] MEDS: Folic Acid 1 MG TAB PO (08:28)
[2021-01-14] MEDS: Potassium Chloride 10 MEQ TABCR PO (08:28)
[2021-01-14] MEDS: Amiodarone 200 MG TAB PO (08:28)
[2021-01-14] MEDS: Ferrous Sulfate 325 MG TAB PO ×2 (08:28→20:39)
[2021-01-14] MEDS: Normal Saline Flush 10 ML SYR IVP (08:30)
[2021-01-14] MEDS: Budesonide/Formoterol 160/4.5 6 GM 60 PUFF INH IH ×2 (09:40→20:38)
[2021-01-14] MEDS: Tiotropium Bromide-Respimat 10 PUFF INH IH (09:41)
[2021-01-14] MEDS: Potassium Chloride 20 MEQ TABCR 40 MEQ PO ×2 (09:52→18:28)
--- NOTE | 2021-01-14 11:49 | PDOC.CMIN ---
- If Service Date Differs Date of service: 01/14/21 Time of Service: 11:49 Care Management Initial Assess REASON FOR HOSPITALIZATION:: Acute on chronic respiratory failure, COPD exacerbation. PAST MEDICAL HISTORY/PAST SURGICAL HISTORY:: Medical History. Acute on chronic respiratory failure with hypoxia and hypercapnia. Altered mental status. Arthritis. Atrial fibrillation. Cellulitis. bilateral lower extremities. Cellulitis. CHF (congestive heart failure). Chronic respiratory failure with hypoxia. COPD (chronic obstructive pulmonary disease). Diabetes mellitus. Family history unobtainable due to patient's condition. GERD (gastroesophageal reflux disease). Hypercholesterolemia. Mood disorder. Muscle weakness (generalized). Obesity. Plaque psoriasis. Pneumonia. Streptococcal bacteremia. Toxic metabolic encephalopathy. Type 2 diabetes mellitus. Surgical History. H/O hand surgery. right index finger removal of tendon sheath ganglion. H/O: hysterectomy. History of carpal tunnel surgery of right wrist. History of excision of lesion. abdominal cyst removed. S/P appendectomy PREVIOUS FUNCTIONAL STATUS/SOCIAL/FAMILY SUPPORTS:: Marlen is a resident of the [facility]. She previously was living in a level three facility in [place], [place], but when it closed she was relocated. She has a daughter, Karlie, who lives locally and is supportive. She needs assistance with her ADL's which is provided by the [facility]. ADVANCE DIRECTIVES:: [facility]- Karlie Salazar. DEB on file. Has patient been provided with info about the portal/API?: Yes Did the patient sign up for the portal?: No CODE STATUS:: DNR/DNI INSURANCE COVERAGE / FINANCIAL ISSUES:: [facility] CURRENT HOME/COMMUNITY SERVICES/EQUIPMENT:: Marlen goes between using a front wheeled walker and wheelchair. She currently lives at the [facility] where she receives assistance with her care. PRIMARY CARE PHYSICIAN:: Evi Cloud POTENTIAL DISCHARGE NEEDS:: Coordinated return to the [facility]. PATIENT/FAMILY EDUCATION NEEDS:: Review discharge instructions, limitations and plan to follow up with community providers. ask me three. ANTICIPATED BARRIERS TO DISCHARGE:: None identified. TRANSPORTATION:: via [employer] [facility] [facility]/c [employer] PLAN:: Marlen will return to the [facility] when medically cleared. She will travel by [employer] [facility] van , coordinated by CM. She will follow up with her PCP and discharge plan of care. CM will continue to follow. Readmission - Within the Past 30 Days Yes or No: Y - Date of First Admission Date of 1st Admission: 01/02/21 - Date of this Admission Date of Admission: 01/13/21 This admission was: Through ED - Office Visit Since 1st Admission Have you seen your PCP in the office since discharge?: No - Speicalist Appointments Have you seen any other specialist since your 1st Admission?: No - I. Interview patient and/or Family Difficulty reaching your doctor or getting an office appt?: No Have you had trouble purchasing/ or taking medication?: No How do you take your medications and set up your pills?: Medication managed by facility. Have you had trouble with getting meals at home?: No Describe your typical meals since you have been home: Meals managed by facility. Did you feel ready for discharge when you left the last time: No Why did you not feel ready for discharge?: RYAN asked Marlen if she felt ready for discharge, and she reported that she did not. She stated that she did not feel that her respiratory condition had improved, but that she trusted that she was ready, as the MD cleared her. Were services received that you thought were set up on disch: Yes What services were received?: Marlen lives at a SNF where she receives assistance with ADL's. Did you call your physician beore you came to the ED?: Yes Did your physician tell you to come in?: Yes How do you think you became sick enough to come back?: chronic respiratory condition - ED visits How many ED visits in the past 12 months: 7 - Assessment for Readmission Summary of readmission circumstances, based upon interviews: Marlen reported that she does not feel that she was ready for discharge on her last admission, due to her respiratory status. She has chronic respiratory failure and COPD, which are contributing factors to her readmission. She did state that she has a sleep study scheduled next week, which her facility feels will help to treat her chronic medical conditions, and reduce readmissions. RYAN stated that prior to discharge, if she does not feel medically stable, she should discuss this with CM, her RN and provider.
[2021-01-14 12:05] LABS: HCO3 50 mmol/L (22-26); pH 7.49 (7.35-7.45); pO2 54 mmHg (80-105); sO2 88 % (95-98); tCO2 46 mmol/L (23-27)
[2021-01-14 12:10] LABS: BE > 15 mmol/L (-2-3); Site Right Radial; pCO2 66 mmHg (35-45)
[2021-01-14 12:11] LABS: FIO2L 2.5 L
[2021-01-14] MEDS: cefTRIAXone 2 GM/50 ML BAG IVPB (12:21)
--- NOTE | 2021-01-14 14:19 | W.DIABETESNO ---
Date of service: 01/14/21 Time of Service: 14:19 Diabetes Note NOTE: Assessment: Ms. King returns with pneumonia. She is 163 cm and 137.5 kg. Her BMI is 50.4 kg/m2 c/w class 3 obesity. Of note, her weight yesterday is noted to be 152.7 kg. Blood sugars above target. Getting Novolog for mealtime correction as well as for carbohydrate intake. She also gets Glargine 20 units per day. Her PO intake is excellent. Nutrition diagnosis: Blood glucose above target range of less than 180 related in part to glargine dose. Intervention: Given Ms. King's weight of 137.5 kg, she will likely need a total insulin dose of at least 68 units, 34 of which would be from Glargine. Would recommend titrating Glargine up to 34 units per day. Monitoring and Evaluation: Will continue to monitor nutritional status and blood sugars. Will evaluate nutrition care plan ongoing and adjust as needed. Time Spent in Nutritional Counseling and Treatment: 0
--- NOTE | 2021-01-14 16:20 | W.PM.PROGNOT ---
Date of Service Date of service: 01/14/21 Time of Service: 16:20 Assessment and Plan Assessment and plan (1) HCAP (healthcare-associated pneumonia): Status: Acute Assessment and plan: Attempt to obtain sputum culture., Check urine for strep antigen, check Legionella studies, check mycoplasma studies, continue broad-spectrum antibiotics with ceftriaxone and doxycycline and vancomycin. Titrate her oxygen to maintain SPO2 of 88 to 92%. Patient has appt. w/ sleep lab in the next week according to RT. Patient needs to be qualified for BIPAP for treatment of her COPD as well as for hypoventilation syndrome d/t her morbid obesity as well as probable sleep apnea. Encourage use of IS and acapella. Will treat w/ bronchodilators and corticosteroids. Legionella urine antigen is negative. If Mycoplasma studies return negative then I would dc her Doxycycline, but continue the Vancomycin and Rocephin. (2) Acute and chronic respiratory failure with hypercapnia: Status: Acute Assessment and plan: as above. Hopefully she can get qualified for BIPAP. She would benefit from a Trilogy device. (3) MRSA (methicillin resistant staph aureus) culture positive: Status: Acute Assessment and plan: treat w/ Vancomycin; add bactroban to reduce colonization of her upper airway (nares) (4) Atrial fibrillation: Status: Chronic Assessment and plan: cont. Cardizem and Eliquis Qualifiers: Atrial fibrillation type: unspecified Qualified Code(s): I48.91 - Unspecified atrial fibrillation (5) Type 2 diabetes mellitus: Status: Chronic Assessment and plan: basal/bolus insulin w/ CHO coverage and SSI for coverage of excess glucose levels. cardiac/diabetic diet. Qualifiers: Diabetes mellitus halfway insulin use: without intermediate frame tender use Diabetes mellitus complication status: without complication Qualified Code(s): E11.9 - Type 2 diabetes mellitus without complications Subjective Subjective Interval history since last seen: Patient is more awake today. She has no acute complaints. She has a cough that is nonproductive. She remains afebrile. She is currently on Vancomycin (for HCAP and + MRSA screen), Ceftriaxone 2 gm daily and Doxycycline. She is off BIPAP. SPO2 is 88 to 92%. She is on 2.5 LPM per NC. Exam Narrative Exam Narrative: Obese female sitting up in her chair w/ her legs dangling over the edge of the chair. She is quiet and seemed somnolent but when I called her name she easily responded and opened her eyes and spoke w/ me Lungs: bilateral basilar rale, scattered expiratory wheezing; diminished sounds a the bases Heart: regular Abdomen: obese, nontender Legs: 3+ edema, dependent rubor, no open sores. Objective Last Vital Signs Temp 36.8 C 01/14/21 15:20 Pulse 85 01/14/21 15:20 Resp 19 01/14/21 15:20 BP 113/71 01/14/21 15:20 Pulse Ox 93 01/14/21 15:20 Laboratory Results - last 24 hr 01/13/21 01/14/21 01/14/21 13:55 06:10 06:10 WBC 14.34 H RBC 3.71 L Hgb 11.0 L Hct 37.1 MCV 100.0 H D MCH 29.6 MCHC 29.6 L RDW 14.0 Plt Count 372 MPV 9.5 Immature Gran % 1.6 Neutrophils % 89.3 Lymphocytes % 7.3 Monocytes % 1.6 Eosinophils % 0.0 Basophils % 0.2 Nucleated RBC % 0 Absolute Neutrophils 12.81 H Absolute Lymphocytes 1.05 L Absolute Monocytes 0.23 Absolute Eosinophils 0.00 Absolute Basophils 0.03 ABG Sample Site ABG pH ABG pCO2 ABG pO2 ABG HCO3 ABG Total CO2 ABG O2 Saturation ABG Base Excess Oxygen Liter Flow Sodium 140 Potassium 3.1 L Chloride 92 L Carbon Dioxide > 45.0 H Anion Gap BUN 13 Creatinine 0.7 Estimated GFR/1.73 m2 >= 60.00 Glucose 282 H Calcium 9.5 Magnesium 1.8 Total Bilirubin 0.3 AST 13 L ALT 13 L Alkaline Phosphatase 79 Total Protein 7.1 Albumin 2.5 L Urine Legionella Ag Negative 01/14/21 01/14/21 11:58 14:00 WBC RBC Hgb Hct MCV MCH MCHC RDW Plt Count MPV Immature Gran % Neutrophils % Lymphocytes % Monocytes % Eosinophils % Basophils % Nucleated RBC % Absolute Neutrophils Absolute Lymphocytes Absolute Monocytes Absolute Eosinophils Absolute Basophils ABG Sample Site Right Radial ABG pH 7.49 H ABG pCO2 66 H* ABG pO2 54 L ABG HCO3 50 H ABG Total CO2 46 H ABG O2 Saturation 88 L ABG Base Excess > 15 H Oxygen Liter Flow 2.5 Sodium Potassium 3.0 L Chloride Carbon Dioxide Anion Gap BUN Creatinine Estimated GFR/1.73 m2 Glucose Calcium Magnesium Total Bilirubin AST ALT Alkaline Phosphatase Total Protein Albumin Urine Legionella Ag
--- NOTE | 2021-01-14 17:45 | CHAPLAIN ---
Marlen, a resident of [facility], was sitting on the edge of chair when I visited this morning. Her nurse, BENNIE Deras, was providing care. Marlen was responded to some questions and seemed to want to be distracted from her stress of breathing, but then began to fall asleep. As she was talking. I let her know that I would visit another time.
[2021-01-14] MEDS: Potassium Chloride 20 MEQ TABCR PO (20:39)
[2021-01-14 21:37] LABS: Streptococcus Pneumoniae Ag, U Negative (Negative)
[2021-01-14] MEDS: Gabapentin 300 MG CAP PO (23:20)
[2021-01-14] MEDS: Insulin Glargine 300 UNITS/3 ML PEN 30 UNITS SC (23:21)
[2021-01-15] VITALS (12 sets, daily range): BP systolic 116–150; BP diastolic 54–81; PULSE 82–89; RESP 2–23; TEMP 36.3–36.8; O2SAT 90–96
[2021-01-15] MEDS: DOXYCYCLINE 100 MG in Normal Saline 100 ML IVPB ×2 (04:59→16:15)
[2021-01-15] MEDS: VANCOMYCIN/WATER (PEG) 1.25 GM/250 ML BAG IVPB ×2 (04:59→17:38)
[2021-01-15] MEDS: Albuterol/Ipratropium 3 ML UPD VIAL UPD ×4 (05:00→23:00)
[2021-01-15] MEDS: Normal Saline Flush 10 ML SYR IVP ×4 (05:00→16:15)
[2021-01-15] MEDS: Levothyroxine 100 MCG TAB PO (05:00)
[2021-01-15 07:43] LABS: Abs Immature Grans 0.26 10^3/uL (0.0-0.06); Absolute Basophil Count 0.04 10^3/uL (0.0-0.2); Absolute Lymphocyte Count 1.25 10^3/uL (1.2-3.4); Absolute Neutrophil Count 17.75 10^3/uL (1.2-6.7); Basophils % 0.2; HCT 36.3 % (36.0-46.0); HGB 10.7 g/dL (11.2-15.7); Immature Grans % 1.3; Lymphocytes % 6.3; MCH 29.8 pg (27.0-33.0); MCHC 29.5 % (32.0-36.0); MCV 101.1 fL (80-95); MPV 9.4 fL (8.0-11.0); Neutrophils % 89.2; Nucleated RBC 0 %; Platelet Count 429 10^3/uL (130-400); RBC 3.59 10^6/uL (3.93-5.22); RDW 14.3 % (11.7-14.6); RDW-SD 53.2 fL
[2021-01-15 08:15] LABS: ALT 17 U/L (14-59); AST 10 U/L (15-37); Albumin 2.4 g/dL (3.4-5.0); Alkaline Phosphatase 71 U/L (46-116); Anion Gap 2.5 mmol/L (3-11); BUN 22 mg/dL (7-18); Bilirubin, Total 0.2 mg/dL (0.2-1.0); C-Reactive Protein 8.55 mg/dL (0.0-0.3); CO2 43.5 mmol/L (21.0-32.0); CREATININE 0.8 mg/dL (0.55-1.02); Calcium 9.4 mg/dL (8.5-10.1); Chloride 97 mmol/L (98-107); Glucose 307 mg/dL (74-106); NT-proBNP 356 pg/mL (<300); Sodium 143 mmol/L (136-145); Total Protein 6.7 g/dL (6.4-8.2)
[2021-01-15] MEDS: Polyethylene Glycol 3350 17 GM PACKET PO (08:52)
[2021-01-15] MEDS: Valsartan 40 MG TAB 20 MG PO ×2 (08:52→20:08)
[2021-01-15] MEDS: Aspirin E.C. 81 MG TABEC PO (08:53)
[2021-01-15] MEDS: Potassium Chloride 20 MEQ TABCR PO (08:53)
[2021-01-15] MEDS: Tolterodine 2 MG CAPCR 4 MG PO (08:53)
[2021-01-15] MEDS: Potassium Chloride 10 MEQ TABCR PO (08:53)
[2021-01-15] MEDS: predniSONE 20 MG TAB 60 MG PO (08:54)
[2021-01-15] MEDS: dilTIAZem CD 120 MG CAPCR 240 MG PO (08:54)
[2021-01-15] MEDS: acetaZOLAMIDE 250 MG TAB PO (08:54)
[2021-01-15] MEDS: Folic Acid 1 MG TAB PO (08:54)
[2021-01-15] MEDS: Ferrous Sulfate 325 MG TAB PO ×2 (08:54→20:07)
[2021-01-15] MEDS: Amiodarone 200 MG TAB PO (08:55)
[2021-01-15] MEDS: Apixaban 5 MG TAB PO ×2 (08:55→20:07)
[2021-01-15] MEDS: Citalopram 20 MG TAB PO (08:55)
[2021-01-15] MEDS: Pantoprazole 20 MG TABCR PO ×2 (08:55→20:07)
[2021-01-15] MEDS: Insulin Aspart 300 UNITS/3 ML PEN SC ×7 (08:57→22:35)
[2021-01-15] MEDS: Cyanocobalamin 500 MCG TAB 1000 MCG PO (09:18)
[2021-01-15] MEDS: Insulin NPH-Human 300 UNITS/3 ML PEN 30 UNIT SC (10:09)
[2021-01-15] MEDS: Budesonide/Formoterol 160/4.5 6 GM 60 PUFF INH IH ×2 (10:15→20:10)
[2021-01-15] MEDS: Tiotropium Bromide-Respimat 10 PUFF INH IH (10:16)
[2021-01-15] MEDS: Nystatin POWDER 15 GM JAR TP ×3 (10:44→20:09)
[2021-01-15] MEDS: Ascorbic Acid 500 MG TAB PO ×2 (12:26→20:08)
[2021-01-15] MEDS: cefTRIAXone 2 GM/50 ML BAG IVPB (12:30)
[2021-01-15] MEDS: Potassium Chloride 20 MEQ TABCR 40 MEQ PO ×2 (14:16→20:08)
--- NOTE | 2021-01-15 14:46 | W.PM.PROGNOT ---
Date of Service Date of service: 01/15/21 Time of Service: 14:46 Assessment and Plan Assessment and plan (1) HCAP (healthcare-associated pneumonia): Start date: 01/15/21 Start time: 14:50 Status: Acute Assessment and plan: Attempt to obtain sputum culture., She is feeling slightly better today, bipap just applied. Check urine for strep antigen, check Legionella studies, check mycoplasma studies, continue broad-spectrum antibiotics with ceftriaxone and doxycycline and vancomycin. Place on bipap Encourage use of IS and acapella. Will treat w/ bronchodilators and corticosteroids. Legionella urine antigen is negative. If Mycoplasma studies return negative then dc her Doxycycline, but continue the Vancomycin and Rocephin. (2) Acute and chronic respiratory failure with hypercapnia: Start date: 01/15/21 Start time: 14:53 Status: Acute Assessment and plan: as above. Hopefully she can get qualified for BIPAP. She would benefit from a Trilogy device. (3) MRSA (methicillin resistant staph aureus) culture positive: Start date: 01/15/21 Start time: 14:53 Status: Acute Assessment and plan: treat w/ Vancomycin; add bactroban to reduce colonization of her upper airway (nares) (4) Atrial fibrillation: Start date: 01/15/21 Start time: 14:53 Status: Chronic Assessment and plan: cont. Cardizem and Eliquis rate controlled. Qualifiers: Atrial fibrillation type: unspecified Qualified Code(s): I48.91 - Unspecified atrial fibrillation (5) Type 2 diabetes mellitus: Start date: 01/15/21 Start time: 14:53 Status: Chronic Assessment and plan: basal/bolus insulin w/ CHO coverage and SSI for coverage of excess glucose levels. cardiac/diabetic diet. She is in 300 range will increase lantus to 45, consider increasing carb units to 5 per 10 as well tomorrow in addition if still elevated. Qualifiers: Diabetes mellitus intermediate insulin use: without intermediate use Diabetes mellitus complication status: without complication Qualified Code(s): E11.9 - Type 2 diabetes mellitus without complications (6) DVT prophylaxis: Start date: 01/15/21 Start time: 14:55 Status: Acute Assessment and plan: on eliquis (7) Discharge planning issues: Start date: 01/15/21 Start time: 14:55 Status: Acute Assessment and plan: Will return to [facility] when medically ready discussed with Dr. Mayfield Subjective Subjective Patient reports: other Interval history since last seen: Sitting up in chair bipap on, feeling little improvement though bipap just placed. Mental status much improved from admission. AAOX3. Eating and drinking well. Continue bipap as this time. Exam Narrative Exam Narrative: Obese female sitting up in her chair w/ her legs elevated, currently on bipap just placed. Alert, oriented to person place and time. Lungs:LSC, no wheezing, rales or rhonchi, Heart: regular Abdomen: obese, nontender Legs: 3+ edema, dependent rubor, no open sores. Objective Last Vital Signs Temp 36.3 C L 01/15/21 07:15 Pulse 86 01/15/21 12:41 Resp 22 01/15/21 12:41 BP 150/74 H 01/15/21 07:15 Pulse Ox 91 L 01/15/21 12:41 Laboratory Results - last 24 hr 01/13/21 01/15/21 01/15/21 13:55 06:30 06:30 WBC 19.90 H D RBC 3.59 L Hgb 10.7 L Hct 36.3 MCV 101.1 H MCH 29.8 MCHC 29.5 L RDW 14.3 Plt Count 429 H MPV 9.4 Immature Gran % 1.3 Neutrophils % 89.2 Lymphocytes % 6.3 Monocytes % 3.0 Eosinophils % 0.0 Basophils % 0.2 Nucleated RBC % 0 Absolute Neutrophils 17.75 H Absolute Lymphocytes 1.25 Absolute Monocytes 0.60 Absolute Eosinophils 0.00 Absolute Basophils 0.04 Sodium 143 Potassium 3.0 L Chloride 97 L Carbon Dioxide 43.5 H Anion Gap 2.5 L BUN 22 H D Creatinine 0.8 Estimated GFR/1.73 m2 >= 60.00 Glucose 307 H Calcium 9.4 Total Bilirubin 0.2 AST 10 L ALT 17 Alkaline Phosphatase 71 C-Reactive Protein 8.55 H NT-Pro-B Natriuret Pep 356 H Total Protein 6.7 Albumin 2.4 L Ur Strep pneumoniae Ag Negative
[2021-01-15 15:08] LABS: Vancomycin, Trough 18.3 ug/mL (10.0-20.0)
[2021-01-15] MEDS: Gabapentin 300 MG CAP PO (22:35)
[2021-01-15] MEDS: Insulin Glargine 300 UNITS/3 ML PEN 45 UNITS SC (22:36)
[2021-01-16] VITALS (10 sets, daily range): BP systolic 103–151; BP diastolic 60–80; PULSE 68–78; RESP 1–20; TEMP 36.3–36.6; O2SAT 90–95
[2021-01-16] MEDS: DOXYCYCLINE 100 MG in Normal Saline 100 ML IVPB ×2 (05:08→15:54)
[2021-01-16] MEDS: VANCOMYCIN/WATER (PEG) 1.25 GM/250 ML BAG IVPB ×2 (05:08→15:54)
[2021-01-16] MEDS: Levothyroxine 100 MCG TAB PO (05:08)
[2021-01-16] MEDS: Albuterol/Ipratropium 3 ML UPD VIAL UPD ×3 (05:09→23:05)
[2021-01-16] MEDS: Normal Saline Flush 10 ML SYR IVP ×6 (05:09→20:34)
[2021-01-16] MEDS: Valsartan 40 MG TAB 20 MG PO ×2 (08:46→20:31)
[2021-01-16] MEDS: Tolterodine 2 MG CAPCR 4 MG PO (08:46)
[2021-01-16] MEDS: Aspirin E.C. 81 MG TABEC PO (08:46)
[2021-01-16] MEDS: Potassium Chloride 20 MEQ TABCR 40 MEQ PO ×3 (08:47→20:33)
[2021-01-16] MEDS: acetaZOLAMIDE 250 MG TAB PO (08:47)
[2021-01-16] MEDS: Pantoprazole 20 MG TABCR PO ×2 (08:47→20:33)
[2021-01-16] MEDS: dilTIAZem CD 120 MG CAPCR 240 MG PO (08:47)
[2021-01-16] MEDS: predniSONE 20 MG TAB 60 MG PO (08:47)
[2021-01-16] MEDS: Ferrous Sulfate 325 MG TAB PO ×2 (08:48→20:31)
[2021-01-16] MEDS: Apixaban 5 MG TAB PO ×2 (08:48→20:33)
[2021-01-16] MEDS: Amiodarone 200 MG TAB PO (08:48)
[2021-01-16] MEDS: Polyethylene Glycol 3350 17 GM PACKET PO (08:48)
[2021-01-16] MEDS: Cyanocobalamin 500 MCG TAB 1000 MCG PO (08:48)
[2021-01-16] MEDS: Citalopram 20 MG TAB PO (08:48)
[2021-01-16] MEDS: Ascorbic Acid 500 MG TAB PO ×2 (08:48→20:30)
[2021-01-16] MEDS: Folic Acid 1 MG TAB PO (08:48)
[2021-01-16] MEDS: Insulin NPH-Human 300 UNITS/3 ML PEN 30 UNIT SC (08:49)
[2021-01-16] MEDS: Insulin Aspart 300 UNITS/3 ML PEN SC ×7 (08:53→22:09)
[2021-01-16] MEDS: Budesonide/Formoterol 160/4.5 6 GM 60 PUFF INH IH ×2 (08:59→22:11)
[2021-01-16] MEDS: Tiotropium Bromide-Respimat 10 PUFF INH IH (09:00)
[2021-01-16] MEDS: Nystatin POWDER 15 GM JAR TP ×2 (09:01→13:32)
[2021-01-16] MEDS: cefTRIAXone 2 GM/50 ML BAG IVPB (12:37)
--- NOTE | 2021-01-16 14:23 | W.PM.PROGNOT ---
Date of Service Date of service: 01/16/21 Time of Service: 14:23 Assessment and Plan Assessment and plan (1) HCAP (healthcare-associated pneumonia): Start date: 01/16/21 Start time: 14:27 Status: Acute Assessment and plan: Attempt to obtain sputum culture., She feels much better today. Slept with Bipap on Mentation at baseline continue use of IS and acapella. Will treat w/ bronchodilators and corticosteroids. Legionella urine antigen is negative. If Mycoplasma studies return negative then dc her Doxycycline, but continue the Vancomycin and Rocephin. (2) Acute and chronic respiratory failure with hypercapnia: Start date: 01/16/21 Start time: 14:28 Status: Acute Assessment and plan: as above. Hopefully she can get qualified for BIPAP. She would benefit from a Trilogy device. (3) MRSA (methicillin resistant staph aureus) culture positive: Start date: 01/16/21 Start time: 14:28 Status: Acute Assessment and plan: treat w/ Vancomycin; add bactroban to reduce colonization of her upper airway (nares) (4) Atrial fibrillation: Start date: 01/16/21 Start time: 14:28 Status: Chronic Assessment and plan: cont. Cardizem and Eliquis rate controlled. Qualifiers: Atrial fibrillation type: unspecified Qualified Code(s): I48.91 - Unspecified atrial fibrillation (5) Type 2 diabetes mellitus: Start date: 01/16/21 Start time: 14:29 Status: Chronic Assessment and plan: basal/bolus insulin w/ CHO coverage and SSI for coverage of excess glucose levels. cardiac/diabetic diet. She is in 300 range will increase lantus to 45, still in 200's but improved will increase lantus to 50 at hs and consider 5:10 carb ratio if still high. Qualifiers: Diabetes mellitus detention insulin use: without computer terminal operator use Diabetes mellitus complication status: without complication Qualified Code(s): E11.9 - Type 2 diabetes mellitus without complications (6) DVT prophylaxis: Start date: 01/16/21 Start time: 14:31 Status: Acute Assessment and plan: on eliquis (7) Discharge planning issues: Start date: 01/16/21 Start time: 14:31 Status: Acute Assessment and plan: Will return to [facility] when medically ready discussed with Dr. Mayfield Subjective Subjective Patient reports: no new complaints and feels better Interval history since last seen: Feeling much better, states she wore bipap all night and slept with it on. slept all night. AAOx3. Denies Cp, SOB, N/V/D Exam Narrative Exam Narrative: Obese female sitting up in her chair w/ her legs elevated, currently on oxygen. Alert, oriented to person place and time. Lungs:LS with expiratory wheeze faint, no SOB, rales or rhonchi, Heart: RRR Abdomen: obese, nontender Legs: 3+ edema, dependent rubor, no open sores. Objective Last Vital Signs Temp 36.6 C 01/16/21 07:26 Pulse 68 01/16/21 07:26 Resp 20 01/16/21 07:26 BP 120/67 01/16/21 07:26 Pulse Ox 90 L 01/16/21 07:26
[2021-01-16 14:44] LABS: Abs Immature Grans 0.16 10^3/uL (0.0-0.06); Absolute Basophil Count 0.02 10^3/uL (0.0-0.2); Absolute Lymphocyte Count 1.13 10^3/uL (1.2-3.4); Absolute Monocyte Count 0.56 10^3/uL (0.1-0.8); Basophils % 0.1; HCT 36.6 % (36.0-46.0); HGB 10.8 g/dL (11.2-15.7); Lymphocytes % 7.1; MCH 29.8 pg (27.0-33.0); MCHC 29.5 % (32.0-36.0); MCV 101.1 fL (80-95); Monocytes % 3.5; Neutrophils % 88.3; Nucleated RBC 0 %; Platelet Count 427 10^3/uL (130-400); RBC 3.62 10^6/uL (3.93-5.22); RDW 14.6 % (11.7-14.6); WBC 15.86 10^3/uL (4.4-10.8)
[2021-01-16 14:53] LABS: Anion Gap 1.2 mmol/L (3-11); BUN 25 mg/dL (7-18); CO2 38.8 mmol/L (21.0-32.0); Calcium 10.1 mg/dL (8.5-10.1); Chloride 100 mmol/L (98-107); Magnesium 2.1 mg/dL (1.8-2.4); Sodium 140 mmol/L (136-145)
[2021-01-16 15:01] LABS: Glucose 223 mg/dL (74-106); Potassium 4.4 mmol/L (3.5-5.1)
[2021-01-16] MEDS: Gabapentin 300 MG CAP PO (22:08)
[2021-01-16] MEDS: Insulin Glargine 300 UNITS/3 ML PEN 50 UNITS SC (22:10)
[2021-01-17 03:20] VITALS: BP 152/77; PULSE 75; RESP 20; TEMP 36.3; O2SAT 97
[2021-01-17] MEDS: DOXYCYCLINE 100 MG in Normal Saline 100 ML IVPB ×2 (04:34→15:51)
[2021-01-17] MEDS: VANCOMYCIN/WATER (PEG) 1.25 GM/250 ML BAG IVPB ×2 (05:05→19:44)
[2021-01-17] MEDS: Albuterol/Ipratropium 3 ML UPD VIAL UPD ×3 (05:52→17:07)
[2021-01-17] MEDS: Levothyroxine 100 MCG TAB PO (05:52)
[2021-01-17] MEDS: Nystatin POWDER 15 GM JAR TP (07:43)
[2021-01-17] MEDS: Polyethylene Glycol 3350 17 GM PACKET PO ×2 (07:43→19:41)
[2021-01-17] MEDS: Pantoprazole 20 MG TABCR PO ×2 (07:44→19:42)
[2021-01-17] MEDS: predniSONE 20 MG TAB 40 MG PO (07:44)
[2021-01-17] MEDS: Potassium Chloride 20 MEQ TABCR 40 MEQ PO ×3 (07:44→19:43)
[2021-01-17] MEDS: Aspirin E.C. 81 MG TABEC PO (07:44)
[2021-01-17] MEDS: Ferrous Sulfate 325 MG TAB PO ×2 (07:44→19:42)
[2021-01-17] MEDS: dilTIAZem CD 120 MG CAPCR 240 MG PO (07:44)
[2021-01-17] MEDS: acetaZOLAMIDE 250 MG TAB PO (07:44)
[2021-01-17] MEDS: Citalopram 20 MG TAB PO (07:45)
[2021-01-17] MEDS: Apixaban 5 MG TAB PO ×2 (07:45→19:41)
[2021-01-17] MEDS: Tolterodine 2 MG CAPCR 4 MG PO (07:45)
[2021-01-17] MEDS: Folic Acid 1 MG TAB PO (07:45)
[2021-01-17] MEDS: Cyanocobalamin 500 MCG TAB 1000 MCG PO (07:45)
[2021-01-17] MEDS: Amiodarone 200 MG TAB PO (07:45)
[2021-01-17] MEDS: Ascorbic Acid 500 MG TAB PO ×2 (07:45→19:42)
[2021-01-17] MEDS: Valsartan 40 MG TAB 20 MG PO ×2 (07:45→19:41)
[2021-01-17] MEDS: Budesonide/Formoterol 160/4.5 6 GM 60 PUFF INH IH ×2 (07:46→19:46)
[2021-01-17] MEDS: Tiotropium Bromide-Respimat 10 PUFF INH IH (07:46)
[2021-01-17] MEDS: Insulin NPH-Human 300 UNITS/3 ML PEN 30 UNIT SC (07:48)
[2021-01-17] MEDS: Normal Saline Flush 10 ML SYR IVP ×2 (07:49→13:15)
[2021-01-17] MEDS: Insulin Aspart 300 UNITS/3 ML PEN SC ×7 (07:51→22:30)
[2021-01-17 08:51] VITALS: BP 110/76; PULSE 76; RESP 20; TEMP 36.8; O2SAT 92
[2021-01-17 11:29] VITALS: BP 126/72; PULSE 73; RESP 19; TEMP 36.1; O2SAT 95
[2021-01-17] MEDS: cefTRIAXone 2 GM/50 ML BAG IVPB (11:47)
[2021-01-17 15:45] LABS: Vancomycin, Trough 20.3 ug/mL (10.0-20.0)
[2021-01-17 15:55] VITALS: BP 131/70; PULSE 72; RESP 18; TEMP 36.5; O2SAT 95
--- NOTE | 2021-01-17 17:07 | W.PM.PROGNOT ---
Date of Service Date of service: 01/17/21 Time of Service: 17:07 Assessment and Plan Assessment and plan (1) HCAP (healthcare-associated pneumonia): Status: Acute Assessment and plan: Attempt to obtain sputum culture., She feels much better today. refused Bipap last night continue use of IS and acapella. Will treat w/ bronchodilators and corticosteroids. Legionella urine antigen is negative. If Mycoplasma studies return negative then dc her Doxycycline, but continue the Vancomycin and Rocephin. (2) Acute and chronic respiratory failure with hypercapnia: Status: Acute Assessment and plan: as above. Hopefully she can get qualified for BIPAP. She would benefit from a Trilogy device. (3) MRSA (methicillin resistant staph aureus) culture positive: Status: Acute Assessment and plan: treat w/ Vancomycin; add bactroban to reduce colonization of her upper airway (nares) (4) Atrial fibrillation: Status: Chronic Assessment and plan: cont. Cardizem and Eliquis rate controlled. Qualifiers: Atrial fibrillation type: unspecified Qualified Code(s): I48.91 - Unspecified atrial fibrillation (5) Type 2 diabetes mellitus: Status: Chronic Assessment and plan: basal/bolus insulin w/ CHO coverage and SSI for coverage of excess glucose levels. cardiac/diabetic diet. She is in 300 range will increase lantus to 45, still in 200's but improved will increase lantus to 50 at hs and consider 5:10 carb ratio if still high. Qualifiers: Diabetes mellitus watermelon inspector insulin use: without watermelon inspector use Diabetes mellitus complication status: without complication Qualified Code(s): E11.9 - Type 2 diabetes mellitus without complications (6) DVT prophylaxis: Status: Acute Assessment and plan: on eliquis (7) Discharge planning issues: Status: Acute Assessment and plan: Will return to [facility] when medically ready discussed with Dr. Mayfield Subjective Subjective Patient reports: no new complaints, feels better, tolerating liquids well and no bowel movement; denies shortness of breath Interval history since last seen: reports constipation Exam Const General: cooperative and no acute distress Nutritional Appearance: obese morbidly obese Orientation: alert, awake and oriented x3 HENMT Head: normal to inspection Face and sinus: normal facial exam Eyes General: appearance normal, both eyes and all related structures Pupils: PERRL EOM: EOM intact bilaterally Neck Neck: normal visual inspection and No submandibular swelling Lymphatic: no lymphadenopathy noted Chest Chest: normal inspection of the chest Resp Effort & Inspection: normal respiratory effort and able to speak in complete sentences Auscultation: diminished lung sounds on the left in the upper lung askew and wheezes scattered wheezes Cardio Rate: regular rate Rhythm: regular rhythm GI Inspection: normal to inspection and obesity Palpation: soft, not firm, not rigid and nontender Auscultation: hypoactive bowel sounds Back/Spine/Pelvis Thoracic/Lumbar Spine: thoracic and lumbar spine normal to inspection Pelvis: no pain with anterior-posterior compression Skin General skin exam: no rashes or lesions noted Neuro General: patient alert, patient awake and patient oriented x3 Cognition: normal cognition Speech: speech normal Motor: muscle tone normal throughout Extrem General: normal to inspection, full ROM, capillary refill normal, no calf tenderness bilaterally and no edema Psych Appearance: grossly normal Mental Status: mental status grossly normal Speech and Movement: speech and movement normal Affect: normal affect Objective Last Vital Signs Temp 36.5 C 01/17/21 15:55 Pulse 72 01/17/21 15:55 Resp 18 01/17/21 15:55 BP 131/70 01/17/21 15:55 Pulse Ox 95 01/17/21 15:55 Laboratory Results - last 24 hr 01/17/21 01/17/21 15:07 15:07 Creatinine 1.0 Estimated GFR/1.73 m2 54.50 Vancomycin Trough 20.3 H*
--- NOTE | 2021-01-17 17:44 | PDOC.CMPRO ---
- If Service Date Differs Date of service: 01/17/21 Time of Service: 17:44 Care Management Progress Note S/O: Marlen was sitting up in her chair when CM met with her. She reported that she had a nice weekend, and that she is feeling much better today. She stated that she slept much better using BIPAP, but that last night she didn't feel that it was placed correctly, so she was unable to use it all night. She was seen by Palliative care today, who follow her. Marlen has a sleep study scheduled for 01/20/21, unsure at this time if she will make this appointment. CM will continue to follow. A: Marlen is a 70 year old female admitted to [facility] on 01/13/21 with COPD exacerbation. P: Marlen will return to the [facility] when medically cleared. She will travel by [facility] w/c [place] , coordinated by CM. She will follow up with her PCP and discharge plan of care. CM will continue to follow.
[2021-01-17 19:15] VITALS: BP 137/69; PULSE 70; RESP 21; TEMP 37; O2SAT 92
[2021-01-17] MEDS: Docusate Sodium 100 MG CAP PO (19:41)
--- NOTE | 2021-01-17 20:13 | W.PALPGNOTE ---
Date of service: 01/17/21 Time of Service: 08:14 Assessment and Plan Assessment and plan (1) Acute and chronic respiratory failure with hypercapnia: Status: Acute (2) HCAP (healthcare-associated pneumonia): Status: Acute (3) Palliative care patient: Status: Acute Assessment and plan: Marlen is doing better mentally. She is sharp. Discussion regarding BiPAP. She actually feels better when she is wearing the BiPAP. She was not so concerned about the machine malfunctioning she feels certain that she would have worn it last night. We did discuss this and hopefully it will work better for her in the future. Overall she is looking forward to returning to the [facility]. Subjective Subjective Patient reports: feels better and shortness of breath Interval history since last seen: Marlen states that she is feeling much better. I did get a report from staff that she had refused her BiPAP at night. She explained that she did not refuse it but she thought that it was malfunctioning and also felt she was suffocating. She admitted that she was panicky and did not want to have the BiPAP on. Overall she is feeling much better Exam Narrative Exam Narrative: She is sitting in her chair, BiPAP is off. She is engaged in conversation and appears clearer mentally. Her heart is regular. There is a systolic murmur. Lung?airflow is actually pretty good today. Abdomen is obese nontender. She does have edema in her legs and she has Adalberto wraps in place Objective Last Vital Signs Temp 98.6 F 01/17/21 19:15 Pulse 70 01/17/21 19:15 Resp 21 01/17/21 19:15 BP 137/69 01/17/21 19:15 Pulse Ox 92 01/17/21 19:15 Laboratory Results - last 24 hr 01/17/21 01/17/21 15:07 15:07 Creatinine 1.0 Estimated GFR/1.73 m2 54.50 Vancomycin Trough 20.3 H*
[2021-01-17] MEDS: Gabapentin 300 MG CAP PO (22:30)
[2021-01-17] MEDS: Insulin Glargine 300 UNITS/3 ML PEN 50 UNITS SC (22:32)
[2021-01-17 23:15] VITALS: BP 136/69; PULSE 70; RESP 20; TEMP 36.8; O2SAT 93
[2021-01-18] VITALS (7 sets, daily range): BP systolic 120–136; BP diastolic 68–76; PULSE 68–73; RESP 8–20; TEMP 36.4–36.8; O2SAT 89–96
[2021-01-18] MEDS: DOXYCYCLINE 100 MG in Normal Saline 100 ML IVPB (03:39)
[2021-01-18] MEDS: Albuterol/Ipratropium 3 ML UPD VIAL UPD ×3 (05:39→18:45)
[2021-01-18] MEDS: Levothyroxine 100 MCG TAB PO (05:39)
--- NOTE | 2021-01-18 06:26 | NUR.NOTE ---
Nursing Note: Pt refused bipap at night , Pt education ineffective .
[2021-01-18] MEDS: dilTIAZem CD 120 MG CAPCR 240 MG PO (09:20)
[2021-01-18] MEDS: Citalopram 20 MG TAB PO (09:20)
[2021-01-18] MEDS: Apixaban 5 MG TAB PO ×2 (09:20→19:32)
[2021-01-18] MEDS: Pantoprazole 20 MG TABCR PO ×2 (09:20→19:33)
[2021-01-18] MEDS: Cyanocobalamin 500 MCG TAB 1000 MCG PO (09:20)
[2021-01-18] MEDS: Ascorbic Acid 500 MG TAB PO ×2 (09:20→19:32)
[2021-01-18] MEDS: Tolterodine 2 MG CAPCR 4 MG PO (09:21)
[2021-01-18] MEDS: Folic Acid 1 MG TAB PO (09:21)
[2021-01-18] MEDS: Aspirin E.C. 81 MG TABEC PO (09:21)
[2021-01-18] MEDS: acetaZOLAMIDE 250 MG TAB PO (09:21)
[2021-01-18] MEDS: predniSONE 20 MG TAB 40 MG PO (09:21)
[2021-01-18] MEDS: Ferrous Sulfate 325 MG TAB PO ×2 (09:21→22:57)
[2021-01-18] MEDS: Amiodarone 200 MG TAB PO (09:21)
[2021-01-18] MEDS: Docusate Sodium 100 MG CAP PO ×2 (09:21→19:32)
[2021-01-18] MEDS: Valsartan 40 MG TAB 20 MG PO ×2 (09:22→19:33)
[2021-01-18] MEDS: Potassium Chloride 20 MEQ TABCR 40 MEQ PO ×3 (09:22→19:34)
[2021-01-18] MEDS: Polyethylene Glycol 3350 17 GM PACKET PO ×2 (09:22→19:34)
[2021-01-18] MEDS: Insulin Aspart 300 UNITS/3 ML PEN SC ×6 (09:30→22:59)
[2021-01-18] MEDS: Insulin NPH-Human 300 UNITS/3 ML PEN 30 UNIT SC (09:32)
[2021-01-18] MEDS: Budesonide/Formoterol 160/4.5 6 GM 60 PUFF INH IH ×2 (09:38→19:36)
[2021-01-18] MEDS: Nystatin POWDER 15 GM JAR TP ×2 (09:39→13:45)
[2021-01-18] MEDS: Tiotropium Bromide-Respimat 10 PUFF INH IH (09:40)
[2021-01-18] MEDS: VANCOMYCIN/WATER (PEG) 1.25 GM/250 ML BAG IVPB (09:59)
--- NOTE | 2021-01-18 12:39 | PGE_ITS ---
Date of Service Date of service: 01/18/21 Time of Service: 12:39 Assessment and Plan Assessment and plan (1) HCAP (healthcare-associated pneumonia): Status: Acute Assessment and plan: Attempt to obtain sputum culture., continues to refuse Bipap at night continue use of IS and acapella. Will treat w/ bronchodilators and corticosteroids. Legionella urine antigen is negative. If Mycoplasma studies return negative then dc her Doxycycline, but continue the Vancomycin and Rocephin. (2) Acute and chronic respiratory failure with hypercapnia: Status: Acute Assessment and plan: as above. Hopefully she can get qualified for BIPAP. She would benefit from a Trilogy device. (3) MRSA (methicillin resistant staph aureus) culture positive: Status: Acute Assessment and plan: treat w/ Vancomycin; add bactroban to reduce colonization of her upper airway (nares) (4) Atrial fibrillation: Status: Chronic Assessment and plan: cont. Cardizem and Eliquis rate controlled. Qualifiers: Atrial fibrillation type: unspecified Qualified Code(s): I48.91 - Unspecified atrial fibrillation (5) Type 2 diabetes mellitus: Status: Chronic Assessment and plan: basal/bolus insulin w/ CHO coverage and SSI for coverage of excess glucose levels. cardiac/diabetic diet. She is in 300 range will increase lantus to 45, still in 200's but improved will increase lantus to 50 at hs and consider 5:10 carb ratio if still high. 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 Mayfield Subjective Subjective Patient reports: feels better, tolerating liquids well, tolerating a regular diet, no bowel movement, shortness of breath (with activity) and afebrile Exam Const General: cooperative and no acute distress Nutritional Appearance: obese morbidly obese Orientation: alert, awake and oriented x3 HENMT Head: normal to inspection Face and sinus: normal facial exam Eyes General: appearance normal, both eyes and all related structures Pupils: PERRL EOM: EOM intact bilaterally Neck Neck: normal visual inspection and No submandibular swelling Lymphatic: no lymphadenopathy noted Chest Chest: normal inspection of the chest Resp Effort & Inspection: normal respiratory effort and able to speak in complete sentences Auscultation: diminished lung sounds on the left in the upper lung askew and wheezes scattered wheezes Cardio Rate: regular rate Rhythm: regular rhythm GI Inspection: normal to inspection and obesity Palpation: soft, not firm, not rigid and nontender Auscultation: hypoactive bowel sounds Back/Spine/Pelvis Thoracic/Lumbar Spine: thoracic and lumbar spine normal to inspection Pelvis: no pain with anterior-posterior compression Skin General skin exam: no rashes or lesions noted Neuro General: patient alert, patient awake and patient oriented x3 Cognition: normal cognition Speech: speech normal Motor: muscle tone normal throughout Extrem General: normal to inspection, full ROM, capillary refill normal, no calf tenderness bilaterally and no edema Psych Appearance: grossly normal Mental Status: mental status grossly normal Speech and Movement: speech and movement normal Affect: normal affect Objective Last Vital Signs Temp 36.4 C L 01/18/21 08:00 Pulse 73 01/18/21 08:00 Resp 20 01/18/21 08:00 BP 120/70 01/18/21 08:00 Pulse Ox 96 01/18/21 08:00 Laboratory Results - last 24 hr 01/17/21 01/17/21 15:07 15:07 Creatinine 1.0 Estimated GFR/1.73 m2 54.50 Vancomycin Trough 20.3 H*
[2021-01-18] MEDS: cefTRIAXone 2 GM/50 ML BAG IVPB (12:41)
[2021-01-18] MEDS: Doxycycline Hyclate 100 MG CAP PO (17:07)
--- NOTE | 2021-01-18 17:15 | CMPROGNOTE_ITS ---
- If Service Date Differs Date of service: 01/18/21 Time of Service: 17:15 Care Management Progress Note S/O: Marlen was sitting up in her chair when CM met with her today. She has reportedly refused to wear her BIPAP at night, as she stated that it was not comfortable. Per RT, is was adjusted today, and she should be more comfortable wearing it now. She has a sleep study scheduled for 01/20/21, which she is being encouraged to attend, as this may help reduce her re admissions. Per provider, if she is stable for discharge tomorrow, she may return to the [facility], in order for her to be available to attend her sleep study as scheduled. CM called the [facility] to speak to the provider who will be admitting her upon her return, awaiting a call back. CM will continue to follow. A: Marlen is a 70 year old female admitted to [facility] on 01/13/21 with COPD exacerbation. P: Marlen will return to the [facility] when medically cleared. She will travel by [place] [facility] [place] , coordinated by CM. She will follow up with her PCP and discharge plan of care. CM will continue to follow.
[2021-01-18] MEDS: Gabapentin 300 MG CAP PO (22:57)
[2021-01-18] MEDS: Insulin Glargine 300 UNITS/3 ML PEN 50 UNITS SC (22:59)
[2021-01-19] VITALS (7 sets, daily range): BP systolic 109–118; BP diastolic 61–73; PULSE 74–82; RESP 12–20; TEMP 36.1–37; O2SAT 91–95
[2021-01-19] MEDS: VANCOMYCIN/WATER (PEG) 1.25 GM/250 ML BAG IVPB ×2 (00:32→14:47)
[2021-01-19] MEDS: Albuterol/Ipratropium 3 ML UPD VIAL UPD ×4 (01:02→17:44)
[2021-01-19] MEDS: Doxycycline Hyclate 100 MG CAP PO ×2 (05:55→17:44)
[2021-01-19] MEDS: Levothyroxine 100 MCG TAB PO (05:56)
[2021-01-19] MEDS: Tiotropium Bromide-Respimat 10 PUFF INH IH (08:48)
[2021-01-19] MEDS: Budesonide/Formoterol 160/4.5 6 GM 60 PUFF INH IH ×2 (08:48→19:42)
[2021-01-19] MEDS: Polyethylene Glycol 3350 17 GM PACKET PO ×2 (08:49→19:40)
[2021-01-19] MEDS: Nystatin POWDER 15 GM JAR TP ×2 (08:49→14:47)
[2021-01-19] MEDS: Valsartan 40 MG TAB 20 MG PO ×2 (08:50→19:40)
[2021-01-19] MEDS: Potassium Chloride 20 MEQ TABCR 40 MEQ PO ×3 (08:51→19:40)
[2021-01-19] MEDS: predniSONE 20 MG TAB 40 MG PO (08:51)
[2021-01-19] MEDS: acetaZOLAMIDE 250 MG TAB PO (08:51)
[2021-01-19] MEDS: Tolterodine 2 MG CAPCR 4 MG PO (08:51)
[2021-01-19] MEDS: Aspirin E.C. 81 MG TABEC PO (08:51)
[2021-01-19] MEDS: Ferrous Sulfate 325 MG TAB PO ×2 (08:51→19:41)
[2021-01-19] MEDS: Amiodarone 200 MG TAB PO (08:51)
[2021-01-19] MEDS: Citalopram 20 MG TAB PO (08:52)
[2021-01-19] MEDS: Folic Acid 1 MG TAB PO (08:52)
[2021-01-19] MEDS: Ascorbic Acid 500 MG TAB PO ×2 (08:52→19:41)
[2021-01-19] MEDS: Cyanocobalamin 500 MCG TAB 1000 MCG PO (08:52)
[2021-01-19] MEDS: Pantoprazole 20 MG TABCR PO ×2 (08:52→19:41)
[2021-01-19] MEDS: Docusate Sodium 100 MG CAP PO ×2 (08:52→19:41)
[2021-01-19] MEDS: dilTIAZem CD 120 MG CAPCR 240 MG PO (08:52)
[2021-01-19] MEDS: Apixaban 5 MG TAB PO ×2 (08:52→19:41)
[2021-01-19] MEDS: Insulin Aspart 300 UNITS/3 ML PEN SC ×7 (08:53→21:31)
[2021-01-19] MEDS: Insulin NPH-Human 300 UNITS/3 ML PEN 30 UNIT SC (08:55)
--- NOTE | 2021-01-19 11:26 | W.PM.PROGNOT ---
Date of Service Date of service: 01/19/21 Time of Service: 11: Assessment and Plan Assessment and plan (1) HCAP (healthcare-associated pneumonia): Status: Acute Assessment and plan: day 08/16 vancomycin, doxycycline and ceftriaxone blood cultures negative. on home oxygen requirements continue updrafts, (2) Acute and chronic respiratory failure with hypercapnia: Status: Acute Assessment and plan: as above. Hopefully she can get qualified for BIPAP. She would benefit from a Trilogy device. plan for sleep study as scheduled tomorrow night (3) MRSA (methicillin resistant staph aureus) culture positive: Status: Acute Assessment and plan: treat w/ Vancomycin; add bactroban to reduce colonization of her upper airway (nares) (4) Atrial fibrillation: Status: Chronic Assessment and plan: cont. Cardizem and Eliquis rate controlled. Qualifiers: Atrial fibrillation type: unspecified Qualified Code(s): I48.91 - Unspecified atrial fibrillation (5) Type 2 diabetes mellitus: Status: Chronic Assessment and plan: basal/bolus insulin w/ CHO coverage and SSI for coverage of excess glucose levels. cardiac/diabetic diet. She is in 300 range will increase lantus to 45, still in 200's but improved will increase lantus to 50 at hs and consider 5:10 carb ratio if still high. 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 discussed with Dr. Davidson Subjective Subjective Patient reports: no new complaints, tolerating liquids well, tolerating a regular diet and afebrile; denies shortness of breath Exam Const General: cooperative and no acute distress Nutritional Appearance: obese morbidly obese Orientation: alert, awake and oriented x3 HENMT Head: normal to inspection Face and sinus: normal facial exam Eyes General: appearance normal, both eyes and all related structures Pupils: PERRL Neck Neck: normal visual inspection Chest Chest: normal inspection of the chest Resp Effort & Inspection: normal respiratory effort and able to speak in complete sentences Auscultation: diminished lung sounds on the left in the upper lung askew and wheezes scattered wheezes Cardio Rate: regular rate Rhythm: regular rhythm GI Inspection: normal to inspection and obesity Palpation: soft and nontender Auscultation: hypoactive bowel sounds Skin General skin exam: no rashes or lesions noted Neuro General: patient alert, patient awake and patient oriented x3 Cognition: normal cognition Speech: speech normal Motor: muscle tone normal throughout Extrem General: normal to inspection and full ROM Psych Appearance: grossly normal Mental Status: mental status grossly normal Speech and Movement: speech and movement normal Affect: normal affect Objective Last Vital Signs Temp 36.1 C L 01/19/21 11:04 Pulse 74 01/19/21 11:04 Resp 20 01/19/21 11:04 BP 109/65 01/19/21 11:04 Pulse Ox 94 01/19/21 11:04 Laboratory Results - last 24 hr 01/13/21 01/13/21 12:00 13:55 Urine Legionella Ag Negative M. pneumoniae Source Cancelled M. pneumoniae (PCR) Cancelled Ur Strep pneumoniae Ag Negative
[2021-01-19] MEDS: cefTRIAXone 2 GM/50 ML BAG IVPB (12:16)
[2021-01-19] MEDS: Normal Saline Flush 10 ML SYR IVP (14:48)
--- NOTE | 2021-01-19 17:01 | CMPROGNOTE_ITS ---
- If Service Date Differs Date of service: 01/19/21 Time of Service: 17:01 Care Management Progress Note S/O: Marlen continues to receive IV antibiotics, and her last dose is scheduled for tomorrow. Per the [facility], she has a sleep study in [place], [place] tomorrow, 01/20/21 at 8pm. The [facility] asked if she could be transported from [facility] to the Sleep Center for this appointment. CM set up transportation through [facility], [employer] van, as they are closed tomorrow for the holiday. [facility] stated that [facility] would not pay for the trip as she is not being discharged to her home, and it is not the closest facility for her to receive a sleep study. CM sent an authorization form to pay for her transportation, as the provider feels that this is a medically necessary appointment, which may reduce readmissions. [facility] [employer] will brick picker Marlen from [facility] on 01/20/21 at 18:30 to bring her to the [facility]. CM will continue to follow. A: Marlen is a 70 year old female admitted to [facility] on 01/13/21 with COPD exacerbation. P: Marlen will return to the [facility] when medically cleared. She will travel by [place] [employer] [place] , coordinated by RYAN. She will follow up with her PCP and discharge plan of care. CM will continue to follow.
--- NOTE | 2021-01-19 17:01 | PDOC.CMPRO ---
- If Service Date Differs Date of service: 01/19/21 Time of Service: 17:01 Care Management Progress Note S/O: Marlen continues to receive IV antibiotics, and her last dose is scheduled for tomorrow. Per the [facility], she has a sleep study in [place], [place] tomorrow, 01/20/21 at 8pm. The [facility] asked if she could be transported from [facility] to the Sleep Center for this appointment. CM set up transportation through [facility], [employer] van, as they are closed tomorrow for the holiday. [facility] stated that [facility] would not pay for the trip as she is not being discharged to her home, and it is not the closest facility for her to receive a sleep study. CM sent an authorization form to pay for her transportation, as the provider feels that this is a medically necessary appointment, which may reduce readmissions. [employer] [facility] van will continuous pickling line pickler Marlen from [facility] on 01/20/21 at 18:30 to bring her to the [facility]. CM will continue to follow. A: Marlen is a 70 year old female admitted to [facility] on 01/13/21 with COPD exacerbation. P: Marlen will return to the [facility] when medically cleared. She will travel by [employer] [facility] , coordinated by RYAN. She will follow up with her PCP and discharge plan of care. CM will continue to follow.
[2021-01-19] MEDS: Gabapentin 300 MG CAP PO (21:30)
[2021-01-19] MEDS: Insulin Glargine 300 UNITS/3 ML PEN 50 UNITS SC (21:31)
[2021-01-20 01:36] VITALS: RESP 12
[2021-01-20] MEDS: VANCOMYCIN/WATER (PEG) 1.25 GM/250 ML BAG IVPB (03:34)
[2021-01-20] MEDS: Normal Saline 500 ML 30 ML IV (03:34)
[2021-01-20 03:40] VITALS: BP 112/64; PULSE 72; RESP 18; TEMP 37; O2SAT 92
[2021-01-20] MEDS: Albuterol/Ipratropium 3 ML UPD VIAL UPD ×3 (06:35→17:51)
[2021-01-20] MEDS: Doxycycline Hyclate 100 MG CAP PO (06:35)
[2021-01-20] MEDS: Levothyroxine 100 MCG TAB PO (06:35)
[2021-01-20 07:47] VITALS: BP 138/74; PULSE 79; RESP 19; TEMP 36.5; O2SAT 92
[2021-01-20] MEDS: Budesonide/Formoterol 160/4.5 6 GM 60 PUFF INH IH (08:13)
[2021-01-20] MEDS: Tiotropium Bromide-Respimat 10 PUFF INH IH (08:13)
[2021-01-20 08:14] VITALS: RESP 12
[2021-01-20] MEDS: Amiodarone 200 MG TAB PO (08:26)
[2021-01-20] MEDS: Folic Acid 1 MG TAB PO (08:26)
[2021-01-20] MEDS: Apixaban 5 MG TAB PO (08:26)
[2021-01-20] MEDS: Ascorbic Acid 500 MG TAB PO (08:26)
[2021-01-20] MEDS: predniSONE 20 MG TAB 40 MG PO (08:26)
[2021-01-20] MEDS: Citalopram 20 MG TAB PO (08:26)
[2021-01-20] MEDS: Cyanocobalamin 500 MCG TAB 1000 MCG PO (08:26)
[2021-01-20] MEDS: Pantoprazole 20 MG TABCR PO (08:26)
[2021-01-20] MEDS: Potassium Chloride 20 MEQ TABCR 40 MEQ PO ×2 (08:26→13:39)
[2021-01-20] MEDS: dilTIAZem CD 120 MG CAPCR 240 MG PO (08:26)
[2021-01-20] MEDS: Tolterodine 2 MG CAPCR 4 MG PO (08:27)
[2021-01-20] MEDS: Ferrous Sulfate 325 MG TAB PO (08:27)
[2021-01-20] MEDS: Valsartan 40 MG TAB 20 MG PO (08:27)
[2021-01-20] MEDS: Docusate Sodium 100 MG CAP PO (08:27)
[2021-01-20] MEDS: acetaZOLAMIDE 250 MG TAB PO (08:27)
[2021-01-20] MEDS: Aspirin E.C. 81 MG TABEC PO (08:27)
[2021-01-20] MEDS: Insulin NPH-Human 300 UNITS/3 ML PEN 30 UNIT SC (08:28)
[2021-01-20] MEDS: Insulin Aspart 300 UNITS/3 ML PEN SC ×6 (08:29→17:50)
[2021-01-20] MEDS: Polyethylene Glycol 3350 17 GM PACKET PO (08:30)
[2021-01-20] MEDS: Nystatin POWDER 15 GM JAR TP ×2 (08:31→13:39)
--- NOTE | 2021-01-20 09:16 | W.PM.DS.N ---
Date of service: 01/20/21 Time of Service: 09:16 DS: Diagnosis Discharge Diagnosis (1) HCAP (healthcare-associated pneumonia): Status: Acute (2) Acute and chronic respiratory failure with hypercapnia: Status: Acute (3) MRSA (methicillin resistant staph aureus) culture positive: Status: Acute (4) Atrial fibrillation: Status: Chronic (5) Type 2 diabetes mellitus: Status: Chronic Discharge Plan Disposition Patient Disposition: SNF (LEVEL 1) [facility] Condition: Stable Discharge Details Reason For Visit: Acute on Chronic Respiratory Failure,COPD [place] Admit Date/Time: 01/13/21 11:43 Admit Provider: Marcel Willett Attending Provider: Marcel Willett Primary Care Provider: Evi Cloud Hospital Course Hospital Course: this is a 70-year-old female resident of the [facility] in [facility] who has a history of hypercapnic and hypoxemic respiratory failure secondary to COPD (normally on 2 to 3 LPM O2 per NC), pulmonary hypertension, probable sleep apnea, who also has comorbidities including atrial fibrillation anticoagulated with Eliquis, type 2 diabetes mellitus on insulin, essential hypertension who has had multiple admissions to [facility] for HCAP and COPD exacerbation w/ hypercapneic respiratory failure. She was hospitalized 12/16 and again on 01/02. She has been found to be MRSA positive per screening. During her last admission she wsa treated w/ cefepime and vancomycin from 01/02 through 01/07 and her respiratory failure responded to BIPAP. She now presents from the [facility] to the ED because of recurrent hypercapneic and hypoxemic respiratory failure. At the [facility], the patient was on 5 LPM oxygen and her SPO2 was reportedly in the 80's% and her attending, Dr. Shetty spoke w/ the ED provider Dr. Davis and indicated that the patient needs BIPAP. On arrival to the ED the patient's SPO2 was 97%, her oxygen was titrated down to 4 LPM and her SPO2 remained in the mid 90's%. Per Dr. Davis discussion w/ the patient, she is a DNR/DNI. Workup in the ED included CXR that demonstrated cardiomegaly, air bronchograms in the left lower lobe, not previously seen and a persistent infiltrate throughout the right lung. Labs were remarkable for WBC 14,000, stable chronic anemia of Hb11 gm. VBC while on 5 L/min per nasal cannula, pH 7.38, PCO2 91 mm, PO2 77 mm, bicarbonate 53, base excess greater than 15. Repeat ABG was ordered to be done while on BiPAP but was unable to be obtained. CMP was remarkable for carbon dioxide level greater than 45, LFTs were normal and troponin was normal. Procalcitonin was also normal at less than 0.1. SARS-CoV-2 PCR was negative. she was started on treatment for HCAP. her MRSA swab was positive. She was treated for 7 days with vancomycin, doxycycline and ceftriaxone. Her respiratory status returned to her baseline. She will be discharged to her sleep study appointment. She will be placed on a steroid taper at discharge, antibiotics completed. discharge discussed with DR Davidson. . Home Meds and New Rx's Prescriptions: New prednisone 10 mg tablet See Rx Instructions .ROUTE .COMPLEX Qty: 20 RF: 0 Continued pantoprazole 20 mg tablet,delayed release (DR/EC) 20 mg PO BID RF: 0 aspirin 81 mg Tablet,Delayed Release (Dr/Ec) 81 mg PO QAM RF: 0 diltiazem HCl [DILT-XR] 240 mg capsule,ext.rel 24h degradable 240 mg PO QAM RF: 0 folic acid 1 mg Tablet 1 mg PO QAM RF: 0 cyanocobalamin (vitamin B-12) [Vitamin B-12] 100 mcg Tablet 1,000 mcg PO QAM RF: 0 budesonide-formoterol [Symbicort] 160-4.5 mcg/actuation HFA aerosol inhaler 2 inh INHALATION BID RF: 0 Eliquis 5 mg tablet 5 mg PO BID RF: 0 albuterol sulfate 90 mcg/actuation HFA aerosol inhaler 2 inh INHALATION .Q4H,PRN PRNRF: 0 tramadol 50 mg Tablet 50 mg PO QID PRNRF: 0 acetaminophen [Tylenol] 325 mg Tablet 650 mg PO Q4H PRNRF: 0 epinephrine 0.3 mg/0.3 mL Auto-Injector 0.3 mg IM PRN PRNRF: 0 amiodarone 200 mg tablet 200 mg PO DAILY RF: 0 citalopram 40 mg tablet 20 mg PO QAM RF: 0 furosemide [Lasix] 20 mg tablet 80 mg PO BID RF: 0 tolterodine 4 mg capsule,extended release 24hr 4 mg PO DAILY AM RF: 0 potassium chloride 10 mEq tablet extended release 10 meq PO DAILY AM RF: 0 Spiriva with HandiHaler 18 mcg Capsule, W/Inhalation Device 1 cap INHALATION DAILY RF: 0 ascorbic acid (vitamin C) [Vitamin C] 500 mg Tablet 500 mg PO BID RF: 0 gabapentin 300 mg Capsule 300 mg PO HS RF: 0 [place] Saline Gel [place],Non-Aerosol 1 spray INTRANASAL DAILY RF: 0 cholecalciferol (vitamin D3) 1,250 mcg (50,000 unit) Capsule 50,000 unit PO .1X/WEEK RF: 0 Lantus Solostar U-100 Insulin 100 unit/mL (3 mL) Insulin Pen 20 unit SUBCUT HS Qty: 0 RF: 0 levothyroxine 100 mcg Tablet 100 mcg PO DAILY RF: 0 polyethylene glycol 3350 [Miralax] 17 gram/dose Powder 17 g PO DAILY RF: 0 insulin aspart U-100 100 unit/mL (3 mL) Insulin Pen 1 sliding scale dose SUBCUT USEASDIRECTD RF: 0 metformin 500 mg tablet 750 mg PO BID RF: 0 triamcinolone acetonide 0.025 % cream 0 applic TOPICAL DIRECTED RF: 0 Trulicity 0.75 mg/0.5 mL pen injector 0.75 mg SUBCUT QWEEK RF: 0 Trulicity 1.5 mg/0.5 mL pen injector 1.5 mg SUBCUT QWEEK RF: 0 ferrous sulfate 325 mg (65 mg iron) Tablet 325 mg PO BID RF: 0 T Gel Shampoo 1 applic topical .SUNDAY RF: 0 Discharge Instructions Instructions: Pneumonia (DC) Additional Instructions: antibiotics completed taper steroids as directed. present to your sleep study tonight. further instruction by outpatient team Stand Alone Forms: Nursing Discharge Form Referrals: Evi Cloud [Primary Care Provider] - Activity:: Activity as Tolerated Equipment/Supplies:: No Equipment Needed Diet:: Carb Counting Discharge Orders Discharge Orders: Discharge Order (Routine); Ordered 01/20/21 Ordered By: Shalini George DS: Summary Time Spent with Patient providing and/or coordinating discharge services: Greater than 30 minutes Status at Discharge Functional status at discharge: uses cane/walker Overall status at discharge: patient is progressing back to baseline Mental Status: mental status grossly normal Speech and Movement: speech and movement normal Mood: congruent mood Affect: normal affect Exam Const General: cooperative and no acute distress Nutritional Appearance: obese morbidly obese Orientation: alert, awake and oriented x3 HENMT Head: normal to inspection Face and sinus: normal facial exam Eyes General: appearance normal, both eyes and all related structures Pupils: PERRL EOM: EOM intact bilaterally Neck Neck: normal visual inspection Lymphatic: no lymphadenopathy noted Chest Chest: normal inspection of the chest Resp Effort & Inspection: normal respiratory effort and able to speak in complete sentences Auscultation: diminished lung sounds on the left in the upper lung askew and wheezes scattered wheezes Cardio Rate: regular rate Rhythm: regular rhythm GI Inspection: normal to inspection and obesity Palpation: soft and nontender Auscultation: hypoactive bowel sounds Back/Spine/Pelvis Thoracic/Lumbar Spine: thoracic and lumbar spine normal to inspection Pelvis: no pain with anterior-posterior compression Skin General skin exam: no rashes or lesions noted Neuro General: patient alert, patient awake and patient oriented x3 Cognition: normal cognition Speech: speech normal Motor: muscle tone normal throughout Extrem General: normal to inspection and full ROM Psych Appearance: grossly normal Mental Status: mental status grossly normal Speech and Movement: speech and movement normal Mood: congruent mood Affect: normal affect DS: Data Vitals/I&O Vitals and I&O: Vital Signs Temperature 36.5 C 01/20/21 07:47 Temperature Source Tympanic 01/20/21 07:47 Pulse 79 01/20/21 07:47 Pulse Rhythm Irregular 01/20/21 04:09 Pulse 93 H 01/13/21 12:20 Respiratory Rate 19 01/20/21 07:47 Respiratory Effort 01/20/21 04:09 Respiratory Depth Shallow 01/20/21 04:09 Respiratory Pattern Normal 01/20/21 04:09 Blood Pressure 138/74 01/20/21 07:47 Blood Pressure Mean 105 01/13/21 12:15 Blood Pressure Position Sitting 01/13/21 09:05 Pulse Oximetry 92 01/20/21 07:47 Oxygen Delivery Method Nasal Cannula 01/20/21 07:47 Oxygen Flow Rate 2 01/20/21 07:47 Fraction of Inspired Oxygen (FIO2) 25 01/20/21 08:14 Pain Level 0 01/20/21 07:47 Comment 01/14/21 11:05 Intake & Output 01/19/21 01/19/21 01/20/21 11:59 23:59 11:59 Intake Total 740 / 1230 490 / 1230 Output Total 1425 / 1425 1075 / 1075 Balance 740 / -195 -935 / -195 -1074 / -1074 Weight 148.4 kg 148.6 kg Intake: IV 250 / 500 250 / 500 Oral 490 / 730 240 / 730 Output: Urine 1425 / 1425 1075 / 1075 Other: Urine Color Yellow Yellow Yellow Urine Appearance Clear Clear Clear Urine Odor Normal Normal Stool Size Moderate Smear Stool Characteristics Formed Soft Brown Voiding Methods Bedside Commode Bedside Commode [facility] Medical History Acute on chronic respiratory failure with hypoxia and hypercapnia Altered mental status Arthritis Atrial fibrillation Cellulitis bilateral lower extremities Cellulitis CHF (congestive heart failure) Chronic respiratory failure with hypoxia COPD (chronic obstructive pulmonary disease) Diabetes mellitus Family history unobtainable due to patient's condition GERD (gastroesophageal reflux disease) Hypercholesterolemia Mood disorder Muscle weakness (generalized) Obesity Plaque psoriasis Pneumonia Streptococcal bacteremia Toxic metabolic encephalopathy Type 2 diabetes mellitus Surgical History H/O hand surgery right index finger removal of tendon sheath ganglion H/O: hysterectomy History of carpal tunnel surgery of right wrist History of excision of lesion abdominal cyst removed S/P appendectomy Family History Father Heart disease 2 MD, at 62 Mother Heart disease Social History Smoking/Tobacco Use Status: Former Tobacco Use Smoking risk assessment performed?: Yes Alcohol Intake: never Drug use: Never Substance use type: does not use Do you feel safe at home: Yes Do you feel safe in your relationship?: Yes
[2021-01-20 11:45] VITALS: BP 117/70; PULSE 74; RESP 20; TEMP 36.5; O2SAT 94
[2021-01-20 15:12] VITALS: BP 114/71; PULSE 72; RESP 18; TEMP 37; O2SAT 92
--- NOTE | 2021-01-20 17:09 | CMDISCH_ITS ---
- If Service Date Differs Date of service: 01/20/21 Time of Service: 17:09 LACE Index Scoring Tool - Questions: Length of Stay (in days): 7 - 13 Acuity (Admit via E.D.?): Yes Comorbidities: Diabetes w/o Complication, Congestive Heart Failure, Chronic Pulmonary Disease E.D. Visits: 7 - Answers: Total Score: 17 Risk of Readmission: High Risk Care Management Discharge Reason for Hospitalization: Acute on chronic respiratory failure, COPD exacerbation. Discharge Plan: Marlen will be discharged today, and transported to the [place] [facility] sleep study clinic. She will be transported via [employer] wheelchair van. Tomorrow morning she will be transported back to the [facility] via [employer] wheelchair van. The [facility] coordinated this appointment, RYAN coordinated transportation. She will follow up with her PCP and discharge plan of care. CM met with Marlen today, who reported that she feels ready for discharge and is agreeable with the plan. Patient/Family Education Needs: Review discharge instructions regarding activity levels and medications, discussion of self care needs including ask me three and goals of care. Services Needed at Discharge: Shelter Facility (The [facility]), Transportation ([facility] w[facility] van)
== END 2021-01-20 18:32 | disposition skilled nursing facility (03) | DRG 193 ==
LOC: ER 12:38 → MS 12:41
PROVIDERS: Internal Medicine; Admitting Provider Internal Medicine; Emergency Provider Physician Assistant; PCP Family Medicine; Visit Provider Internal Medicine
DX: J18.9 Pneumonia, unspecified organism (principal); J96.22 Acute and chronic respiratory failure with hypercapnia; J44.0 Chronic obstructive pulmonary disease with (acute) lower respiratory infection; E66.2 Morbid (severe) obesity with alveolar hypoventilation; Z68.43 Body mass index [BMI] 50.0-59.9, adult; Z20.822 Contact with and (suspected) exposure to COVID-19; I48.91 Unspecified atrial fibrillation; Z99.81 Dependence on supplemental oxygen; I27.20 Pulmonary hypertension, unspecified; Z79.01 Long term (current) use of anticoagulants; Z79.4 Long term (current) use of insulin; E11.9 Type 2 diabetes mellitus without complications; I50.9 Heart failure, unspecified; I11.0 Hypertensive heart disease with heart failure; K21.9 Gastro-esophageal reflux disease without esophagitis; L40.0 Psoriasis vulgaris; R53.1 Weakness; Z87.891 Personal history of nicotine dependence; B95.62 Methicillin resistant Staphylococcus aureus infection as the cause of diseases classified elsewhere; Z66 Do not resuscitate
CPT/HCPCS: 36410; 36415; 80048; 80053; 82805; 84145; 87040; 87081; 87449; 87635; 93005; 94640; 96365; 96375; 99291; 36600; 71045; 80202; 81003; 81015; 82565; 83605; 83735; 83880; 84132; 84484; 85025; 86140; 87581; 87899; 93010; 94660; 99232; 99233; 99239; J1940; J2930; J3490; J7512; J7613; J7620

== ENCOUNTER 2021-01-25 16:00 | Outpatient (REF) | payer MEDICARE, MEDICAID, SELFPAY | END 2021-01-25 16:01 | disposition home or self-care (01) | LOC: LBN 16:00 | PROVIDERS: PCP Family Medicine; Visit Provider Internal Medicine | DX: B95.62 Methicillin resistant Staphylococcus aureus infection as the cause of diseases classified elsewhere (principal); J18.9 Pneumonia, unspecified organism; Y95 Nosocomial condition | CPT/HCPCS: 87086 ==

== ENCOUNTER 2021-01-28 18:33 | Outpatient (REF) | payer MEDICARE, MEDICAID, SELFPAY ==
[2021-01-28 18:27] LABS: Iron 30 ug/dL (50-170)
[2021-01-28 18:54] LABS: ALT 27 U/L (14-59); AST 15 U/L (15-37); Albumin 3.1 g/dL (3.4-5.0); Alkaline Phosphatase 77 U/L (46-116); BUN 17 mg/dL (7-18); Bilirubin, Total 0.3 mg/dL (0.2-1.0); Calcium 9.2 mg/dL (8.5-10.1); Chloride 91 mmol/L (98-107); Ferritin 47 ng/mL (8-252); Glucose 187 mg/dL (74-106); Potassium 3.6 mmol/L (3.5-5.1); Sodium 141 mmol/L (136-145); TSH (W/Ref FT4) 1.86 uIU/mL (0.36-3.74); Total Protein 6.5 g/dL (6.4-8.2); Vitamin B12 1901 pg/mL (193-986)
[2021-01-28 19:16] LABS: Anion Gap 4.99999 mmol/L (3-11); Folate > 20.0 ng/mL (8.6-20.0)
[2021-01-28 19:17] LABS: CO2 > 45.0 mmol/L (21.0-32.0)
[2021-01-31 02:57] LABS: Vitamin D 25 Total 26.7 ng/mL (30-100)
== END 2021-01-28 18:34 | disposition home or self-care (01) ==
LOC: LBN 18:33
PROVIDERS: PCP Family Medicine; Visit Provider Internal Medicine
DX: E11.9 Type 2 diabetes mellitus without complications (principal); E03.9 Hypothyroidism, unspecified; I48.91 Unspecified atrial fibrillation; J96.22 Acute and chronic respiratory failure with hypercapnia
CPT/HCPCS: 80053; 82306; 82607; 82728; 82746; 83540; 84443

== ENCOUNTER 2021-01-29 00:04 | Outpatient (REF) | payer MEDICARE, MEDICAID, SELFPAY ==
[2021-01-27 20:10] LABS: Abs Immature Grans 0.16 10^3/uL (0.0-0.06); Absolute Basophil Count 0.04 10^3/uL (0.0-0.2); Absolute Eosinophil Count 0.06 10^3/uL (0.0-0.7); Basophils % 0.2; Eosinophils % 0.3; HCT 36.9 % (36.0-46.0); HGB 10.9 g/dL (11.2-15.7); Immature Grans % 0.9; Lymphocytes % 5.5; MCH 29.9 pg (27.0-33.0); MCHC 29.5 % (32.0-36.0); MCV 101.4 fL (80-95); MPV 9.5 fL (8.0-11.0); Monocytes % 1.8; Neutrophils % 91.3; Nucleated RBC 0 %; Platelet Count 378 10^3/uL (130-400); RBC 3.64 10^6/uL (3.93-5.22); RDW 14.8 % (11.7-14.6); RDW-SD 55.5 fL
[2021-01-27 20:17] LABS: Absolute Lymphocyte Count 1.01 10^3/uL (1.2-3.4); Absolute Monocyte Count 0.33 10^3/uL (0.1-0.8)
[2021-01-27 21:15] LABS: Hemoglobin A1C 7.8 % (<5.7)
== END 2021-01-29 00:05 | disposition home or self-care (01) ==
LOC: NCHCN 00:04
PROVIDERS: PCP Family Medicine; Visit Provider Internal Medicine
DX: E11.9 Type 2 diabetes mellitus without complications (principal); E03.9 Hypothyroidism, unspecified
CPT/HCPCS: 80053; 82306; 82607; 82728; 82746; 83036; 83540; 84443; 85025

== ENCOUNTER 2021-02-01 16:15 | Outpatient (REF) | payer MEDICARE, MEDICAID, SELFPAY ==
[2021-02-01 18:24] LABS: Abs Immature Grans 0.11 10^3/uL (0.0-0.06); Absolute Basophil Count 0.05 10^3/uL (0.0-0.2); Absolute Eosinophil Count 0.15 10^3/uL (0.0-0.7); Absolute Lymphocyte Count 1.39 10^3/uL (1.2-3.4); Absolute Neutrophil Count 9.54 10^3/uL (1.2-6.7); Basophils % 0.4; Eosinophils % 1.3; HCT 38.8 % (36.0-46.0); HGB 11.4 g/dL (11.2-15.7); Immature Grans % 0.9; Lymphocytes % 11.7; MCH 29.5 pg (27.0-33.0); MCHC 29.4 % (32.0-36.0); MCV 100.5 fL (80-95); Monocytes % 5.5; Neutrophils % 80.2; Nucleated RBC 0 %; RBC 3.86 10^6/uL (3.93-5.22); RDW 15.1 % (11.7-14.6); RDW-SD 55.9 fL
[2021-02-01 19:03] LABS: Absolute Monocyte Count 0.65 10^3/uL (0.1-0.8)
[2021-02-01 19:08] LABS: Diff Comment PLT Morph Reviewed; Macrocytosis 1+; Platelet Count 320 10^3/uL (130-400)
== END 2021-02-01 16:16 | disposition home or self-care (01) ==
LOC: LBN 16:15
PROVIDERS: PCP Family Medicine; Visit Provider Internal Medicine
DX: E03.9 Hypothyroidism, unspecified (principal); I48.91 Unspecified atrial fibrillation; J96.22 Acute and chronic respiratory failure with hypercapnia
CPT/HCPCS: 85025

== ENCOUNTER 2021-02-08 18:36 | Outpatient (REF) | payer MEDICARE, MEDICAID, SELFPAY ==
[2021-02-08 19:35] LABS: Abs Immature Grans 0.09 10^3/uL (0.0-0.06); Absolute Basophil Count 0.05 10^3/uL (0.0-0.2); Absolute Eosinophil Count 0.21 10^3/uL (0.0-0.7); Absolute Lymphocyte Count 2.38 10^3/uL (1.2-3.4); Absolute Monocyte Count 0.74 10^3/uL (0.1-0.8); Absolute Neutrophil Count 5.89 10^3/uL (1.2-6.7); Basophils % 0.5; Eosinophils % 2.2; HCT 37.5 % (36.0-46.0); Lymphocytes % 25.4; MCH 29.5 pg (27.0-33.0); MCHC 29.3 % (32.0-36.0); MCV 100.5 fL (80-95); MPV 9.6 fL (8.0-11.0); Monocytes % 7.9; Nucleated RBC 0 %; Platelet Count 318 10^3/uL (130-400); RBC 3.73 10^6/uL (3.93-5.22); RDW 15.5 % (11.7-14.6); RDW-SD 56.7 fL; WBC 9.36 10^3/uL (4.4-10.8)
== END 2021-02-08 18:37 | disposition home or self-care (01) ==
LOC: LBN 18:36
PROVIDERS: PCP Family Medicine; Visit Provider Internal Medicine
DX: E78.5 Hyperlipidemia, unspecified (principal); I50.813 Acute on chronic right heart failure; J44.1 Chronic obstructive pulmonary disease with (acute) exacerbation
CPT/HCPCS: 85025

== ENCOUNTER 2021-02-14 14:35 | Outpatient (REF) | payer SELFPAY | END 2021-02-14 14:36 | disposition home or self-care (01) | LOC: RT 14:35 | PROVIDERS: PCP Family Medicine; Visit Provider Family Medicine | DX: J96.22 Acute and chronic respiratory failure with hypercapnia (principal); J18.9 Pneumonia, unspecified organism; Y95 Nosocomial condition | CPT/HCPCS: 94762 ==

== ENCOUNTER 2021-02-15 18:25 | Outpatient (REF) | payer MEDICARE, MEDICAID, SELFPAY ==
[2021-02-15 22:09] LABS: Absolute Basophil Count 0.07 10^3/uL (0.0-0.2); Absolute Eosinophil Count 0.16 10^3/uL (0.0-0.7); Absolute Lymphocyte Count 2.52 10^3/uL (1.2-3.4); Absolute Monocyte Count 0.75 10^3/uL (0.1-0.8); Absolute Neutrophil Count 6.33 10^3/uL (1.2-6.7); Basophils % 0.7; Eosinophils % 1.6; HCT 39.3 % (36.0-46.0); HGB 11.5 g/dL (11.2-15.7); Lymphocytes % 25.4; MCH 29.7 pg (27.0-33.0); MCHC 29.3 % (32.0-36.0); MCV 101.6 fL (80-95); MPV 9.7 fL (8.0-11.0); Monocytes % 7.6; Neutrophils % 63.7; Nucleated RBC 0 %; Platelet Count 369 10^3/uL (130-400); RBC 3.87 10^6/uL (3.93-5.22); RDW 16.4 % (11.7-14.6); RDW-SD 60.1 fL; WBC 9.93 10^3/uL (4.4-10.8)
[2021-02-15 22:44] LABS: Anion Gap 3.7 mmol/L (3-11); BUN 15 mg/dL (7-18); CO2 42.3 mmol/L (21.0-32.0); CREATININE 0.9 mg/dL (0.55-1.02); Chloride 95 mmol/L (98-107); Glucose 188 mg/dL (74-106); Potassium 3.5 mmol/L (3.5-5.1); Sodium 141 mmol/L (136-145)
[2021-02-17 01:39] LABS: Vitamin D 25 Total 22.5 ng/mL (30-100)
== END 2021-02-15 18:26 | disposition home or self-care (01) ==
LOC: LBN 18:25
PROVIDERS: PCP Family Medicine; Visit Provider Internal Medicine
DX: L03.116 Cellulitis of left lower limb (principal); J96.22 Acute and chronic respiratory failure with hypercapnia; I87.302 Chronic venous hypertension (idiopathic) without complications of left lower extremity
CPT/HCPCS: 80048; 82306; 85025

== ENCOUNTER 2021-02-28 01:38 | Outpatient (REF) | payer SELFPAY ==
[2021-02-28] MEDS: Inhaler, Assist Device 1 EACH MC (11:14)
[2021-02-28] MEDS: Albuterol HFA 18 GM 200 PUFF INH IH (11:14)
--- NOTE | 2021-02-28 13:37 | W.PFT ---
Date of service: 02/28/21 Time of Service: 10:10 Pulmonary Function Test Result Requesting Provider Duchene Indications: Dyspnea Interpretation Spirometry: There is a restrictive pattern to spirometry. There is a significant bronchodilator response. Lung Volumes: Lung volumes are normal Diffusion Capacity: The diffusion is decreased Airway Pressure: Airways resistance is elevated Impression Restrictive spirometry that likely represents pseudo-restriction given the elevated BMI and normal lung volumes. There is a significant bronchodilator response. Clinical Correlation therefore is recommended.
== END 2021-02-28 01:39 | disposition home or self-care (01) ==
LOC: RT 01:38
PROVIDERS: PCP Family Medicine; Visit Provider Student in an Organized Health Care Education/Training Program
DX: R06.09 Other forms of dyspnea (principal); R94.2 Abnormal results of pulmonary function studies
CPT/HCPCS: 94060; 94726; 94729

== ENCOUNTER 2021-03-14 15:06 | Outpatient (REF) | payer MEDICARE, MEDICAID, SELFPAY ==
[2021-03-14 15:53] LABS: Abs Immature Grans 0.06 10^3/uL (0.0-0.06); Absolute Basophil Count 0.08 10^3/uL (0.0-0.2); Absolute Eosinophil Count 0.32 10^3/uL (0.0-0.7); Absolute Lymphocyte Count 2.66 10^3/uL (1.2-3.4); Absolute Monocyte Count 0.82 10^3/uL (0.1-0.8); Absolute Neutrophil Count 7.01 10^3/uL (1.2-6.7); Basophils % 0.7; Eosinophils % 2.9; HCT 41.2 % (36.0-46.0); HGB 11.9 g/dL (11.2-15.7); Immature Grans % 0.5; Lymphocytes % 24.3; MCH 30.3 pg (27.0-33.0); MCHC 28.9 % (32.0-36.0); MCV 104.8 fL (80-95); MPV 9.5 fL (8.0-11.0); Monocytes % 7.5; Neutrophils % 64.1; Nucleated RBC 0 %; Platelet Count 307 10^3/uL (130-400); RBC 3.93 10^6/uL (3.93-5.22); RDW 15.9 % (11.7-14.6); RDW-SD 62.1 fL; WBC 10.94 10^3/uL (4.4-10.8)
[2021-03-14 16:08] LABS: ALT 23 U/L (14-59); AST 22 U/L (15-37); Alkaline Phosphatase 84 U/L (46-116); Anion Gap 2.4 mmol/L (3-11); BUN 14 mg/dL (7-18); Bilirubin, Total 0.2 mg/dL (0.2-1.0); CO2 42.6 mmol/L (21.0-32.0); Chloride 97 mmol/L (98-107); Glucose 168 mg/dL (74-106); Potassium 3.7 mmol/L (3.5-5.1); Sodium 142 mmol/L (136-145); Total Protein 6.7 g/dL (6.4-8.2)
== END 2021-03-14 15:07 | disposition home or self-care (01) ==
LOC: LBN 15:06
PROVIDERS: PCP Family Medicine; Visit Provider Nurse Practitioner Gerontology
DX: E11.9 Type 2 diabetes mellitus without complications (principal); J96.21 Acute and chronic respiratory failure with hypoxia
CPT/HCPCS: 80053; 85025

== ENCOUNTER 2021-03-15 09:08 | Outpatient (REF) | payer MEDICARE, MEDICAID, SELFPAY ==
[2021-03-15 10:57] LABS: Abs Immature Grans 0.06 10^3/uL (0.0-0.06); Absolute Basophil Count 0.06 10^3/uL (0.0-0.2); Absolute Eosinophil Count 0.41 10^3/uL (0.0-0.7); Absolute Lymphocyte Count 2.46 10^3/uL (1.2-3.4); Absolute Monocyte Count 0.66 10^3/uL (0.1-0.8); Absolute Neutrophil Count 6.34 10^3/uL (1.2-6.7); Basophils % 0.6; Eosinophils % 4.1; HCT 39.5 % (36.0-46.0); HGB 11.6 g/dL (11.2-15.7); Immature Grans % 0.6; Lymphocytes % 24.6; MCH 30.7 pg (27.0-33.0); MCHC 29.4 % (32.0-36.0); MCV 104.5 fL (80-95); MPV 9.6 fL (8.0-11.0); Monocytes % 6.6; Neutrophils % 63.5; Nucleated RBC 0 %; Platelet Count 310 10^3/uL (130-400); RBC 3.78 10^6/uL (3.93-5.22); RDW 15.9 % (11.7-14.6); RDW-SD 61.1 fL; WBC 9.99 10^3/uL (4.4-10.8)
== END 2021-03-15 09:09 | disposition home or self-care (01) ==
LOC: LBN 09:08
PROVIDERS: PCP Family Medicine; Visit Provider Nurse Practitioner Gerontology
DX: L03.116 Cellulitis of left lower limb (principal); J96.21 Acute and chronic respiratory failure with hypoxia; J44.1 Chronic obstructive pulmonary disease with (acute) exacerbation
CPT/HCPCS: 85025

== ENCOUNTER 2021-03-17 13:48 | Outpatient (REF) | payer MEDICARE, MEDICAID, SELFPAY | END 2021-03-17 13:49 | disposition home or self-care (01) | LOC: LBN 13:48 | PROVIDERS: PCP Family Medicine; Visit Provider Nurse Practitioner Gerontology | CPT/HCPCS: 85027 ==

== ENCOUNTER 2021-03-18 09:34 | Outpatient (REF) | payer MEDICARE, MEDICAID, SELFPAY ==
[2021-03-18 10:43] LABS: Abs Immature Grans 0.05 10^3/uL (0.0-0.06); Absolute Basophil Count 0.07 10^3/uL (0.0-0.2); Absolute Eosinophil Count 0.39 10^3/uL (0.0-0.7); Absolute Lymphocyte Count 2.64 10^3/uL (1.2-3.4); Absolute Monocyte Count 0.63 10^3/uL (0.1-0.8); Absolute Neutrophil Count 5.64 10^3/uL (1.2-6.7); Basophils % 0.7; Eosinophils % 4.1; HCT 42.6 % (36.0-46.0); HGB 12.6 g/dL (11.2-15.7); Immature Grans % 0.5; MCH 30.4 pg (27.0-33.0); MCHC 29.6 % (32.0-36.0); MCV 102.9 fL (80-95); MPV 9.4 fL (8.0-11.0); Monocytes % 6.7; Nucleated RBC 0 %; Platelet Count 327 10^3/uL (130-400); RBC 4.14 10^6/uL (3.93-5.22); RDW 15.9 % (11.7-14.6); WBC 9.42 10^3/uL (4.4-10.8)
== END 2021-03-18 09:35 | disposition home or self-care (01) ==
LOC: LBN 09:34
PROVIDERS: PCP Family Medicine; Visit Provider Internal Medicine
DX: J44.1 Chronic obstructive pulmonary disease with (acute) exacerbation (principal); J96.21 Acute and chronic respiratory failure with hypoxia; E11.9 Type 2 diabetes mellitus without complications
CPT/HCPCS: 85025

== ENCOUNTER 2021-04-11 22:18 | Emergency (ER) | payer MEDICARE, MEDICAID, SELFPAY ==
[2021-04-11 22:18] VITALS: BP 131/41; PULSE 86; RESP 18; TEMP 36.5; O2SAT 91
[2021-04-11] MEDS: Phenylephrine SPRAY 1% 15 ML BTL NS (22:26)
[2021-04-11] MEDS: Tranexamic Acid 1,000 MG/10 ML VIAL 500 MG NS (22:26)
--- NOTE | 2021-04-11 22:56 | W.ED.GENAD ---
Discharge Plan Disposition Patient Disposition: HOME Condition: Stable Discharge Details Clinical Impression: Epistaxis Primary Care Provider: Evi Cloud ED Provider: Vivi Smalls Home Meds and New Rx's Prescriptions: New doxycycline hyclate 100 mg tablet,delayed release (DR/EC) 100 mg PO BID Qty: 6 RF: 0 Continued pantoprazole 20 mg tablet,delayed release (DR/EC) 20 mg PO BID RF: 0 acetaminophen [Tylenol] 325 mg capsule 325 mg PO ONCE PRNRF: 0 apixaban 5 mg tablet 5 mg PO BID RF: 0 Stiolto Respimat 2.5-2.5 mcg/actuation mist 2 puff inhalation DAILY Qty: 4 RF: 12 (DME) BiPap See Rx Instructions .Route .MEDSUPPLY Qty: 1 RF: 0 aspirin 81 mg Tablet,Delayed Release (Dr/Ec) 81 mg PO QAM RF: 0 diltiazem HCl [DILT-XR] 240 mg capsule,ext.rel 24h degradable 240 mg PO QAM RF: 0 folic acid 1 mg Tablet 1 mg PO QAM RF: 0 cyanocobalamin (vitamin B-12) [Vitamin B-12] 100 mcg Tablet 1,000 mcg PO QAM RF: 0 budesonide-formoterol [Symbicort] 160-4.5 mcg/actuation HFA aerosol inhaler 2 inh INHALATION BID RF: 0 albuterol sulfate 90 mcg/actuation HFA aerosol inhaler 2 inh INHALATION .Q4H,PRN PRNRF: 0 acetaminophen [Tylenol] 325 mg Tablet 650 mg PO Q4H PRNRF: 0 epinephrine 0.3 mg/0.3 mL Auto-Injector 0.3 mg IM PRN PRNRF: 0 amiodarone 200 mg tablet 200 mg PO DAILY RF: 0 citalopram 40 mg tablet 20 mg PO QAM RF: 0 furosemide [Lasix] 20 mg tablet 80 mg PO BID RF: 0 tolterodine 4 mg capsule,extended release 24hr 4 mg PO DAILY AM RF: 0 potassium chloride 10 mEq tablet extended release 10 meq PO DAILY AM RF: 0 Spiriva with HandiHaler 18 mcg Capsule, W/Inhalation Device 1 cap INHALATION DAILY RF: 0 ascorbic acid (vitamin C) [Vitamin C] 500 mg Tablet 500 mg PO BID RF: 0 gabapentin 300 mg Capsule 300 mg PO HS RF: 0 [place] Saline Gel [place],Non-Aerosol 1 spray INTRANASAL DAILY RF: 0 cholecalciferol (vitamin D3) 1,250 mcg (50,000 unit) Capsule 50,000 unit PO .1X/WEEK RF: 0 Lantus Solostar U-100 Insulin 100 unit/mL (3 mL) Insulin Pen 20 unit SUBCUT HS Qty: 0 RF: 0 levothyroxine 100 mcg Tablet 100 mcg PO DAILY RF: 0 polyethylene glycol 3350 [Miralax] 17 gram/dose Powder 17 g PO DAILY RF: 0 insulin aspart U-100 100 unit/mL (3 mL) Insulin Pen 1 sliding scale dose SUBCUT USEASDIRECTD RF: 0 metformin 500 mg tablet 750 mg PO BID RF: 0 triamcinolone acetonide 0.025 % cream 0 applic TOPICAL DIRECTED RF: 0 Trulicity 0.75 mg/0.5 mL pen injector 0.75 mg SUBCUT QWEEK RF: 0 Trulicity 1.5 mg/0.5 mL pen injector 1.5 mg SUBCUT QWEEK RF: 0 ferrous sulfate 325 mg (65 mg iron) Tablet 325 mg PO BID RF: 0 T Gel Shampoo 1 applic topical .SUNDAY RF: 0 fluconazole [Diflucan] 200 mg Tablet 200 mg PO QWEEK RF: 0 tramadol 50 mg tablet 50 mg PO Q6H PRNRF: 0 Trulicity 1.5 mg/0.5 mL pen injector 1.5 mg SUBCUT QWEEK RF: 0 Discharge Instructions Additional Instructions: Take antibiotic as prescribed while you have the nasal tampon in place This will need to be removed in 72 hours i have placed referral to ENT, you may also return here for removal it is important that your tampon was taken out within 72 hours Given your history of atrial fibrillation, my recommendation is that you continue taking your Eliquis Refrain from trying to remove the tampon from your nose Use caution with coughing or sneezing Do not blow your nose Stop taking your iron while you are on the doxycycline Humidified oxygen, coat your nostril twice a day with Vaseline Humidified air in your room Referrals: Deon Grey MD [ [facility] STAFF PHYSICIAN] - Discharge Data Discharge Date/Time-TO BE ENTERED AT DEPARTURE: 04/12/21 00:11 Medical Decision Making Given patient's anticoagulated state, mild hypertension, and persistent bleeding without obvious, a 4.5 cm nasal tampon was applied This is a candidate and TXA She was observed for approximately an hour with good hemostasis No posterior bleeding noted trauma ENT follow-up in 72 hours for removal Rhino Rocket was instructed Placed on doxycycline as patient is penicillin allergic Return discussed patient expressed understanding, remained alert and oriented, labs stable patient when compared to prior Returning to [facility] at time of discharge the Medical Records Medical records reviewed: Yes I reviewed the patient's medical records. Lab Data Lab results reviewed: Yes I reviewed the patient's lab results. HPI General Mode of arrival: EMS. Date/Time Provider Initiated Documentation: 04/11/21 22:55. Limitations to Documentation: no limitations. Information obtained by: patient. HPI Narrative: This very pleasant 76-year-old female with history of COPD, oxygen dependency, atrial fibrillation anticoagulated on Eliquis presents with report of epistaxis throughout the day today. She has had 3 episodes per shelter. They feel it is in the right nostril. Patient denies any significant weakness or dizziness. She denies any chest pain or shortness of breath. She denies any difficulty swallowing but does state that she feels a small amount of blood dripping down the back of her throat. She states it happened before but it been several months. She is unsure as to whether or not she had her naris cauterized in the past. She denies history of having to go to the OR for intervention. Related Data Home Medications Medication Instructions Recorded Confirmed acetaminophen [Tylenol] 650 mg PO Q4H PRN 01/14/20 04/14/21 albuterol sulfate 2 inh INHALATION .Q4H,PRN PRN 01/14/20 04/14/21 aspirin 81 mg PO QAM 01/14/20 04/14/21 budesonide-formoterol [Symbicort] 2 inh INHALATION BID 01/14/20 04/14/21 cyanocobalamin (vitamin B-12) 1,000 mcg PO QAM 01/14/20 04/14/21 [Vitamin B-12] diltiazem HCl [DILT-XR] 240 mg PO QAM 01/14/20 04/14/21 epinephrine 0.3 mg IM PRN PRN 01/14/20 04/14/21 folic acid 1 mg PO QAM 01/14/20 04/14/21 T Gel Shampoo 1 applic TOPICAL .Sunday03/07/20 04/14/21 ferrous sulfate 325 mg PO BID 03/07/20 04/14/21 amiodarone 200 mg tablet 200 mg PO DAILY tab 12/02/20 04/14/21 citalopram 40 mg tablet 20 mg PO QAM tab 12/02/20 04/14/21 furosemide 20 mg tablet 80 mg PO BID tab 12/02/20 04/14/21 pantoprazole 20 mg tablet,delayed 20 mg PO BID tab 12/02/20 04/14/21 release potassium chloride 10 meq PO DAILY AM 12/12/20 04/14/21 tolterodine 4 mg PO DAILY AM 12/12/20 04/14/21 [place] Saline Gel 1 spray INTRANASAL DAILY 12/14/20 04/14/21 Spiriva with HandiHaler 1 cap INHALATION DAILY 12/14/20 04/14/21 ascorbic acid (vitamin C) [Vitamin 500 mg PO BID 12/14/20 04/14/21 C] cholecalciferol (vitamin D3) 50,000 unit PO .1X/WEEK 12/14/20 04/14/21 gabapentin 300 mg PO HS 12/14/20 04/14/21 Lantus Solostar U-100 Insulin 20 unit SUBCUT HS #0 ml 12/16/20 04/14/21 insulin aspart U-100 1 sliding scale dose SUBCUT 01/02/21 04/14/21 USEASDIRECTD levothyroxine 100 mcg PO DAILY 01/02/21 04/14/21 polyethylene glycol 3350 [Miralax] 17 g PO DAILY 01/02/21 04/14/21 Trulicity 0.75 mg SUBCUT QWEEK 01/06/21 04/14/21 Trulicity 1.5 mg SUBCUT QWEEK 01/06/21 04/14/21 metformin 750 mg PO BID 01/06/21 04/14/21 triamcinolone acetonide 0 applic TOPICAL DIRECTED 01/06/21 04/14/21 BiPap #1 ea 02/14/21 04/14/21 acetaminophen 325 mg capsule 325 mg PO ONCE PRN 02/21/21 04/14/21 apixaban 5 mg tablet 5 mg PO BID 02/21/21 04/14/21 tiotropium 2.5 mcg-olodaterol 2.5 2 puff INHALATION DAILY #4 g 02/21/21 04/14/21 mcg/actuation mist for inhalation Trulicity 1.5 mg SUBCUT QWEEK 04/11/21 04/14/21 doxycycline hyclate 100 mg PO BID #6 tab 04/11/21 04/14/21 fluconazole [Diflucan] 200 mg PO QWEEK 04/11/21 04/14/21 tramadol 50 mg PO Q6H PRN 04/11/21 04/14/21 Previous Rx's Medication Instructions Recorded Lantus Solostar U-100 Insulin 20 unit SUBCUT HS #0 ml 12/16/20 BiPap #1 ea 02/14/21 tiotropium 2.5 mcg-olodaterol 2.5 2 puff INHALATION DAILY #4 g 02/21/21 mcg/actuation mist for inhalation doxycycline hyclate 100 mg PO BID #6 tab 04/11/21 Allergies Allergy/AdvReac Type Severity Reaction Status Date / Time bee venom protein (honey bee) Allergy Unknown Verified 04/14/21 11:31 Penicillins Allergy Unknown Verified 04/14/21 11:31 strawberry Allergy Unknown Verified 04/14/21 11:31 General Stated Complaint: Epistaxis KENDRICK: 3 Review of Systems All systems reviewed & are unremarkable except as noted in HPI and below PFSH All Active Problems (Updated 04/14/21 @ 13:02 by Deon Grey MD) Anterior epistaxis (Acute) Epistaxis (Acute) COVID-19 (Acute) Pulmonary nodule (Acute) COPD (chronic obstructive pulmonary disease) (Chronic) Respiratory failure with hypoxia and hypercapnia (Acute) Morbid obesity (Acute) Vitamin D deficiency (Acute) MRSA (methicillin resistant staph aureus) culture positive (Acute) Hypoxia (Acute) Hypothyroidism (Chronic) Bilateral cellulitis of lower leg (Acute) Localized swelling of both lower legs (Acute) On amiodarone therapy (Acute) Palliative care patient (Acute) Cellulitis of left lower leg (Acute) Atrial fibrillation (Chronic) Plaque psoriasis (Acute) GERD (gastroesophageal reflux disease) (Chronic) Hypercholesterolemia (Acute) Type 2 diabetes mellitus (Chronic) Discharge planning issues (Acute) DVT prophylaxis (Acute) Obesity (Chronic) CHF (congestive heart failure) (Chronic) Family history unobtainable due to patient's condition (Acute) Medical History Acute and chronic respiratory failure with hypercapnia Acute exacerbation of chronic obstructive pulmonary disease Acute on chronic respiratory failure with hypoxia and hypercapnia Acute respiratory distress Acute respiratory distress Altered mental status Arthritis Cellulitis bilateral lower extremities Cellulitis CHF (congestive heart failure) Chronic atrial fibrillation, unspecified Chronic respiratory failure with hypoxia COPD (chronic obstructive pulmonary disease) Diabetes mellitus HCAP (healthcare-associated pneumonia) HCAP (healthcare-associated pneumonia) HCAP (healthcare-associated pneumonia) Methicillin susceptible Staphylococcus aureus infection as the cause of diseases classified elsewhere Mood disorder Morbid (severe) obesity with alveolar hypoventilation Muscle weakness (generalized) Obesity Pneumonia Sepsis Sepsis Streptococcal bacteremia Toxic metabolic encephalopathy Type 2 diabetes mellitus with hyperglycemia Surgical History H/O hand surgery right index finger removal of tendon sheath ganglion H/O: hysterectomy History of carpal tunnel surgery of right wrist History of excision of lesion abdominal cyst removed S/P appendectomy Family History Father Heart disease 2 [place], at 62 Mother Heart disease Social History Smoking/Tobacco Use Status: Former Tobacco Use Smoking risk assessment performed?: Yes Alcohol Intake: never Drug use: Never Substance use type: does not use Do you feel safe at home: Yes Do you feel safe in your relationship?: Yes Exam Const General: cooperative and no acute distress HENMT Other: Scant amount of blood noted to posterior oropharynx, blood noted in right nare, no clot formation, no obvious source noted, left nare without significant bleeding Eyes Pupils: PERRL Resp Effort & Inspection: normal respiratory effort Auscultation: clear to auscultation bilaterally Cardio Rate: regular rate Rhythm: regular rhythm Skin General skin exam: no rashes or lesions noted Other: No pallor Neuro General: patient alert and patient oriented x3 Course Vital Signs Vital signs: Vital Signs Temperature 36.5 C 04/11/21 22:18 Pulse 86 04/11/21 22:18 Respiratory Rate 18 04/11/21 22:18 Blood Pressure 131/41 L 04/11/21 22:18 Pulse Oximetry 91 L 04/11/21 22:18 Temperature 36.5 C 04/11/21 22:18 Temperature Source Skin 04/11/21 22:18 Pulse 86 04/11/21 22:18 Respiratory Rate 18 04/11/21 22:18 Blood Pressure 131/41 L 04/11/21 22:18 Pulse Oximetry 91 L 04/11/21 22:18 Oxygen Delivery Method Nasal Cannula 04/11/21 22:18 Oxygen Flow Rate 0 04/11/21 22:18 Pain Level 81 04/11/21 22:18 Procedures Epistaxis Control Time Out Performed: Yes Nostril: right Nose Prepped With: phenylephrine Direct Inspection: yes and unable to visualize Clots Removed by: blowing nose Cautery Used: none Device Inserted: nasal tampon Device Size: 4
[2021-04-11 23:03] LABS: Abs Immature Grans 0.12 10^3/uL (0.0-0.06); Absolute Basophil Count 0.06 10^3/uL (0.0-0.2); Absolute Eosinophil Count 0.33 10^3/uL (0.0-0.7); Absolute Lymphocyte Count 2.58 10^3/uL (1.2-3.4); Absolute Monocyte Count 0.78 10^3/uL (0.1-0.8); Absolute Neutrophil Count 7.15 10^3/uL (1.2-6.7); Basophils % 0.5; HCT 37.8 % (36.0-46.0); HGB 11.3 g/dL (11.2-15.7); Immature Grans % 1.1; Lymphocytes % 23.4; MCH 30.4 pg (27.0-33.0); MCHC 29.9 % (32.0-36.0); MCV 101.6 fL (80-95); MPV 8.3 fL (8.0-11.0); Monocytes % 7.1; Neutrophils % 64.9; Nucleated RBC 0 %; Platelet Count 325 10^3/uL (130-400); RBC 3.72 10^6/uL (3.93-5.22); RDW 14.7 % (11.7-14.6); RDW-SD 54.4 fL; WBC 11.02 10^3/uL (4.4-10.8)
--- NOTE | 2021-04-11 23:48 | NUR.NOTE ---
Nursing Note: PT INFO FAXED TO ENT TO BE SEEN WITHIN 72 HOURS FOR NASAL PACKING REMOVAL. HAYLIE, ED
[2021-04-11 23:57] VITALS: BP 120/86; PULSE 82; RESP 16; O2SAT 96
[2021-04-12] MEDS: Doxycycline Hyclate 100 MG CAP PO
== END 2021-04-12 00:11 | disposition home or self-care (01) ==
PROVIDERS: Emergency Provider Physician Assistant; PCP Family Medicine
DX: R04.0 Epistaxis (principal); Z79.01 Long term (current) use of anticoagulants
CPT/HCPCS: 30901; 36415; 80048; 85025

== ENCOUNTER 2021-04-12 15:44 | Outpatient (REF) | payer MEDICARE, MEDICAID, SELFPAY ==
[2021-04-12 16:32] LABS: Absolute Basophil Count 0.07 10^3/uL (0.0-0.2); Absolute Eosinophil Count 0.33 10^3/uL (0.0-0.7); Absolute Lymphocyte Count 2.18 10^3/uL (1.2-3.4); Absolute Monocyte Count 0.66 10^3/uL (0.1-0.8); Basophils % 0.6; HCT 39.1 % (36.0-46.0); HGB 11.6 g/dL (11.2-15.7); Immature Grans % 0.9; Lymphocytes % 19.9; MCH 30.4 pg (27.0-33.0); MCHC 29.7 % (32.0-36.0); MCV 102.6 fL (80-95); MPV 9.2 fL (8.0-11.0); Neutrophils % 69.6; Nucleated RBC 0 %; Platelet Count 378 10^3/uL (130-400); RBC 3.81 10^6/uL (3.93-5.22); RDW 14.8 % (11.7-14.6); RDW-SD 55.3 fL; WBC 10.97 10^3/uL (4.4-10.8)
[2021-04-12 16:43] LABS: Absolute Neutrophil Count 7.64 10^3/uL (1.2-6.7)
[2021-04-12 16:54] LABS: ALT 21 U/L (14-59); AST 19 U/L (15-37); Albumin 2.9 g/dL (3.4-5.0); Alkaline Phosphatase 75 U/L (46-116); Anion Gap 4.4 mmol/L (3-11); BUN 17 mg/dL (7-18); Bilirubin, Total 0.2 mg/dL (0.2-1.0); CO2 39.6 mmol/L (21.0-32.0); CREATININE 0.9 mg/dL (0.55-1.02); Calcium 8.9 mg/dL (8.5-10.1); Chloride 94 mmol/L (98-107); Glucose 136 mg/dL (74-106); Sodium 138 mmol/L (136-145); Total Protein 6.7 g/dL (6.4-8.2)
[2021-04-14 05:10] LABS: Vitamin D 25 Total 23.2 ng/mL (30-100)
== END 2021-04-12 15:45 | disposition home or self-care (01) ==
LOC: LBN 15:44
PROVIDERS: PCP Family Medicine; Visit Provider Nurse Practitioner Gerontology
DX: U07.1 COVID-19 (principal); E55.9 Vitamin D deficiency, unspecified; E78.5 Hyperlipidemia, unspecified; J96.21 Acute and chronic respiratory failure with hypoxia; J44.1 Chronic obstructive pulmonary disease with (acute) exacerbation
CPT/HCPCS: 80053; 82306; 85025

== ENCOUNTER 2021-04-14 17:11 | Outpatient (REF) | payer MEDICARE, MEDICAID, SELFPAY ==
[2021-04-14 17:33] LABS: Absolute Basophil Count 0.09 10^3/uL (0.0-0.2); Absolute Eosinophil Count 0.24 10^3/uL (0.0-0.7); Absolute Monocyte Count 1.12 10^3/uL (0.1-0.8); Basophils % 0.5; Eosinophils % 1.4; HCT 38.3 % (36.0-46.0); HGB 11.5 g/dL (11.2-15.7); Immature Grans % 0.6; Lymphocytes % 12.6; MCH 30.7 pg (27.0-33.0); MCV 102.1 fL (80-95); MPV 8.9 fL (8.0-11.0); Monocytes % 6.6; Neutrophils % 78.3; Nucleated RBC 0 %; Platelet Count 310 10^3/uL (130-400); RBC 3.75 10^6/uL (3.93-5.22); RDW 15.1 % (11.7-14.6)
[2021-04-14 17:35] LABS: Absolute Lymphocyte Count 2.14 10^3/uL (1.2-3.4); Absolute Neutrophil Count 13.31 10^3/uL (1.2-6.7)
[2021-04-14 17:37] LABS: Anion Gap 2.4 mmol/L (3-11); BUN 12 mg/dL (7-18); CO2 42.6 mmol/L (21.0-32.0); CREATININE 0.8 mg/dL (0.55-1.02); Chloride 93 mmol/L (98-107); Glucose 112 mg/dL (74-106); Potassium 3.8 mmol/L (3.5-5.1); Sodium 138 mmol/L (136-145)
== END 2021-04-14 17:12 | disposition home or self-care (01) ==
LOC: LBN 17:11
PROVIDERS: PCP Family Medicine; Visit Provider Nurse Practitioner Gerontology
DX: R06.89 Other abnormalities of breathing (principal); R91.1 Solitary pulmonary nodule; J44.9 Chronic obstructive pulmonary disease, unspecified; E03.9 Hypothyroidism, unspecified
CPT/HCPCS: 80048; 85025

== ENCOUNTER 2021-04-15 10:30 | Inpatient (IN) | payer MEDICARE, MEDICAID, SELFPAY ==
--- NOTE | 2021-04-15 10:28 | ED.GENADUL_ITS ---
Discharge Plan Disposition Patient Disposition: [facility] INPATIENT Condition: Stable Discharge Details Chief Complaint: GenMedical Clinical Impression: Cellulitis, Pneumonia, Hypercarbia Primary Care Provider: Evi Cloud ED Provider: Bruno Barth Home Meds and New Rx's Prescriptions: No Action pantoprazole 20 mg tablet,delayed release (DR/EC) 20 mg PO BID RF: 0 acetaminophen [Tylenol] 325 mg capsule 325 mg PO ONCE PRNRF: 0 apixaban 5 mg tablet 5 mg PO BID RF: 0 Stiolto Respimat 2.5-2.5 mcg/actuation mist 2 puff inhalation DAILY Qty: 4 RF: 12 (DME) BiPap See Rx Instructions .Route .MEDSUPPLY Qty: 1 RF: 0 aspirin 81 mg Tablet,Delayed Release (Dr/Ec) 81 mg PO QAM RF: 0 diltiazem HCl [DILT-XR] 240 mg capsule,ext.rel 24h degradable 240 mg PO QAM RF: 0 folic acid 1 mg Tablet 1 mg PO QAM RF: 0 cyanocobalamin (vitamin B-12) [Vitamin B-12] 100 mcg Tablet 1,000 mcg PO QAM RF: 0 budesonide-formoterol [Symbicort] 160-4.5 mcg/actuation HFA aerosol inhaler 2 inh INHALATION BID RF: 0 albuterol sulfate 90 mcg/actuation HFA aerosol inhaler 2 inh INHALATION .Q4H,PRN PRNRF: 0 acetaminophen [Tylenol] 325 mg Tablet 650 mg PO Q4H PRNRF: 0 epinephrine 0.3 mg/0.3 mL Auto-Injector 0.3 mg IM PRN PRNRF: 0 amiodarone 200 mg tablet 200 mg PO DAILY RF: 0 citalopram 40 mg tablet 20 mg PO QAM RF: 0 furosemide [Lasix] 20 mg tablet 80 mg PO BID RF: 0 tolterodine 4 mg capsule,extended release 24hr 4 mg PO DAILY AM RF: 0 potassium chloride 10 mEq tablet extended release 10 meq PO DAILY AM RF: 0 Spiriva with HandiHaler 18 mcg Capsule, W/Inhalation Device 1 cap INHALATION DAILY RF: 0 ascorbic acid (vitamin C) [Vitamin C] 500 mg Tablet 500 mg PO BID RF: 0 gabapentin 300 mg Capsule 300 mg PO HS RF: 0 [place] Saline Gel [place],Non-Aerosol 1 spray INTRANASAL DAILY RF: 0 cholecalciferol (vitamin D3) 1,250 mcg (50,000 unit) Capsule 50,000 unit PO .1X/WEEK RF: 0 Lantus Solostar U-100 Insulin 100 unit/mL (3 mL) Insulin Pen 20 unit SUBCUT HS Qty: 0 RF: 0 levothyroxine 100 mcg Tablet 100 mcg PO DAILY RF: 0 polyethylene glycol 3350 [Miralax] 17 gram/dose Powder 17 g PO DAILY RF: 0 insulin aspart U-100 100 unit/mL (3 mL) Insulin Pen 1 sliding scale dose SUBCUT USEASDIRECTD RF: 0 metformin 500 mg tablet 750 mg PO BID RF: 0 triamcinolone acetonide 0.025 % cream 0 applic TOPICAL DIRECTED RF: 0 Trulicity 0.75 mg/0.5 mL pen injector 0.75 mg SUBCUT QWEEK RF: 0 Trulicity 1.5 mg/0.5 mL pen injector 1.5 mg SUBCUT QWEEK RF: 0 clindamycin HCl 300 mg capsule 450 mg PO TID RF: 0 Acidophilus Tablet 1 tab PO TID RF: 0 amoxicillin-pot clavulanate 875-125 mg tablet 1 tab PO BID RF: 0 ferrous sulfate 325 mg (65 mg iron) Tablet 325 mg PO BID RF: 0 T Gel Shampoo 1 applic topical .SUNDAY RF: 0 fluconazole [Diflucan] 200 mg Tablet 200 mg PO QWEEK RF: 0 tramadol 50 mg tablet 50 mg PO Q6H PRNRF: 0 Trulicity 1.5 mg/0.5 mL pen injector 1.5 mg SUBCUT QWEEK RF: 0 Medical Decision Making 70-year-old female who lives at [facility]. She was referred in transfer by EMS for concern of brawny edema of the lower extremity with a history of cellulitis, some increased exertional dyspnea, and this morning was found to be hypoxic to 70% at the long-term, with increased oxygen requirement up to 6 L in transport. Patient will endorse having a persistent cough. She notes her legs to be chronically edematous and to have frequent bouts of cellulitis. She was started on Augmentin and doxycycline on April 13 for lower extremity cellulitis. She arrives to the ER pleasant, alert and interactive. She is oxygenating 90 to 92% on 2 to 4 L oxygen. Differential diagnosis includes CHF, cellulitis, must include VT. Patient IV access established, referred for laboratory testing, EKG, chest x-ray. Laboratories will note an ABG showing pH 7.39, PCO2 75, PO2 115. White blood cell count of 11, hematocrit 37, platelets 287. There is predominance of absolute neutrophils. Venous lactate 1.9. Sodium 137, potassium 3.3, chloride 93, bicarb 43 BUN 12, creatinine 1.0, troponin negative, BNP 126. Chest x-ray with right basilar infiltrate. SARS-CoV-2 PCR is negative as is influenza/RSV. The patient has had persistent cellulitis despite treatment with Augmentin and doxycycline at home. Additionally, given the patient's hypoxia reported 70% at home, need for increased supplemental nasal cannula oxygen here, question of basilar infiltrate and moderate hypercarbia I do feel she merits admission for antibiotics. She has a mild COPD exacerbation and will merit steroid and beta agonist therapy as well. I will order a lower extremity ultrasound to rule out DVT. HPI General Mode of arrival: EMS . Date/Time Provider Initiated Documentation: 04/15/21 10:37 . Limitations to Documentation: no limitations . Information obtained by: patient, EMS and RN notes reviewed . History of Present Illness 70 year old F presents to the emergency department with the chief complaint of Report of elevated CO2, persistent cellulitis of the legs, exertional dyspn, described as moderate and similar to prior episodes, and is localized to the chest and lower extremity. Patient started experiencing this day(s) No relieving factors improve symptom(s), No exacerbating factors reported . Patient notes cough and shortness of breath; denies syncope. Patient did receive the following treatments prior to arrival, none Related Data Home Medications Medication Instructions Recorded Confirmed acetaminophen [Tylenol] 650 mg PO Q4H PRN 01/14/20 04/15/21 albuterol sulfate 2 inh INHALATION .Q4H,PRN PRN 01/14/20 04/15/21 aspirin 81 mg PO QAM 01/14/20 04/15/21 budesonide-formoterol [Symbicort] 2 inh INHALATION BID 01/14/20 04/15/21 cyanocobalamin (vitamin B-12) 1,000 mcg PO QAM 01/14/20 04/15/21 [Vitamin B-12] diltiazem HCl [DILT-XR] 240 mg PO QAM 01/14/20 04/15/21 epinephrine 0.3 mg IM PRN PRN 01/14/20 04/15/21 folic acid 1 mg PO QAM 01/14/20 04/15/21 T Gel Shampoo 1 applic TOPICAL .Sunday03/07/20 04/15/21 ferrous sulfate 325 mg PO BID 03/07/20 04/15/21 amiodarone 200 mg tablet 200 mg PO DAILY tab 12/02/20 04/15/21 citalopram 40 mg tablet 20 mg PO QAM tab 12/02/20 04/15/21 furosemide 20 mg tablet 80 mg PO BID tab 12/02/20 04/15/21 pantoprazole 20 mg tablet,delayed 20 mg PO BID tab 12/02/20 04/15/21 release potassium chloride 10 meq PO DAILY AM 12/12/20 04/15/21 tolterodine 4 mg PO DAILY AM 12/12/20 04/15/21 [place] Saline Gel 1 spray INTRANASAL DAILY 12/14/20 04/15/21 Spiriva with HandiHaler 1 cap INHALATION DAILY 12/14/20 04/15/21 ascorbic acid (vitamin C) [Vitamin 500 mg PO BID 12/14/20 04/15/21 C] cholecalciferol (vitamin D3) 50,000 unit PO .1X/WEEK 12/14/20 04/15/21 gabapentin 300 mg PO HS 12/14/20 04/15/21 Lantus Solostar U-100 Insulin 20 unit SUBCUT HS #0 ml 12/16/20 04/15/21 insulin aspart U-100 1 sliding scale dose SUBCUT 01/02/21 04/15/21 USEASDIRECTD levothyroxine 100 mcg PO DAILY 01/02/21 04/15/21 polyethylene glycol 3350 [Miralax] 17 g PO DAILY 01/02/21 04/15/21 Trulicity 0.75 mg SUBCUT QWEEK 01/06/21 04/15/21 Trulicity 1.5 mg SUBCUT QWEEK 01/06/21 04/15/21 metformin 750 mg PO BID 01/06/21 04/15/21 triamcinolone acetonide 0 applic TOPICAL DIRECTED 01/06/21 04/15/21 BiPap #1 ea 02/14/21 04/14/21 acetaminophen 325 mg capsule 325 mg PO ONCE PRN 02/21/21 04/14/21 apixaban 5 mg tablet 5 mg PO BID 02/21/21 04/15/21 tiotropium 2.5 mcg-olodaterol 2.5 2 puff INHALATION DAILY #4 g 02/21/21 04/15/21 mcg/actuation mist for inhalation Trulicity 1.5 mg SUBCUT QWEEK 04/11/21 04/15/21 fluconazole [Diflucan] 200 mg PO QWEEK 04/11/21 04/14/21 tramadol 50 mg PO Q6H PRN 04/11/21 04/15/21 Lactobacillus acidophilus 1 tab PO TID 04/15/21 04/15/21 [Acidophilus] amoxicillin-pot clavulanate 1 tab PO BID 04/15/21 04/15/21 clindamycin HCl 450 mg PO TID 04/15/21 04/15/21 Previous Rx's Medication Instructions Recorded Lantus Solostar U-100 Insulin 20 unit SUBCUT HS #0 ml 12/16/20 BiPap #1 ea 02/14/21 tiotropium 2.5 mcg-olodaterol 2.5 2 puff INHALATION DAILY #4 g 02/21/21 mcg/actuation mist for inhalation Allergies Allergy/AdvReac Type Severity Reaction Status Date / Time bee venom protein (honey bee) Allergy Unknown Verified 04/15/21 11:34 Penicillins Allergy Unknown Verified 04/15/21 11:34 strawberry Allergy Unknown Verified 04/15/21 11:34 General KENDRICK: 3 Review of Systems Narrative: Patient states to me that she has been feeling fine. She has had a cough and recently had COVID-19. She has been urinating. Notes some mild c ongestion and mild shortness of breath with exertion. Denies to me chest pain. No vomiting or change to bowel habits. 8 systems reviewed and otherwise negative. PFSH All Active Problems (Updated 04/15/21 @ 14:02 by Bruno Barth MD) Cellulitis (Acute) Pneumonia (Acute) Hypercarbia (Acute) Anterior epistaxis (Acute) Epistaxis (Acute) COVID-19 (Acute) Pulmonary nodule (Acute) COPD (chronic obstructive pulmonary disease) (Chronic) Respiratory failure with hypoxia and hypercapnia (Acute) Morbid obesity (Acute) Vitamin D deficiency (Acute) MRSA (methicillin resistant staph aureus) culture positive (Acute) Hypoxia (Acute) Hypothyroidism (Chronic) Bilateral cellulitis of lower leg (Acute) Localized swelling of both lower legs (Acute) On amiodarone therapy (Acute) Palliative care patient (Acute) Cellulitis of left lower leg (Acute) Atrial fibrillation (Chronic) Plaque psoriasis (Acute) GERD (gastroesophageal reflux disease) (Chronic) Hypercholesterolemia (Acute) Type 2 diabetes mellitus (Chronic) Discharge planning issues (Acute) DVT prophylaxis (Acute) Obesity (Chronic) CHF (congestive heart failure) (Chronic) Family history unobtainable due to patient's condition (Acute) Medical History Acute and chronic respiratory failure with hypercapnia Acute exacerbation of chronic obstructive pulmonary disease Acute on chronic respiratory failure with hypoxia and hypercapnia Acute respiratory distress Acute respiratory distress Altered mental status Arthritis Cellulitis bilateral lower extremities Cellulitis CHF (congestive heart failure) Chronic atrial fibrillation, unspecified Chronic respiratory failure with hypoxia COPD (chronic obstructive pulmonary disease) Diabetes mellitus HCAP (healthcare-associated pneumonia) HCAP (healthcare-associated pneumonia) HCAP (healthcare-associated pneumonia) Methicillin susceptible Staphylococcus aureus infection as the cause of diseases classified elsewhere Mood disorder Morbid (severe) obesity with alveolar hypoventilation Muscle weakness (generalized) Obesity Pneumonia Sepsis Sepsis Streptococcal bacteremia Toxic metabolic encephalopathy Type 2 diabetes mellitus with hyperglycemia Surgical History H/O hand surgery right index finger removal of tendon sheath ganglion H/O: hysterectomy History of carpal tunnel surgery of right wrist History of excision of lesion abdominal cyst removed S/P appendectomy Family History Father Heart disease 2 [place], at 62 Mother Heart disease Social History Smoking/Tobacco Use Status: Former Tobacco Use Smoking risk assessment performed?: Yes Alcohol Intake: never Drug use: Never Substance use type: does not use Do you feel safe at home: Yes Do you feel safe in your relationship?: Yes Exam Narrative Exam Narrative: GEN: awake, alert, oriented 3. Pleasant, well groomed, interactive. HEAD: Normocephalic, atraumatic ENT: Mucous membranes moist, oropharynx unremarkable, External ear exam unremarkable EYES: PERRL, EOMI NECK: Full ROM, no MARLY, no menigismus CHEST/RESP: Nontender, few end expiratory wheeze present in bibasilar rales. CARDIOVASCULAR: R distant, regular, 2 out of 6 systolic ejection murmur. 2+ Rad pulse bilateral ABDOMEN: Soft, nontender, no mass. +Bowel sounds EXT: Full ROM, brawny edema of bilateral lower extremity with chronic venous stasis changes. There is erythema present but no significant warmth. Neuro: Grossly normal neurologic exam, conversant, interactive. Psych: Speech fluent, thoughts congruent, affect normal
--- NOTE | 2021-04-15 10:30 | RT.EKG_ITS ---
APPROVED REPORT Exam: Resting ECG Reason for Exam: sob Patient Location: E HR:84 bpm ECG Measurements Heart Rate 84 AXIS PA 244 P 100 QRSd 114 QRS -54 QT 433 T 65 QTc 513 Conclusion Sinus rhythm Prolonged PA interval. Incomplete RBBB and LAFB. Low voltage, extremity and precordial leads. Anterior q waves Prolonged QT interval...QTc >500mS
[2021-04-15 10:38] VITALS: BP 129/59; PULSE 85; RESP 22; TEMP 36.2; O2SAT 99
--- NOTE | 2021-04-15 11:00 | DI.RAD_ITS ---
Exam(s) XR PORTABLE CHEST AP EXAM: XR PORTABLE CHEST AP CLINICAL HISTORY: SOB, hx CHF. PUI TECHNIQUE: 2D digital imaging was performed of the chest. One image was obtained. An AP view was ob tained. COMPARISON: CR,XR XR PORTABLE CHEST AP from 12/12/2020 CR,XR XR CHEST 2V PA LATERAL from 01/02/2021 CR XR PORTABLE CHEST AP from 01/13/2021 FINDINGS: MEDIASTINUM: Normal. HEART: Normal. PULMONARY VASCULATURE: Normal. LUNGS: There is a question of an infiltrate in the right lung base. PLEURAL SPACE: No pleural effusion or pneumothorax. BONE:Within normal limits for the patient's age. OTHER FINDINGS:Normal. IMPRESSION: Question of a right basilar infiltrate. DATA REPOSITORY: RADIATION DOSE DELIVERED:
[2021-04-15 11:26] LABS: Lactate 1.9 mmol/L (0.6-1.4)
[2021-04-15 11:28] LABS: Abs Immature Grans 0.09 10^3/uL (0.0-0.06); Absolute Basophil Count 0.06 10^3/uL (0.0-0.2); Absolute Eosinophil Count 0.25 10^3/uL (0.0-0.7); Absolute Lymphocyte Count 1.66 10^3/uL (1.2-3.4); Absolute Monocyte Count 0.79 10^3/uL (0.1-0.8); Absolute Neutrophil Count 8.15 10^3/uL (1.2-6.7); Basophils % 0.5; Eosinophils % 2.3; HCT 37.2 % (36.0-46.0); Immature Grans % 0.8; Lymphocytes % 15.1; MCH 30.3 pg (27.0-33.0); MCHC 29.6 % (32.0-36.0); MCV 102.5 fL (80-95); MPV 8.6 fL (8.0-11.0); Monocytes % 7.2; Neutrophils % 74.1; Nucleated RBC 0 %; Platelet Count 287 10^3/uL (130-400); RBC 3.63 10^6/uL (3.93-5.22); RDW-SD 55.8 fL
[2021-04-15 11:37] LABS: Source Nasopharynx
[2021-04-15 11:46] LABS: BE > 15 mmol/L (-2-3); FIO2 30 %; FIO2L 2 L; HCO3 46 mmol/L (22-26); Site Left Radial; pH 7.39 (7.35-7.45); pO2 115 mmHg (80-105); sO2 98 % (95-98); tCO2 42 mmol/L (23-27)
[2021-04-15 11:47] LABS: pCO2 76 mmHg (35-45)
[2021-04-15 11:48] LABS: ALT 38 U/L (14-59); AST 62 U/L (15-37); Albumin 2.7 g/dL (3.4-5.0); Alkaline Phosphatase 156 U/L (46-116); Anion Gap 0.4 mmol/L (3-11); BUN 12 mg/dL (7-18); Bilirubin, Total 0.4 mg/dL (0.2-1.0); CO2 43.6 mmol/L (21.0-32.0); Calcium 9.2 mg/dL (8.5-10.1); Chloride 93 mmol/L (98-107); Glucose 162 mg/dL (74-106); Magnesium 1.8 mg/dL (1.8-2.4); NT-proBNP 126 pg/mL (<300); Potassium 3.3 mmol/L (3.5-5.1); Sodium 137 mmol/L (136-145); Total Protein 7.5 g/dL (6.4-8.2); Troponin I < 50 ng/L (<or=60)
[2021-04-15 12:18] LABS: COVID-19 PCR Negative (Negative); Influenza A PCR Negative (Negative); Influenza B PCR Negative (Negative); RSV PCR Negative (Negative)
--- NOTE | 2021-04-15 12:30 | DI.US_ITS ---
Exam(s) US LOWER EXTREMITY VENOUS LT EXAM: US LOWER EXTREMITY VENOUS LT CLINICAL HISTORY: L > R edema TECHNIQUE: Left lower extremity venous ultrasound performed using grayscale, color-flow, and spectra l Doppler analysis. COMPARISON: No exams were available for comparison FINDINGS: Examination is limited due to patient body habitus. The left common femoral, femoral and popliteal v eins demonstrate normal compressibility, augmentation, and color Doppler. The posterior tibial veins are not well visualized secondary to patient body habitus. The saphenofemoral junction is unremarkab le. There is no evidence of a Morrissey cyst. The soft tissues are unremarkable. IMPRESSION: No DVT. DATA REPOSITORY:
--- NOTE | 2021-04-15 12:30 | DI.US_ITS ---
Exam(s) US LOWER EXTREMITY VENOUS RT EXAM: US LOWER EXTREMITY VENOUS RT CLINICAL HISTORY: L > R edema TECHNIQUE: Right lower extremity venous ultrasound performed using grayscale, color-flow, and spectr al Doppler analysis. COMPARISON: No exams were available for comparison FINDINGS: Examination limited due to patient body habitus. The right common femoral, femoral and popliteal vei ns demonstrate normal compressibility, augmentation, and color Doppler. The posterior tibial veins ar e patent. The saphenofemoral junction is unremarkable. There is no evidence of a Morrissey cyst. The s oft tissues are unremarkable. IMPRESSION: 1. No DVT. DATA REPOSITORY:
[2021-04-15] MEDS: methylPREDNISolone SUCC 125 MG VIAL IVP (13:15)
[2021-04-15 13:28] LABS: Bilirubin Negative (Negative); Blood Negative (Negative); Clarity Clear (Clear); Glucose Negative (Negative); Ketones Negative (Negative); Leukocyte Esterase Negative (Negative); Nitrite Negative (Negative); Specific Gravity 1.015 (1.005-1.025); Urobilinogen 0.2 EU/dL (Up TO 0.2); pH 5.5 (5-8)
--- NOTE | 2021-04-15 13:30 | RT.EKG_ITS ---
APPROVED REPORT Exam: Resting ECG Reason for Exam: SOB Patient Location: E HR:73 bpm ECG Measurements Heart Rate 73 AXIS DE [id number] P [id number] QRSd 121 QRS -60 QT 461 T 45 QTc 508 Conclusion NSR IVCD, consider RBBB. Anterior q waves
[2021-04-15 13:41] VITALS: RESP 7
[2021-04-15] MEDS: Albuterol/Ipratropium 3 ML UPD VIAL UPD (13:41)
[2021-04-15 13:54] LABS: Troponin I < 50 ng/L (<or=60)
[2021-04-15] MEDS: cefTRIAXone 1 GM/50 ML BAG IVPB (14:31)
--- NOTE | 2021-04-15 14:35 | HPE_ITS ---
Date of service: 04/15/21 Time of Service: 14:36 Assessment and Plan Assessment and plan (1) Respiratory failure with hypoxia and hypercapnia: Status: Acute Assessment and plan: multifactoral with copd exacerbation and pneumonia (2) Pneumonia: Status: Acute Assessment and plan: given ceftriaxone day 1 continue respiratory medications use trilogy at home settings (3) COPD (chronic obstructive pulmonary disease): Status: Chronic Assessment and plan: will be given prednisone burst continue inhalers prn albuterol (4) Cellulitis: Status: Acute Assessment and plan: with history of MRSA. 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 no rebleeding since. will hold apixaban tonight Qualifiers: Atrial fibrillation type: unspecified Qualified Code(s): I48.91 - Unspecified atrial fibrillation (7) Epistaxis: Status: Acute Assessment and plan: seen in ED and required packing 2-3 days a few days ago. no re-bleeding since packing removed will hold apixaban until confirmed shes been restarted on it. humidify oxygen (8) DVT prophylaxis: Status: Acute Assessment and plan: fully anticoagulated on apixaban (9) Discharge planning issues: Status: Acute Assessment and plan: discharge to the [facility] when medically stable discussed with DR Roche (10) COVID-19: Status: Acute Assessment and plan: fully vaccinated for covid tested negative by pcr in ED today her facility has active outbreak of covid will continue covid precautions here on admission. retest in 3 days per policy. History of Present Illness History of Present Illness Chief Complaint: hypoxia Narrative: presents to ED via ems after being found hypoxic. she is currently being treatment with oral antibiotics for cellulitis. work up in the ED shows pneumonia on xray with increased oxygen requirements. she will be admitted to med/surg under covid precautions as outbreak at her facility. she has tested negative here by pcr. she was placed on vanco and ceftriaxone to cover possible mrsa cellulitis and her pneumonia. Review of Systems All systems reviewed & are unremarkable except as noted in HPI and below Integumentary/Breasts Skin/Breast: Reports rash PFSH All Active Problems (Updated 04/15/21 @ 14:02 by Bruno Barth MD) Cellulitis (Acute) Pneumonia (Acute) Hypercarbia (Acute) Anterior epistaxis (Acute) Epistaxis (Acute) COVID-19 (Acute) Pulmonary nodule (Acute) COPD (chronic obstructive pulmonary disease) (Chronic) Respiratory failure with hypoxia and hypercapnia (Acute) Morbid obesity (Acute) Vitamin D deficiency (Acute) MRSA (methicillin resistant staph aureus) culture positive (Acute) Hypoxia (Acute) Hypothyroidism (Chronic) Bilateral cellulitis of lower leg (Acute) Localized swelling of both lower legs (Acute) On amiodarone therapy (Acute) Palliative care patient (Acute) Cellulitis of left lower leg (Acute) Atrial fibrillation (Chronic) Plaque psoriasis (Acute) GERD (gastroesophageal reflux disease) (Chronic) Hypercholesterolemia (Acute) Type 2 diabetes mellitus (Chronic) Discharge planning issues (Acute) DVT prophylaxis (Acute) Obesity (Chronic) CHF (congestive heart failure) (Chronic) Family history unobtainable due to patient's condition (Acute) Medical History Acute and chronic respiratory failure with hypercapnia Acute exacerbation of chronic obstructive pulmonary disease Acute on chronic respiratory failure with hypoxia and hypercapnia Acute respiratory distress Acute respiratory distress Altered mental status Arthritis Cellulitis bilateral lower extremities Cellulitis CHF (congestive heart failure) Chronic atrial fibrillation, unspecified Chronic respiratory failure with hypoxia COPD (chronic obstructive pulmonary disease) Diabetes mellitus HCAP (healthcare-associated pneumonia) HCAP (healthcare-associated pneumonia) HCAP (healthcare-associated pneumonia) Methicillin susceptible Staphylococcus aureus infection as the cause of diseases classified elsewhere Mood disorder Morbid (severe) obesity with alveolar hypoventilation Muscle weakness (generalized) Obesity Pneumonia Sepsis Sepsis Streptococcal bacteremia Toxic metabolic encephalopathy Type 2 diabetes mellitus with hyperglycemia Surgical History H/O hand surgery right index finger removal of tendon sheath ganglion H/O: hysterectomy History of carpal tunnel surgery of right wrist History of excision of lesion abdominal cyst removed S/P appendectomy Family History Father Heart disease 2 [place], at 62 Mother Heart disease Social History Smoking/Tobacco Use Status: Former Tobacco Use Smoking risk assessment performed?: Yes Alcohol Intake: never Drug use: Never Substance use type: does not use Do you feel safe at home: Yes Do you feel safe in your relationship?: Yes Meds Allergies and Home Medications Allergies Allergy/AdvReac Type Severity Reaction Status Date / Time bee venom protein (honey bee) Allergy Unknown Verified 04/15/21 11:34 Penicillins Allergy Unknown Verified 04/15/21 11:34 strawberry Allergy Unknown Verified 04/15/21 11:34 Home Medications Medication Instructions Recorded Confirmed Type acetaminophen [Tylenol] 650 mg PO Q4H PRN 01/14/20 04/15/21 History albuterol sulfate 2 inh INHALATION .Q4H,PRN PRN 01/14/20 04/15/21 History diltiazem HCl [DILT-XR] 240 mg PO QAM 01/14/20 04/15/21 History epinephrine 0.3 mg IM PRN PRN 01/14/20 04/15/21 History folic acid 1 mg PO QAM 01/14/20 04/15/21 History T Gel Shampoo 1 applic TOPICAL .Sunday03/07/20 04/15/21 History ferrous sulfate 325 mg PO BID 03/07/20 04/15/21 History amiodarone 200 mg tablet 200 mg PO DAILY tab 12/02/20 04/15/21 History furosemide 20 mg tablet 80 mg PO BID tab 12/02/20 04/15/21 History pantoprazole 20 mg tablet,delayed 20 mg PO BID tab 12/02/20 04/15/21 History release potassium chloride 10 meq PO DAILY AM 12/12/20 04/15/21 History tolterodine 4 mg PO DAILY AM 12/12/20 04/15/21 History [place] Saline Gel 1 spray INTRANASAL DAILY 12/14/20 04/15/21 History ascorbic acid (vitamin C) [Vitamin 500 mg PO BID 12/14/20 04/15/21 History C] gabapentin 300 mg PO HS 12/14/20 04/15/21 History Lantus Solostar U-100 Insulin 20 unit SUBCUT HS #0 ml 12/16/20 04/15/21 Rx insulin aspart U-100 1 sliding scale dose SUBCUT 01/02/21 04/15/21 History USEASDIRECTD levothyroxine 100 mcg PO HS 01/02/21 04/16/21 History polyethylene glycol 3350 [Miralax] 17 g PO DAILY 01/02/21 04/15/21 History Trulicity 1.5 mg SUBCUT QWEEK 01/06/21 04/15/21 History metformin 750 mg PO BID 01/06/21 04/15/21 History triamcinolone acetonide 0 applic TOPICAL DIRECTED 01/06/21 04/15/21 History BiPap #1 ea 02/14/21 04/14/21 Rx apixaban 5 mg tablet 5 mg PO BID 02/21/21 04/15/21 History tiotropium 2.5 mcg-olodaterol 2.5 2 puff INHALATION DAILY #4 g 02/21/21 04/15/21 Rx mcg/actuation mist for inhalation fluconazole [Diflucan] 200 mg PO QWEEK 04/11/21 04/16/21 History Lactobacillus acidophilus 1 tab PO TID 04/15/21 04/15/21 History [Acidophilus] aspirin 81 mg PO DAILY 04/16/21 04/16/21 History buspirone 5 mg PO TID 04/16/21 04/16/21 History citalopram 20 mg PO DAILY 04/16/21 04/16/21 History ergocalciferol (vitamin D2) 1,250 mcg PO QWEEK 04/16/21 04/16/21 History vitamin B complex [B Complex 100] 1 tab PO DAILY 04/16/21 04/16/21 History Exam Const General: cooperative, comfortable and no acute distress Nutritional Appearance: obese Orientation: alert, awake and oriented x3 HENFL Head: normal to inspection, normocephalic and atraumatic Chest Chest: normal inspection of the chest Resp Effort & Inspection: normal respiratory effort Auscultation: diminished lung sounds Cardio Rate: regular rate Rhythm: regular rhythm GI Inspection: normal to inspection Palpation: soft Auscultation: normal bowel sounds Skin Lesions: lesion noted (lower extremities) Rashes: rashes noted (bilateral lower extremities) Neuro General: patient alert, patient awake and patient oriented x3 Extrem General: edema Laterality: bilateral Results Labs Result diagrams: 04/16/21 06:35 04/16/21 06:35 Labs: Laboratory Results - last 24 hr 04/15/21 04/15/21 04/15/21 11:00 11:10 11:10 WBC RBC Hgb Hct MCV MCH MCHC RDW Plt Count MPV Immature Gran % Neutrophils % Lymphocytes % Monocytes % Eosinophils % Basophils % Nucleated RBC % Absolute Neutrophils Absolute Lymphocytes Absolute Monocytes Absolute Eosinophils Absolute Basophils ABG Sample Site ABG pH ABG pCO2 ABG pO2 ABG HCO3 ABG Total CO2 ABG O2 Saturation ABG Base Excess VBG Lactate 1.9 H Oxygen Liter Flow FiO2 Sodium 137 Potassium 3.3 L Chloride 93 L Carbon Dioxide 43.6 H Anion Gap 0.4 L BUN 12 Creatinine 1.0 Estimated GFR/1.73 m2 54.50 Glucose 162 H Calcium 9.2 Magnesium 1.8 Total Bilirubin 0.4 AST 62 H ALT 38 Alkaline Phosphatase 156 H Troponin I < 50 NT-Pro-B Natriuret Pep 126 Total Protein 7.5 Albumin 2.7 L Urine Color Urine Clarity Urine pH Ur Specific [place] Urine Protein Urine Ketones Urine Blood Urine Nitrite Urine Bilirubin Urine Urobilinogen Ur Leukocyte Esterase Urine Glucose COVID-19 Source Nasopharynx SARS-CoV-2 (PCR) Negative Influenza Type A (PCR) Negative Influenza Type B (PCR) Negative RSV (PCR) Negative 04/15/21 04/15/21 04/15/21 11:10 11:35 13:15 WBC 11.00 H D RBC 3.63 L Hgb 11.0 L Hct 37.2 MCV 102.5 H MCH 30.3 MCHC 29.6 L RDW 15.0 H Plt Count 287 MPV 8.6 Immature Gran % 0.8 Neutrophils % 74.1 Lymphocytes % 15.1 Monocytes % 7.2 Eosinophils % 2.3 Basophils % 0.5 Nucleated RBC % 0 Absolute Neutrophils 8.15 H Absolute Lymphocytes 1.66 Absolute Monocytes 0.79 Absolute Eosinophils 0.25 Absolute Basophils 0.06 ABG Sample Site Left Radial ABG pH 7.39 ABG pCO2 76 H* ABG pO2 115 H ABG HCO3 46 H ABG Total CO2 42 H ABG O2 Saturation 98 ABG Base Excess > 15 H VBG Lactate Oxygen Liter Flow 2 FiO2 30 Sodium Potassium Chloride Carbon Dioxide Anion Gap BUN Creatinine Estimated GFR/1.73 m2 Glucose Calcium Magnesium Total Bilirubin AST ALT Alkaline Phosphatase Troponin I < 50 NT-Pro-B Natriuret Pep Total Protein Albumin Urine Color Urine Clarity Urine pH Ur Specific [place] Urine Protein Urine Ketones Urine Blood Urine Nitrite Urine Bilirubin Urine Urobilinogen Ur Leukocyte Esterase Urine Glucose COVID-19 Source SARS-CoV-2 (PCR) Influenza Type A (PCR) Influenza Type B (PCR) RSV (PCR) 04/15/21 13:15 WBC RBC Hgb Hct MCV MCH MCHC RDW Plt Count MPV Immature Gran % Neutrophils % Lymphocytes % Monocytes % Eosinophils % Basophils % Nucleated RBC % Absolute Neutrophils Absolute Lymphocytes Absolute Monocytes Absolute Eosinophils Absolute Basophils ABG Sample Site ABG pH ABG pCO2 ABG pO2 ABG HCO3 ABG Total CO2 ABG O2 Saturation ABG Base Excess VBG Lactate Oxygen Liter Flow FiO2 Sodium Potassium Chloride Carbon Dioxide Anion Gap BUN Creatinine Estimated GFR/1.73 m2 Glucose Calcium Magnesium Total Bilirubin AST ALT Alkaline Phosphatase Troponin I NT-Pro-B Natriuret Pep Total Protein Albumin Urine Color Yellow Urine Clarity Clear Urine pH 5.5 Ur Specific [place] 1.015 Urine Protein Negative Urine Ketones Negative Urine Blood Negative Urine Nitrite Negative Urine Bilirubin Negative Urine Urobilinogen 0.2 Ur Leukocyte Esterase Negative Urine Glucose Negative COVID-19 Source SARS-CoV-2 (PCR) Influenza Type A (PCR) Influenza Type B (PCR) RSV (PCR) Last Vital Signs Temp 36.2 C L 04/15/21 10:38 Pulse 85 04/15/21 10:38 Resp 22 04/15/21 10:38 BP 129/59 L 04/15/21 10:38 Pulse Ox 99 04/15/21 10:38
--- NOTE | 2021-04-15 15:22 | NUR.NOTE ---
assist pt to commode No Complications
[2021-04-15] MEDS: VANCOMYCIN 1,500 MG in Normal Saline 250 ML 166.6666 MG IVPB (16:17)
[2021-04-15 16:52] VITALS: BP 129/68; PULSE 78; RESP 20; TEMP 37; O2SAT 93
[2021-04-15 18:10] VITALS: RESP 14
--- NOTE | 2021-04-15 18:18 | RESPIRATORY ---
PT SET UP ON [facility]- 4L O2 BLEED IN.
[2021-04-15] MEDS: Furosemide 40 MG TAB 80 MG PO (21:11)
[2021-04-15] MEDS: Ferrous Sulfate 325 MG TAB PO (21:11)
[2021-04-15] MEDS: Pantoprazole 20 MG TABCR PO (21:11)
[2021-04-15] MEDS: Gabapentin 300 MG CAP PO (21:11)
[2021-04-15] MEDS: metFORMIN 500 MG TAB 750 MG PO (21:12)
[2021-04-15] MEDS: Ascorbic Acid 500 MG TAB PO (21:12)
[2021-04-15] MEDS: Insulin Glargine 300 UNITS/3 ML PEN 20 UNITS SC (21:12)
[2021-04-15 21:27] VITALS: BP 131/53; PULSE 82; RESP 20; TEMP 37.3; O2SAT 93
[2021-04-15] MEDS: traMADol 50 MG TAB PO (22:25)
[2021-04-16] MEDS: VANCOMYCIN/WATER (PEG) 1.25 GM/250 ML BAG IV ×2 (06:18→21:46)
[2021-04-16 07:09] LABS: Abs Immature Grans 0.14 10^3/uL (0.0-0.06); Absolute Basophil Count 0.01 10^3/uL (0.0-0.2); Absolute Lymphocyte Count 1.26 10^3/uL (1.2-3.4); Absolute Monocyte Count 0.25 10^3/uL (0.1-0.8); Absolute Neutrophil Count 12.06 10^3/uL (1.2-6.7); Basophils % 0.1; HCT 37.6 % (36.0-46.0); HGB 11.4 g/dL (11.2-15.7); Lymphocytes % 9.2; MCHC 30.3 % (32.0-36.0); MCV 98.9 fL (80-95); Monocytes % 1.8; Neutrophils % 87.9; Nucleated RBC 0 %; Platelet Count 341 10^3/uL (130-400); RDW 14.4 % (11.7-14.6); RDW-SD 52.4 fL; WBC 13.72 10^3/uL (4.4-10.8)
[2021-04-16 07:17] LABS: Anion Gap 4.8 mmol/L (3-11); BUN 14 mg/dL (7-18); CO2 41.2 mmol/L (21.0-32.0); CREATININE 0.9 mg/dL (0.55-1.02); Calcium 9.3 mg/dL (8.5-10.1); Chloride 92 mmol/L (98-107); Glucose 210 mg/dL (74-106); Potassium 3.9 mmol/L (3.5-5.1); Sodium 138 mmol/L (136-145)
[2021-04-16] MEDS: Ascorbic Acid 500 MG TAB PO ×2 (08:34→21:47)
[2021-04-16] MEDS: Amiodarone 200 MG TAB PO (08:34)
[2021-04-16] MEDS: Aspirin E.C. 81 MG TABEC PO (08:34)
[2021-04-16] MEDS: dilTIAZem CD 120 MG CAPCR 240 MG PO (08:35)
[2021-04-16] MEDS: Ferrous Sulfate 325 MG TAB PO ×2 (08:35→21:48)
[2021-04-16] MEDS: Citalopram 20 MG TAB PO (08:35)
[2021-04-16] MEDS: Folic Acid 1 MG TAB PO (08:35)
[2021-04-16] MEDS: Cyanocobalamin 500 MCG TAB 1000 MCG PO (08:35)
[2021-04-16] MEDS: Insulin Aspart 300 UNITS/3 ML PEN SC ×3 (08:36→16:42)
[2021-04-16] MEDS: Furosemide 40 MG TAB 80 MG PO ×2 (08:36→21:48)
[2021-04-16] MEDS: metFORMIN 500 MG TAB 750 MG PO ×2 (08:37→21:47)
[2021-04-16] MEDS: Levothyroxine 100 MCG TAB PO (08:37)
[2021-04-16] MEDS: Tolterodine 2 MG CAPCR 4 MG PO (08:37)
[2021-04-16] MEDS: Potassium Chloride 10 MEQ TABCR PO (08:37)
[2021-04-16] MEDS: Pantoprazole 20 MG TABCR PO ×2 (08:37→21:48)
[2021-04-16] MEDS: predniSONE 20 MG TAB 40 MG PO (08:37)
[2021-04-16 08:48] VITALS: BP 122/62; PULSE 81; RESP 16; TEMP 36.7; O2SAT 92
[2021-04-16 09:31] VITALS: RESP 14; RESP 15; O2SAT 92
[2021-04-16] MEDS: Tiotropium/Olodaterol 10 PUFF INHALER 2 PUFF IH (09:35)
[2021-04-16] MEDS: Fluconazole 100 MG TAB 200 MG PO (10:04)
[2021-04-16] MEDS: Nystatin POWDER 60 GM JAR TP ×2 (10:04→21:45)
[2021-04-16] MEDS: Polyethylene Glycol 3350 17 GM PACKET PO (10:05)
--- NOTE | 2021-04-16 10:59 | PDOC.CMIN ---
- If Service Date Differs Date of service: 04/16/21 Time of Service: 11:00 Care Management Initial Assess REASON FOR HOSPITALIZATION:: Pneumonia. PAST MEDICAL HISTORY/PAST SURGICAL HISTORY:: All Active Problems: Cellulitis (Acute), Pneumonia (Acute), Hypercarbia (Acute), Anterior epistaxis (Acute), Epistaxis (Acute), COVID-19 (Acute),. Pulmonary nodule (Acute), COPD (chronic obstructive pulmonary disease) (Chronic), Respiratory failure with hypoxia and hypercapnia (Acute),. Morbid obesity (Acute), Vitamin D deficiency (Acute), MRSA (methicillin resistant staph aureus) culture positive (Acute), Hypoxia (Acute),. Hypothyroidism (Chronic), Bilateral cellulitis of lower leg (Acute),. Localized swelling of both lower legs (Acute), On amiodarone therapy (Acute), Palliative care patient (Acute), Cellulitis of left lower leg (Acute),. Atrial fibrillation (Chronic), Plaque psoriasis (Acute), GERD (gastroesophageal reflux disease) (Chronic), Hypercholesterolemia (Acute), Type 2 diabetes mellitus (Chronic), Discharge planning issues (Acute), DVT prophylaxis (Acute), Obesity (Chronic), CHF (congestive heart failure) (Chronic), and Family history unobtainable due to patient's condition (Acute). Medical History: Acute and chronic respiratory failure with hypercapnia,. Acute exacerbation of chronic obstructive pulmonary disease, Acute on chronic respiratory failure with hypoxia and hypercapnia, Acute respiratory distress, Acute respiratory distress, Altered mental status, Arthritis, Cellulitis - bilateral lower extremities, Cellulitis, CHF (congestive heart failure), Chronic atrial fibrillation, unspecified, Chronic respiratory failure with hypoxia, COPD (chronic obstructive pulmonary disease), Diabetes mellitus, HCAP (healthcare-associated pneumonia), HCAP (healthcare-associated pneumonia), HCAP (healthcare-associated pneumonia),. Methicillin susceptible Staphylococcus aureus infection as the cause of diseases classified elsewhere, Mood disorder, Morbid (severe) obesity with alveolar hypoventilation, Muscle weakness (generalized), Obesity,. Pneumonia, Sepsis, Sepsis, Streptococcal bacteremia, Toxic metabolic encephalopathy, and Type 2 diabetes mellitus with hyperglycemia. Surgical History: H/O hand surgery - right index finger removal of tendon sheath ganglion, H/O: hysterectomy, History of carpal tunnel surgery of right wrist, History of excision of lesion - abdominal cyst removed, and. S/P appendectomy. PREVIOUS FUNCTIONAL STATUS/SOCIAL/FAMILY SUPPORTS:: Marlen is a resident of the [facility]. She previously lived in a level three facility in [place], [place], but was relocated to the [facility] when the [facility] closed. She has a daughter, Karlie, who lives locally and is supportive. Marlen needs assistance with her ADLs which is provided by staff at the [facility]. CURRENT FUNCTIONAL STATUS:: Marlen is currently in isolation, so CM is unable to meet with her. Per report, Marlen is currently on 4L of 02 via nasal cannula. At baseline, Marlen only has prn O2 needs during daytime hours. ADVANCE DIRECTIVES:: On file; daughter Karlie Salazar is appointed as Health Care Agent. Has patient been provided with info about the portal/API?: Yes Did the patient sign up for the portal?: No (Previously declined) CODE STATUS:: DNR/DNI INSURANCE COVERAGE / FINANCIAL ISSUES:: Medicare and Medicaid. CURRENT HOME/COMMUNITY SERVICES/EQUIPMENT:: Marlen has a FWW and a wheelchair. She currently lives at the [facility] where she receives assistance with her care. She is a Palliative Care patient. PRIMARY CARE PHYSICIAN:: Evi Cloud. POTENTIAL DISCHARGE NEEDS:: Follow up appointment with PCP and coordinated return to the [facility]. PATIENT/FAMILY EDUCATION NEEDS:: Review discharge instructions, limitations and plan of care; discuss Ask Me Three and self management needs. ANTICIPATED BARRIERS TO DISCHARGE:: None identified at this time. TRANSPORTATION:: Via [facility] wheelchair van. PLAN:: Marlen will return to the [facility] when medically cleared by provider. She will follow up with her PCP and discharge plan of care as directed. She will be transported to the [facility] by [facility] wheelchair van coordinated by CM when ready. CM will continue to follow.
[2021-04-16] MEDS: busPIRone 5 MG TAB PO ×2 (13:38→21:48)
[2021-04-16] MEDS: cefTRIAXone 1 GM/50 ML BAG IVPB (13:39)
--- NOTE | 2021-04-16 14:37 | PGE_ITS ---
Date of Service Date of service: 04/16/21 Time of Service: 14:37 Assessment and Plan Assessment and plan (1) Respiratory failure with hypoxia and hypercapnia: Status: Acute Assessment and plan: multifactoral with copd exacerbation and pneumonia (2) Pneumonia: Status: Acute Assessment and plan: given ceftriaxone day 2 continue respiratory medications use trilogy at home settings (3) COPD (chronic obstructive pulmonary disease): Status: Chronic Assessment and plan: will be given prednisone burst continue inhalers prn albuterol (4) Cellulitis: Status: Acute Assessment and plan: with history of MRSA. started on vanco and ceftriaxone day 2 elevate legs (5) Type 2 diabetes mellitus: Status: Chronic Assessment and plan: A1C 7.8 in Jan 2021 diabetic diet and home meds sliding scale as needed Qualifiers: Diabetes mellitus residential insulin use: without residential use Diabetes mellitus complication status: without complication Qualified Code(s): E11.9 - Type 2 diabetes mellitus without complications (6) Atrial fibrillation: Status: Chronic Assessment and plan: rate controlled continue amiodarone and diltiazem recent history of epitaxis requiring rhinorocket. no rebleeding since. will hold apixaban tonight Qualifiers: Atrial fibrillation type: unspecified Qualified Code(s): I48.91 - Unspecified atrial fibrillation (7) Epistaxis: Status: Acute Assessment and plan: seen in ED and required packing 2-3 days a few days ago. no re-bleeding since packing removed will hold apixaban until confirmed shes been restarted on it. humidify oxygen (8) DVT prophylaxis: Status: Acute Assessment and plan: fully anticoagulated on apixaban (9) Discharge planning issues: Status: Acute Assessment and plan: discharge to the [facility] when medically stable discussed with DR Davidson Subjective Subjective Patient reports: no new complaints, feels better, tolerating liquids well, tolerating a regular diet, voiding w/o difficulty, shortness of breath and afebrile Exam Const General: cooperative, comfortable and no acute distress Nutritional Appearance: obese Orientation: alert, awake and oriented x3 HENMT Head: normal to inspection, normocephalic and atraumatic Chest Chest: normal inspection of the chest Resp Effort & Inspection: normal respiratory effort Auscultation: diminished lung sounds Cardio Rate: regular rate Rhythm: regular rhythm GI Inspection: normal to inspection Palpation: soft Auscultation: normal bowel sounds Skin Lesions: lesion noted (lower extremities) Rashes: rashes noted (bilateral lower extremities) Neuro General: patient alert, patient awake and patient oriented x3 Extrem General: edema Laterality: bilateral Objective Last Vital Signs Temp 36.7 C 04/16/21 08:48 Pulse 81 04/16/21 08:48 Resp 14 04/16/21 09:31 BP 122/62 04/16/21 08:48 Pulse Ox 92 04/16/21 09:31 Laboratory Results - last 24 hr 04/16/21 04/16/21 06:35 06:35 WBC 13.72 H RBC 3.80 L Hgb 11.4 Hct 37.6 MCV 98.9 H D MCH 30.0 MCHC 30.3 L RDW 14.4 Plt Count 341 MPV 9.0 Immature Gran % 1.0 Neutrophils % 87.9 Lymphocytes % 9.2 Monocytes % 1.8 Eosinophils % 0.0 Basophils % 0.1 Nucleated RBC % 0 Absolute Neutrophils 12.06 H Absolute Lymphocytes 1.26 Absolute Monocytes 0.25 Absolute Eosinophils 0.00 Absolute Basophils 0.01 Sodium 138 Potassium 3.9 Chloride 92 L Carbon Dioxide 41.2 H Anion Gap 4.8 BUN 14 Creatinine 0.9 Estimated GFR/1.73 m2 >= 60.00 Glucose 210 H Calcium 9.3
[2021-04-16 14:41] VITALS: RESP 14; RESP 15
[2021-04-16 16:41] VITALS: BP 103/57; PULSE 85; RESP 14; TEMP 37.5; O2SAT 91
[2021-04-16] MEDS: Sodium Chloride-Nasal SPRAY-ADULT 44 ML BTL NS (21:45)
[2021-04-16] MEDS: Gabapentin 300 MG CAP PO (21:46)
[2021-04-16] MEDS: Normal Saline Flush 10 ML SYR IVP (21:46)
[2021-04-16] MEDS: Insulin Glargine 300 UNITS/3 ML PEN 20 UNITS SC (21:49)
[2021-04-16 22:06] VITALS: BP 103/57; PULSE 79; RESP 16; TEMP 37.3; O2SAT 93
[2021-04-16 22:21] VITALS: PULSE 79; O2SAT 93
[2021-04-17] MEDS: Acetaminophen 325 MG TAB 650 MG PO (03:13)
[2021-04-17 07:11] LABS: Abs Immature Grans 0.12 10^3/uL (0.0-0.06); Absolute Eosinophil Count 0.02 10^3/uL (0.0-0.7); Absolute Neutrophil Count 12.61 10^3/uL (1.2-6.7); Basophils % 0.2; Eosinophils % 0.1; HCT 38.2 % (36.0-46.0); HGB 11.5 g/dL (11.2-15.7); Immature Grans % 0.7; Lymphocytes % 15.4; MCH 30.1 pg (27.0-33.0); MCHC 30.1 % (32.0-36.0); MPV 9.1 fL (8.0-11.0); Monocytes % 5.2; Neutrophils % 78.4; Nucleated RBC 0 %; Platelet Count 389 10^3/uL (130-400); RBC 3.82 10^6/uL (3.93-5.22); RDW 14.7 % (11.7-14.6); RDW-SD 53.9 fL; WBC 16.09 10^3/uL (4.4-10.8)
[2021-04-17 07:13] LABS: Absolute Basophil Count 0.03 10^3/uL (0.0-0.2); Absolute Lymphocyte Count 2.48 10^3/uL (1.2-3.4); Absolute Monocyte Count 0.84 10^3/uL (0.1-0.8)
[2021-04-17 07:20] LABS: Anion Gap 2.7 mmol/L (3-11); BUN 22 mg/dL (7-18); CO2 42.3 mmol/L (21.0-32.0); CREATININE 0.9 mg/dL (0.55-1.02); Calcium 9.1 mg/dL (8.5-10.1); Chloride 95 mmol/L (98-107); Glucose 156 mg/dL (74-106); Potassium 3.2 mmol/L (3.5-5.1); Sodium 140 mmol/L (136-145)
[2021-04-17] MEDS: Tiotropium/Olodaterol 10 PUFF INHALER 2 PUFF IH (08:04)
[2021-04-17 08:05] VITALS: RESP 14; RESP 15; O2SAT 94
[2021-04-17 08:53] VITALS: BP 139/61; PULSE 80; RESP 12; TEMP 37.2; O2SAT 91
[2021-04-17] MEDS: Polyethylene Glycol 3350 17 GM PACKET PO (08:54)
[2021-04-17] MEDS: predniSONE 20 MG TAB 40 MG PO (08:54)
[2021-04-17] MEDS: Amiodarone 200 MG TAB PO (08:55)
[2021-04-17] MEDS: metFORMIN 500 MG TAB 750 MG PO ×2 (08:55→21:59)
[2021-04-17] MEDS: dilTIAZem CD 120 MG CAPCR 240 MG PO (08:55)
[2021-04-17] MEDS: Furosemide 40 MG TAB 80 MG PO ×2 (08:56→22:00)
[2021-04-17] MEDS: Folic Acid 1 MG TAB PO (08:56)
[2021-04-17] MEDS: Ferrous Sulfate 325 MG TAB PO ×2 (08:57→22:00)
[2021-04-17] MEDS: Potassium Chloride 10 MEQ TABCR PO (08:57)
[2021-04-17] MEDS: busPIRone 5 MG TAB PO ×3 (08:57→22:00)
[2021-04-17] MEDS: Tolterodine 2 MG CAPCR 4 MG PO (08:57)
[2021-04-17] MEDS: Aspirin E.C. 81 MG TABEC PO (08:57)
[2021-04-17] MEDS: Citalopram 20 MG TAB PO (08:57)
[2021-04-17] MEDS: Nystatin POWDER 60 GM JAR TP ×2 (08:58→22:04)
[2021-04-17] MEDS: Pantoprazole 20 MG TABCR PO ×2 (08:58→22:00)
[2021-04-17] MEDS: Cyanocobalamin 500 MCG TAB 1000 MCG PO (08:58)
[2021-04-17] MEDS: Ascorbic Acid 500 MG TAB PO ×2 (08:58→21:59)
[2021-04-17] MEDS: Sodium Chloride-Nasal SPRAY-ADULT 44 ML BTL NS ×2 (09:00→22:01)
[2021-04-17 09:28] LABS: Source Nasal/Nares
[2021-04-17] MEDS: DOXYCYCLINE 100 MG in Normal Saline 100 ML IVPB ×2 (10:12→22:02)
[2021-04-17] MEDS: Potassium Chloride 20 MEQ TABCR 40 MEQ PO ×2 (10:12→17:09)
[2021-04-17 11:01] LABS: COVID-19 PCR Negative (Negative)
[2021-04-17] MEDS: Insulin Aspart 300 UNITS/3 ML PEN SC ×2 (12:10→17:08)
[2021-04-17] MEDS: cefTRIAXone 1 GM/50 ML BAG IVPB (14:23)
--- NOTE | 2021-04-17 14:48 | PGE_ITS ---
Date of Service Date of service: 04/17/21 Time of Service: 13:15 Assessment and Plan Assessment and plan (1) Respiratory failure with hypoxia and hypercapnia: Start date: 04/17/21 Start time: 13:15 Status: Acute Assessment and plan: multifactoral with copd exacerbation and pneumonia Improved. LSC. Mucinex, Steroids Ceftriaxone and doxy BC negative Nasal swab positive, dcd IV vanco and placed on bactroban for nares Second COVID negative Qualifiers: Chronicity: acute on chronic Qualified Code(s): J96.21 - Acute and chronic respiratory failure with hypoxia; J96.22 - Acute and chronic respiratory failure with hypercapnia (2) Pneumonia: Start date: 04/17/21 Start time: 13:15 Status: Acute Assessment and plan: Question of pna LSC, unsure if truly pna, vs COPD exacerbation Continue steroids given ceftriaxone day 3 continue respiratory medications use trilogy at home settings Qualifiers: Pneumonia type: due to unspecified organism Laterality: right Lung location: unspecified part of lung Qualified Code(s): J18.9 - Pneumonia, unspecified organism (3) COPD (chronic obstructive pulmonary disease): Start date: 04/17/21 Start time: 13:15 Status: Chronic Assessment and plan: will be given prednisone burst continue inhalers prn albuterol mucinex Qualifiers: COPD type: COPD with acute exacerbation Qualified Code(s): J44.1 - Chronic obstructive pulmonary disease with (acute) exacerbation (4) Cellulitis: Start date: 04/17/21 Start time: 13:15 Status: Acute Assessment and plan: with history of MRSA. started on vanco and ceftriaxone day 2 elevate legs DVT negative. This appears to be normal picture for patient. Afebrile will check crp and procal for am Qualifiers: Site of cellulitis: unspecified site Qualified Code(s): L03.90 - Cellulitis, unspecified (5) Type 2 diabetes mellitus: Start date: 04/17/21 Start time: 13:15 Status: Chronic Assessment and plan: A1C 7.8 in Jan 2021 diabetic diet and home meds sliding scale as needed Qualifiers: Diabetes mellitus custodial insulin use: without custodial use Diabetes mellitus complication status: without complication Qualified Code(s): E11.9 - Type 2 diabetes mellitus without complications (6) Atrial fibrillation: Start date: 04/17/21 Start time: 13:15 Status: Chronic Assessment and plan: rate controlled continue amiodarone and diltiazem recent history of epitaxis requiring rhinorocket. no rebleeding since. will hold apixaban tonight Qualifiers: Atrial fibrillation type: unspecified Qualified Code(s): I48.91 - Unspecified atrial fibrillation (7) Epistaxis: Start date: 04/17/21 Start time: 13:15 Status: Acute Assessment and plan: seen in ED and required packing 2-3 days a few days ago. Slightl bleeding today. Large clot in right nare. Read subjective. will hold apixaban until confirmed shes been restarted on it. humidify oxygen (8) COVID-19: Start date: 04/17/21 Start time: 13:15 Status: Acute Assessment and plan: fully vaccinated for covid tested negative by pcr in ED repeat testing today negative (9) DVT prophylaxis: Start date: 04/17/21 Start time: 13:15 Status: Acute Assessment and plan: fully anticoagulated on apixaban (10) Discharge planning issues: Start date: 04/17/21 Start time: 13:15 Status: Acute Assessment and plan: discharge to the [facility] when medically stable discussed with DR Davidson Subjective Subjective Interval history since last seen: Patient has large clot to anterior right nostril. Unable to move much air. She states this this is why she is having a hard time keeping cpap on. When assessing; very little room for air movement. Will trial nasal cleansing with 30 cc syringe and large bore catheter, if unsuccessful then normal saline ervin QID. Goal is to remove some dried blood for better air flow. She also c/o dry mouth. Cepacol lozenges for mouth to help with dry mouth. Otherwise [facility]. Second COVID negative. S Exam Const General: cooperative, comfortable and no acute distress Nutritional Appearance: obese Orientation: alert, awake and oriented x3 HENMT Head: normal to inspection, normocephalic and atraumatic General nose exam: nares abnormal and epistaxis on the right Face and sinus: dry mucous membranes and other (large dried blood clot to right nose, some fresh blood dripping from right ) Chest Chest: normal inspection of the chest Resp Effort & Inspection: normal respiratory effort Auscultation: diminished lung sounds Cardio Rate: regular rate Rhythm: regular rhythm GI Inspection: normal to inspection Palpation: soft Auscultation: normal bowel sounds Skin Lesions: lesion noted (lower extremities) Rashes: rashes noted (bilateral lower extremities) Neuro General: patient alert, patient awake and patient oriented x3 Extrem General: edema Laterality: bilateral Objective Last Vital Signs Temp 37.2 C 04/17/21 08:53 Pulse 80 04/17/21 08:53 Resp 12 04/17/21 08:53 BP 139/61 04/17/21 08:53 Pulse Ox 91 L 04/17/21 08:53 Laboratory Results - last 24 hr 04/17/21 04/17/21 04/17/21 06:35 06:35 09:10 WBC 16.09 H RBC 3.82 L Hgb 11.5 Hct 38.2 MCV 100.0 H MCH 30.1 MCHC 30.1 L RDW 14.7 H Plt Count 389 MPV 9.1 Immature Gran % 0.7 Neutrophils % 78.4 Lymphocytes % 15.4 Monocytes % 5.2 Eosinophils % 0.1 Basophils % 0.2 Nucleated RBC % 0 Absolute Neutrophils 12.61 H Absolute Lymphocytes 2.48 Absolute Monocytes 0.84 H Absolute Eosinophils 0.02 Absolute Basophils 0.03 Sodium 140 Potassium 3.2 L Chloride 95 L Carbon Dioxide 42.3 H Anion Gap 2.7 L BUN 22 H D Creatinine 0.9 Estimated GFR/1.73 m2 >= 60.00 Glucose 156 H Calcium 9.1 COVID-19 Source Nasal/Nares SARS-CoV-2 (PCR) Negative
[2021-04-17 17:20] VITALS: BP 124/70; PULSE 81; RESP 14; TEMP 37.5; O2SAT 93
--- NOTE | 2021-04-17 17:20 | NUR.NOTE ---
pt last BM 04/14/21, she states that she does not want any laxative today. She will tomorrow if constipation continues.
[2021-04-17 21:30] VITALS: O2SAT 92
[2021-04-17] MEDS: Levothyroxine 100 MCG TAB PO (21:58)
[2021-04-17] MEDS: guaiFENesin 600 MG TABCR 1200 MG PO (21:58)
[2021-04-17] MEDS: Insulin Glargine 300 UNITS/3 ML PEN 20 UNITS SC (22:01)
[2021-04-17] MEDS: Gabapentin 300 MG CAP PO (22:01)
[2021-04-17] MEDS: Normal Saline Flush 10 ML SYR IVP (22:08)
[2021-04-17 22:24] VITALS: BP 136/81; PULSE 83; RESP 17; TEMP 37.3; O2SAT 92
[2021-04-18 07:33] LABS: Absolute Basophil Count 0.04 10^3/uL (0.0-0.2); Absolute Lymphocyte Count 3.22 10^3/uL (1.2-3.4); Basophils % 0.3; Eosinophils % 0.8; HCT 38.1 % (36.0-46.0); HGB 11.4 g/dL (11.2-15.7); Immature Grans % 0.8; MCH 30.2 pg (27.0-33.0); MCHC 29.9 % (32.0-36.0); MCV 101.1 fL (80-95); MPV 8.7 fL (8.0-11.0); Monocytes % 6.2; Neutrophils % 66.9; Nucleated RBC 0 %; Platelet Count 376 10^3/uL (130-400); RBC 3.77 10^6/uL (3.93-5.22); RDW 14.6 % (11.7-14.6); RDW-SD 54.7 fL; WBC 12.89 10^3/uL (4.4-10.8)
[2021-04-18 07:35] LABS: Absolute Neutrophil Count 8.62 10^3/uL (1.2-6.7)
[2021-04-18 07:50] LABS: Anion Gap -0.2 mmol/L (3-11); BUN 26 mg/dL (7-18); C-Reactive Protein 2.65 mg/dL (0.0-0.3); CO2 43.2 mmol/L (21.0-32.0); CREATININE 0.9 mg/dL (0.55-1.02); Calcium 9.4 mg/dL (8.5-10.1); Chloride 96 mmol/L (98-107); Glucose 126 mg/dL (74-106); Potassium 3.8 mmol/L (3.5-5.1); Sodium 139 mmol/L (136-145)
[2021-04-18] MEDS: Amiodarone 200 MG TAB PO (08:03)
[2021-04-18] MEDS: Aspirin E.C. 81 MG TABEC PO (08:03)
[2021-04-18] MEDS: Ascorbic Acid 500 MG TAB PO (08:03)
[2021-04-18] MEDS: Citalopram 20 MG TAB PO (08:04)
[2021-04-18] MEDS: Cyanocobalamin 500 MCG TAB 1000 MCG PO (08:04)
[2021-04-18] MEDS: busPIRone 5 MG TAB PO (08:04)
[2021-04-18] MEDS: dilTIAZem CD 120 MG CAPCR 240 MG PO (08:04)
[2021-04-18] MEDS: Ferrous Sulfate 325 MG TAB PO (08:04)
[2021-04-18] MEDS: metFORMIN 500 MG TAB 750 MG PO (08:05)
[2021-04-18] MEDS: Furosemide 40 MG TAB 80 MG PO (08:05)
[2021-04-18] MEDS: guaiFENesin 600 MG TABCR 1200 MG PO (08:05)
[2021-04-18] MEDS: Nystatin POWDER 60 GM JAR TP (08:05)
[2021-04-18] MEDS: Folic Acid 1 MG TAB PO (08:05)
[2021-04-18] MEDS: Potassium Chloride 10 MEQ TABCR PO (08:06)
[2021-04-18] MEDS: Pantoprazole 20 MG TABCR PO (08:06)
[2021-04-18] MEDS: predniSONE 20 MG TAB 40 MG PO (08:06)
[2021-04-18] MEDS: Tiotropium/Olodaterol 10 PUFF INHALER 2 PUFF IH (08:06)
[2021-04-18] MEDS: Sodium Chloride-Nasal SPRAY-ADULT 44 ML BTL NS (08:06)
[2021-04-18] MEDS: Polyethylene Glycol 3350 17 GM PACKET PO (08:06)
[2021-04-18] MEDS: Tolterodine 2 MG CAPCR 4 MG PO (08:07)
[2021-04-18] MEDS: Insulin Aspart 300 UNITS/3 ML PEN SC (08:17)
[2021-04-18 08:20] VITALS: BP 137/75; PULSE 72; RESP 14; TEMP 36.6; O2SAT 94
[2021-04-18 08:22] LABS: Procalcitonin < 0.1 ng/mL
[2021-04-18] MEDS: DOXYCYCLINE 100 MG in Normal Saline 100 ML IVPB (10:13)
--- NOTE | 2021-04-18 10:42 | DSE_ITS ---
Date of service: 04/18/21 Time of Service: 10:43 DS: Diagnosis Discharge Diagnosis (1) Respiratory failure with hypoxia and hypercapnia: Start date: 04/18/21 Start time: 10:44 Status: Acute Asessment and Plan: Likely d/t combination of not being able to breathe through right nostril from having severe blood clot in it. Given saline QID now able to breath. Wore CPAP over night Pneumonia unlikely, procal negative, afebrile, no white count, likely COPD, with slight exacerbation. Unable to produce sputum, will continue a couple more days of steroid, and antibiotics. D/t unable to know if sputum discolored. However this is not pneumonia based on clinical picture. Patient at baseline. (2) Pneumonia: Start date: 04/18/21 Start time: 10:57 Status: Ruled-out Asessment and Plan: as above (3) COPD (chronic obstructive pulmonary disease): Start date: 04/18/21 Start time: 10:57 Status: Chronic Asessment and Plan: as above (4) Cellulitis: Start date: 04/18/21 Start time: 10:57 Status: Ruled-out Asessment and Plan: Patient baseline CRP procal is normal She does not appear to have cellulitis. Her legs appear to be baseline as previous admissions. She has venous stasis bilaterally DVT u/t negative. (5) Type 2 diabetes mellitus: Start date: 04/18/21 Start time: 10:59 Status: Chronic Asessment and Plan: continue with home regimen (6) Atrial fibrillation: Start date: 04/18/21 Start time: 11:01 Status: Chronic Asessment and Plan: controlled continue dilt, will lower apixaban to 2.5 BID d/t epistaxsis (7) Epistaxis: Start date: 04/18/21 Start time: 11:05 Status: Acute Asessment and Plan: Bleed for an hour. Large clot in right nostril causing breathing issues. Nasal saline QID has been effective continue, cut dosing of apixaban, possibly discontinue all together if continues and just use asa. Will defer to outpatient provider. (8) COVID-19: Start date: 04/18/21 Start time: 11:05 Status: Ruled-out Asessment and Plan: 2 negative swabs. last one yesterday Discussed with Dr. Davidson Discharge Plan Disposition [facility] Condition: Improving Discharge Details Reason For Visit: pneumonia Admit Date/Time: 04/15/21 14:32 Admit Provider: Andrew Roche Attending Provider: Andrew Roche [facility] Course: 70 y.o female admitted for COPD exacerbation with questionable bronchitis. There was thought of pneumonia however clinically she Home Meds and New Rx's Prescriptions: New guaifenesin [Mucinex] 600 mg Tablet Extended Release 12hr 1,200 mg PO BID Qty: 20 RF: 0 mupirocin 2 % ointment 1 applic topical QID Qty: 22 RF: 0 prednisone 20 mg Tablet 40 mg PO DAILY Qty: 4 RF: 0 [place] Nasal 0.65 % Aerosol,[place] 4 spray NS QID PRN PRNQty: 44 RF: 0 apixaban 2.5 mg tablet 2.5 mg PO BID Qty: 20 RF: 0 doxycycline hyclate 100 mg capsule 100 mg PO DAILY Qty: 10 RF: 0 cefpodoxime 100 mg tablet 100 mg PO BID Qty: 10 RF: 0 Continued pantoprazole 20 mg tablet,delayed release (DR/EC) 20 mg PO BID RF: 0 diltiazem HCl [DILT-XR] 240 mg capsule,ext.rel 24h degradable 240 mg PO QAM RF: 0 folic acid 1 mg Tablet 1 mg PO QAM RF: 0 albuterol sulfate 90 mcg/actuation HFA aerosol inhaler 2 inh INHALATION .Q4H,PRN PRNRF: 0 acetaminophen [Tylenol] 325 mg Tablet 650 mg PO Q4H PRNRF: 0 epinephrine 0.3 mg/0.3 mL Auto-Injector 0.3 mg IM PRN PRNRF: 0 amiodarone 200 mg tablet 200 mg PO DAILY RF: 0 furosemide [Lasix] 20 mg tablet 80 mg PO BID RF: 0 tolterodine 4 mg capsule,extended release 24hr 4 mg PO DAILY AM RF: 0 potassium chloride 10 mEq tablet extended release 10 meq PO DAILY AM RF: 0 ascorbic acid (vitamin C) [Vitamin C] 500 mg Tablet 500 mg PO BID RF: 0 gabapentin 300 mg Capsule 300 mg PO HS RF: 0 Lantus Solostar U-100 Insulin 100 unit/mL (3 mL) Insulin Pen 20 unit SUBCUT HS Qty: 0 RF: 0 levothyroxine 100 mcg Tablet 100 mcg PO HS RF: 0 polyethylene glycol 3350 [Miralax] 17 gram/dose Powder 17 g PO DAILY RF: 0 insulin aspart U-100 100 unit/mL (3 mL) Insulin Pen 1 sliding scale dose SUBCUT USEASDIRECTD RF: 0 metformin 500 mg tablet 750 mg PO BID RF: 0 triamcinolone acetonide 0.025 % cream 0 applic TOPICAL DIRECTED RF: 0 Trulicity 1.5 mg/0.5 mL pen injector 1.5 mg SUBCUT QWEEK RF: 0 Lactobacillus acidophilus Tablet 1 tab PO TID RF: 0 aspirin 81 mg Tablet,Chewable 81 mg PO DAILY RF: 0 citalopram 20 mg Tablet 20 mg PO DAILY RF: 0 vitamin B complex Tablet 1 tab PO DAILY RF: 0 ergocalciferol (vitamin D2) 1,250 mcg (50,000 unit) Capsule 1,250 mcg PO QWEEK RF: 0 buspirone 5 mg Tablet 5 mg PO TID RF: 0 ferrous sulfate 325 mg (65 mg iron) Tablet 325 mg PO BID RF: 0 T Gel Shampoo 1 applic topical .SUNDAY RF: 0 fluconazole [Diflucan] 200 mg Tablet 200 mg PO QWEEK RF: 0 Discontinued apixaban 5 mg tablet 5 mg PO BID RF: 0 [place] Saline Gel [place],Non-Aerosol 1 spray INTRANASAL DAILY RF: 0 No Action Stiolto Respimat 2.5-2.5 mcg/actuation mist 2 puff inhalation DAILY Qty: 4 RF: 12 (DME) BiPap See Rx Instructions .Route .MEDSUPPLY Qty: 1 RF: 0 Discharge Instructions Instructions: COPD (Chronic Obstructive Pulmonary Disease) (DC), How Your Lungs Work (DC), Chronic Lung Disease and Infection Prevention (DC) Additional Instructions: Take cefpodoxime and doxy for possible COPD exacerbation with bronchitis, Take nasal spray four times a day Your apixaban has been changed to 2.5 twice a day if you continue to have nose bleeds then you should talk to your provider about taking only aspirin Stand Alone Forms: Nursing Discharge Form Activity:: Activity as Tolerated Equipment/Supplies:: Oxygen (L/min Below) Diet:: Carb Counting Discharge Orders Discharge Orders: Discharge Order (Routine); Ordered 04/18/21 Ordered By: Pushpa Levy DS: Summary Time Spent with Patient providing and/or coordinating discharge services: Greater than 30 minutes Status at Discharge Functional status at discharge: uses cane/walker Overall status at discharge: patient is back to baseline Mental Status: mental status grossly normal Speech and Movement: speech and movement normal Mood: congruent mood Affect: normal affect Exam Const General: cooperative, comfortable and no acute distress Nutritional Appearance: obese Orientation: alert, awake and oriented x3 HENMT Head: normal to inspection, normocephalic and atraumatic General nose exam: nares abnormal and epistaxis (improved, small blood clot to right nostril.) on the right Chest Chest: normal inspection of the chest Resp Effort & Inspection: normal respiratory effort Auscultation: diminished lung sounds Cardio Rate: regular rate Rhythm: regular rhythm GI Inspection: normal to inspection Palpation: soft Auscultation: normal bowel sounds Skin Lesions: lesion noted (lower extremities) Rashes: rashes noted (bilateral lower extremities) Neuro General: patient alert, patient awake and patient oriented x3 Extrem General: edema Laterality: bilateral Psych Mental Status: mental status grossly normal Speech and Movement: speech and movement normal Mood: congruent mood Affect: normal affect DS: Data Vitals/I&O Vitals and I&O: Vital Signs Temperature 36.6 C 04/18/21 08:20 Temperature Source Tympanic 04/18/21 08:20 Pulse 72 04/18/21 08:20 Pulse Rhythm Irregular 04/18/21 03:19 Respiratory Rate 14 04/18/21 08:20 Respiratory Effort Non-Labored 04/18/21 03:19 Respiratory Depth Normal 04/18/21 03:19 Respiratory Pattern Normal 04/18/21 03:19 Blood Pressure 137/75 04/18/21 08:20 Blood Pressure Position Supine 04/15/21 10:38 Pulse Oximetry 94 04/18/21 08:20 Oxygen Delivery Method Nasal Cannula 04/18/21 08:20 Oxygen Flow Rate 3 04/18/21 08:20 Fraction of Inspired Oxygen (FIO2) 37 04/17/21 08:05 Pain Level 0 04/16/21 08:48 Intake & Output 04/17/21 04/17/21 04/18/21 11:59 23:59 11:59 Intake Total 350 / 450 100 / 450 Output Total 800 / 5150 4350 / 5150 600 / 600 Balance -450 / -4700 -4250 / -4700 -600 / -600 Intake: IV 100 / 200 100 / 200 Oral 250 / 250 Output: Urine 800 / 5150 4350 / 5150 600 / 600 Other: Urine Color Yellow Yellow Yellow Urine Appearance Clear Clear Clear Urine Odor Normal Normal Normal Stool Size Large Stool Characteristics Formed Voiding Methods Bedside Commode Bedside Commode Bedside Commode Data Completed and Pending Completed studies during hospitalization [Text1]: Exam(s) XR PORTABLE CHEST AP EXAM: XR PORTABLE CHEST AP CLINICAL HISTORY: SOB, hx CHF. PUI TECHNIQUE: 2D digital imaging was performed of the chest. One image was obtained. An AP view was obtained. COMPARISON: CR,XR XR PORTABLE CHEST AP from 12/12/2020 CR,XR XR CHEST 2V PA LATERAL from 01/02/2021 CR XR PORTABLE CHEST AP from 01/13/2021 FINDINGS: MEDIASTINUM: Normal. HEART: Normal. PULMONARY VASCULATURE: Normal. LUNGS: There is a question of an infiltrate in the right lung base. PLEURAL SPACE: No pleural effusion or pneumothorax. BONE:Within normal limits for the patient's age. OTHER FINDINGS:Normal. IMPRESSION: Question of a right basilar infiltrate. Exam(s) US LOWER EXTREMITY VENOUS RT EXAM: US LOWER EXTREMITY VENOUS RT CLINICAL HISTORY: L > R edema TECHNIQUE: Right lower extremity venous ultrasound performed using grayscale, color-flow, and spectral Doppler analysis. COMPARISON: No exams were available for comparison FINDINGS: Examination limited due to patient body habitus. The right common femoral, femoral and popliteal veins demonstrate normal compressibility, augmentation, and color Doppler. The posterior tibial veins are patent. The saphenofemoral junction is unremarkable. There is no evidence of a Morrissey cyst. The soft tissues are unremarkable. IMPRESSION: 1. No DVT. DATA REPOSITORY: Exam(s) US LOWER EXTREMITY VENOUS LT EXAM: US LOWER EXTREMITY VENOUS LT CLINICAL HISTORY: L > R edema TECHNIQUE: Left lower extremity venous ultrasound performed using grayscale, color-flow, and spectral Doppler analysis. COMPARISON: No exams were available for comparison FINDINGS: Examination is limited due to patient body habitus. The left common femoral, femoral and popliteal veins demonstrate normal compressibility, augmentation, and color Doppler. The posterior tibial veins are not well visualized secondary to patient body habitus. The saphenofemoral junction is unremarkable. There is no evidence of a Morrissey cyst. The soft tissues are unremarkable. IMPRESSION: No DVT. Labs on day of discharge: Labs from last 24 hours 04/18/21 04/18/21 04/18/21 07:00 07:00 07:00 WBC 12.89 H RBC 3.77 L Hgb 11.4 Hct 38.1 MCV 101.1 H MCH 30.2 MCHC 29.9 L RDW 14.6 Plt Count 376 MPV 8.7 Immature Gran % 0.8 Neutrophils % 66.9 Lymphocytes % 25.0 Monocytes % 6.2 Eosinophils % 0.8 Basophils % 0.3 Nucleated RBC % 0 Absolute Neutrophils 8.62 H Absolute Lymphocytes 3.22 Absolute Monocytes 0.80 Absolute Eosinophils 0.10 Absolute Basophils 0.04 Sodium 139 Potassium 3.8 Chloride 96 L Carbon Dioxide 43.2 H Anion Gap -0.2 L BUN 26 H Creatinine 0.9 Estimated GFR/1.73 m2 >= 60.00 Glucose 126 H Calcium 9.4 Magnesium 2.0 C-Reactive Protein 2.65 H Procalcitonin < 0.1 SARS-CoV-2 (PCR) 04/17/21 09:10 WBC RBC Hgb Hct MCV MCH MCHC RDW Plt Count MPV Immature Gran % Neutrophils % Lymphocytes % Monocytes % Eosinophils % Basophils % Nucleated RBC % Absolute Neutrophils Absolute Lymphocytes Absolute Monocytes Absolute Eosinophils Absolute Basophils Sodium Potassium Chloride Carbon Dioxide Anion Gap BUN Creatinine Estimated GFR/1.73 m2 Glucose Calcium Magnesium C-Reactive Protein Procalcitonin SARS-CoV-2 (PCR) Negative Preliminary micro results at discharge 04/15/21 11:10 Blood Culture - Preliminary Blood NO GROWTH 48 HOURS 04/15/21 11:00 Blood Culture - Preliminary Blood NO GROWTH 48 HOURS PFSH All Active Problems Hypercarbia (Acute) Anterior epistaxis (Acute) Epistaxis (Acute) Pulmonary nodule (Acute) COPD (chronic obstructive pulmonary disease) (Chronic) Respiratory failure with hypoxia and hypercapnia (Acute) Morbid obesity (Acute) Vitamin D deficiency (Acute) MRSA (methicillin resistant staph aureus) culture positive (Acute) Hypoxia (Acute) Hypothyroidism (Chronic) Bilateral cellulitis of lower leg (Acute) Localized swelling of both lower legs (Acute) On amiodarone therapy (Acute) Palliative care patient (Acute) Cellulitis of left lower leg (Acute) Atrial fibrillation (Chronic) Plaque psoriasis (Acute) GERD (gastroesophageal reflux disease) (Chronic) Hypercholesterolemia (Acute) Type 2 diabetes mellitus (Chronic) Discharge planning issues (Acute) DVT prophylaxis (Acute) Obesity (Chronic) CHF (congestive heart failure) (Chronic) Family history unobtainable due to patient's condition (Acute) Medical History Acute and chronic respiratory failure with hypercapnia Acute exacerbation of chronic obstructive pulmonary disease Acute on chronic respiratory failure with hypoxia and hypercapnia Acute respiratory distress Acute respiratory distress Altered mental status Arthritis Cellulitis bilateral lower extremities Cellulitis CHF (congestive heart failure) Chronic atrial fibrillation, unspecified Chronic respiratory failure with hypoxia COPD (chronic obstructive pulmonary disease) Diabetes mellitus HCAP (healthcare-associated pneumonia) HCAP (healthcare-associated pneumonia) HCAP (healthcare-associated pneumonia) Methicillin susceptible Staphylococcus aureus infection as the cause of diseases classified elsewhere Mood disorder Morbid (severe) obesity with alveolar hypoventilation Muscle weakness (generalized) Obesity Pneumonia Sepsis Sepsis Streptococcal bacteremia Toxic metabolic encephalopathy Type 2 diabetes mellitus with hyperglycemia Surgical History H/O hand surgery right index finger removal of tendon sheath ganglion H/O: hysterectomy History of carpal tunnel surgery of right wrist History of excision of lesion abdominal cyst removed S/P appendectomy Family History Father Heart disease 2 [place], at 62 Mother Heart disease Social History Smoking/Tobacco Use Status: Former Tobacco Use Smoking risk assessment performed?: Yes Alcohol Intake: never Drug use: Never Substance use type: does not use Do you feel safe at home: Yes Do you feel safe in your relationship?: Yes
[2021-04-18] MEDS: Furosemide 80 MG TAB PO (11:00)
--- NOTE | 2021-04-18 12:55 | PDOC.CMDIS ---
- If Service Date Differs Date of service: 04/18/21 Time of Service: 12:56 LACE Index Scoring Tool - Questions: Length of Stay (in days): 3 Acuity (Admit via E.D.?): Yes Comorbidities: Diabetes w/o Complication, Congestive Heart Failure, Chronic Pulmonary Disease, Mild Liver/Renal Disease E.D. Visits: 7 - Answers: Total Score: 15 Risk of Readmission: High Risk Care Management Discharge Reason for Hospitalization: Pneumonia. Discharge Plan: Marlen returned to the [facility] today after being medically cleared. She was transported via [facility] wheelchair van, coordinated by CM. She will follow up with facility providers, and her discharge plan of care. Patient/Family Education Needs: Review discharge instructions and limitations, discussion of self care needs including ask me three and goals of care. Services Needed at Discharge: [facility] Facility ([facility]), Transportation ([facility] w/c van)
--- NOTE | 2021-04-18 14:32 | PCNE_ITS ---
Date of service: 04/18/21 Time of Service: 07:32 History of Present Illness History of Present Illness Chief Complaint: leg edema and redness Narrative: Marlen is a 70-year-old woman who lives at the [facility]. I know her very well. I see her for palliative care at the [facility]. She has chronic problems with crackles in her lungs secondary to poor inspiration. She also has chronic leg redness and edema. She was at the [facility] and not doing so well. Yolanda [employer] ordered labs. The white count came back elevated at seventeen thousand. She was started on oral medication but when she continued to spiral downwards she was sent to the emergency room for evaluation. In the emergency room she was thought to have right-sided pneumonia and cellulitis of her legs. She has received antibiotics. She states that she is feeling well, or at least her baseline. She is anxious to get back to the [facility]. Assessment and Plan Assessment and plan (1) Cellulitis: Status: Ruled-out Assessment and plan: On antibiotics. Uncertain if this is just chronic changes of venous stasis and real true cellulitis. I am glad she is improving Qualifiers: Site of cellulitis: unspecified site Qualified Code(s): L03.90 - Cellulitis, unspecified (2) Hypercarbia: Status: Acute Assessment and plan: Pulmonology has written out explicit instructions for her trilogy machine at night. It is imperative that the nurses follow this at the [facility]. (3) COPD (chronic obstructive pulmonary disease): Status: Chronic Qualifiers: COPD type: COPD with acute exacerbation Qualified Code(s): J44.1 - Chronic obstructive pulmonary disease with (acute) exacerbation (4) Respiratory failure with hypoxia and hypercapnia: Status: Acute Assessment and plan: She cannot have her oxygen high, or she will end up hypercapnic. I have emphasizes many times at the [facility]. Qualifiers: Chronicity: acute on chronic Qualified Code(s): J96.21 - Acute and chronic respiratory failure with hypoxia; J96.22 - Acute and chronic respiratory failure with hypercapnia (5) Palliative care patient: Status: Acute Assessment and plan: At this time Marlen appears to be at baseline. She is doing very well with her breathing as well as any leg changes. I would recommend that she return to the [facility] and complete her antibiotic outpatient. I appreciate Dr. Santiago's instructions to the nursing at the [facility] as to what exactly needs to be done evenings for her trilogy machine. Marlen lots of times resists wearing this although she says she breathes better with it on. I will follow her for palliative care while at the [facility]. Review of Systems Narrative: Marlen is always short of breath. She does have up trilogy machine as well as oxygen to use as needed. She is hypercapnic so she can should not go above 2 L. Her legs are always edematous. She does not feel that they are any itchier, hot, or painful than usual. [facility] All Active Problems Hypercarbia (Acute) Anterior epistaxis (Acute) Epistaxis (Acute) Pulmonary nodule (Acute) COPD (chronic obstructive pulmonary disease) (Chronic) Respiratory failure with hypoxia and hypercapnia (Acute) Morbid obesity (Acute) Vitamin D deficiency (Acute) MRSA (methicillin resistant staph aureus) culture positive (Acute) Hypoxia (Acute) Hypothyroidism (Chronic) Bilateral cellulitis of lower leg (Acute) Localized swelling of both lower legs (Acute) On amiodarone therapy (Acute) Palliative care patient (Acute) Cellulitis of left lower leg (Acute) Atrial fibrillation (Chronic) Plaque psoriasis (Acute) GERD (gastroesophageal reflux disease) (Chronic) Hypercholesterolemia (Acute) Type 2 diabetes mellitus (Chronic) Discharge planning issues (Acute) DVT prophylaxis (Acute) Obesity (Chronic) CHF (congestive heart failure) (Chronic) Family history unobtainable due to patient's condition (Acute) Medical History Acute and chronic respiratory failure with hypercapnia Acute exacerbation of chronic obstructive pulmonary disease Acute on chronic respiratory failure with hypoxia and hypercapnia Acute respiratory distress Acute respiratory distress Altered mental status Arthritis Cellulitis bilateral lower extremities Cellulitis CHF (congestive heart failure) Chronic atrial fibrillation, unspecified Chronic respiratory failure with hypoxia COPD (chronic obstructive pulmonary disease) Diabetes mellitus HCAP (healthcare-associated pneumonia) HCAP (healthcare-associated pneumonia) HCAP (healthcare-associated pneumonia) Methicillin susceptible Staphylococcus aureus infection as the cause of diseases classified elsewhere Mood disorder Morbid (severe) obesity with alveolar hypoventilation Muscle weakness (generalized) Obesity Pneumonia Sepsis Sepsis Streptococcal bacteremia Toxic metabolic encephalopathy Type 2 diabetes mellitus with hyperglycemia Surgical History H/O hand surgery right index finger removal of tendon sheath ganglion H/O: hysterectomy History of carpal tunnel surgery of right wrist History of excision of lesion abdominal cyst removed S/P appendectomy Family History Father Heart disease 2 [place], at 62 Mother Heart disease Social History Smoking/Tobacco Use Status: Former Tobacco Use Smoking risk assessment performed?: Yes Alcohol Intake: never Drug use: Never Substance use type: does not use Do you feel safe at home: Yes Do you feel safe in your relationship?: Yes Exam Narrative Exam Narrative: Marlen is sitting in a chair. She is talking to me in complete sentences. She does not appear at this time to be short of breath. Her heart is regular. Lungs?rales on the right side. She has diminished airflow. Her legs are very edematous. They are red. They are similar to how I have seen her on multiple occasions at the [facility]. Results Last Vital Signs Temp 97.9 F 04/18/21 08:20 Pulse 72 04/18/21 08:20 Resp 14 04/18/21 08:20 BP 137/75 04/18/21 08:20 Pulse Ox 94 04/18/21 08:20 Labs Result diagrams: 04/18/21 07:00 04/18/21 07:00 Labs: Laboratory Results - last 24 hr 04/18/21 04/18/21 04/18/21 07:00 07:00 07:00 WBC 12.89 H RBC 3.77 L Hgb 11.4 Hct 38.1 MCV 101.1 H MCH 30.2 MCHC 29.9 L RDW 14.6 Plt Count 376 MPV 8.7 Immature Gran % 0.8 Neutrophils % 66.9 Lymphocytes % 25.0 Monocytes % 6.2 Eosinophils % 0.8 Basophils % 0.3 Nucleated RBC % 0 Absolute Neutrophils 8.62 H Absolute Lymphocytes 3.22 Absolute Monocytes 0.80 Absolute Eosinophils 0.10 Absolute Basophils 0.04 Sodium 139 Potassium 3.8 Chloride 96 L Carbon Dioxide 43.2 H Anion Gap -0.2 L BUN 26 H Creatinine 0.9 Estimated GFR/1.73 m2 >= 60.00 Glucose 126 H Calcium 9.4 Magnesium 2.0 C-Reactive Protein 2.65 H Procalcitonin < 0.1
== END 2021-04-18 11:31 | disposition intermediate care facility (04) | DRG 189 ==
LOC: ER 14:02 → MS 16:37
PROVIDERS: Family Medicine; Nurse Practitioner Acute Care; Nurse Practitioner Family; Admitting Provider Family Medicine; Emergency Provider Emergency Medicine; PCP Family Medicine; Visit Provider Family Medicine
DX: J96.21 Acute and chronic respiratory failure with hypoxia (principal); J44.1 Chronic obstructive pulmonary disease with (acute) exacerbation; E66.2 Morbid (severe) obesity with alveolar hypoventilation; Z68.43 Body mass index [BMI] 50.0-59.9, adult; L03.115 Cellulitis of right lower limb; J96.22 Acute and chronic respiratory failure with hypercapnia; L03.116 Cellulitis of left lower limb; I50.9 Heart failure, unspecified; I48.91 Unspecified atrial fibrillation; E11.9 Type 2 diabetes mellitus without complications; Z79.84 Long term (current) use of oral hypoglycemic drugs; E55.9 Vitamin D deficiency, unspecified; E03.9 Hypothyroidism, unspecified; L40.0 Psoriasis vulgaris; K21.9 Gastro-esophageal reflux disease without esophagitis; E78.00 Pure hypercholesterolemia, unspecified; R04.0 Epistaxis; Z20.822 Contact with and (suspected) exposure to COVID-19; J34.89 Other specified disorders of nose and nasal sinuses
CPT/HCPCS: 36415; 80048; 80053; 82805; 84145; 87040; 87081; 87635; 87637; 93005; 94640; 96365; 96367; 96375; 99284; 99285; 36600; 71045; 81003; 83605; 83735; 83880; 84484; 85025; 86140; 93010; 93971; 99223; 99232; 99239; J0696; J2930; J3490; J7512; J7620

== ENCOUNTER 2021-04-19 16:00 | Outpatient (REF) | payer MEDICARE, MEDICAID, SELFPAY ==
[2021-04-19 14:53] LABS: Abs Immature Grans 0.11 10^3/uL (0.0-0.06); Absolute Eosinophil Count 0.22 10^3/uL (0.0-0.7); Absolute Lymphocyte Count 4.16 10^3/uL (1.2-3.4); Absolute Neutrophil Count 8.92 10^3/uL (1.2-6.7); Basophils % 0.3; Eosinophils % 1.5; HCT 38.8 % (36.0-46.0); HGB 11.5 g/dL (11.2-15.7); Immature Grans % 0.8; Lymphocytes % 28.8; MCH 30.4 pg (27.0-33.0); MCHC 29.6 % (32.0-36.0); MCV 102.6 fL (80-95); MPV 9.4 fL (8.0-11.0); Monocytes % 6.9; Neutrophils % 61.7; Nucleated RBC 0 %; Platelet Count 406 10^3/uL (130-400); RBC 3.78 10^6/uL (3.93-5.22); RDW 14.6 % (11.7-14.6); RDW-SD 56.1 fL; WBC 14.46 10^3/uL (4.4-10.8)
[2021-04-19 14:57] LABS: Absolute Basophil Count 0.04 10^3/uL (0.0-0.2)
[2021-04-19 15:33] LABS: Hemoglobin A1C 6.2 % (<5.7)
[2021-04-19 16:00] LABS: ALT 26 U/L (14-59); AST 18 U/L (15-37); Albumin 3.1 g/dL (3.4-5.0); Alkaline Phosphatase 86 U/L (46-116); Anion Gap 4.3 mmol/L (3-11); BUN 24 mg/dL (7-18); Bilirubin, Total 0.1 mg/dL (0.2-1.0); CO2 40.7 mmol/L (21.0-32.0); CREATININE 0.9 mg/dL (0.55-1.02); Calcium 9.5 mg/dL (8.5-10.1); Chloride 97 mmol/L (98-107); Glucose 110 mg/dL (74-106); Potassium 3.7 mmol/L (3.5-5.1); Sodium 142 mmol/L (136-145); TSH (W/Ref FT4) 3.04 uIU/mL (0.36-3.74); Total Protein 6.6 g/dL (6.4-8.2); Vitamin B12 876 pg/mL (193-986)
== END 2021-04-19 16:01 | disposition home or self-care (01) ==
LOC: LBN 16:00
PROVIDERS: PCP Family Medicine; Visit Provider Nurse Practitioner Gerontology
DX: E11.65 Type 2 diabetes mellitus with hyperglycemia (principal); J96.91 Respiratory failure, unspecified with hypoxia; E03.9 Hypothyroidism, unspecified; D51.9 Vitamin B12 deficiency anemia, unspecified; J18.9 Pneumonia, unspecified organism
CPT/HCPCS: 80053; 82607; 83036; 84443; 85025

== ENCOUNTER 2021-04-26 11:21 | Outpatient (REF) | payer MEDICARE, MEDICAID, SELFPAY ==
[2021-04-26 11:28] LABS: Abs Immature Grans 0.14 10^3/uL (0.0-0.06); Absolute Basophil Count 0.05 10^3/uL (0.0-0.2); Absolute Eosinophil Count 0.32 10^3/uL (0.0-0.7); Absolute Lymphocyte Count 2.33 10^3/uL (1.2-3.4); Basophils % 0.4; Eosinophils % 2.8; HCT 37.5 % (36.0-46.0); HGB 11.1 g/dL (11.2-15.7); Immature Grans % 1.2; Lymphocytes % 20.5; MCH 30.6 pg (27.0-33.0); MCHC 29.6 % (32.0-36.0); MCV 103.3 fL (80-95); MPV 9.3 fL (8.0-11.0); Monocytes % 6.8; Neutrophils % 68.3; Nucleated RBC 0 %; Platelet Count 366 10^3/uL (130-400); RBC 3.63 10^6/uL (3.93-5.22); RDW 15.3 % (11.7-14.6); RDW-SD 57.6 fL; WBC 11.39 10^3/uL (4.4-10.8)
[2021-04-26 11:36] LABS: Absolute Monocyte Count 0.77 10^3/uL (0.1-0.8); Absolute Neutrophil Count 7.78 10^3/uL (1.2-6.7)
[2021-04-26 11:39] LABS: ALT 22 U/L (14-59); AST 17 U/L (15-37); Albumin 2.9 g/dL (3.4-5.0); Alkaline Phosphatase 64 U/L (46-116); Anion Gap 2.1 mmol/L (3-11); BUN 12 mg/dL (7-18); Bilirubin, Total 0.2 mg/dL (0.2-1.0); CO2 41.9 mmol/L (21.0-32.0); CREATININE 0.9 mg/dL (0.55-1.02); Calcium 9.1 mg/dL (8.5-10.1); Chloride 96 mmol/L (98-107); Glucose 184 mg/dL (74-106); Potassium 4.2 mmol/L (3.5-5.1); Sodium 140 mmol/L (136-145); Total Protein 6.1 g/dL (6.4-8.2)
== END 2021-04-26 11:22 | disposition home or self-care (01) ==
LOC: LBN 11:21
PROVIDERS: PCP Family Medicine; Visit Provider Nurse Practitioner Gerontology
DX: E11.9 Type 2 diabetes mellitus without complications; J18.9 Pneumonia, unspecified organism
CPT/HCPCS: 80053; 85025

== ENCOUNTER 2021-05-03 15:23 | Outpatient (REF) | payer MEDICARE, MEDICAID, SELFPAY ==
[2021-05-03 17:55] LABS: Abs Immature Grans 0.04 10^3/uL (0.0-0.06); Absolute Basophil Count 0.05 10^3/uL (0.0-0.2); Absolute Eosinophil Count 0.35 10^3/uL (0.0-0.7); Absolute Lymphocyte Count 2.12 10^3/uL (1.2-3.4); Absolute Monocyte Count 0.64 10^3/uL (0.1-0.8); Basophils % 0.6; Eosinophils % 4.1; HCT 41.1 % (36.0-46.0); HGB 11.7 g/dL (11.2-15.7); Immature Grans % 0.5; Lymphocytes % 24.9; MCH 29.8 pg (27.0-33.0); MCHC 28.5 % (32.0-36.0); MCV 104.6 fL (80-95); MPV 9.6 fL (8.0-11.0); Monocytes % 7.5; Neutrophils % 62.4; Nucleated RBC 0 %; Platelet Count 310 10^3/uL (130-400); RBC 3.93 10^6/uL (3.93-5.22); RDW 15.2 % (11.7-14.6); RDW-SD 58.4 fL
[2021-05-03 18:15] LABS: Anion Gap 5.7 mmol/L (3-11); BUN 9 mg/dL (7-18); CO2 39.3 mmol/L (21.0-32.0); CREATININE 0.9 mg/dL (0.55-1.02); Calcium 9.1 mg/dL (8.5-10.1); Chloride 97 mmol/L (98-107); Glucose 151 mg/dL (74-106); Potassium 3.7 mmol/L (3.5-5.1); Sodium 142 mmol/L (136-145)
== END 2021-05-03 15:24 | disposition home or self-care (01) ==
LOC: LBN 15:23
PROVIDERS: PCP Family Medicine; Visit Provider Nurse Practitioner Gerontology
DX: L98.8 Other specified disorders of the skin and subcutaneous tissue (principal); L03.90 Cellulitis, unspecified; R19.7 Diarrhea, unspecified
CPT/HCPCS: 80048; 85025

== ENCOUNTER 2021-05-03 16:58 | Outpatient (REF) | payer MEDICARE, MEDICAID, SELFPAY | END 2021-05-03 16:59 | disposition home or self-care (01) | LOC: LBN 16:58 | PROVIDERS: PCP Family Medicine; Visit Provider Nurse Practitioner Gerontology ==

== ENCOUNTER → 2021-05-31 10:37 | Outpatient (BNVA) | payer MEDICARE, MEDICAID, SELFPAY | PROVIDERS: PCP Family Medicine; Visit Provider Internal Medicine Cardiovascular Disease | DX: I48.91 Unspecified atrial fibrillation (principal); I50.9 Heart failure, unspecified; J96.22 Acute and chronic respiratory failure with hypercapnia; Z79.899 Other long term (current) drug therapy | CPT/HCPCS: 99214; 99213 ==

== ENCOUNTER 2021-05-31 14:38 | Outpatient (REF) | payer MEDICARE, MEDICAID, SELFPAY ==
[2021-06-02 05:30] LABS: Vitamin D 25 Total 26.6 ng/mL (30-100)
== END 2021-05-31 14:39 | disposition home or self-care (01) ==
LOC: LBN 14:38
PROVIDERS: PCP Family Medicine; Visit Provider Nurse Practitioner Gerontology
DX: J96.91 Respiratory failure, unspecified with hypoxia (principal); E03.9 Hypothyroidism, unspecified; E11.65 Type 2 diabetes mellitus with hyperglycemia; E70.5 Disorders of tryptophan metabolism
CPT/HCPCS: 82306

== ENCOUNTER 2021-06-02 02:30 | Outpatient (CLI) | payer MEDICARE, MEDICAID, SELFPAY ==
--- NOTE | 2021-06-02 07:15 | DI.CTLCSR_ITS ---
Exam(s) CT CHEST LUNG CANCER SCREEN EXAM: CT CHEST LUNG CANCER SCREEN CLINICAL HISTORY: Screening for lung cancer,former smoker, z87.891 TECHNIQUE: Imaging Protocol: Axial computed tomography images with coronal and sagittal reformatted images were created and reviewed COMPARISON: CT CT CHEST PE CTA from 06/29/2020 FINDINGS: Examination is compromised due to patient body habitus. Tracheobronchial tree: Patent where visualized. Pulmonary parenchyma: Scarring or atelectasis is seen in the right middle lobe. No architectural dis tortion. Lung Nodules: There is a stable 6.5 mm nodule in the lateral aspect of the right lower lobe. There is a stable adjacent 6.6 mm nodule in the right lower lobe. No new pulmonary nodules are present. Mediastinum and Kirsten: No dominant adenopathy or fluid collection. The esophagus is unremarkable. Thyroid gland: There again seen multiple thyroid nodules. Lymph nodes: Unremarkable. Pleura: No effusion or pneumothorax. Heart: The heart is not dilated. Coronary artery calcification is present. No pericardial effusion. Aorta: Thoracic aorta non-dilated.Atherosclerosis. Upper abdomen: Unremarkable. Soft Tissues: Unremarkable. Bones: Since the prior examination there is a compression deformity of the T11 vertebral body. There is loss of approximately 20 percent of the height of the vertebral body anteriorly. No retropulsion is identified. There is also been a compression deformity of the T6 vertebral body with mild loss o f height of the vertebral body anteriorly. No retropulsion is seen. IMPRESSION: 1. Stable pulmonary nodules. No new pulmonary nodules. 2. Interval compression deformities of T6 and T11 since 06/29/2020. These are of indeterminate acuity . Lung RADS Cat 2 - Benign Appearance / Behavior: Nodules with a very low likelihood of becoming a clin ically active cancer due to size or lack of growth Lung-RADS 1.0 CATEGORIES: Category 0 - Prior chest CT exam(s) being located for comparison. Category 1 - Annual screening in 12 months. No nodules or definitely benign nodules. Category 2 - Annual screening in 12 months. Benign appearance. Nodules with low likelihood of becomin g active cancer. Category 3 - 6-month follow-up. Probably benign. Short-term follow-up suggested. Nodules with low lik elihood of becoming active cancer. Category 4A - 3-month follow-up and CT/PET if >8 mm in size. Suspicious finding. Findings which requi re additional testing. Category 4B - Findings which require additional testing and tissue sampling. Suspicious finding. Category 4X - Category 3 or 4 nodules with additional features or imaging findings that increases the suspicion of malignancy. Modifier S- Potentially clinically significant finding. (Non lung cancer) RADIATION DOSE DELIVERED: 83.94mGy.cm Total DLP !Error CTDIvol 83.94mGy.cm Total DLP 2.21mGy CTDIvol DATA REPOSITORY: All CT scans at this facility are submitted to the National Radiology Data Registry (NRDR) Dose Index Registry (DIR) with the [employer] ([employer]). RADIATION OPTIMIZATION: All CT scans at this facility use at least one of these dose optimization te chniques: automated exposure control; mA and/or kV adjustment per patient size (includes targeted exa ms where dose is matched to clinical indication); or iterative reconstruction.
== END 2021-06-02 02:50 ==
PROVIDERS: PCP Family Medicine; Visit Provider Student in an Organized Health Care Education/Training Program
DX: Z87.891 Personal history of nicotine dependence (principal); Z12.2 Encounter for screening for malignant neoplasm of respiratory organs; R91.8 Other nonspecific abnormal finding of lung field
CPT/HCPCS: 71271

== ENCOUNTER 2021-07-06 14:47 | Outpatient (REF) | payer MEDICARE, MEDICAID, SELFPAY ==
[2021-07-06 15:45] LABS: Abs Immature Grans 0.04 10^3/uL (0.0-0.06); Absolute Basophil Count 0.04 10^3/uL (0.0-0.2); Absolute Eosinophil Count 0.28 10^3/uL (0.0-0.7); Absolute Monocyte Count 0.58 10^3/uL (0.1-0.8); Absolute Neutrophil Count 6.16 10^3/uL (1.2-6.7); Basophils % 0.5; Eosinophils % 3.2; HCT 42.1 % (36.0-46.0); HGB 12.7 g/dL (11.2-15.7); Immature Grans % 0.5; Lymphocytes % 18.4; MCH 30.5 pg (27.0-33.0); MCHC 30.2 % (32.0-36.0); MCV 101.2 fL (80-95); MPV 9.8 fL (8.0-11.0); Monocytes % 6.7; Neutrophils % 70.7; Platelet Count 260 10^3/uL (130-400); RBC 4.16 10^6/uL (3.93-5.22); RDW-SD 52.5 fL
[2021-07-06 15:47] LABS: ALT 25 U/L (14-59); AST 25 U/L (15-37); Albumin 3.2 g/dL (3.4-5.0); Alkaline Phosphatase 77 U/L (46-116); Anion Gap 3.2 mmol/L (3-11); BUN 12 mg/dL (7-18); Bilirubin, Total 0.2 mg/dL (0.2-1.0); CO2 41.8 mmol/L (21.0-32.0); CREATININE 0.7 mg/dL (0.55-1.02); Calcium 8.9 mg/dL (8.5-10.1); Chloride 97 mmol/L (98-107); Glucose 134 mg/dL (74-106); Potassium 3.9 mmol/L (3.5-5.1); Sodium 142 mmol/L (136-145); Total Protein 6.8 g/dL (6.4-8.2)
== END 2021-07-06 14:48 | disposition home or self-care (01) ==
LOC: LBN 14:47
PROVIDERS: PCP Family Medicine; Visit Provider Nurse Practitioner Gerontology
DX: L29.8 Other pruritus (principal)
CPT/HCPCS: 80053; 85025

== ENCOUNTER → 2021-07-21 01:04 | Outpatient (CLI) | payer MEDICARE, MEDICAID, SELFPAY ==
--- NOTE | 2021-07-21 12:50 | DI.RAD_ITS ---
Exam(s) XR KNEE RT 3V AP,LAT,ELMA EXAM: XR KNEE RT 3V AP,LAT,ELMA CLINICAL HISTORY: RT KNEE PAIN S/P FALL TECHNIQUE: COMPARISON: No exams were available for comparison FINDINGS: Three views were obtained. There is narrowing of the medial tibiofemoral cartilaginous joint space. There are moderate marginal osteophytes of the joints of the knee. There is possible small joint ef fusion seen on the lateral view. There is no evidence of acute fracture or dislocation. IMPRESSION: RADIATION DOSE DELIVERED: Total DLP
== END ==
PROVIDERS: PCP Family Medicine; Visit Provider Nurse Practitioner Gerontology
DX: M25.561 Pain in right knee (principal); M25.461 Effusion, right knee; M25.761 Osteophyte, right knee
CPT/HCPCS: 73562

== ENCOUNTER 2021-08-01 13:44 | Outpatient (REF) | payer MEDICARE, MEDICAID, SELFPAY ==
[2021-08-01 16:24] LABS: Abs Immature Grans 0.05 10^3/uL (0.0-0.06); Absolute Basophil Count 0.05 10^3/uL (0.0-0.2); Absolute Eosinophil Count 0.37 10^3/uL (0.0-0.7); Absolute Monocyte Count 0.63 10^3/uL (0.1-0.8); Basophils % 0.5; Eosinophils % 3.5; HCT 42.5 % (36.0-46.0); Immature Grans % 0.5; Lymphocytes % 19.8; MCH 30.5 pg (27.0-33.0); MCHC 30.6 % (32.0-36.0); MCV 100 fL (80-95); MPV 10.5 fL (8.0-11.0); Monocytes % 5.9; Neutrophils % 69.8; Platelet Count 284 10^3/uL (130-400); RBC 4.26 10^6/uL (3.93-5.22); RDW 13.9 % (11.7-14.6); RDW-SD 50.5 fL
== END 2021-08-01 13:45 | disposition home or self-care (01) ==
LOC: LBN 13:44
PROVIDERS: PCP Family Medicine; Visit Provider Nurse Practitioner Gerontology
DX: L03.115 Cellulitis of right lower limb (principal)
CPT/HCPCS: 85025

== ENCOUNTER 2021-09-06 18:11 | Outpatient (REF) | payer MEDICARE, MEDICAID, SELFPAY ==
[2021-09-06 17:28] LABS: Abs Immature Grans 0.08 10^3/uL (0.0-0.06); Absolute Basophil Count 0.06 10^3/uL (0.0-0.2); Absolute Lymphocyte Count 1.89 10^3/uL (1.2-3.4); Basophils % 0.5; Eosinophils % 2.5; HCT 40.4 % (36.0-46.0); HGB 12.6 g/dL (11.2-15.7); Immature Grans % 0.7; Lymphocytes % 15.7; MCH 31.7 pg (27.0-33.0); MCHC 31.2 % (32.0-36.0); MCV 102 fL (80-95); MPV 9.7 fL (8.0-11.0); Neutrophils % 75.6; Platelet Count 317 10^3/uL (130-400); RBC 3.97 10^6/uL (3.93-5.22); RDW 14.3 % (11.7-14.6); RDW-SD 53.7 fL; WBC 12.03 10^3/uL (4.4-10.8)
[2021-09-06 17:36] LABS: Absolute Neutrophil Count 9.09 10^3/uL (1.2-6.7)
[2021-09-06 17:49] LABS: ALT 25 U/L (14-59); AST 19 U/L (15-37); Albumin 3.3 g/dL (3.4-5.0); Alkaline Phosphatase 73 U/L (46-116); BUN 14 mg/dL (7-18); Bilirubin, Total 0.2 mg/dL (0.2-1.0); CREATININE 0.9 mg/dL (0.55-1.02); Calcium 9.3 mg/dL (8.5-10.1); Chloride 96 mmol/L (98-107); Glucose 125 mg/dL (74-106); Potassium 4.1 mmol/L (3.5-5.1); Sodium 140 mmol/L (136-145); Total Protein 6.9 g/dL (6.4-8.2)
== END 2021-09-06 18:12 | disposition home or self-care (01) ==
LOC: LBN 18:11
PROVIDERS: PCP Family Medicine; Visit Provider Nurse Practitioner Gerontology
DX: E11.65 Type 2 diabetes mellitus with hyperglycemia (principal); R22.43 Localized swelling, mass and lump, lower limb, bilateral; I48.91 Unspecified atrial fibrillation; I87.302 Chronic venous hypertension (idiopathic) without complications of left lower extremity; J44.1 Chronic obstructive pulmonary disease with (acute) exacerbation
CPT/HCPCS: 80053; 85025

== ENCOUNTER 2021-09-13 17:10 | Outpatient (REF) | payer MEDICARE, MEDICAID, SELFPAY ==
[2021-09-13 18:22] LABS: Abs Immature Grans 0.06 10^3/uL (0.0-0.06); Absolute Basophil Count 0.08 10^3/uL (0.0-0.2); Absolute Lymphocyte Count 2.33 10^3/uL (1.2-3.4); Absolute Monocyte Count 0.67 10^3/uL (0.1-0.8); Absolute Neutrophil Count 7.72 10^3/uL (1.2-6.7); Basophils % 0.7; Eosinophils % 2.7; HCT 39.6 % (36.0-46.0); HGB 12.3 g/dL (11.2-15.7); Immature Grans % 0.5; Lymphocytes % 20.9; MCH 31.7 pg (27.0-33.0); MCHC 31.1 % (32.0-36.0); MCV 102 fL (80-95); MPV 9.5 fL (8.0-11.0); Neutrophils % 69.2; Platelet Count 306 10^3/uL (130-400); RBC 3.88 10^6/uL (3.93-5.22); RDW-SD 55.9 fL; WBC 11.16 10^3/uL (4.4-10.8)
[2021-09-13 18:30] LABS: Anion Gap 5.2 mmol/L (3-11); BUN 16 mg/dL (7-18); CO2 37.8 mmol/L (21.0-32.0); CREATININE 0.7 mg/dL (0.55-1.02); Calcium 9.2 mg/dL (8.5-10.1); Chloride 96 mmol/L (98-107); Glucose 127 mg/dL (74-106); Potassium 3.8 mmol/L (3.5-5.1); Sodium 139 mmol/L (136-145)
[2021-09-14 12:05] LABS: C-Reactive Protein 1.11 mg/dL (0.0-0.3)
== END 2021-09-13 17:11 | disposition home or self-care (01) ==
LOC: LBN 17:10
PROVIDERS: PCP Family Medicine; Visit Provider Nurse Practitioner Gerontology
DX: I10 Essential (primary) hypertension (principal); J44.1 Chronic obstructive pulmonary disease with (acute) exacerbation; J18.9 Pneumonia, unspecified organism; J96.22 Acute and chronic respiratory failure with hypercapnia; I48.91 Unspecified atrial fibrillation; I50.813 Acute on chronic right heart failure
CPT/HCPCS: 80048; 80151; 85025; 86140

== ENCOUNTER 2021-09-21 15:11 | Outpatient (REF) | payer MEDICARE, MEDICAID, SELFPAY ==
[2021-09-21 16:18] LABS: Abs Immature Grans 0.08 10^3/uL (0.0-0.06); Absolute Basophil Count 0.06 10^3/uL (0.0-0.2); Absolute Monocyte Count 0.62 10^3/uL (0.1-0.8); Absolute Neutrophil Count 7.96 10^3/uL (1.2-6.7); Basophils % 0.5; Eosinophils % 3.8; HCT 42.1 % (36.0-46.0); Immature Grans % 0.7; Lymphocytes % 20.1; MCH 31.4 pg (27.0-33.0); MCHC 30.9 % (32.0-36.0); MCV 102 fL (80-95); Monocytes % 5.4; Neutrophils % 69.5; Platelet Count 336 10^3/uL (130-400); RBC 4.14 10^6/uL (3.93-5.22); RDW 14.7 % (11.7-14.6); RDW-SD 55.6 fL; WBC 11.45 10^3/uL (4.4-10.8)
[2021-09-21 16:20] LABS: Absolute Eosinophil Count 0.44 10^3/uL (0.0-0.7)
[2021-09-21 16:34] LABS: Anion Gap 7.4 mmol/L (3-11); BUN 19 mg/dL (7-18); CO2 41.6 mmol/L (21.0-32.0); CREATININE 0.9 mg/dL (0.55-1.02); Calcium 9.2 mg/dL (8.5-10.1); Chloride 95 mmol/L (98-107); Glucose 123 mg/dL (74-106); Potassium 3.8 mmol/L (3.5-5.1); Sodium 144 mmol/L (136-145)
== END 2021-09-21 15:12 | disposition home or self-care (01) ==
LOC: NCHCN 15:11
PROVIDERS: PCP Family Medicine; Visit Provider Nurse Practitioner Gerontology
DX: I10 Essential (primary) hypertension (principal); I50.813 Acute on chronic right heart failure; E11.65 Type 2 diabetes mellitus with hyperglycemia; E66.2 Morbid (severe) obesity with alveolar hypoventilation; J44.1 Chronic obstructive pulmonary disease with (acute) exacerbation; Z79.899 Other long term (current) drug therapy
CPT/HCPCS: 80048; 85025

== ENCOUNTER 2021-09-26 14:01 | Outpatient (REF) | payer MEDICARE, MEDICAID, SELFPAY ==
[2021-09-26 16:40] LABS: Anion Gap 7.2 mmol/L (3-11); BUN 17 mg/dL (7-18); CO2 38.8 mmol/L (21.0-32.0); CREATININE 0.9 mg/dL (0.55-1.02); Calcium 9.1 mg/dL (8.5-10.1); Chloride 95 mmol/L (98-107); Glucose 199 mg/dL (74-106); Potassium 3.7 mmol/L (3.5-5.1); Sodium 141 mmol/L (136-145)
[2021-09-26 16:49] LABS: Abs Immature Grans 0.09 10^3/uL (0.0-0.06); Absolute Basophil Count 0.07 10^3/uL (0.0-0.2); Absolute Eosinophil Count 0.44 10^3/uL (0.0-0.7); Absolute Lymphocyte Count 2.03 10^3/uL (1.2-3.4); Absolute Monocyte Count 0.68 10^3/uL (0.1-0.8); Absolute Neutrophil Count 8.01 10^3/uL (1.2-6.7); Basophils % 0.6; Eosinophils % 3.9; HCT 42.8 % (36.0-46.0); Immature Grans % 0.8; Lymphocytes % 17.9; MCH 31.4 pg (27.0-33.0); MCHC 30.4 % (32.0-36.0); MCV 103 fL (80-95); MPV 9.7 fL (8.0-11.0); Neutrophils % 70.8; Platelet Count 342 10^3/uL (130-400); RBC 4.14 10^6/uL (3.93-5.22); RDW 14.7 % (11.7-14.6); RDW-SD 55.8 fL; WBC 11.32 10^3/uL (4.4-10.8)
== END 2021-09-26 14:02 | disposition home or self-care (01) ==
LOC: LBN 14:01
PROVIDERS: PCP Family Medicine; Visit Provider Nurse Practitioner Gerontology
DX: J96.91 Respiratory failure, unspecified with hypoxia (principal)
CPT/HCPCS: 80048; 85025

== ENCOUNTER 2021-10-31 12:24 | Emergency (ER) | payer MEDICARE, MEDICAID, SELFPAY ==
[2021-10-31] VITALS (8 sets, daily range): BP systolic 115–121; BP diastolic 46–48; PULSE 64–78; RESP 16–18; TEMP 36.8; O2SAT 95–96
[2021-10-31 13:02] LABS: Abs Immature Grans 0.14 10^3/uL (0.0-0.06); Absolute Basophil Count 0.05 10^3/uL (0.0-0.2); Absolute Monocyte Count 0.62 10^3/uL (0.1-0.8); Basophils % 0.3; Eosinophils % 0.4; HCT 40.2 % (36.0-46.0); HGB 12.4 g/dL (11.2-15.7); Immature Grans % 0.9; Lymphocytes % 10.1; MCH 31.6 pg (27.0-33.0); MCHC 30.8 % (32.0-36.0); MCV 102 fL (80-95); MPV 8.7 fL (8.0-11.0); Monocytes % 3.9; Neutrophils % 84.4; Platelet Count 288 10^3/uL (130-400); RBC 3.93 10^6/uL (3.93-5.22); RDW 14.6 % (11.7-14.6); RDW-SD 55.4 fL; WBC 15.77 10^3/uL (4.4-10.8)
[2021-10-31 13:03] LABS: Absolute Eosinophil Count 0.06 10^3/uL (0.0-0.7); Absolute Lymphocyte Count 1.59 10^3/uL (1.2-3.4); Absolute Neutrophil Count 13.31 10^3/uL (1.2-6.7)
[2021-10-31 13:17] LABS: ALT 25 U/L (14-59); AST 12 U/L (15-37); Albumin 2.9 g/dL (3.4-5.0); Alkaline Phosphatase 60 U/L (46-116); Anion Gap 5.4 mmol/L (3-11); BUN 19 mg/dL (7-18); Bilirubin, Total 0.2 mg/dL (0.2-1.0); CO2 41.6 mmol/L (21.0-32.0); Calcium 8.7 mg/dL (8.5-10.1); Chloride 95 mmol/L (98-107); Estimated GFR 54.35 (mL/min/1.73m2); Glucose 208 mg/dL (74-106); Potassium 3.1 mmol/L (3.5-5.1); Sodium 142 mmol/L (136-145); Total Protein 6.6 g/dL (6.4-8.2)
--- NOTE | 2021-10-31 13:41 | ED.GENADUL_ITS ---
Discharge Plan Disposition Patient Disposition: LEVEL III [facility] Condition: Improving Discharge Details Clinical Impression: Cellulitis of both lower extremities Primary Care Provider: Evi Cloud ED Provider: Bruno Barth Home Meds and New Rx's Prescriptions: New sulfamethoxazole-trimethoprim 400-80 mg tablet 1 tab PO BID 7 Days Qty: 14 0RF cephalexin 500 mg capsule 500 mg PO TID 7 Days Qty: 21 0RF Continued pantoprazole 20 mg tablet,delayed release (DR/EC) 20 mg PO BID metformin 500 mg tablet 750 mg PO TID Stiolto Respimat 2.5-2.5 mcg/actuation mist 2 puff inhalation DAILY Qty: 4 12RF (DME) BiPap See Rx Instructions .Route .MEDSUPPLY Qty: 1 0RF Rx Instructions: See internal note diltiazem HCl [DILT-XR] 240 mg capsule,ext.rel 24h degradable 240 mg PO QAM albuterol sulfate 90 mcg/actuation HFA aerosol inhaler 2 inh INHALATION .Q4H,PRN PRN acetaminophen [Tylenol] 325 mg Tablet 650 mg PO Q4H PRN epinephrine 0.3 mg/0.3 mL Auto-Injector 0.3 mg IM PRN PRN amiodarone 200 mg tablet 200 mg PO DAILY furosemide [Lasix] 20 mg tablet 80 mg PO BID Rx Instructions: taken at 1400 tolterodine 4 mg capsule,extended release 24hr 4 mg PO DAILY AM potassium chloride 10 mEq tablet extended release 10 meq PO DAILY AM ascorbic acid (vitamin C) [Vitamin C] 500 mg Tablet 500 mg PO BID gabapentin 300 mg Capsule 300 mg PO HS insulin glargine [Lantus Solostar U-100 Insulin] 100 unit/mL (3 mL) Insulin Pen 20 unit SUBCUT HS Qty: 0 0RF levothyroxine 100 mcg Tablet 100 mcg PO HS polyethylene glycol 3350 [Miralax] 17 gram/dose Powder 17 g PO DAILY insulin aspart U-100 100 unit/mL (3 mL) Insulin Pen 1 sliding scale dose SUBCUT USEASDIRECTD Rx Instructions: <110=0 units, 111-150=6 units, 151-200=10 units,201-250=12units,251-300=15 units, 301-150=18units, >350=20units and call physician Eryn 1.5 mg/0.5 mL pen injector 1.5 mg SUBCUT QWEEK aspirin 81 mg Tablet,Chewable 81 mg PO DAILY citalopram 20 mg Tablet 20 mg PO DAILY vitamin B complex Tablet 1 tab PO DAILY ergocalciferol (vitamin D2) 1,250 mcg (50,000 unit) Capsule 1,250 mcg PO QWEEK Rx Instructions: last dose to be 05/30/21 buspirone 5 mg Tablet 5 mg PO TID Deep Sea Nasal 0.65 % Aerosol,[place] 4 spray NS QID PRN PRNQty: 44 0RF apixaban 2.5 mg tablet 2.5 mg PO BID Qty: 20 0RF ferrous sulfate 325 mg (65 mg iron) Tablet 325 mg PO BID Discharge Instructions Instructions: Cellulitis (ED) Additional Instructions: You had an ultrasound of the left leg that did not show evidence of DVT. We will place you on 1 week of antibiotics with dual therapy. You received a dose of ceftriaxone today and the Keflex should start tomorrow. May begin Bactrim tonight. I have ordered a wound care consult for you at the [facility] and also asked that you have your renal function rechecked in 5 to 7 days time. May remove Adalberto bandages at bedtime. May let air dry Medical Decision Making 71-year-old female who ambulates with a walker. She has chronic venous stasis of the lower extremity. She has had 2+ weeks of slow and progressive swelling of the left lower extremity with overriding chronic venous stasis changes to both legs and erythema that is developed over approximately 1 week's time. She has not been on antibiotics. She denies chest pain or new shortness of breath, remains on her routine 2 L oxygen at home. Patient is afebrile and normotensive. Her legs show evidence of cellulitis and chronic venous stasis changes. The left is significantly more edematous and must rule out underlying DVT. Patient referred for laboratories and lower extremity ultrasound. Patient's white blood cell count is elevated at 15 versus a baseline of approximately 11-12. Her potassium is slightly low at 3.1 and is supplemented in the ER. USN: Patient does have a history of MRSA. I will place her on dual therapy. She is elderly but with normal renal function. We will utilize cephalexin and single strength Bactrim. Will recommend recheck renal function in 5 to 7 days time. HPI General Mode of arrival: ambulatory . Date/Time Provider Initiated Documentation: 10/31/21 13:30 . Limitations to Documentation: no limitations . Information obtained by: patient . History of Present Illness 71 year old F presents to the emergency department with the chief complaint of left >right leg swelling and redness, described as moderate and similar to prior episodes, Quality is described as constant, and is localized to the left, right and lower extremity. Patient reports no radiation. Patient started experiencing this day(s) and it has been constant. No relieving factors improve symp true(s), No exacerbating factors reported . Patient notes other (Chronic shortness of breath that is unchanged and on home oxygen); denies chest pain and cough. Patient did receive the following treatments prior to arrival, none Related Data Home Medications Medication Instructions Recorded Confirmed acetaminophen 325 mg tablet 650 mg PO Q4H PRN 01/14/20 10/31/21 (Tylenol) albuterol sulfate 90 mcg/actuation 2 inh inhalation .Q4H,PRN PRN 01/14/20 10/31/21 aerosol inhaler diltiazem HCl 240 mg 240 mg PO QAM 01/14/20 10/31/21 capsule,extended release 24 hr, controlled (DILT-XR) epinephrine 0.3 mg/0.3 mL 0.3 mg IM PRN PRN 01/14/20 10/31/21 injection, auto-injector ferrous sulfate 325 mg (65 mg 325 mg PO BID 03/07/20 10/31/21 iron) tablet amiodarone 200 mg tablet 200 mg PO DAILY 12/02/20 10/31/21 furosemide 20 mg tablet (Lasix) 80 mg PO BID 12/02/20 10/31/21 pantoprazole 20 mg tablet,delayed 20 mg PO BID 12/02/20 10/31/21 release potassium chloride 10 mEq 10 meq PO DAILY AM 12/12/20 10/31/21 tablet,extended release tolterodine 4 mg capsule,extended 4 mg PO DAILY AM 12/12/20 10/31/21 release 24 hr ascorbic acid (vitamin C) 500 mg 500 mg PO BID 12/14/20 10/31/21 tablet (Vitamin C) gabapentin 300 mg capsule 300 mg PO HS 12/14/20 10/31/21 insulin glargine 100 unit/mL (3 20 unit (0.2 mL) subcut HS #0 mL 12/16/20 10/31/21 mL) subcutaneous pen (Lantus Solostar U-100 Insulin) insulin aspart U-100 100 unit/mL 1 sliding scale dose subcut 01/02/21 10/31/21 (3 mL) subcutaneous pen USEASDIRECTD levothyroxine 100 mcg tablet 100 mcg PO HS 01/02/21 10/31/21 polyethylene glycol 3350 17 17 g PO DAILY 01/02/21 10/31/21 gram/dose oral powder (Miralax) dulaglutide 1.5 mg/0.5 mL 1.5 mg subcut QWEEK 01/06/21 10/31/21 subcutaneous pen injector (Trulicity) tiotropium 2.5 mcg-olodaterol 2.5 2 puff inhalation DAILY #4 grams 02/21/21 mcg/actuation mist for inhalation (Stiolto Respimat) aspirin 81 mg chewable tablet 81 mg PO DAILY 04/16/21 10/31/21 buspirone 5 mg tablet 5 mg PO TID 04/16/21 10/31/21 citalopram 20 mg tablet 20 mg PO DAILY 04/16/21 10/31/21 ergocalciferol (vitamin D2) 1,250 1,250 mcg PO QWEEK 04/16/21 10/31/21 mcg (50,000 unit) capsule vitamin B complex 1 tab PO DAILY 04/16/21 10/31/21 BiPap #1 ea 04/18/21 09/14/21 apixaban 2.5 mg tablet 2.5 mg PO BID #20 tabs 04/18/21 10/31/21 sodium chloride 0.65 % nasal spray 4 spray NS QID PRN PRN #44 mL 04/18/21 10/31/21 aerosol (Deep Sea Nasal) metformin 500 mg tablet 750 mg PO TID 09/14/21 10/31/21 cephalexin 500 mg capsule 500 mg PO TID 7 days #21 caps 10/31/21 sulfamethoxazole 400 1 tab PO BID 7 days #14 tabs 10/31/21 mg-trimethoprim 80 mg tablet Previous Rx's Medication Instructions Recorded insulin glargine 100 unit/mL (3 20 unit (0.2 mL) subcut HS #0 mL 12/16/20 mL) subcutaneous pen (Lantus Solostar U-100 Insulin) tiotropium 2.5 mcg-olodaterol 2.5 2 puff inhalation DAILY #4 grams 02/21/21 mcg/actuation mist for inhalation (Stiolto Respimat) BiPap #1 ea 04/18/21 apixaban 2.5 mg tablet 2.5 mg PO BID #20 tabs 04/18/21 sodium chloride 0.65 % nasal spray 4 spray NS QID PRN PRN #44 mL 04/18/21 aerosol (Deep Sea Nasal) cephalexin 500 mg capsule 500 mg PO TID 7 days #21 caps 10/31/21 sulfamethoxazole 400 1 tab PO BID 7 days #14 tabs 10/31/21 mg-trimethoprim 80 mg tablet Allergies Allergy/AdvReac Type Severity Reaction Status Date / Time bee venom protein (honey bee) Allergy Unknown Verified 10/31/21 12:35 Penicillins Allergy Unknown Verified 10/31/21 12:35 strawberry Allergy Unknown Verified 10/31/21 12:35 General Stated Complaint: Cellulitis KENDRICK: 3 Review of Systems Narrative: 7 systems reviewed and otherwise negative PFSH All Active Problems (Updated 10/31/21 @ 15:31 by Bruno Barth MD) Cellulitis of both lower extremities (Acute) Onychomycosis (Acute) Anterior epistaxis (Acute) Pulmonary nodule (Acute) Morbid obesity (Acute) Vitamin D deficiency (Acute) MRSA (methicillin resistant staph aureus) culture positive (Acute) Hypoxia (Acute) Hypothyroidism (Chronic) Bilateral cellulitis of lower leg (Acute) Localized swelling of both lower legs (Acute) On amiodarone therapy (Acute) Palliative care patient (Acute) Cellulitis of left lower leg (Acute) Plaque psoriasis (Acute) GERD (gastroesophageal reflux disease) (Chronic) Hypercholesterolemia (Acute) Obesity (Chronic) CHF (congestive heart failure) (Chronic) Family history unobtainable due to patient's condition (Acute) Medical History Acute and chronic respiratory failure with hypercapnia Acute exacerbation of chronic obstructive pulmonary disease Acute on chronic respiratory failure with hypoxia and hypercapnia Acute respiratory distress Acute respiratory distress Altered mental status Arthritis Atrial fibrillation Cellulitis bilateral lower extremities Cellulitis CHF (congestive heart failure) Chronic atrial fibrillation, unspecified Chronic respiratory failure with hypoxia COPD (chronic obstructive pulmonary disease) Diabetes mellitus HCAP (healthcare-associated pneumonia) HCAP (healthcare-associated pneumonia) HCAP (healthcare-associated pneumonia) Hypercarbia Methicillin susceptible Staphylococcus aureus infection as the cause of diseases classified elsewhere Mood disorder Morbid (severe) obesity with alveolar hypoventilation Muscle weakness (generalized) Obesity Pneumonia Sepsis Sepsis Streptococcal bacteremia Toxic metabolic encephalopathy Type 2 diabetes mellitus Type 2 diabetes mellitus with hyperglycemia Surgical History H/O hand surgery right index finger removal of tendon sheath ganglion H/O: hysterectomy History of carpal tunnel surgery of right wrist History of excision of lesion abdominal cyst removed S/P appendectomy Family History Father Heart disease 2 ID, at 62 Mother Heart disease Social History Smoking/Tobacco Use Status: Former Tobacco Use Smoking risk assessment performed?: Yes Alcohol Intake: never Drug use: Never Substance use type: does not use Do you feel safe at home: Yes Do you feel safe in your relationship?: Yes Exam Narrative Exam Narrative: GEN: awake, alert, oriented 3. Pleasant, well groomed, interactive. HEAD: Normocephalic, atraumatic ENT: Mucous membranes moist, oropharynx unremarkable, External ear exam unremarkable EYES: PERRL, EOMI NECK: Full ROM, no MARLY, no menigismus CHEST/RESP: Nontender, clear to auscultation bilateral, no wheeze/rhonchi/rales CARDIOVASCULAR: Distant, no rub merly. 2+ Rad pulse bilateral ABDOMEN: Soft, nontender, no mass. +Bowel sounds EXT: Full ROM, left leg is edematous compared to right. There are chronic venous stasis changes present bilaterally with overlying erythema, mild warmth to the touch. There is some crusting of the chronic venous stasis anteriorly on the left tibia Neuro: Grossly normal neurologic exam, conversant, interactive. Psych: Speech fluent, thoughts congruent, affect normal Course Vital Signs Vital signs: Vital Signs Temperature 36.8 C 10/31/21 12:27 Pulse 78 10/31/21 12:27 Respiratory Rate 18 10/31/21 12:27 Blood Pressure 121/48 L 10/31/21 12:27 Pulse Oximetry 95 10/31/21 12:27 Temperature 36.8 C 10/31/21 12:27 Temperature Source Oral 10/31/21 12:27 Pulse 78 10/31/21 12:27 Respiratory Rate 18 10/31/21 12:27 Respiratory Effort Non-Labored 10/31/21 12:37 Blood Pressure 121/48 L 10/31/21 12:27 Pulse Oximetry 95 10/31/21 12:27 Oxygen Delivery Method Nasal Cannula 10/31/21 12:27 Oxygen Flow Rate 2 10/31/21 12:27 Pain Level 8 10/31/21 12:27 Comment 10/31/21 12:27 Lab/Test Results Lab/Test Results: Laboratory Tests Range/Units 10/31/21 10/31/21 12:50 12:50 WBC (4.4-10.8) 10^3/uL 15.77 H RBC (3.93-5.22) 10^6/uL 3.93 Hgb (11.2-15.7) g/dL 12.4 Hct (36.0-46.0) % 40.2 MCV (80-95) fL 102 H MCH (27.0-33.0) pg 31.6 MCHC (32.0-36.0) % 30.8 L RDW (11.7-14.6) % 14.6 Plt Count (130-400) 10^3/uL 288 MPV (8.0-11.0) fL 8.7 Immature Gran % 0.9 Neutrophils % 84.4 Lymphocytes % 10.1 Monocytes % 3.9 Eosinophils % 0.4 Basophils % 0.3 Nucleated RBC % (0.0-0.3) % 0.0 Absolute Neutrophils (1.2-6.7) 10^3/uL 13.31 H Absolute Lymphocytes (1.2-3.4) 10^3/uL 1.59 Absolute Monocytes (0.1-0.8) 10^3/uL 0.62 Absolute Eosinophils (0.0-0.7) 10^3/uL 0.06 Absolute Basophils (0.0-0.2) 10^3/uL 0.05 Sodium (136-145) mmol/L 142 Potassium (3.5-5.1) mmol/L 3.1 L Chloride (98-107) mmol/L 95 L Carbon Dioxide (21.0-32.0) mmol/L 41.6 H Anion Gap (3-11) mmol/L 5.4 BUN (7-18) mg/dL 19 H Creatinine (0.55-1.02) mg/dL 1.0 Estimated GFR/1.73 m2 (mL/min/1.73m2) 54.35 Glucose (74-106) mg/dL 208 H Calcium (8.5-10.1) mg/dL 8.7 Total Bilirubin (0.2-1.0) mg/dL 0.2 AST (15-37) U/L 12 L ALT (14-59) U/L 25 Alkaline Phosphatase (46-116) U/L 60 Total Protein (6.4-8.2) g/dL 6.6 Albumin (3.4-5.0) g/dL 2.9 L
[2021-10-31] MEDS: Potassium Chloride Liquid 20 MEQ PKT PO (13:46)
[2021-10-31] MEDS: cefTRIAXone 1 GM/50 ML BAG IVPB (13:46)
--- NOTE | 2021-10-31 14:30 | DI.US_ITS ---
Exam(s) US LOWER EXTREMITY VENOUS LT EXAM: US LOWER EXTREMITY VENOUS LT CLINICAL HISTORY: Swelling TECHNIQUE: Left lower extremity venous ultrasound performed using grayscale, color-flow, and spectra l Doppler analysis. COMPARISON: US US LOWER EXTREMITY VENOUS LT from 04/15/2021 FINDINGS: The left common femoral, femoral and popliteal veins demonstrate normal compressibility, augmentation , and color Doppler. The posterior tibial veins are patent. The saphenofemoral junction is unremarka ble. There is no evidence of a Morrissey cyst. There is edema in the soft tissues of the left lower ext remity. IMPRESSION: 1. No evidence of a left lower extremity DVT. 2. Results of this exam have been verbally communicated with provider. DATA REPOSITORY:
--- NOTE | 2021-10-31 16:04 | NUR.NOTE ---
Nursing Note: Spoke with Nikky from the [facility] and she stated they are unable to come and get pt. She said to call [facility] or [facility]avo Macias and they would have to bill the [facility]. Called [facility] and they require an authorization prior from [facility] or [facility] to transportation. I called [facility], spoke with Karlie, who stated that [facility] would do the authorization. It was faxed and [facility] called stating they would be here at 1710.
== END 2021-10-31 16:22 | disposition designated cancer center or children's hospital (05) ==
PROVIDERS: Emergency Provider Emergency Medicine; PCP Family Medicine
DX: L03.115 Cellulitis of right lower limb (principal); L03.116 Cellulitis of left lower limb; I87.8 Other specified disorders of veins; E87.6 Hypokalemia; I50.9 Heart failure, unspecified; E11.9 Type 2 diabetes mellitus without complications; J44.9 Chronic obstructive pulmonary disease, unspecified; I48.20 Chronic atrial fibrillation, unspecified; Z87.891 Personal history of nicotine dependence; Z79.4 Long term (current) use of insulin; Z79.82 Long term (current) use of aspirin; Z79.84 Long term (current) use of oral hypoglycemic drugs
CPT/HCPCS: 36415; 80053; 96365; 99284; 85025; 93971; J0696

== ENCOUNTER 2021-11-04 19:03 | Outpatient (REF) | payer MEDICARE, MEDICAID, SELFPAY ==
[2021-11-04 19:46] LABS: ALT 26 U/L (14-59); AST 15 U/L (15-37); Abs Immature Grans 0.12 10^3/uL (0.0-0.06); Absolute Basophil Count 0.07 10^3/uL (0.0-0.2); Absolute Eosinophil Count 0.25 10^3/uL (0.0-0.7); Albumin 3.3 g/dL (3.4-5.0); Alkaline Phosphatase 60 U/L (46-116); BUN 18 mg/dL (7-18); Basophils % 0.5; Bilirubin, Total 0.2 mg/dL (0.2-1.0); CREATININE 0.9 mg/dL (0.55-1.02); Calcium 9.5 mg/dL (8.5-10.1); Chloride 97 mmol/L (98-107); Eosinophils % 1.9; Glucose 93 mg/dL (74-106); HCT 43.4 % (36.0-46.0); HGB 13.2 g/dL (11.2-15.7); Immature Grans % 0.9; Lymphocytes % 22.7; MCH 31.4 pg (27.0-33.0); MCHC 30.4 % (32.0-36.0); MCV 103 fL (80-95); MPV 9.3 fL (8.0-11.0); Monocytes % 5.3; Neutrophils % 68.7; Platelet Count 335 10^3/uL (130-400); Potassium 3.9 mmol/L (3.5-5.1); RDW-SD 57.6 fL; Sodium 140 mmol/L (136-145); Total Protein 6.6 g/dL (6.4-8.2); WBC 13.11 10^3/uL (4.4-10.8)
[2021-11-04 19:50] LABS: Absolute Lymphocyte Count 2.98 10^3/uL (1.2-3.4); Absolute Monocyte Count 0.69 10^3/uL (0.1-0.8); Absolute Neutrophil Count 9.01 10^3/uL (1.2-6.7)
== END 2021-11-04 19:04 | disposition home or self-care (01) ==
LOC: LBN 19:03
PROVIDERS: PCP Family Medicine; Visit Provider Nurse Practitioner Gerontology
DX: E11.65 Type 2 diabetes mellitus with hyperglycemia (principal); I10 Essential (primary) hypertension; I50.813 Acute on chronic right heart failure; J44.1 Chronic obstructive pulmonary disease with (acute) exacerbation
CPT/HCPCS: 80053; 85025

== ENCOUNTER 2021-11-09 14:06 | Outpatient (REF) | payer MEDICARE, MEDICAID, SELFPAY ==
[2021-11-09 14:49] LABS: Abs Immature Grans 0.08 10^3/uL (0.0-0.06); Absolute Basophil Count 0.07 10^3/uL (0.0-0.2); Absolute Eosinophil Count 0.25 10^3/uL (0.0-0.7); Absolute Lymphocyte Count 2.52 10^3/uL (1.2-3.4); Basophils % 0.6; Eosinophils % 2.2; HCT 39.4 % (36.0-46.0); HGB 12.4 g/dL (11.2-15.7); Immature Grans % 0.7; Lymphocytes % 22.3; MCHC 31.5 % (32.0-36.0); MCV 102 fL (80-95); MPV 9.3 fL (8.0-11.0); Monocytes % 5.3; Neutrophils % 68.9; Platelet Count 275 10^3/uL (130-400); RBC 3.88 10^6/uL (3.93-5.22); RDW 14.6 % (11.7-14.6); WBC 11.28 10^3/uL (4.4-10.8)
[2021-11-09 14:52] LABS: Absolute Neutrophil Count 7.77 10^3/uL (1.2-6.7)
[2021-11-09 14:57] LABS: Anion Gap 5.5 mmol/L (3-11); BUN 23 mg/dL (7-18); CO2 37.5 mmol/L (21.0-32.0); Calcium 8.7 mg/dL (8.5-10.1); Chloride 99 mmol/L (98-107); Estimated GFR 59.49 (mL/min/1.73m2); Glucose 195 mg/dL (74-106); Potassium 3.7 mmol/L (3.5-5.1); Sodium 142 mmol/L (136-145)
== END 2021-11-09 14:07 | disposition home or self-care (01) ==
LOC: LBN 14:06
PROVIDERS: PCP Family Medicine; Visit Provider Nurse Practitioner Gerontology
DX: L03.116 Cellulitis of left lower limb (principal)
CPT/HCPCS: 80048; 85025

== ENCOUNTER 2021-11-15 21:30 | Outpatient (REF) | payer MEDICARE, MEDICAID, SELFPAY ==
[2021-11-15 21:43] LABS: Abs Immature Grans 0.16 10^3/uL (0.0-0.06); Absolute Basophil Count 0.05 10^3/uL (0.0-0.2); Absolute Eosinophil Count 0.12 10^3/uL (0.0-0.7); Absolute Lymphocyte Count 1.56 10^3/uL (1.2-3.4); Absolute Monocyte Count 0.64 10^3/uL (0.1-0.8); Absolute Neutrophil Count 13.93 10^3/uL (1.2-6.7); Basophils % 0.3; Eosinophils % 0.7; HCT 41.7 % (36.0-46.0); HGB 13.1 g/dL (11.2-15.7); Lymphocytes % 9.5; MCH 31.8 pg (27.0-33.0); MCHC 31.4 % (32.0-36.0); MCV 101 fL (80-95); MPV 9.2 fL (8.0-11.0); Monocytes % 3.9; Neutrophils % 84.6; Platelet Count 325 10^3/uL (130-400); RBC 4.12 10^6/uL (3.93-5.22); RDW 14.9 % (11.7-14.6); RDW-SD 55.6 fL; WBC 16.46 10^3/uL (4.4-10.8)
[2021-11-15 22:00] LABS: ALT 35 U/L (14-59); AST 17 U/L (15-37); Albumin 3.1 g/dL (3.4-5.0); Alkaline Phosphatase 65 U/L (46-116); BUN 25 mg/dL (7-18); Bilirubin, Total 0.1 mg/dL (0.2-1.0); CREATININE 0.8 mg/dL (0.55-1.02); Calcium 9.2 mg/dL (8.5-10.1); Chloride 97 mmol/L (98-107); Estimated GFR 77.75 (mL/min/1.73m2); Glucose 148 mg/dL (74-106); Potassium 3.5 mmol/L (3.5-5.1); Sodium 141 mmol/L (136-145); Total Protein 6.3 g/dL (6.4-8.2)
== END 2021-11-15 21:31 | disposition home or self-care (01) ==
LOC: LBN 21:30
PROVIDERS: PCP Family Medicine; Visit Provider Nurse Practitioner Gerontology
DX: I10 Essential (primary) hypertension (principal); I50.813 Acute on chronic right heart failure; E11.65 Type 2 diabetes mellitus with hyperglycemia; J44.1 Chronic obstructive pulmonary disease with (acute) exacerbation
CPT/HCPCS: 80053; 85025

== ENCOUNTER 2021-11-18 14:41 | Outpatient (REF) | payer MEDICARE, MEDICAID, SELFPAY ==
[2021-11-18 19:10] LABS: Abs Immature Grans 0.14 10^3/uL (0.0-0.06); Absolute Eosinophil Count 0.21 10^3/uL (0.0-0.7); Absolute Lymphocyte Count 2.17 10^3/uL (1.2-3.4); Absolute Monocyte Count 0.78 10^3/uL (0.1-0.8); Basophils % 0.4; Eosinophils % 1.3; HCT 39.6 % (36.0-46.0); HGB 12.5 g/dL (11.2-15.7); Immature Grans % 0.9; Lymphocytes % 13.3; MCH 32.1 pg (27.0-33.0); MCHC 31.6 % (32.0-36.0); MCV 102 fL (80-95); MPV 9.5 fL (8.0-11.0); Monocytes % 4.8; Neutrophils % 79.3; Platelet Count 303 10^3/uL (130-400); RBC 3.89 10^6/uL (3.93-5.22); RDW 15.2 % (11.7-14.6); RDW-SD 56.9 fL; WBC 16.28 10^3/uL (4.4-10.8)
[2021-11-18 19:18] LABS: Absolute Basophil Count 0.07 10^3/uL (0.0-0.2); Absolute Neutrophil Count 12.91 10^3/uL (1.2-6.7)
== END 2021-11-18 14:42 | disposition home or self-care (01) ==
LOC: LBN 14:41
PROVIDERS: PCP Family Medicine; Visit Provider Nurse Practitioner Gerontology
DX: I10 Essential (primary) hypertension (principal); E11.65 Type 2 diabetes mellitus with hyperglycemia; J44.1 Chronic obstructive pulmonary disease with (acute) exacerbation
CPT/HCPCS: 85025

== ENCOUNTER 2021-11-22 11:25 | Outpatient (REF) | payer MEDICARE, MEDICAID, SELFPAY ==
[2021-11-22 11:31] LABS: Abs Immature Grans 0.13 10^3/uL (0.0-0.06); Absolute Basophil Count 0.09 10^3/uL (0.0-0.2); Absolute Eosinophil Count 0.24 10^3/uL (0.0-0.7); Absolute Lymphocyte Count 1.73 10^3/uL (1.2-3.4); Absolute Monocyte Count 0.87 10^3/uL (0.1-0.8); Absolute Neutrophil Count 7.73 10^3/uL (1.2-6.7); Basophils % 0.8; Eosinophils % 2.2; HCT 39.5 % (36.0-46.0); HGB 12.3 g/dL (11.2-15.7); Immature Grans % 1.2; MCH 31.8 pg (27.0-33.0); MCHC 31.1 % (32.0-36.0); MCV 102 fL (80-95); MPV 9.1 fL (8.0-11.0); Monocytes % 8.1; Neutrophils % 71.7; Platelet Count 308 10^3/uL (130-400); RBC 3.87 10^6/uL (3.93-5.22); RDW 14.4 % (11.7-14.6); RDW-SD 54.5 fL; WBC 10.79 10^3/uL (4.4-10.8)
[2021-11-22 11:47] LABS: ALT 26 U/L (14-59); AST 17 U/L (15-37); Albumin 2.9 g/dL (3.4-5.0); Alkaline Phosphatase 61 U/L (46-116); Anion Gap 3.4 mmol/L (3-11); BUN 13 mg/dL (7-18); Bilirubin, Total 0.2 mg/dL (0.2-1.0); CO2 40.6 mmol/L (21.0-32.0); CREATININE 0.9 mg/dL (0.55-1.02); Calcium 9.1 mg/dL (8.5-10.1); Chloride 96 mmol/L (98-107); Glucose 136 mg/dL (74-106); Potassium 3.1 mmol/L (3.5-5.1); Sodium 140 mmol/L (136-145); Total Protein 6.3 g/dL (6.4-8.2)
[2021-11-24 05:16] LABS: Vitamin D 25 Total 27.4 ng/mL (30-100)
== END 2021-11-22 11:26 | disposition home or self-care (01) ==
LOC: LBN 11:25
PROVIDERS: PCP Family Medicine; Visit Provider Nurse Practitioner Gerontology
DX: J96.91 Respiratory failure, unspecified with hypoxia (principal); E55.9 Vitamin D deficiency, unspecified
CPT/HCPCS: 80053; 82306; 85025

== ENCOUNTER 2021-11-28 10:11 | Outpatient (REF) | payer MEDICARE, MEDICAID, SELFPAY ==
[2021-11-28 10:56] LABS: Abs Immature Grans 0.09 10^3/uL (0.0-0.06); Absolute Basophil Count 0.08 10^3/uL (0.0-0.2); Absolute Eosinophil Count 0.28 10^3/uL (0.0-0.7); Absolute Lymphocyte Count 2.19 10^3/uL (1.2-3.4); Absolute Monocyte Count 0.86 10^3/uL (0.1-0.8); Basophils % 0.7; Eosinophils % 2.4; HGB 11.7 g/dL (11.2-15.7); Immature Grans % 0.8; Lymphocytes % 18.5; MCH 31.9 pg (27.0-33.0); MCHC 31.6 % (32.0-36.0); MCV 101 fL (80-95); MPV 9.4 fL (8.0-11.0); Monocytes % 7.3; Neutrophils % 70.3; Platelet Count 361 10^3/uL (130-400); RBC 3.67 10^6/uL (3.93-5.22); WBC 11.82 10^3/uL (4.4-10.8)
[2021-11-28 10:57] LABS: Absolute Neutrophil Count 8.31 10^3/uL (1.2-6.7)
[2021-11-28 11:05] LABS: ALT 23 U/L (14-59); AST 18 U/L (15-37); Albumin 2.8 g/dL (3.4-5.0); Alkaline Phosphatase 72 U/L (46-116); Anion Gap 2.7 mmol/L (3-11); BUN 12 mg/dL (7-18); Bilirubin, Total 0.2 mg/dL (0.2-1.0); CO2 44.3 mmol/L (21.0-32.0); Calcium 9.2 mg/dL (8.5-10.1); Chloride 91 mmol/L (98-107); Estimated GFR 59.49 (mL/min/1.73m2); Glucose 155 mg/dL (74-106); Potassium 3.3 mmol/L (3.5-5.1); Sodium 138 mmol/L (136-145); Total Protein 6.2 g/dL (6.4-8.2)
== END 2021-11-28 10:12 | disposition home or self-care (01) ==
LOC: LBN 10:11
PROVIDERS: PCP Family Medicine; Visit Provider Nurse Practitioner Gerontology
DX: E11.65 Type 2 diabetes mellitus with hyperglycemia (principal); R22.43 Localized swelling, mass and lump, lower limb, bilateral; I10 Essential (primary) hypertension; I48.91 Unspecified atrial fibrillation; E66.2 Morbid (severe) obesity with alveolar hypoventilation
CPT/HCPCS: 80053; 85025

== ENCOUNTER 2021-11-30 08:47 | Outpatient (REF) | payer MEDICARE, MEDICAID, SELFPAY ==
[2021-11-30 09:02] LABS: Abs Immature Grans 0.11 10^3/uL (0.0-0.06); Absolute Basophil Count 0.09 10^3/uL (0.0-0.2); Absolute Eosinophil Count 0.27 10^3/uL (0.0-0.7); Absolute Lymphocyte Count 1.86 10^3/uL (1.2-3.4); Absolute Monocyte Count 0.68 10^3/uL (0.1-0.8); Absolute Neutrophil Count 8.13 10^3/uL (1.2-6.7); Basophils % 0.8; Eosinophils % 2.4; HCT 38.2 % (36.0-46.0); HGB 11.5 g/dL (11.2-15.7); Lymphocytes % 16.7; MCH 31.6 pg (27.0-33.0); MCHC 30.1 % (32.0-36.0); MCV 105 fL (80-95); MPV 8.6 fL (8.0-11.0); Monocytes % 6.1; Nucleated RBC 0.2 % (0.0-0.3); Platelet Count 354 10^3/uL (130-400); RBC 3.64 10^6/uL (3.93-5.22); RDW 13.9 % (11.7-14.6); RDW-SD 53.1 fL; WBC 11.14 10^3/uL (4.4-10.8)
[2021-11-30 09:18] LABS: BUN 14 mg/dL (7-18); CREATININE 0.9 mg/dL (0.55-1.02); Calcium 8.7 mg/dL (8.5-10.1); Chloride 92 mmol/L (98-107); Glucose 101 mg/dL (74-106); NT-proBNP 326 pg/mL (<300); Potassium 3.2 mmol/L (3.5-5.1); Sodium 141 mmol/L (136-145)
[2021-11-30 09:20] LABS: CO2 > 45.0 mmol/L (21.0-32.0)
== END 2021-11-30 08:48 | disposition home or self-care (01) ==
LOC: LBN 08:47
PROVIDERS: PCP Family Medicine; Visit Provider Nurse Practitioner Gerontology
DX: J44.1 Chronic obstructive pulmonary disease with (acute) exacerbation (principal); I10 Essential (primary) hypertension; E66.01 Morbid (severe) obesity due to excess calories; I48.91 Unspecified atrial fibrillation; E11.65 Type 2 diabetes mellitus with hyperglycemia
CPT/HCPCS: 80048; 83880; 85025; 86140

== ENCOUNTER 2021-12-01 12:34 | Inpatient (IN) | payer MEDICARE, MEDICAID, SELFPAY ==
[2021-12-01] VITALS (47 sets, daily range): BP systolic 84–120; BP diastolic 45–77; PULSE 79–110; RESP 8–27; TEMP 37–37.2; O2SAT 92–95
--- NOTE | 2021-12-01 12:30 | DI.RAD_ITS ---
Exam(s) XR PORTABLE CHEST AP EXAM: XR PORTABLE CHEST AP CLINICAL HISTORY: Shortness of breath TECHNIQUE: 2D digital imaging was performed. COMPARISON: CR XR PORTABLE CHEST AP POST LINE from 03/09/2020 CR,XR XR PORTABLE CHEST AP from 12/12/2020 CR,XR XR CHEST 2V PA LATERAL from 01/02/2021 CR XR PORTABLE CHEST AP from 01/13/2021 CR XR PORTABLE CHEST AP from 04/15/[address] CHEST LUNG CANCER SCREEN from 06/02/2021 FINDINGS: Exam is somewhat limited by patient's body habitus and semi-upright projection. There is stable cardiomegaly and pulmonary vascular prominence. No focal infiltrate or effusion is s een. There is no gross evidence of overt pulmonary edema. IMPRESSION: No acute findings. DATA REPOSITORY: RADIATION DOSE DELIVERED:
--- NOTE | 2021-12-01 12:30 | RT.EKG_ITS ---
APPROVED REPORT Exam: Resting ECG Reason for Exam: sob Patient Location: E HR:95 bpm ECG Measurements Heart Rate 95 AXIS WA [id number] P [id number] QRSd 117 QRS -50 QT 389 T 55 QTc 490 Conclusion Atrial fibrillation Paired ventricular premature complexes. Left anterior fascicular block Anterior infarct, old...Q >40mS, abnormal ST-T, V2-V5
--- NOTE | 2021-12-01 12:34 | W.ED.GENAD ---
Discharge Plan Disposition Patient Disposition: [facility] INPATIENT Condition: Improving Discharge Details Clinical Impression: Hypoxia Primary Care Provider: Evi Cloud ED Provider: Bruno Barth Home Meds and New Rx's Prescriptions: No Action pantoprazole 20 mg tablet,delayed release (DR/EC) 20 mg PO BID metformin 500 mg tablet 750 mg PO TID Stiolto Respimat 2.5-2.5 mcg/actuation mist 2 puff inhalation DAILY Qty: 4 12RF (DME) BiPap See Rx Instructions .Route .MEDSUPPLY Qty: 1 0RF Rx Instructions: See internal note diltiazem HCl [DILT-XR] 240 mg capsule,ext.rel 24h degradable 240 mg PO QAM albuterol sulfate 90 mcg/actuation HFA aerosol inhaler 2 inh INHALATION .Q4H,PRN PRN acetaminophen [Tylenol] 325 mg Tablet 650 mg PO Q4H PRN epinephrine 0.3 mg/0.3 mL Auto-Injector 0.3 mg IM PRN PRN amiodarone 200 mg tablet 200 mg PO DAILY furosemide [Lasix] 20 mg tablet 80 mg PO BID Rx Instructions: taken at 1400 tolterodine 4 mg capsule,extended release 24hr 4 mg PO DAILY AM potassium chloride 10 mEq tablet extended release 10 meq PO DAILY AM ascorbic acid (vitamin C) [Vitamin C] 500 mg Tablet 500 mg PO BID gabapentin 300 mg Capsule 300 mg PO HS insulin glargine [Lantus Solostar U-100 Insulin] 100 unit/mL (3 mL) Insulin Pen 20 unit SUBCUT HS Qty: 0 0RF levothyroxine 100 mcg Tablet 100 mcg PO HS polyethylene glycol 3350 [Miralax] 17 gram/dose Powder 17 g PO DAILY insulin aspart U-100 100 unit/mL (3 mL) Insulin Pen 1 sliding scale dose SUBCUT USEASDIRECTD Rx Instructions: <110=0 units, 111-150=6 units, 151-200=10 units,201-250=12units,251-300=15 units, 301-150=18units, >350=20units and call physician Trulicity 1.5 mg/0.5 mL pen injector 1.5 mg SUBCUT QWEEK aspirin 81 mg Tablet,Chewable 81 mg PO DAILY citalopram 20 mg Tablet 20 mg PO DAILY vitamin B complex Tablet 1 tab PO DAILY ergocalciferol (vitamin D2) 1,250 mcg (50,000 unit) Capsule 1,250 mcg PO QWEEK Rx Instructions: last dose to be 05/30/21 buspirone 5 mg Tablet 5 mg PO TID Deep Sea Nasal 0.65 % Aerosol,[place] 4 spray NS QID PRN PRNQty: 44 0RF apixaban 2.5 mg tablet 2.5 mg PO BID Qty: 20 0RF ferrous sulfate 325 mg (65 mg iron) Tablet 325 mg PO BID tramadol 100 mg tablet 50 mg PO DAILY PRN Medical Decision Making This is a 71-year-old female who [facility] She was noted to shortness of breath and hypoxia overnight. She was placed on CPAP which is her routine. There were some persistent shortness of breath and need for oxygen which prompted call to EMS. Patient was found to require 1 to 2 L nasal cannula. She has known history of CO2 retention.. She arrives to ER oxygenating 93% on 1 to 2 L. She is able to speak in full sentences. She denies any chest pain. Differential diagnosis includes COPD exacerbation, CHF exacerbation. VBG reveals pH of 7.4, PCO2 of 73 with PO2 38. Remainder the patient's labs note a white count 9, hematocrit 36, platelets 342. Chemistries with sodium 139, potassium 3.3, chloride 92, BUN 13, creatinine 1.0. Magnesium slightly low at 1.6. Troponin negative, BNP elevated at 1094. I reviewed the patient's COLST form which she notes she wishes to be DNI with minimal additional interventions. Chest x-ray with note of cardiomegaly and pulmonary vascular prominence, no infiltrate seen, no overt pulmonary edema. Patient given an IV dose of her daily Lasix equivalent with brisk urine output. Patient observed and repeat troponin obtained and negative. 2 days work-up is consistent with mild COPD exacerbation and mild CHF exacerbation. She is improving with appropriate management. She is unable to wean to baseline oxygen, requiring 4 to 5 L. Discussed the case with the admitting hospitalist and patient to be admitted. HPI General Mode of arrival: EMS. Date/Time Provider Initiated Documentation: 12/01/21 12:46. Limitations to Documentation: no limitations. Information obtained by: patient and EMS. History of Present Illness 71 year old F presents to the emergency department with the chief complaint of Shortness of breath at [facility], described as moderate, and is localized to the chest. Patient reports no radiation. Patient started experiencing this hour(s) and it has been other (Improving). Medication improves symptom(s), Patient notes cough and shortness of breath; denies chest pain and fever/chills. Patient did receive the following treatments prior to arrival, other (CPAP at facility) Related Data Home Medications Medication Instructions Recorded Confirmed acetaminophen 325 mg tablet 650 mg PO Q4H PRN 01/14/20 12/01/21 (Tylenol) albuterol sulfate 90 mcg/actuation 2 inh inhalation .Q4H,PRN PRN 01/14/20 12/01/21 aerosol inhaler diltiazem HCl 240 mg 240 mg PO QAM 01/14/20 12/01/21 capsule,extended release 24 hr, controlled (DILT-XR) epinephrine 0.3 mg/0.3 mL 0.3 mg IM PRN PRN 01/14/20 12/01/21 injection, auto-injector ferrous sulfate 325 mg (65 mg 325 mg PO BID 03/07/20 12/01/21 iron) tablet amiodarone 200 mg tablet 200 mg PO DAILY 12/02/20 12/01/21 furosemide 20 mg tablet (Lasix) 80 mg PO BID 12/02/20 12/01/21 pantoprazole 20 mg tablet,delayed 20 mg PO BID 12/02/20 12/01/21 release potassium chloride 10 mEq 10 meq PO DAILY AM 12/12/20 10/31/21 tablet,extended release tolterodine 4 mg capsule,extended 4 mg PO DAILY AM 12/12/20 12/01/21 release 24 hr ascorbic acid (vitamin C) 500 mg 500 mg PO BID 12/14/20 10/31/21 tablet (Vitamin C) gabapentin 300 mg capsule 300 mg PO HS 12/14/20 12/01/21 insulin glargine 100 unit/mL (3 20 unit (0.2 mL) subcut HS #0 mL 12/16/20 10/31/21 mL) subcutaneous pen (Lantus Solostar U-100 Insulin) insulin aspart U-100 100 unit/mL 1 sliding scale dose subcut 01/02/21 12/01/21 (3 mL) subcutaneous pen USEASDIRECTD levothyroxine 100 mcg tablet 100 mcg PO HS 01/02/21 12/01/21 polyethylene glycol 3350 17 17 g PO DAILY 01/02/21 12/01/21 gram/dose oral powder (Miralax) dulaglutide 1.5 mg/0.5 mL 1.5 mg subcut QWEEK 01/06/21 12/01/21 subcutaneous pen injector (Trulicity) tiotropium 2.5 mcg-olodaterol 2.5 2 puff inhalation DAILY #4 grams 02/21/21 12/01/21 mcg/actuation mist for inhalation (Stiolto Respimat) aspirin 81 mg chewable tablet 81 mg PO DAILY 04/16/21 12/01/21 buspirone 5 mg tablet 5 mg PO TID 04/16/21 12/01/21 citalopram 20 mg tablet 20 mg PO DAILY 04/16/21 12/01/21 ergocalciferol (vitamin D2) 1,250 1,250 mcg PO QWEEK 04/16/21 12/01/21 mcg (50,000 unit) capsule vitamin B complex 1 tab PO DAILY 04/16/21 12/01/21 BiPap #1 ea 04/18/21 09/14/21 apixaban 2.5 mg tablet 2.5 mg PO BID #20 tabs 04/18/21 12/01/21 sodium chloride 0.65 % nasal spray 4 spray NS QID PRN PRN #44 mL 04/18/21 10/31/21 aerosol (Deep Sea Nasal) metformin 500 mg tablet 750 mg PO TID 09/14/21 12/01/21 tramadol 100 mg tablet 50 mg PO DAILY PRN 12/01/21 12/01/21 Previous Rx's Medication Instructions Recorded insulin glargine 100 unit/mL (3 20 unit (0.2 mL) subcut HS #0 mL 12/16/20 mL) subcutaneous pen (Lantus Solostar U-100 Insulin) tiotropium 2.5 mcg-olodaterol 2.5 2 puff inhalation DAILY #4 grams 02/21/21 mcg/actuation mist for inhalation (Stiolto Respimat) BiPap #1 ea 04/18/21 apixaban 2.5 mg tablet 2.5 mg PO BID #20 tabs 04/18/21 sodium chloride 0.65 % nasal spray 4 spray NS QID PRN PRN #44 mL 04/18/21 aerosol (Deep Sea Nasal) Allergies Allergy/AdvReac Type Severity Reaction Status Date / Time bee venom protein (honey bee) Allergy Unknown Verified 10/31/21 12:35 Penicillins Allergy Unknown Verified 10/31/21 12:35 strawberry Allergy Unknown Verified 10/31/21 12:35 General Stated Complaint: RespSymp KENDRICK: 3 Review of Systems Narrative: Denies chest pain or fever. On 1 L nasal cannula. 7 systems were reviewed and otherwise negative PFSH All Active Problems (Updated 12/01/21 @ 18:37 by Bruno Barth MD) Hypoxia (Acute) Onychomycosis (Acute) Anterior epistaxis (Acute) Pulmonary nodule (Acute) Morbid obesity (Acute) Vitamin D deficiency (Acute) MRSA (methicillin resistant staph aureus) culture positive (Acute) Hypoxia (Acute) Hypothyroidism (Chronic) Bilateral cellulitis of lower leg (Acute) Localized swelling of both lower legs (Acute) On amiodarone therapy (Acute) Palliative care patient (Acute) Cellulitis of left lower leg (Acute) Plaque psoriasis (Acute) GERD (gastroesophageal reflux disease) (Chronic) Hypercholesterolemia (Acute) Obesity (Chronic) CHF (congestive heart failure) (Chronic) Family history unobtainable due to patient's condition (Acute) Medical History Acute and chronic respiratory failure with hypercapnia Acute exacerbation of chronic obstructive pulmonary disease Acute on chronic respiratory failure with hypoxia and hypercapnia Acute respiratory distress Acute respiratory distress Altered mental status Arthritis Atrial fibrillation Cellulitis bilateral lower extremities Cellulitis CHF (congestive heart failure) Chronic atrial fibrillation, unspecified Chronic respiratory failure with hypoxia COPD (chronic obstructive pulmonary disease) Diabetes mellitus HCAP (healthcare-associated pneumonia) HCAP (healthcare-associated pneumonia) HCAP (healthcare-associated pneumonia) Hypercarbia Methicillin susceptible Staphylococcus aureus infection as the cause of diseases classified elsewhere Mood disorder Morbid (severe) obesity with alveolar hypoventilation Muscle weakness (generalized) Obesity Pneumonia Sepsis Sepsis Streptococcal bacteremia Toxic metabolic encephalopathy Type 2 diabetes mellitus Type 2 diabetes mellitus with hyperglycemia Surgical History H/O hand surgery right index finger removal of tendon sheath ganglion H/O: hysterectomy History of carpal tunnel surgery of right wrist History of excision of lesion abdominal cyst removed S/P appendectomy Family History Father Heart disease 2 [place], at 62 Mother Heart disease Social History Smoking/Tobacco Use Status: Former Tobacco Use Smoking risk assessment performed?: Yes Alcohol Intake: never Drug use: Never Substance use type: does not use Do you feel safe at home: Yes Do you feel safe in your relationship?: Yes Exam Narrative Exam Narrative: GEN: awake, alert, oriented 3. Pleasant, well groomed, interactive. HEAD: Normocephalic, atraumatic ENT: Mucous membranes moist, oropharynx unremarkable, External ear exam unremarkable EYES: PERRL, EOMI NECK: Full ROM, no MARLY, no menigismus CHEST/RESP: Nontender, bilateral end expiratory wheeze, bibasilar rales CARDIOVASCULAR: RRR, no murmur, rub merly. 2+ Rad pulse bilateral ABDOMEN: Soft, nontender, no mass. +Bowel sounds EXT: Full ROM, bilateral pretibial edema Neuro: Grossly normal neurologic exam, conversant, interactive. Psych: Speech fluent, thoughts congruent, affect normal Course Vital Signs Vital signs: Vital Signs Temperature 37 C 12/01/21 12:25 Pulse 89 12/01/21 12:25 Respiratory Rate 22 12/01/21 12:25 Pulse Oximetry 95 12/01/21 12:25 Temperature 37 C 12/01/21 12:25 Temperature Source Oral 12/01/21 12:25 Pulse 89 12/01/21 12:25 Respiratory Rate 22 12/01/21 12:25 Respiratory Effort Non-Labored 12/01/21 12:33 Blood Pressure Position Supine 12/01/21 12:25 Pulse Oximetry 95 12/01/21 12:25 Oxygen Delivery Method Nasal Cannula 12/01/21 12:25 Oxygen Flow Rate 2 12/01/21 12:25 Pain Level 0 12/01/21 12:25
[2021-12-01] MEDS: methylPREDNISolone SUCC 125 MG VIAL IVP (12:55)
[2021-12-01 13:00] LABS: Abs Immature Grans 0.13 10^3/uL (0.0-0.06); Absolute Basophil Count 0.06 10^3/uL (0.0-0.2); Absolute Eosinophil Count 0.25 10^3/uL (0.0-0.7); Absolute Lymphocyte Count 1.91 10^3/uL (1.2-3.4); Absolute Monocyte Count 0.72 10^3/uL (0.1-0.8); Absolute Neutrophil Count 6.89 10^3/uL (1.2-6.7); Basophils % 0.6; Eosinophils % 2.5; HCT 36.3 % (36.0-46.0); HGB 11.3 g/dL (11.2-15.7); Immature Grans % 1.3; Lymphocytes % 19.2; MCH 31.7 pg (27.0-33.0); MCHC 31.1 % (32.0-36.0); MCV 102 fL (80-95); MPV 8.4 fL (8.0-11.0); Monocytes % 7.2; Neutrophils % 69.2; Nucleated RBC 0.2 % (0.0-0.3); Platelet Count 342 10^3/uL (130-400); RBC 3.57 10^6/uL (3.93-5.22); RDW-SD 51.8 fL; WBC 9.96 10^3/uL (4.4-10.8)
[2021-12-01 13:09] LABS: HCO3 48 mmol/L (22-26); pH 7.42 (7.35-7.45); sO2 72 % (95-98); tCO2 44 mmol/L (23-27)
[2021-12-01 13:12] LABS: BE > 15 mmol/L (-2-3)
[2021-12-01 13:13] LABS: FIO2L 1 L; Site Left Radial
[2021-12-01 13:14] LABS: pCO2 74 mmHg (35-45); pO2 39 mmHg (80-105)
[2021-12-01 13:26] LABS: ALT 17 U/L (14-59); AST 12 U/L (15-37); Albumin 2.5 g/dL (3.4-5.0); Alkaline Phosphatase 77 U/L (46-116); BUN 13 mg/dL (7-18); Bilirubin, Total 0.2 mg/dL (0.2-1.0); Calcium 8.6 mg/dL (8.5-10.1); Chloride 92 mmol/L (98-107); Estimated GFR 59.49 (mL/min/1.73m2); Glucose 164 mg/dL (74-106); Magnesium 1.6 mg/dL (1.8-2.4); NT-proBNP 1094 pg/mL (<300); Potassium 3.3 mmol/L (3.5-5.1); Sodium 139 mmol/L (136-145); Total Protein 6.4 g/dL (6.4-8.2); Troponin I < 50 ng/L (<or=60)
[2021-12-01 13:27] LABS: Anion Gap 1.99999 mmol/L (3-11); CO2 > 45.0 mmol/L (21.0-32.0)
[2021-12-01 13:35] LABS: COVID-19 PCR Negative (Negative); Influenza A PCR Negative (Negative); Influenza B PCR Negative (Negative); RSV PCR Negative (Negative)
[2021-12-01 13:40] LABS: Source Nasopharynx
[2021-12-01] MEDS: Furosemide 100 MG/10 ML VIAL 80 MG IVP (13:56)
[2021-12-01] MEDS: Potassium Chloride Liquid 20 MEQ PKT PO (13:56)
[2021-12-01] MEDS: MAGNESIUM SULFATE 2 GM/50 ML BAG IVPB (15:04)
[2021-12-01 15:40] LABS: Troponin I < 50 ng/L (<or=60)
[2021-12-01] MEDS: Albuterol/Ipratropium 3 ML UPD VIAL (16:13)
[2021-12-01] MEDS: Albuterol/Ipratropium 3 ML UPD VIAL UPD (16:13)
--- NOTE | 2021-12-01 18:37 | W.PM.HP.N ---
Date of service: 12/01/21 Time of Service: 18:37 Assessment and Plan Assessment and plan (1) Acute on chronic respiratory failure with hypoxemia: Start date: 12/01/21 Status: Acute Assessment and plan: This is a 71-year-old lady with rather sudden onset of increased oxygen needs and acute CHF with a history of CHF. She was given Lasix IV in the ED and this will be converted to IV Lasix 80 mg twice daily and advance if needed or tolerated. She is a DNR/DNI. She is already responded to IV Lasix and feeling better with what appears to be decreasing oxygen needs. BiPAP as needed patient chronically wearing BiPAP at night for ANDREINA. Adjust O2 supplement with the patient still requiring higher dose than her usual. (2) Acute CHF (congestive heart failure): Start date: 12/01/21 Status: Acute Assessment and plan: Patient chronically on Lasix but failed with acute respiratory failure and hypoxemia worsening. IV Lasix adjusting to need. Patient is a DNR/DNI. (3) Morbid (severe) obesity with alveolar hypoventilation: Assessment and plan: Continue BiPAP at increased need during acute hospital stay but long-term patient will be on BiPAP nightly. She is a DNR/DNI. (4) COPD (chronic obstructive pulmonary disease): Assessment and plan: Continue outpatient respiratory treatments and increase nebulizer treatments while hospitalized. Avoid steroids for now. (5) Diabetes mellitus: Assessment and plan: Hold outpatient medical therapy and cover with sliding scale short acting insulin coverage with before meal and bedtime glucometers. (6) Hypokalemia: Status: Acute Assessment and plan: Replete with IV and oral therapy and monitor labs adjusting supplement as needed. This may need to be increased with IV Lasix therapy. (7) Hypothyroidism: Status: Chronic Assessment and plan: Continue outpatient supplement and check TSH. Qualifiers: Hypothyroidism type: unspecified Qualified Code(s): E03.9 - Hypothyroidism, unspecified (8) Chronic atrial fibrillation, unspecified: Assessment and plan: Continue outpatient medical regimen watching closely for hypotension with diuresis. Continue anticoagulation without change. History of Present Illness History of Present Illness Chief Complaint: Hypoxemia with Dyspnea at Rest Narrative: This is a 71-year-old female patient from the [facility] who has chronic respiratory failure with morbid obesity and ANDREINA as well as CO2 retention at times and wearing BiPAP at night for ANDREINA who was having increased oxygen needs with confusion and dyspnea for 1 day. She was confused at night prior to admission and was brought to the ED for evaluation. She was found to have acute CHF and responded well to IV Lasix as well as BiPAP. She was requiring more oxygen supplement than usual and her mental status did clear somewhat with improvement of her oxygenation. She is not having any chest pain. Her usual oxygen requirements are 1 to 2 L per nasal cannula and in the ED she was on BiPAP with O2. The patient was not markedly elevated with a PCO2 of 73 and VBG showed a pH of 7.4. She was not dry and her troponin was negative. Her BNP was elevated and at that she did respond to IV Lasix. Plans were to admit her for IV Lasix treatment aggressively while treating her chronic medical problems with a history of chronic atrial fibrillation on anticoagulation and diabetes. At the time I interviewed the patient she was much more alert and comfortable with O2 nasal cannula off BiPAP with diuretics continuing IV. Review of Systems Narrative: 13 point review of systems otherwise unrevealing or stable. Patient appears to have lost weight since her diagnosis of morbid obesity. [facility] All Active Problems Acute on chronic diastolic CHF (congestive heart failure), NYHA class 1 (Acute) Acute on chronic respiratory failure with hypoxia and hypercapnia (Acute) Discharge planning issues (Acute) DVT prophylaxis (Acute) Acute CHF (congestive heart failure) (Acute) Acute on chronic respiratory failure with hypoxemia (Acute) Hypoxia (Acute) Onychomycosis (Acute) Anterior epistaxis (Acute) Pulmonary nodule (Acute) Morbid obesity (Acute) Vitamin D deficiency (Acute) MRSA (methicillin resistant staph aureus) culture positive (Acute) Hypoxia (Acute) Hypokalemia (Acute) Hypothyroidism (Chronic) Bilateral cellulitis of lower leg (Acute) Localized swelling of both lower legs (Acute) On amiodarone therapy (Acute) Palliative care patient (Acute) Cellulitis of left lower leg (Acute) Plaque psoriasis (Acute) GERD (gastroesophageal reflux disease) (Chronic) Hypercholesterolemia (Acute) Obesity (Chronic) CHF (congestive heart failure) (Chronic) Family history unobtainable due to patient's condition (Acute) Medical History Acute and chronic respiratory failure with hypercapnia Acute exacerbation of chronic obstructive pulmonary disease Acute on chronic respiratory failure with hypoxia and hypercapnia Acute respiratory distress Acute respiratory distress Altered mental status Arthritis Atrial fibrillation Cellulitis bilateral lower extremities Cellulitis CHF (congestive heart failure) Chronic atrial fibrillation, unspecified Chronic respiratory failure with hypoxia COPD (chronic obstructive pulmonary disease) Diabetes mellitus HCAP (healthcare-associated pneumonia) HCAP (healthcare-associated pneumonia) HCAP (healthcare-associated pneumonia) Hypercarbia Methicillin susceptible Staphylococcus aureus infection as the cause of diseases classified elsewhere Mood disorder Morbid (severe) obesity with alveolar hypoventilation Muscle weakness (generalized) Obesity Pneumonia Sepsis Sepsis Streptococcal bacteremia Toxic metabolic encephalopathy Type 2 diabetes mellitus Type 2 diabetes mellitus with hyperglycemia Surgical History H/O hand surgery right index finger removal of tendon sheath ganglion H/O: hysterectomy History of carpal tunnel surgery of right wrist History of excision of lesion abdominal cyst removed S/P appendectomy Family History Father Heart disease 2 [place], at 62 Mother Heart disease Social History Smoking/Tobacco Use Status: Former Tobacco Use Smoking risk assessment performed?: Yes Alcohol Intake: never Drug use: Never Substance use type: does not use Do you feel safe at home: Yes Do you feel safe in your relationship?: Yes Meds Allergies and Home Medications Allergies Allergy/AdvReac Type Severity Reaction Status Date / Time bee venom protein (honey bee) Allergy Unknown Verified 10/31/21 12:35 Penicillins Allergy Unknown Verified 10/31/21 12:35 strawberry Allergy Unknown Verified 10/31/21 12:35 Home Medications Medication Instructions Recorded Confirmed Type acetaminophen 325 mg tablet 650 mg PO Q4H PRN 01/14/20 12/01/21 History (Tylenol) albuterol sulfate 90 mcg/actuation 2 inh inhalation .Q4H,PRN PRN 01/14/20 12/01/21 History aerosol inhaler diltiazem HCl 240 mg 240 mg PO QAM 01/14/20 12/01/21 History capsule,extended release 24 hr, controlled (DILT-XR) epinephrine 0.3 mg/0.3 mL 0.3 mg IM PRN PRN 01/14/20 12/01/21 History injection, auto-injector ferrous sulfate 325 mg (65 mg 325 mg PO BID 03/07/20 12/01/21 History iron) tablet amiodarone 200 mg tablet 200 mg PO DAILY 12/02/20 12/01/21 History furosemide 20 mg tablet (Lasix) 80 mg PO BID 12/02/20 12/01/21 History pantoprazole 20 mg tablet,delayed 20 mg PO BID 12/02/20 12/01/21 History release potassium chloride 10 mEq 10 meq PO DAILY AM 12/12/20 10/31/21 History tablet,extended release tolterodine 4 mg capsule,extended 4 mg PO DAILY AM 12/12/20 12/01/21 History release 24 hr ascorbic acid (vitamin C) 500 mg 500 mg PO BID 12/14/20 10/31/21 History tablet (Vitamin C) gabapentin 300 mg capsule 300 mg PO HS 12/14/20 12/01/21 History insulin glargine 100 unit/mL (3 20 unit (0.2 mL) subcut HS #0 mL 12/16/20 10/31/21 Rx mL) subcutaneous pen (Lantus Solostar U-100 Insulin) insulin aspart U-100 100 unit/mL 1 sliding scale dose subcut 01/02/21 12/01/21 History (3 mL) subcutaneous pen USEASDIRECTD levothyroxine 100 mcg tablet 100 mcg PO HS 01/02/21 12/01/21 History polyethylene glycol 3350 17 17 g PO DAILY 01/02/21 12/01/21 History gram/dose oral powder (Miralax) dulaglutide 1.5 mg/0.5 mL 1.5 mg subcut QWEEK 01/06/21 12/01/21 History subcutaneous pen injector (Trulicity) tiotropium 2.5 mcg-olodaterol 2.5 2 puff inhalation DAILY #4 grams 02/21/21 12/01/21 Rx mcg/actuation mist for inhalation (Stiolto Respimat) aspirin 81 mg chewable tablet 81 mg PO DAILY 04/16/21 12/01/21 History buspirone 5 mg tablet 5 mg PO TID 04/16/21 12/01/21 History citalopram 20 mg tablet 20 mg PO DAILY 04/16/21 12/01/21 History ergocalciferol (vitamin D2) 1,250 1,250 mcg PO QWEEK 04/16/21 12/01/21 History mcg (50,000 unit) capsule vitamin B complex 1 tab PO DAILY 04/16/21 12/01/21 History BiPap #1 ea 04/18/21 09/14/21 Rx apixaban 2.5 mg tablet 2.5 mg PO BID #20 tabs 04/18/21 12/01/21 Rx sodium chloride 0.65 % nasal spray 4 spray NS QID PRN PRN #44 mL 04/18/21 10/31/21 Rx aerosol (Deep Sea Nasal) metformin 500 mg tablet 750 mg PO TID 09/14/21 12/01/21 History tramadol 100 mg tablet 50 mg PO DAILY PRN 12/01/21 12/01/21 History Exam Narrative Exam Narrative: General: Patient appears older than stated age, alert and oriented at least to person and place, in no acute distress sitting in bedside chair with nasal cannula in place. HEENT: Normocephalic, eyes with pupils equal and reactive light symmetrically, extraocular movement intact and sclera anicteric. Oropharynx with dry mucosa. Neck: Supple without JVD. Back: Stooped posture without CVA tenderness. Lungs: Decreased aeration over the bases on the right more than left with bronchovesicular breath sounds diffusely. No focalizing crackles or rales. No increased expiratory phase. Heart: Regular rate and irregular rhythm with 4/6 holosystolic murmur. No gallops or rubs. Abdomen: Obese contour, soft and nontender to palpation with no focalizing tenderness or rebound. No palpable hepatosplenomegaly. Genitalia/rectal: Exam deferred. Patient does have Hoffmann catheter in place. Extremity: Chronic 3+ nonpitting edema over both lower extremities with erythematous skin but no skin breakdown. Sequential compression stockings in place. Fair capillary refill. Skin: Skin changes over lower extremities, otherwise normal color, warm and dry. Neuro: Cranial nerves II through XII grossly intact, no focalizing motor deficits. Psych: Normal affect and mood, no abnormal thought processes. Remote memory grossly intact with recent memory less intact. Results Imaging Imaging Studies: EXAM:? XR PORTABLE CHEST AP CLINICAL HISTORY:? Shortness of breath TECHNIQUE:? 2D digital imaging was performed. COMPARISON:? CR XR PORTABLE CHEST AP POST LINE from 03/09/2020 CR,XR XR PORTABLE CHEST AP from 12/12/2020 CR,XR XR CHEST 2V PA ? LATERAL from 01/02/2021 CR XR PORTABLE CHEST AP from 01/13/2021 CR XR PORTABLE CHEST AP from 04/15/[address] CHEST LUNG CANCER SCREEN from 06/02/2021 FINDINGS: ?Exam is somewhat limited by patient's body habitus and semi-upright projection. There is stable cardiomegaly and pulmonary vascular prominence.? No focal infiltrate or effusion is seen.? There is no gross evidence of overt pulmonary edema. IMPRESSION: No acute? findings. Labs Result diagrams: 12/02/21 06:30 12/02/21 06:30 Labs: Laboratory Results - last 24 hr 12/01/21 12/01/21 12/01/21 12:40 12:40 12:48 WBC 9.96 RBC 3.57 L Hgb 11.3 Hct 36.3 MCV 102 H MCH 31.7 MCHC 31.1 L RDW 14.0 Plt Count 342 MPV 8.4 Immature Gran % 1.3 Neutrophils % 69.2 Lymphocytes % 19.2 Monocytes % 7.2 Eosinophils % 2.5 Basophils % 0.6 Nucleated RBC % 0.2 Absolute Neutrophils 6.89 H Absolute Lymphocytes 1.91 Absolute Monocytes 0.72 Absolute Eosinophils 0.25 Absolute Basophils 0.06 ABG Sample Site ABG pH ABG pCO2 ABG pO2 ABG HCO3 ABG Total CO2 ABG O2 Saturation ABG Base Excess Oxygen Liter Flow Sodium 139 Potassium 3.3 L Chloride 92 L Carbon Dioxide > 45.0 H Anion Gap 1.65601 L BUN 13 Creatinine 1.0 Est GFR (CKD-EPI 2020) 59.49 Glucose 164 H Calcium 8.6 Magnesium 1.6 L Total Bilirubin 0.2 AST 12 L ALT 17 Alkaline Phosphatase 77 Troponin I < 50 NT-Pro-B Natriuret Pep 1094 H Total Protein 6.4 Albumin 2.5 L COVID-19 Source Nasopharynx SARS-CoV-2 (PCR) Negative Influenza Type A (PCR) Negative Influenza Type B (PCR) Negative RSV (PCR) Negative 12/01/21 12/01/21 13:07 15:18 WBC RBC Hgb Hct MCV MCH MCHC RDW Plt Count MPV Immature Gran % Neutrophils % Lymphocytes % Monocytes % Eosinophils % Basophils % Nucleated RBC % Absolute Neutrophils Absolute Lymphocytes Absolute Monocytes Absolute Eosinophils Absolute Basophils ABG Sample Site Left Radial ABG pH 7.42 ABG pCO2 74 H* ABG pO2 39 L* ABG HCO3 48 H ABG Total CO2 44 H ABG O2 Saturation 72 L ABG Base Excess > 15 H Oxygen Liter Flow 1 Sodium Potassium Chloride Carbon Dioxide Anion Gap BUN Creatinine Est GFR (CKD-EPI 2020) Glucose Calcium Magnesium Total Bilirubin AST ALT Alkaline Phosphatase Troponin I < 50 NT-Pro-B Natriuret Pep Total Protein Albumin COVID-19 Source SARS-CoV-2 (PCR) Influenza Type A (PCR) Influenza Type B (PCR) RSV (PCR) Last Vital Signs Temp 37 C 12/01/21 12:25 Pulse 87 12/01/21 18:30 Resp 21 12/01/21 15:31 BP 102/45 L 12/01/21 18:30 Pulse Ox 92 12/01/21 15:26
[2021-12-01] MEDS: Pantoprazole 20 MG TABCR PO (21:35)
[2021-12-01] MEDS: Ascorbic Acid 500 MG TAB PO (21:35)
[2021-12-01] MEDS: Apixaban 2.5 MG TAB PO (21:35)
[2021-12-01] MEDS: busPIRone 5 MG TAB PO (21:37)
[2021-12-01] MEDS: Ferrous Sulfate 325 MG TAB PO (21:37)
[2021-12-01] MEDS: dilTIAZem 60 MG TAB PO (21:37)
[2021-12-02] VITALS (16 sets, daily range): BP systolic 107–162; BP diastolic 55–84; PULSE 72–83; RESP 8–22; TEMP 35.7–37.4; O2SAT 83–96
[2021-12-02] MEDS: Levothyroxine 100 MCG TAB PO (06:08)
[2021-12-02 07:30] LABS: Abs Immature Grans 0.18 10^3/uL (0.0-0.06); Absolute Basophil Count 0.03 10^3/uL (0.0-0.2); Absolute Lymphocyte Count 1.35 10^3/uL (1.2-3.4); Absolute Monocyte Count 0.23 10^3/uL (0.1-0.8); Basophils % 0.2; HCT 35.4 % (36.0-46.0); HGB 11.3 g/dL (11.2-15.7); Immature Grans % 1.4; Lymphocytes % 10.7; MCH 31.7 pg (27.0-33.0); MCHC 31.9 % (32.0-36.0); MCV 99 fL (80-95); MPV 8.8 fL (8.0-11.0); Monocytes % 1.8; Neutrophils % 85.9; Nucleated RBC 0.2 % (0.0-0.3); Platelet Count 347 10^3/uL (130-400); RBC 3.56 10^6/uL (3.93-5.22); RDW 13.8 % (11.7-14.6); RDW-SD 50.4 fL; WBC 12.58 10^3/uL (4.4-10.8)
[2021-12-02 07:41] LABS: Absolute Neutrophil Count 10.81 10^3/uL (1.2-6.7)
[2021-12-02 07:51] LABS: ALT 17 U/L (14-59); AST 14 U/L (15-37); Albumin 2.4 g/dL (3.4-5.0); Alkaline Phosphatase 75 U/L (46-116); BUN 11 mg/dL (7-18); Bilirubin, Total 0.2 mg/dL (0.2-1.0); CREATININE 0.7 mg/dL (0.55-1.02); Calcium 8.9 mg/dL (8.5-10.1); Chloride 92 mmol/L (98-107); Estimated GFR 91.26 (mL/min/1.73m2); Glucose 228 mg/dL (74-106); Potassium 3.3 mmol/L (3.5-5.1); Sodium 137 mmol/L (136-145); Total Protein 6.4 g/dL (6.4-8.2)
[2021-12-02] MEDS: Milk of Magnesia 30 ML CUP PO (08:06)
[2021-12-02] MEDS: Ascorbic Acid 500 MG TAB PO ×2 (08:06→20:49)
[2021-12-02] MEDS: Furosemide 100 MG/10 ML VIAL 80 MG IVP ×2 (08:06→16:30)
[2021-12-02] MEDS: dilTIAZem 60 MG TAB PO ×3 (08:07→20:49)
[2021-12-02] MEDS: Citalopram 20 MG TAB PO (08:07)
[2021-12-02] MEDS: Amiodarone 200 MG TAB PO (08:07)
[2021-12-02] MEDS: Pantoprazole 20 MG TABCR PO ×2 (08:07→20:46)
[2021-12-02] MEDS: busPIRone 5 MG TAB PO ×3 (08:07→20:47)
[2021-12-02] MEDS: Ferrous Sulfate 325 MG TAB PO ×2 (08:07→20:49)
[2021-12-02] MEDS: Potassium Chloride 20 MEQ TABCR PO ×2 (08:07→20:49)
[2021-12-02] MEDS: Aspirin 81 MG CHEW PO (08:07)
[2021-12-02] MEDS: Apixaban 2.5 MG TAB PO ×2 (08:07→20:47)
[2021-12-02 08:08] LABS: Anion Gap -0.00001 mmol/L (3-11); CO2 > 45.0 mmol/L (21.0-32.0)
--- NOTE | 2021-12-02 08:12 | DM INPTCON_ITS ---
Date of service: 12/02/21 Time of Service: 08:12 Diabetes Inpatient Consult Reason for Visit: diabetes education and management DESCRIPTION/ASSESSMENT: [facility]. King [facility]. She demonstrates an excellent understanding of carbohydrate counting. Her meals are [facility] for her at the [facility]. Her BMI is 51.8 kg/m2 c/w severe obesity. In the past year, she has had an insignificant weight loss of 3.8% which fluid status could contribute to varying weights. Nonetheless, she has not gained weight in the past year which is good. Her home medication list shows Trulicity 1.5 mg q week, metformin 750 mg tid, Glargine 20 units/day and aspart correction. Her A1C's over the past two years have ranged from 5.6 to 7.8. Her A1C in Apr was 6.2. These A1Cs suggest tight blood sugar management. INTERVENTION: Given Ms. King's age and comorbidities, we could consider streamlining her diabetes medications given her A1Cs. Would suggest a trial of holding glargine on discharge and go from there. PLAN: Will monitor weight, PO, blood sugars. Will evaluate nutrition care plan ongoing and adjust as needed. Time Spent in Nutritional Counseling and Treatment: 0
[2021-12-02] MEDS: Tiotropium/Olodaterol 10 PUFF INHALER 2 PUFF IH (08:13)
[2021-12-02] MEDS: Insulin Aspart 300 UNITS/3 ML PEN SC ×4 (08:18→21:35)
[2021-12-02] MEDS: Tolterodine 2 MG CAPCR 4 MG PO (08:28)
[2021-12-02] MEDS: Normal Saline Flush 10 ML SYR IVP ×4 (09:08→18:10)
--- NOTE | 2021-12-02 09:25 | PDOC.CMIN ---
- If Service Date Differs Date of service: 12/02/21 Time of Service: 09:25 Care Management Initial Assess REASON FOR HOSPITALIZATION:: Acute on chronic respiratory failure with hypoxemia, Acute CHF, Morbid (severe) obesity with alveolar hypoventilation PAST MEDICAL HISTORY/PAST SURGICAL HISTORY:: All Active Problems . Acute CHF (congestive heart failure) (Acute). Acute on chronic respiratory failure with hypoxemia (Acute). Hypoxia (Acute). Onychomycosis (Acute). Anterior epistaxis (Acute). Pulmonary nodule (Acute). Morbid obesity (Acute). Vitamin D deficiency (Acute). MRSA (methicillin resistant staph aureus) culture positive (Acute). Hypoxia (Acute). Hypothyroidism (Chronic). Bilateral cellulitis of lower leg (Acute). Localized swelling of both lower legs (Acute). On amiodarone therapy (Acute). Palliative care patient (Acute). Cellulitis of left lower leg (Acute). Plaque psoriasis (Acute). GERD (gastroesophageal reflux disease) (Chronic). Hypercholesterolemia (Acute). Obesity (Chronic). CHF (congestive heart failure) (Chronic). Family history unobtainable due to patient's condition (Acute). Medical History . Acute and chronic respiratory failure with hypercapnia. Acute exacerbation of chronic obstructive pulmonary disease. Acute on chronic respiratory failure with hypoxia and hypercapnia. Acute respiratory distress. Acute respiratory distress. Altered mental status. Arthritis. Atrial fibrillation. Cellulitis. bilateral lower extremities. Cellulitis. CHF (congestive heart failure). Chronic atrial fibrillation, unspecified. Chronic respiratory failure with hypoxia. COPD (chronic obstructive pulmonary disease). Diabetes mellitus. HCAP (healthcare-associated pneumonia). HCAP (healthcare-associated pneumonia). HCAP (healthcare-associated pneumonia). Hypercarbia. Methicillin susceptible Staphylococcus aureus infection as the cause of diseases classified elsewhere. Mood disorder. Morbid (severe) obesity with alveolar hypoventilation. Muscle weakness (generalized). Obesity. Pneumonia. Sepsis. Sepsis. Streptococcal bacteremia. Toxic metabolic encephalopathy. Type 2 diabetes mellitus. Type 2 diabetes mellitus with hyperglycemia. Surgical History . H/O hand surgery. right index finger removal of tendon sheath ganglion. H/O: hysterectomy. History of carpal tunnel surgery of right wrist. History of excision of lesion. abdominal cyst removed. S/P appendectomy PREVIOUS FUNCTIONAL STATUS/SOCIAL/FAMILY SUPPORTS:: Marlen is a resident of the [facility]. She previously lived in a level three facility in [place], [place], but was relocated to the [facility] when the [facility] closed. She has a daughter, Karlie, who lives locally and is supportive. Marlen needs assistance with her ADLs which is provided by staff at the [facility]. CURRENT FUNCTIONAL STATUS:: Marlen is sitting up in her chair when CM met with her. She is pleasant and easy to engage in conversation. She has no questions or concerns at this time. She is planning on discharging back to the [facility] where she resides when medically ready. ADVANCE DIRECTIVES:: On file; daughter Karlie Salazar is appointed as Health Care Agent. Has patient been provided with info about the portal/API?: Yes Did the patient sign up for the portal?: No CODE STATUS:: DNR/DNI INSURANCE COVERAGE / FINANCIAL ISSUES:: Medicare and Medicaid. CURRENT HOME/COMMUNITY SERVICES/EQUIPMENT:: Marlen has a FWW and a wheelchair. She currently lives at the [facility] where she receives assistance with her care. She is a Palliative Care patient. PRIMARY CARE PHYSICIAN:: Evi Cloud. POTENTIAL DISCHARGE NEEDS:: Follow up appointment with PCP and coordinated return to the [facility]. PATIENT/FAMILY EDUCATION NEEDS:: Review discharge instructions, limitations and plan of care; discuss Ask Me Three and self management needs. TRANSPORTATION:: Via [facility] wheelchair van. PLAN:: Anticipate Marlen will return to the [facility] when medically cleared by provider. She will follow up with her PCP and discharge plan of care as directed. She will be transported to the [facility] by [facility] wheelchair van coordinated by CM when ready. Palliative consult is ordered, to discuss goals of care. CM will continue to follow.
[2021-12-02] MEDS: POTASSIUM CHLORIDE 20 MEQ/100 ML BAG 50 MEQ IVPB ×2 (11:27→14:19)
[2021-12-02 12:24] LABS: Lab Add On Test DONE
[2021-12-02 12:33] LABS: Magnesium 2.1 mg/dL (1.8-2.4)
--- NOTE | 2021-12-02 15:56 | CHAPLAIN ---
Marlen is here from the [facility]. She was up in the chair when I visited. I explained my role and offered support. Marlen said her daughter lives in [place], and the [facility] let her know that Marlen is here.
--- NOTE | 2021-12-02 18:02 | W.PM.PROGNOT ---
Date of Service Date of service: 12/02/21 Time of Service: 18:02 Assessment and Plan Assessment and plan (1) Acute on chronic respiratory failure with hypoxia and hypercapnia: Status: Acute Assessment and plan: Due to acute on chronic diastolic CHF. Continue/intensify diuresis (transition to lasix gtt). continue BiPAP at night. Monitor I/O's and daily weights. Improving. (2) Acute on chronic diastolic CHF (congestive heart failure), NYHA class 1: Status: Acute Assessment and plan: As above. Last echo done in 12/2020. If still here early next week, would benefit from a repeat echo. (3) Morbid (severe) obesity with alveolar hypoventilation: Assessment and plan: Continue BiPAp at night (4) COPD (chronic obstructive pulmonary disease): Assessment and plan: Does not appear to be in acute exacerbation at this time. Continue current management with prn cheryl mendoza (5) Diabetes mellitus: Assessment and plan: Basal bolus insulin (6) Hypokalemia: Status: Acute Assessment and plan: recheck in am. Repleted. (7) Hypothyroidism: Status: Chronic Assessment and plan: Check TSH Qualifiers: Hypothyroidism type: unspecified Qualified Code(s): E03.9 - Hypothyroidism, unspecified (8) Chronic atrial fibrillation, unspecified: Assessment and plan: Regular on my exam today. On amidoarone, apixaban. (9) DVT prophylaxis: Status: Acute Assessment and plan: on therapeutic apixaban (10) Discharge planning issues: Status: Acute Assessment and plan: DNR/DNI Continues to require hospitalization Subjective Subjective Interval history since last seen: Ms King states that she is feeling better today. Her breathing is better. She is coughing very little - nonproductive. She feels like it's crackly in there. Denies dizziness, chest pain, nausea. -3L of urine today so far. On 3L of O2 by NC. Exam Narrative Exam Narrative: General: Pleasant obese female who is sitting up in a chair, A&Ox3, NAD HEENT: EOMI, MMM Heart: RRR, no m/r/g Lungs: crackles at B bases Abdomen: soft, nontender, nondistended Extremities: 2+ BLE edema; BLEs wrapped. Objective Last Vital Signs Temp 35.7 C L 12/02/21 15:52 Pulse 80 09/23/22 16:29 Resp 18 12/02/21 15:52 BP 114/67 12/02/21 16:29 Pulse Ox 83 L 12/02/21 15:52 Laboratory Results - last 24 hr 12/02/21 12/02/21 12/02/21 06:30 06:30 06:30 WBC 12.58 H RBC 3.56 L Hgb 11.3 Hct 35.4 L MCV 99 H MCH 31.7 MCHC 31.9 L RDW 13.8 Plt Count 347 MPV 8.8 Immature Gran % 1.4 Neutrophils % 85.9 Lymphocytes % 10.7 Monocytes % 1.8 Eosinophils % 0.0 Basophils % 0.2 Nucleated RBC % 0.2 Absolute Neutrophils 10.81 H Absolute Lymphocytes 1.35 Absolute Monocytes 0.23 Absolute Eosinophils 0.00 Absolute Basophils 0.03 Sodium 137 Potassium 3.3 L Chloride 92 L Carbon Dioxide > 45.0 H Anion Gap -0.26646 L BUN 11 Creatinine 0.7 Est GFR (CKD-EPI 2020) 91.26 Glucose 228 H Calcium 8.9 Magnesium Total Bilirubin 0.2 AST 14 L ALT 17 Alkaline Phosphatase 75 Total Protein 6.4 Albumin 2.4 L Add-On Test Request DONE 12/02/21 06:30 WBC RBC Hgb Hct MCV MCH MCHC RDW Plt Count MPV Immature Gran % Neutrophils % Lymphocytes % Monocytes % Eosinophils % Basophils % Nucleated RBC % Absolute Neutrophils Absolute Lymphocytes Absolute Monocytes Absolute Eosinophils Absolute Basophils Sodium Potassium Chloride Carbon Dioxide Anion Gap BUN Creatinine Est GFR (CKD-EPI 2020) Glucose Calcium Magnesium 2.1 Total Bilirubin AST ALT Alkaline Phosphatase Total Protein Albumin Add-On Test Request
[2021-12-02] MEDS: Acetaminophen 325 MG TAB PO (20:49)
[2021-12-02] MEDS: Insulin Glargine 300 UNITS/3 ML PEN 10 UNITS SC (21:34)
[2021-12-03] VITALS (9 sets, daily range): BP systolic 109–126; BP diastolic 52–78; PULSE 77–82; RESP 16–20; TEMP 36.8–37.3; O2SAT 85–98
[2021-12-03] MEDS: Albuterol/Ipratropium 3 ML UPD VIAL UPD ×2 (00:57→15:52)
[2021-12-03] MEDS: Levothyroxine 100 MCG TAB PO (05:58)
[2021-12-03 06:44] LABS: Abs Immature Grans 0.11 10^3/uL (0.0-0.06); Absolute Basophil Count 0.05 10^3/uL (0.0-0.2); Absolute Eosinophil Count 0.04 10^3/uL (0.0-0.7); Absolute Lymphocyte Count 2.05 10^3/uL (1.2-3.4); Absolute Neutrophil Count 9.05 10^3/uL (1.2-6.7); Basophils % 0.4; Eosinophils % 0.3; HCT 35.4 % (36.0-46.0); Immature Grans % 0.9; Lymphocytes % 17.1; MCH 31.3 pg (27.0-33.0); MCHC 31.1 % (32.0-36.0); MCV 101 fL (80-95); MPV 8.6 fL (8.0-11.0); Monocytes % 5.8; Neutrophils % 75.5; Platelet Count 375 10^3/uL (130-400); RBC 3.51 10^6/uL (3.93-5.22); RDW 14.3 % (11.7-14.6); RDW-SD 52.6 fL; WBC 11.99 10^3/uL (4.4-10.8)
[2021-12-03 07:06] LABS: BUN 16 mg/dL (7-18); CREATININE 0.9 mg/dL (0.55-1.02); Calcium 8.5 mg/dL (8.5-10.1); Chloride 98 mmol/L (98-107); Glucose 137 mg/dL (74-106); Potassium 3.4 mmol/L (3.5-5.1); Sodium 143 mmol/L (136-145)
[2021-12-03 07:17] LABS: Magnesium 2.2 mg/dL (1.8-2.4); TSH 3.47 uIU/mL (0.36-3.74)
[2021-12-03 07:22] LABS: CO2 > 45.0 mmol/L (21.0-32.0)
[2021-12-03] MEDS: Potassium Chloride 20 MEQ TABCR PO ×2 (08:28→12:04)
[2021-12-03] MEDS: busPIRone 5 MG TAB PO ×3 (08:28→21:20)
[2021-12-03] MEDS: Tolterodine 2 MG CAPCR 4 MG PO (08:28)
[2021-12-03] MEDS: Amiodarone 200 MG TAB PO (08:29)
[2021-12-03] MEDS: Ferrous Sulfate 325 MG TAB PO ×2 (08:29→21:20)
[2021-12-03] MEDS: Pantoprazole 20 MG TABCR PO ×2 (08:29→21:20)
[2021-12-03] MEDS: dilTIAZem 60 MG TAB PO ×3 (08:29→21:20)
[2021-12-03] MEDS: Apixaban 2.5 MG TAB PO ×2 (08:29→21:20)
[2021-12-03] MEDS: Aspirin 81 MG CHEW PO (08:29)
[2021-12-03] MEDS: Citalopram 20 MG TAB PO (08:30)
[2021-12-03] MEDS: Ascorbic Acid 500 MG TAB PO ×2 (08:30→21:20)
[2021-12-03] MEDS: Tiotropium/Olodaterol 10 PUFF INHALER 2 PUFF IH (08:31)
--- NOTE | 2021-12-03 08:52 | PT.INIE ---
PT Notes Visit Reasons: Hypoxic Respiratory Failure,CHF Exacerbation,ANDREINA Physical Therapy Inpatient Initial Evaluation Date: 12/03/21 Referring Doctor: Tawnya Mayfield MD PT Orders: PT CONSULT: Limited Ability Precautions: Fall. Standard. Patient Profile/Admitting Diagnosis: Marlen is 71 yo female that presented to the ER on 12/01/21 for shortness of breath and needs for increased oxygen. She has has COPD, DM, and CHF. Had a fall last night when chair tipped forward and she made it to the floor. Needed danna to get up. PMHX: See EMR Social History/Home Situation: ?Resident of the [facility]. Daughter, Karlie lives locally and is supportive.?Needs assistance with her ADLs which is provided by staff at the [facility]. She reports sleeping in recliner and has CPAP. On 2L O2 at baseline. Equipment Owned/DME: FWW, wheelchair Subjective: Cleared by nursing to see patient and patient is agreeable to PT. Patient is sitting up in chair at time of consult with 4L O2 via NC and has kebede catheter and IV pump. At rest SaO2 97% on 4L O2 via NC, drops to 87% with standing activity. Objective: General Observation: Alert and pleasant; dark red legs and swelling bilaterally, left leg larger, warm to touch Mental Status: A&O x3 Pain: 7/10 in bilateral legs ROM: Right Upper Extremity: Shoulder Flexion WFL. Shoulder abduction WFL. Elbow flexion WFL. Wrist flexion WFL. Opening and closing of hand WFL. Left Upper Extremity: Shoulder Flexion WFL. Shoulder abduction WFL. Elbow flexion WFL. Wrist flexion WFL. Opening and closing of hand WFL. Right Lower Extremity: Hip flexion Mild. Hip abduction WFL. Knee flexion WFL. Ankle dorsiflexion WFL. Ankle plantarflexion WFL. Left Lower Extremity: Hip flexion Mild. Hip abduction WFL. Knee flexion WFL. Ankle dorsiflexion WFL. Ankle plantarflexion WFL. Strength: Right Upper Extremity: Shoulder flexors 5-/5. Shoulder abductors 4+/5. Elbow flexors 5/5. Elbow extensors 5/5. Inventory Assistant strong. Left Upper Extremity: Shoulder flexors 5/5. Shoulder abductors 5/5. Elbow flexors 5/5. Elbow extensors 5/5. Inventory Assistant strong. Right Lower Extremity: Hip flexors 4+/5. Knee flexors 5/5. Knee extensors 5/5. Ankle dorsiflexors 5/5. Ankle plantarflexors 5/5. Left Lower Extremity: Hip flexors 4+/5. Knee flexors 5/5. Knee extensors 5/5. Ankle dorsiflexors 5/5. Ankle plantarflexors 5/5. Sensation: Intact as to pain and pressure on bilateral lower extremities. Bed Mobility/Transfers: Sit to stand: Supervision Stand to sit: Supervision Gait: Ambulated several steps in room with FWW, supervision. Quickly short of breath. Exercises: Ankle pumps Seated LAQ Seated heel raises Glut sets Balance: Static Sitting: Normal Dynamic Sitting: Normal Static Standing: Good Dynamic Standing: Fair Special Tests: Mobility Limitations Standardized Measure [facility] AM-PAC 6 clicks Basic Mobility Inpatient Short Form: Raw Score: 14 CMS Score: 61% Informed Consent/Education: Patient instructed in purpose of PT consult and plan of care. Assessment: Patient presents with clinical signs and symptoms consistent with current/admitting diagnoses that have resulted to mobility limitations, gait instability, generalized weakness, and impairment of motor control as demonstrated by the following impairment level findings: 1. Decreased strength to right shoulder major muscle groups 2. Impaired sitting/standing balance 3. Impaired activity tolerance 4. Limitation of joint range of motion in hips Impairments are contributing to the following functional limitations: 1. Dependent bed mobility skills 2. Increased dependence with bed transfers 3. Inability to safely ambulate without assistive device and physical assistance 4. Increase completion time for mobility ADL performance 5. Increased fall risk Patient is assessed as a Low complexity based on the following: History: 71 year old female with impairment level findings, functional limitations, and past medical history as indicated above Examination: Demonstrable impairment in strength, balance, and mobility level with underlying impairments and functional limitations as documented above Presentation: Stable Decision Making: Low complexity Goals: Goals x1 week 1. Sit-Stand: independent 2. Stand-Sit: independent 3. Bed-Chair: independent 4. Chair-Bed: independent 5. Independent gait on level surface with use of least restrictive device for at least 100 feet without report of pain nor dyspnea 6. Independent with home exercise program Plan of Care/Treatment Plan: 1-2x/day, 7 days/week x1 week. Plan of care has been reviewed with the T[facility] W[facility]ER providing the service under Physical Therapy direction. Initiate Physical Therapy intervention for strengthening, bed mobility, transfers, gait, stairs, balance training, and use of assistive device. Discharge Plan DISCHARGE RECOMMENDATIONS: Return to [facility] the [facility] for continued rehabilitation TREATMENT CODE/TIME: 9:03-9:34 (31 minutes), [id number] Thank you for the opportunity to participate in the care of this patient. Haritha Henry, PT, DPT, OCS [facility] [place], [place]
[2021-12-03] MEDS: POTASSIUM CHLORIDE 20 MEQ/100 ML BAG 50 MEQ IVPB (10:27)
[2021-12-03] MEDS: Insulin Aspart 300 UNITS/3 ML PEN SC ×3 (12:10→21:20)
--- NOTE | 2021-12-03 14:34 | W.PM.PROGNOT ---
Date of Service Date of service: 12/03/21 Time of Service: 14:34 Assessment and Plan Assessment and plan (1) Acute on chronic respiratory failure with hypoxia and hypercapnia: Status: Acute Assessment and plan: Due to acute on chronic diastolic CHF. Continue lasix gtt. Continue BiPAP at night. Monitor I/O's and daily weights. Improving. (2) Acute on chronic diastolic CHF (congestive heart failure), NYHA class 1: Status: Acute Assessment and plan: As above. Last echo done in 12/2020. If still here early next week, would benefit from a repeat echo. (3) Morbid (severe) obesity with alveolar hypoventilation: Assessment and plan: Continue BiPAP at night (4) COPD (chronic obstructive pulmonary disease): Assessment and plan: Does not appear to be in acute exacerbation at this time. Continue current management with prn cheryl mendoza (5) Diabetes mellitus: Assessment and plan: Basal bolus insulin (6) Hypokalemia: Status: Acute Assessment and plan: Replete and recheck in am. (7) Hypothyroidism: Status: Chronic Assessment and plan: TSH at goal. Continue levothyroxine 100 mcg daily. Qualifiers: Hypothyroidism type: unspecified Qualified Code(s): E03.9 - Hypothyroidism, unspecified (8) Chronic atrial fibrillation, unspecified: Assessment and plan: Continue amidoarone, apixaban. (9) DVT prophylaxis: Status: Acute Assessment and plan: on therapeutic apixaban (10) Discharge planning issues: Status: Acute Assessment and plan: DNR/DNI Continues to require hospitalization Subjective Subjective Interval history since last seen: When can I go back? Marlen states that her breathing is feeling better. Otherwise, she is just anxious to get back to her own environment. It's not that you're doing anything wrong! She denies dizziness, chest pain, nausea. She is on 4L of O2 by [place]. She is -2.27 L so far today. Exam Narrative Exam Narrative: General: Pleasant obese female who is sitting up in a chair, A&Ox3, NAD, mildly anxious HEENT: EOMI, MMM Heart: RRR, no m/r/g Lungs: crackles 1/2 up B lung askew, unchanged Abdomen: soft, nontender, nondistended Extremities: 2+ BLE woody edema, chronic venous stasis dermatitis Objective Last Vital Signs Temp 37.1 C 12/03/21 07:34 Pulse 77 12/03/21 07:34 Resp 16 12/03/21 07:34 BP 126/70 12/03/21 07:34 Pulse Ox 88 L 12/03/21 09:27 Laboratory Results - last 24 hr 12/03/21 12/03/21 12/03/21 06:20 06:20 06:20 WBC 11.99 H RBC 3.51 L Hgb 11.0 L Hct 35.4 L MCV 101 H MCH 31.3 MCHC 31.1 L RDW 14.3 Plt Count 375 MPV 8.6 Immature Gran % 0.9 Neutrophils % 75.5 Lymphocytes % 17.1 Monocytes % 5.8 Eosinophils % 0.3 Basophils % 0.4 Nucleated RBC % 0.0 Absolute Neutrophils 9.05 H Absolute Lymphocytes 2.05 Absolute Monocytes 0.70 Absolute Eosinophils 0.04 Absolute Basophils 0.05 Sodium 143 Potassium 3.4 L Chloride 98 Carbon Dioxide > 45.0 H Anion Gap TNP BUN 16 Creatinine 0.9 Est GFR (CKD-EPI 2020) 67.50 Glucose 137 H Calcium 8.5 Magnesium 2.2 TSH 3.47
[2021-12-03] MEDS: Potassium Chloride 20 MEQ TABCR 40 MEQ PO (21:20)
[2021-12-03] MEDS: Insulin Glargine 300 UNITS/3 ML PEN 10 UNITS SC (21:21)
[2021-12-04] VITALS (8 sets, daily range): BP systolic 110–125; BP diastolic 55–66; PULSE 74–89; RESP 15–22; TEMP 36.7–37.4; O2SAT 89–96
[2021-12-04] MEDS: Albuterol/Ipratropium 3 ML UPD VIAL UPD (00:28)
[2021-12-04] MEDS: Levothyroxine 100 MCG TAB PO (06:23)
[2021-12-04 06:51] LABS: Absolute Basophil Count 0.08 10^3/uL (0.0-0.2); Absolute Lymphocyte Count 2.06 10^3/uL (1.2-3.4); Absolute Monocyte Count 0.87 10^3/uL (0.1-0.8); Basophils % 0.7; Eosinophils % 1.8; HCT 35.5 % (36.0-46.0); HGB 10.9 g/dL (11.2-15.7); Immature Grans % 1.8; Lymphocytes % 18.4; MCH 31.7 pg (27.0-33.0); MCHC 30.7 % (32.0-36.0); MCV 103 fL (80-95); MPV 8.4 fL (8.0-11.0); Monocytes % 7.8; Neutrophils % 69.5; Nucleated RBC 0.2 % (0.0-0.3); Platelet Count 369 10^3/uL (130-400); RBC 3.44 10^6/uL (3.93-5.22); RDW 14.5 % (11.7-14.6); RDW-SD 54.5 fL; WBC 11.21 10^3/uL (4.4-10.8)
[2021-12-04 06:57] LABS: Absolute Neutrophil Count 7.79 10^3/uL (1.2-6.7)
[2021-12-04 06:59] LABS: BE (Venous) 22 mmol/L (-2-3); HCO3 (Venous) 46 mmol/L (23-28); O2 Sat (Venous) 97 %; TCO2 (Venous) 48 mmol/l (24-29); pH (Venous) 7.46 (7.31-7.41); pO2 (Venous) 90 mmHg
[2021-12-04 07:02] LABS: pCO2 (Venous) 65 mmHg (41-51)
[2021-12-04 07:12] LABS: Anion Gap 0.2 mmol/L (3-11); BUN 16 mg/dL (7-18); CO2 42.8 mmol/L (21.0-32.0); Calcium 8.8 mg/dL (8.5-10.1); Chloride 98 mmol/L (98-107); Estimated GFR 59.49 (mL/min/1.73m2); Glucose 137 mg/dL (74-106); Potassium 3.6 mmol/L (3.5-5.1); Sodium 141 mmol/L (136-145)
[2021-12-04] MEDS: Amiodarone 200 MG TAB PO (08:02)
[2021-12-04] MEDS: Tolterodine 2 MG CAPCR 4 MG PO (08:02)
[2021-12-04] MEDS: Normal Saline Flush 10 ML SYR IVP (08:02)
[2021-12-04] MEDS: Apixaban 2.5 MG TAB PO ×2 (08:02→19:45)
[2021-12-04] MEDS: Ascorbic Acid 500 MG TAB PO ×2 (08:02→19:45)
[2021-12-04] MEDS: busPIRone 5 MG TAB PO ×3 (08:02→19:45)
[2021-12-04] MEDS: Citalopram 20 MG TAB PO (08:02)
[2021-12-04] MEDS: Ferrous Sulfate 325 MG TAB PO ×2 (08:02→19:45)
[2021-12-04] MEDS: Aspirin 81 MG CHEW PO (08:02)
[2021-12-04] MEDS: dilTIAZem 60 MG TAB PO ×3 (08:03→19:45)
[2021-12-04] MEDS: Potassium Chloride 20 MEQ TABCR 40 MEQ PO ×2 (08:17→19:45)
[2021-12-04] MEDS: Pantoprazole 20 MG TABCR PO ×2 (08:18→19:45)
[2021-12-04] MEDS: Acetaminophen 325 MG TAB PO (08:25)
[2021-12-04] MEDS: Tiotropium/Olodaterol 10 PUFF INHALER 2 PUFF IH (08:37)
[2021-12-04] MEDS: Insulin Aspart 300 UNITS/3 ML PEN SC ×3 (12:07→21:37)
--- NOTE | 2021-12-04 13:26 | PT.INTREAT ---
PT Notes Visit Reasons: Hypoxic Respiratory Failure,CHF Exacerbation,ANDREINA SUBJECTIVE: pt in recliner when approached for therapy this morning. pt?is pleasant and agreeable to participating in PT.? OBJECTIVE: ? PAIN: No c/o pain.? BED MOBILITY/TRANSFERS? Sit-stand: CGA? Stand-sit: CGA ? THEREX: Patient was instructed in a LE strengthening program, to include: seated marching, hip ab/ad, knee flexion/extension, ankle dorsi/plantar, inversion/eversion [id number], seated bilateral UE shoulder flexion/extension, abduaction/adduction, internal/external rotation, elbow flexion/extension, pronation/supination, wrist flexion/extension, radial/ulnar deviation [id number], sit to stand from room chair 5x1set, static standing 30secs x2.? ASSESSMENT:? Patient tolerated session well without complaint.? She requires seated rests after standing for 30secs due to limited activity tolerance. PLAN: Continue with global strengthening and general conditioning for improved mobility and activity tolerance. TREATMENT CODE/TIME: 25?minutes;? [id number] (11:25)
--- NOTE | 2021-12-04 13:46 | W.PM.PROGNOT ---
Date of Service Date of service: 12/04/21 Time of Service: 14:01 Assessment and Plan Assessment and plan (1) Acute on chronic respiratory failure with hypoxia and hypercapnia: Status: Acute Assessment and plan: Due to acute on chronic diastolic CHF. Lost IV access; had planned to stopped lasix drip today. Torsemide 40mg po BID. Continue BiPAP at night. Monitor I/O's and daily weights. Improving. (2) Acute on chronic diastolic CHF (congestive heart failure), NYHA class 1: Status: Acute Assessment and plan: As above. Last echo done in 12/2020. Echocardiogram ordered. (3) Morbid (severe) obesity with alveolar hypoventilation: Assessment and plan: Continue BiPAP at night (4) COPD (chronic obstructive pulmonary disease): Assessment and plan: Does not appear to be in acute exacerbation at this time. Continue current management with prn nebs stiolto (5) Diabetes mellitus: Assessment and plan: Basal bolus insulin (6) Hypokalemia: Status: Acute Assessment and plan: Replete and recheck in am. (7) Hypothyroidism: Status: Chronic Assessment and plan: TSH at goal. Continue levothyroxine 100 mcg daily. Qualifiers: Hypothyroidism type: unspecified Qualified Code(s): E03.9 - Hypothyroidism, unspecified (8) Chronic atrial fibrillation, unspecified: Assessment and plan: Continue amidoarone, apixaban. (9) DVT prophylaxis: Status: Acute Assessment and plan: on therapeutic apixaban (10) Discharge planning issues: Status: Acute Assessment and plan: DNR/DNI Continues to require hospitalization Subjective Subjective Patient reports: no new complaints, tolerating a regular diet and afebrile; denies nausea or vomiting Interval history since last seen: C/O dry mouth. Pulled out IV inadvertently. Exam Narrative Exam Narrative: General: Pleasant obese female who is sitting up in a chair with BIPAP in place. Asleep. Wakens readily. HEENT: sclera clear, MMM Heart: RRR, no murmur Lungs: Distant breath sounds. Crackles in bases. Abdomen: soft, nontender, nondistended Extremities: 2+ BLE woody edema, chronic venous stasis dermatitis. No UE edema. Objective Last Vital Signs Temp 37.3 C 12/04/21 07:34 Pulse 82 12/04/21 07:34 Resp 20 12/04/21 07:34 BP 117/65 12/04/21 07:34 Pulse Ox 90 L 12/04/21 07:34 Laboratory Results - last 24 hr 12/04/21 12/04/21 12/04/21 06:41 06:41 06:41 WBC 11.21 H RBC 3.44 L Hgb 10.9 L Hct 35.5 L MCV 103 H MCH 31.7 MCHC 30.7 L RDW 14.5 Plt Count 369 MPV 8.4 Immature Gran % 1.8 Neutrophils % 69.5 Lymphocytes % 18.4 Monocytes % 7.8 Eosinophils % 1.8 Basophils % 0.7 Nucleated RBC % 0.2 Absolute Neutrophils 7.79 H Absolute Lymphocytes 2.06 Absolute Monocytes 0.87 H Absolute Eosinophils 0.20 Absolute Basophils 0.08 VBG pH 7.46 H VBG pCO2 65 H* VBG pO2 90 VBG HCO3 46 H VBG Total CO2 48 H VBG O2 Saturation 97 VBG Base Excess 22 H Sodium 141 Potassium 3.6 Chloride 98 Carbon Dioxide 42.8 H Anion Gap 0.2 L BUN 16 Creatinine 1.0 Est GFR (CKD-EPI 2020) 59.49 Glucose 137 H Calcium 8.8 Magnesium 2.0
--- NOTE | 2021-12-04 16:03 | CMPROGNOTE_ITS ---
- If Service Date Differs Date of service: 12/04/21 Time of Service: 10:00 Care Management Progress Note RN Coordinator and RT felt that Marlen would do better using her personal Trilogy machine from the [facility]. CM contacted the [facility], and unfortunately [facility] does not allow the machine to leave their facility. CM notified RN Coordinator and RT.
[2021-12-04] MEDS: Torsemide 20 MG TAB 40 MG PO (16:13)
[2021-12-04] MEDS: Polyethylene Glycol 3350 17 GM PACKET PO (19:44)
[2021-12-04] MEDS: Insulin Glargine 300 UNITS/3 ML PEN 10 UNITS SC (21:37)
[2021-12-04] MEDS: LORazepam 0.5 MG TAB PO (22:37)
--- NOTE | 2021-12-04 22:47 | NUR.NOTE ---
despite education on the benefits of wearing BIPAP , patient is still refusing to wear device. she is currently on 3L of o2 sating 92%.
[2021-12-05 04:04] VITALS: BP 135/75; PULSE 74; RESP 22; TEMP 36.6; O2SAT 92
[2021-12-05 06:36] LABS: Anion Gap 2.3 mmol/L (3-11); BUN 15 mg/dL (7-18); CO2 40.7 mmol/L (21.0-32.0); Calcium 9.6 mg/dL (8.5-10.1); Chloride 98 mmol/L (98-107); Estimated GFR 59.49 (mL/min/1.73m2); Glucose 139 mg/dL (74-106); Potassium 4.3 mmol/L (3.5-5.1); Sodium 141 mmol/L (136-145)
[2021-12-05] MEDS: Levothyroxine 100 MCG TAB PO (06:45)
[2021-12-05 07:45] VITALS: BP 114/71; PULSE 83; RESP 22; TEMP 37.1; O2SAT 90
[2021-12-05] MEDS: Tiotropium/Olodaterol 10 PUFF INHALER 2 PUFF IH (07:48)
[2021-12-05 07:49] VITALS: RESP 15; O2SAT 92
[2021-12-05] MEDS: Polyethylene Glycol 3350 17 GM PACKET PO (08:30)
[2021-12-05] MEDS: Torsemide 20 MG TAB 40 MG PO (08:30)
[2021-12-05] MEDS: Tolterodine 2 MG CAPCR 4 MG PO (08:30)
[2021-12-05] MEDS: Pantoprazole 20 MG TABCR PO (08:31)
[2021-12-05] MEDS: dilTIAZem 60 MG TAB PO ×2 (08:31→12:50)
[2021-12-05] MEDS: Amiodarone 200 MG TAB PO (08:31)
[2021-12-05] MEDS: Aspirin 81 MG CHEW PO (08:31)
[2021-12-05] MEDS: Potassium Chloride 20 MEQ TABCR 40 MEQ PO (08:31)
[2021-12-05] MEDS: Ferrous Sulfate 325 MG TAB PO (08:31)
[2021-12-05] MEDS: Ascorbic Acid 500 MG TAB PO (08:31)
[2021-12-05] MEDS: Apixaban 2.5 MG TAB PO (08:31)
[2021-12-05] MEDS: Citalopram 20 MG TAB PO (08:31)
[2021-12-05] MEDS: busPIRone 5 MG TAB PO ×2 (08:31→12:50)
[2021-12-05] MEDS: Senna TAB 1 TAB PO (08:31)
[2021-12-05] MEDS: Bisacodyl 10 MG SUPP PR (08:31)
--- NOTE | 2021-12-05 09:07 | CMPROGNOTE_ITS ---
- If Service Date Differs Date of service: 12/05/21 Time of Service: 09:07 Care Management Progress Note S/O: An MRI and Echo is planned for this morning. She is medically cleared for discharge and will be returning to the [facility] this afternoon after testing. In addition Marlen will need to borrow a wheel chair and O2 tank for transportation. A: 71 year old female admitted to [facility] on 12/01/21 for Acute on chronic respiratory failure with hypoxemia, Acute CHF, Morbid (severe) obesity with alveolar hypoventilation P: Anticipate, Marlen will return to the [facility] when medically cleared by provider. She will follow up with her PCP and discharge plan of care as direct ed. She will be transported to the [facility] by [facility] wheelchair van coordinated by CM when ready. Palliative consult is ordered, to discuss goals of care. CM will continue to follow.
[2021-12-05] MEDS: Milk of Magnesia 30 ML CUP PO (10:10)
--- NOTE | 2021-12-05 10:26 | W.PALLCONSUL ---
Date of service: 12/05/21 Time of Service: 07:00 History of Present Illness History of Present Illness Chief Complaint: Hypoxia Narrative: From H and P History of Present Illness?Chief Complaint: Hypoxemia with Dyspnea at Rest?Narrative: This is a 71-year-old female patient from the [facility] who has chronic respiratory failure with morbid obesity and ANDREINA as well as CO2 retention at times and wearing BiPAP at night for ANDREINA who was having increased oxygen needs with confusion and dyspnea for 1 day.? She was confused at night prior to admission and was brought to the ED for evaluation.? She was found to have acute CHF and responded well to IV Lasix as well as BiPAP.? She was requiring more oxygen supplement than usual and her mental status did clear somewhat with improvement of her oxygenation.? She is not having any chest pain.? Her usual oxygen requirements are 1 to 2 L per nasal cannula and in the ED she was on BiPAP with O2.? The patient was not markedly elevated with a PCO2 of 73 and VBG showed a pH of 7.4.? She was not dry and her troponin was negative.? Her BNP was elevated and at that she did respond to IV Lasix.? Plans were to admit her for IV Lasix treatment aggressively while treating her chronic medical problems with a history of chronic atrial fibrillation on anticoagulation and diabetes.? At the time I interviewed the patient she was much more alert and comfortable with O2 nasal cannula off BiPAP with diuretics continuing IV. Interim Hx Marlen is a 71-year-old woman with morbid obesity, ANDREINA with CO2 retention on BiPAP, severe edema, ambulation problems. I have known her for several years and have seen her inpatient and also at the [facility]. She had was confused and dyspneic for a day prior to admission but states now she is doing much much better. She really wants to get back to the [facility] as soon as possible. She would like the catheter out as she feels like that is irritating to her. She had been on a Lasix drip but now that is stopped. Assessment and Plan Assessment and plan (1) Acute on chronic diastolic CHF (congestive heart failure), NYHA class 1: Status: Acute (2) Acute on chronic respiratory failure with hypoxia and hypercapnia: Status: Acute (3) Palliative care patient: Status: Acute Assessment and plan: Marlen did very well with the Lasix drip. She feels that she is now back to baseline and would like to have the bladder catheter removed. She would like to return to the [facility] as soon as possible. Overall she has done well, but with her chronic CHF and CO2 retention she has little reserve. She will go back to the [facility] and resume her previous Trilogy machine. Her diuretics will be adjusted by hospitalist. I did speak to Dr. Davidson about her 01/2020 MRI finding. He was considering doing the MRI while she was inpatient due to difficulty to have her return to the hospital for this. Her weight may preclude her from having this done. She has had numerous US studies imaging her legs in the recent past. Radiology may be able to shed some light as to whether or not an MRI needs to be pursued Review of Systems Narrative: Marlen finds a catheter irritating and would like to have this out. She has not ambulated much but wants to primarily get back to the [facility]. PFSH All Active Problems (Updated 12/06/21 @ 00:09 by MINGO SHANNON) Acute on chronic diastolic CHF (congestive heart failure), NYHA class 1 (Acute) Acute on chronic respiratory failure with hypoxia and hypercapnia (Acute) Onychomycosis (Acute) Anterior epistaxis (Acute) Pulmonary nodule (Acute) Morbid obesity (Acute) Vitamin D deficiency (Acute) MRSA (methicillin resistant staph aureus) culture positive (Acute) Hypoxia (Acute) Hypothyroidism (Chronic) Bilateral cellulitis of lower leg (Acute) Localized swelling of both lower legs (Acute) On amiodarone therapy (Acute) Palliative care patient (Acute) Cellulitis of left lower leg (Acute) Plaque psoriasis (Acute) GERD (gastroesophageal reflux disease) (Chronic) Hypercholesterolemia (Acute) Obesity (Chronic) CHF (congestive heart failure) (Chronic) Family history unobtainable due to patient's condition (Acute) Medical History Acute and chronic respiratory failure with hypercapnia Acute exacerbation of chronic obstructive pulmonary disease Acute on chronic respiratory failure with hypoxia and hypercapnia Acute respiratory distress Acute respiratory distress Altered mental status Arthritis Atrial fibrillation Cellulitis bilateral lower extremities Cellulitis CHF (congestive heart failure) Chronic atrial fibrillation, unspecified Chronic respiratory failure with hypoxia COPD (chronic obstructive pulmonary disease) Diabetes mellitus HCAP (healthcare-associated pneumonia) HCAP (healthcare-associated pneumonia) HCAP (healthcare-associated pneumonia) Hypercarbia Methicillin susceptible Staphylococcus aureus infection as the cause of diseases classified elsewhere Mood disorder Morbid (severe) obesity with alveolar hypoventilation Muscle weakness (generalized) Obesity Pneumonia Sepsis Sepsis Streptococcal bacteremia Toxic metabolic encephalopathy Type 2 diabetes mellitus Type 2 diabetes mellitus with hyperglycemia Surgical History H/O hand surgery right index finger removal of tendon sheath ganglion H/O: hysterectomy History of carpal tunnel surgery of right wrist History of excision of lesion abdominal cyst removed S/P appendectomy Family History Father Heart disease 2 [place], at 62 Mother Heart disease Social History Smoking/Tobacco Use Status: Former Tobacco Use Smoking risk assessment performed?: Yes Alcohol Intake: never Drug use: Never Substance use type: does not use Do you feel safe at home: Yes Do you feel safe in your relationship?: Yes Exam Narrative Exam Narrative: Cooperative 71-year-old woman with morbid obesity. Her mental status appears to be at her baseline. Breathing is good with no wheezing. She is talking in complete sentences. Her heart is regular. Abdomen obese nontender. Her legs have 4+ edema. Again this is her baseline. Results Last Vital Signs Temp 98.8 F 12/05/21 07:45 Pulse 83 12/05/21 07:45 Resp 22 12/05/21 07:45 BP 114/71 12/05/21 07:45 Pulse Ox 92 12/05/21 07:49 Labs Result diagrams: 12/04/21 06:41 12/05/21 05:56 Labs: Laboratory Results - last 24 hr 12/05/21 05:56 Sodium 141 Potassium 4.3 Chloride 98 Carbon Dioxide 40.7 H Anion Gap 2.3 L BUN 15 Creatinine 1.0 Est GFR (CKD-EPI 2020) 59.49 Glucose 139 H Calcium 9.6 Imaging Additional studies: MRI 01/19/20 EXAM: ? MR LOWER EXTREMITY LT WO/W CLINICAL HISTORY:? suspected osteomyelitis tib/fib. TECHNIQUE:? Multiplanar multisequence MRI was performed. COMPARISON:? No exams were available for comparison FINDINGS: MR examination the lower extremity was performed with multiplanar imaging including pre and post contrast imaging.? Patient reportedly has suspected osteomyelitis of the mid leg. Note is made of an apparent bony defect seen on a couple of images at the extreme superior portion of the imaging field which appears to be associated with the posterior tibia near the posterior cruciate ligament attachment, correlation requested regarding any acute injury in this region. There is very prominent cellular marrow to the level of the distal tibial diaphysis, in this age group the possibility of marrow reconversion or a malignant marrow process would have to be considered, please correlate clinically. No cortical signal abnormality seen.? No enhancing lesion identified in the bone or soft tissues.? No subcutaneous or deep tissue abscess.? Unremarkable muscular and tendinous signal throughout. IMPRESSION: No evidence of osteomyelitis at this time.? Prominent red marrow in the distal femur and proximal 2/3 of the tibia, question marrow reconversion or malignant process, please correlate clinically. Possible injury of the posterior aspect of the tibia, uncertain age, please correlate clinically, knee CT or radiographs may be considered for further evaluation if clinically indicated. Imaging Studies: Echo 12/05 Conclusion Borderline concentric left ventricular hypertrophy.? Estimated ejection fraction is 60%.? Wall motion is normal Normal right ventricular size and systolic function Both atria are normal in size The aortic valve is trileaflet and moderately calcified with mild aortic stenosis.? Peak gradient is 32, mean 18 mmHg.? Calculated aortic valve area is 1.84 cm?? Mitral annular calcification.? Trace mitral regurgitation Normal tricuspid valve with trace regurgitation.? Estimated right ventricular systolic pressure is 29 mmHg Mildly dilated ascending aorta measuring 3.57 cm
--- NOTE | 2021-12-05 10:45 | PT.INTREAT ---
Date of service: 12/05/21 Time of Service: 10:02 PT Notes Visit Reasons: Hypoxic Respiratory Failure,CHF Exacerbation,ANDREINA Inpatient Physical Therapy Treatment Note [facility] Date: 12/05/2021 PRECAUTIONS: Activity as tolerated SUBJECTIVE: Marlen is pleasant and agreeable to participating in PT. She reports that she has not had a recent bowel movement. She also reports that she has not done any walking since she has been here, but walks daily at the [facility], where she resides. OBJECTIVE: PAIN: No c/o pain BED MOBILITY/TRANSFERS Sit-stand: I Stand-sit: I GAIT Assistive Device: Bariatric FWW Weight bearing: Full Assist: Supervision Distance: 75' x2 Deviation: Unremarkable gait, seated rest x1, 4L supplemental O2 ASSESSMENT: Patient tolerated session well, although with brief complaint of increased fatigue with activity. She tolerated the addition of gait training with FWW support and supervision and a seated rest due to fatigue. She would benefit from continued general conditioning for improved activity tolerance. PLAN: Patient to discharge back to the [facility] later today, per provider. TREATMENT CODE/TIME: 23 minutes; [id number] x2 (10:02)
--- NOTE | 2021-12-05 11:12 | RESPIRATORY ---
Patient stated home O2 is continously 2LPM, uses NHV at [facility] but unsure on which machine she's on. Previous shift RT stated has Trilogy with 4LPM bled-in at [facility].
--- NOTE | 2021-12-05 11:12 | PDOC.CMDIS ---
- If Service Date Differs Date of service: 12/05/21 Time of Service: 15:00 LACE Index Scoring Tool - Questions: Length of Stay (in days): 4 - 6 Acuity (Admit via E.D.?): Yes Comorbidities: Diabetes w/o Complication, Congestive Heart Failure, Chronic Pulmonary Disease E.D. Visits: 7 - Answers: Total Score: 16 Risk of Readmission: High Risk Care Management Discharge Reason for Hospitalization: Acute on chronic respiratory failure with hypoxemia, Acute CHF, Morbid (severe) obesity with alveolar hypoventilation Discharge Plan: Marlen is discharged from [facility] via [facility] W/C van. An O2 tank and wheelchair are borrowed from [facility] for transportation. Marlen will follow up with community providers and discharge plan of care as prescribed. Marlen has a follow up appointment with Dr. Kumar on 12/09/21 as scheduled. Patient/Family Education Needs: Review discharge instructions, limitations and plan of care; discuss Ask Me Three and self management needs. Services Needed at Discharge: Intermediate Facility ([facility]), Transportation (Via [facility] W/C Van)
--- NOTE | 2021-12-05 11:38 | W.PM.DS.N ---
Date of service: 12/05/21 Time of Service: 11:38 DS: Diagnosis Discharge Diagnosis (1) Acute on chronic respiratory failure with hypoxia and hypercapnia: Status: Acute Asessment and Plan: Patient uses a Trilogy device at the [facility]. This was not sent with her. She did not tolerate the BiPAP for long periods of time but used in short bursts. Her repiratory status improved and her supplemental O2 needs approached her baseline need. (2) Acute on chronic diastolic CHF (congestive heart failure), NYHA class 1: Status: Acute Asessment and Plan: She was placed on a lasix drip with good results, then changed to oral torsemide 40mg po BID. Continue a low Na diet and monitor for excessive volume of fluid intake. (3) Morbid (severe) obesity with alveolar hypoventilation: Asessment and Plan: Cont Trilogy use. (4) COPD (chronic obstructive pulmonary disease): Asessment and Plan: No exacerbation Cont Stiolto Respimat and prn albuterol. (5) Diabetes mellitus: Asessment and Plan: Cont basal/bolus insulin, Trulicity Carb controlled diet. (6) Hypokalemia: Status: Acute Asessment and Plan: Repleted. (7) Hypothyroidism: Status: Chronic Asessment and Plan: Cont usual replacement tx. (8) Chronic atrial fibrillation, unspecified: Asessment and Plan: Rate controlled. Cont diltiazem and amiodarone for rate control. Cont Apixaban for AC. Discharge Plan Disposition Patient Disposition: L[facility] III [facility] Condition: Improving Discharge Details Reason For Visit: Hypoxic Respiratory Failure,CHF Exacerbation,ANDREINA Admit Date/Time: 12/01/21 18:39 Admit Provider: Shaka Sandoval Attending Provider: Shaka Sandoval Primary Care Provider: Evi Cloud Hospital Course Hospital Course: This is a 71-year-old female patient from the [facility] who has chronic respiratory failure with morbid obesity and ANDREINA as well as CO2 retention at times and wearing BiPAP at night for ANDREINA who was having increased oxygen needs with confusion and dyspnea for 1 day.? She was confused at night prior to admission and was brought to the ED for evaluation.? She was found to have acute CHF and responded well to IV Lasix as well as BiPAP.? She was requiring more oxygen supplement than usual and her mental status did clear somewhat with improvement of her oxygenation.? She did not have any chest pain.? Her usual oxygen requirements are 1 to 2 L per nasal cannula and in the ED she was on BiPAP with O2.? PCO2 of 73 and VBG showed a pH of 7.4.? She was not dry and her troponin was negative.? Her BNP was elevated and at that she did respond to IV Lasix.? Plans were to admit her for IV Lasix treatment aggressively while treating her chronic medical problems with a history of chronic atrial fibrillation on anticoagulation and diabetes.? At the time admitting hospitalist interviewed the patient she was much more alert and comfortable with O2 nasal cannula off BiPAP with diuretics continuing IV. See Diagnosis She will follow up with provider within the next week. Home Meds and New Rx's Prescriptions: New torsemide 20 mg Tablet 40 mg PO BID DIURETIC Qty: 0 0RF Continued pantoprazole 20 mg tablet,delayed release (DR/EC) 20 mg PO BID metformin 500 mg tablet 750 mg PO TID Stiolto Respimat 2.5-2.5 mcg/actuation mist 2 puff inhalation DAILY Qty: 4 12RF diltiazem HCl [DILT-XR] 240 mg capsule,ext.rel 24h degradable 240 mg PO QAM albuterol sulfate 90 mcg/actuation HFA aerosol inhaler 2 inh INHALATION .Q4H,PRN PRN acetaminophen [Tylenol] 325 mg Tablet 650 mg PO Q4H PRN epinephrine 0.3 mg/0.3 mL Auto-Injector 0.3 mg IM PRN PRN amiodarone 200 mg tablet 200 mg PO DAILY tolterodine 4 mg capsule,extended release 24hr 4 mg PO DAILY AM potassium chloride 10 mEq tablet extended release 10 meq PO DAILY AM ascorbic acid (vitamin C) [Vitamin C] 500 mg Tablet 500 mg PO BID insulin glargine [Lantus Solostar U-100 Insulin] 100 unit/mL (3 mL) Insulin Pen 20 unit SUBCUT HS Qty: 0 0RF levothyroxine 100 mcg Tablet 100 mcg PO HS polyethylene glycol 3350 [Miralax] 17 gram/dose Powder 17 g PO DAILY insulin aspart U-100 100 unit/mL (3 mL) Insulin Pen 1 sliding scale dose SUBCUT USEASDIRECTD Rx Instructions: <110=0 units, 111-150=6 units, 151-200=10 units,201-250=12units,251-300=15 units, 301-150=18units, >350=20units and call physician Trulicity 1.5 mg/0.5 mL pen injector 1.5 mg SUBCUT QWEEK aspirin 81 mg Tablet,Chewable 81 mg PO DAILY citalopram 20 mg Tablet 20 mg PO DAILY vitamin B complex Tablet 1 tab PO DAILY ergocalciferol (vitamin D2) 1,250 mcg (50,000 unit) Capsule 1,250 mcg PO QWEEK Rx Instructions: last dose to be 05/30/21 buspirone 5 mg Tablet 5 mg PO TID Deep Sea Nasal 0.65 % Aerosol,Ridge 4 spray NS QID PRN PRNQty: 44 0RF apixaban 2.5 mg tablet 2.5 mg PO BID Qty: 20 0RF ferrous sulfate 325 mg (65 mg iron) Tablet 325 mg PO BID tramadol 100 mg tablet 50 mg PO DAILY PRN Discontinued furosemide [Lasix] 20 mg tablet 80 mg PO BID Rx Instructions: taken at 1400 No Action (DME) BiPap See Rx Instructions .Route .MEDSUPPLY Qty: 1 0RF Rx Instructions: See internal note gabapentin 300 mg Capsule 300 mg PO HS Discharge Instructions Stand Alone Forms: Nursing Discharge Form Activity:: Activity as Tolerated Equipment/Supplies:: No Equipment Needed Diet:: Carb controlled, low Na Discharge Orders Discharge Orders: Discharge Order (Routine); Ordered 12/05/21 Ordered By: Navin Davidson Discharge Data Discharge Date/Time-TO BE ENTERED AT DEPARTURE: 12/05/21 14:17 DS: Summary Time Spent with Patient providing and/or coordinating discharge services: Greater than 30 minutes Status at Discharge Functional status at discharge: uses cane/walker Overall status at discharge: patient is progressing back to baseline Mental Status: mental status grossly normal Speech and Movement: speech and movement normal Mood: congruent mood Affect: normal affect Exam Narrative Exam Narrative: General: Pleasant obese female who is sitting up in a chair. Alert and conversant. HEENT: sclera clear, MMM Heart: RRR, no murmur Lungs: Distant breath sounds. Crackles in bases. Abdomen: soft, nontender, nondistended Extremities: 2+ BLE woody edema, chronic venous stasis dermatitis. No UE edema. Psych Mental Status: mental status grossly normal Speech and Movement: speech and movement normal Mood: congruent mood Affect: normal affect DS: Data Vitals/I&O Vitals and I&O: Vital Signs Temperature 37.1 C 12/05/21 07:45 Temperature Source Tympanic 12/05/21 07:45 Pulse 83 12/05/21 07:45 Pulse Rhythm Regular 12/05/21 08:30 Pulse 84 12/01/21 15:31 Respiratory Rate 22 12/05/21 07:45 Respiratory Effort 12/05/21 08:30 Respiratory Depth Normal 12/05/21 08:30 Respiratory Pattern Normal 12/05/21 08:30 Blood Pressure 114/71 12/05/21 07:45 Blood Pressure Mean 64 12/01/21 18:45 Blood Pressure Position Supine 12/01/21 12:25 Pulse Oximetry 92 12/05/21 07:49 Oxygen Delivery Method Nasal Cannula 12/05/21 07:49 Oxygen Flow Rate 3.5 12/05/21 07:49 Fraction of Inspired Oxygen (FIO2) 35 12/05/21 07:49 Pain Level 0 12/05/21 04:04 Comment 12/04/21 11:15 Intake & Output 12/04/21 12/04/21 12/05/21 11:59 23:59 11:59 Intake Total 185.5 / 665.5 480 / 665.5 Output Total 1525 / 3125 1600 / 3125 600 / 600 Balance -1339.5 / -2459.5 -1120 / -2459.5 -600 / -600 Weight 138.4 kg 138 kg Intake: IV 185.5 / 185.5 Oral 480 / 480 Output: Urine 1525 / 3125 1600 / 3125 600 / 600 Other: Urine Color Yellow Yellow Yellow Urine Appearance Cloudy Cloudy Cloudy Comment blood tinged urine in kebede catheter. catheter assessed. no reports of pain. reports of urinary pressure. bladder scan for 0 mLs. Voiding Methods Bedside Commode Data Completed and Pending Labs on day of discharge: Labs from last 24 hours 12/05/21 05:56 Sodium 141 Potassium 4.3 Chloride 98 Carbon Dioxide 40.7 H Anion Gap 2.3 L BUN 15 Creatinine 1.0 Est GFR (CKD-EPI 2020) 59.49 Glucose 139 H Calcium 9.6 PFSH All Active Problems Acute on chronic diastolic CHF (congestive heart failure), NYHA class 1 (Acute) Acute on chronic respiratory failure with hypoxia and hypercapnia (Acute) Discharge planning issues (Acute) DVT prophylaxis (Acute) Acute CHF (congestive heart failure) (Acute) Acute on chronic respiratory failure with hypoxemia (Acute) Hypoxia (Acute) Onychomycosis (Acute) Anterior epistaxis (Acute) Pulmonary nodule (Acute) Morbid obesity (Acute) Vitamin D deficiency (Acute) MRSA (methicillin resistant staph aureus) culture positive (Acute) Hypoxia (Acute) Hypokalemia (Acute) Hypothyroidism (Chronic) Bilateral cellulitis of lower leg (Acute) Localized swelling of both lower legs (Acute) On amiodarone therapy (Acute) Palliative care patient (Acute) Cellulitis of left lower leg (Acute) Plaque psoriasis (Acute) GERD (gastroesophageal reflux disease) (Chronic) Hypercholesterolemia (Acute) Obesity (Chronic) CHF (congestive heart failure) (Chronic) Family history unobtainable due to patient's condition (Acute) Medical History Acute and chronic respiratory failure with hypercapnia Acute exacerbation of chronic obstructive pulmonary disease Acute on chronic respiratory failure with hypoxia and hypercapnia Acute respiratory distress Acute respiratory distress Altered mental status Arthritis Atrial fibrillation Cellulitis bilateral lower extremities Cellulitis CHF (congestive heart failure) Chronic atrial fibrillation, unspecified Chronic respiratory failure with hypoxia COPD (chronic obstructive pulmonary disease) Diabetes mellitus HCAP (healthcare-associated pneumonia) HCAP (healthcare-associated pneumonia) HCAP (healthcare-associated pneumonia) Hypercarbia Methicillin susceptible Staphylococcus aureus infection as the cause of diseases classified elsewhere Mood disorder Morbid (severe) obesity with alveolar hypoventilation Muscle weakness (generalized) Obesity Pneumonia Sepsis Sepsis Streptococcal bacteremia Toxic metabolic encephalopathy Type 2 diabetes mellitus Type 2 diabetes mellitus with hyperglycemia Surgical History H/O hand surgery right index finger removal of tendon sheath ganglion H/O: hysterectomy History of carpal tunnel surgery of right wrist History of excision of lesion abdominal cyst removed S/P appendectomy Family History Father Heart disease 2 [place], at 62 Mother Heart disease Social History Smoking/Tobacco Use Status: Former Tobacco Use Smoking risk assessment performed?: Yes Alcohol Intake: never Drug use: Never Substance use type: does not use Do you feel safe at home: Yes Do you feel safe in your relationship?: Yes
--- NOTE | 2021-12-05 11:50 | DI.US_ITS ---
APPROVED REPORT EXAM: Comprehensive 2D, Doppler, and color-flow Echocardiogram Patient Location: In-Patient Room/Bed: [address] Treater: Katiana Mcpherson RDCS (AE) Indications: CHF Other Information Study Quality: Fair. Technically limited study due to body habitus, inability to position patient exa m done supine bedside. Conclusion Borderline concentric left ventricular hypertrophy. Estimated ejection fraction is 60%. Wall motion is normal Normal right ventricular size and systolic function Both atria are normal in size The aortic valve is trileaflet and moderately calcified with mild aortic stenosis. Peak gradient is 32, mean 18 mmHg. Calculated aortic valve area is 1.84 cm?? Mitral annular calcification. Trace mitral regurgitation Normal tricuspid valve with trace regurgitation. Estimated right ventricular systolic pressure is 29 mmHg Mildly dilated ascending aorta measuring 3.57 cm Wall motion Left Ventricle The left ventricle is normal size. The left ventricular systolic function is normal. The left ventric ular ejection fraction is within the normal range. Borderline concentric left ventricular hypertrophy . There is normal LV segmental wall motion. There is no ventricular septal defect visualized. LVEF is 60%. Right Ventricle Right ventricle is grossly normal in size. Right ventricular systolic function is grossly normal. The RVSP is 29.4 mmHg. Atria The left atrium size is normal. The right atrium size is normal. The interatrial septum is intact wit h no evidence for an atrial septal defect. Aortic Valve Aortic valve is moderately calcified. Aortic valve is trileaflet. Mild aortic stenosis. Peak aortic v alve gradient is32.2mmHg. Highest mean aortic valve gradient is 17.6mmHg._ Calculated KAT by the cont inuity equation is 1.8cm2. No aortic regurgitation is present. Mitral Valve Moderate mitral annular calcification. No evidence of mitral valve stenosis. Trace mitral regurgitati on. Tricuspid Valve The tricuspid valve is normal in structure. There is no tricuspid valve stenosis. Trace tricuspid reg urgitation. Pulmonic Valve The pulmonary valve is normal in structure. There is no pulmonic valvular stenosis. There is no pulmo jia valvular regurgitation. Great Vessels The aortic root is normal in size. The ascending aorta is mildly dilated.3.57 cm Aortic arch is not w ell visualized. IVC is normal in size and collapses >50% with inspiration. Pericardium There is no pericardial effusion. 2D Dimensions IVSD d PLAX 1.04 cm F: 0.6-1.0 LV Vol A2C d MOD 163.2 mL LVPW d PLAX 1.09 cm F: 0.6 - 1.0 LV Vol A4C d MOD 126.4 mL LVID d PLAX 5.01 cm F: 3.8 - 5.2 LV EF A4C MOD 60.6 % LVDs 3.50 cm F: 2.2 - 3.5 LV EF A2C MOD 58.3 % Ao Root d 2.74 cm F: 2.7 - 3.3 LV EF Biplane MOD 60.6 % RA Area A4C 15.96 cm2 SV 89.44 mL RA Vol/ BSA A4C s A-L 15.4 mL/m2 SV Index 37.79 mL/m2 Ao Asc Diam d 3.57 cm F: 2.3 - 3.1 LV EF Teichholz 57.2 % LVEF (Villavicencio's) 60.55 % F: 54 - 74 LV Volume 105.06 mL F: 46 - 106 LV Volume Index 44.51 mL/m2 F: 29 - 61 LV Vol Biplane MOD 147.7 mL FS 30.15 % M-Mode TAPSE 3.31 cm (M/F) >1.7 LV Diastology MV E' medial 0.091 (>0.07 m/s) E/A Ratio 0.7 LV E/e MED 12.00 (<14) MV E Vmax 1.10 (0.4-1.3 m/s) MV E' lateral 0.083 (>0.1 m/s) MV A Vmax 1.60 (0.4-1.3 m/s) LV E/e LAT 13.15 (<14) MV E/A Ratio 0.68 MV E/E' medial 12.00 MV E/E' lateral 13.18 Aortic Valve LVOT Area 2.96 cm2 AoV Area Vmax 1.84 cm2 LVOT Vmax 1.76 m/s AoV Area/ BSA (Vmax) 0.78 cm2/m2 LVOT Mean Hollis. 1.15 m/s KAT Mean Hollis. 1.71 cm2 LVOT Peak Grad 12.4 mmHg KAT Mean Hollis. Index 0.72 cm2/m2 LVOT Mean Grad 6.3 mmHg LVOT VTI 0.351 m LVOT Diam s 1.90 cm AoV Vmax 2.84 m/s Velocity Ratio 0.61 AoV Mean Hollis. 1.99 m/s AoV Peak Grad 32.2 mmHg LVOT SV 104.06 mL AoV Mean Grad 17.6 mmHg AoV VTI 0.516 m AoV Area VTI 2.02 cm2 AoV Area/ BSA (VTI) 0.85 cm/m2 Mitral Valve MV DT 431 (160-240 msec) MV PHT 125 msec MV Area PHT 1.76 cm2 MV VTI 0.444 m MV Area VTI 2.34 (4.0-6.0 cm2) Pulmonary Valve PV Vmax 1.24 (0.5-1.5 m/s) RVOT Peak Gr. 4.35 mmHg PV Peak Grad 6.2 mmHg RVOT Mean Gr. 2.15 mmHg PV Mean Grad 3.6 mmHg RVOT VTI 0.174 m PV VTI 0.232 m RVOT Vmax 1.04 m/s Tricuspid Valve TR Peak Grad 26.3 mmHg TR Vmax 2.57 m/s RA Pressure 3.00 mmHg RVSP (TR) 29.4 mmHg
[2021-12-05 12:43] VITALS: BP 148/80; PULSE 85; RESP 20; TEMP 37; O2SAT 93
--- NOTE | 2021-12-05 13:32 | NUR.NOTE ---
Nursing Note: This RN called [facility] to give report. They have no questions. Patient being sent with an [facility] wheelchair number [phone] and a [facility] oxygen tank.
--- NOTE | 2021-12-09 10:21 | PT.INDS ---
PT Notes Visit Reasons: Hypoxic Respiratory Failure,CHF Exacerbation,ANDREINA Physical Therapy Inpatient Discharge Summary Treatment Dates: 12/03/21 - 12/05/21 Referring Doctor: Tawnya Mayfield MD PT Orders: PT CONSULT: Limited Ability Precautions: Fall. Standard. This document serves as a summary of care. No PT services were provided on this date. Patient Profile/Admitting Diagnosis: Marlen is 71 yo female that presented to the ER on 12/01/21 for shortness of breath and needs for increased oxygen. She participated in 3 PT sessions over the course of 3 days, with improvements in mobility and activity tolerance. Was discharged back to the [facility] 12/05/21. PMHX: See EMR Social History/Home Situation: ?Resident of the [facility]. Daughter, Karlie lives locally and is supportive.?Needs assistance with her ADLs which is provided by staff at the [facility]. She reports sleeping in recliner and has CPAP. On 2L O2 at baseline. Equipment Owned/DME: FWW, wheelchair Subjective: none obtained Objective: ROM: Right Upper Extremity: Shoulder Flexion WFL. Shoulder abduction WFL. Elbow flexion WFL. Wrist flexion WFL. Opening and closing of hand WFL. Left Upper Extremity: Shoulder Flexion WFL. Shoulder abduction WFL. Elbow flexion WFL. Wrist flexion WFL. Opening and closing of hand WFL. Right Lower Extremity: Hip flexion Mild. Hip abduction WFL. Knee flexion WFL. Ankle dorsiflexion WFL. Ankle plantarflexion WFL. Left Lower Extremity: Hip flexion Mild. Hip abduction WFL. Knee flexion WFL. Ankle dorsiflexion WFL. Ankle plantarflexion WFL. Strength: Right Upper Extremity: Shoulder flexors 5-/5. Shoulder abductors 4+/5. Elbow flexors 5/5. Elbow extensors 5/5. Stockroom Coordinator strong. Left Upper Extremity: Shoulder flexors 5/5. Shoulder abductors 5/5. Elbow flexors 5/5. Elbow extensors 5/5. Stockroom Coordinator strong. Right Lower Extremity: Hip flexors 4+/5. Knee flexors 5/5. Knee extensors 5/5. Ankle dorsiflexors 5/5. Ankle plantarflexors 5/5. Left Lower Extremity: Hip flexors 4+/5. Knee flexors 5/5. Knee extensors 5/5. Ankle dorsiflexors 5/5. Ankle plantarflexors 5/5. Sensation: Intact as to pain and pressure on bilateral lower extremities. BED MOBILITY/TRANSFERS? Sit-stand: I? Stand-sit: I ? GAIT? Assistive Device: Bariatric FWW? Weight bearing: Full Assist: Supervision ? Distance:? 75' x2 ? Deviation: Unremarkable gait, seated rest x1, 4L supplemental O2 Balance: Static Sitting: Normal Dynamic Sitting: Normal Static Standing: Good Dynamic Standing: Fair Assessment: Patient presented with clinical signs and symptoms consistent with current/admitting diagnoses that have resulted to mobility limitations, gait instability, generalized weakness, and impairment of motor control. She participated in 3 PT sessions over the course of 3 days, with improvements in mobility and activity tolerance. She requires continued PT intervention to allow for return to baseline level of function, best achieved in SNF setting, as she is not safe for community ambulation. Was discharged back to the [facility] 12/05/21. Goals: Goals x1 week 1. Sit-Stand: independent (MET) 2. Stand-Sit: independent (MET) 3. Bed-Chair: independent (MET) 4. Chair-Bed: independent (MET) 5. Independent gait on level surface with use of least restrictive device for at least 100 feet without report of pain nor dyspnea (PROGRESSING TOWARD) 6. Independent with home exercise program (MET) Plan of Care/Treatment Plan: Discharge to SNF 12/05/21. Discharge Plan DISCHARGE RECOMMENDATIONS: Return to [facility] for continued rehabilitation TREATMENT CODE/TIME: none Thank you for the opportunity to participate in the care of this patient. Lisette Monreal, PT, DPT [facility] [place], [place]
== END 2021-12-05 14:17 | disposition designated cancer center or children's hospital (05) | DRG 291 ==
LOC: ER 19:41 → MS 20:04
PROVIDERS: Family Medicine; Internal Medicine; Admitting Provider Family Medicine; Emergency Provider Emergency Medicine; PCP Family Medicine; Visit Provider Family Medicine
DX: I50.33 Acute on chronic diastolic (congestive) heart failure (principal); J96.21 Acute and chronic respiratory failure with hypoxia; J96.22 Acute and chronic respiratory failure with hypercapnia; E66.2 Morbid (severe) obesity with alveolar hypoventilation; Z68.43 Body mass index [BMI] 50.0-59.9, adult; I48.20 Chronic atrial fibrillation, unspecified; Z66 Do not resuscitate; J44.9 Chronic obstructive pulmonary disease, unspecified; E11.9 Type 2 diabetes mellitus without complications; E87.6 Hypokalemia; E03.9 Hypothyroidism, unspecified; R91.1 Solitary pulmonary nodule; E55.9 Vitamin D deficiency, unspecified; K21.9 Gastro-esophageal reflux disease without esophagitis; E78.00 Pure hypercholesterolemia, unspecified; L40.0 Psoriasis vulgaris
CPT/HCPCS: 36415; 51702; 80048; 80053; 82805; 87637; 93005; 93306; 94640; 96365; 96366; 96375; 97161; 97530; 99284; 99285; 71045; 83735; 83880; 84443; 84484; 85025; 93010; 94660; 99223; 99232; 99239; J1940; J2930; J3480; J7620

== ENCOUNTER 2021-12-08 15:04 | Outpatient (REF) | payer MEDICARE, MEDICAID, SELFPAY ==
[2021-12-08 15:13] LABS: Abs Immature Grans 0.19 10^3/uL (0.0-0.06); Absolute Basophil Count 0.09 10^3/uL (0.0-0.2); Absolute Eosinophil Count 0.56 10^3/uL (0.0-0.7); Absolute Lymphocyte Count 2.02 10^3/uL (1.2-3.4); Absolute Monocyte Count 0.84 10^3/uL (0.1-0.8); Basophils % 0.7; Eosinophils % 4.5; HGB 12.1 g/dL (11.2-15.7); Immature Grans % 1.5; Lymphocytes % 16.2; MCH 31.6 pg (27.0-33.0); MCHC 30.3 % (32.0-36.0); MCV 104 fL (80-95); MPV 9.1 fL (8.0-11.0); Monocytes % 6.7; Neutrophils % 70.4; Platelet Count 384 10^3/uL (130-400); RBC 3.83 10^6/uL (3.93-5.22); RDW 14.8 % (11.7-14.6); WBC 12.48 10^3/uL (4.4-10.8)
[2021-12-08 15:14] LABS: Absolute Neutrophil Count 8.79 10^3/uL (1.2-6.7)
[2021-12-08 15:35] LABS: ALT 17 U/L (14-59); AST 20 U/L (15-37); Albumin 3.2 g/dL (3.4-5.0); Alkaline Phosphatase 83 U/L (46-116); Anion Gap 3.3 mmol/L (3-11); BUN 14 mg/dL (7-18); Bilirubin, Total 0.2 mg/dL (0.2-1.0); CO2 41.7 mmol/L (21.0-32.0); CREATININE 1.1 mg/dL (0.55-1.02); Calcium 9.2 mg/dL (8.5-10.1); Chloride 96 mmol/L (98-107); Estimated GFR 53.06 (mL/min/1.73m2); Glucose 134 mg/dL (74-106); NT-proBNP 134 pg/mL (<300); Potassium 3.9 mmol/L (3.5-5.1); Sodium 141 mmol/L (136-145); Total Protein 6.6 g/dL (6.4-8.2)
== END 2021-12-08 15:05 | disposition home or self-care (01) ==
LOC: LBN 15:04
PROVIDERS: PCP Family Medicine; Visit Provider Nurse Practitioner Gerontology
DX: R68.89 Other general symptoms and signs (principal); R63.5 Abnormal weight gain
CPT/HCPCS: 80053; 83880; 85025

== ENCOUNTER 2021-12-13 16:42 | Emergency (ER) | payer MEDICARE, MEDICAID, SELFPAY ==
[2021-12-13 17:03] VITALS: BP 123/47; PULSE 83; RESP 20; O2SAT 99
--- NOTE | 2021-12-13 17:15 | DI.CT_ITS ---
Exam(s) CT HEAD WO EXAM: CT HEAD WO CLINICAL HISTORY: fall, head pain. TECHNIQUE: Imaging Protocol: Axial computed tomography images with coronal and sagittal reformatted images were created and reviewed COMPARISON: CT CT CHEST/ABD/PEL W from 01/14/2020 FINDINGS: Ventricles and Extra axial spaces: Normal in size and morphology for the patient's age. Hemorrhage: None. Cerebral parenchyma: Mild white matter changes consistent with small vessel disease. Midline shift: None. Brainstem/Cerebellum: Normal. Calvarium: Normal. Visualized Paranasal sinuses/Mastoids: Clear. Soft Tissues: Mild left posterior parietal scalp swelling. IMPRESSION: No acute intracranial process. RADIATION DOSE DELIVERED: 884.25mGy.cm Total DLP DATA REPOSITORY: All CT scans at this facility are submitted to the National Radiology Data Registry (NRDR) Dose Index Registry (DIR) with the [employer] (ACR). RADIATION OPTIMIZATION: All CT scans at this facility use at least one of these dose optimization te chniques: automated exposure control; mA and/or kV adjustment per patient size (includes targeted exa ms where dose is matched to clinical indication); or iterative reconstruction.
--- NOTE | 2021-12-13 17:27 | ED.GENADUL_ITS ---
Discharge Plan Disposition Patient Disposition: HOME Condition: Stable Discharge Details Clinical Impression: Blunt head trauma Primary Care Provider: Evi Cloud ED Provider: Andrew England Home Meds and New Rx's Prescriptions: Continued pantoprazole 20 mg tablet,delayed release (DR/EC) 20 mg PO BID metformin 500 mg tablet 750 mg PO TID Rx Instructions: 1000mg BID Stiolto Respimat 2.5-2.5 mcg/actuation mist 2 puff inhalation DAILY Qty: 4 12RF Deep Sea Nasal 0.65 % aerosol,spray 4 spray NS QID PRN PRN Rx Instructions: 1 spray each nostril QID torsemide 20 mg tablet 40 mg PO BID DIURETIC Rx Instructions: 60mg BID budesonide-formoterol [Symbicort] 80-4.5 mcg/actuation HFA aerosol inhaler 2 puff inhalation Q12H calcium carbonate [Tums] 200 mg calcium (500 mg) tablet,chewable 400 mg PO Q4H PRN (Reason: dyspepsia) tramadol 100 mg tablet 100 mg PO BID PRN (DME) BiPap See Rx Instructions .Route .MEDSUPPLY Qty: 1 0RF Rx Instructions: See internal note diltiazem HCl [DILT-XR] 240 mg capsule,ext.rel 24h degradable 240 mg PO QAM acetaminophen [Tylenol] 325 mg Tablet 650 mg PO Q4H PRN epinephrine 0.3 mg/0.3 mL Auto-Injector 0.3 mg IM PRN PRN amiodarone 200 mg tablet 200 mg PO DAILY albuterol sulfate 90 mcg/actuation HFA aerosol inhaler 2 inh INHALATION .Q4H,PRN PRN Rx Instructions: TID PRN Per MAR tolterodine 4 mg capsule,extended release 24hr 4 mg PO DAILY AM insulin glargine [Lantus Solostar U-100 Insulin] 100 unit/mL (3 mL) Insulin Pen 20 unit SUBCUT HS Qty: 0 0RF potassium chloride 10 mEq tablet extended release 10 meq PO DAILY AM Rx Instructions: 20mEq levothyroxine 100 mcg Tablet 100 mcg PO HS insulin aspart U-100 100 unit/mL (3 mL) Insulin Pen 1 sliding scale dose SUBCUT USEASDIRECTD Rx Instructions: <110=0 units, 111-150=6 units, 151-200=10 units,201-250=12units,251-300=15 units, 301-150=18units, >350=20units and call physician Trulicity 1.5 mg/0.5 mL pen injector 1.5 mg SUBCUT QWEEK polyethylene glycol 3350 [Miralax] 17 gram/dose powder 17 g PO DAILY Rx Instructions: PRN vitamin B complex Tablet 1 tab PO DAILY apixaban 2.5 mg tablet 2.5 mg PO BID Qty: 20 0RF buspirone 5 mg tablet 5 mg PO TID Rx Instructions: 10mg BID citalopram 20 mg tablet 20 mg PO DAILY Rx Instructions: 10mg ergocalciferol (vitamin D2) 1,250 mcg (50,000 unit) capsule 1,250 mcg PO QWEEK Rx Instructions: 1 tab weekly tramadol 100 mg tablet 50 mg PO DAILY PRN Rx Instructions: TID MAX 400mg daily Discharge Instructions Instructions: Head Injury (ED) Additional Instructions: your cat scan did not show any concerning findings at this time follow up with your primary care provider as needed if you feel more ill, have severe worsening pain or new pain such as chest pain or difficulty breathing return to the emergency department Medical Decision Making 71 yo female with hx of chf, hypothyroidism, who resides at the [facility] and comes in today with ems with complaints of head trauma. She states she was walking to the restroom at the [facility] and slipped on a tile floor. She denies any preceding symptoms such as chest pain, lightheaded/dizziness, dyspnea, abdomen pain. She states she fell back and hit her head on the ground, no loc. She is complaining of mild posterior head pain where she hit her head otherwise has no pain. She has no midline c/t/l spine tenderness, no chest tenderness or abdomen tenderness and no pain in her legs or arms. She is caox4 and has no focal deficits. Her history seems likely a mechanical fall and unlikely presyncope/syncope and she is clear on this. She declines to have ekg or blood work done and has capacity to make her own decisions, and given the likely mechanical fall this is reason able. Will obtain ct head to evaluate for possible tbi imaging negative, she has no other symptoms and no complaints now, requesting d/c. Advised to f/u with pcp and return precautions given Differential Diagnosis Differential Diagnosis: tbi, concussion, hematoma HPI General Mode of arrival: EMS . Date/Time Provider Initiated Documentation: 12/13/21 16:42 . Limitations to Documentation: no limitations . Information obtained by: patient . History of Present Illness 71 year old F presents to the emergency department with the chief complaint of head trauma, described as mild, Patient started experiencing this hour(s) (1) and it has been constant. No relieving factors improve symptom(s), No exacerbating factors reported . Patient notes no other symptoms.. Patient did receive the following treatments prior to arrival, none Related Data Home Medications Medication Instructions Recorded Confirmed acetaminophen 325 mg tablet 650 mg PO Q4H PRN 01/14/20 12/09/21 (Tylenol) diltiazem HCl 240 mg 240 mg PO QAM 01/14/20 12/09/21 capsule,extended release 24 hr, controlled (DILT-XR) epinephrine 0.3 mg/0.3 mL 0.3 mg IM PRN PRN 01/14/20 12/09/21 injection, auto-injector amiodarone 200 mg tablet 200 mg PO DAILY 12/02/20 12/09/21 pantoprazole 20 mg tablet,delayed 20 mg PO BID 12/02/20 12/09/21 release tolterodine 4 mg capsule,extended 4 mg PO DAILY AM 12/12/20 12/09/21 release 24 hr insulin glargine 100 unit/mL (3 20 unit (0.2 mL) subcut HS #0 mL 12/16/20 12/09/21 mL) subcutaneous pen (Lantus Solostar U-100 Insulin) insulin aspart U-100 100 unit/mL 1 sliding scale dose subcut 01/02/21 12/09/21 (3 mL) subcutaneous pen USEASDIRECTD levothyroxine 100 mcg tablet 100 mcg PO HS 01/02/21 12/09/21 dulaglutide 1.5 mg/0.5 mL 1.5 mg subcut QWEEK 01/06/21 12/09/21 subcutaneous [facility] injector [facility]) tiotropium 2.5 mcg-olodaterol 2.5 2 puff inhalation DAILY #4 grams 02/21/21 12/09/21 mcg/actuation mist for inhalation (Stiolto Respimat) vitamin B complex 1 tab PO DAILY 04/16/21 12/09/21 BiPap #1 ea 04/18/21 12/09/21 apixaban 2.5 mg tablet 2.5 mg PO BID #20 tabs 04/18/21 12/09/21 albuterol sulfate 90 mcg/actuation 2 inh inhalation .Q4H,PRN PRN 12/09/21 12/09/21 aerosol inhaler budesonide-formoterol HFA 80 2 puff inhalation Q12H 12/09/21 12/09/21 mcg-4.5 mcg/actuation aerosol inhaler (Symbicort) buspirone 5 mg tablet 5 mg PO TID 12/09/21 12/09/21 calcium carbonate 200 mg calcium 400 mg PO Q4H PRN dyspepsia 12/09/21 12/09/21 (500 mg) chewable tablet (Tums) citalopram 20 mg tablet 20 mg PO DAILY 12/09/21 12/09/21 ergocalciferol (vitamin D2) 1,250 1,250 mcg PO QWEEK 12/09/21 12/09/21 mcg (50,000 unit) capsule metformin 500 mg tablet 750 mg PO TID 12/09/21 12/09/21 polyethylene glycol 3350 17 17 g PO DAILY 12/09/21 12/09/21 gram/dose oral powder (Miralax) potassium chloride 10 mEq 10 meq PO DAILY AM 12/09/21 12/09/21 tablet,extended release sodium chloride 0.65 % nasal spray 4 spray NS QID PRN PRN 12/09/21 12/09/21 aerosol (Deep Sea Nasal) torsemide 20 mg tablet 40 mg PO BID DIURETIC 12/09/21 12/09/21 tramadol 100 mg tablet 50 mg PO DAILY PRN 12/09/21 12/09/21 tramadol 100 mg tablet 100 mg PO BID PRN 12/09/21 12/09/21 Previous Rx's Medication Instructions Recorded insulin glargine 100 unit/mL (3 20 unit (0.2 mL) subcut HS #0 mL 12/16/20 mL) subcutaneous pen (Lantus Solostar U-100 Insulin) tiotropium 2.5 mcg-olodaterol 2.5 2 puff inhalation DAILY #4 grams 02/21/21 mcg/actuation mist for inhalation (Stiolto Respimat) BiPap #1 ea 04/18/21 apixaban 2.5 mg tablet 2.5 mg PO BID #20 tabs 04/18/21 Allergies Allergy/AdvReac Type Severity Reaction Status Date / Time bee venom protein (honey bee) Allergy Unknown Verified 12/09/21 11:29 Penicillins Allergy Unknown Verified 12/09/21 11:29 strawberry Allergy Unknown Verified 12/09/21 11:29 General Stated Complaint: HeadInjury KENDRICK: 3 Review of Systems All systems reviewed & are unremarkable except as noted in HPI and below Constitutional Constitutional: Denies chills, Denies fever(s) and Denies weakness Eyes Eyes: Denies loss of vision Cardiovascular Cardiovascular: Denies chest pain and Denies dyspnea Respiratory Respiratory: Denies cough and Denies dyspnea Gastrointestinal Gastrointestinal: Denies abdominal pain, Denies nausea and Denies vomiting Neurologic Neurologic: Denies loss of vision and Denies weakness PFSH All Active Problems (Updated 12/13/21 @ 18:56 by Andrew England MD) Blunt head trauma (Acute) Personal history of nicotine dependence (Acute) Acute on chronic diastolic CHF (congestive heart failure), NYHA class 1 (Acute) Acute on chronic respiratory failure with hypoxia and hypercapnia (Acute) Onychomycosis (Acute) Anterior epistaxis (Acute) Pulmonary nodule (Acute) Morbid obesity (Acute) Vitamin D deficiency (Acute) MRSA (methicillin resistant staph aureus) culture positive (Acute) Hypoxia (Acute) Hypothyroidism (Chronic) Bilateral cellulitis of lower leg (Acute) Localized swelling of both lower legs (Acute) On amiodarone therapy (Acute) Palliative care patient (Acute) Cellulitis of left lower leg (Acute) Plaque psoriasis (Acute) GERD (gastroesophageal reflux disease) (Chronic) Hypercholesterolemia (Acute) Obesity (Chronic) CHF (congestive heart failure) (Chronic) Family history unobtainable due to patient's condition (Acute) Medical History Acute and chronic respiratory failure with hypercapnia Acute exacerbation of chronic obstructive pulmonary disease Acute on chronic respiratory failure with hypoxia and hypercapnia Acute respiratory distress Acute respiratory distress Altered mental status Arthritis Atrial fibrillation Cellulitis bilateral lower extremities Cellulitis CHF (congestive heart failure) Chronic atrial fibrillation, unspecified Chronic respiratory failure with hypoxia COPD (chronic obstructive pulmonary disease) Diabetes mellitus HCAP (healthcare-associated pneumonia) HCAP (healthcare-associated pneumonia) HCAP (healthcare-associated pneumonia) Hypercarbia Methicillin susceptible Staphylococcus aureus infection as the cause of diseases classified elsewhere Mood disorder Morbid (severe) obesity with alveolar hypoventilation Muscle weakness (generalized) Obesity Pneumonia Sepsis Sepsis Streptococcal bacteremia Toxic metabolic encephalopathy Type 2 diabetes mellitus Type 2 diabetes mellitus with hyperglycemia Surgical History H/O hand surgery right index finger removal of tendon sheath ganglion H/O: hysterectomy History of carpal tunnel surgery of right wrist History of excision of lesion abdominal cyst removed S/P appendectomy Family History Father Heart disease 2 PR, at 62 Mother Heart disease Social History Smoking/Tobacco Use Status: Former Tobacco Use Smoking risk assessment performed?: Yes Alcohol Intake: never Drug use: Never Substance use type: does not use Do you feel safe at home: Yes Do you feel safe in your relationship?: Yes Exam Const General: no acute distress Orientation: alert HENMT Head: no palpable skull fracture Ears: external ears normal General nose exam: external nose normal Mouth: moist mucous membranes Eyes General: appearance normal, both eyes and all related structures Neck Neck: normal visual inspection Resp Effort & Inspection: normal respiratory effort and able to speak in complete sentences Cardio Rate: regular rate Skin General skin exam: no rashes or lesions noted Neuro General: patient alert and patient oriented x3 Extrem General: normal to inspection Psych Mental Status: mental status grossly normal Course Vital Signs Vital signs: Vital Signs Pulse 83 12/13/21 17:03 Respiratory Rate 20 12/13/21 17:03 Blood Pressure 123/47 L 12/13/21 17:03 Pulse Oximetry 99 12/13/21 17:03 Pulse 83 12/13/21 17:03 Respiratory Rate 20 12/13/21 17:03 Blood Pressure 123/47 L 12/13/21 17:03 Blood Pressure Position Sitting 12/13/21 17:03 Pulse Oximetry 99 12/13/21 17:03 Oxygen Delivery Method Nasal Cannula 12/13/21 17:03 Oxygen Flow Rate 2 12/13/21 17:03 Pain Level 6 12/13/21 17:03 Lab/Test Results Lab/Test Results: Laboratory Tests Range/Units 12/13/21 12/13/21 12/13/21 16:45 16:45 16:45 WBC Cancelled RBC Cancelled Hgb Cancelled Hct Cancelled MCV Cancelled MCH Cancelled MCHC Cancelled RDW Cancelled Plt Count Cancelled MPV Cancelled Immature Gran % Cancelled Neutrophils % Cancelled Band Neutrophils % Cancelled Lymphocytes % Cancelled Atypical Lymphs % Cancelled Monocytes % Cancelled Eosinophils % Cancelled Basophils % Cancelled Metamyelocytes % Cancelled Myelocytes % Cancelled Promyelocytes % Cancelled Other Cells % Cancelled Nucleated RBC % Cancelled Absolute Neutrophils Cancelled Absolute Lymphocytes Cancelled Absolute Monocytes Cancelled Absolute Eosinophils Cancelled Absolute Basophils Cancelled RBC Morphology Cancelled Polychromasia Cancelled Hypochromasia Cancelled Poikilocytosis Cancelled Basophilic Stippling Cancelled Anisocytosis Cancelled Microcytosis Cancelled Macrocytosis Cancelled Spherocytes Cancelled Tear Drop Cells Cancelled Ovalocytes Cancelled Stomatocytes Cancelled [place] Bodies Cancelled Ame Cells/Echinocytes Cancelled Acanthocytes (Spur) Cancelled Schistocytes Cancelled PT Cancelled INR Cancelled APTT Cancelled Sodium Cancelled Potassium Cancelled Chloride Cancelled Carbon Dioxide Cancelled Anion Gap Cancelled BUN Cancelled Creatinine Cancelled Est GFR (CKD-EPI 2020) Cancelled Glucose Cancelled Calcium Cancelled Magnesium Cancelled Total Bilirubin Cancelled AST Cancelled ALT Cancelled Alkaline Phosphatase Cancelled Troponin I Cancelled Total Protein Cancelled Albumin Cancelled Range/Units 12/13/21 19:45 WBC RBC Hgb Hct MCV MCH MCHC RDW Plt Count MPV Immature Gran % Neutrophils % Band Neutrophils % Lymphocytes % Atypical Lymphs % Monocytes % Eosinophils % Basophils % Metamyelocytes % Myelocytes % Promyelocytes % Other Cells % Nucleated RBC % Absolute Neutrophils Absolute Lymphocytes Absolute Monocytes Absolute Eosinophils Absolute Basophils RBC Morphology Polychromasia Hypochromasia Poikilocytosis Basophilic Stippling Anisocytosis Microcytosis Macrocytosis Spherocytes Tear Drop Cells Ovalocytes Stomatocytes [place] Bodies [place] Cells/Echinocytes Acanthocytes (Spur) Schistocytes PT INR APTT Sodium Potassium Chloride Carbon Dioxide Anion Gap BUN Creatinine Est GFR (CKD-EPI 2020) Glucose Calcium Magnesium Total Bilirubin AST ALT Alkaline Phosphatase Troponin I Cancelled Total Protein Albumin
--- NOTE | 2021-12-13 18:51 | DI.VRAD_ITS ---
PROCEDURE INFORMATION: Exam: CT Head Without Contrast Exam date and time: 12/13/2021 6:38 PM Age: 71 years old Clinical indication: Injury or trauma; Fall; Blunt trauma (contusions or hematomas); Consciousness not specified; Injury date: 12/13/21 TECHNIQUE: Imaging protocol: Computed tomography of the head without contrast. Radiation optimization: All CT scans at this facility use at least one of these dose optimization techniques: automated exposure control; mA and/or kV adjustment per patient size (includes targeted exams where dose is matched to clinical indication); or iterative reconstruction. COMPARISON: CT HEAD WO 01/14/2020 1:20 PM FINDINGS: Brain: Periventricular and subcortical white matter areas of hypoattenuation, likely chronic small vessel ischemic change, demyelination, or gliosis. No intracranial mass, acute hemorrhage, or acute infarction. Cerebral ventricles: No ventriculomegaly. Paranasal sinuses: Minimal ethmoid sinus disease. Mastoid air cells: Normal as visualized. Bones/joints: Normal. Soft tissues: Mild left posterior parietal soft tissue swelling/contusion. IMPRESSION: 1. No acute intracranial abnormality. 2. Mild left posterior parietal soft tissue swelling/contusion. Dictated and Authenticated by: Navin Starkey MD. Ordering:DAYAN Morales MD
[2021-12-13 19:03] VITALS: BP 122/66; PULSE 83; RESP 20; O2SAT 98
== END 2021-12-13 19:04 | disposition home or self-care (01) ==
PROVIDERS: Emergency Provider Emergency Medicine; PCP Family Medicine
DX: S09.90XA Unspecified injury of head, initial encounter (principal); I50.9 Heart failure, unspecified; J44.9 Chronic obstructive pulmonary disease, unspecified; I48.91 Unspecified atrial fibrillation; E11.9 Type 2 diabetes mellitus without complications; Z79.4 Long term (current) use of insulin; Z79.84 Long term (current) use of oral hypoglycemic drugs; Z79.51 Long term (current) use of inhaled steroids; Z87.891 Personal history of nicotine dependence; W01.198A Fall on same level from slipping, tripping and stumbling with subsequent striking against other object, initial encounter; Y93.01 Activity, walking, marching and hiking
CPT/HCPCS: 80053; 99284; 70450; 83735; 84484; 85025; 85610; 85730; 99282

== ENCOUNTER 2021-12-19 18:33 | Outpatient (REF) | payer MEDICARE, MEDICAID, SELFPAY ==
[2021-12-19 18:25] LABS: C-Reactive Protein 3.15 mg/dL (0.0-0.3)
[2021-12-19 18:34] LABS: Abs Immature Grans 0.09 10^3/uL (0.0-0.06); Absolute Basophil Count 0.08 10^3/uL (0.0-0.2); Absolute Eosinophil Count 0.61 10^3/uL (0.0-0.7); Absolute Lymphocyte Count 2.17 10^3/uL (1.2-3.4); Absolute Monocyte Count 0.73 10^3/uL (0.1-0.8); Absolute Neutrophil Count 9.64 10^3/uL (1.2-6.7); Basophils % 0.6; Eosinophils % 4.6; HCT 38.8 % (36.0-46.0); HGB 11.9 g/dL (11.2-15.7); Immature Grans % 0.7; Lymphocytes % 16.3; MCH 30.7 pg (27.0-33.0); MCHC 30.7 % (32.0-36.0); MCV 100 fL (80-95); MPV 9.6 fL (8.0-11.0); Monocytes % 5.5; Neutrophils % 72.3; Platelet Count 359 10^3/uL (130-400); RBC 3.87 10^6/uL (3.93-5.22); RDW 14.2 % (11.7-14.6); RDW-SD 51.6 fL; WBC 13.34 10^3/uL (4.4-10.8)
[2021-12-19 20:20] LABS: Hemoglobin A1C 6.1 % (<5.7)
== END 2021-12-19 18:34 | disposition home or self-care (01) ==
LOC: LBN 18:33
PROVIDERS: PCP Family Medicine; Visit Provider Nurse Practitioner Gerontology
DX: E11.65 Type 2 diabetes mellitus with hyperglycemia (principal); J96.22 Acute and chronic respiratory failure with hypercapnia; R79.82 Elevated C-reactive protein (CRP); E03.9 Hypothyroidism, unspecified; I50.9 Heart failure, unspecified; I10 Essential (primary) hypertension; E66.01 Morbid (severe) obesity due to excess calories
CPT/HCPCS: 83036; 85025; 86140

== ENCOUNTER 2022-01-03 16:58 | Outpatient (REF) | payer MEDICARE, MEDICAID, SELFPAY ==
[2022-01-03 15:29] LABS: Abs Immature Grans 0.14 10^3/uL (0.0-0.06); Absolute Eosinophil Count 0.05 10^3/uL (0.0-0.7); Absolute Monocyte Count 0.18 10^3/uL (0.1-0.8); Basophils % 0.5; Eosinophils % 0.3; HCT 40.3 % (36.0-46.0); Immature Grans % 0.8; Lymphocytes % 5.1; MCH 29.9 pg (27.0-33.0); MCHC 29.8 % (32.0-36.0); MCV 101 fL (80-95); Neutrophils % 92.3; Platelet Count 319 10^3/uL (130-400); RBC 4.01 10^6/uL (3.93-5.22); RDW 14.3 % (11.7-14.6); RDW-SD 52.9 fL; WBC 17.76 10^3/uL (4.4-10.8)
[2022-01-03 15:30] LABS: Absolute Basophil Count 0.09 10^3/uL (0.0-0.2); Absolute Lymphocyte Count 0.91 10^3/uL (1.2-3.4); Absolute Neutrophil Count 16.39 10^3/uL (1.2-6.7)
[2022-01-03 15:46] LABS: ALT 18 U/L (14-59); AST 22 U/L (15-37); Albumin 3.3 g/dL (3.4-5.0); Alkaline Phosphatase 92 U/L (46-116); BUN 14 mg/dL (7-18); Bilirubin, Total 0.2 mg/dL (0.2-1.0); CREATININE 0.9 mg/dL (0.55-1.02); Calcium 9.6 mg/dL (8.5-10.1); Chloride 94 mmol/L (98-107); Glucose 115 mg/dL (74-106); NT-proBNP 117 pg/mL (<300); Sodium 139 mmol/L (136-145); Total Protein 7.3 g/dL (6.4-8.2)
== END 2022-01-03 16:59 | disposition home or self-care (01) ==
LOC: LBN 16:58
PROVIDERS: PCP Family Medicine; Visit Provider Nurse Practitioner Gerontology
DX: E11.65 Type 2 diabetes mellitus with hyperglycemia (principal); J96.91 Respiratory failure, unspecified with hypoxia; J96.22 Acute and chronic respiratory failure with hypercapnia
CPT/HCPCS: 80053; 83880; 85025

== ENCOUNTER 2022-01-05 17:08 | Outpatient (REF) | payer MEDICARE, MEDICAID, SELFPAY ==
[2022-01-05 18:11] LABS: Absolute Basophil Count 0.09 10^3/uL (0.0-0.2); Absolute Lymphocyte Count 1.88 10^3/uL (1.2-3.4); Basophils % 0.6; Eosinophils % 1.2; HCT 40.4 % (36.0-46.0); HGB 12.2 g/dL (11.2-15.7); Immature Grans % 0.7; Lymphocytes % 12.8; MCH 30.1 pg (27.0-33.0); MCHC 30.2 % (32.0-36.0); MCV 100 fL (80-95); MPV 9.5 fL (8.0-11.0); Monocytes % 4.8; Neutrophils % 79.9; Platelet Count 363 10^3/uL (130-400); RBC 4.05 10^6/uL (3.93-5.22); RDW 14.6 % (11.7-14.6); RDW-SD 53.1 fL; WBC 14.66 10^3/uL (4.4-10.8)
[2022-01-05 18:17] LABS: Absolute Eosinophil Count 0.18 10^3/uL (0.0-0.7); Absolute Neutrophil Count 11.71 10^3/uL (1.2-6.7)
[2022-01-05 18:28] LABS: ALT 17 U/L (14-59); AST 19 U/L (15-37); Albumin 3.3 g/dL (3.4-5.0); Alkaline Phosphatase 79 U/L (46-116); Anion Gap 0.6 mmol/L (3-11); BUN 16 mg/dL (7-18); Bilirubin, Total 0.2 mg/dL (0.2-1.0); CO2 42.4 mmol/L (21.0-32.0); CREATININE 1.2 mg/dL (0.55-1.02); Calcium 9.5 mg/dL (8.5-10.1); Chloride 97 mmol/L (98-107); Glucose 120 mg/dL (74-106); Potassium 3.6 mmol/L (3.5-5.1); Sodium 140 mmol/L (136-145); Total Protein 7.2 g/dL (6.4-8.2)
== END 2022-01-05 17:09 | disposition home or self-care (01) ==
LOC: LBN 17:08
PROVIDERS: PCP Family Medicine; Visit Provider Nurse Practitioner Gerontology
DX: J44.1 Chronic obstructive pulmonary disease with (acute) exacerbation (principal); E66.2 Morbid (severe) obesity with alveolar hypoventilation; E11.65 Type 2 diabetes mellitus with hyperglycemia; J96.20 Acute and chronic respiratory failure, unspecified whether with hypoxia or hypercapnia
CPT/HCPCS: 80053; 85025

== ENCOUNTER → 2022-01-06 00:56 | Outpatient (CLI) | payer MEDICARE, MEDICAID, SELFPAY ==
--- NOTE | 2022-01-06 08:00 | DI.RAD_ITS ---
Exam(s) XR TIB/FIB LT EXAM: XR TIB/FIB LT CLINICAL HISTORY: COMPARE WITH [facility] MRi 01/19/20;continued elevated crp,wbc,edema,R93.89. TECHNIQUE: 2D digital imaging was performed of the left tibia and fibula. Images were obtained. A P and lateral views were obtained. COMPARISON: CR XR TIB/FIB LT from 01/16/2020 MR MR LOWER EXTREMITY LT WO/W from 01/19/2020 FINDINGS: The proximal tibia and fibula are excluded from the lateral view. BONES: No acute fracture is present. No bony destructive lesion is seen. Moderate degenerative change s are seen in the knee particularly the medial femoral tibial joint. SOFT TISSUE: There is edema seen in the soft tissues of the lower extremity. IMPRESSION: 1. No acute osseous abnormality. 2. Soft tissue edema in the lower extremity. DATA REPOSITORY: RADIATION DOSE DELIVERED:
== END ==
PROVIDERS: PCP Family Medicine; Visit Provider Family Medicine
DX: R93.89 Abnormal findings on diagnostic imaging of other specified body structures (principal); R60.0 Localized edema
CPT/HCPCS: 73590

== ENCOUNTER 2022-01-12 18:29 | Outpatient (REF) | payer MEDICARE, MEDICAID, SELFPAY ==
[2022-01-12 19:06] LABS: Abs Immature Grans 0.14 10^3/uL (0.0-0.06); Absolute Basophil Count 0.07 10^3/uL (0.0-0.2); Absolute Neutrophil Count 15.66 10^3/uL (1.2-6.7); Basophils % 0.4; Eosinophils % 0.3; HCT 39.8 % (36.0-46.0); HGB 12.2 g/dL (11.2-15.7); Immature Grans % 0.8; MCH 29.5 pg (27.0-33.0); MCHC 30.7 % (32.0-36.0); MCV 96 fL (80-95); Monocytes % 3.5; Nucleated RBC 0.1 % (0.0-0.3); RBC 4.14 10^6/uL (3.93-5.22); RDW 14.9 % (11.7-14.6); RDW-SD 52.5 fL
[2022-01-12 19:16] LABS: ALT 19 U/L (14-59); AST 16 U/L (15-37); Albumin 3.4 g/dL (3.4-5.0); Alkaline Phosphatase 66 U/L (46-116); Anion Gap 3.8 mmol/L (3-11); BUN 23 mg/dL (7-18); Bilirubin, Total 0.3 mg/dL (0.2-1.0); CO2 41.2 mmol/L (21.0-32.0); CREATININE 1.2 mg/dL (0.55-1.02); Calcium 9.2 mg/dL (8.5-10.1); Chloride 94 mmol/L (98-107); Glucose 148 mg/dL (74-106); NT-proBNP 95 pg/mL (<300); Potassium 3.8 mmol/L (3.5-5.1); Sodium 139 mmol/L (136-145); Total Protein 6.9 g/dL (6.4-8.2)
[2022-01-12 19:27] LABS: Absolute Eosinophil Count 0.05 10^3/uL (0.0-0.7); Absolute Lymphocyte Count 1.25 10^3/uL (1.2-3.4); Absolute Monocyte Count 0.62 10^3/uL (0.1-0.8)
[2022-01-12 19:30] LABS: Vitamin D 25 Total 32.9 ng/mL (30-100)
[2022-01-12 20:27] LABS: Platelet Count 289 10^3/uL (130-400)
== END 2022-01-12 18:30 | disposition home or self-care (01) ==
LOC: LBN 18:29
PROVIDERS: Nurse Practitioner Gerontology; PCP Family Medicine
DX: J96.91 Respiratory failure, unspecified with hypoxia (principal); I50.813 Acute on chronic right heart failure; E78.5 Hyperlipidemia, unspecified; R68.89 Other general symptoms and signs
CPT/HCPCS: 80053; 82306; 83880; 85025

== ENCOUNTER 2022-01-17 17:51 | Outpatient (REF) | payer MEDICARE, MEDICAID, SELFPAY ==
[2022-01-17 17:57] LABS: Abs Immature Grans 0.12 10^3/uL (0.0-0.06); Absolute Eosinophil Count 0.27 10^3/uL (0.0-0.7); Absolute Monocyte Count 0.95 10^3/uL (0.1-0.8); Basophils % 0.4; Eosinophils % 1.7; HCT 40.1 % (36.0-46.0); HGB 12.3 g/dL (11.2-15.7); Immature Grans % 0.7; Lymphocytes % 10.7; MCH 29.6 pg (27.0-33.0); MCHC 30.7 % (32.0-36.0); MCV 97 fL (80-95); MPV 9.9 fL (8.0-11.0); Monocytes % 5.9; Neutrophils % 80.6; Platelet Count 284 10^3/uL (130-400); RBC 4.15 10^6/uL (3.93-5.22); RDW 14.8 % (11.7-14.6); WBC 16.11 10^3/uL (4.4-10.8)
[2022-01-17 17:58] LABS: Absolute Basophil Count 0.06 10^3/uL (0.0-0.2); Absolute Lymphocyte Count 1.72 10^3/uL (1.2-3.4); Absolute Neutrophil Count 12.98 10^3/uL (1.2-6.7)
[2022-01-17 18:21] LABS: Anion Gap 5.4 mmol/L (3-11); BUN 17 mg/dL (7-18); CO2 41.6 mmol/L (21.0-32.0); CREATININE 1.1 mg/dL (0.55-1.02); Calcium 8.9 mg/dL (8.5-10.1); Chloride 95 mmol/L (98-107); Estimated GFR 53.06 (mL/min/1.73m2); Glucose 159 mg/dL (74-106); NT-proBNP 101 pg/mL (<300); Potassium 3.4 mmol/L (3.5-5.1); Sodium 142 mmol/L (136-145)
== END 2022-01-17 17:52 | disposition home or self-care (01) ==
LOC: LBN 17:51
PROVIDERS: PCP Family Medicine; Visit Provider Nurse Practitioner Gerontology
DX: I50.813 Acute on chronic right heart failure (principal); J96.22 Acute and chronic respiratory failure with hypercapnia; E78.5 Hyperlipidemia, unspecified; J44.1 Chronic obstructive pulmonary disease with (acute) exacerbation
CPT/HCPCS: 80048; 83880; 85025

== ENCOUNTER 2022-01-30 20:53 | Outpatient (REF) | payer MEDICARE, MEDICAID, SELFPAY ==
[2022-01-30 21:39] LABS: Abs Immature Grans 0.07 10^3/uL (0.0-0.06); Absolute Basophil Count 0.05 10^3/uL (0.0-0.2); Absolute Eosinophil Count 0.38 10^3/uL (0.0-0.7); Absolute Lymphocyte Count 2.06 10^3/uL (1.2-3.4); Absolute Monocyte Count 0.67 10^3/uL (0.1-0.8); Absolute Neutrophil Count 6.71 10^3/uL (1.2-6.7); Basophils % 0.5; Eosinophils % 3.8; HCT 39.8 % (36.0-46.0); HGB 11.7 g/dL (11.2-15.7); Immature Grans % 0.7; Lymphocytes % 20.7; MCH 28.8 pg (27.0-33.0); MCHC 29.4 % (32.0-36.0); MCV 98 fL (80-95); MPV 9.6 fL (8.0-11.0); Monocytes % 6.7; Neutrophils % 67.6; Platelet Count 320 10^3/uL (130-400); RBC 4.06 10^6/uL (3.93-5.22); RDW 14.9 % (11.7-14.6); WBC 9.94 10^3/uL (4.4-10.8)
[2022-01-30 22:27] LABS: ALT 20 U/L (14-59); AST 18 U/L (15-37); Albumin 3.4 g/dL (3.4-5.0); Alkaline Phosphatase 71 U/L (46-116); Anion Gap 3.2 mmol/L (3-11); BUN 12 mg/dL (7-18); Bilirubin, Total 0.2 mg/dL (0.2-1.0); CO2 40.8 mmol/L (21.0-32.0); CREATININE 1.1 mg/dL (0.55-1.02); Calcium 9.3 mg/dL (8.5-10.1); Chloride 94 mmol/L (98-107); Estimated GFR 53.06 (mL/min/1.73m2); Glucose 162 mg/dL (74-106); Potassium 3.8 mmol/L (3.5-5.1); Sodium 138 mmol/L (136-145)
== END 2022-01-30 20:54 | disposition home or self-care (01) ==
LOC: LBN 20:53
PROVIDERS: PCP Family Medicine; Visit Provider Nurse Practitioner Gerontology
DX: I50.813 Acute on chronic right heart failure (principal); J96.22 Acute and chronic respiratory failure with hypercapnia; J44.1 Chronic obstructive pulmonary disease with (acute) exacerbation; R68.89 Other general symptoms and signs
CPT/HCPCS: 80053; 85025

== ENCOUNTER 2022-02-16 20:11 | Inpatient (IN) | payer MEDICARE, MEDICAID, SELFPAY ==
--- NOTE | 2022-02-16 20:00 | RT.EKG_ITS ---
APPROVED REPORT Exam: Resting ECG Reason for Exam: resp distress Patient Location: E HR:90 bpm ECG Measurements Heart Rate 90 AXIS MD 186 P 0 QRSd 113 QRS -87 QT 436 T -28 QTc 533 Conclusion Sinus rhythm...normal P axis, V-rate 60- 99 Multiform ventricular premature complexes...short R-R, variable morphology Left anterior fascicular block...axis(240,-40), init forces inf Anterolateral infarct, old...Q>40mS, abnrm ST-T, V3-V6,I,aVL Prolonged QT interval...QTc >500mS I have reviewed and interpreted ECG and agree with software generated interpretation.
[2022-02-16 20:15] VITALS: BP 93/66; PULSE 91; RESP 20; TEMP 36.8; O2SAT 92
--- NOTE | 2022-02-16 20:15 | DI.RAD_ITS ---
Exam(s) XR PORTABLE CHEST AP EXAM: XR PORTABLE CHEST AP CLINICAL HISTORY: cough, hypoxic,suspect chf TECHNIQUE: 2D digital imaging was performed of the chest. One image was obtained. An AP view was ob tained. COMPARISON: CR XR PORTABLE CHEST AP from 12/01/2021 FINDINGS: MEDIASTINUM: Normal. HEART: Cardiomegaly. PULMONARY VASCULATURE: There is mild pulmonary venous congestion. LUNGS: Mild interstitial edema is seen. No focal consolidating infiltrates present. PLEURAL SPACE: No pleural effusion or pneumothorax. BONE:Within normal limits for the patient's age. OTHER FINDINGS:Normal. IMPRESSION: Findings suspicious for CHF. Please correlate clinically. DATA REPOSITORY: RADIATION DOSE DELIVERED:
--- NOTE | 2022-02-16 20:43 | DI.VRAD_ITS ---
PROCEDURE INFORMATION: Exam: XR Chest Exam date and time: 02/16/2022 8:07 PM Age: 71 years old Clinical indication: Other: Cough, hypoxic, suspect chf TECHNIQUE: Imaging protocol: Radiologic exam of the chest. Views: 1 view. COMPARISON: CR XR PORTABLE CHEST AP 12/01/2021 1:49 PM FINDINGS: Lungs: Mild pulmonary vascular congestion and mild interstitial edema suspected No consolidation. Pleural spaces: No pleural effusion. No pneumothorax. Heart/Mediastinum: Grossly stable cardiomegaly. Bones/joints: Unremarkable. IMPRESSION: Mild interstitial edema suspected Dictated and Authenticated by: Ke Mota MD. Ordering:KRISTINE Hickey MD
[2022-02-16 21:07] LABS: HCO3 (Venous) 44 mmol/L (23-28); O2 Sat (Venous) 88 %; TCO2 (Venous) 40 mmol/L (24-29); pH (Venous) 7.41 (7.31-7.41); pO2 (Venous) 55 mmHg
[2022-02-16 21:08] LABS: Lactate 1.9 mmol/L (0.6-1.4)
[2022-02-16 21:09] LABS: Abs Immature Grans 0.16 10^3/uL (0.0-0.06); Absolute Basophil Count 0.05 10^3/uL (0.0-0.2); Absolute Eosinophil Count 0.22 10^3/uL (0.0-0.7); Absolute Neutrophil Count 20.97 10^3/uL (1.2-6.7); BE (Venous) > 15 mmol/L (-2-3); Basophils % 0.2; Eosinophils % 0.9; HCT 37.8 % (36.0-46.0); HGB 11.3 g/dL (11.2-15.7); Immature Grans % 0.6; Lymphocytes % 7.8; MCH 28.5 pg (27.0-33.0); MCHC 29.9 % (32.0-36.0); MCV 95 fL (80-95); Monocytes % 6.2; Neutrophils % 84.3; Platelet Count 310 10^3/uL (130-400); RBC 3.97 10^6/uL (3.93-5.22); RDW 15.6 % (11.7-14.6); RDW-SD 54.4 fL; WBC 24.88 10^3/uL (4.4-10.8)
[2022-02-16 21:10] LABS: pCO2 (Venous) 68 mmHg (41-51)
[2022-02-16 21:20] LABS: Absolute Lymphocyte Count 1.94 10^3/uL (1.2-3.4); Absolute Monocyte Count 1.54 10^3/uL (0.1-0.8); RBC Morphology Normal
[2022-02-16 21:21] LABS: Diff Comment Agrees w/ Instrument
--- NOTE | 2022-02-16 21:23 | ED.GENADUL_ITS ---
Discharge Plan Disposition Patient Disposition: Admit to [facility] Condition: Improving Discharge Details Chief Complaint: RespSymp Clinical Impression: CHF (congestive heart failure), Pneumonia Admit Date/Time: 02/16/22 23:12 Admit Provider: Shaka Sandoval Attending Provider: Shaka Sandoval Primary Care Provider: Evi Cloud ED Provider: Ruperto Manning Medical Decision Making This is a 71-year-old female with a past medical history of CHF, A. fib, amiodarone and Cardizem use, Eliquis use, chronic oxygen dependence on 2 L, type 2 diabetes, morbid obesity, who is DNR/DNI limited, who presents today from the [facility] via EMS for hypoxemia. Patient states that for the [facility] she has been in the 70s to 80s for her O2 level all day, when EMS arrived she was in the low 90s on her home 2 L. She was given a nebulizer and this immediately brought her oxygenation up to the high 90s on 4 L. Patient admits to pain all over. She admits to cough and shortness of breath. She denies any focality to her symptoms otherwise. She does admit to notable weakness. No other complaints at this time. No other modifying factors. physical exam Demonstrates crackles and rhonchi on the left, crackles in the right base. +2 peripheral edema bilaterally. Differential is highest for CHF, pneumonia. We will evaluate for these etiologies, monitor closely and reassess. 9:28 PM Chest x-ray shows elements of edema, worse on the right than the left. Potentially secondary to mucous plugging. Additionally to me there appears to be an infiltrate in the right mid to lower lung field. Radiology from [facility] reads it as just edema. I do feel that antibiotic treatment is indicated in this scenario. We will diurese, treat with antibiotics, monitor closely and reassess. Due to her living at the [facility], we will treat for healthcare asso ciated pneumonia with vancomycin and aztreonam and doxycycline. 11 PM Patient demonstrates notable white count on his CBC, left shift without any lymphopenia. Lactate mildly elevated at 1.9, PCO2 elevated at 68 however that is in the setting of a normal pH. Procalcitonin is also less than 0.1, troponin normal. proBNP notably normal in spite of her clinical evidence of CHF both on her chest x-ray and her peripheral exam. COVID/flu/RSV negative. I do feel that the patient merits admission in this scenario. I did contact the hospitalist Dr. Sandoval, he agrees with the assessment and plan. I will place admission orders on his behalf. I have extensively reviewed the treatment plan with the patient. I have addressed all patient concerns at this time. I have also discussed the plan with the admitting physician and they agree with the current assessment and plan and have agreed to assume responsibility for the patient. All parties demonstrate verbal understanding and agreement with our assessment and plan at this time. The documentation in this chart was dictated using [employer] dictation software. Please excuse any dictation errors. FINDINGS: Lungs: Mild pulmonary vascular congestion and mild interstitial edema suspected No consolidation. Pleural spaces: No pleural effusion. No pneumothorax. Heart/Mediastinum: Grossly stable cardiomegaly. Bones/joints: Unremarkable. IMPRESSION: Mild interstitial edema suspected Thank you for allowing us to participate in the care of your patient. Dictated and Authenticated by: Ke Mota MD 02/16/2022 8:42 PM Eastern Time ([place] & [place]) Sign Out No HPI General Date/Time Provider Initiated Documentation: 02/16/22 20:16 . HPI Narrative: This is a 71-year-old female with a past medical history of CHF, A. fib, amiodarone and Cardizem use, Eliquis use, chronic oxygen dependence on 2 L, type 2 diabetes, morbid obesity, who is DNR/DNI limited, who presents today from the [facility] via EMS for hypoxemia. Patient states that for the [facility] she has been in the 70s to 80s for her O2 level all day, when EMS arrived she was in the low 90s on her home 2 L. She was given a nebulizer and this immediately brought her oxygenation up to the high 90s on 4 L. Patient admits to pain all over. She admits to cough and shortness of breath. She denies any focality to her symptoms otherwise. She does admit to notable weakness. No other complaints at this time. No other modifying factors. Related Data Home Medications Medication Instructions Recorded Confirmed acetaminophen 325 mg tablet 650 mg PO Q4H PRN 01/14/20 12/15/21 (Tylenol) diltiazem HCl 240 mg 240 mg PO QAM 01/14/20 02/17/22 capsule,extended release 24 hr, controlled (DILT-XR) epinephrine 0.3 mg/0.3 mL 0.3 mg IM PRN PRN 01/14/20 02/17/22 injection, auto-injector amiodarone 200 mg tablet 200 mg PO DAILY 12/02/20 02/17/22 pantoprazole 20 mg tablet,delayed 20 mg PO BID 12/02/20 02/17/22 release tolterodine 4 mg capsule,extended 4 mg PO DAILY AM 12/12/20 02/17/22 release 24 hr insulin glargine 100 unit/mL (3 20 unit (0.2 mL) subcut HS #0 mL 12/16/20 02/17/22 mL) subcutaneous pen (Lantus Solostar U-100 Insulin) insulin aspart U-100 100 unit/mL 1 sliding scale dose subcut 01/02/21 12/15/21 (3 mL) subcutaneous pen USEASDIRECTD levothyroxine 100 mcg tablet 100 mcg PO HS 01/02/21 02/17/22 dulaglutide 1.5 mg/0.5 mL 1.5 mg subcut QWEEK 01/06/21 02/17/22 subcutaneous pen injector (Trulicity) tiotropium 2.5 mcg-olodaterol 2.5 2 puff inhalation DAILY #4 grams 02/21/21 12/15/21 mcg/actuation mist for inhalation (Stiolto Respimat) vitamin B complex 1 tab PO DAILY 04/16/21 12/15/21 BiPap #1 ea 04/18/21 12/15/21 apixaban 2.5 mg tablet 2.5 mg PO BID #20 tabs 04/18/21 12/15/21 albuterol sulfate 90 mcg/actuation 2 inh inhalation .Q4H,PRN PRN 12/09/21 02/17/22 aerosol inhaler budesonide-formoterol HFA 80 2 puff inhalation Q12H 12/09/21 02/17/22 mcg-4.5 mcg/actuation aerosol inhaler (Symbicort) calcium carbonate 200 mg calcium 400 mg PO Q4H PRN dyspepsia 12/09/21 02/17/22 (500 mg) chewable tablet (Tums) metformin 500 mg tablet 750 mg PO TID 12/09/21 02/17/22 polyethylene glycol 3350 17 17 g PO DAILY 12/09/21 02/17/22 gram/dose oral powder (Miralax) potassium chloride 10 mEq 10 meq PO DAILY AM 12/09/21 12/15/21 tablet,extended release sodium chloride 0.65 % nasal spray 4 spray NS QID PRN PRN 12/09/21 12/15/21 aerosol (Deep Sea Nasal) torsemide 20 mg tablet 40 mg PO BID DIURETIC 12/09/21 02/17/22 tramadol 100 mg tablet 50 mg PO DAILY PRN 12/09/21 12/15/21 tramadol 100 mg tablet 100 mg PO BID PRN 12/09/21 02/17/22 aluminum hydroxide 1 applic topical DAILY 12/15/21 12/15/21 buspirone 10 mg tablet 10 mg PO BID 12/15/21 02/17/22 cholecalciferol (vitamin D3) 1,250 1,250 mcg PO QWEEK 12/15/21 12/15/21 mcg (50,000 unit) capsule citalopram 10 mg tablet 10 mg PO DAILY 12/15/21 02/17/22 hydrocortisone 2.5 % topical cream 1 applic topical BID PRN 12/15/21 12/15/21 ketoconazole 2 % topical cream 1 applic topical BID 12/15/21 12/15/21 triamcinolone acetonide 0.1 % 1 applic topical BID 12/15/21 12/15/21 topical ointment apixaban 5 mg tablet (Eliquis) 5 mg PO BID 02/17/22 02/17/22 cholecalciferol (vitamin D3) 50 1,000 unit PO 1XD 02/17/22 02/17/22 mcg (2,000 unit) capsule (Vitamin D3) insulin aspart U-100 100 unit/mL 1 sliding scale dose subcut 02/17/22 02/17/22 (3 mL) subcutaneous pen (Novolog USEASDIRECTD Flexpen U-100 Insulin aspart) potassium chloride 20 mEq 20 tab PO 1XD 02/17/22 02/17/22 tablet,extended release(part/cryst) Previous Rx's Medication Instructions Recorded insulin glargine 100 unit/mL (3 20 unit (0.2 mL) subcut HS #0 mL 12/16/20 mL) subcutaneous pen (Lantus Solostar U-100 Insulin) tiotropium 2.5 mcg-olodaterol 2.5 2 puff inhalation DAILY #4 grams 02/21/21 mcg/actuation mist for inhalation (Stiolto Respimat) BiPap #1 ea 04/18/21 apixaban 2.5 mg tablet 2.5 mg PO BID #20 tabs 04/18/21 Allergies Allergy/AdvReac Type Severity Reaction Status Date / Time bee venom protein (honey bee) Allergy Unknown Verified 02/17/22 00:03 Penicillins Allergy Unknown Verified 02/17/22 00:03 strawberry Allergy Unknown Verified 02/17/22 00:03 General Stated Complaint: RespSymp KENDRICK: 2 Review of Systems All systems reviewed & are unremarkable except as noted in HPI and below PFSH All Active Problems (Updated 02/17/22 @ 01:53 by Ruperto Manning DO) Pneumonia (Acute) Abnormal MRI (Acute) 01/19/20 Personal history of nicotine dependence (Acute) Acute on chronic diastolic CHF (congestive heart failure), NYHA class 1 (Acute) Acute on chronic respiratory failure with hypoxia and hypercapnia (Acute) Onychomycosis (Acute) Anterior epistaxis (Acute) Pulmonary nodule (Acute) Morbid obesity (Acute) Vitamin D deficiency (Acute) MRSA (methicillin resistant staph aureus) culture positive (Acute) Hypoxia (Acute) Hypothyroidism (Chronic) Bilateral cellulitis of lower leg (Acute) Localized swelling of both lower legs (Acute) On amiodarone therapy (Acute) Palliative care patient (Acute) Cellulitis of left lower leg (Acute) Plaque psoriasis (Acute) GERD (gastroesophageal reflux disease) (Chronic) Hypercholesterolemia (Acute) Obesity (Chronic) CHF (congestive heart failure) (Chronic) Family history unobtainable due to patient's condition (Acute) Medical History Acute and chronic respiratory failure with hypercapnia Acute exacerbation of chronic obstructive pulmonary disease Acute on chronic respiratory failure with hypoxia and hypercapnia Acute respiratory distress Acute respiratory distress Altered mental status Arthritis Atrial fibrillation Cellulitis bilateral lower extremities Cellulitis CHF (congestive heart failure) Chronic atrial fibrillation, unspecified Chronic respiratory failure with hypoxia COPD (chronic obstructive pulmonary disease) Diabetes mellitus HCAP (healthcare-associated pneumonia) HCAP (healthcare-associated pneumonia) HCAP (healthcare-associated pneumonia) Hypercarbia Methicillin susceptible Staphylococcus aureus infection as the cause of diseases classified elsewhere Mood disorder Morbid (severe) obesity with alveolar hypoventilation Muscle weakness (generalized) Obesity Pneumonia Sepsis Sepsis Streptococcal bacteremia Toxic metabolic encephalopathy Type 2 diabetes mellitus Type 2 diabetes mellitus with hyperglycemia Surgical History H/O hand surgery right index finger removal of tendon sheath ganglion H/O: hysterectomy History of carpal tunnel surgery of right wrist History of excision of lesion abdominal cyst removed S/P appendectomy Family History Father Heart disease 2 [place], at 62 Mother Heart disease Social History Smoking/Tobacco Use Status: Former Tobacco Use Smoking risk assessment performed?: Yes Alcohol Intake: never Drug use: Never Substance use type: does not use Do you feel safe at home: Yes Do you feel safe in your relationship?: Yes Exam Narrative Exam Narrative: 1.Const: Well-nourished, Well-developed, appearing stated age 2.Eyes: PERRL, no conjunctival injection, and symmetrical lids. 3.ENT: Atraumatic external nose and ears. Moist MM. Neck: Symmetric, trachea midline, No thyromegaly. 4.CVS: +S1/S2, No murmurs or gallops. Peripheral pulses 2+ and equal in all extremities. Brisk capillary refill in all extremities. 5.RESP: Stable rate, notable rhonchi and rales on the left. Right demonstrates mild crackles in the bases. 6.GI: Soft, Nontender/Nondistended, No hepatosplenomegaly. No guarding or rebound. 7.MSK: Normocephalic/Atraumatic, Extremities w/o deformity or ttp No cyanosis or clubbing, Normal movement of all extremities, +2 pitting edema bilaterally for the lower extremities 8.Skin: Warm, Dry. No rashes or lesions. 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 Sensation grossly intact, no focal neurologic deficits. 10.Psych: (AAO) x3. Appropriate mood and affect Course Vital Signs Vital signs: Vital Signs Temperature 36.8 C 02/16/22 20:15 Pulse 91 H 02/16/22 20:15 Respiratory Rate 20 02/16/22 20:15 Blood Pressure 93/66 L 02/16/22 20:15 Pulse Oximetry 92 02/16/22 20:15 Temperature 36.8 C 02/16/22 20:15 Temperature Source Oral 02/16/22 20:15 Pulse 91 H 02/16/22 20:15 Respiratory Rate 20 02/16/22 20:15 Blood Pressure 93/66 L 02/16/22 20:15 Blood Pressure Position Sitting 02/16/22 20:15 Pulse Oximetry 92 02/16/22 20:15 Oxygen Delivery Method Nasal Cannula 02/16/22 20:15 Oxygen Flow Rate 2 02/16/22 20:15 Lab/Test Results Lab/Test Results: 02/16/22 20:54 Blood Blood Culture - Pending 02/16/22 20:16 Blood Blood Culture - Pending Laboratory Tests Range/Units 02/16/22 02/16/22 02/16/22 20:54 20:54 20:54 WBC (4.4-10.8) 10^3/uL 24.88 H RBC (3.93-5.22) 10^6/uL 3.97 Hgb (11.2-15.7) g/dL 11.3 Hct (36.0-46.0) % 37.8 MCV (80-95) fL 95 MCH (27.0-33.0) pg 28.5 MCHC (32.0-36.0) % 29.9 L RDW (11.7-14.6) % 15.6 H Plt Count (130-400) 10^3/uL 310 MPV (8.0-11.0) fL 9.0 Immature Gran % 0.6 Neutrophils % 84.3 Lymphocytes % 7.8 Monocytes % 6.2 Eosinophils % 0.9 Basophils % 0.2 Nucleated RBC % (0.0-0.3) % 0.0 Absolute Neutrophils (1.2-6.7) 10^3/uL 20.97 H Absolute Lymphocytes (1.2-3.4) 10^3/uL 1.94 Absolute Monocytes (0.1-0.8) 10^3/uL 1.54 H Absolute Eosinophils (0.0-0.7) 10^3/uL 0.22 Absolute Basophils (0.0-0.2) 10^3/uL 0.05 RBC Morphology Normal VBG pH (7.31-7.41) 7.41 VBG pCO2 (41-51) mmHg 68 H* VBG pO2 mmHg 55 VBG HCO3 (23-28) mmol/L 44 H VBG Total CO2 (24-29) mmol/L 40 H VBG O2 Saturation % 88 VBG Base Excess (-2-3) mmol/L > 15 H VBG Lactate (0.6-1.4) mmol/L 1.9 H
[2022-02-16 21:25] LABS: PTT Activated 30.8 sec (21.0-27.5); Prothrombin Time 10.3 sec (9.3-11.0)
[2022-02-16 21:35] LABS: ALT 17 U/L (14-59); AST 20 U/L (15-37); Albumin 3.1 g/dL (3.4-5.0); Alkaline Phosphatase 71 U/L (46-116); Anion Gap 1.2 mmol/L (3-11); BUN 18 mg/dL (7-18); Bilirubin, Total 0.3 mg/dL (0.2-1.0); CO2 41.8 mmol/L (21.0-32.0); CREATININE 1.1 mg/dL (0.55-1.02); Calcium 9.2 mg/dL (8.5-10.1); Chloride 93 mmol/L (98-107); Estimated GFR 53.06 (mL/min/1.73m2); Glucose 127 mg/dL (74-106); NT-proBNP 195 pg/mL (<300); Potassium 4.1 mmol/L (3.5-5.1); Sodium 136 mmol/L (136-145); Total Protein 7.3 g/dL (6.4-8.2); Troponin I < 50 ng/L (<or=60)
[2022-02-16] MEDS: DOXYCYCLINE 100 MG in Normal Saline 100 ML IVPB (21:52)
[2022-02-16] MEDS: Furosemide 40 MG/4 ML VIAL IVP (21:53)
[2022-02-16 21:54] LABS: COVID-19 PCR Negative (Negative); Influenza A PCR Negative (Negative); Influenza B PCR Negative (Negative); RSV PCR Negative (Negative)
[2022-02-16 21:58] LABS: Source Nasopharynx
[2022-02-16 22:18] LABS: Procalcitonin < 0.1 ng/mL
[2022-02-16] MEDS: VANCOMYCIN 2,000 MG in Normal Saline 500 ML 333.3333 MG IVPB (23:40)
[2022-02-17] VITALS (7 sets, daily range): BP systolic 113–133; BP diastolic 66–74; PULSE 80–91; RESP 8–26; TEMP 37.3–38.2; O2SAT 4–95
[2022-02-17 00:38] LABS: Troponin I < 50 ng/L (<or=60)
[2022-02-17] MEDS: AZTREONAM 2,000 MG in Normal Saline 100 ML 200 MG IVPB ×2 (04:03→12:21)
--- NOTE | 2022-02-17 04:43 | W.PM.HP.N ---
Date of service: 02/16/22 Time of Service: 23:20 Assessment and Plan Assessment and plan (1) HCAP (healthcare-associated pneumonia): Start date: 02/16/22 Start time: 23:20 Assessment and plan: This is 71-year-old lady with onset of fever, dyspnea with cough and hypoxemia appear to have healthcare facility associated pneumonia clinically more on the left than right but chest x-ray is not as revealing. She appears to have hypoxemia with some hypercarbia well compensated revealinging chronic respiratory failure. She will be treated aggressively for healthcare facility pneumonia on Azactam, doxycycline and vancomycin. She is a DNR/DNI but aggressive therapy of reversible problems will be continued. She does wear her CPAP at night and may need positive pressure treatment during the day with her acute respiratory status. She was given Lasix in the ED and currently is on torsemide which will be continued without aggressive diuresis since she appears to be more of an inflammatory process with possible pneumonia. Hoffmann cath will be placed to monitor f fluid balance with patient being debilitated and finding it difficult to get out of bed. (2) Acute on chronic respiratory failure with hypoxia and hypercapnia: Start date: 02/16/22 Start time: 23:20 Status: Acute Assessment and plan: Support with oxygen with patient appearing to have compensated hypercarbia chronically. She does have a history of CHF and is chronically on torsemide which will be continued but her BNP was not elevated though her chest x-ray appeared to be more fluid overload. She did receive IV Lasix in the ED and will be continued on torsemide with diuresis as indicated. She also needs CPAP or positive pressure treatment at night at least and may require more aggressive respiratory care during the day. She appears to be most comfortable sitting up. She is able to move about in bed. She is in no acute distress with her respiratory status and difficulty breathing and will be monitored closely. She is a DNR/DNI. She may be approaching palliative care and [employer]. (3) CHF (congestive heart failure): Assessment and plan: Patient has a history of diastolic dysfunction CHF with possible exacerbation though not severe with normal BNP. I will not over diurese at this time but follow-up bedside POC ultrasound the heart might be useful at least to guide therapy. Last echocardiogram in December 2020 revealed preserved left ventricular tract fraction at 58% and no wall motion abnormalities as well as normal RV function with no mention of PA pressures. Hoffmann catheter will be placed to monitor output more accurately and also because of patient discomfort moving around in bed with respiratory distress. (4) Atrial fibrillation: Assessment and plan: Continue outpatient medical therapy with diltiazem and amiodarone splitting the dose of diltiazem watching for hypotension or bradycardia. Patient i not on telemetry being a DNR/DNI but this could be considered if adjustment of medications is considered. She will be continued on Eliquis. Qualifiers: Atrial fibrillation type: persistent (not longstanding) Qualified Code(s): I48.19 - Other persistent atrial fibrillation (5) Type 2 diabetes mellitus: Assessment and plan: Glucometer measurements with short acting insulin coverage while acutely ill holding her usual medical therapy. Qualifiers: Diabetes mellitus complication status: without complication Diabetes mellitus termite control representative insulin use: without termite control representative use Qualified Code(s): E11.9 - Type 2 diabetes mellitus without complications History of Present Illness History of Present Illness Chief Complaint: Dyspnea with hypoxemia Narrative: This is a 71-year-old female patient who resides at the [facility] with a history of CHF, chronic atrial fibrillation on Eliquis and amiodarone with Cardizem who also is oxygen dependent with morbid obesity and obstructive sleep apnea. She does wear CPAP at night. She recently has had increasing dyspnea and hypoxemia progressive with a pulse oximeter into the 70s at times. EMS was called and at the time they saw her she was on increased oxygen supplement with pulse oximeter in the 90s. She was given nebulizers and brought to the ED for evaluation where she was found to have probable institution acquired pneumonia and possibly exacerbation of her CHF though her BNP was not markedly elevated. She did have a fever once she was brought to [facility]. She did not have any evidence of UTI though this has been a problem in the past. She is morbidly obese and not very mobile. She also has diffuse skin changes which appear to be psoriasis with ulcerations. She had her legs both wrapped in what looks like Unna boots. Patient was not very communicative and grunting with increased oxygen supplement at the time I saw her. She is a DNR/DNI. She offers no further history. Review of Systems Narrative: 13 point review of systems positive for increased dyspnea with cough and increased confusion, otherwise unrevealing or stable with patient having multiple chronic end-stage medical problems and being a DNR/DNI on palliative care. [facility] All Active Problems Pneumonia (Acute) Abnormal MRI (Acute) 01/19/20 Personal history of nicotine dependence (Acute) Acute on chronic diastolic CHF (congestive heart failure), NYHA class 1 (Acute) Acute on chronic respiratory failure with hypoxia and hypercapnia (Acute) Onychomycosis (Acute) Anterior epistaxis (Acute) Pulmonary nodule (Acute) Morbid obesity (Acute) Vitamin D deficiency (Acute) MRSA (methicillin resistant staph aureus) culture positive (Acute) Hypoxia (Acute) Hypothyroidism (Chronic) Bilateral cellulitis of lower leg (Acute) Localized swelling of both lower legs (Acute) On amiodarone therapy (Acute) Palliative care patient (Acute) Cellulitis of left lower leg (Acute) Plaque psoriasis (Acute) GERD (gastroesophageal reflux disease) (Chronic) Hypercholesterolemia (Acute) Obesity (Chronic) CHF (congestive heart failure) (Chronic) Family history unobtainable due to patient's condition (Acute) Medical History Acute and chronic respiratory failure with hypercapnia Acute exacerbation of chronic obstructive pulmonary disease Acute on chronic respiratory failure with hypoxia and hypercapnia Acute respiratory distress Acute respiratory distress Altered mental status Arthritis Atrial fibrillation Cellulitis bilateral lower extremities Cellulitis CHF (congestive heart failure) Chronic atrial fibrillation, unspecified Chronic respiratory failure with hypoxia COPD (chronic obstructive pulmonary disease) Diabetes mellitus HCAP (healthcare-associated pneumonia) HCAP (healthcare-associated pneumonia) HCAP (healthcare-associated pneumonia) Hypercarbia Methicillin susceptible Staphylococcus aureus infection as the cause of diseases classified elsewhere Mood disorder Morbid (severe) obesity with alveolar hypoventilation Muscle weakness (generalized) Obesity Pneumonia Sepsis Sepsis Streptococcal bacteremia Toxic metabolic encephalopathy Type 2 diabetes mellitus Type 2 diabetes mellitus with hyperglycemia Surgical History H/O hand surgery right index finger removal of tendon sheath ganglion H/O: hysterectomy History of carpal tunnel surgery of right wrist History of excision of lesion abdominal cyst removed S/P appendectomy Family History Father Heart disease 2 MT, at 62 Mother Heart disease Social History Smoking/Tobacco Use Status: Former Tobacco Use Smoking risk assessment performed?: Yes Alcohol Intake: never Drug use: Never Substance use type: does not use Do you feel safe at home: Yes Do you feel safe in your relationship?: Yes Meds Allergies and Home Medications Allergies Allergy/AdvReac Type Severity Reaction Status Date / Time bee venom protein (honey bee) Allergy Unknown Verified 02/17/22 00:03 Penicillins Allergy Unknown Verified 02/17/22 00:03 strawberry Allergy Unknown Verified 02/17/22 00:03 Home Medications Medication Instructions Recorded Confirmed Type acetaminophen 325 mg tablet 650 mg PO Q4H PRN 01/14/20 12/15/21 History (Tylenol) diltiazem HCl 240 mg 240 mg PO QAM 01/14/20 02/17/22 History capsule,extended release 24 hr, controlled (DILT-XR) epinephrine 0.3 mg/0.3 mL 0.3 mg IM PRN PRN 01/14/20 02/17/22 History injection, auto-injector amiodarone 200 mg tablet 200 mg PO DAILY 12/02/20 02/17/22 History pantoprazole 20 mg tablet,delayed 20 mg PO BID 12/02/20 02/17/22 History release tolterodine 4 mg capsule,extended 4 mg PO DAILY AM 12/12/20 02/17/22 History release 24 hr insulin glargine 100 unit/mL (3 20 unit (0.2 mL) subcut HS #0 mL 12/16/20 02/17/22 Rx mL) subcutaneous pen (Lantus Solostar U-100 Insulin) insulin aspart U-100 100 unit/mL 1 sliding scale dose subcut 01/02/21 12/15/21 History (3 mL) subcutaneous pen USEASDIRECTD levothyroxine 100 mcg tablet 100 mcg PO HS 01/02/21 02/17/22 History dulaglutide 1.5 mg/0.5 mL 1.5 mg subcut QWEEK 01/06/21 02/17/22 History subcutaneous pen injector (Trulicity) tiotropium 2.5 mcg-olodaterol 2.5 2 puff inhalation DAILY #4 grams 02/21/21 12/15/21 Rx mcg/actuation mist for inhalation (Stiolto Respimat) vitamin B complex 1 tab PO DAILY 04/16/21 12/15/21 History BiPap #1 ea 04/18/21 12/15/21 Rx apixaban 2.5 mg tablet 2.5 mg PO BID #20 tabs 04/18/21 12/15/21 Rx albuterol sulfate 90 mcg/actuation 2 inh inhalation .Q4H,PRN PRN 12/09/21 02/17/22 History aerosol inhaler budesonide-formoterol HFA 80 2 puff inhalation Q12H 12/09/21 02/17/22 History mcg-4.5 mcg/actuation aerosol inhaler (Symbicort) calcium carbonate 200 mg calcium 400 mg PO Q4H PRN dyspepsia 12/09/21 02/17/22 History (500 mg) chewable tablet (Tums) metformin 500 mg tablet 750 mg PO TID 12/09/21 02/17/22 History polyethylene glycol 3350 17 17 g PO DAILY 12/09/21 02/17/22 History gram/dose oral powder (Miralax) potassium chloride 10 mEq 10 meq PO DAILY AM 12/09/21 12/15/21 History tablet,extended release sodium chloride 0.65 % nasal spray 4 spray NS QID PRN PRN 12/09/21 12/15/21 History aerosol (Deep Sea Nasal) torsemide 20 mg tablet 40 mg PO BID DIURETIC 12/09/21 02/17/22 History tramadol 100 mg tablet 50 mg PO DAILY PRN 12/09/21 12/15/21 History tramadol 100 mg tablet 100 mg PO BID PRN 12/09/21 02/17/22 History aluminum hydroxide 1 applic topical DAILY 12/15/21 12/15/21 History buspirone 10 mg tablet 10 mg PO BID 12/15/21 02/17/22 History cholecalciferol (vitamin D3) 1,250 1,250 mcg PO QWEEK 12/15/21 12/15/21 History mcg (50,000 unit) capsule citalopram 10 mg tablet 10 mg PO DAILY 12/15/21 02/17/22 History hydrocortisone 2.5 % topical cream 1 applic topical BID PRN 12/15/21 12/15/21 History ketoconazole 2 % topical cream 1 applic topical BID 12/15/21 12/15/21 History triamcinolone acetonide 0.1 % 1 applic topical BID 12/15/21 12/15/21 History topical ointment apixaban 5 mg tablet (Eliquis) 5 mg PO BID 02/17/22 02/17/22 History cholecalciferol (vitamin D3) 50 1,000 unit PO 1XD 02/17/22 02/17/22 History mcg (2,000 unit) capsule (Vitamin D3) insulin aspart U-100 100 unit/mL 1 sliding scale dose subcut 02/17/22 02/17/22 History (3 mL) subcutaneous pen (Novolog USEASDIRECTD Flexpen U-100 Insulin aspart) potassium chloride 20 mEq 20 tab PO 1XD 02/17/22 02/17/22 History tablet,extended release(part/cryst) Exam Narrative Exam Narrative: General: Patient is morbidly obese and appears in moderate respiratory distress grunting and very weak in her movements trying to get out of bed to go to the bedside commode. She appears to be oriented to place and possibly person but not to time. She appears chronically ill. HEENT: Normocephalic, coarsened facial features, eyes with pupils equal and reactive light symmetrically, extraocular movement intact and sclera anicteric. Oropharynx with dry mucosa. Patient is wearing a Ventimask. Neck: Supple without JVD. Back: Kyphotic without CVA tenderness. Lungs: Poor aeration of the left more than right lung askew over the back with decreased aeration in the left base and coarse crackles with rales upon inspiration over the left lung field especially at the base. Inspiratory coarse crackles sparsely over the right lung field. No increased expiratory phase or expiratory wheeze noted. Less rhonchi than described by ED physician. Breast: Exam deferred. Heart: Irregular rhythm with normal rate and distant heart sounds. No murmur or gallop appreciated. Abdomen: Obese contour, soft and nontender to palpation with no palpable hepatosplenomegaly. Genitalia/rectal: Exam deferred. Extremities: Gross nonpitting edema both lower extremities with both legs wrapped and what appears to be Unna boots. Fair capillary refill. No cyanosis or clubbing. Skin: Diffuse plaque-like rash with erythematous bases and silvery scales consistent with psoriasis with no noted ulcerations but some of the lesions appear raw. Otherwise normal color, warm and dry. Neuro: Cranial nerves II through XII grossly intact, no focal motor deficits though patient appears chronically weak and deconditioned. No tremor. Psych: Patient is obtunded not speaking though nurses stated that she was more awake earlier in the shift. Mood and affect appear depressed and flattened with patient slightly anxious with her respiratory distress. No abnormal thought processes manifested and she appears to follow commands. Remote and recent memory not testable. Results Imaging Imaging Studies: Exam: XR Chest Exam date and time: 02/16/2022 8:07 PM Age: 71 years old Clinical indication: Other: Cough, hypoxic, suspect chf TECHNIQUE: Imaging protocol: Radiologic exam of the chest. Views: 1 view. COMPARISON: CR XR PORTABLE CHEST AP 12/01/2021 1:49 PM FINDINGS: Lungs:? Mild pulmonary vascular congestion and mild interstitial edema suspected No consolidation. Pleural spaces: No pleural effusion. No pneumothorax. Heart/Mediastinum:? Grossly stable cardiomegaly. Bones/joints: Unremarkable. IMPRESSION: Mild interstitial edema suspected Labs Result diagrams: 02/16/22 20:54 02/16/22 20:54 Labs: Laboratory Results - last 24 hr 02/16/22 02/16/22 02/16/22 20:54 20:54 20:54 WBC 24.88 H RBC 3.97 Hgb 11.3 Hct 37.8 MCV 95 MCH 28.5 MCHC 29.9 L RDW 15.6 H Plt Count 310 MPV 9.0 Immature Gran % 0.6 Neutrophils % 84.3 Lymphocytes % 7.8 Monocytes % 6.2 Eosinophils % 0.9 Basophils % 0.2 Nucleated RBC % 0.0 Absolute Neutrophils 20.97 H Absolute Lymphocytes 1.94 Absolute Monocytes 1.54 H Absolute Eosinophils 0.22 Absolute Basophils 0.05 RBC Morphology Normal PT INR APTT VBG pH VBG pCO2 VBG pO2 VBG HCO3 VBG Total CO2 VBG O2 Saturation VBG Base Excess VBG Lactate 1.9 H Sodium 136 Potassium 4.1 Chloride 93 L Carbon Dioxide 41.8 H Anion Gap 1.2 L BUN 18 Creatinine 1.1 H Est GFR (CKD-EPI 2020) 53.06 Glucose 127 H Calcium 9.2 Total Bilirubin 0.3 AST 20 ALT 17 Alkaline Phosphatase 71 Troponin I < 50 NT-Pro-B Natriuret Pep 195 Total Protein 7.3 Albumin 3.1 L Procalcitonin < 0.1 COVID-19 Source SARS-CoV-2 (PCR) Influenza Type A (PCR) Influenza Type B (PCR) RSV (PCR) 02/16/22 02/16/22 02/16/22 20:54 20:54 21:06 WBC RBC Hgb Hct MCV MCH MCHC RDW Plt Count MPV Immature Gran % Neutrophils % Lymphocytes % Monocytes % Eosinophils % Basophils % Nucleated RBC % Absolute Neutrophils Absolute Lymphocytes Absolute Monocytes Absolute Eosinophils Absolute Basophils RBC Morphology PT 10.3 INR 1.0 APTT 30.8 H VBG pH 7.41 VBG pCO2 68 H* VBG pO2 55 VBG HCO3 44 H VBG Total CO2 40 H VBG O2 Saturation 88 VBG Base Excess > 15 H VBG Lactate Sodium Potassium Chloride Carbon Dioxide Anion Gap BUN Creatinine Est GFR (CKD-EPI 2020) Glucose Calcium Total Bilirubin AST ALT Alkaline Phosphatase Troponin I NT-Pro-B Natriuret Pep Total Protein Albumin Procalcitonin COVID-19 Source Nasopharynx SARS-CoV-2 (PCR) Negative Influenza Type A (PCR) Negative Influenza Type B (PCR) Negative RSV (PCR) Negative 02/17/22 00:15 WBC RBC Hgb Hct MCV MCH MCHC RDW Plt Count MPV Immature Gran % Neutrophils % Lymphocytes % Monocytes % Eosinophils % Basophils % Nucleated RBC % Absolute Neutrophils Absolute Lymphocytes Absolute Monocytes Absolute Eosinophils Absolute Basophils RBC Morphology PT INR APTT VBG pH VBG pCO2 VBG pO2 VBG HCO3 VBG Total CO2 VBG O2 Saturation VBG Base Excess VBG Lactate Sodium Potassium Chloride Carbon Dioxide Anion Gap BUN Creatinine Est GFR (CKD-EPI 2020) Glucose Calcium Total Bilirubin AST ALT Alkaline Phosphatase Troponin I < 50 NT-Pro-B Natriuret Pep Total Protein Albumin Procalcitonin COVID-19 Source SARS-CoV-2 (PCR) Influenza Type A (PCR) Influenza Type B (PCR) RSV (PCR) Last Vital Signs Temp 38.2 C H 02/17/22 01:38 Pulse 91 H 02/17/22 01:38 Resp 22 02/17/22 01:38 BP 128/73 02/17/22 01:38 Pulse Ox 85 L 02/17/22 01:38
[2022-02-17] MEDS: Levothyroxine 100 MCG TAB PO (07:27)
[2022-02-17] MEDS: dilTIAZem 60 MG TAB PO ×2 (07:27→13:53)
[2022-02-17 07:38] LABS: Abs Immature Grans 0.22 10^3/uL (0.0-0.06); Absolute Lymphocyte Count 1.76 10^3/uL (1.2-3.4); Absolute Monocyte Count 1.79 10^3/uL (0.1-0.8); Basophils % 0.3; HCT 38.6 % (36.0-46.0); HGB 11.9 g/dL (11.2-15.7); Immature Grans % 0.8; MCH 29.2 pg (27.0-33.0); MCHC 30.8 % (32.0-36.0); MCV 95 fL (80-95); Monocytes % 6.1; Neutrophils % 85.8; Platelet Count 275 10^3/uL (130-400); RBC 4.07 10^6/uL (3.93-5.22); RDW 15.5 % (11.7-14.6); RDW-SD 54.3 fL
[2022-02-17] MEDS: Polyethylene Glycol 3350 17 GM PACKET PO (07:44)
[2022-02-17] MEDS: Torsemide 20 MG TAB 60 MG PO ×2 (07:45→16:16)
[2022-02-17] MEDS: Apixaban 5 MG TAB PO ×2 (07:45→20:06)
[2022-02-17] MEDS: Amiodarone 200 MG TAB PO (07:46)
[2022-02-17] MEDS: Citalopram 10 MG TAB PO (07:46)
[2022-02-17] MEDS: Normal Saline Flush 10 ML SYR IVP ×2 (07:47→20:13)
[2022-02-17] MEDS: busPIRone 5 MG TAB 10 MG PO ×2 (07:47→20:06)
[2022-02-17] MEDS: Pantoprazole 20 MG TABCR PO ×2 (07:47→20:07)
[2022-02-17 08:06] LABS: Absolute Basophil Count 0.09 10^3/uL (0.0-0.2); Absolute Eosinophil Count 0.29 10^3/uL (0.0-0.7); Absolute Neutrophil Count 25.16 10^3/uL (1.2-6.7)
[2022-02-17 08:07] LABS: WBC 29.32 10^3/uL (4.4-10.8)
[2022-02-17 08:08] LABS: Diff Comment Diff Reviewed; RBC Morphology Normal
[2022-02-17] MEDS: Potassium Chloride 20 MEQ TABCR PO (08:45)
[2022-02-17] MEDS: VANCOMYCIN/WATER (PEG) 2 GM/400 ML BAG IVPB (09:30)
[2022-02-17] MEDS: traMADol 50 MG TAB 100 MG PO (11:38)
[2022-02-17] MEDS: DOXYCYCLINE 100 MG in Normal Saline 100 ML IVPB (13:36)
--- NOTE | 2022-02-17 15:50 | PGE_ITS ---
Date of Service Date of service: 02/17/22 Time of Service: 15:50 Assessment and Plan Assessment and plan (1) HCAP (healthcare-associated pneumonia): Assessment and plan: continue day 2 Azactam, doxycycline and vancomycin. She is a DNR/DNI but aggressive therapy of reversible problems will be continued. home ventilator (trilogy) at night and may need positive pressure treatment during the day with her acute respiratory status. (2) Acute on chronic respiratory failure with hypoxia and hypercapnia: Status: Acute Assessment and plan: as above. (3) CHF (congestive heart failure): Assessment and plan: Last echocardiogram in December 2020 revealed preserved left ventricular tract fraction at 58% and no wall motion abnormalities as well as normal RV function with no mention of PA pressures. up date when available. continue diuresis. Hoffmann catheterr to monitor output more accurately and also because of patient discomfort moving around in bed with respiratory distress. (4) Atrial fibrillation: Assessment and plan: Continue outpatient medical therapy with diltiazem and amiodarone splitting the dose of diltiazem watching for hypotension or bradycardia. anticoagulated on Eliquis. Qualifiers: Atrial fibrillation type: persistent (not longstanding) Qualified Code(s): I48.19 - Other persistent atrial fibrillation (5) Type 2 diabetes mellitus: Assessment and plan: Glucometer measurements AC with short acting insulin coverage while acutely ill, will decrease sliding scale to moderate from resistant, continue to hold her usual home medical therapy. discussed with DR Willett Qualifiers: Diabetes mellitus long-term insulin use: without long-term use Diabetes mellitus complication status: without complication Qualified Code(s): E11.9 - Type 2 diabetes mellitus without complications Subjective Subjective Patient reports: no new complaints, tolerating liquids well, tolerating a regular diet and afebrile; denies nausea, vomiting or shortness of breath Exam Const General: cooperative, no acute distress, frail appearing and ill appearing chronically (older than stated age) Nutritional Appearance: obese Orientation: alert, awake and oriented to person [facility] Head: normal to inspection, normocephalic and atraumatic Mouth: oral mucosae normal Chest Chest: normal inspection of the chest Resp Effort & Inspection: normal respiratory effort Auscultation: diminished lung sounds and no wheezes Cardio Rate: regular rate GI Inspection: normal to inspection Palpation: soft Skin General skin exam: no rashes or lesions noted Neuro General: patient alert, patient awake and patient oriented x3 Extrem General: normal to inspection and no calf tenderness Objective Last Vital Signs Temp 37.7 C H 02/17/22 15:00 Pulse 80 02/17/22 15:00 Resp 22 02/17/22 15:00 BP 133/66 02/17/22 15:00 Pulse Ox 86 L 02/17/22 15:00 Laboratory Results - last 24 hr 02/16/22 02/16/22 02/16/22 20:54 20:54 20:54 WBC 24.88 H RBC 3.97 Hgb 11.3 Hct 37.8 MCV 95 MCH 28.5 MCHC 29.9 L RDW 15.6 H Plt Count 310 MPV 9.0 Immature Gran % 0.6 Neutrophils % 84.3 Lymphocytes % 7.8 Monocytes % 6.2 Eosinophils % 0.9 Basophils % 0.2 Nucleated RBC % 0.0 Absolute Neutrophils 20.97 H Absolute Lymphocytes 1.94 Absolute Monocytes 1.54 H Absolute Eosinophils 0.22 Absolute Basophils 0.05 RBC Morphology Normal PT INR APTT VBG pH VBG pCO2 VBG pO2 VBG HCO3 VBG Total CO2 VBG O2 Saturation VBG Base Excess VBG Lactate 1.9 H Sodium 136 Potassium 4.1 Chloride 93 L Carbon Dioxide 41.8 H Anion Gap 1.2 L BUN 18 Creatinine 1.1 H Est GFR (CKD-EPI 2020) 53.06 Glucose 127 H Calcium 9.2 Total Bilirubin 0.3 AST 20 ALT 17 Alkaline Phosphatase 71 Troponin I < 50 NT-Pro-B Natriuret Pep 195 Total Protein 7.3 Albumin 3.1 L Procalcitonin < 0.1 COVID-19 Source SARS-CoV-2 (PCR) Influenza Type A (PCR) Influenza Type B (PCR) RSV (PCR) 02/16/22 02/16/22 02/16/22 20:54 20:54 21:06 WBC RBC Hgb Hct MCV MCH MCHC RDW Plt Count MPV Immature Gran % Neutrophils % Lymphocytes % Monocytes % Eosinophils % Basophils % Nucleated RBC % Absolute Neutrophils Absolute Lymphocytes Absolute Monocytes Absolute Eosinophils Absolute Basophils RBC Morphology PT 10.3 INR 1.0 APTT 30.8 H VBG pH 7.41 VBG pCO2 68 H* VBG pO2 55 VBG HCO3 44 H VBG Total CO2 40 H VBG O2 Saturation 88 VBG Base Excess > 15 H VBG Lactate Sodium Potassium Chloride Carbon Dioxide Anion Gap BUN Creatinine Est GFR (CKD-EPI 2020) Glucose Calcium Total Bilirubin AST ALT Alkaline Phosphatase Troponin I NT-Pro-B Natriuret Pep Total Protein Albumin Procalcitonin COVID-19 Source Nasopharynx SARS-CoV-2 (PCR) Negative Influenza Type A (PCR) Negative Influenza Type B (PCR) Negative RSV (PCR) Negative 02/17/22 02/17/22 00:15 07:25 WBC 29.32 H* RBC 4.07 Hgb 11.9 Hct 38.6 MCV 95 MCH 29.2 MCHC 30.8 L RDW 15.5 H Plt Count 275 MPV 9.0 Immature Gran % 0.8 Neutrophils % 85.8 Lymphocytes % 6.0 Monocytes % 6.1 Eosinophils % 1.0 Basophils % 0.3 Nucleated RBC % 0.0 Absolute Neutrophils 25.16 H Absolute Lymphocytes 1.76 Absolute Monocytes 1.79 H Absolute Eosinophils 0.29 Absolute Basophils 0.09 RBC Morphology Normal PT INR APTT VBG pH VBG pCO2 VBG pO2 VBG HCO3 VBG Total CO2 VBG O2 Saturation VBG Base Excess VBG Lactate Sodium Potassium Chloride Carbon Dioxide Anion Gap BUN Creatinine Est GFR (CKD-EPI 2020) Glucose Calcium Total Bilirubin AST ALT Alkaline Phosphatase Troponin I < 50 NT-Pro-B Natriuret Pep Total Protein Albumin Procalcitonin COVID-19 Source SARS-CoV-2 (PCR) Influenza Type A (PCR) Influenza Type B (PCR) RSV (PCR)
--- NOTE | 2022-02-17 17:14 | PDOC.CMIN ---
- If Service Date Differs Date of service: 02/17/22 Time of Service: 17:14 Care Management Initial Assess REASON FOR HOSPITALIZATION:: [facility] Pneumonia, Acute CHF PAST MEDICAL HISTORY/PAST SURGICAL HISTORY:: All Active Problems. Pneumonia (Acute). Abnormal MRI (Acute). 01/19/20. Personal history of nicotine dependence (Acute). Acute on chronic diastolic CHF (congestive heart failure), NYHA class 1 (Acute). Acute on chronic respiratory failure with hypoxia and hypercapnia (Acute). Onychomycosis (Acute). Anterior epistaxis (Acute). Pulmonary nodule (Acute). Morbid obesity (Acute). Vitamin D deficiency (Acute). MRSA (methicillin resistant staph aureus) culture positive (Acute). Hypoxia (Acute). Hypothyroidism (Chronic). Bilateral cellulitis of lower leg (Acute). Localized swelling of both lower legs (Acute). On amiodarone therapy (Acute). Palliative care patient (Acute). Cellulitis of left lower leg (Acute). Plaque psoriasis (Acute). GERD (gastroesophageal reflux disease) (Chronic). Hypercholesterolemia (Acute). Obesity (Chronic). CHF (congestive heart failure) (Chronic). Family history unobtainable due to patient's condition (Acute). Medical History. Acute and chronic respiratory failure with hypercapnia. Acute exacerbation of chronic obstructive pulmonary disease. Acute on chronic respiratory failure with hypoxia and hypercapnia. Acute respiratory distress. Acute respiratory distress. Altered mental status. Arthritis. Atrial fibrillation. Cellulitis. bilateral lower extremities. Cellulitis. CHF (congestive heart failure). Chronic atrial fibrillation, unspecified. Chronic respiratory failure with hypoxia. COPD (chronic obstructive pulmonary disease). Diabetes mellitus. HCAP (healthcare-associated pneumonia). HCAP (healthcare-associated pneumonia). HCAP (healthcare-associated pneumonia). Hypercarbia. Methicillin susceptible Staphylococcus aureus infection as the cause of diseases classified elsewhere. Mood disorder. Morbid (severe) obesity with alveolar hypoventilation. Muscle weakness (generalized). Obesity. Pneumonia. Sepsis. Sepsis. Streptococcal bacteremia. Toxic metabolic encephalopathy. Type 2 diabetes mellitus. Type 2 diabetes mellitus with hyperglycemia. Surgical History. H/O hand surgery. right index finger removal of tendon sheath ganglion. H/O: hysterectomy. History of carpal tunnel surgery of right wrist. History of excision of lesion. abdominal cyst removed. S/P appendectomy PREVIOUS FUNCTIONAL STATUS/SOCIAL/FAMILY SUPPORTS:: Marlen is a resident of the [facility]. She previously lived in a level three facility in [place], [place], but was relocated to the [facility] when the [facility] closed. She has a daughter, Karlie, who lives locally and is supportive. Marlen needs assistance with her ADLs which is provided by staff at the [facility]. CURRENT FUNCTIONAL STATUS:: Mralen was sleeping when CM attempted to meet with her. Per report, she would benefit from her Trilogy machine, which is currently at the [facility]. Her WBC is elevated. She is being treated with Azactam, doxycycline, and vanco for HCAP. CM will continue to follow. ADVANCE DIRECTIVES:: On file; daughter Karlie Salazar is appointed as Health Care Agent. Has patient been provided with info about the portal/API?: Yes Did the patient sign up for the portal?: No CODE STATUS:: DNR/DNI INSURANCE COVERAGE / FINANCIAL ISSUES:: Medicare and Medicaid. CURRENT HOME/COMMUNITY SERVICES/EQUIPMENT:: Marlen has a FWW and a wheelchair, and a Trilogy machine. She currently lives at the [facility] where she receives assistance with her care. She is a Palliative Care patient. PRIMARY CARE PHYSICIAN:: Evi Cloud. POTENTIAL DISCHARGE NEEDS:: Follow up appointment with PCP and coordinated return to the [facility]. PATIENT/FAMILY EDUCATION NEEDS:: Review discharge instructions, limitations and plan of care; discuss Ask Me Three and self management needs. ANTICIPATED BARRIERS TO DISCHARGE:: None. TRANSPORTATION:: Via [facility] [email or web address] wheelchair van. PLAN:: Anticipate Marlen will return to the [facility] when medically cleared by provider. She will follow up with her PCP and discharge plan of care as directed. She will be transported to the [facility] by [facility] [[email or web address]] wheelchair van coordinated by CM when ready. Palliative consult is ordered, to discuss goals of care. CM will continue to follow.
--- NOTE | 2022-02-17 19:09 | PGE_ITS ---
Date of Service Date of service: 02/17/22 Time of Service: 19:09 Exam Narrative Exam Narrative: SPO2 86% on 5 LPM - she is on trilogy @ [facility] - the unit is there; she has been on CPAP and BiPAP on previous admissions - requested RT evaluate Discussed with Dr Willett Objective Last Vital Signs Temp 37.7 C H 02/17/22 15:00 Pulse 80 02/17/22 15:00 Resp 22 02/17/22 15:00 BP 133/66 02/17/22 15:00 Pulse Ox 86 L 02/17/22 15:00 Laboratory Results - last 24 hr 02/16/22 02/16/22 02/16/22 20:54 20:54 20:54 WBC 24.88 H RBC 3.97 Hgb 11.3 Hct 37.8 MCV 95 MCH 28.5 MCHC 29.9 L RDW 15.6 H Plt Count 310 MPV 9.0 Immature Gran % 0.6 Neutrophils % 84.3 Lymphocytes % 7.8 Monocytes % 6.2 Eosinophils % 0.9 Basophils % 0.2 Nucleated RBC % 0.0 Absolute Neutrophils 20.97 H Absolute Lymphocytes 1.94 Absolute Monocytes 1.54 H Absolute Eosinophils 0.22 Absolute Basophils 0.05 RBC Morphology Normal PT INR APTT VBG pH VBG pCO2 VBG pO2 VBG HCO3 VBG Total CO2 VBG O2 Saturation VBG Base Excess VBG Lactate 1.9 H Sodium 136 Potassium 4.1 Chloride 93 L Carbon Dioxide 41.8 H Anion Gap 1.2 L BUN 18 Creatinine 1.1 H Est GFR (CKD-EPI 2020) 53.06 Glucose 127 H Calcium 9.2 Total Bilirubin 0.3 AST 20 ALT 17 Alkaline Phosphatase 71 Troponin I < 50 NT-Pro-B Natriuret Pep 195 Total Protein 7.3 Albumin 3.1 L Procalcitonin < 0.1 COVID-19 Source SARS-CoV-2 (PCR) Influenza Type A (PCR) Influenza Type B (PCR) RSV (PCR) 02/16/22 02/16/22 02/16/22 20:54 20:54 21:06 WBC RBC Hgb Hct MCV MCH MCHC RDW Plt Count MPV Immature Gran % Neutrophils % Lymphocytes % Monocytes % Eosinophils % Basophils % Nucleated RBC % Absolute Neutrophils Absolute Lymphocytes Absolute Monocytes Absolute Eosinophils Absolute Basophils RBC Morphology PT 10.3 INR 1.0 APTT 30.8 H VBG pH 7.41 VBG pCO2 68 H* VBG pO2 55 VBG HCO3 44 H VBG Total CO2 40 H VBG O2 Saturation 88 VBG Base Excess > 15 H VBG Lactate Sodium Potassium Chloride Carbon Dioxide Anion Gap BUN Creatinine Est GFR (CKD-EPI 2020) Glucose Calcium Total Bilirubin AST ALT Alkaline Phosphatase Troponin I NT-Pro-B Natriuret Pep Total Protein Albumin Procalcitonin COVID-19 Source Nasopharynx SARS-CoV-2 (PCR) Negative Influenza Type A (PCR) Negative Influenza Type B (PCR) Negative RSV (PCR) Negative 02/17/22 02/17/22 00:15 07:25 WBC 29.32 H* RBC 4.07 Hgb 11.9 Hct 38.6 MCV 95 MCH 29.2 MCHC 30.8 L RDW 15.5 H Plt Count 275 MPV 9.0 Immature Gran % 0.8 Neutrophils % 85.8 Lymphocytes % 6.0 Monocytes % 6.1 Eosinophils % 1.0 Basophils % 0.3 Nucleated RBC % 0.0 Absolute Neutrophils 25.16 H Absolute Lymphocytes 1.76 Absolute Monocytes 1.79 H Absolute Eosinophils 0.29 Absolute Basophils 0.09 RBC Morphology Normal PT INR APTT VBG pH VBG pCO2 VBG pO2 VBG HCO3 VBG Total CO2 VBG O2 Saturation VBG Base Excess VBG Lactate Sodium Potassium Chloride Carbon Dioxide Anion Gap BUN Creatinine Est GFR (CKD-EPI 2020) Glucose Calcium Total Bilirubin AST ALT Alkaline Phosphatase Troponin I < 50 NT-Pro-B Natriuret Pep Total Protein Albumin Procalcitonin COVID-19 Source SARS-CoV-2 (PCR) Influenza Type A (PCR) Influenza Type B (PCR) RSV (PCR)
[2022-02-17] MEDS: Albuterol 2.5 MG/3 ML INH SOLN VIAL UPD (20:10)
[2022-02-18] VITALS (7 sets, daily range): BP systolic 102–146; BP diastolic 61–74; PULSE 63–85; RESP 7–22; TEMP 36.6–37.4; O2SAT 93–99
[2022-02-18] MEDS: DOXYCYCLINE 100 MG in Normal Saline 100 ML IVPB ×3 (00:37→23:12)
[2022-02-18] MEDS: VANCOMYCIN/WATER (PEG) 1.25 GM/250 ML BAG IV ×2 (01:54→17:05)
[2022-02-18 06:07] LABS: Abs Immature Grans 0.28 10^3/uL (0.0-0.06); Absolute Eosinophil Count 0.51 10^3/uL (0.0-0.7); Absolute Lymphocyte Count 1.39 10^3/uL (1.2-3.4); Absolute Neutrophil Count 26.42 10^3/uL (1.2-6.7); Basophils % 0.3; Eosinophils % 1.7; HCT 36.4 % (36.0-46.0); Immature Grans % 0.9; Lymphocytes % 4.6; MCH 28.9 pg (27.0-33.0); MCHC 30.2 % (32.0-36.0); MCV 96 fL (80-95); MPV 9.2 fL (8.0-11.0); Monocytes % 5.1; Neutrophils % 87.4; Platelet Count 287 10^3/uL (130-400); RDW 15.6 % (11.7-14.6); RDW-SD 54.7 fL
[2022-02-18 06:22] LABS: Absolute Basophil Count 0.09 10^3/uL (0.0-0.2); Absolute Monocyte Count 1.54 10^3/uL (0.1-0.8)
[2022-02-18 06:24] LABS: Magnesium 1.9 mg/dL (1.8-2.4); WBC 30.23 10^3/uL (4.4-10.8)
[2022-02-18] MEDS: Levothyroxine 100 MCG TAB PO (06:26)
[2022-02-18] MEDS: dilTIAZem 60 MG TAB PO ×4 (06:26→23:09)
[2022-02-18 06:36] LABS: C-Reactive Protein > 25.00 mg/dL (0.0-0.3)
[2022-02-18 06:46] LABS: Albumin 2.5 g/dL (3.4-5.0); Alkaline Phosphatase 82 U/L (46-116); BUN 16 mg/dL (7-18); Bilirubin, Total 0.4 mg/dL (0.2-1.0); CREATININE 0.8 mg/dL (0.55-1.02); Calcium 8.7 mg/dL (8.5-10.1); Chloride 93 mmol/L (98-107); Estimated GFR 77.75 (mL/min/1.73m2); Glucose 120 mg/dL (74-106); Sodium 137 mmol/L (136-145); Total Protein 6.8 g/dL (6.4-8.2)
[2022-02-18 06:47] LABS: ALT 8 U/L (14-59); AST 16 U/L (15-37); Potassium 3.1 mmol/L (3.5-5.1)
[2022-02-18 06:56] LABS: Diff Comment Diff Reviewed; RBC Morphology Normal
[2022-02-18] MEDS: Apixaban 5 MG TAB PO ×2 (08:47→19:19)
[2022-02-18] MEDS: busPIRone 5 MG TAB 10 MG PO ×2 (08:47→19:19)
[2022-02-18] MEDS: Potassium Chloride 20 MEQ TABCR PO ×3 (08:47→17:04)
[2022-02-18] MEDS: Pantoprazole 20 MG TABCR PO ×2 (08:47→19:19)
[2022-02-18] MEDS: Torsemide 20 MG TAB 60 MG PO ×2 (08:47→15:22)
[2022-02-18] MEDS: Citalopram 10 MG TAB PO (08:47)
[2022-02-18] MEDS: Polyethylene Glycol 3350 17 GM PACKET PO (08:47)
[2022-02-18] MEDS: Amiodarone 200 MG TAB PO (08:47)
[2022-02-18 09:25] LABS: Lab Add On Test DONE
[2022-02-18 09:55] LABS: Procalcitonin 0.7 ng/mL
[2022-02-18] MEDS: Budesonide/Formoterol 80/4.5 6.9 GM 60 PUFF INH IH (10:59)
--- NOTE | 2022-02-18 16:24 | PGE_ITS ---
Date of Service Date of service: 02/18/22 Time of Service: 16:24 Assessment and Plan Assessment and plan (1) HCAP (healthcare-associated pneumonia): Assessment and plan: continue day 3 ceftriaxone, doxycycline and vancomycin. She is a DNR/DNI but aggressive therapy of reversible problems will be continued. home ventilator (trilogy) at night and may need positive pressure treatment during the day with her acute respiratory status. (2) Acute on chronic respiratory failure with hypoxia and hypercapnia: Status: Acute Assessment and plan: as above. (3) CHF (congestive heart failure): Assessment and plan: Last echocardiogram in December 2020 revealed preserved left ventricular tract fraction at 58% and no wall motion abnormalities as well as normal RV function with no mention of PA pressures. up date when available. continue diuresis. Hoffmann catheterr to monitor output more accurately and also because of patient discomfort moving around in bed with respiratory distress. (4) Atrial fibrillation: Assessment and plan: Continue outpatient medical therapy with diltiazem and amiodarone splitting the dose of diltiazem watching for hypotension or bradycardia. anticoagulated on Eliquis. Qualifiers: Atrial fibrillation type: persistent (not longstanding) Qualified Code(s): I48.19 - Other persistent atrial fibrillation (5) Type 2 diabetes mellitus: Assessment and plan: Glucometer measurements AC with short acting insulin coverage while acutely ill, will decrease sliding scale to moderate from resistant, continue to hold her usual home medical therapy. discussed with DR Willett Qualifiers: Diabetes mellitus continuous churn buttermaker insulin use: without shelter use Diabetes mellitus complication status: without complication Qualified Code(s): E11.9 - Type 2 diabetes mellitus without complications Subjective Subjective Patient reports: no new complaints, feels better, tolerating liquids well, tolerating a regular diet, voiding w/o difficulty, shortness of breath and afebrile Exam Const General: cooperative, no acute distress, frail appearing and ill appearing chronically (older than stated age) Nutritional Appearance: obese Orientation: alert, awake and oriented to person [facility] Head: normal to inspection, normocephalic and atraumatic Mouth: oral mucosae normal Chest Chest: normal inspection of the chest Resp Effort & Inspection: normal respiratory effort Auscultation: diminished lung sounds and no wheezes Cardio Rate: regular rate GI Inspection: normal to inspection Palpation: soft Skin General skin exam: no rashes or lesions noted Neuro General: patient alert, patient awake and patient oriented x3 Extrem General: normal to inspection and no calf tenderness Objective Last Vital Signs Temp 36.9 C 02/18/22 11:15 Pulse 85 02/18/22 11:15 Resp 22 02/18/22 11:15 BP 115/73 02/18/22 11:15 Pulse Ox 94 02/18/22 11:15 Laboratory Results - last 24 hr 02/18/22 02/18/22 02/18/22 05:42 05:42 05:42 WBC 30.23 H* RBC 3.80 L Hgb 11.0 L Hct 36.4 MCV 96 H MCH 28.9 MCHC 30.2 L RDW 15.6 H Plt Count 287 MPV 9.2 Immature Gran % 0.9 Neutrophils % 87.4 Lymphocytes % 4.6 Monocytes % 5.1 Eosinophils % 1.7 Basophils % 0.3 Nucleated RBC % 0.0 Absolute Neutrophils 26.42 H Absolute Lymphocytes 1.39 Absolute Monocytes 1.54 H Absolute Eosinophils 0.51 Absolute Basophils 0.09 RBC Morphology Normal Sodium 137 Potassium 3.1 L D Chloride 93 L Carbon Dioxide 39.0 H Anion Gap 5.0 BUN 16 Creatinine 0.8 Est GFR (CKD-EPI 2020) 77.75 Glucose 120 H Calcium 8.7 Magnesium 1.9 Total Bilirubin 0.4 AST 16 ALT 8 L Alkaline Phosphatase 82 C-Reactive Protein > 25.00 H Total Protein 6.8 Albumin 2.5 L Procalcitonin Add-On Test Request 02/18/22 02/18/22 05:42 05:42 WBC RBC Hgb Hct MCV MCH MCHC RDW Plt Count MPV Immature Gran % Neutrophils % Lymphocytes % Monocytes % Eosinophils % Basophils % Nucleated RBC % Absolute Neutrophils Absolute Lymphocytes Absolute Monocytes Absolute Eosinophils Absolute Basophils RBC Morphology Sodium Potassium Chloride Carbon Dioxide Anion Gap BUN Creatinine Est GFR (CKD-EPI 2020) Glucose Calcium Magnesium Total Bilirubin AST ALT Alkaline Phosphatase C-Reactive Protein Total Protein Albumin Procalcitonin 0.7 Add-On Test Request DONE
[2022-02-18] MEDS: Albuterol 2.5 MG/3 ML INH SOLN VIAL UPD (19:20)
[2022-02-18] MEDS: Nystatin POWDER 60 GM JAR TP (19:22)
[2022-02-18] MEDS: cefTRIAXone 2 GM/50 ML BAG IVPB (19:24)
[2022-02-18] MEDS: Docusate Sodium 100 MG CAP PO (23:09)
[2022-02-18] MEDS: traMADol 50 MG TAB 100 MG PO (23:10)
[2022-02-19] VITALS (7 sets, daily range): BP systolic 114–137; BP diastolic 58–77; PULSE 77–85; RESP 20–24; TEMP 36.5–37.2; O2SAT 92–97
[2022-02-19] MEDS: Levothyroxine 100 MCG TAB PO (04:59)
[2022-02-19] MEDS: dilTIAZem 60 MG TAB PO ×3 (04:59→23:06)
[2022-02-19 06:50] LABS: Abs Immature Grans 0.14 10^3/uL (0.0-0.06); Absolute Basophil Count 0.05 10^3/uL (0.0-0.2); Absolute Monocyte Count 1.24 10^3/uL (0.1-0.8); Basophils % 0.2; Eosinophils % 2.2; HGB 11.2 g/dL (11.2-15.7); Immature Grans % 0.6; Lymphocytes % 6.4; MCH 28.9 pg (27.0-33.0); MCHC 30.3 % (32.0-36.0); MCV 96 fL (80-95); MPV 9.1 fL (8.0-11.0); Monocytes % 5.3; Neutrophils % 85.3; Platelet Count 297 10^3/uL (130-400); RBC 3.87 10^6/uL (3.93-5.22); RDW 15.3 % (11.7-14.6); RDW-SD 52.9 fL; WBC 23.47 10^3/uL (4.4-10.8)
[2022-02-19 06:58] LABS: Absolute Eosinophil Count 0.52 10^3/uL (0.0-0.7); Absolute Neutrophil Count 20.02 10^3/uL (1.2-6.7)
[2022-02-19 07:06] LABS: Anion Gap 2.4 mmol/L (3-11); BUN 14 mg/dL (7-18); CO2 40.6 mmol/L (21.0-32.0); CREATININE 0.8 mg/dL (0.55-1.02); Calcium 9.2 mg/dL (8.5-10.1); Chloride 93 mmol/L (98-107); Estimated GFR 77.75 (mL/min/1.73m2); Glucose 133 mg/dL (74-106); Potassium 3.3 mmol/L (3.5-5.1); Sodium 136 mmol/L (136-145)
[2022-02-19 07:14] LABS: Diff Comment Diff Reviewed; Stomatocytes 2+
[2022-02-19] MEDS: Budesonide/Formoterol 80/4.5 6.9 GM 60 PUFF INH IH ×2 (07:27→21:05)
[2022-02-19] MEDS: Apixaban 5 MG TAB PO ×2 (08:59→21:04)
[2022-02-19] MEDS: Nystatin POWDER 60 GM JAR TP ×2 (08:59→21:06)
[2022-02-19] MEDS: Torsemide 20 MG TAB 60 MG PO ×2 (09:00→16:45)
[2022-02-19] MEDS: Pantoprazole 20 MG TABCR PO ×2 (09:00→21:04)
[2022-02-19] MEDS: Docusate Sodium 100 MG CAP PO (09:00)
[2022-02-19] MEDS: Amiodarone 200 MG TAB PO (09:00)
[2022-02-19] MEDS: busPIRone 5 MG TAB 10 MG PO ×2 (09:00→21:04)
[2022-02-19] MEDS: Potassium Chloride 20 MEQ TABCR PO ×3 (09:00→16:45)
[2022-02-19] MEDS: Citalopram 10 MG TAB PO (09:00)
[2022-02-19 09:34] LABS: Vancomycin, Trough 13.2 ug/mL (10.0-20.0)
[2022-02-19] MEDS: Normal Saline Flush 10 ML SYR IVP (10:05)
[2022-02-19] MEDS: VANCOMYCIN/WATER (PEG) 1.25 GM/250 ML BAG IV (10:05)
[2022-02-19] MEDS: POTASSIUM CHLORIDE 10 MEQ/100 ML BAG 30 MEQ IVPB (10:16)
[2022-02-19] MEDS: DOXYCYCLINE 100 MG in Normal Saline 100 ML IVPB ×2 (12:24→23:42)
--- NOTE | 2022-02-19 12:37 | W.PM.PROGNOT ---
Date of Service Date of service: 02/19/22 Time of Service: 12:38 Assessment and Plan Assessment and plan (1) HCAP (healthcare-associated pneumonia): Status: Acute Assessment and plan: no fever overnight, wbc trending down now. continue day 4 ceftriaxone, doxycycline and vancomycin. She is a DNR/DNI but aggressive therapy of reversible problems will be continued. (2) Acute on chronic respiratory failure with hypoxia and hypercapnia: Status: Acute Assessment and plan: as above. (3) CHF (congestive heart failure): Status: Chronic Assessment and plan: Last echocardiogram in December 2020 revealed preserved left ventricular tract fraction at 58% and no wall motion abnormalities as well as normal RV function with no mention of PA pressures. up date when available. continue diuresis. Hoffmann catheterr to monitor output more accurately and also because of patient discomfort moving around in bed with respiratory distress. (4) Atrial fibrillation: Status: Chronic Assessment and plan: Continue outpatient medical therapy with diltiazem and amiodarone splitting the dose of diltiazem watching for hypotension or bradycardia. anticoagulated on Eliquis. Qualifiers: Atrial fibrillation type: persistent (not longstanding) Qualified Code(s): I48.19 - Other persistent atrial fibrillation (5) Type 2 diabetes mellitus: Status: Chronic Assessment and plan: Glucometer measurements AC with short acting insulin coverage while acutely ill, blood sugars have been well controlled. Qualifiers: Diabetes mellitus complication status: without complication Diabetes mellitus detention insulin use: without detention use Qualified Code(s): E11.9 - Type 2 diabetes mellitus without complications (6) Discharge planning issues: Status: Acute Assessment and plan: anticipate discharge back to the [facility] tomorrow. discussed with DR Willett Subjective Subjective Patient reports: no new complaints, tolerating liquids well, tolerating a regular diet and afebrile; denies shortness of breath Exam Const General: cooperative and no acute distress Nutritional Appearance: obese Orientation: alert, awake and oriented to person [facility] Head: normal to inspection, normocephalic and atraumatic Mouth: oral mucosae normal Chest Chest: normal inspection of the chest Resp Effort & Inspection: normal respiratory effort Auscultation: diminished lung sounds and no wheezes Cardio Rate: regular rate GI Inspection: normal to inspection Palpation: soft Skin General skin exam: no rashes or lesions noted Neuro General: patient alert, patient awake and patient oriented x3 Extrem General: normal to inspection and no calf tenderness Objective Last Vital Signs Temp 36.6 C 02/19/22 12:14 Pulse 77 02/19/22 12:14 Resp 22 02/19/22 12:14 BP 135/71 02/19/22 12:14 Pulse Ox 97 02/19/22 12:14 Laboratory Results - last 24 hr 02/19/22 02/19/22 02/19/22 06:34 06:34 08:53 WBC 23.47 H RBC 3.87 L Hgb 11.2 Hct 37.0 MCV 96 H MCH 28.9 MCHC 30.3 L RDW 15.3 H Plt Count 297 MPV 9.1 Immature Gran % 0.6 Neutrophils % 85.3 Lymphocytes % 6.4 Monocytes % 5.3 Eosinophils % 2.2 Basophils % 0.2 Nucleated RBC % 0.0 Absolute Neutrophils 20.02 H Absolute Lymphocytes 1.50 Absolute Monocytes 1.24 H Absolute Eosinophils 0.52 Absolute Basophils 0.05 RBC Morphology See Below Stomatocytes 2+ Sodium 136 Potassium 3.3 L Chloride 93 L Carbon Dioxide 40.6 H Anion Gap 2.4 L BUN 14 Creatinine 0.8 Est GFR (CKD-EPI 2020) 77.75 Glucose 133 H Calcium 9.2 Vancomycin Trough 13.2
[2022-02-19] MEDS: POTASSIUM CHLORIDE 10 MEQ/100 ML BAG 50 MEQ IVPB (12:48)
[2022-02-19] MEDS: Insulin Aspart 300 UNITS/3 ML PEN SC (16:45)
[2022-02-19 20:52] LABS: Legionella Ag Detection Urine Negative (Negative)
[2022-02-19] MEDS: cefTRIAXone 2 GM/50 ML BAG IVPB (21:04)
[2022-02-19] MEDS: traMADol 50 MG TAB 100 MG PO (23:42)
[2022-02-20] MEDS: VANCOMYCIN/WATER (PEG) 1.25 GM/250 ML BAG IV (01:00)
[2022-02-20 03:36] VITALS: BP 132/71; PULSE 77; RESP 20; TEMP 36; O2SAT 98
[2022-02-20] MEDS: Levothyroxine 100 MCG TAB PO (05:40)
[2022-02-20] MEDS: dilTIAZem 60 MG TAB PO (05:40)
[2022-02-20 07:14] LABS: Abs Immature Grans 0.11 10^3/uL (0.0-0.06); Absolute Basophil Count 0.07 10^3/uL (0.0-0.2); Absolute Eosinophil Count 0.51 10^3/uL (0.0-0.7); Absolute Lymphocyte Count 1.37 10^3/uL (1.2-3.4); Basophils % 0.4; HCT 38.7 % (36.0-46.0); HGB 11.6 g/dL (11.2-15.7); Immature Grans % 0.7; Lymphocytes % 8.1; MCH 28.9 pg (27.0-33.0); MCV 96 fL (80-95); Monocytes % 6.9; Neutrophils % 80.9; Platelet Count 327 10^3/uL (130-400); RBC 4.02 10^6/uL (3.93-5.22); RDW 14.7 % (11.7-14.6); RDW-SD 52.5 fL; WBC 16.92 10^3/uL (4.4-10.8)
[2022-02-20 07:17] LABS: Absolute Monocyte Count 1.17 10^3/uL (0.1-0.8); Absolute Neutrophil Count 13.69 10^3/uL (1.2-6.7)
[2022-02-20 07:26] LABS: Anion Gap 2.4 mmol/L (3-11); BUN 15 mg/dL (7-18); CO2 43.6 mmol/L (21.0-32.0); CREATININE 0.7 mg/dL (0.55-1.02); Calcium 9.4 mg/dL (8.5-10.1); Chloride 92 mmol/L (98-107); Estimated GFR 91.26 (mL/min/1.73m2); Glucose 138 mg/dL (74-106); Potassium 3.2 mmol/L (3.5-5.1); Sodium 138 mmol/L (136-145)
--- NOTE | 2022-02-20 07:57 | W.PALLCONSUL ---
Date of service: 02/20/22 Time of Service: 07:57 History of Present Illness Narrative: From H and P History of Present Illness?Chief Complaint: Dyspnea with hypoxemia?Narrative: This is a 71-year-old female patient who resides at the [facility] with a history of CHF, chronic atrial fibrillation on Eliquis and amiodarone with Cardizem who also is oxygen dependent with morbid obesity and obstructive sleep apnea.? She does wear CPAP at night.? She recently has had increasing dyspnea and hypoxemia progressive with a pulse oximeter into the 70s at times.? EMS was called and at the time they saw her she was on increased oxygen supplement with pulse oximeter in the 90s.? She was given nebulizers and brought to the ED for evaluation where she was found to have probable institution acquired pneumonia and possibly exacerbation of her CHF though her BNP was not markedly elevated.? She did have a fever once she was brought to [facility] She did not have any evidence of UTI though this has been a problem in the past.? She is morbidly obese and not very mobile.? She also has diffuse skin changes which appear to be psoriasis with ulcerations.? She had her legs both wrapped in what looks like Unna boots.? Patient was not very communicative and grunting with increased oxygen supplement at the time I saw her.? She is a DNR/DNI.? She offers no further history. ?Interim Hx: Marlen is well-known to me. I have cared for her for years at the [facility] and also have seen her in the palliative round multiple times. Baseline she does have hypoxia. She is known to turn up her oxygen and increase her CO2 causing mental status changes. She often times has O2 sats in the 70s and 80s but quickly comes back with rest and with institution of her trilogy machine. This is made a huge difference for her and that she has only been hospitalized about half the times this year compared to last. Dr. Santiago, pulmonology has been responsible for her getting this machine and it is made a world of difference. Marlen does not know why she was in the hospital. She states that she was never told why she had to go to the hospital. And she is uncertain why she needs to continue to be in the hospital. She feels like she is at her baseline. She is upset because she had a Kebede placed. She states that they always place a Kebede and this makes it more cumbersome and difficult for her to return back to the [facility]. She does feel like she is at baseline and would like to go home i.e. back to the [facility] Consults Consult date: 02/20/22 Requesting physician: Shalini George Assessment and Plan Assessment and plan (1) Type 2 diabetes mellitus: Status: Chronic Qualifiers: Diabetes mellitus snf insulin use: without snf use Diabetes mellitus complication status: without complication Qualified Code(s): E11.9 - Type 2 diabetes mellitus without complications (2) Atrial fibrillation: Status: Chronic Qualifiers: Atrial fibrillation type: persistent (not longstanding) Qualified Code(s): I48.19 - Other persistent atrial fibrillation (3) CHF (congestive heart failure): Status: Chronic (4) Onychomycosis: Status: Acute (5) Morbid obesity: Status: Acute (6) Plaque psoriasis: Status: Acute (7) Palliative care patient: Status: Acute Assessment and plan: Hypokalemia?she will need additional potassium at this time. Hospitalist will be ordering this Marlen appears at this time to be at her baseline. Her white count is improving. Her clinical exam still has rales. That is not unusual for Marlen. Skin lesions?none of them look cellulitic, just irritated. She could use triamcinolone for this She would prefer to not have a Kebede in if possible. It is now out. She desperately wants to go home as soon as possible. Diabetes per protocol I will see her in follow-up for palliative care visits at the [facility] Review of Systems Constitutional Constitutional: Reports fatigue ENT Ears, Nose, Mouth, and Throat: Reports change in voice Cardiovascular Cardiovascular: Denies chest pain and Reports dyspnea on exertion Respiratory Respiratory: Reports cough (baseline) and Reports dyspnea on exertion Gastrointestinal Gastrointestinal: Reports system reviewed and no additional complaints, except as documented Genitourinary Genitourinary: Reports urinary incontinence Neurologic Neurologic: Reports abnormal movements (body habitus makes movement difficult) and Reports lack of coordination Psychiatric Psychiatric: Reports abnormal sleep pattern Endocrine Endocrine: Reports fatigue PFSH All Active Problems (Updated 02/20/22 @ 08:22 by Christa Shetty MD, DC) Palliative care patient (Acute) Type 2 diabetes mellitus (Chronic) Atrial fibrillation (Chronic) CHF (congestive heart failure) (Chronic) HCAP (healthcare-associated pneumonia) (Acute) Discharge planning issues (Acute) Pneumonia (Acute) Abnormal MRI (Acute) 01/19/20 Personal history of nicotine dependence (Acute) Acute on chronic diastolic CHF (congestive heart failure), NYHA class 1 (Acute) Acute on chronic respiratory failure with hypoxia and hypercapnia (Acute) Onychomycosis (Acute) Anterior epistaxis (Acute) Pulmonary nodule (Acute) Morbid obesity (Acute) Vitamin D deficiency (Acute) MRSA (methicillin resistant staph aureus) culture positive (Acute) Hypoxia (Acute) Hypothyroidism (Chronic) Bilateral cellulitis of lower leg (Acute) Localized swelling of both lower legs (Acute) On amiodarone therapy (Acute) Palliative care patient (Acute) Cellulitis of left lower leg (Acute) Plaque psoriasis (Acute) GERD (gastroesophageal reflux disease) (Chronic) Hypercholesterolemia (Acute) Obesity (Chronic) CHF (congestive heart failure) (Chronic) Family history unobtainable due to patient's condition (Acute) Medical History Acute and chronic respiratory failure with hypercapnia Acute exacerbation of chronic obstructive pulmonary disease Acute on chronic respiratory failure with hypoxia and hypercapnia Acute respiratory distress Acute respiratory distress Altered mental status Arthritis Atrial fibrillation Cellulitis bilateral lower extremities Cellulitis CHF (congestive heart failure) Chronic atrial fibrillation, unspecified Chronic respiratory failure with hypoxia COPD (chronic obstructive pulmonary disease) Diabetes mellitus HCAP (healthcare-associated pneumonia) HCAP (healthcare-associated pneumonia) HCAP (healthcare-associated pneumonia) Hypercarbia Methicillin susceptible Staphylococcus aureus infection as the cause of diseases classified elsewhere Mood disorder Morbid (severe) obesity with alveolar hypoventilation Muscle weakness (generalized) Obesity Pneumonia Sepsis Sepsis Streptococcal bacteremia Toxic metabolic encephalopathy Type 2 diabetes mellitus Type 2 diabetes mellitus with hyperglycemia Surgical History H/O hand surgery right index finger removal of tendon sheath ganglion H/O: hysterectomy History of carpal tunnel surgery of right wrist History of excision of lesion abdominal cyst removed S/P appendectomy Family History Father Heart disease 2 [place], at 62 Mother Heart disease Social History Smoking/Tobacco Use Status: Former Tobacco Use Smoking risk assessment performed?: Yes Alcohol Intake: never Drug use: Never Substance use type: does not use Do you feel safe at home: Yes Do you feel safe in your relationship?: Yes Exam Const General: cooperative, no acute distress, anxious and frail appearing Nutritional Appearance: obese Orientation: oriented x3 HENMT Head: normal to inspection Eyes General: appearance normal, both eyes and all related structures Chest Chest: tenderness and rash Resp Effort & Inspection: able to speak in complete sentences Auscultation: crackles on the left 1/[address] up and bilaterally Cardio Jugular venous pressure: other Rate: regular rate Rhythm: other (difficult to auscultate) GI Inspection: large pannus and obesity Palpation: soft General: other (kebede out) Skin General skin exam: atrophy and dry skin Lesions: lesion noted (multiple red areas throughout body) Nails: clubbing, dystrophic and yellow and thickened Extrem General: other (compression stockings in place) Psych Mood: anxious mood Results Last Vital Signs Temp 96.8 F L 02/20/22 03:36 Pulse 77 02/20/22 03:36 Resp 20 02/20/22 03:36 BP 132/71 02/20/22 03:36 Pulse Ox 98 02/20/22 03:36 Laboratory Tests 02/16/22 02/19/22 02/20/22 20:54 06:34 07:00 WBC 23.47 H VBG pCO2 68 H* VBG Total CO2 40 H Potassium 3.2 L 02/20/22 07:00 WBC 16.92 H VBG pCO2 VBG Total CO2 Potassium Labs Result diagrams: 02/20/22 07:00 02/20/22 07:00 Labs: Laboratory Results - last 24 hr 02/19/22 02/20/22 02/20/22 08:53 07:00 07:00 WBC 16.92 H RBC 4.02 Hgb 11.6 Hct 38.7 MCV 96 H MCH 28.9 MCHC 30.0 L RDW 14.7 H Plt Count 327 MPV 9.0 Immature Gran % 0.7 Neutrophils % 80.9 Lymphocytes % 8.1 Monocytes % 6.9 Eosinophils % 3.0 Basophils % 0.4 Nucleated RBC % 0.0 Absolute Neutrophils 13.69 H Absolute Lymphocytes 1.37 Absolute Monocytes 1.17 H Absolute Eosinophils 0.51 Absolute Basophils 0.07 Sodium 138 Potassium 3.2 L Chloride 92 L Carbon Dioxide 43.6 H Anion Gap 2.4 L BUN 15 Creatinine 0.7 Est GFR (CKD-EPI 2020) 91.26 Glucose 138 H Calcium 9.4 Vancomycin Trough 13.2 Imaging Imaging Studies: CXR EDIASTINUM: Normal.? HEART: Cardiomegaly.? PULMONARY VASCULATURE: There is mild pulmonary venous congestion.? LUNGS: Mild interstitial edema is seen.? No focal consolidating infiltrates present. ? PLEURAL SPACE: No pleural effusion or pneumothorax. BONE:Within normal limits for the patient's age. OTHER FINDINGS:Normal.? IMPRESSION: Findings suspicious for CHF.? Please correlate clinically.?
[2022-02-20 08:00] VITALS: BP 118/69; PULSE 81; RESP 19; TEMP 36.8; O2SAT 95
[2022-02-20 08:03] VITALS: TEMP 34
[2022-02-20] MEDS: Budesonide/Formoterol 80/4.5 6.9 GM 60 PUFF INH IH (08:05)
[2022-02-20] MEDS: Polyethylene Glycol 3350 17 GM PACKET PO (09:13)
[2022-02-20] MEDS: Pantoprazole 20 MG TABCR PO (09:14)
[2022-02-20] MEDS: Citalopram 10 MG TAB PO (09:14)
[2022-02-20] MEDS: Torsemide 20 MG TAB 60 MG PO (09:15)
[2022-02-20] MEDS: Potassium Chloride 20 MEQ TABCR PO ×2 (09:15→12:24)
[2022-02-20] MEDS: busPIRone 5 MG TAB 10 MG PO (09:15)
[2022-02-20] MEDS: Amiodarone 200 MG TAB PO (09:15)
[2022-02-20] MEDS: Apixaban 5 MG TAB PO (09:15)
--- NOTE | 2022-02-20 09:24 | W.PM.PROGNOT ---
Date of Service Date of service: 02/20/22 Time of Service: 09:24 Objective Last Vital Signs Temp 36.8 C 02/20/22 08:00 Pulse 81 02/20/22 08:00 Resp 19 02/20/22 08:00 BP 118/69 02/20/22 08:00 Pulse Ox 95 02/20/22 08:00 Laboratory Results - last 24 hr 02/19/22 02/20/22 02/20/22 08:53 07:00 07:00 WBC 16.92 H RBC 4.02 Hgb 11.6 Hct 38.7 MCV 96 H MCH 28.9 MCHC 30.0 L RDW 14.7 H Plt Count 327 MPV 9.0 Immature Gran % 0.7 Neutrophils % 80.9 Lymphocytes % 8.1 Monocytes % 6.9 Eosinophils % 3.0 Basophils % 0.4 Nucleated RBC % 0.0 Absolute Neutrophils 13.69 H Absolute Lymphocytes 1.37 Absolute Monocytes 1.17 H Absolute Eosinophils 0.51 Absolute Basophils 0.07 Sodium 138 Potassium 3.2 L Chloride 92 L Carbon Dioxide 43.6 H Anion Gap 2.4 L BUN 15 Creatinine 0.7 Est GFR (CKD-EPI 2020) 91.26 Glucose 138 H Calcium 9.4 Vancomycin Trough 13.2
[2022-02-20] MEDS: Nystatin POWDER 60 GM JAR TP (09:49)
[2022-02-20] MEDS: Potassium Chloride 20 MEQ TABCR 40 MEQ PO (12:23)
--- NOTE | 2022-02-20 12:42 | DSE_ITS ---
Date of service: 02/20/22 Time of Service: 12:42 DS: Diagnosis Discharge Diagnosis (1) Type 2 diabetes mellitus: Status: Chronic Asessment and Plan: Back to baseline; continue home regime (2) Atrial fibrillation: Status: Chronic Asessment and Plan: Stable; no CP, rates < 100 bpm @ rest (3) CHF (congestive heart failure): Status: Chronic Asessment and Plan: Oxygenating well - > 90%, some bibasilar rales (4) Onychomycosis: Status: Acute Asessment and Plan: chronic (5) Morbid obesity: Status: Acute (6) Plaque psoriasis: Status: Acute Discharge Plan Disposition Patient Disposition: [facility] Facility(SNF) Condition: Improving Discharge Details Reason For Visit: [facility] Pneumonia, Acute CHF Admit Date/Time: 02/16/22 23:12 Admit Provider: Shaka Sandoval Attending Provider: Shaka Sandoval Primary Care Provider: Evi Cloud Hospital Course Hospital Course: This is a 71-year-old female patient who resides at the [facility] with a past medical history of CHF, chronic atrial fibrillation on Eliquis and amiodarone with Cardizem, who also is oxygen dependent with morbid obesity and obstructive sleep apnea.? She does wear CPAP at night.?On the day of admission, she had increasing dyspnea and hypoxemia with a pulse oximeter into the 70s.? She was given nebulizers and was taken to the [facility] ED for evaluation where she was found to have probable institution acquired pneumonia and possibly exacerbation of her CHF though her BNP was not markedly elevated.? Patient developed a fever.? She did not have any evidence of UTI.? She is morbidly obese and not very mobile.? She also has diffuse skin changes which appear to be psoriasis with ulcerations.? Her legs were both wrapped.? She was admitted to the hospital for antibiotics and management of pneumonia.? She was started on Ceftriazone and Doxycycline IV.? She is being discharged with Cefpodoxime for 7 days and Doxycycline for 2 more days to complete the course. She is also being started on Mupirocin ointment nasally twice a day for presumed colonization with positive MRSA per nare, and has negative blood cultures for 72 hours. She has been hypokalemic here and it was repleted.? She is being discharged with an increase in her daily potassium. She has no fever other vital signs are stable, at her baseline as well as her lung sounds being distant, but still some rales, also her norm.?Her torsemide is increased to 60 mg twice a day. She is not acutely short of breath. She does have skin lesion, none of which look like cellulitis, although they are irritated and might benefit from triamcinolone cream.? She feels she is back to baseline and agrees with the plan for her to return to the correction today. Home Meds and New Rx's Prescriptions: New albuterol sulfate 2.5 mg /3 mL (0.083 %) Solution For Nebulization 2.5 mg UPD Q2H PRN PRNQty: 75 0RF ipratropium-albuterol 0.5 mg-3 mg(2.5 mg base)/3 mL Solution For Nebulization 3 ml UPD Q6H PRN PRNQty: 90 0RF cefpodoxime 200 mg tablet 200 mg PO BID 7 Days Qty: 14 0RF Rx Instructions: must administer with a meal/food doxycycline hyclate 100 mg capsule 100 mg PO BID Qty: 3 0RF mupirocin 2 % ointment 1 applic topical BID Qty: 22 0RF triamcinolone acetonide 0.1 % cream 1 applic topical BID Qty: 30 0RF Continued pantoprazole 20 mg tablet,delayed release (DR/EC) 20 mg PO BID metformin 500 mg tablet 750 mg PO TID Rx Instructions: 1000mg BID Stiolto Respimat 2.5-2.5 mcg/actuation mist 2 puff inhalation DAILY Qty: 4 12RF Deep Sea Nasal 0.65 % aerosol,spray 4 spray NS QID PRN PRN Rx Instructions: 1 spray each nostril QID budesonide-formoterol [Symbicort] 80-4.5 mcg/actuation HFA aerosol inhaler 2 puff inhalation Q12H calcium carbonate [Tums] 200 mg calcium (500 mg) tablet,chewable 400 mg PO Q4H PRN (Reason: dyspepsia) tramadol 100 mg tablet 100 mg PO BID PRN (DME) BiPap See Rx Instructions .Route .MEDSUPPLY Qty: 1 0RF Rx Instructions: See internal note cholecalciferol (vitamin D3) 1,250 mcg (50,000 unit) capsule 1,250 mcg PO QWEEK hydrocortisone 2.5 % cream 1 applic topical BID PRN ketoconazole 2 % cream 1 applic topical BID triamcinolone acetonide 0.1 % ointment 1 applic topical BID aluminum hydroxide Ointment 1 applic topical DAILY citalopram 10 mg tablet 10 mg PO DAILY buspirone 10 mg tablet 10 mg PO BID diltiazem HCl [DILT-XR] 240 mg capsule,ext.rel 24h degradable 240 mg PO QAM acetaminophen [Tylenol] 325 mg Tablet 650 mg PO Q4H PRN epinephrine 0.3 mg/0.3 mL Auto-Injector 0.3 mg IM PRN PRN amiodarone 200 mg tablet 200 mg PO DAILY albuterol sulfate 90 mcg/actuation HFA aerosol inhaler 2 inh INHALATION .Q4H,PRN PRN Rx Instructions: TID PRN Per MAR tolterodine 4 mg capsule,extended release 24hr 4 mg PO DAILY AM insulin glargine [Lantus Solostar U-100 Insulin] 100 unit/mL (3 mL) Insulin Pen 20 unit SUBCUT HS Qty: 0 0RF potassium chloride 10 mEq tablet extended release 10 meq PO DAILY AM Rx Instructions: 20mEq levothyroxine 100 mcg Tablet 100 mcg PO HS insulin aspart U-100 100 unit/mL (3 mL) Insulin Pen 1 sliding scale dose SUBCUT USEASDIRECTD Rx Instructions: <110=0 units, 111-150=6 units, 151-200=10 units,201-250=12units,251-300=15 units, 301-150=18units, >350=20units and call physician Trulicity 1.5 mg/0.5 mL pen injector 1.5 mg SUBCUT QWEEK polyethylene glycol 3350 [Miralax] 17 gram/dose powder 17 g PO DAILY Rx Instructions: PRN vitamin B complex Tablet 1 tab PO DAILY apixaban 2.5 mg tablet 2.5 mg PO BID Qty: 20 0RF tramadol 100 mg tablet 50 mg PO DAILY PRN Rx Instructions: TID MAX 400mg daily insulin aspart U-100 [Novolog Flexpen U-100 Insulin] 100 unit/mL (3 mL) Insulin Pen 1 sliding scale dose SUBCUT USEASDIRECTD cholecalciferol (vitamin D3) [Vitamin D3] 50 mcg (2,000 unit) Capsule 1,000 unit PO 1XD Eliquis 5 mg Tablet 5 mg PO BID Changed torsemide 20 mg tablet 60 mg PO BID DIURETIC Qty: 0 0RF Rx Instructions: 60mg BID potassium chloride 20 mEq tablet,ER particles/crystals 20 meq PO BIDWMEAL Qty: 0 0RF Discharge Instructions Instructions: Heart Failure (DC), Community Acquired Pneumonia (DC), Chronic Respiratory Failure (DC) Stand Alone Forms: Nursing Discharge Form Referrals: [facility] [Outside] Activity:: Activity as Tolerated Equipment/Supplies:: No Equipment Needed Diet:: Carb Counting Discharge Orders Discharge Orders: Discharge Order (Routine); Ordered 02/20/22 Ordered By: Mali Conner Discharge Data Discharge Date/Time-TO BE ENTERED AT DEPARTURE: 02/20/22 13:03 DS: Summary Time Spent with Patient providing and/or coordinating discharge services: Greater than 30 minutes Status at Discharge Functional status at discharge: uses cane/walker Overall status at discharge: patient is progressing back to baseline Mental Status: mental status grossly normal Speech and Movement: speech and movement normal Mood: anxious mood Affect: normal affect Exam Const General: cooperative, no acute distress, anxious and frail appearing Nutritional Appearance: obese Orientation: oriented x3 HENMT Head: normal to inspection Eyes General: appearance normal, both eyes and all related structures Chest Chest: tenderness and rash Resp Effort & Inspection: able to speak in complete sentences Auscultation: crackles on the left 1/[address] and bilaterally Cardio Jugular venous pressure: other Rate: regular rate Rhythm: other (difficult to auscultate) GI Inspection: large pannus and obesity Palpation: soft General: other (kebede out) Skin General skin exam: atrophy and dry skin Lesions: lesion noted (multiple red areas throughout body) Nails: clubbing, dystrophic and yellow and thickened Extrem General: other (compression stockings in place) Psych Mental Status: mental status grossly normal Speech and Movement: speech and movement normal Mood: anxious mood Affect: normal affect DS: Data Vitals/I&O Vitals and I&O: Vital Signs Temperature 36.8 C 02/20/22 08:00 Temperature Source Tympanic 02/20/22 08:00 Pulse 81 02/20/22 08:00 Pulse Rhythm Irregular 02/20/22 10:33 Respiratory Rate 19 02/20/22 08:00 Respiratory Effort 02/20/22 10:33 Respiratory Depth Normal 02/20/22 10:33 Respiratory Pattern Normal 02/20/22 10:33 Blood Pressure 118/69 02/20/22 08:00 Blood Pressure Position Sitting 02/16/22 20:15 Pulse Oximetry 95 02/20/22 08:00 Oxygen Delivery Method High Flow System 02/20/22 08:00 Oxygen Flow Rate 40 02/20/22 08:03 Fraction of Inspired Oxygen (FIO2) 45 02/20/22 08:03 Pain Level 0 02/20/22 03:36 Intake & Output 02/19/22 02/20/22 02/20/22 23:59 11:59 23:59 Intake Total 826 / 1476 850 / 850 Output Total 2800 / 3675 1200 / 1200 Balance -1974 / -2199 -350 / -350 Intake: IV 576 / 976 350 / 350 Oral 250 / 500 500 / 500 Output: Urine 2800 / 3675 1200 / 1200 Other: Urine Color Yellow Yellow Urine Appearance Clear Clear Urine Odor Normal None Comment patient was incont and voided in commode Voiding Methods Bedside Commode Bedside Commode Data Completed and Pending Labs on day of discharge: Labs from last 24 hours 02/20/22 02/20/22 02/18/22 07:00 07:00 06:18 WBC 16.92 H RBC 4.02 Hgb 11.6 Hct 38.7 MCV 96 H MCH 28.9 MCHC 30.0 L RDW 14.7 H Plt Count 327 MPV 9.0 Immature Gran % 0.7 Neutrophils % 80.9 Lymphocytes % 8.1 Monocytes % 6.9 Eosinophils % 3.0 Basophils % 0.4 Nucleated RBC % 0.0 Absolute Neutrophils 13.69 H Absolute Lymphocytes 1.37 Absolute Monocytes 1.17 H Absolute Eosinophils 0.51 Absolute Basophils 0.07 Sodium 138 Potassium 3.2 L Chloride 92 L Carbon Dioxide 43.6 H Anion Gap 2.4 L BUN 15 Creatinine 0.7 Est GFR (CKD-EPI 2020) 91.26 Glucose 138 H Calcium 9.4 Urine Legionella Ag Negative Preliminary micro results at discharge 02/16/22 21:45 Blood Culture - Preliminary Blood NO GROWTH 72 HOURS 02/16/22 20:54 Blood Culture - Preliminary Blood NO GROWTH 72 HOURS PFSH All Active Problems (Updated 02/21/22 @ 00:05 by MINGO SHANNON) Type 2 diabetes mellitus (Chronic) Atrial fibrillation (Chronic) CHF (congestive heart failure) (Chronic) HCAP (healthcare-associated pneumonia) (Acute) Pneumonia (Acute) Abnormal MRI (Acute) 01/19/20 Personal history of nicotine dependence (Acute) Acute on chronic diastolic CHF (congestive heart failure), NYHA class 1 (Acute) Acute on chronic respiratory failure with hypoxia and hypercapnia (Acute) Onychomycosis (Acute) Anterior epistaxis (Acute) Pulmonary nodule (Acute) Morbid obesity (Acute) Vitamin D deficiency (Acute) MRSA (methicillin resistant staph aureus) culture positive (Acute) Hypoxia (Acute) Hypothyroidism (Chronic) Bilateral cellulitis of lower leg (Acute) Localized swelling of both lower legs (Acute) On amiodarone therapy (Acute) Palliative care patient (Acute) Cellulitis of left lower leg (Acute) Plaque psoriasis (Acute) GERD (gastroesophageal reflux disease) (Chronic) Hypercholesterolemia (Acute) Obesity (Chronic) CHF (congestive heart failure) (Chronic) Family history unobtainable due to patient's condition (Acute) Medical History Acute and chronic respiratory failure with hypercapnia Acute exacerbation of chronic obstructive pulmonary disease Acute on chronic respiratory failure with hypoxia and hypercapnia Acute respiratory distress Acute respiratory distress Altered mental status Arthritis Atrial fibrillation Cellulitis bilateral lower extremities Cellulitis CHF (congestive heart failure) Chronic atrial fibrillation, unspecified Chronic respiratory failure with hypoxia COPD (chronic obstructive pulmonary disease) Diabetes mellitus HCAP (healthcare-associated pneumonia) HCAP (healthcare-associated pneumonia) HCAP (healthcare-associated pneumonia) Hypercarbia Methicillin susceptible Staphylococcus aureus infection as the cause of diseases classified elsewhere Mood disorder Morbid (severe) obesity with alveolar hypoventilation Muscle weakness (generalized) Obesity Pneumonia Sepsis Sepsis Streptococcal bacteremia Toxic metabolic encephalopathy Type 2 diabetes mellitus Type 2 diabetes mellitus with hyperglycemia Surgical History H/O hand surgery right index finger removal of tendon sheath ganglion H/O: hysterectomy History of carpal tunnel surgery of right wrist History of excision of lesion abdominal cyst removed S/P appendectomy Family History Father Heart disease 2 [place], at 62 Mother Heart disease Social History Smoking/Tobacco Use Status: Former Tobacco Use Smoking risk assessment performed?: Yes Alcohol Intake: never Drug use: Never Substance use type: does not use Do you feel safe at home: Yes Do you feel safe in your relationship?: Yes
--- NOTE | 2022-02-20 14:18 | PDOC.CMDIS ---
- If Service Date Differs Date of service: 02/20/22 Time of Service: 14:18 LACE Index Scoring Tool - Questions: Length of Stay (in days): 4 - 6 Acuity (Admit via E.D.?): Yes Comorbidities: Diabetes w/o Complication, Congestive Heart Failure, Chronic Pulmonary Disease E.D. Visits: 6 - Answers: Total Score: 16 Risk of Readmission: High Risk Care Management Discharge Reason for Hospitalization: [facility] Pneumonia, Acute CHF Discharge Plan: Marlen returned to the [facility] today, where she resides, via [facility] w/[facility] [place], coordinated by CM. She will follow up with facility providers and her discharge plan of care. She is happy to be going home. Patient/Family Education Needs: Review discharge instructions and limitations, discussion of self care needs including ask me three. Services Needed at Discharge: Group Home Facility (The [facility]), Transportation ([facility] w/[facility] [place])
[2022-02-21 13:57] LABS: Streptococcus Pneumoniae Ag, U Negative (Negative)
== END 2022-02-20 13:03 | disposition skilled nursing facility (03) | DRG 193 ==
LOC: ER 23:42 → MS 02-17 01:03
PROVIDERS: Internal Medicine; Nurse Practitioner Acute Care; Nurse Practitioner Family; Admitting Provider Family Medicine; Emergency Provider Student in an Organized Health Care Education/Training Program; PCP Family Medicine; Visit Provider Family Medicine
DX: J18.9 Pneumonia, unspecified organism (principal); I50.33 Acute on chronic diastolic (congestive) heart failure; J96.21 Acute and chronic respiratory failure with hypoxia; J96.22 Acute and chronic respiratory failure with hypercapnia; I48.19 Other persistent atrial fibrillation; Z68.43 Body mass index [BMI] 50.0-59.9, adult; Z66 Do not resuscitate; E66.01 Morbid (severe) obesity due to excess calories; E55.9 Vitamin D deficiency, unspecified; E03.9 Hypothyroidism, unspecified; K21.9 Gastro-esophageal reflux disease without esophagitis; E78.00 Pure hypercholesterolemia, unspecified; G47.33 Obstructive sleep apnea (adult) (pediatric); L40.0 Psoriasis vulgaris; Y95 Nosocomial condition; B35.1 Tinea unguium; E87.6 Hypokalemia; I11.0 Hypertensive heart disease with heart failure; Z99.81 Dependence on supplemental oxygen; Z79.4 Long term (current) use of insulin; Z87.891 Personal history of nicotine dependence; Z79.01 Long term (current) use of anticoagulants; Z79.84 Long term (current) use of oral hypoglycemic drugs; Z22.322 Carrier or suspected carrier of Methicillin resistant Staphylococcus aureus
CPT/HCPCS: 36415; 80048; 80053; 82805; 84145; 85027; 87040; 87081; 87449; 87637; 93005; 94640; 96365; 96367; 96375; 99285; 71045; 80202; 83605; 83735; 83880; 84484; 85025; 85610; 85730; 86140; 87899; 93010; 94660; 94760; 99223; 99233; 99239; J0696; J1940; J3480; J3490; J7613

== ENCOUNTER 2022-02-21 18:22 | Outpatient (REF) | payer MEDICARE, MEDICAID, SELFPAY ==
[2022-02-21 18:56] LABS: Abs Immature Grans 0.11 10^3/uL (0.0-0.06); Absolute Basophil Count 0.07 10^3/uL (0.0-0.2); Absolute Lymphocyte Count 1.57 10^3/uL (1.2-3.4); Basophils % 0.5; Eosinophils % 2.1; HCT 39.3 % (36.0-46.0); HGB 11.6 g/dL (11.2-15.7); Immature Grans % 0.8; Lymphocytes % 11.2; MCH 28.6 pg (27.0-33.0); MCHC 29.5 % (32.0-36.0); MCV 97 fL (80-95); MPV 9.5 fL (8.0-11.0); Monocytes % 7.8; Neutrophils % 77.6; Platelet Count 367 10^3/uL (130-400); RBC 4.05 10^6/uL (3.93-5.22); RDW 15.2 % (11.7-14.6); RDW-SD 54.9 fL; WBC 14.04 10^3/uL (4.4-10.8)
[2022-02-21 18:57] LABS: Absolute Eosinophil Count 0.29 10^3/uL (0.0-0.7)
[2022-02-21 19:13] LABS: ALT 21 U/L (14-59); AST 20 U/L (15-37); Alkaline Phosphatase 86 U/L (46-116); Anion Gap 2.1 mmol/L (3-11); BUN 19 mg/dL (7-18); Bilirubin, Total 0.2 mg/dL (0.2-1.0); C-Reactive Protein 17.38 mg/dL (0.0-0.3); CO2 44.9 mmol/L (21.0-32.0); CREATININE 0.9 mg/dL (0.55-1.02); Calcium 9.7 mg/dL (8.5-10.1); Chloride 92 mmol/L (98-107); Glucose 146 mg/dL (74-106); Potassium 3.9 mmol/L (3.5-5.1); Sodium 139 mmol/L (136-145); Total Protein 7.2 g/dL (6.4-8.2)
[2022-02-21 19:42] LABS: Procalcitonin 0.1 ng/mL
[2022-02-21 20:07] LABS: Vitamin D 25 Total 33.6 ng/mL (30-100)
== END 2022-02-21 18:23 | disposition home or self-care (01) ==
LOC: LBN 18:22
PROVIDERS: PCP Family Medicine; Visit Provider Nurse Practitioner Gerontology
DX: L03.90 Cellulitis, unspecified (principal); J18.9 Pneumonia, unspecified organism; J44.9 Chronic obstructive pulmonary disease, unspecified
CPT/HCPCS: 80053; 80151; 82306; 84145; 85025; 86140

== ENCOUNTER 2022-03-01 18:17 | Outpatient (REF) | payer MEDICARE, MEDICAID, SELFPAY ==
[2022-03-01 19:01] LABS: Absolute Eosinophil Count 0.44 10^3/uL (0.0-0.7); Absolute Lymphocyte Count 2.31 10^3/uL (1.2-3.4); Absolute Neutrophil Count 9.82 10^3/uL (1.2-6.7); Basophils % 0.7; Eosinophils % 3.2; HCT 38.2 % (36.0-46.0); Immature Grans % 1.5; MCH 27.8 pg (27.0-33.0); MCHC 28.8 % (32.0-36.0); MCV 97 fL (80-95); MPV 9.1 fL (8.0-11.0); Monocytes % 5.4; Neutrophils % 72.2; Platelet Count 423 10^3/uL (130-400); RBC 3.96 10^6/uL (3.93-5.22); RDW 15.3 % (11.7-14.6); RDW-SD 54.5 fL
[2022-03-01 19:02] LABS: Absolute Monocyte Count 0.73 10^3/uL (0.1-0.8)
[2022-03-01 19:21] LABS: ALT 17 U/L (14-59); AST 21 U/L (15-37); Alkaline Phosphatase 73 U/L (46-116); Anion Gap 2.9 mmol/L (3-11); BUN 14 mg/dL (7-18); Bilirubin, Total 0.2 mg/dL (0.2-1.0); CO2 40.1 mmol/L (21.0-32.0); CREATININE 1.2 mg/dL (0.55-1.02); Calcium 9.3 mg/dL (8.5-10.1); Chloride 94 mmol/L (98-107); Glucose 125 mg/dL (74-106); Potassium 4.1 mmol/L (3.5-5.1); Sodium 137 mmol/L (136-145); Total Protein 7.1 g/dL (6.4-8.2)
== END 2022-03-01 18:18 | disposition home or self-care (01) ==
LOC: LBN 18:17
PROVIDERS: PCP Family Medicine; Visit Provider Nurse Practitioner Gerontology
DX: E03.9 Hypothyroidism, unspecified (principal); E87.6 Hypokalemia; R68.89 Other general symptoms and signs; J44.9 Chronic obstructive pulmonary disease, unspecified; I50.33 Acute on chronic diastolic (congestive) heart failure; E11.9 Type 2 diabetes mellitus without complications
CPT/HCPCS: 80053; 85025

== ENCOUNTER → 2022-03-09 01:43 | Outpatient (CLI) | payer MEDICARE, MEDICAID, SELFPAY ==
--- NOTE | 2022-03-09 | DI.RAD_ITS ---
Exam(s) XR CHEST 2V PA LATERAL EXAM: XR CHEST 2V PA LATERAL CLINICAL HISTORY: F/U PNEUMONIA. TECHNIQUE: 2D digital imaging was performed. COMPARISON: CR,XR XR PORTABLE CHEST AP from 02/16/2022 FINDINGS: 2 views: Cardiomegaly again noted. Mediastinum not widened. Left lower lobe infiltrate noted. Slight blunting of left costophrenic probably indicate small amoun t of left pleural fluid. Pulmonary venous hypertension pattern bordering on interstitial pulmonary edema noted. Exhibits mini mal if any significant change from 02/16/2022. IMPRESSION: Cardiomegaly. Pulmonary venous hypertension pattern again noted. Left lower lobe infiltrate and small left pleural effusion. DATA REPOSITORY: RADIATION DOSE DELIVERED:
== END ==
PROVIDERS: PCP Family Medicine; Visit Provider Nurse Practitioner Gerontology
DX: I51.7 Cardiomegaly (principal); R91.8 Other nonspecific abnormal finding of lung field; J90 Pleural effusion, not elsewhere classified
CPT/HCPCS: 71046

== ENCOUNTER 2022-03-14 18:58 | Outpatient (REF) | payer MEDICARE, MEDICAID, SELFPAY ==
[2022-03-14 19:31] LABS: Abs Immature Grans 0.06 10^3/uL (0.0-0.06); Absolute Eosinophil Count 0.42 10^3/uL (0.0-0.7); Absolute Lymphocyte Count 1.59 10^3/uL (1.2-3.4); Absolute Monocyte Count 0.94 10^3/uL (0.1-0.8); Absolute Neutrophil Count 10.56 10^3/uL (1.2-6.7); Basophils % 0.4; Eosinophils % 3.1; HCT 38.3 % (36.0-46.0); HGB 11.2 g/dL (11.2-15.7); Immature Grans % 0.4; Lymphocytes % 11.7; MCH 27.6 pg (27.0-33.0); MCHC 29.2 % (32.0-36.0); MCV 94 fL (80-95); MPV 9.2 fL (8.0-11.0); Monocytes % 6.9; Neutrophils % 77.5; Platelet Count 310 10^3/uL (130-400); RBC 4.06 10^6/uL (3.93-5.22); RDW 15.8 % (11.7-14.6); RDW-SD 54.8 fL; WBC 13.63 10^3/uL (4.4-10.8)
[2022-03-14 19:33] LABS: Absolute Basophil Count 0.05 10^3/uL (0.0-0.2)
[2022-03-14 20:51] LABS: ALT 14 U/L (14-59); AST 16 U/L (15-37); Albumin 3.1 g/dL (3.4-5.0); Alkaline Phosphatase 80 U/L (46-116); Anion Gap 2.6 mmol/L (3-11); BUN 14 mg/dL (7-18); Bilirubin, Total 0.2 mg/dL (0.2-1.0); CO2 40.4 mmol/L (21.0-32.0); CREATININE 0.9 mg/dL (0.55-1.02); Calcium 9.1 mg/dL (8.5-10.1); Chloride 97 mmol/L (98-107); Glucose 149 mg/dL (74-106); NT-proBNP 210 pg/mL (<300); Potassium 4.2 mmol/L (3.5-5.1); Sodium 140 mmol/L (136-145); Total Protein 7.2 g/dL (6.4-8.2)
== END 2022-03-14 18:59 | disposition home or self-care (01) ==
LOC: LBN 18:58
PROVIDERS: PCP Family Medicine; Visit Provider Nurse Practitioner Gerontology
DX: R68.89 Other general symptoms and signs (principal)
CPT/HCPCS: 80053; 83880; 85025

== ENCOUNTER 2022-03-15 15:54 | Inpatient (IN) | payer MEDICARE, MEDICAID, SELFPAY ==
[2022-03-15] VITALS (59 sets, daily range): BP systolic 105–144; BP diastolic 38–64; PULSE 73–94; RESP 4–29; TEMP 37.6–38.1; O2SAT 84–94
--- NOTE | 2022-03-15 15:45 | RT.EKG_ITS ---
APPROVED REPORT Exam: Resting ECG Reason for Exam: RES. DISTRESS Patient Location: E HR:88 bpm ECG Measurements Heart Rate 88 AXIS WA 202 P 84 QRSd 120 QRS -78 QT 405 T 36 QTc 490 Conclusion Sinus rhythm. Left anterior fascicular block...a Probable anterolateral infarct, old...Q>35mS, abnrm ST-T, V2-V6,I,aVL
--- NOTE | 2022-03-15 16:00 | DI.RAD_ITS ---
Exam(s) XR PORTABLE CHEST AP EXAM: XR PORTABLE CHEST AP CLINICAL HISTORY: SOB, Fever, hx CHF. TECHNIQUE: 2D digital imaging was performed. COMPARISON: CR XR CHEST 2V PA LATERAL from 03/09/2022 FINDINGS: Single AP portable view. Cardiomegaly again noted. Mediastinum unchanged. There is pulmonary venous hypertension pattern. There is also prominent area of confluent infiltrate in the mid right lung zone, either superior segment right lower lobe or right upper lobe contiguous with the minor fissure. Difficult to differentiate without a lateral view. Also infiltrate in both lung bases. No large Mild blunting of the costophrenic angles probably indicate small bilateral pleural effusions. IMPRESSION: Mild cardiomegaly. Small bilateral pleural effusions. Bilateral infiltrates, more prominent on the right side. Clinically indicated follow-up CT scan can be performed for added specificity. DATA REPOSITORY: RADIATION DOSE DELIVERED:
--- NOTE | 2022-03-15 16:11 | W.ED.GENAD ---
Discharge Plan Disposition Patient Disposition: Admit to [facility] Condition: Serious Discharge Details Chief Complaint: RespSymp Clinical Impression: Pneumonia Primary Care Provider: Evi Cloud ED Provider: Bruno Barth Home Meds and New Rx's Prescriptions: No Action pantoprazole 20 mg tablet,delayed release (DR/EC) 20 mg PO BID Stiolto Respimat 2.5-2.5 mcg/actuation mist 2 puff inhalation DAILY Qty: 4 12RF Deep Sea Nasal 0.65 % aerosol,spray 4 spray NS QID PRN PRN Rx Instructions: 1 spray each nostril QID budesonide-formoterol [Symbicort] 80-4.5 mcg/actuation HFA aerosol inhaler 2 puff inhalation Q12H calcium carbonate [Tums] 200 mg calcium (500 mg) tablet,chewable 400 mg PO Q4H PRN (Reason: dyspepsia) (DME) BiPap See Rx Instructions .Route .MEDSUPPLY Qty: 1 0RF Rx Instructions: See internal note aluminum hydroxide Ointment 1 applic topical DAILY citalopram 10 mg tablet 10 mg PO DAILY diltiazem HCl [DILT-XR] 240 mg capsule,ext.rel 24h degradable 240 mg PO QAM acetaminophen [Tylenol] 325 mg Tablet 650 mg PO Q4H PRN epinephrine 0.3 mg/0.3 mL Auto-Injector 0.3 mg IM PRN PRN amiodarone 200 mg tablet 200 mg PO DAILY albuterol sulfate 90 mcg/actuation HFA aerosol inhaler 2 inh INHALATION .Q4H,PRN PRN Rx Instructions: TID PRN Per MAR tolterodine 4 mg capsule,extended release 24hr 4 mg PO DAILY AM insulin glargine [Lantus Solostar U-100 Insulin] 100 unit/mL (3 mL) Insulin Pen 20 unit SUBCUT HS Qty: 0 0RF levothyroxine 100 mcg Tablet 100 mcg PO HS Trulicity 1.5 mg/0.5 mL pen injector 1.5 mg SUBCUT QWEEK polyethylene glycol 3350 [Miralax] 17 gram/dose powder 17 g PO DAILY Rx Instructions: PRN vitamin B complex Tablet 1 tab PO DAILY metformin 1,000 mg tablet 1,000 mg PO BID potassium chloride 20 mEq tablet,ER particles/crystals 40 meq PO BIDWMEAL doxycycline hyclate 100 mg Capsule 100 mg PO BID buspirone 15 mg tablet 15 mg PO BID tramadol 100 mg tablet 100 mg PO QHS PRN Rx Instructions: TID MAX 400mg daily insulin aspart U-100 [Novolog Flexpen U-100 Insulin] 100 unit/mL (3 mL) Insulin Pen 1 sliding scale dose SUBCUT USEASDIRECTD cholecalciferol (vitamin D3) [Vitamin D3] 50 mcg (2,000 unit) Capsule 4,000 unit PO 1XD Eliquis 5 mg Tablet 5 mg PO BID albuterol sulfate 2.5 mg /3 mL (0.083 %) Solution For Nebulization 2.5 mg UPD Q2H PRN PRNQty: 75 0RF ipratropium-albuterol 0.5 mg-3 mg(2.5 mg base)/3 mL Solution For Nebulization 3 ml UPD Q6H PRN PRNQty: 90 0RF torsemide 20 mg tablet 60 mg PO BID DIURETIC Qty: 0 0RF Rx Instructions: 60mg BID mupirocin 2 % ointment 1 applic topical BID Qty: 22 0RF Medical Decision Making 71-year-old female from local intermediate. She has had 2 days of cough, congestion, fever. Noted to have hypoxia and increased work of breathing today. She was given a DuoNeb and placed on oxygen by EMS with improvement by the time of arrival. She is however continued to breathe greater than 20 times a minute and is noted to have a temperature of 38.1. 95 to 6% on 4 L oxygen. Patient reports her home for she has some noncompliance with home trilogy ventilator. After initial evaluation, patient placed on BiPAP, 15/5 with 35%. Subsequently ABG obtained which reveals pH 7.3, PCO2 75 PO2 62. Patient is known to have some chronic hypercapnia. Reversed diagnosis includes COPD exacerbation, pneumonitis/pneumonia, fluid overload. Patient was given steroids, DuoNeb updraft. She improved with noninvasive positive pressure ventilation. Patient has had leukocytosis; today white blood cell is 19. Sodium 136, potassium 4.1, chloride 97, bicarb 36, BUN 15, creatinine 0.9. Troponin negative, BNP 342. Influenza/SARS COVID 2/RSV swabs negative. Chest x-ray: Bibasilar consolidation present. See the formal report. Mild cardiomegaly bilateral pleural effusions present. Given the fever, negative viral panel, as well as consider healthcare acquired pneumonia.. I do feel she likely has a component of fluid overload as well. I have ordered oral torsemide which the patient refused, subsequently she was given IV Lasix. Antibiotics initiated. Case discussed with Dr. Sandoval and patient admitted. HPI General Mode of arrival: EMS. Date/Time Provider Initiated Documentation: 03/15/22 15:59. Limitations to Documentation: no limitations. Information obtained by: patient, EMS and old records reviewed. History of Present Illness 71 year old F presents to the emergency department with the chief complaint of Short of breath, hypoxic at intermediate, described as moderate, Quality is described as constant, and is localized to the chest. Patient started experiencing this hour(s) and it has been constant. No relieving factors improve symptom(s), Patient notes cough, fever/chills and shortness of breath; denies chest pain and syncope. Patient did receive the following treatments prior to arrival, other (DuoNeb in ambulance) Related Data Home Medications Medication Instructions Recorded Confirmed acetaminophen 325 mg tablet 650 mg PO Q4H PRN 01/14/20 03/15/22 (Tylenol) diltiazem HCl 240 mg 240 mg PO QAM 01/14/20 03/15/22 capsule,extended release 24 hr, controlled (DILT-XR) epinephrine 0.3 mg/0.3 mL 0.3 mg IM PRN PRN 01/14/20 03/15/22 injection, auto-injector amiodarone 200 mg tablet 200 mg PO DAILY 12/02/20 03/15/22 pantoprazole 20 mg tablet,delayed 20 mg PO BID 12/02/20 03/15/22 release tolterodine 4 mg capsule,extended 4 mg PO DAILY AM 12/12/20 03/15/22 release 24 hr insulin glargine 100 unit/mL (3 20 unit (0.2 mL) subcut HS #0 mL 12/16/20 03/15/22 mL) subcutaneous pen (Lantus Solostar U-100 Insulin) levothyroxine 100 mcg tablet 100 mcg PO HS 01/02/21 03/15/22 dulaglutide 1.5 mg/0.5 mL 1.5 mg subcut QWEEK 01/06/21 03/15/22 subcutaneous pen injector (Trulicity) tiotropium 2.5 mcg-olodaterol 2.5 2 puff inhalation DAILY #4 grams 02/21/21 03/15/22 mcg/actuation mist for inhalation (Stiolto Respimat) vitamin B complex 1 tab PO DAILY 04/16/21 03/15/22 BiPap #1 ea 04/18/21 12/15/21 albuterol sulfate 90 mcg/actuation 2 inh inhalation .Q4H,PRN PRN 12/09/21 03/15/22 aerosol inhaler budesonide-formoterol HFA 80 2 puff inhalation Q12H 12/09/21 03/15/22 mcg-4.5 mcg/actuation aerosol inhaler (Symbicort) calcium carbonate 200 mg calcium 400 mg PO Q4H PRN dyspepsia 12/09/21 03/15/22 (500 mg) chewable tablet (Tums) polyethylene glycol 3350 17 17 g PO DAILY 12/09/21 03/15/22 gram/dose oral powder (Miralax) sodium chloride 0.65 % nasal spray 4 spray NS QID PRN PRN 12/09/21 03/15/22 aerosol (Deep Sea Nasal) tramadol 100 mg tablet 100 mg PO QHS PRN 12/09/21 03/15/22 aluminum hydroxide 1 applic topical DAILY 12/15/21 03/15/22 citalopram 10 mg tablet 10 mg PO DAILY 12/15/21 03/15/22 apixaban 5 mg tablet (Eliquis) 5 mg PO BID 02/17/22 03/15/22 cholecalciferol (vitamin D3) 50 4,000 unit PO 1XD 02/17/22 03/15/22 mcg (2,000 unit) capsule (Vitamin D3) insulin aspart U-100 100 unit/mL 1 sliding scale dose subcut 02/17/22 03/15/22 (3 mL) subcutaneous pen (Novolog USEASDIRECTD Flexpen U-100 Insulin aspart) albuterol sulfate 2.5 mg/3 mL 2.5 mg (3 mL) UPD Q2H PRN PRN #75 02/20/22 03/15/22 (0.083 %) solution for nebulization mL ipratropium 0.5 mg-albuterol 3 mg 3 ml UPD Q6H PRN PRN #90 mL 02/20/22 03/15/22 (2.5 mg base)/3 mL nebulization soln mupirocin 2 % topical ointment 1 applic topical BID #22 grams 02/20/22 03/15/22 torsemide 20 mg tablet 60 mg PO BID DIURETIC #0 tabs 02/20/22 03/15/22 buspirone 15 mg tablet 15 mg PO BID 03/15/22 03/15/22 doxycycline hyclate 100 mg capsule 100 mg PO BID 03/15/22 03/15/22 metformin 1,000 mg tablet 1,000 mg PO BID 03/15/22 03/15/22 potassium chloride 20 mEq 40 meq PO BIDWMEAL 03/15/22 03/15/22 tablet,extended release(part/cryst) Previous Rx's Medication Instructions Recorded insulin glargine 100 unit/mL (3 20 unit (0.2 mL) subcut HS #0 mL 12/16/20 mL) subcutaneous pen (Lantus Solostar U-100 Insulin) tiotropium 2.5 mcg-olodaterol 2.5 2 puff inhalation DAILY #4 grams 02/21/21 mcg/actuation mist for inhalation (Stiolto Respimat) BiPap #1 ea 04/18/21 albuterol sulfate 2.5 mg/3 mL 2.5 mg (3 mL) UPD Q2H PRN PRN #75 02/20/22 (0.083 %) solution for nebulization mL ipratropium 0.5 mg-albuterol 3 mg 3 ml UPD Q6H PRN PRN #90 mL 02/20/22 (2.5 mg base)/3 mL nebulization soln mupirocin 2 % topical ointment 1 applic topical BID #22 grams 02/20/22 torsemide 20 mg tablet 60 mg PO BID DIURETIC #0 tabs 02/20/22 Allergies Allergy/AdvReac Type Severity Reaction Status Date / Time bee venom protein (honey bee) Allergy Unknown Verified 03/15/22 15:58 Penicillins Allergy Unknown Verified 03/15/22 15:58 strawberry Allergy Unknown Verified 03/15/22 15:58 General Stated Complaint: RespSymp KENDRICK: 3 Review of Systems Narrative: Patient reports 2 days of cough, congestion, fever. Short of breath today, hypoxic at the intermediate and responded to oxygen. Has chronic lower extremity edema that is unchanged, umbilical hernia unchanged. 8 systems reviewed and otherwise negative PFSH All Active Problems (Updated 03/15/22 @ 18:59 by Bruno Barth MD) Pneumonia (Acute) Type 2 diabetes mellitus (Chronic) Atrial fibrillation (Chronic) CHF (congestive heart failure) (Chronic) HCAP (healthcare-associated pneumonia) (Acute) Pneumonia (Acute) Abnormal MRI (Acute) 01/19/20 Personal history of nicotine dependence (Acute) Acute on chronic diastolic CHF (congestive heart failure), NYHA class 1 (Acute) Acute on chronic respiratory failure with hypoxia and hypercapnia (Acute) Onychomycosis (Acute) Anterior epistaxis (Acute) Pulmonary nodule (Acute) Morbid obesity (Acute) Vitamin D deficiency (Acute) MRSA (methicillin resistant staph aureus) culture positive (Acute) Hypoxia (Acute) Hypothyroidism (Chronic) Bilateral cellulitis of lower leg (Acute) Localized swelling of both lower legs (Acute) On amiodarone therapy (Acute) Palliative care patient (Acute) Cellulitis of left lower leg (Acute) Plaque psoriasis (Acute) GERD (gastroesophageal reflux disease) (Chronic) Hypercholesterolemia (Acute) Obesity (Chronic) CHF (congestive heart failure) (Chronic) Family history unobtainable due to patient's condition (Acute) Medical History Acute and chronic respiratory failure with hypercapnia Acute exacerbation of chronic obstructive pulmonary disease Acute on chronic respiratory failure with hypoxia and hypercapnia Acute respiratory distress Acute respiratory distress Altered mental status Arthritis Cellulitis bilateral lower extremities Cellulitis Chronic atrial fibrillation, unspecified Chronic respiratory failure with hypoxia COPD (chronic obstructive pulmonary disease) Diabetes mellitus HCAP (healthcare-associated pneumonia) HCAP (healthcare-associated pneumonia) Hypercarbia Methicillin susceptible Staphylococcus aureus infection as the cause of diseases classified elsewhere Mood disorder Morbid (severe) obesity with alveolar hypoventilation Muscle weakness (generalized) Obesity Pneumonia Sepsis Sepsis Streptococcal bacteremia Toxic metabolic encephalopathy Type 2 diabetes mellitus with hyperglycemia Surgical History H/O hand surgery right index finger removal of tendon sheath ganglion H/O: hysterectomy History of carpal tunnel surgery of right wrist History of excision of lesion abdominal cyst removed S/P appendectomy Family History Father Heart disease 2 [place], at 62 Mother Heart disease Social History Smoking/Tobacco Use Status: Former Tobacco Use Smoking risk assessment performed?: Yes Alcohol Intake: never Drug use: Never Substance use type: does not use Do you feel safe at home: Yes Do you feel safe in your relationship?: Yes Exam Narrative Exam Narrative: GEN: awake, alert, able to speak but is obviously short of breath. Pleasant, well groomed, interactive. HEAD: Normocephalic, atraumatic ENT: Mucous membranes moist, oropharynx unremarkable, External ear exam unremarkable EYES: PERRL, EOMI NECK: Full ROM, no MARLY, no menigismus CHEST/RESP: Nontender, increased respiratory rate, diminished throughout, right-sided rhonchi appreciated. CARDIOVASCULAR: Tachycardic, irregularly irregular, distant, no murmur, rub merly. 2+ Rad pulse bilateral ABDOMEN: Soft, nontender, no mass. +Bowel sounds EXT: Full ROM, bilateral pitting edema, left leg is in a [place] wrap Neuro: Grossly normal neurologic exam, conversant, interactive. Psych: Speech fluent, thoughts congruent, affect normal Course Vital Signs Vital signs: Vital Signs Temperature 38.1 C H 03/15/22 15:49 Pulse 94 H 03/15/22 15:49 Respiratory Rate 28 H 03/15/22 15:49 Pulse Oximetry 91 L 03/15/22 15:49 Temperature 38.1 C H 03/15/22 15:49 Temperature Source Oral 03/15/22 15:49 Pulse 94 H 03/15/22 15:49 Respiratory Rate 28 H 03/15/22 15:49 Respiratory Effort 03/15/22 15:56 Blood Pressure Position Sitting 03/15/22 15:49 Pulse Oximetry 91 L 03/15/22 15:49 Oxygen Delivery Method Nasal Cannula 03/15/22 15:49 Oxygen Flow Rate 2 03/15/22 15:49 Pain Level 9 03/15/22 15:49
[2022-03-15] MEDS: Albuterol/Ipratropium 3 ML UPD VIAL (16:21)
[2022-03-15] MEDS: methylPREDNISolone SUCC 125 MG VIAL IVP (16:52)
[2022-03-15 17:20] LABS: HCO3 44 mmol/L (22-26); pH 7.38 (7.35-7.45); pO2 62 mmHg (80-105); sO2 91 % (95-98); tCO2 41 mmol/L (23-27)
[2022-03-15 17:21] LABS: pCO2 75 mmHg (35-45)
[2022-03-15 17:22] LABS: Abs Immature Grans 0.09 10^3/uL (0.0-0.06); Absolute Eosinophil Count 0.26 10^3/uL (0.0-0.7); Absolute Monocyte Count 1.52 10^3/uL (0.1-0.8); Basophils % 0.4; Eosinophils % 1.3; HCT 38.5 % (36.0-46.0); HGB 11.2 g/dL (11.2-15.7); Immature Grans % 0.5; Lymphocytes % 9.9; MCH 27.2 pg (27.0-33.0); MCHC 29.1 % (32.0-36.0); MCV 93 fL (80-95); MPV 8.9 fL (8.0-11.0); Monocytes % 7.7; Neutrophils % 80.2; Platelet Count 283 10^3/uL (130-400); RBC 4.12 10^6/uL (3.93-5.22); RDW 15.9 % (11.7-14.6); RDW-SD 53.7 fL; WBC 19.68 10^3/uL (4.4-10.8)
[2022-03-15 17:22] LABS: BE > 15 mmol/L (-2-3); FIO2 35 %; Site Left Radial
[2022-03-15 17:24] LABS: Absolute Basophil Count 0.08 10^3/uL (0.0-0.2); Absolute Lymphocyte Count 1.95 10^3/uL (1.2-3.4); Absolute Neutrophil Count 15.78 10^3/uL (1.2-6.7)
[2022-03-15 17:35] LABS: Diff Comment Diff Reviewed; RBC Morphology Normal
[2022-03-15 17:37] LABS: Prothrombin Time 10.5 sec (9.3-11.0)
[2022-03-15 17:43] LABS: ALT 12 U/L (14-59); AST 15 U/L (15-37); Albumin 2.8 g/dL (3.4-5.0); Alkaline Phosphatase 86 U/L (46-116); Anion Gap 2.3 mmol/L (3-11); BUN 15 mg/dL (7-18); Bilirubin, Total 0.4 mg/dL (0.2-1.0); CO2 36.7 mmol/L (21.0-32.0); CREATININE 0.9 mg/dL (0.55-1.02); Calcium 8.7 mg/dL (8.5-10.1); Chloride 97 mmol/L (98-107); Glucose 116 mg/dL (74-106); NT-proBNP 342 pg/mL (<300); Potassium 4.1 mmol/L (3.5-5.1); Sodium 136 mmol/L (136-145); Total Protein 7.8 g/dL (6.4-8.2); Troponin I < 50 ng/L (<or=60)
[2022-03-15 18:26] LABS: COVID-19 PCR Negative (Negative); Influenza A PCR Negative (Negative); Influenza B PCR Negative (Negative); RSV PCR Negative (Negative)
[2022-03-15 18:34] LABS: Source Nasopharynx
--- NOTE | 2022-03-15 18:45 | DI.VRAD_ITS ---
PROCEDURE INFORMATION: Exam: XR Chest Exam date and time: 03/15/2022 5:49 PM Age: 71 years old Clinical indication: Shortness of breath and other: Fever, HX chf TECHNIQUE: Imaging protocol: Radiologic exam of the chest. Views: 1 view. COMPARISON: CR XR CHEST 2V PA LATERAL 03/09/2022 10:46 AM FINDINGS: Lungs: Nonspecific bibasilar consolidation is present, consistent with atelectasis, edema, or pneumonia, greater on the right. Pleural spaces: Bilateral pleural effusions. There is no evidence of pneumothorax. Heart/Mediastinum: Heart demonstrates mild diffuse enlargement. Bones/joints: The thoracic spine demonstrates mild degenerative changes at multiple levels. IMPRESSION: 1. Nonspecific bibasilar consolidation is present, consistent with atelectasis, edema, or pneumonia, greater on the right. 2. Mild cardiomegaly. 3. Bilateral pleural effusions. Dictated and Authenticated by: Tk Cruz MD. Ordering:BENJI Carr MD
[2022-03-15] MEDS: LORazepam 2 MG/ML VIAL 0.5 MG IVP (18:49)
[2022-03-15] MEDS: cefTRIAXone 2 GM/50 ML BAG IVPB (19:00)
[2022-03-15 19:56] LABS: Bilirubin Negative (Negative); Blood Negative (Negative); Clarity Sl Cloudy (Clear); Glucose Negative (Negative); Ketones Negative (Negative); Leukocyte Esterase Negative (Negative); Nitrite Negative (Negative); Urobilinogen 0.2 EU/dL (Up TO 0.2)
[2022-03-15] MEDS: ACETAMINOPHEN 1,000 MG/100 ML BTL 400 MG IVPB (19:57)
[2022-03-15 20:34] LABS: Troponin I < 50 ng/L (<or=60)
--- NOTE | 2022-03-15 20:58 | W.PM.HP.N ---
Date of service: 03/15/22 Time of Service: 20:59 Assessment and Plan Assessment and plan (1) Acute and chronic respiratory failure with hypercapnia: Start date: 03/15/22 Assessment and plan: This is 71-year-old lady who has recurrent admissions for respiratory failure and now has also probable pneumonia. She will be admitted for BiPAP treatment and encouraged to use her positive pressure device at the group home to avoid readmissions. She is a DNR/DNI. (2) Pneumonia: Start date: 03/15/22 Status: Acute Assessment and plan: Probable bilateral infiltrates at the bases with patient to be treated with ceftriaxone and vancomycin. Follow-up clinically and with imaging as indicated. Plans are to return to the group home on oral therapy once stabilized. (3) Hypoxia: Status: Acute Assessment and plan: This problem is acutely exacerbated and patient will be placed on O2 supplementation with BiPAP. Long-term she should use her Trilogy device at the group home to avoid decompensation. (4) CHF (congestive heart failure): Status: Chronic Assessment and plan: This is a chronic problem slightly exacerbated with patient to continue on torsemide dosing as an outpatient. She did receive extra Lasix in the ED. Trend labs and replete electrolytes as needed. (5) Type 2 diabetes mellitus: Status: Chronic Assessment and plan: Glucometers before meals and at bedtime with short acting insulin coverage while in the hospital and on IV Solu-Medrol for exacerbation of COPD. Steroids may exacerbate her hyperglycemia. Qualifiers: Diabetes mellitus complication status: without complication Diabetes mellitus fci insulin use: without fci use Qualified Code(s): E11.9 - Type 2 diabetes mellitus without complications (6) Acute exacerbation of chronic obstructive pulmonary disease: Assessment and plan: IV Solu-Medrol and aggressive nebulizer treatments with BiPAP support for hypoxemia and respiratory failure. (7) Atrial fibrillation: Status: Chronic Assessment and plan: Monitor on outpatient medical therapy with split dosing of diltiazem watching for hypotension while hospitalized. Patient is on Eliquis. Qualifiers: Atrial fibrillation type: persistent (not longstanding) Qualified Code(s): I48.19 - Other persistent atrial fibrillation History of Present Illness History of Present Illness Chief Complaint: Fever, cough with hypoxemia Narrative: This is a 71-year-old lady with a DNR/DNI and oncology positive pressure treatment at the group home locally who has a 2-day history of cough, congestion with fever and hypoxemia with dyspnea. She was given duo-nebs at the group home and by EMS and when evaluated in the ED appear to have bilateral pneumonia with fever and was admitted for hospital-acquired pneumonia and treatment of her COPD exacerbation. The patient is noncompliant with her positive pressure device at the group home and has recurrent admission for the same problem. Patient offers no further history being somnolent with BiPAP for CO2 retention. ED records were reviewed and discussed with ED Provider. Review of Systems Narrative: 13 point review of systems otherwise unrevealing or stable. [facility] All Active Problems Pneumonia (Acute) Type 2 diabetes mellitus (Chronic) Atrial fibrillation (Chronic) CHF (congestive heart failure) (Chronic) HCAP (healthcare-associated pneumonia) (Acute) Pneumonia (Acute) Abnormal MRI (Acute) 01/19/20 Personal history of nicotine dependence (Acute) Acute on chronic diastolic CHF (congestive heart failure), NYHA class 1 (Acute) Acute on chronic respiratory failure with hypoxia and hypercapnia (Acute) Onychomycosis (Acute) Anterior epistaxis (Acute) Pulmonary nodule (Acute) Morbid obesity (Acute) Vitamin D deficiency (Acute) MRSA (methicillin resistant staph aureus) culture positive (Acute) Hypoxia (Acute) Hypothyroidism (Chronic) Bilateral cellulitis of lower leg (Acute) Localized swelling of both lower legs (Acute) On amiodarone therapy (Acute) Palliative care patient (Acute) Cellulitis of left lower leg (Acute) Plaque psoriasis (Acute) GERD (gastroesophageal reflux disease) (Chronic) Hypercholesterolemia (Acute) Obesity (Chronic) CHF (congestive heart failure) (Chronic) Family history unobtainable due to patient's condition (Acute) Medical History Acute and chronic respiratory failure with hypercapnia Acute exacerbation of chronic obstructive pulmonary disease Acute on chronic respiratory failure with hypoxia and hypercapnia Acute respiratory distress Acute respiratory distress Altered mental status Arthritis Cellulitis bilateral lower extremities Cellulitis Chronic atrial fibrillation, unspecified Chronic respiratory failure with hypoxia COPD (chronic obstructive pulmonary disease) Diabetes mellitus HCAP (healthcare-associated pneumonia) HCAP (healthcare-associated pneumonia) Hypercarbia Methicillin susceptible Staphylococcus aureus infection as the cause of diseases classified elsewhere Mood disorder Morbid (severe) obesity with alveolar hypoventilation Muscle weakness (generalized) Obesity Pneumonia Sepsis Sepsis Streptococcal bacteremia Toxic metabolic encephalopathy Type 2 diabetes mellitus with hyperglycemia Surgical History H/O hand surgery right index finger removal of tendon sheath ganglion H/O: hysterectomy History of carpal tunnel surgery of right wrist History of excision of lesion abdominal cyst removed S/P appendectomy Family History Father Heart disease 2 [place], at 62 Mother Heart disease Social History Smoking/Tobacco Use Status: Former Tobacco Use Smoking risk assessment performed?: Yes Alcohol Intake: never Drug use: Never Substance use type: does not use Do you feel safe at home: Yes Do you feel safe in your relationship?: Yes Meds Allergies and Home Medications Allergies Allergy/AdvReac Type Severity Reaction Status Date / Time bee venom protein (honey bee) Allergy Unknown Verified 03/15/22 15:58 Penicillins Allergy Unknown Verified 03/15/22 15:58 strawberry Allergy Unknown Verified 03/15/22 15:58 Home Medications Medication Instructions Recorded Confirmed Type acetaminophen 325 mg tablet 650 mg PO Q4H PRN 01/14/20 03/15/22 History (Tylenol) diltiazem HCl 240 mg 240 mg PO QAM 01/14/20 03/15/22 History capsule,extended release 24 hr, controlled (DILT-XR) epinephrine 0.3 mg/0.3 mL 0.3 mg IM PRN PRN 01/14/20 03/15/22 History injection, auto-injector amiodarone 200 mg tablet 200 mg PO DAILY 12/02/20 03/15/22 History pantoprazole 20 mg tablet,delayed 20 mg PO BID 12/02/20 03/15/22 History release tolterodine 4 mg capsule,extended 4 mg PO DAILY AM 12/12/20 03/15/22 History release 24 hr insulin glargine 100 unit/mL (3 20 unit (0.2 mL) subcut HS #0 mL 12/16/20 03/15/22 Rx mL) subcutaneous pen (Lantus Solostar U-100 Insulin) levothyroxine 100 mcg tablet 100 mcg PO HS 01/02/21 03/15/22 History dulaglutide 1.5 mg/0.5 mL 1.5 mg subcut QWEEK 01/06/21 03/15/22 History subcutaneous pen injector (Trulicity) tiotropium 2.5 mcg-olodaterol 2.5 2 puff inhalation DAILY #4 grams 02/21/21 03/15/22 Rx mcg/actuation mist for inhalation (Stiolto Respimat) vitamin B complex 1 tab PO DAILY 04/16/21 03/15/22 History BiPap #1 ea 04/18/21 12/15/21 Rx albuterol sulfate 90 mcg/actuation 2 inh inhalation .Q4H,PRN PRN 12/09/21 03/15/22 History aerosol inhaler budesonide-formoterol HFA 80 2 puff inhalation Q12H 12/09/21 03/15/22 History mcg-4.5 mcg/actuation aerosol inhaler (Symbicort) calcium carbonate 200 mg calcium 400 mg PO Q4H PRN dyspepsia 12/09/21 03/15/22 History (500 mg) chewable tablet (Tums) polyethylene glycol 3350 17 17 g PO DAILY 12/09/21 03/15/22 History gram/dose oral powder (Miralax) sodium chloride 0.65 % nasal spray 4 spray NS QID PRN PRN 12/09/21 03/15/22 History aerosol (Deep Sea Nasal) tramadol 100 mg tablet 100 mg PO QHS PRN 12/09/21 03/15/22 History aluminum hydroxide 1 applic topical DAILY 12/15/21 03/15/22 History citalopram 10 mg tablet 10 mg PO DAILY 12/15/21 03/15/22 History apixaban 5 mg tablet (Eliquis) 5 mg PO BID 02/17/22 03/15/22 History cholecalciferol (vitamin D3) 50 4,000 unit PO 1XD 02/17/22 03/15/22 History mcg (2,000 unit) capsule (Vitamin D3) insulin aspart U-100 100 unit/mL 1 sliding scale dose subcut 02/17/22 03/15/22 History (3 mL) subcutaneous pen (Novolog USEASDIRECTD Flexpen U-100 Insulin aspart) albuterol sulfate 2.5 mg/3 mL 2.5 mg (3 mL) UPD Q2H PRN PRN #75 02/20/22 03/15/22 Rx (0.083 %) solution for nebulization mL ipratropium 0.5 mg-albuterol 3 mg 3 ml UPD Q6H PRN PRN #90 mL 02/20/22 03/15/22 Rx (2.5 mg base)/3 mL nebulization soln mupirocin 2 % topical ointment 1 applic topical BID #22 grams 02/20/22 03/15/22 Rx torsemide 20 mg tablet 60 mg PO BID DIURETIC #0 tabs 02/20/22 03/15/22 Rx buspirone 15 mg tablet 15 mg PO BID 03/15/22 03/15/22 History doxycycline hyclate 100 mg capsule 100 mg PO BID 03/15/22 03/15/22 History metformin 1,000 mg tablet 1,000 mg PO BID 03/15/22 03/15/22 History potassium chloride 20 mEq 40 meq PO BIDWMEAL 03/15/22 03/15/22 History tablet,extended release(part/cryst) Exam Narrative Exam Narrative: General: Patient is morbidly obese lying in bed with her head up at a 45 degree angle with BiPAP in place. She responds to verbal stimuli. She appears alert and oriented least to person and place. She is in moderate distress with her respiratory symptoms and dyspnea. HEENT: Normocephalic, eyes with pupils equal and reactive light symmetrically, extraocular movement tact and sclera anicteric. Oropharynx with dry mucosa. Neck: Supple without JVD. Back: Stooped posture without CVA tenderness. Lungs: Diffusely decreased aeration especially over the bases with bronchovesicular breath sounds diffusely, slightly increased expiratory phase with scant expiratory wheeze. No focalizing rales. Breast: Exam deferred. Heart: Regular rate with irregular rhythm and 4/6 holosystolic murmur. No rubs or gallops appreciated. Abdomen: Obese contour with pannus, soft and nontender to palpation with no focalizing tenderness or rebound. No palpable hepatosplenomegaly. Genitalia/rectal: Exam deferred. Extremities: Chronic 3+ nonpitting edema both lower extremities with slightly erythematous skin with soft compression stocking over both legs. No skin breakdown or drainage noted. Fair capillary refill. Skin: Skin changes of lower extremities with otherwise normal color, warm and dry. Neuro: Cranial nerves II through XII grossly intact. No focal motor deficits. No tremor. Psych: Flattened affect and mood not interpretable with patient somnolent. Abnormal thought processes manifested. Remote and memory grossly intact by report from the ED but patient not awake given history adequately for this evaluation. Short-term memory not testable. Results Imaging Imaging Studies: Exam: XR Chest Exam date and time: 03/15/2022 5:49 PM Age: 71 years old Clinical indication: Shortness of breath and other: Fever, HX chf TECHNIQUE: Imaging protocol: Radiologic exam of the chest. Views: 1 view. COMPARISON: CR XR CHEST 2V PA LATERAL 03/09/2022 10:46 AM FINDINGS: Lungs: Nonspecific bibasilar consolidation is present, consistent with atelectasis, edema, or pneumonia, greater on the right. Pleural spaces: Bilateral pleural effusions. There is no evidence of pneumothorax. Heart/Mediastinum: Heart demonstrates mild diffuse enlargement. Bones/joints: The thoracic spine demonstrates mild degenerative changes at multiple levels. IMPRESSION: 1. Nonspecific bibasilar consolidation is present, consistent with atelectasis, edema, or pneumonia, greater on the right. 2. Mild cardiomegaly. 3. Bilateral pleural effusions. Labs Result diagrams: 03/16/22 07:10 03/16/22 07:10 Labs: Laboratory Results - last 24 hr 03/15/22 03/15/22 03/15/22 12:07 12:07 16:30 WBC 19.68 H RBC 4.12 Hgb 11.2 Hct 38.5 MCV 93 MCH 27.2 MCHC 29.1 L RDW 15.9 H Plt Count 283 MPV 8.9 Immature Gran % 0.5 Neutrophils % 80.2 Lymphocytes % 9.9 Monocytes % 7.7 Eosinophils % 1.3 Basophils % 0.4 Nucleated RBC % 0.0 Absolute Neutrophils 15.78 H Absolute Lymphocytes 1.95 Absolute Monocytes 1.52 H Absolute Eosinophils 0.26 Absolute Basophils 0.08 RBC Morphology Normal PT INR ABG Sample Site ABG pH ABG pCO2 ABG pO2 ABG HCO3 ABG Total CO2 ABG O2 Saturation ABG Base Excess FiO2 Sodium 136 Potassium 4.1 Chloride 97 L Carbon Dioxide 36.7 H Anion Gap 2.3 L BUN 15 Creatinine 0.9 Est GFR (CKD-EPI 2020) 67.50 Glucose 116 H Calcium 8.7 Total Bilirubin 0.4 AST 15 ALT 12 L Alkaline Phosphatase 86 Troponin I < 50 NT-Pro-B Natriuret Pep 342 H Total Protein 7.8 Albumin 2.8 L Urine Color Urine Clarity Urine pH Ur Specific [place] Urine Protein Urine Ketones Urine Blood Urine Nitrite Urine Bilirubin Urine Urobilinogen Ur Leukocyte Esterase Urine Glucose COVID-19 Source Nasopharynx SARS-CoV-2 (PCR) Negative Influenza Type A (PCR) Negative Influenza Type B (PCR) Negative RSV (PCR) Negative 03/15/22 03/15/22 03/15/22 17:00 17:15 19:27 WBC RBC Hgb Hct MCV MCH MCHC RDW Plt Count MPV Immature Gran % Neutrophils % Lymphocytes % Monocytes % Eosinophils % Basophils % Nucleated RBC % Absolute Neutrophils Absolute Lymphocytes Absolute Monocytes Absolute Eosinophils Absolute Basophils RBC Morphology PT 10.5 INR 1.0 ABG Sample Site Left Radial ABG pH 7.38 ABG pCO2 75 H* ABG pO2 62 L ABG HCO3 44 H ABG Total CO2 41 H ABG O2 Saturation 91 L ABG Base Excess > 15 H FiO2 35 Sodium Potassium Chloride Carbon Dioxide Anion Gap BUN Creatinine Est GFR (CKD-EPI 2020) Glucose Calcium Total Bilirubin AST ALT Alkaline Phosphatase Troponin I < 50 NT-Pro-B Natriuret Pep Total Protein Albumin Urine Color Urine Clarity Urine pH Ur Specific [place] Urine Protein Urine Ketones Urine Blood Urine Nitrite Urine Bilirubin Urine Urobilinogen Ur Leukocyte Esterase Urine Glucose COVID-19 Source SARS-CoV-2 (PCR) Influenza Type A (PCR) Influenza Type B (PCR) RSV (PCR) 03/15/22 19:45 WBC RBC Hgb Hct MCV MCH MCHC RDW Plt Count MPV Immature Gran % Neutrophils % Lymphocytes % Monocytes % Eosinophils % Basophils % Nucleated RBC % Absolute Neutrophils Absolute Lymphocytes Absolute Monocytes Absolute Eosinophils Absolute Basophils RBC Morphology PT INR ABG Sample Site ABG pH ABG pCO2 ABG pO2 ABG HCO3 ABG Total CO2 ABG O2 Saturation ABG Base Excess FiO2 Sodium Potassium Chloride Carbon Dioxide Anion Gap BUN Creatinine Est GFR (CKD-EPI 2020) Glucose Calcium Total Bilirubin AST ALT Alkaline Phosphatase Troponin I NT-Pro-B Natriuret Pep Total Protein Albumin Urine Color Yellow Urine Clarity Sl Cloudy Urine pH 6.0 Ur Specific [place] 1.020 Urine Protein Negative Urine Ketones Negative Urine Blood Negative Urine Nitrite Negative Urine Bilirubin Negative Urine Urobilinogen 0.2 Ur Leukocyte Esterase Negative Urine Glucose Negative COVID-19 Source SARS-CoV-2 (PCR) Influenza Type A (PCR) Influenza Type B (PCR) RSV (PCR) Last Vital Signs Temp 38.1 C H 03/15/22 15:49 Pulse 82 03/15/22 20:02 Resp 16 03/15/22 20:14 BP 111/44 L 03/15/22 20:02 Pulse Ox 89 L 03/15/22 20:14 Time Spent Time spent with Patient: >75 minutes Time was spent: preparing to see the patient(eg.review tests), obtaining and/or reviewing separately otained hiistory, ordering medications,tests, procedures, referring, communicating with other health director of career resources and indepentently interpreting results
[2022-03-15 23:09] LABS: TSH (W/Ref FT4) 0.75 uIU/mL (0.36-3.74)
[2022-03-16] VITALS (27 sets, daily range): BP systolic 116–133; BP diastolic 64–76; PULSE 78–95; RESP 1–28; TEMP 36.6–37.5; O2SAT 81–99
[2022-03-16] MEDS: Albuterol/Ipratropium 3 ML UPD VIAL UPD ×6 (00:37→17:56)
[2022-03-16] MEDS: VANCOMYCIN 2,000 MG in Normal Saline 500 ML 250 MG IVPB (01:08)
[2022-03-16] MEDS: methylPREDNISolone SUCC 40 MG VIAL 80 MG IVP (01:15)
[2022-03-16] MEDS: Apixaban 5 MG TAB PO ×3 (01:56→20:50)
[2022-03-16] MEDS: Levothyroxine 100 MCG TAB PO ×2 (01:56→20:50)
[2022-03-16] MEDS: Potassium Chloride 20 MEQ TABCR 40 MEQ PO ×3 (01:57→16:35)
[2022-03-16 07:19] LABS: Abs Immature Grans 0.12 10^3/uL (0.0-0.06); Basophils % 0.1; HGB 10.8 g/dL (11.2-15.7); Immature Grans % 0.6; Lymphocytes % 4.7; MCH 27.8 pg (27.0-33.0); MCV 93 fL (80-95); MPV 8.8 fL (8.0-11.0); Monocytes % 1.8; Neutrophils % 92.8; Platelet Count 289 10^3/uL (130-400); RBC 3.89 10^6/uL (3.93-5.22); RDW 15.6 % (11.7-14.6); RDW-SD 53.1 fL; WBC 20.18 10^3/uL (4.4-10.8)
[2022-03-16 07:34] LABS: ALT 12 U/L (14-59); AST 13 U/L (15-37); Absolute Basophil Count 0.02 10^3/uL (0.0-0.2); Absolute Lymphocyte Count 0.95 10^3/uL (1.2-3.4); Absolute Monocyte Count 0.36 10^3/uL (0.1-0.8); Absolute Neutrophil Count 18.73 10^3/uL (1.2-6.7); Albumin 2.5 g/dL (3.4-5.0); Alkaline Phosphatase 80 U/L (46-116); BUN 14 mg/dL (7-18); Bilirubin, Total 0.3 mg/dL (0.2-1.0); CREATININE 0.8 mg/dL (0.55-1.02); Calcium 8.7 mg/dL (8.5-10.1); Chloride 96 mmol/L (98-107); Estimated GFR 77.75 (mL/min/1.73m2); Glucose 194 mg/dL (74-106); Magnesium 1.9 mg/dL (1.8-2.4); Potassium 3.7 mmol/L (3.5-5.1); Sodium 140 mmol/L (136-145); Total Protein 7.1 g/dL (6.4-8.2)
[2022-03-16] MEDS: Pantoprazole 20 MG TABCR PO ×2 (08:07→20:50)
[2022-03-16] MEDS: Amiodarone 200 MG TAB PO (08:07)
[2022-03-16] MEDS: Citalopram 10 MG TAB PO (08:07)
[2022-03-16] MEDS: Torsemide 20 MG TAB 60 MG PO ×2 (08:07→16:35)
[2022-03-16] MEDS: Cholecalciferol (Vitamin D3) 1,000 UNIT TAB 4000 UNITS PO (08:08)
[2022-03-16] MEDS: Vitamins B Comp w/C TAB 1 TAB PO (08:08)
[2022-03-16] MEDS: Tolterodine 2 MG CAPCR 4 MG PO (08:08)
[2022-03-16] MEDS: dilTIAZem 60 MG TAB PO ×3 (08:08→20:51)
[2022-03-16] MEDS: busPIRone 15 MG TAB PO ×2 (08:08→20:50)
[2022-03-16] MEDS: Insulin Aspart 300 UNITS/3 ML PEN SC ×4 (08:09→21:08)
[2022-03-16] MEDS: Mupirocin 2% Oint. 22 GM TUBE TP ×2 (08:10→20:52)
--- NOTE | 2022-03-16 10:12 | INITIAL_ITS ---
- If Service Date Differs Date of service: 03/16/22 Time of Service: 10:12 Care Management Initial Assess REASON FOR HOSPITALIZATION:: pneumonia, COPD exacerbation PAST MEDICAL HISTORY/PAST SURGICAL HISTORY:: All Active Problems. Pneumonia (Acute). Type 2 diabetes mellitus (Chronic). Atrial fibrillation (Chronic). CHF (congestive heart failure) (Chronic). HCAP (healthcare-associated pneumonia) (Acute). Pneumonia (Acute). Abnormal MRI (Acute). 01/19/20. Personal history of nicotine dependence (Acute). Acute on chronic diastolic CHF (congestive heart failure), NYHA class 1 (Acute). Acute on chronic respiratory failure with hypoxia and hypercapnia (Acute). Onychomycosis (Acute). Anterior epistaxis (Acute). Pulmonary nodule (Acute). Morbid obesity (Acute). Vitamin D deficiency (Acute). MRSA (methicillin resistant staph aureus) culture positive (Acute). Hypoxia (Acute). Hypothyroidism (Chronic). Bilateral cellulitis of lower leg (Acute). Localized swelling of both lower legs (Acute). On amiodarone therapy (Acute). Palliative care patient (Acute). Cellulitis of left lower leg (Acute). Plaque psoriasis (Acute). GERD (gastroesophageal reflux disease) (Chronic). Hypercholesterolemia (Acute). Obesity (Chronic). CHF (congestive heart failure) (Chronic). Family history unobtainable due to patient's condition (Acute). Medical History. Acute and chronic respiratory failure with hypercapnia. Acute exacerbation of chronic obstructive pulmonary disease. Acute on chronic respiratory failure with hypoxia and hypercapnia. Acute respiratory distress. Acute respiratory distress. Altered mental status. Arthritis. Cellulitis. bilateral lower extremities. Cellulitis. Chronic atrial fibrillation, unspecified. Chronic respiratory failure with hypoxia. COPD (chronic obstructive pulmonary disease). Diabetes mellitus. HCAP (healthcare-associated pneumonia). HCAP (healthcare-associated pneumonia). Hypercarbia. Methicillin susceptible Staphylococcus aureus infection as the cause of diseases classified elsewhere. Mood disorder. Morbid (severe) obesity with alveolar hypoventilation. Muscle weakness (generalized). Obesity. Pneumonia. Sepsis. Sepsis. Streptococcal bacteremia. Toxic metabolic enceph alopathy. Type 2 diabetes mellitus with hyperglycemia. Surgical History. H/O hand surgery. right index finger removal of tendon sheath ganglion. H/O: hysterectomy. History of carpal tunnel surgery of right wrist. History of excision of lesion. abdominal cyst removed. S/P appendectomy PREVIOUS FUNCTIONAL STATUS/SOCIAL/FAMILY SUPPORTS:: Marlen is a resident of the [facility]. She previously lived in a level three facility in [place], [place], but was relocated to the [facility] when the [facility] closed. She has a daughter, Karlie, who lives locally and is supportive. Marlen needs assistance with her ADLs which is provided by staff at the [facility]. CURRENT FUNCTIONAL STATUS:: Marlen was sitting up in her chair with an O2 mask on when CM met with her. She stated that she is having a much better day today, but that yesterday she didn't know where she was, as she reported that she was confused and disoriented. CM spoke to AWILDA Guerrero at the [facility], who requested that her daughter is involved in a conversation about goals of care. CM requested a Palliative consult, and Dr. Shetty plans to meet with her this afternoon. CM will continue to follow. ADVANCE DIRECTIVES:: On file; daughter Karlie Salazar is appointed as Health Care Agent. Has patient been provided with info about the portal/API?: Yes Did the patient sign up for the portal?: No CODE STATUS:: DNR/DNI INSURANCE COVERAGE / FINANCIAL ISSUES:: MCR/DIANA CURRENT HOME/COMMUNITY SERVICES/EQUIPMENT:: Marlen has a FWW and a wheelchair, and a Trilogy machine. She currently lives at the [facility] where she receives assistance with her care. She is a Palliative Care patient. PRIMARY CARE PHYSICIAN:: Evi Cloud POTENTIAL DISCHARGE NEEDS:: Follow up appointment with PCP and coordinated return to the [facility]. PATIENT/FAMILY EDUCATION NEEDS:: Review discharge instructions, limitations and plan of care; discuss Ask Me Three and self management needs. ANTICIPATED BARRIERS TO DISCHARGE:: None TRANSPORTATION:: Via [facility] wheelchair van. PLAN:: Anticipate Marlen will return to the [facility] when medically cleared by provider. She will follow up with her PCP and discharge plan of care as directed. She will be transported to the [facility] by [facility] wheelchair van coordinated by CM when ready. Palliative consult is ordered, to discuss goals of care. CM will continue to follow. Readmission - Within the Past 30 Days Yes or No: Y - Date of First Admission Date of 1st Admission: 02/16/22 - Date of this Admission Date of Admission: 03/15/22 This admission was: Through ED - Office Visit Since 1st Admission Have you seen your PCP in the office since discharge?: No - If the patient came from Ext. Facility Call the Facility to discuss the patient's admission: RYAN talked to Yolanda VP COMPLIANCE at the [facility] today, regarding Marlen's readmission. Yolanda stated that Marlen is not compliant with wearing her Trilogy machine while at the [facility]. She asked that RT/Pulmonology review options for masks for her Trilogy in order to increase compliance and effectiveness. Yolanda also requested that an AD be completed while at [facility]. Per chart review, Marlen has a recent COLST on file, as well as a HCA form, naming her daughter, Karlie, as her HCA. CM requested a Palliative care consultation to discuss goals of care, and requested that Karlie be involved in the conversation. - ED visits How many ED visits in the past 12 months: 7 - Assessment for Readmission Summary of readmission circumstances, based upon interviews: Marlen stated that she did feel ready for discharge on her last admission. She also reported that she had a bad day yesterday, and did not know where she was when she arrived. She stated that she is having a better day today. She is meeting with Palliative care today, who will be reaching out to her daughter to involve her in that conversation. Once she is medically cleared for discharge, she will return to the [facility], where she resides.
--- NOTE | 2022-03-16 11:28 | W.INDIABCONS ---
Date of service: 03/16/22 Time of Service: 11:28 Diabetes Inpatient Consult Reason for Visit: DM DESCRIPTION/ASSESSMENT: 73 year old resident of [facility], admitted with PNA with hx of CHF, DM2, COPD, morbid obesity. Most recent A1C (12/2021) 6.1% indicates excellent glycemic control. Not a candidate for diabetes inpatient education as resides in facility PLAN: will be available prn, will monitor po intake, labs and weight Time Spent in Nutritional Counseling and Treatment: 0
[2022-03-16 12:17] LABS: BE (Venous) > 15 mmol/L (-2-3); HCO3 (Venous) 44 mmol/L (23-28); O2 Sat (Venous) 75 %; TCO2 (Venous) 40 mmol/L (24-29); pH (Venous) 7.43 (7.31-7.41); pO2 (Venous) 40 mmHg
[2022-03-16 12:19] LABS: pCO2 (Venous) 65 mmHg (41-51)
--- NOTE | 2022-03-16 13:43 | W.PM.PROGNOT ---
Date of Service Date of service: 03/16/22 Time of Service: 13:43 Assessment and Plan Assessment and plan (1) Acute and chronic respiratory failure with hypercapnia: Assessment and plan: This is 71-year-old lady who has recurrent admissions for respiratory failure and now has also probable pneumonia. She will be admitted for BiPAP treatment. She is a DNR/DNI. (2) Pneumonia: Start date: 03/15/22 Status: Acute Assessment and plan: Probable bilateral infiltrates at the bases with patient to be treated with ceftriaxone and vancomycin. Follow-up clinically and with imaging as indicated. Plans are to [facility] to the [facility] on oral therapy once stabilized. (3) Hypoxia: Status: Acute Assessment and plan: This problem is acutely exacerbated and patient will be placed on O2 supplementation with BiPAP. Long-term she should use her Trilogy device at the [facility] to avoid decompensation. (4) CHF (congestive heart failure): Status: Chronic Assessment and plan: This is a chronic problem slightly exacerbated with patient to continue on torsemide dosing as an outpatient. She did receive extra Lasix in the ED. Trend labs and replete electrolytes as needed. (5) Type 2 diabetes mellitus: Status: Chronic Assessment and plan: Glucometers before meals and at bedtime with short acting insulin coverage while in the hospital and on IV Solu-Medrol for exacerbation of COPD. Steroids may exacerbate her hyperglycemia. Qualifiers: Diabetes mellitus complication status: without complication Diabetes mellitus ferry terminal agent insulin use: without ferry terminal agent use Qualified Code(s): E11.9 - Type 2 diabetes mellitus without complications (6) Acute exacerbation of chronic obstructive pulmonary disease: Assessment and plan: IV Solu-Medrol and aggressive nebulizer treatments with BiPAP support for hypoxemia and respiratory failure. (7) Atrial fibrillation: Status: Chronic Assessment and plan: Monitor on outpatient medical therapy, patient is on Eliquis. Qualifiers: Atrial fibrillation type: persistent (not longstanding) Qualified Code(s): I48.19 - Other persistent atrial fibrillation Subjective Subjective Patient reports: no new complaints, tolerating a regular diet, bowel movement and afebrile; denies flatus, diarrhea, nausea or vomiting Interval history since last seen: I spoke with Marlen this afternoon and she stated she had not seen a Doctor all day and was not going to wear the BiPap. I reminded her she saw Dr Shetty and I earlier in the day, she has no recollection, I asked her if she recalled agreeing to return to the [facility] and she said she did not. We put the BiPap back on and when I returned later she seemed slightly more coherent and oriented, however no recollection of prior conversations today. We will discuss again tomorrow am. Exam Narrative Exam Narrative: General: Patient is morbidly obese lying in bed with her head up at a 45 degree angle with BiPAP in place. She is alert and oriented, conversant, minor distress at present HEENT: Normocephalic, eyes with pupils equal and reactive light symmetrically, extraocular movement intact and sclera anicteric. Oropharynx with dry mucosa. Neck: Supple without JVD. Back: Stooped posture without CVA tenderness. Lungs: Diffusely decreased aeration especially over the bases with bronchovesicular breath sounds diffusely, slightly increased expiratory phase with scant expiratory wheeze. No focalizing rales. Breast: Exam deferred. Heart: Regular rate with irregular rhythm and 4/6 holosystolic murmur. No rubs or gallops appreciated. Abdomen: Obese contour with pannus, soft and nontender to palpation with no focalizing tenderness or rebound. No palpable hepatosplenomegaly. Genitalia/rectal: Exam deferred. Extremities: Chronic 3+ nonpitting edema both lower extremities with slightly erythematous skin with soft compression stocking over both legs. No skin breakdown or drainage noted. Fair capillary refill. Skin: Skin changes of lower extremities with otherwise normal color, warm and dry. Neuro: Cranial nerves II through XII grossly intact. No focal motor deficits. No tremor. Psych: Flattened affect and mood. Remote and memory grossly intact Objective Last Vital Signs Temp 37.1 C 03/16/22 11:36 Pulse 85 03/16/22 13:17 Resp 16 03/16/22 13:17 BP 116/76 03/16/22 11:36 Pulse Ox 97 03/16/22 13:17 Laboratory Results - last 24 hr 03/15/22 03/15/22 03/15/22 12:07 12:07 16:30 WBC 19.68 H RBC 4.12 Hgb 11.2 Hct 38.5 MCV 93 MCH 27.2 MCHC 29.1 L RDW 15.9 H Plt Count 283 MPV 8.9 Immature Gran % 0.5 Neutrophils % 80.2 Lymphocytes % 9.9 Monocytes % 7.7 Eosinophils % 1.3 Basophils % 0.4 Nucleated RBC % 0.0 Absolute Neutrophils 15.78 H Absolute Lymphocytes 1.95 Absolute Monocytes 1.52 H Absolute Eosinophils 0.26 Absolute Basophils 0.08 RBC Morphology Normal PT INR ABG Sample Site ABG pH ABG pCO2 ABG pO2 ABG HCO3 ABG Total CO2 ABG O2 Saturation ABG Base Excess VBG pH VBG pCO2 VBG pO2 VBG HCO3 VBG Total CO2 VBG O2 Saturation VBG Base Excess FiO2 Sodium 136 Potassium 4.1 Chloride 97 L Carbon Dioxide 36.7 H Anion Gap 2.3 L BUN 15 Creatinine 0.9 Est GFR (CKD-EPI 2020) 67.50 Glucose 116 H Calcium 8.7 Magnesium Total Bilirubin 0.4 AST 15 ALT 12 L Alkaline Phosphatase 86 Troponin I < 50 NT-Pro-B Natriuret Pep 342 H Total Protein 7.8 Albumin 2.8 L TSH Urine Color Urine Clarity Urine pH Ur Specific [place] Urine Protein Urine Ketones Urine Blood Urine Nitrite Urine Bilirubin Urine Urobilinogen Ur Leukocyte Esterase Urine Glucose COVID-19 Source Nasopharynx SARS-CoV-2 (PCR) Negative Influenza Type A (PCR) Negative Influenza Type B (PCR) Negative RSV (PCR) Negative 03/15/22 03/15/22 03/15/22 17:00 17:15 19:27 WBC RBC Hgb Hct MCV MCH MCHC RDW Plt Count MPV Immature Gran % Neutrophils % Lymphocytes % Monocytes % Eosinophils % Basophils % Nucleated RBC % Absolute Neutrophils Absolute Lymphocytes Absolute Monocytes Absolute Eosinophils Absolute Basophils RBC Morphology PT 10.5 INR 1.0 ABG Sample Site Left Radial ABG pH 7.38 ABG pCO2 75 H* ABG pO2 62 L ABG HCO3 44 H ABG Total CO2 41 H ABG O2 Saturation 91 L ABG Base Excess > 15 H VBG pH VBG pCO2 VBG pO2 VBG HCO3 VBG Total CO2 VBG O2 Saturation VBG Base Excess FiO2 35 Sodium Potassium Chloride Carbon Dioxide Anion Gap BUN Creatinine Est GFR (CKD-EPI 2020) Glucose Calcium Magnesium Total Bilirubin AST ALT Alkaline Phosphatase Troponin I < 50 NT-Pro-B Natriuret Pep Total Protein Albumin TSH Urine Color Urine Clarity Urine pH Ur Specific [place] Urine Protein Urine Ketones Urine Blood Urine Nitrite Urine Bilirubin Urine Urobilinogen Ur Leukocyte Esterase Urine Glucose COVID-19 Source SARS-CoV-2 (PCR) Influenza Type A (PCR) Influenza Type B (PCR) RSV (PCR) 03/15/22 03/15/22 03/16/22 19:45 21:53 07:10 WBC RBC Hgb Hct MCV MCH MCHC RDW Plt Count MPV Immature Gran % Neutrophils % Lymphocytes % Monocytes % Eosinophils % Basophils % Nucleated RBC % Absolute Neutrophils Absolute Lymphocytes Absolute Monocytes Absolute Eosinophils Absolute Basophils RBC Morphology PT INR ABG Sample Site ABG pH ABG pCO2 ABG pO2 ABG HCO3 ABG Total CO2 ABG O2 Saturation ABG Base Excess VBG pH VBG pCO2 VBG pO2 VBG HCO3 VBG Total CO2 VBG O2 Saturation VBG Base Excess FiO2 Sodium 140 Potassium 3.7 Chloride 96 L Carbon Dioxide 42.0 H Anion Gap 2.0 L BUN 14 Creatinine 0.8 Est GFR (CKD-EPI 2020) 77.75 Glucose 194 H Calcium 8.7 Magnesium 1.9 Total Bilirubin 0.3 AST 13 L ALT 12 L Alkaline Phosphatase 80 Troponin I NT-Pro-B Natriuret Pep Total Protein 7.1 Albumin 2.5 L TSH 0.75 Urine Color Yellow Urine Clarity Sl Cloudy Urine pH 6.0 Ur Specific [place] 1.020 Urine Protein Negative Urine Ketones Negative Urine Blood Negative Urine Nitrite Negative Urine Bilirubin Negative Urine Urobilinogen 0.2 Ur Leukocyte Esterase Negative Urine Glucose Negative COVID-19 Source SARS-CoV-2 (PCR) Influenza Type A (PCR) Influenza Type B (PCR) RSV (PCR) 03/16/22 03/16/22 07:10 12:10 WBC 20.18 H RBC 3.89 L Hgb 10.8 L Hct 36.0 MCV 93 MCH 27.8 MCHC 30.0 L RDW 15.6 H Plt Count 289 MPV 8.8 Immature Gran % 0.6 Neutrophils % 92.8 Lymphocytes % 4.7 Monocytes % 1.8 Eosinophils % 0.0 Basophils % 0.1 Nucleated RBC % 0.0 Absolute Neutrophils 18.73 H Absolute Lymphocytes 0.95 L Absolute Monocytes 0.36 Absolute Eosinophils 0.00 Absolute Basophils 0.02 RBC Morphology PT INR ABG Sample Site ABG pH ABG pCO2 ABG pO2 ABG HCO3 ABG Total CO2 ABG O2 Saturation ABG Base Excess VBG pH 7.43 H VBG pCO2 65 H* VBG pO2 40 VBG HCO3 44 H VBG Total CO2 40 H VBG O2 Saturation 75 VBG Base Excess > 15 H FiO2 Sodium Potassium Chloride Carbon Dioxide Anion Gap BUN Creatinine Est GFR (CKD-EPI 2020) Glucose Calcium Magnesium Total Bilirubin AST ALT Alkaline Phosphatase Troponin I NT-Pro-B Natriuret Pep Total Protein Albumin TSH Urine Color Urine Clarity Urine pH Ur Specific [place] Urine Protein Urine Ketones Urine Blood Urine Nitrite Urine Bilirubin Urine Urobilinogen Ur Leukocyte Esterase Urine Glucose COVID-19 Source SARS-CoV-2 (PCR) Influenza Type A (PCR) Influenza Type B (PCR) RSV (PCR) Reviewed Pertinent PMH: Yes Time Spent with Patient Time Spent with Patient: 25-34 minutes Time was spent: preparing to see the patient(eg.review tests), obtaining and/or reviewing separately otained hiistory, ordering medications,tests, procedures, counseling the patient and care coordination
[2022-03-16] MEDS: VANCOMYCIN/WATER (PEG) 1.5 GM/300 ML BAG IV (14:08)
[2022-03-16] MEDS: Normal Saline Flush 10 ML SYR IVP (14:08)
--- NOTE | 2022-03-16 15:34 | PHA.REVIEW2 ---
Pharmacy Admission Review - Admission Clinical Review (Last Reviewed 03/16/22 @ 07:48 by Shaka Sandoval) Pneumonia (Acute) Hypoxia (Acute) bee venom protein (honey bee) Allergy (Unknown, Verified 03/15/22 15:58) Penicillins Allergy (Unknown, Verified 03/15/22 15:58) strawberry Allergy (Unknown, Verified 03/15/22 15:58) Resuscitation Status DNR/DNI Height 5 ft 6 in Weight 133 kg - Renal Dosing Renal Dosing: BUN 14 mg/dL (7-18) 03/16/22 07:10 Creatinine 0.8 mg/dL (0.55-1.02) 03/16/22 07:10 Medications needing adjustments: Reviewed (crcl = 70) List of meds needing interventions: n/a - Anticoagulation Anticoagulation: Hgb 10.8 g/dL (11.2-15.7) L 03/16/22 07:10 Hct 36.0 % (36.0-46.0) 03/16/22 07:10 Plt Count 289 10^3/uL (130-400) 03/16/22 07:10 INR 1.0 (0.9-1.1) 03/15/22 17:00 Creatinine 0.8 mg/dL (0.55-1.02) 03/16/22 07:10 DVT Prophylaxis: Reviewed Medications: Apixaban Therapeutic Anticoagulation: Reviewed Medications: Apixaban (apixiban 5 mg BID (indication: Afib)) - Opiate Usage Evaluate Pain Scale/Pains Meds: Reviewed (tramadol prn, has not received any doses while here) Scheduled Bowel Reg ordered if on Opiates?: No (prn) - Relevant Labs Sodium 140 mmol/L (136-145) 03/16/22 07:10 Potassium 3.7 mmol/L (3.5-5.1) 03/16/22 07:10 Chloride 96 mmol/L (98-107) L 03/16/22 07:10 Magnesium 1.9 mg/dL (1.8-2.4) 03/16/22 07:10 Electrolytes, C-Reactive P, ESR: Reviewed - DM Control DM Control: Glucose 194 mg/dL (74-106) H 03/16/22 07:10 Finger Stick Blood Glucose 192 Finger Stick Blood Glucose 192 Finger Stick Blood Glucose 202 Finger Stick Blood Glucose 202 DM Control: Reviewed (insulin aspart sliding scale AC & HS) Insulin Dosing, Diabetic Medication: also on home med list, not ordered: insulin glargine 20 units QHS, metformin 1000 mg BID, trulicity 1.5 mg weekly. Last a1c = 6.1% (12/2021) - Cardiac Review Cardiac Review: Troponin I < 50 ng/L (<or=60) 03/15/22 19:27 NT-Pro-B Natriuret Pep 342 pg/mL (<300) H 03/15/22 12:07 BP, HR, EF%: Reviewed - Qtc Review QTc: Reviewed (QTc = 490 on 03/15) - IV to PO Switch IV Medications: Reviewed (IV vanco for now, switch to PO option when indicated) - Home Meds Home Med List reviewed: Reviewed Relevent Home Meds Not ordered & why?: symbicort & stiolto inhaler - duoneb scheduled q6, diltiazem XR 240 mg - 60 mg IR TID ordered, some diabetes meds held - lantus, trulicity, metformin (trulicity is not on formulary) - Current meds Current Medication Order Review: Reviewed Antibiotic Activity - Pharmacy Antibiotic Review Pharmacy Antibiotic Activity: Reviewed, no change - Antibiotic Information Antibiotic Review Info: ceftriaxone 1 gram daily + vanco 1.5 gram q14h (per kinetics program, anticipated trough = 13.8) - vanco loading dose 2 grams given 03/16 @ 0100
[2022-03-16] MEDS: cefTRIAXone 1 GM/50 ML BAG IVPB (17:54)
[2022-03-16] MEDS: Albuterol 2.5 MG/3 ML INH SOLN VIAL UPD (20:50)
[2022-03-17] VITALS (9 sets, daily range): BP systolic 128–138; BP diastolic 68–86; PULSE 78–91; RESP 1–20; TEMP 36.3–37.5; O2SAT 92–99
[2022-03-17] MEDS: Benzonatate 100 MG CAP PO ×2 (00:06→08:32)
[2022-03-17] MEDS: Albuterol/Ipratropium 3 ML UPD VIAL UPD ×3 (00:06→11:30)
[2022-03-17] MEDS: guaiFENesin 600 MG TABCR PO ×2 (00:06→08:32)
[2022-03-17] MEDS: VANCOMYCIN/WATER (PEG) 1.5 GM/300 ML BAG IV (03:52)
[2022-03-17 06:38] LABS: Abs Immature Grans 0.12 10^3/uL (0.0-0.06); Absolute Lymphocyte Count 1.41 10^3/uL (1.2-3.4); Absolute Monocyte Count 0.99 10^3/uL (0.1-0.8); Basophils % 0.2; Eosinophils % 0.1; HCT 37.2 % (36.0-46.0); HGB 11.3 g/dL (11.2-15.7); Immature Grans % 0.6; Lymphocytes % 7.3; MCH 27.7 pg (27.0-33.0); MCHC 30.4 % (32.0-36.0); MCV 91 fL (80-95); MPV 9.4 fL (8.0-11.0); Monocytes % 5.1; Neutrophils % 86.7; Platelet Count 359 10^3/uL (130-400); RBC 4.08 10^6/uL (3.93-5.22); RDW 15.9 % (11.7-14.6); RDW-SD 52.4 fL; WBC 19.34 10^3/uL (4.4-10.8)
[2022-03-17 06:41] LABS: Absolute Basophil Count 0.04 10^3/uL (0.0-0.2); Absolute Eosinophil Count 0.02 10^3/uL (0.0-0.7); Absolute Neutrophil Count 16.77 10^3/uL (1.2-6.7)
[2022-03-17 06:57] LABS: Anion Gap 3.2 mmol/L (3-11); BUN 19 mg/dL (7-18); CO2 36.8 mmol/L (21.0-32.0); CREATININE 0.8 mg/dL (0.55-1.02); Calcium 9.1 mg/dL (8.5-10.1); Chloride 96 mmol/L (98-107); Estimated GFR 77.75 (mL/min/1.73m2); Glucose 164 mg/dL (74-106); Sodium 136 mmol/L (136-145)
[2022-03-17] MEDS: Insulin Aspart 300 UNITS/3 ML PEN SC ×2 (08:29→11:56)
[2022-03-17] MEDS: Apixaban 5 MG TAB PO (08:30)
[2022-03-17] MEDS: Mupirocin 2% Oint. 22 GM TUBE TP (08:30)
[2022-03-17] MEDS: predniSONE 20 MG TAB 40 MG PO (08:30)
[2022-03-17] MEDS: Normal Saline Flush 10 ML SYR IVP (08:30)
[2022-03-17] MEDS: Citalopram 10 MG TAB PO (08:30)
[2022-03-17] MEDS: Potassium Chloride 20 MEQ TABCR 40 MEQ PO (08:31)
[2022-03-17] MEDS: dilTIAZem 60 MG TAB PO (08:31)
[2022-03-17] MEDS: Amiodarone 200 MG TAB PO (08:31)
[2022-03-17] MEDS: Pantoprazole 20 MG TABCR PO (08:31)
[2022-03-17] MEDS: Torsemide 20 MG TAB 60 MG PO (08:31)
[2022-03-17] MEDS: Tolterodine 2 MG CAPCR 4 MG PO (08:32)
[2022-03-17] MEDS: Cholecalciferol (Vitamin D3) 1,000 UNIT TAB 4000 UNITS PO (08:32)
[2022-03-17] MEDS: Vitamins B Comp w/C TAB 1 TAB PO (08:32)
[2022-03-17] MEDS: busPIRone 15 MG TAB PO (08:32)
--- NOTE | 2022-03-17 10:12 | W.PALLCONSUL ---
Date of service: 03/16/22 Time of Service: 16:00 History of Present Illness History of Present Illness Chief Complaint: Mental status changes secondary to hypercapnia Narrative: Marlen is a 71-year-old woman she has morbid obesity type 2 diabetes COPD and sleep apnea. She requires the constant use of trilogy. Without this she starts to build up her CO2, gets agitated and has mental status changes. She is presently living at the [facility]. Nursing became concerned and sent her to [facility]. She and I had had a discussion approximately a week ago at which time she stated she did not want to return to the hospital and she understood the consequences which may be . The plan was to meet with Yolanda KAISER, her daughter Karlie, Marlen, and myself. Unfortunately this meeting had not yet taken place. I was asked by care management and hospitalist team to discuss future episodes so that Marlen's wishes could be followed Consults Consult date: 03/16/22 Requesting physician: Navin Davidson Assessment and Plan Assessment and plan (1) Hypercapnia: Status: Acute (2) Acute on chronic respiratory failure with hypoxia and hypercapnia: Status: Acute (3) Morbid obesity: Status: Acute (4) Palliative care patient: Status: Acute Assessment and plan: Marlen is a 71-year-old woman well-known to me. I have been following her both at the detention and when she is hospitalized for 4+ years. I met with hospitalist and care management prior to my visit today with Marlen. During Marlen's in my visit we did have her daughter Karlie on speaker phone. We talked about the causes of Marlen returning to [facility]. Karlie and Marlen both were able to verbalize that it is really Marlen not using her trilogy machine as prescribed which is causing her hypercapnia which then causes her mental status changes. They understand that that causes her to decrease her ventilation and then make matters worse. Marlen was very firm when she said that she does not want to return to the hospital. She wants to be treated at the [facility]. She understands that the next time that she becomes hypercapnic, if they are unable to have her use the trilogy machine properly, she may . Marlen stated that she was okay with that, and Karlie was comfortable with her mother's decision. She has a couple of other COLST forms. We did review this COLST form and she is clearly a DNR/DNI. She wants most of her care towards her comfort. She does not want a feeding tube but is okay with antibiotics given in the detention and a trial of hydration if they are able to do it at the detention. She does not want to return to [facility]. She has capacity today. She understands that she may if she stays at the [facility] because of her mental status changes etc. accompanying her disuse of Trelegy. She request that nurses at the [facility] not send her to the hospital. Her daughter Karlie states that she has never been asked if she wants her mom to be evaluated at [facility], but is only told about her mother's condition when her mother is in route to the hospital and the decision has been made. Again Karlie is comfortable with her mother's decision not to return to the hospital. Both Karlie and Marlen are aware that if she stays at the [facility] she may . We did talk about a plan for the next episode because certainly there will be another episode. The plan is to work with Marlen to convince her to use her trilogy machine. To this end Yolanda KAISER is working with the company to see if they can find a more comfortable mask. Yolanda will also be working with trying to keep the machine from beeping regularly which keeps Marlen awake. Marlen and Karlie also agree to a low-dose of morphine that can help with the work of breathing. I would recommend either 5 mg liquid or 1 mg subcu of morphine 1 she is in respiratory distress. Marlen is between a rock and a hard place. The [facility] is doing everything possible but she is making choices of not using the trilogy machine which is really the arrington to keeping her from having the mental status changes. Both Marlen and Karlie are aware of it. I will continue to follow Marlen I recommend that her catheter be DC'd and she did ambulating as quickly as possible. The original COLST went with Marlen. A copy has gone to the [facility] and into Marlen's file at [facility] Review of Systems Narrative: Marlen states that today she feels fine. She does not remember the episode which happened yesterday causing her to be shipped to [facility]. She is baseline regarding her shortness of breath. She does not have any chest pain. She has no GI complaints including nausea vomiting constipation or diarrhea. She does have a Hoffmann in place due to ambulation difficulties coupled with mental status changes [facility] All Active Problems (Updated 03/17/22 @ 10:19 by Christa Shetty MD, DC) Palliative care patient (Acute) Hypercapnia (Acute) Pneumonia (Acute) Type 2 diabetes mellitus (Chronic) Atrial fibrillation (Chronic) CHF (congestive heart failure) (Chronic) HCAP (healthcare-associated pneumonia) (Acute) Pneumonia (Acute) Abnormal MRI (Acute) 01/19/20 Personal history of nicotine dependence (Acute) Acute on chronic diastolic CHF (congestive heart failure), NYHA class 1 (Acute) Acute on chronic respiratory failure with hypoxia and hypercapnia (Acute) Onychomycosis (Acute) Anterior epistaxis (Acute) Pulmonary nodule (Acute) Morbid obesity (Acute) Vitamin D deficiency (Acute) MRSA (methicillin resistant staph aureus) culture positive (Acute) Hypoxia (Acute) Hypothyroidism (Chronic) Bilateral cellulitis of lower leg (Acute) Localized swelling of both lower legs (Acute) On amiodarone therapy (Acute) Palliative care patient (Acute) Cellulitis of left lower leg (Acute) Plaque psoriasis (Acute) GERD (gastroesophageal reflux disease) (Chronic) Hypercholesterolemia (Acute) Obesity (Chronic) CHF (congestive heart failure) (Chronic) Family history unobtainable due to patient's condition (Acute) Medical History Acute and chronic respiratory failure with hypercapnia Acute exacerbation of chronic obstructive pulmonary disease Acute on chronic respiratory failure with hypoxia and hypercapnia Acute respiratory distress Acute respiratory distress Altered mental status Arthritis Cellulitis bilateral lower extremities Cellulitis Chronic atrial fibrillation, unspecified Chronic respiratory failure with hypoxia COPD (chronic obstructive pulmonary disease) Diabetes mellitus HCAP (healthcare-associated pneumonia) HCAP (healthcare-associated pneumonia) Hypercarbia Methicillin susceptible Staphylococcus aureus infection as the cause of diseases classified elsewhere Mood disorder Morbid (severe) obesity with alveolar hypoventilation Muscle weakness (generalized) Obesity Pneumonia Sepsis Sepsis Streptococcal bacteremia Toxic metabolic encephalopathy Type 2 diabetes mellitus with hyperglycemia Surgical History H/O hand surgery right index finger removal of tendon sheath ganglion H/O: hysterectomy History of carpal tunnel surgery of right wrist History of excision of lesion abdominal cyst removed S/P appendectomy Family History Father Heart disease 2 [place], at 62 Mother Heart disease Social History Smoking/Tobacco Use Status: Former Tobacco Use Smoking risk assessment performed?: Yes Alcohol Intake: never Drug use: Never Substance use type: does not use Do you feel safe at home: Yes Do you feel safe in your relationship?: Yes Exam Narrative Exam Narrative: Morbidly obese 71-year-old woman with multiple comorbidities including COPD, congestive heart failure, and hypercapnia due to poor ventilation. She is at her baseline regarding her mental status. There is very little air movement but I did not hear any wheezes today. Her heart is rate controlled. Her mood is forthright and does not appear depressed Results Last Vital Signs Temp 97.3 F L 03/17/22 06:37 Pulse 78 03/17/22 06:37 Resp 20 03/17/22 06:37 BP 128/76 03/17/22 06:37 Pulse Ox 92 03/17/22 06:37 Labs Result diagrams: 03/17/22 06:19 03/17/22 06:19 Labs: Laboratory Results - last 24 hr 03/16/22 03/17/22 03/17/22 12:10 06:19 06:19 WBC 19.34 H RBC 4.08 Hgb 11.3 Hct 37.2 MCV 91 MCH 27.7 MCHC 30.4 L RDW 15.9 H Plt Count 359 MPV 9.4 Immature Gran % 0.6 Neutrophils % 86.7 Lymphocytes % 7.3 Monocytes % 5.1 Eosinophils % 0.1 Basophils % 0.2 Nucleated RBC % 0.0 Absolute Neutrophils 16.77 H Absolute Lymphocytes 1.41 Absolute Monocytes 0.99 H Absolute Eosinophils 0.02 Absolute Basophils 0.04 VBG pH 7.43 H VBG pCO2 65 H* VBG pO2 40 VBG HCO3 44 H VBG Total CO2 40 H VBG O2 Saturation 75 VBG Base Excess > 15 H Sodium 136 Potassium 4.0 Chloride 96 L Carbon Dioxide 36.8 H Anion Gap 3.2 BUN 19 H Creatinine 0.8 Est GFR (CKD-EPI 2020) 77.75 Glucose 164 H Calcium 9.1 Magnesium 2.0
--- NOTE | 2022-03-17 12:18 | W.PM.DS.N ---
Date of service: 03/17/22 Time of Service: 12:19 DS: Diagnosis Discharge Diagnosis (1) Hypercapnia: Status: Acute (2) Acute on chronic respiratory failure with hypoxia and hypercapnia: Status: Acute (3) Morbid obesity: Status: Acute (4) Palliative care patient: Status: Acute Discharge Plan Disposition Patient Disposition: [facility]way Facility(SNF) Condition: Poor Discharge Details Reason For Visit: Pneumonia,COPD Exacerbation Admit Date/Time: 03/15/22 18:55 Admit Provider: Shaka Sandoval Attending Provider: Shaka Sandoval Primary Care Provider: Evi Cloud Hospital Course Hospital Course: This is a 71-year-old female patient who resides at the [facility] with a past medical history of CHF, chronic atrial fibrillation on Eliquis, Amiodarone and Cardizem, who also is oxygen dependent with morbid obesity and obstructive sleep apnea.? She does wear CPAP; Trilogy at night.?On the day of admission, she had increasing dyspnea and hypoxemia with a pulse oximeter into the 70s.? She was given nebulizers and was taken to the [facility] ED for evaluation where she was found to have probable institution acquired pneumonia and possibly exacerbation of her CHF her BNP was slightly elevated.? Patient developed a fever.? She did not have any evidence of UTI.? She is morbidly obese and not very mobile.? She also has diffuse skin changes which appear to be psoriasis with ulcerations.? Her legs were both wrapped.? She was admitted to the hospital for antibiotics and management of pneumonia.? She was started on Ceftriazone IV. She is being discharged with Cefpodoxime for 10 days. She has negative blood cultures for hours. Potassium during this hospitalization has been normal. She has not had fevers, other vital signs are stable, at her baseline as well as her lung sounds being distant, but still some rales, also her norm. SPO2 has been greater than 90% ranging from 2 LPM NC to BiPap at naps and sleep. ?Her Torsemide is increased to 60 mg twice a day.? She is not acutely short of breath. She does have skin lesions, none of which look like cellulitis, although they are irritated, recommend continuing Triamcinolone since that is working.? She feels she is back to baseline and agrees with the plan for her to return to the [facility] today.?? Yesterday there was a meeting with Dr Shetty Marlen and her daughter Karlie regarding her frequently increasing hospitalizations and it was decided Marlen would not be transported to the hospital if she has acute exacerbation of respiratory failure, she will be treated with comfort care at [facility].? Marlen is in agreement with this plan.? She understands it will be of great benefit to her to use the Trilogy device during naps and sleep and anytime she is feeling short of breath.? If she does not use the Trilogy she understands that she will decompensate, go into acute respiratory failure and probably .? Her COLST was reviewed and changed to include ?Do not transfer to the Hospital?. Patient and Karlie are in agreement with decision. ?Of note, the current diuretic dose, Torsemide 60 mg BID, can be increased as recommended by the provider at [facility][1].? She is discharged, stable on 2 LPM NC, SPO2 95% prior to departure while sitting up in a chair, and able to speak in full sentences. I discussed her wishes and the ?change to her COLST with the [employer] at [facility] and sent prescriptions as requested. A copy of the new COLST was faxed to [facility]. Discussed with Dr Davidson. Home Meds and New Rx's Prescriptions: New guaifenesin [Mucus Relief ER] 600 mg Tablet Extended Release 12hr 600 mg PO BID Qty: 20 0RF prednisone 20 mg Tablet 40 mg PO DAILY Qty: 14 0RF morphine concentrate 100 mg/5 mL (20 mg/mL) solution See Rx Instructions .ROUTE .COMPLEX Qty: 30 0RF Rx Instructions: 5-20 mg every 2-3 hours as needed for pain or shortness of breath lorazepam [Ativan] 0.5 mg tablet 0.5 mg PO Q3H PRN PRNQty: 20 0RF cefpodoxime 200 mg tablet 200 mg PO BID Qty: 20 0RF Rx Instructions: must administer with a meal/food Continued pantoprazole 20 mg tablet,delayed release (DR/EC) 20 mg PO BID Stiolto Respimat 2.5-2.5 mcg/actuation mist 2 puff inhalation DAILY Qty: 4 12RF Deep Sea Nasal 0.65 % aerosol,spray 4 spray NS QID PRN PRN Rx Instructions: 1 spray each nostril QID budesonide-formoterol [Symbicort] 80-4.5 mcg/actuation HFA aerosol inhaler 2 puff inhalation Q12H calcium carbonate [Tums] 200 mg calcium (500 mg) tablet,chewable 400 mg PO Q4H PRN (Reason: dyspepsia) (DME) BiPap See Rx Instructions .Route .MEDSUPPLY Qty: 1 0RF Rx Instructions: See internal note aluminum hydroxide Ointment 1 applic topical DAILY citalopram 10 mg tablet 10 mg PO DAILY diltiazem HCl [DILT-XR] 240 mg capsule,ext.rel 24h degradable 240 mg PO QAM acetaminophen [Tylenol] 325 mg Tablet 650 mg PO Q4H PRN epinephrine 0.3 mg/0.3 mL Auto-Injector 0.3 mg IM PRN PRN amiodarone 200 mg tablet 200 mg PO DAILY albuterol sulfate 90 mcg/actuation HFA aerosol inhaler 2 inh INHALATION .Q4H,PRN PRN Rx Instructions: TID PRN Per MAR tolterodine 4 mg capsule,extended release 24hr 4 mg PO DAILY AM insulin glargine [Lantus Solostar U-100 Insulin] 100 unit/mL (3 mL) Insulin Pen 20 unit SUBCUT HS Qty: 0 0RF levothyroxine 100 mcg Tablet 100 mcg PO HS Trulicity 1.5 mg/0.5 mL pen injector 1.5 mg SUBCUT QWEEK polyethylene glycol 3350 [Miralax] 17 gram/dose powder 17 g PO DAILY Rx Instructions: PRN vitamin B complex Tablet 1 tab PO DAILY metformin 1,000 mg tablet 1,000 mg PO BID potassium chloride 20 mEq tablet,ER particles/crystals 40 meq PO BIDWMEAL buspirone 15 mg tablet 15 mg PO BID tramadol 100 mg tablet 100 mg PO QHS PRN Rx Instructions: TID MAX 400mg daily insulin aspart U-100 [Novolog Flexpen U-100 Insulin] 100 unit/mL (3 mL) Insulin Pen 1 sliding scale dose SUBCUT USEASDIRECTD cholecalciferol (vitamin D3) [Vitamin D3] 50 mcg (2,000 unit) Capsule 4,000 unit PO 1XD Eliquis 5 mg Tablet 5 mg PO BID albuterol sulfate 2.5 mg /3 mL (0.083 %) Solution For Nebulization 2.5 mg UPD Q2H PRN PRNQty: 75 0RF ipratropium-albuterol 0.5 mg-3 mg(2.5 mg base)/3 mL Solution For Nebulization 3 ml UPD Q6H PRN PRNQty: 90 0RF torsemide 20 mg tablet 60 mg PO BID DIURETIC Qty: 0 0RF Rx Instructions: 60mg BID mupirocin 2 % ointment 1 applic topical BID Qty: 22 0RF Discontinued doxycycline hyclate 100 mg Capsule 100 mg PO BID Discharge Instructions Instructions: COPD (Chronic Obstructive Pulmonary Disease) (DC), Pneumonia (DC) Stand Alone Forms: Nursing Discharge Form Referrals: Evi Cloud [Primary Care Provider] - Activity:: Activity as Tolerated Equipment/Supplies:: Oxygen (L/min Below) Diet:: As Tolerated Discharge Orders Discharge Orders: Discharge Order (Routine); Ordered 03/17/22 Ordered By: Mali Conner Discharge Data Discharge Date/Time-TO BE ENTERED AT DEPARTURE: 03/17/22 13:05 DS: Summary Time Spent with Patient providing and/or coordinating discharge services: Greater than 30 minutes Status at Discharge Functional status at discharge: wheelchair bound Overall status at discharge: patient is back to baseline Mental Status: mental status grossly normal Speech and Movement: speech and movement normal Mood: congruent mood Affect: normal affect Exam Narrative Exam Narrative: General: Patient is morbidly obese lying in bed with her head up at a 45 degree angle with BiPAP in place. She is alert and oriented, conversant, minor distress at present HEENT: Normocephalic, eyes with pupils equal and reactive light symmetrically, extraocular movement intact and sclera anicteric. Oropharynx with dry mucosa. Neck: Supple without JVD. Back: Stooped posture without CVA tenderness. Lungs: Diffusely decreased aeration especially over the bases with bronchovesicular breath sounds diffusely, slightly increased expiratory phase with scant expiratory wheeze. No focalizing rales. Breast: Exam deferred. Heart: Regular rate with irregular rhythm and 4/6 holosystolic murmur. No rubs or gallops appreciated. Abdomen: Obese contour with pannus, soft and nontender to palpation with no focalizing tenderness or rebound. No palpable hepatosplenomegaly. Genitalia/rectal: Exam deferred. Extremities: Chronic 3+ nonpitting edema both lower extremities with slightly erythematous skin with soft compression stocking over both legs. No skin breakdown or drainage noted. Fair capillary refill. Skin: Skin changes of lower extremities with otherwise normal color, warm and dry. Neuro: Cranial nerves II through XII grossly intact. No focal motor deficits. No tremor. Psych: Flattened affect and mood. Remote and memory grossly intact Psych Mental Status: mental status grossly normal Speech and Movement: speech and movement normal Mood: congruent mood Affect: normal affect DS: Data Vitals/I&O Vitals and I&O: Vital Signs Temperature 37.5 C 03/17/22 11:40 Temperature Source Tympanic 03/17/22 11:40 Pulse 84 03/17/22 11:49 Pulse Rhythm Irregular 03/17/22 04:21 Respiratory Rate 20 03/17/22 11:49 Respiratory Effort 03/17/22 04:21 Respiratory Depth Shallow 03/17/22 04:21 Respiratory Pattern Tachypnea 03/17/22 04:21 Blood Pressure 138/68 03/17/22 11:40 Blood Pressure Mean 60 03/15/22 16:56 Blood Pressure Position Sitting 03/15/22 15:49 Pulse Oximetry 96 03/17/22 11:49 Oxygen Delivery Method Nasal Cannula 03/17/22 11:40 Oxygen Flow Rate 2 03/17/22 11:40 Fraction of Inspired Oxygen (FIO2) 30 03/17/22 10:30 Pain Level 0 03/17/22 11:40 Comment 03/15/22 21:02 Intake & Output 03/16/22 03/17/22 03/17/22 23:59 11:59 23:59 Intake Total 520 / 2040 460 / 460 Output Total 1875 / 2675 1450 / 1450 Balance -1355 / -635 -990 / -990 Intake: IV 460 / 460 Oral 520 / 1480 Output: Urine 1875 / 2675 1450 / 1450 Other: Urine Color Yellow Yellow Urine Appearance Clear Clear Data Completed and Pending Labs on day of discharge: Labs from last 24 hours 03/17/22 03/17/22 03/16/22 06:19 06:19 12:10 WBC 19.34 H RBC 4.08 Hgb 11.3 Hct 37.2 MCV 91 MCH 27.7 MCHC 30.4 L RDW 15.9 H Plt Count 359 MPV 9.4 Immature Gran % 0.6 Neutrophils % 86.7 Lymphocytes % 7.3 Monocytes % 5.1 Eosinophils % 0.1 Basophils % 0.2 Nucleated RBC % 0.0 Absolute Neutrophils 16.77 H Absolute Lymphocytes 1.41 Absolute Monocytes 0.99 H Absolute Eosinophils 0.02 Absolute Basophils 0.04 VBG pH 7.43 H VBG pCO2 65 H* VBG pO2 40 VBG HCO3 44 H VBG Total CO2 40 H VBG O2 Saturation 75 VBG Base Excess > 15 H Sodium 136 Potassium 4.0 Chloride 96 L Carbon Dioxide 36.8 H Anion Gap 3.2 BUN 19 H Creatinine 0.8 Est GFR (CKD-EPI 2020) 77.75 Glucose 164 H Calcium 9.1 Magnesium 2.0 Preliminary micro results at discharge 03/15/22 21:53 Blood Culture - Preliminary Blood NO GROWTH 24 HOURS 03/15/22 22:03 Blood Culture - Preliminary Blood NO GROWTH 24 HOURS PFSH All Active Problems (Updated 03/18/22 @ 00:00 by MINGO SHANNON) Palliative care patient (Acute) Hypercapnia (Acute) Pneumonia (Acute) Type 2 diabetes mellitus (Chronic) Atrial fibrillation (Chronic) CHF (congestive heart failure) (Chronic) HCAP (healthcare-associated pneumonia) (Acute) Pneumonia (Acute) Abnormal MRI (Acute) 01/19/20 Personal history of nicotine dependence (Acute) Acute on chronic diastolic CHF (congestive heart failure), NYHA class 1 (Acute) Acute on chronic respiratory failure with hypoxia and hypercapnia (Acute) Onychomycosis (Acute) Anterior epistaxis (Acute) Pulmonary nodule (Acute) Morbid obesity (Acute) Vitamin D deficiency (Acute) MRSA (methicillin resistant staph aureus) culture positive (Acute) Hypothyroidism (Chronic) Bilateral cellulitis of lower leg (Acute) Localized swelling of both lower legs (Acute) On amiodarone therapy (Acute) Palliative care patient (Acute) Cellulitis of left lower leg (Acute) Plaque psoriasis (Acute) GERD (gastroesophageal reflux disease) (Chronic) Hypercholesterolemia (Acute) Obesity (Chronic) CHF (congestive heart failure) (Chronic) Family history unobtainable due to patient's condition (Acute) Medical History Acute and chronic respiratory failure with hypercapnia Acute exacerbation of chronic obstructive pulmonary disease Acute on chronic respiratory failure with hypoxia and hypercapnia Acute respiratory distress Acute respiratory distress Altered mental status Arthritis Cellulitis bilateral lower extremities Cellulitis Chronic atrial fibrillation, unspecified Chronic respiratory failure with hypoxia COPD (chronic obstructive pulmonary disease) Diabetes mellitus HCAP (healthcare-associated pneumonia) HCAP (healthcare-associated pneumonia) Hypercarbia Methicillin susceptible Staphylococcus aureus infection as the cause of diseases classified elsewhere Mood disorder Morbid (severe) obesity with alveolar hypoventilation Muscle weakness (generalized) Obesity Pneumonia Sepsis Sepsis Streptococcal bacteremia Toxic metabolic encephalopathy Type 2 diabetes mellitus with hyperglycemia Surgical History H/O hand surgery right index finger removal of tendon sheath ganglion H/O: hysterectomy History of carpal tunnel surgery of right wrist History of excision of lesion abdominal cyst removed S/P appendectomy Family History Father Heart disease 2 UT, at 62 Mother Heart disease Social History Smoking/Tobacco Use Status: Former Tobacco Use Smoking risk assessment performed?: Yes Alcohol Intake: never Drug use: Never Substance use type: does not use Do you feel safe at home: Yes Do you feel safe in your relationship?: Yes Time Spent with Patient Time Spent with Patient: 45-69 minutes Time was spent: ordering medications,tests, procedures, referring, communicating with other health rn patient care and counseling the patient
--- NOTE | 2022-03-17 13:25 | PDOC.CMDIS ---
- If Service Date Differs Date of service: 03/17/22 Time of Service: 13:25 LACE Index Scoring Tool - Questions: Length of Stay (in days): 2 Acuity (Admit via E.D.?): Yes Comorbidities: Diabetes w/o Complication, Congestive Heart Failure, Chronic Pulmonary Disease E.D. Visits: 7 - Answers: Total Score: 14 Risk of Readmission: High Risk Care Management Discharge Reason for Hospitalization: pneumonia, COPD exacerbation Discharge Plan: Marlen returned to the [facility] today via RCT w/c [employer]. She met with Dr. Shetty from Palliative care yesterday, and filled out a new COLST form. Her daughter, Karlie was present via phone for the palliative meeting. She will follow up with the facility provider and discharge plan of care. Patient/Family Education Needs: Review discharge instructions and limitations, discussion of self care needs including ask me three and goals of care. Services Needed at Discharge: Long Term Facility ([facility]), Transportation ([facility]c [employer])
== END 2022-03-17 13:05 | disposition skilled nursing facility (03) | DRG 193 ==
LOC: ER 19:00 → MS 20:31
PROVIDERS: Family Medicine; Nurse Practitioner Family; Admitting Provider Family Medicine; Emergency Provider Emergency Medicine; PCP Family Medicine; Visit Provider Family Medicine
DX: J18.9 Pneumonia, unspecified organism (principal); I50.33 Acute on chronic diastolic (congestive) heart failure; J44.1 Chronic obstructive pulmonary disease with (acute) exacerbation; J96.21 Acute and chronic respiratory failure with hypoxia; J96.22 Acute and chronic respiratory failure with hypercapnia; J44.0 Chronic obstructive pulmonary disease with (acute) lower respiratory infection; I48.19 Other persistent atrial fibrillation; Z68.42 Body mass index [BMI] 45.0-49.9, adult; Z66 Do not resuscitate; Y95 Nosocomial condition; Z91.198 Patient's noncompliance with other medical treatment and regimen for other reason; Z87.891 Personal history of nicotine dependence; E66.01 Morbid (severe) obesity due to excess calories; E55.9 Vitamin D deficiency, unspecified; E03.9 Hypothyroidism, unspecified; L40.0 Psoriasis vulgaris; K21.9 Gastro-esophageal reflux disease without esophagitis; E78.00 Pure hypercholesterolemia, unspecified
CPT/HCPCS: 36415; 51702; 80048; 80053; 82805; 87040; 87081; 87637; 93005; 94640; 96365; 96375; 99285; 36600; 71045; 81003; 83735; 83880; 84443; 84484; 85025; 85610; 93010; 94660; 99223; 99232; 99239; J0131; J0696; J1940; J2060; J2930; J7512; J7613; J7620

== ENCOUNTER 2022-03-22 17:31 | Outpatient (REF) | payer MEDICARE, MEDICAID, SELFPAY ==
[2022-03-22 18:28] LABS: Abs Immature Grans 0.36 10^3/uL (0.0-0.06); Absolute Basophil Count 0.06 10^3/uL (0.0-0.2); Basophils % 0.3; HCT 39.3 % (36.0-46.0); HGB 11.6 g/dL (11.2-15.7); Immature Grans % 1.9; Lymphocytes % 12.6; MCH 27.5 pg (27.0-33.0); MCHC 29.5 % (32.0-36.0); MCV 93 fL (80-95); MPV 9.1 fL (8.0-11.0); Neutrophils % 79.2; Platelet Count 423 10^3/uL (130-400); RBC 4.22 10^6/uL (3.93-5.22); RDW 15.9 % (11.7-14.6); RDW-SD 54.4 fL; WBC 18.94 10^3/uL (4.4-10.8)
[2022-03-22 18:33] LABS: Absolute Eosinophil Count 0.19 10^3/uL (0.0-0.7); Absolute Lymphocyte Count 2.39 10^3/uL (1.2-3.4); Absolute Monocyte Count 0.95 10^3/uL (0.1-0.8)
[2022-03-22 18:54] LABS: ALT 23 U/L (14-59); AST 17 U/L (15-37); Albumin 3.2 g/dL (3.4-5.0); Alkaline Phosphatase 65 U/L (46-116); Anion Gap 2.2 mmol/L (3-11); BUN 17 mg/dL (7-18); Bilirubin, Total 0.2 mg/dL (0.2-1.0); CO2 40.8 mmol/L (21.0-32.0); Chloride 96 mmol/L (98-107); Estimated GFR 59.49 (mL/min/1.73m2); Ferritin 28 ng/mL (8-252); Glucose 145 mg/dL (74-106); Potassium 3.8 mmol/L (3.5-5.1); Sodium 139 mmol/L (136-145); TSH (W/Ref FT4) 2.66 uIU/mL (0.36-3.74); Total Protein 6.9 g/dL (6.4-8.2)
[2022-03-22 19:00] LABS: Hemoglobin A1C 6.2 % (<5.7)
[2022-03-22 19:19] LABS: NT-proBNP 178 pg/mL (<300)
== END 2022-03-22 17:32 | disposition home or self-care (01) ==
LOC: LBN 17:31
PROVIDERS: PCP Family Medicine; Visit Provider Nurse Practitioner Gerontology
DX: E11.65 Type 2 diabetes mellitus with hyperglycemia (principal); J44.9 Chronic obstructive pulmonary disease, unspecified; R60.9 Edema, unspecified; R68.89 Other general symptoms and signs
CPT/HCPCS: 80053; 82728; 83036; 83880; 84443; 85025

== ENCOUNTER 2022-04-11 18:20 | Outpatient (REF) | payer MEDICARE, MEDICAID, SELFPAY ==
[2022-04-11 18:59] LABS: Abs Immature Grans 0.15 10^3/uL (0.0-0.06); Absolute Basophil Count 0.05 10^3/uL (0.0-0.2); Absolute Eosinophil Count 0.24 10^3/uL (0.0-0.7); Absolute Lymphocyte Count 1.42 10^3/uL (1.2-3.4); Absolute Monocyte Count 0.69 10^3/uL (0.1-0.8); Absolute Neutrophil Count 8.03 10^3/uL (1.2-6.7); Basophils % 0.5; Eosinophils % 2.3; HGB 10.4 g/dL (11.2-15.7); Immature Grans % 1.4; Lymphocytes % 13.4; MCH 27.3 pg (27.0-33.0); MCHC 28.9 % (32.0-36.0); MCV 95 fL (80-95); MPV 8.8 fL (8.0-11.0); Monocytes % 6.5; Neutrophils % 75.9; Platelet Count 382 10^3/uL (130-400); RBC 3.81 10^6/uL (3.93-5.22); RDW 16.8 % (11.7-14.6); RDW-SD 57.9 fL; WBC 10.58 10^3/uL (4.4-10.8)
[2022-04-11 19:09] LABS: ALT 15 U/L (14-59); AST 15 U/L (15-37); Albumin 2.7 g/dL (3.4-5.0); Alkaline Phosphatase 99 U/L (46-116); Anion Gap 1.3 mmol/L (3-11); BUN 14 mg/dL (7-18); Bilirubin, Total 0.2 mg/dL (0.2-1.0); CO2 43.7 mmol/L (21.0-32.0); Calcium 8.7 mg/dL (8.5-10.1); Chloride 94 mmol/L (98-107); Estimated GFR 59.49 (mL/min/1.73m2); Glucose 175 mg/dL (74-106); Potassium 3.9 mmol/L (3.5-5.1); Sodium 139 mmol/L (136-145); Total Protein 6.2 g/dL (6.4-8.2)
[2022-04-11 19:36] LABS: NT-proBNP 210 pg/mL (<300)
== END 2022-04-11 18:21 | disposition home or self-care (01) ==
LOC: LBN 18:20
PROVIDERS: PCP Family Medicine; Visit Provider Nurse Practitioner Gerontology
DX: I50.813 Acute on chronic right heart failure (principal); E11.9 Type 2 diabetes mellitus without complications; E03.9 Hypothyroidism, unspecified; I10 Essential (primary) hypertension
CPT/HCPCS: 80053; 83880; 85025